=== PATIENT | female | born 1940 | race Caucasian/White ===

== ENCOUNTER 2017-01-20 20:18 | Inpatient (IN) | payer MEDICARE, BC, SELFPAY | END 2017-01-24 20:00 | disposition home or self-care (01) | DRG 222 | PROVIDERS: Admitting Provider Family Medicine; Emergency Provider Emergency Medicine; Family Provider Family Medicine; Visit Provider Family Medicine | DX: I21.4 Non-ST elevation (NSTEMI) myocardial infarction (principal); I50.23 Acute on chronic systolic (congestive) heart failure; Z45.02 Encounter for adjustment and management of automatic implantable cardiac defibrillator; I25.119 Atherosclerotic heart disease of native coronary artery with unspecified angina pectoris | CPT/HCPCS: 33225; 33249; 36415; 71010; 80048; 80053; 81001; 82550; 82553; 82803; 83880; 84484; 85025; 85610; 93005; 93041; 93306; 93458; 96365; 96375; 96376; 99151; 99285; C1725; C1769; C1882; C1894; C1895; C1898; C1900; J1644; Q9967 ==

== ENCOUNTER → 2017-02-01 | Outpatient (CLI) | payer MEDICARE, BC, SELFPAY | PROVIDERS: Visit Provider Internal Medicine | DX: I10 Essential (primary) hypertension (principal); I25.10 Atherosclerotic heart disease of native coronary artery without angina pectoris; E78.5 Hyperlipidemia, unspecified; Z95.810 Presence of automatic (implantable) cardiac defibrillator | CPT/HCPCS: 36415; 80048; 80076; 85025 ==

== ENCOUNTER → 2017-02-08 | Outpatient (CLI) | payer MEDICARE, BC, SELFPAY | PROVIDERS: Visit Provider Internal Medicine Cardiovascular Disease | DX: Z95.810 Presence of automatic (implantable) cardiac defibrillator (principal); I10 Essential (primary) hypertension; I25.10 Atherosclerotic heart disease of native coronary artery without angina pectoris; E78.5 Hyperlipidemia, unspecified | CPT/HCPCS: 36415; 80048; 80076; 85025 ==

== ENCOUNTER → 2017-02-09 | Outpatient (CLI) | payer MEDICARE, BC, SELFPAY | PROVIDERS: PCP Family Medicine; Visit Provider Family Medicine | DX: R41.3 Other amnesia (principal) | CPT/HCPCS: 70450 ==

== ENCOUNTER 2017-02-22 21:56 | Emergency (ER) | payer MEDICARE, BC, SELFPAY ==
[2017-02-22 21:59] VITALS: BP 149/65; PULSE 92; RESP 16; TEMP 37.1; O2SAT 96; BMI 29.9
--- NOTE | 2017-02-22 22:04 | [facility]H.EDCP ---
ED Disposition Clinical Impression: Pacemaker Chest pain Qualifiers: Chest pain type: precordial pain Qualified Code(s): R07.2 - Precordial pain Anemia Qualifiers: Anemia type: unspecified type Qualified Code(s): D64.9 - Anemia, unspecified CAD (coronary artery disease) Qualifiers: Coronary Disease-Associated Artery/Lesion type: unspecified vessel or lesion type [place] vs. transplanted heart: [place] heart Associated angina: angina presence unspecified Qualified Code(s): I25.10 - Atherosclerotic heart disease of [place] coronary artery without angina pectoris Disposition: Home, Self-Care Condition on Discharge: Good Instructions: DI for Chest Pain Referrals: Heath Rogers MD [Primary Care Provider] - - Critical Care Critical Care Time: No Attestation: On 02/22/17, the high probability of a clinically significant, sudden or life threatening deterioration of the following system(s) required my full and direct attention, intervention and personal management. The time I documented below is in addition to time spent performing reported procedures but includes the following listed in this critical care notation. Medical Decision Making - Medical Records Medical records reviewed: Yes: I reviewed the patient's medical records. Vital Signs: 02/22/17 21:59 02/22/17 22:32 02/22/17 23:02 Temperature 98.7 F Temperature Source Oral Pulse Rate [Left Radial] 92 H 81 85 Respiratory Rate 16 20 20 Blood Pressure [Left Arm] 149/65 161/100 161/73 Blood Pressure Mean [Left Arm] 93 120 102 Blood Pressure Source [Left Arm] Automatic Cuff Automatic Cuff Automatic Cuff Blood Pressure Position [Left Arm] Sitting Sitting 02 Sat by Pulse Oximetry 96 Oxygen Delivery Method Room Air 02/22/17 23:30 Temperature Temperature Source Pulse Rate [Left Radial] 79 Respiratory Rate 18 Blood Pressure [Left Arm] 148/58 Blood Pressure Mean [Left Arm] 88 Blood Pressure Source [Left Arm] Automatic Cuff Blood Pressure Position [Left Arm] Sitting 02 Sat by Pulse Oximetry 98 Oxygen Delivery Method Room Air - Lab Data Lab results reviewed: Yes: I reviewed the patient's lab results. Lab Results 02/22/17 23:00: WBC 6.1, RBC 3.43 L, Hgb 10.5 L, Hct 32.3 L, MCV 94.0, MCH 30.6, MCHC 32.6, RDW 15.0, Plt Count 239, MPV 7.4, Neut % (Auto) 65.0, Lymph % (Auto) 26.2, [place] % (Auto) 4.9, Eos % (Auto) 3.3, Baso % (Auto) 0.6, Neut # (Auto) 3.9, Lymph # (Auto) 1.6, [place] # (Auto) 0.3, Eos # (Auto) 0.2, Baso # (Auto) 0.0 02/22/17 23:00: Sodium 146 H, Potassium 3.8, Chloride 108 H, Carbon Dioxide 30, Anion Gap 11.8, BUN 14, Creatinine 0.84, Estimated Creat Clear 53, Estimated GFR 66, Est GFR ( Amer) 80, Glucose 178 H, Calcium 8.8, Total Bilirubin 0.1 L, AST 23, ALT 21, Alkaline Phosphatase 142 H, Total Creatine Kinase 90, CK-MB (CK-2) 1.3, CK-MB (CK-2) Rel Index 1.4, Troponin I < 0.02, Total Protein 6.8, Albumin 2.8 L, Globulin 4.0 H, Albumin/Globulin Ratio 0.7 L Result diagrams: 02/22/17 23:00 02/22/17 23:00 Orders (Tests/Meds): ORDERS Category Date Time Status XR chest 2V Stat Exams 02/22/17 22:14 Taken ECG Request by /Nse Stat Y 02/22/17 22:14 Ordered - Radiology Data #1 Image(s): Chest Image Reviewed: Yes I reviewed the patient's radiology image Preliminary Findings: Normal/NAD - ECG Data Tracing #1 Arrhythmias present: other (paced) - Physician Consults Physician Consulted: parker Reason -: Pt condition - Chuy Inquiry Pt receiving controlled substance: No Chest Pain HPI - General Stated Complaint: CHEST PAIN Time Seen by Provider: 02/22/17 22:04 Mode of Arrival: Family Vehicle Source of Information: Patient, Relative, Medical Record Limitations: No Limitations - History of Present Illness HPI narrative: this wf with recent heart cath but no stents with pacemaker has been tired but ok over the last few weeks but took ntg sl for 2 days in row and presents for follow up - no p
--- NOTE | 2017-02-22 22:14 | XR_ITS ---
XR chest 2V HISTORY: ITS.REASON: CHEST PAIN ORDERING PHYSICIAN: Tomy Farley MD PATIENT AGE: 76 years COMPARISON: 01/24/2017 FINDINGS: There is borderline cardiomegaly without failure. Tripolar pacemaker is present with AICD device. Pleural thickening noted in the right lateral hemithorax inferiorly similar to the previous exam. No lobar consolidation or collapse. No acute bony anomalies. IMPRESSION: 1. Borderline cardiomegaly without failure with pacemaker device present 2. Chronic pleural thickening on the right. 3. No change with no acute finding
--- NOTE | 2017-02-22 22:17 | PC.NURSE ---
PT REPORTS SHE TOOK ONE SL NITRO PILL PRIOR TO COMING TO THE ED. AND THAT SHE HAS ALREADY TAKEN 81MG OF ASPIRIN.
--- NOTE | 2017-02-22 22:25 | PC.NURSE ---
PT TO X-RAY
[2017-02-22 22:32] VITALS: BP 161/100; PULSE 81; RESP 20
[2017-02-22 23:02] VITALS: BP 161/73; PULSE 85; RESP 20
[2017-02-22 23:30] VITALS: BP 148/58; PULSE 79; RESP 18; O2SAT 98
[2017-02-22 23:43] LABS: Basophils % 0.6 % (0.1-2.0); Eosinophils # 0.2 K/mm3 (0.0-0.4); Eosinophils % 3.3 % (0.1-12.0); Hematocrit 32.3 % (37.0-47.0); Hemoglobin 10.5 g/dL (12.2-16.2); Lymphocytes # 1.6 K/mm3 (0.7-4.5); Lymphocytes % 26.2 K/mm3 (10-50); Mean Corpuscular HGB Conc 32.6 g/dL (31.8-35.4); Mean Corpuscular Hemoglobin 30.6 pg (27.0-31.2); Mean Platelet Volume 7.4 fl (7.4-10.4); Monocytes # 0.3 K/mm3 (0.1-1.0); Monocytes % 4.9 % (1.7-9.3); Neutrophils # 3.9 K/mm3 (1.8-7.8); Platelet Count 239 K/mm3 (142-424); Red Blood Count 3.43 M/mm3 (4.20-5.40); White Blood Count 6.1 K/mm3 (4.8-10.8)
[2017-02-23 00:10] LABS: Alanine Aminotransferase 21 U/L (12-78); Albumin Level 2.8 gm/dL (3.4-5.0); Albumin/Globulin Ratio 0.7 (1.1-1.8); Alkaline Phosphatase 142 U/L (46-116); Anion Gap 11.8 mEq/L (5-15); Aspartate Amino Transferase 23 U/L (15-37); Bilirubin,Total 0.1 mg/dL (0.2-1.0); Blood Urea Nitrogen 14 mg/dL (7-18); CKMB Relative Index 1.4 U/L (0-4.0); Calcium 8.8 mg/dL (8.5-10.1); Carbon Dioxide 30 mmol/L (21.0-32.0); Chloride 108 mmol/L (98-107); Creatine Kinase 90 U/L (26-192); Creatine Kinase MB 1.3 mg/ml (0.0-3.6); Creatinine Clearance Estimated 53 mL/min (0-300); Creatinine,Serum 0.84 mg/dL (0.55-1.02); Estimated Glomerular Filt Rate 66 ml/min (>60); GFR (African American) 80 ML/MIN (>60); Glucose 178 mg/dL (74-106); Potassium 3.8 mmoL/L (3.5-5.1); Sodium 146 mmol/L (136-145); Total Protein,Serum 6.8 gm/dL (6.4-8.2); Troponin I < 0.02 ng/ml (0.00-0.06)
[2017-02-23 01:24] VITALS: BP 140/52; PULSE 87; RESP 20
== END 2017-02-23 01:33 | disposition home or self-care (01) ==
PROVIDERS: Emergency Provider Emergency Medicine; PCP Family Medicine
DX: R07.2 Precordial pain (principal); I25.10 Atherosclerotic heart disease of native coronary artery without angina pectoris; Z95.0 Presence of cardiac pacemaker; D64.9 Anemia, unspecified; I11.0 Hypertensive heart disease with heart failure; I50.9 Heart failure, unspecified; I25.2 Old myocardial infarction; Z87.891 Personal history of nicotine dependence; Z79.02 Long term (current) use of antithrombotics/antiplatelets; Z79.82 Long term (current) use of aspirin; Z79.899 Other long term (current) drug therapy
CPT/HCPCS: 71046; 80053; 82550; 82553; 84484; 85025; 93005; 93041; 99284

== ENCOUNTER 2017-02-24 10:45 | Observation (INO) | payer MEDICARE, BC, SELFPAY ==
[2017-02-24] VITALS (7 sets, daily range): BP systolic 115–140; BP diastolic 44–88; PULSE 65–80; RESP 14–22; TEMP 36.7–36.9; O2SAT 92–98; BMI 29.2; BMI 30.7
--- NOTE | 2017-02-24 10:57 | XR_ITS ---
XR chest 2V HISTORY: ITS.REASON: chest pain ORDERING PHYSICIAN: Baldo Watson MD PATIENT AGE: 76 years COMPARISON: 02/22/2017 FINDINGS: Borderline cardiomegaly with cardiac pacemaker device once again noted unchanged. No evidence of CHF. Pleural thickening persists along the right lateral hemithorax inferiorly. The lungs are otherwise clear. No acute bony anomalies. IMPRESSION: No change cardiomegaly with pacemaker device present and pleural thickening. No change with no acute finding
--- NOTE | 2017-02-24 11:07 | [facility]H.EDCP ---
ED Disposition Clinical Impression: Chest pain, Exertional dyspnea, Elevated d-dimer, Stable angina, CAD (coronary artery disease) Disposition: Still a Patient Condition on Discharge: Fair - Critical Care Critical Care Time: No Attestation: On , the high probability of a clinically significant, sudden or life threatening deterioration of the following system(s) required my full and direct attention, intervention and personal management. The time I documented below is in addition to time spent performing reported procedures but includes the following listed in this critical care notation. Medical Decision Making Vital Signs: 02/24/17 10:45 02/24/17 12:08 Temperature 98.2 F Temperature Source Oral Pulse Rate [Left Brachial] 73 78 Respiratory Rate 16 14 Blood Pressure [Right Arm] 116/88 115/74 Blood Pressure Mean [Right Arm] 97 87 Blood Pressure Source [Right Arm] Automatic Cuff Automatic Cuff Blood Pressure Position [Right Arm] Sitting Sitting 02 Sat by Pulse Oximetry 95 98 Oxygen Delivery Method Room Air Room Air - Lab Data Lab Results 02/24/17 10:50: WBC 7.5, RBC 3.48 L, Hgb 10.5 L, Hct 32.5 L, MCV 93.3, MCH 30.3, MCHC 32.4, RDW 15.0, Plt Count 263, MPV 7.7, Neut % (Auto) 68.6, Lymph % (Auto) 22.6, [place] % (Auto) 5.1, Eos % (Auto) 3.1, Baso % (Auto) 0.6, Neut # (Auto) 5.2, Lymph # (Auto) 1.7, [place] # (Auto) 0.4, Eos # (Auto) 0.2, Baso # (Auto) 0.1 02/24/17 10:50: Sodium 140, Potassium 3.8, Chloride 103, Carbon Dioxide 29, Anion Gap 11.8, BUN 14, Creatinine 1.12 H D, Estimated Creat Clear 47, Estimated GFR 47 L, Est GFR ( Amer) 57 L D, Glucose 112 H, Calcium 8.6, Total Bilirubin 0.2, AST 27, ALT 22, Alkaline Phosphatase 143 H, Total Creatine Kinase 84, CK-MB (CK-2) 1.0, CK-MB (CK-2) Rel Index 1.2, Troponin I < 0.02, Total Protein 6.8, Albumin 2.9 L, Globulin 3.9 H, Albumin/Globulin Ratio 0.7 L 02/24/17 10:50: D-Dimer 1520 H* 02/24/17 10:50: B-Natriuretic Peptide 70 02/24/17 10:50: Digoxin 0.76 L Result diagrams: 02/24/17 10:50 02/24/17 10:50 Orders (Tests/Meds): ED MEDICATIONS Discontinued Medications Generic Name Dose Route Start Last Admin Trade Name Indy PRN Reason Stop Dose Admin Enoxaparin Sodium 60 mg 02/24/17 12:22 02/24/17 12:30 Lovenox 60mg/0.6ml Syringe SQ 02/24/17 12:23 60 mg ONCE ONE Administration Famotidine 20 mg 02/24/17 12:23 02/24/17 12:30 Pepcid 20mg/2ml Vial IV 02/24/17 12:24 20 mg ONCE ONE Administration Furosemide 20 mg 02/24/17 11:15 02/24/17 11:16 Lasix 20mg/2ml Vial IV 02/24/17 11:16 20 mg ONCE ONE Administration Iopamidol 70 ml 02/24/17 13:32 02/24/17 13:34 [id number]; 75ml Vial IV 02/24/17 13:33 70 ml ONCE ONE Administration Sodium Chloride 40 ml 02/24/17 13:32 02/24/17 13:34 Rad-Ns 50ml Vial IV 02/24/17 13:33 40 ml ONCE ONE Administration Sodium Chloride 10 ml 02/24/17 13:32 02/24/17 13:34 Rad-Saline Flush 10ml Syringe IV 02/24/17 13:33 10 ml ONCE ONE Administration - ECG Data Tracing #1 I reviewed this ECG and interpreted as documented below: Twelve-lead EKG shows a paced rhythm at 73/min. ECG initial impression date: 02/24/17 - Chuy Inquiry Pt receiving controlled substance: No [place] was queried for this patient: No Medical Decision Making Narrative: The patient had a normal BNP and troponin, she did have highly elevated d-dimer and I ordered a CT scan PE protocol and was given first dose of Lovenox. The case was discussed with Dr. Sawant who recommended observation. The case was discussed with Dr. Rogers who agreed to admit the patient CT scan was negative for PE. Chest Pain HPI - General Chief Complaint: Chest Pain Stated Complaint: Chest Pain Time Seen by Provider: 02/24/17 11:07 Mode of Arrival: Wheelchair Limitations: No Limitations Description of Symptoms (Recalled from ER Triage Doc. by RN): Pt c/o dull achey chest pain that started around 7:
--- NOTE | 2017-02-24 11:10 | ED_ITS ---
ED Disposition Clinical Impression: Chest pain, Exertional dyspnea, Elevated d-dimer, Stable angina, CAD (coronary artery disease) Disposition: Still a Patient Condition on Discharge: Fair - Critical Care Critical Care Time: No Attestation: On , the high probability of a clinically significant, sudden or life threatening deterioration of the following system(s) required my full and direct attention, intervention and personal management. The time I documented below is in addition to time spent performing reported procedures but includes the following listed in this critical care notation. Medical Decision Making Vital Signs: 02/24/17 10:45 02/24/17 12:08 Temperature 98.2 F Temperature Source Oral Pulse Rate [Left Brachial] 73 78 Respiratory Rate 16 14 Blood Pressure [Right Arm] 116/88 115/74 Blood Pressure Mean [Right Arm] 97 87 Blood Pressure Source [Right Arm] Automatic Cuff Automatic Cuff Blood Pressure Position [Right Arm] Sitting Sitting 02 Sat by Pulse Oximetry 95 98 Oxygen Delivery Method Room Air Room Air - Lab Data Lab Results 02/24/17 10:50: WBC 7.5, RBC 3.48 L, Hgb 10.5 L, Hct 32.5 L, MCV 93.3, MCH 30.3 , MCHC 32.4, RDW 15.0, Plt Count 263, MPV 7.7, Neut % (Auto) 68.6, Lymph % (Auto ) 22.6, [place] % (Auto) 5.1, Eos % (Auto) 3.1, Baso % (Auto) 0.6, Neut # (Auto) 5.2, Lymph # (Auto) 1.7, [place] # (Auto) 0.4, Eos # (Auto) 0.2, Baso # (Auto) 0.1 02/24/17 10:50: Sodium 140, Potassium 3.8, Chloride 103, Carbon Dioxide 29, Anion Gap 11.8, BUN 14, Creatinine 1.12 H D, Estimated Creat Clear 47, Estimated GFR 47 L, Est GFR ( Amer) 57 L D, Glucose 112 H, Calcium 8.6, Total Bilirubin 0.2, AST 27, ALT 22, Alkaline Phosphatase 143 H, Total Creatine Kinase 84, CK-MB (CK-2) 1.0, CK-MB (CK-2) Rel Index 1.2, Troponin I < 0.02, Total Protein 6.8, Albumin 2.9 L, Globulin 3.9 H, Albumin/Globulin Ratio 0.7 L 02/24/17 10:50: D-Dimer 1520 H* 02/24/17 10:50: B-Natriuretic Peptide 70 02/24/17 10:50: Digoxin 0.76 L Result diagrams: 02/24/17 10:50 02/24/17 10:50 Orders (Tests/Meds): ED MEDICATIONS Discontinued Medications Generic Name Dose Route Start Last Admin Trade Name Indy PRN Reason Stop Dose Admin Enoxaparin Sodium 60 mg 02/24/17 12:22 02/24/17 12:30 Lovenox 60mg/0.6ml Syringe SQ 02/24/17 12:23 60 mg ONCE ONE Administration Famotidine 20 mg 02/24/17 12:23 02/24/17 12:30 Pepcid 20mg/2ml Vial IV 02/24/17 12:24 20 mg ONCE ONE Administration Furosemide 20 mg 02/24/17 11:15 02/24/17 11:16 Lasix 20mg/2ml Vial IV 02/24/17 11:16 20 mg ONCE ONE Administration Iopamidol 70 ml 02/24/17 13:32 02/24/17 13:34 [id number]; 75ml Vial IV 02/24/17 13:33 70 ml ONCE ONE Administration Sodium Chloride 40 ml 02/24/17 13:32 02/24/17 13:34 Rad-Ns 50ml Vial IV 02/24/17 13:33 40 ml ONCE ONE Administration Sodium Chloride 10 ml 02/24/17 13:32 02/24/17 13:34 Rad-Saline Flush 10ml Syringe IV 02/24/17 13:33 10 ml ONCE ONE Administration - ECG Data Tracing #1 I reviewed this ECG and interpreted as documented below: Twelve-lead EKG shows a paced rhythm at 73/min. ECG initial impression date: 02/24/17 - Chuy Inquiry Pt receiving controlled substance: No Chuy was queried for this patient: No Medical Decision Becky
[2017-02-24 11:11] LABS: Basophils # 0.1 K/mm3 (0-0.2); Basophils % 0.6 % (0.1-2.0); Eosinophils # 0.2 K/mm3 (0.0-0.4); Eosinophils % 3.1 % (0.1-12.0); Hematocrit 32.5 % (37.0-47.0); Hemoglobin 10.5 g/dL (12.2-16.2); Lymphocytes # 1.7 K/mm3 (0.7-4.5); Lymphocytes % 22.6 K/mm3 (10-50); Mean Corpuscular HGB Conc 32.4 g/dL (31.8-35.4); Mean Corpuscular Hemoglobin 30.3 pg (27.0-31.2); Mean Corpuscular Volume 93.3 fl (81-99); Mean Platelet Volume 7.7 fl (7.4-10.4); Monocytes # 0.4 K/mm3 (0.1-1.0); Monocytes % 5.1 % (1.7-9.3); Neutrophils # 5.2 K/mm3 (1.8-7.8); Neutrophils % 68.6 % (37.0-80.0); Platelet Count 263 K/mm3 (142-424); Red Blood Count 3.48 M/mm3 (4.20-5.40); White Blood Count 7.5 K/mm3 (4.8-10.8)
[2017-02-24 11:38] LABS: Alanine Aminotransferase 22 U/L (12-78); Albumin Level 2.9 gm/dL (3.4-5.0); Albumin/Globulin Ratio 0.7 (1.1-1.8); Alkaline Phosphatase 143 U/L (46-116); Anion Gap 11.8 mEq/L (5-15); Aspartate Amino Transferase 27 U/L (15-37); Bilirubin,Total 0.2 mg/dL (0.2-1.0); Blood Urea Nitrogen 14 mg/dL (7-18); CKMB Relative Index 1.2 U/L (0-4.0); Calcium 8.6 mg/dL (8.5-10.1); Carbon Dioxide 29 mmol/L (21.0-32.0); Chloride 103 mmol/L (98-107); Creatine Kinase 84 U/L (26-192); Creatinine Clearance Estimated 47 mL/min (0-300); Creatinine,Serum 1.12 mg/dL (0.55-1.02); Estimated Glomerular Filt Rate 47 ml/min (>60); GFR (African American) 57 ML/MIN (>60); Globulin 3.9 gm/dl (1.3-3.2); Glucose 112 mg/dL (74-106); Potassium 3.8 mmoL/L (3.5-5.1); Sodium 140 mmol/L (136-145); Total Protein,Serum 6.8 gm/dL (6.4-8.2); Troponin I < 0.02 ng/ml (0.00-0.06)
[2017-02-24 12:10] LABS: D-Dimer 1520 (0-400)
[2017-02-24 12:27] LABS: Digoxin 0.76 ng/mL (1.15-2.56)
--- NOTE | 2017-02-24 13:27 | CT_ITS ---
CT angio chest HISTORY: Shortness of air, history of CHF ITS.REASON: SOA, R/O PE, CHF ORDERING PHYSICIAN: Heath Rogers MD PATIENT AGE: 76 years TECHNIQUE: Helical acquisition obtained following the bolus administration of 75 mL of Isovue 370 followed by a saline bolus. Axial, sagittal, and coronal reformatted images are generated and reviewed. COMPARISON: None FINDINGS: No evidence of aortic aneurysm, or dissection. No evidence of pulmonary embolus. The aorta shows some calcific plaque. No aneurysm or dissection of the aorta. Normal heart size without evidence of pericardial effusion. There is cardiac pacemaker device present by the left subclavian approach. The lungs are free of acute infiltrate. No effusions or lobar consolidation. There are scattered calcified granulomas. There is mild pleural in the right lower hemithorax laterally There is a small hiatal hernia. Upper abdominal images are unremarkable. No acute bony anomalies. IMPRESSION: No acute finding. No evidence of pulmonary embolus or aortic aneurysm.
[2017-02-24 15:56] LABS: Troponin I < 0.02 ng/ml (0.00-0.06)
--- NOTE | 2017-02-24 16:47 | HMH.CARDCON2 ---
History of Present Illness Consult date: 02/24/17 Requesting physician: Heath Rogers Consult reason: chest pain, shortness of breath Chief complaint: Chest pains, SOA History of present illness: 76-year-old white female with known coronary artery disease with a recent coronary stenting earlier last year and recent coronary angiogram last month without need for intervention at that time presented to the emergency department with recurrent episodes of chest pain that resolved with nitroglycerin sublingual. Patient relates associated shortness of breath. Symptoms occur with ordinary activities of daily living and around the house including cleaning or doing her laundry. She denies missing any of her medications but has quite a collection of meds that she no longer takes and I am concerned that maybe she has been confused about what to take. Patient was seen in the emergency department with workup unremarkable. Patient was admitted for observation with cardiology consult for further evaluation. Of note, on her cardiac catheterization last month, patient had either an in-stent restenosis or an underexpanded stent in the LAD. Plan was to treat medically, but at this time, since patient has had recurrent chest pain that resolves with nitroglycerin the plan was to admit the patient for cardiac catheterization. Review of Systems - *Cardiovascular Reports chest pain, Reports chest pain with activity, Reports shortness of breath with activity - *Respiratory Reports shortness of breath [facility] History Medical History: Reports:: Atrial Fibrillation, Cancer (skin), Congestive Heart Failure, Coronary Artery Disease, Hypertension, Myocardial Infarction Denies:: Diabetes Mellitus Type 1, Diabetes Mellitus Type 2, MRSA Other Medical History: Reports: Anemia, Cataracts Other Surgeries: Yes: Appendectomy, Hysterectomy-Total, Pacemaker, Other Amputation: No Fractures: No - *Social History Educational Level: Completed GED/General Educational Development Smoking Status: Former smoker Tobacco Type: cigarettes Smoking End Date: 4 YEARS Alcohol Intake: never Alcohol Intake Frequency:: a few times a month Occupational Status: retired Housing: house Household Members: children - Psychiatric History Expresses thoughts of harming self/others: None Suicide Plan Description: No Plan *Family Hx:: Coronary Artery Disease, Heart Attack Meds Home Medications Medication Instructions Recorded Confirmed Type clopidogrel 75 mg tablet 75 mg PO QDAY 02/17/17 02/24/17 History albuterol sulfate HFA 90 2 puff INHALATION Q6H PRN 02/18/17 02/24/17 History mcg/actuation aerosol inhaler aspirin 81 mg tablet,delayed 81 mg PO DAILY 02/18/17 02/24/17 History release budesonide-formoterol HFA 160 2 puff INHALATION Q12H PRN 02/18/17 02/24/17 History mcg-4.5 mcg/actuation aerosol inhaler gabapentin 600 mg tablet 600 mg PO TID 02/18/17 02/24/17 History multivitamin tablet 1 tab PO DAILY 02/18/17 02/24/17 History nitroglycerin 0.4 mg sublingual 0.4 mg SUBLINGUAL NEEDED PRN 02/18/17 02/24/17 History tablet Digoxin 125 mcg PO DAILY 02/22/17 02/24/17 History Isosorbide Mononitrate [Imdur 60mg 60 mg PO DAILY 02/22/17 02/24/17 History ER tablet] Losartan Potassium [Cozaar] 100 mg PO QDAY 02/22/17 02/24/17 History Pantoprazole Sodium [Protonix 40mg 40 mg PO DAILY 02/22/17 02/24/17 History tablet] Acetaminophen with Codeine 1 tab PO Q6HP PRN 02/24/17 02/24/17 History [Tylenol with Codeine #3 tablet] Escitalopram Oxalate [Lexapro] 20 mg PO DAILY 02/24/17 02/24/17 History Furosemide [Lasix 40mg tab] 40 mg PO BID 02/24/17 02/24/17 History Pramipexole Di-HCl [Mirapex] 2 mg PO HS 02/24/17 02/24/17 History Trazodone HCl 150 mg PO HS 02/24/17 02/24/17 History Allergies Allergy/AdvReac Type Severity Reaction Status Date / Time No Known Allergies Allergy Verified 02/22/17 22:07 Exam Vital signs and Labs for Last 24 Hours:
--- NOTE | 2017-02-24 16:51 | P.CONS_ITS ---
History of Present Illness Consult date: 02/24/17 Requesting physician: Heath Rogers Consult reason: chest pain, shortness of breath Chief complaint: Chest pains, SOA History of present illness: 76-year-old white female with known coronary artery disease with a recent coronary stenting earlier last year and recent coronary angiogram last month without need for intervention at that time presented to the emergency department with recurrent episodes of chest pain that resolved with nitroglycerin sublingual. Patient relates associated shortness of breath. Symptoms occur with ordinary activities of daily living and around the house including cleaning or doing her laundry. She denies missing any of her medications but has quite a collection of meds that she no longer takes and I am concerned that maybe she has been confused about what to take. Patient was seen in the emergency department with workup unremarkable. Patient was admitted for observation with cardiology consult for further evaluation. Of note, on her cardiac catheterization last month, patient had either an in-stent restenosis or an underexpanded stent in the LAD. Plan was to treat medically, but at this time, since patient has had recurrent chest pain that resolves with nitroglycerin the plan was to admit the patient for cardiac catheterization. Review of Systems - *Cardiovascular Reports chest pain, Reports chest pain with activity, Reports shortness of breath with activity - *Respiratory Reports shortness of breath [facility] History Medical History: Reports:: Atrial Fibrillation, Cancer (skin), Congestive Heart Failure, Coronary Artery Disease, Hypertension, Myocardial Infarction Denies:: Diabetes Mellitus Type 1, Diabetes Mellitus Type 2, MRSA Other Medical History: Reports: Anemia, Cataracts Other Surgeries: Yes: Appendectomy, Hysterectomy-Total, Pacemaker, Other Amputation: No Fractures: No - *Social History Educational Level: Completed GED/General Educational Development Smoking Status: Former smoker Tobacco Type: cigarettes Smoking End Date: 4 YEARS Alcohol Intake: never Alcohol Intake Frequency:: a few times a month Occupational Status: retired Housing: house Household Members: children - Psychiatric History Expresses thoughts of harming self/others: None Suicide Plan Description: No Plan *Family Hx:: Coronary Artery Disease, Heart Attack Meds Home Medications Medication Instructions Recorded Confirmed Type clopidogrel 75 mg tablet 75 mg PO QDAY 02/17/17 02/24/17 History albuterol sulfate HFA 90 2 puff INHALATION Q6H PRN 02/18/17 02/24/17 History mcg/actuation aerosol inhaler aspirin 81 mg tablet,delayed 81 mg PO DAILY 02/18/17 02/24/17 History release budesonide-formoterol HFA 160 2 puff INHALATION Q12H PRN 02/18/17 02/24/17 History mcg-4.5 mcg/actuation aerosol inhaler gabapentin 600 mg tablet 600 mg PO TID 02/18/17 02/24/17 History multivitamin tablet 1 tab PO DAILY 02/18/17 02/24/17 History nitroglycerin 0.4 mg sublingual 0.4 mg SUBLINGUAL NEEDED PRN 02/18/17 History tablet Digoxin 125 mcg PO DAILY 02/22/17 02/24/17 History Isosorbide Mononitrate [Imdur 60mg 60 mg PO DAILY 02/22/17 02/24/17 History ER tablet] Losartan Potassium [Cozaar] 100 mg PO QDAY 02/22/17 02/24/17 History Pantoprazole Sodium [Protonix 40mg 40 mg PO DAILY 02/22/17 02/24/17 History tablet] Acetaminophen with Codeine 1 tab PO Q6HP PRN 02/24/17 02/24/17 History [Tylenol with Codeine #3
--- NOTE | 2017-02-24 17:29 | HMH.HP ---
*Admission Date: 02/24/17 *Chief complaint: Chest pain and shortness of breath *History of present illness: 26-year-old female with recent hospitalization for non-ST elevation ND with findings of cardiomyopathy and ejection fraction of 20% who is status post AICD implantation presented to the emergency department for the second time in 48 hours with complaints of chest pain. At the time of interview she describes her chest pain to me as a sharp chest pain located in the upper sternum that occurred while she was vacuuming at home. Patient took nitroglycerin and 30-45 minutes later her chest pain resolved. Patient states this chest pain she had today is different than the one that brought her to the emergency department 48 hours prior. She describes that chest pain is more of a chest heaviness and throbbing site in the chest. Workup in the emergency department was significant for negative troponin and negative BNP but an elevated d-dimer. CT scan of the chest was ordered to rule out pulmonary embolism. Patient is now pain-free [facility] History I have reviewed the patient's past medical history: Yes Medical History: Reports:: Atrial Fibrillation, Cancer (skin), Congestive Heart Failure, Coronary Artery Disease, Hypertension, Myocardial Infarction Denies:: Diabetes Mellitus Type 1, Diabetes Mellitus Type 2, MRSA Other Medical History: Reports: Anemia, Cataracts Other Surgeries: Yes: Appendectomy, Hysterectomy-Total, Pacemaker, Other Amputation: No Fractures: No - *Social History Educational Level: Completed GED/General Educational Development Smoking Status: Former smoker Tobacco Type: cigarettes Smoking End Date: 4 YEARS Alcohol Intake: never Alcohol Intake Frequency:: a few times a month Occupational Status: retired Housing: house Household Members: children - Psychiatric History Expresses thoughts of harming self/others: None Suicide Plan Description: No Plan *Family Hx:: Coronary Artery Disease, Heart Attack Review of Systems - Review of Systems Review of systems:: pertinent systems reviewed and negative unless documented below - *Cardiovascular Reports chest pain, Reports chest pain with activity, Reports shortness of breath Meds Home Medications Medication Instructions Recorded Confirmed Type clopidogrel 75 mg tablet 75 mg PO QDAY 02/17/17 02/24/17 History albuterol sulfate HFA 90 2 puff INHALATION Q6H PRN 02/18/17 02/24/17 History mcg/actuation aerosol inhaler aspirin 81 mg tablet,delayed 81 mg PO DAILY 02/18/17 02/24/17 History release budesonide-formoterol HFA 160 2 puff INHALATION Q12H PRN 02/18/17 02/24/17 History mcg-4.5 mcg/actuation aerosol inhaler gabapentin 600 mg tablet 600 mg PO TID 02/18/17 02/24/17 History multivitamin tablet 1 tab PO DAILY 02/18/17 02/24/17 History nitroglycerin 0.4 mg sublingual 0.4 mg SUBLINGUAL NEEDED PRN 02/18/17 02/24/17 History tablet Digoxin 125 mcg PO DAILY 02/22/17 02/24/17 History Isosorbide Mononitrate [Imdur 60mg 60 mg PO DAILY 02/22/17 02/24/17 History ER tablet] Losartan Potassium [Cozaar] 100 mg PO QDAY 02/22/17 02/24/17 History Pantoprazole Sodium [Protonix 40mg 40 mg PO DAILY 02/22/17 02/24/17 History tablet] Acetaminophen with Codeine 1 tab PO Q6HP PRN 02/24/17 02/24/17 History [Tylenol with Codeine #3 tablet] Escitalopram Oxalate [Lexapro] 20 mg PO DAILY 02/24/17 02/24/17 History Furosemide [Lasix 40mg tab] 40 mg PO BID 02/24/17 02/24/17 History Pramipexole Di-HCl [Mirapex] 2 mg PO HS 02/24/17 02/24/17 History Trazodone HCl 150 mg PO HS 02/24/17 02/24/17 History Allergies Allergy/AdvReac Type Severity Reaction Status Date / Time No Known Allergies Allergy Verified 02/22/17 22:07 Exam Vital signs and Labs for Last 24 Hours: Temp Pulse Resp BP Pulse Ox 98.0 F 72 22 115/44 92 L 02/24/17 16:10 02/24/17 16:10 02/24/17 16:10 02/24/17 16:10 02/24/17 16:10 Laboratory Results - last 24 hr
--- NOTE | 2017-02-24 17:32 | P.HP_ITS ---
*Admission Date: 02/24/17 *Chief complaint: Chest pain and shortness of breath *History of present illness: 26-year-old female with recent hospitalization for non-ST elevation [place] with findings of cardiomyopathy and ejection fraction of 20% who is status post AICD implantation presented to the emergency department for the second time in 48 hours with complaints of chest pain. At the time of interview she describes her chest pain to me as a sharp chest pain located in the upper sternum that occurred while she was vacuuming at home. Patient took nitroglycerin and 30-45 minutes later her chest pain resolved. Patient states this chest pain she had today is different than the one that brought her to the emergency department 48 hours prior. She describes that chest pain is more of a chest heaviness and throbbing site in the chest. Workup in the emergency department was significant for negative troponin and negative BNP but an elevated d-dimer. CT scan of the chest was ordered to rule out pulmonary embolism. Patient is now pain-free [facility] History I have reviewed the patient's past medical history: Yes Medical History: Reports:: Atrial Fibrillation, Cancer (skin), Congestive Heart Failure, Coronary Artery Disease, Hypertension, Myocardial Infarction Denies:: Diabetes Mellitus Type 1, Diabetes Mellitus Type 2, MRSA Other Medical History: Reports: Anemia, Cataracts Other Surgeries: Yes: Appendectomy, Hysterectomy-Total, Pacemaker, Other Amputation: No Fractures: No - *Social History Educational Level: Completed GED/General Educational Development Smoking Status: Former smoker Tobacco Type: cigarettes Smoking End Date: 4 YEARS Alcohol Intake: never Alcohol Intake Frequency:: a few times a month Occupational Status: retired Housing: house Household Members: children - Psychiatric History Expresses thoughts of harming self/others: None Suicide Plan Description: No Plan *Family Hx:: Coronary Artery Disease, Heart Attack Review of Systems - Review of Systems Review of systems:: pertinent systems reviewed and negative unless documented below - *Cardiovascular Reports chest pain, Reports chest pain with activity, Reports shortness of breath Meds Home Medications Medication Instructions Recorded Confirmed Type clopidogrel 75 mg tablet 75 mg PO QDAY 02/17/17 02/24/17 History albuterol sulfate HFA 90 2 puff INHALATION Q6H PRN 02/18/17 02/24/17 History mcg/actuation aerosol inhaler aspirin 81 mg tablet,delayed 81 mg PO DAILY 02/18/17 02/24/17 History release budesonide-formoterol HFA 160 2 puff INHALATION Q12H PRN 02/18/17 02/24/17 History mcg-4.5 mcg/actuation aerosol inhaler gabapentin 600 mg tablet 600 mg PO TID 02/18/17 02/24/17 History multivitamin tablet 1 tab PO DAILY 02/18/17 02/24/17 History nitroglycerin 0.4 mg sublingual 0.4 mg SUBLINGUAL NEEDED PRN 02/18/17 History tablet Digoxin 125 mcg PO DAILY 02/22/17 02/24/17 History Isosorbide Mononitrate [Imdur 60mg 60 mg PO DAILY 02/22/17 02/24/17 History ER tablet] Losartan Potassium [Cozaar] 100 mg PO QDAY 02/22/17 02/24/17 History Pantoprazole Sodium [Protonix 40mg 40 mg PO DAILY 02/22/17 02/24/17 History tablet] Acetaminophen with Codeine 1 tab PO Q6HP PRN 02/24/17 02/24/17 History [Tylenol with Codeine #3 tablet] Escitalopram Oxalate [Lexapro] 20 mg PO DAILY 02/24/17 02/24/17 History Furosemide [Lasix 40mg tab] 40 mg PO BID 02/24/17 02/24/17 History
--- NOTE | 2017-02-24 19:20 | PC.NURSE ---
REPORT RECEIVED FROM SAMEER.ROBB, PT FULL CODE
[2017-02-25] VITALS (25 sets, daily range): BP systolic 89–148; BP diastolic 34–67; PULSE 52–88; RESP 10–20; TEMP 36.6–37.1; O2SAT 89–98; BMI 30.9
--- NOTE | 2017-02-25 | IR_ITS ---
CARDIAC CATHETERIZATION DATE OF CATHETERIZATION:02/25/2017 2:32 PM PROCEDURES: 1. Left heart catheterization 2. Left ventriculogram 3. Selective coronary angiogram 4. FFR to the LAD 5. Drug-eluting stent deployment to the proximal LAD with angioplasty to the mid LAD INDICATION FOR TEST: 1. Angina pectoris class III to IV 2. Coronary artery disease 3. Ischemic response to adenosine Informed consent was obtained prior to the procedure. COMPLICATIONS: None ESTIMATED BLOOD LOSS: Less than 10 ml. TECHNIQUE: One percent lidocaine used to anesthetize the right anterior aspect of the wrist. The right radial artery was accessed via the Seldinger technique. A 6 [place] sheath was placed in the right radial artery. 2.5 mg of verapamil, 800 mcg of nitroglycerin and 5000 U Heparin were given through the arterial sheath. The trap catheter was also used to perform left heart catheterization left ventriculogram and selective coronary angiogram. At the end of the diagnostic angiogram and additional dosage of heparin was administered giving an ACT greater than 300 seconds. An [employer] left guide catheter was placed in the ascending aorta and an FFR wire was normalized. The guide catheter was used intubate the left main artery and the FFR wire was placed distal in the LAD. Adenosine was infused in the FFR index dropped to 0.73 at this point a 3 mm x 15 mm resolute Alli stent was placed proximally at 20 onesimo. This reduce the underexpanded previous stent to an appropriate size. A 2.75 x 12 mm balloon was in placed into the LAD and deployed at 22 and 24 onesimo. Still there was under expansion of the stent therefore a 3 mm x 12 mm noncompliant balloon was placed into the mid segment of the LAD and deployed at 24 onesimo. The balloon was inflated several times distally to proximally all contained within the previous stents placed in a different hospital. Excellent angiographic results were obtained with RC-3 flow down the vessel before and after the procedure. The stents that were placed prior to today's intervention for both undersized as well as poorly opposed to the vessel wall. At the end of the procedure the stents and much better sizing with better proximal and distal transitioning to the [place] vessel. At the end of procedure the apparatus was removed the sheath was removed good hemostasis was achieved using TR banding patient was transferred to the postop holding area in stable condition ANGIOGRAPHIC RESULTS: 1. The left main artery normal 2. The left anterior descending artery has a stent in its very proximal segment which extends into the mid segment. Proximally there is a 50% lesion which is under deployment of a previous stent. There is no angiographically identifiable in-stent restenosis. The mid segment also has under deployed stent area without angiographic identifiable in-stent restenosis 3. The circumflex artery is nondominant giving rise to a very large obtuse marginal artery which has minimal 10-20% stenoses 4. The right coronary artery dominant normal 5. The BOYCE ventriculogram reveals normal 65% 6. The left ventricular end-diastolic pressure 20 mmHg IMPRESSION: 1. Under deployed proximal and mid vessel LAD stents which created an ischemic response to adenosine with an FFR index of at least 0.73 2. Successful drug-eluting stenting to the proximal LAD with significant angiographic improvement with stenosis reduced to less than 10% with 1 drug-eluting stent followed by successful high pressure angioplasty to the mid LAD reducing the abdomen deployed stenosis also less than 10% 3. Normal ejection fraction 4. Mildly elevated LVEDP PLAN: 1. Dual antiplatelet therapy 2. Antianginal medications 3. Risk factor modification 4. Cardiac rehabil
--- NOTE | 2017-02-25 00:16 | PC.NURSE ---
PT ON TELEMETRY, BBB; HEART CATH TOMORROW
--- NOTE | 2017-02-25 00:17 | PC.NURSE ---
PT REQUESTED A DEPENDS FOR BEDTIME, STATED WHEN I TAKE MY FLUID PILL AT BEDTIME, I A LOT OF THE TIME WILL SOAK MY BED
--- NOTE | 2017-02-25 06:07 | PC.NURSE ---
IV PLACED IN ER
--- NOTE | 2017-02-25 06:24 | PC.NURSE ---
PT SLEPT INTERVALS THIS SHIFT. IV SECURE AND PATENT. NPO SINCE MIDNIGHT R/T PT TO HAVE HEART CATHETERIZATION TODAY. BREATH SOUNDS EQUAL AND CLEAR. NO C/O CHEST PAIN OR AND OTHER DISCOMFORT. NO SOA. PT ON ROOM AIR. VSS. PT STABLE. WILL CONTINUE TO MONITOR. REPORT TO BE GIVEN TO ONCOMING NURSE.
--- NOTE | 2017-02-25 07:13 | HMH.ACPN ---
Internal Medicine - PN: Subj *Date: 02/25/17 *Time: 07:13 Interval history: Patient did well overnight and did not have any chest pain. She is scheduled for cardiac catheterization this morning Exam Vital signs and Labs for Last 24 Hours: Temp Pulse Resp BP Pulse Ox 97.9 F 74 18 104/36 93 L 02/25/17 04:07 02/25/17 04:07 02/25/17 04:07 02/25/17 04:07 02/25/17 04:07 Laboratory Results - last 24 hr 02/24/17 15:18: Troponin I < 0.02 I & O for Last 24 hours: Intake & Output 02/22/17 02/23/17 02/24/17 02/25/17 11:59 11:59 11:59 11:59 Intake Total 1085 / 1085 Balance 1085 / 1085 Weight 157 lb 7 oz Narrative: Looks well. Lungs are clear. Heart rate is regular Assessment and Plan (1) Chest pain Current visit: Yes Status: Acute Category: Medical Code(s): R07.9 - Chest pain, unspecified (2) Elevated d-dimer Current visit: Yes Status: Acute Category: Medical Code(s): R79.89 - Other specified abnormal findings of blood chemistry (3) CAD (coronary artery disease) Current visit: Yes Status: Chronic Qualifiers: Category: Medical Code(s): I25.10 - Atherosclerotic heart disease of [place] coronary artery without angina pectoris (4) Anemia Current visit: No Status: Acute Qualifiers: Anemia type: unspecified type Qualified Code(s): D64.9 - Anemia, unspecified Category: Medical Code(s): D64.9 - Anemia, unspecified - Assessment and plan all Dx Assessment and Plan for all problems:: React cath today, disposition after
--- NOTE | 2017-02-25 07:15 | HMH.DCSUM ---
General - General Admission date: 02/24/17 Discharge date: 02/26/17 HPI HPI: 26-year-old female with recent hospitalization for non-ST elevation [place] with findings of cardiomyopathy and ejection fraction of 20% who is status post AICD implantation presented to the emergency department for the second time in 48 hours with complaints of chest pain. At the time of interview she describes her chest pain to me as a sharp chest pain located in the upper sternum that occurred while she was vacuuming at home. Patient took nitroglycerin and 30-45 minutes later her chest pain resolved. Patient states this chest pain she had today is different than the one that brought her to the emergency department 48 hours prior. She describes that chest pain is more of a chest heaviness and throbbing site in the chest. Workup in the emergency department was significant for negative troponin and negative BNP but an elevated d-dimer. CT scan of the chest was ordered to rule out pulmonary embolism, which did. Patient is now pain-free Objective Vital signs: Temp Pulse Resp BP Pulse Ox 97.9 F 74 18 104/36 93 L 02/25/17 04:07 02/25/17 04:07 02/25/17 04:07 02/25/17 04:07 02/25/17 04:07 Hospital Course Hospital Course: Patient was admitted. Cardiology service was consulted. Decision was made to take the patient to the cardiac Quality Control Operator and on February 25 she underwent left heart catheterization with subsequent stenting proximal LAD. In postprocedural period Patient remained pain-free. On February 26 she was discharged from home and will follow up with cardiology service next week. Prior to discharge I went to the patient's 2 large plastic bags of medications and removed several medications with the patient is no longer going to take. These medicines were not part of her medication list and we have asked the pharmacy to dispose of them. These medications included several diuretics as well as varying doses of carvedilol patient will follow up with me in a week Results Labs on day of discharge: Labs from last 24 hours 02/24/17 15:18 Troponin I < 0.02 DS: Diagnosis - Discharge Diagnosis (1) CAD (coronary artery disease) Status: Chronic (2) Chest pain Status: Acute (3) Elevated d-dimer Status: Acute (4) Anemia Status: Acute Meds Home Medications Medication Instructions Recorded Confirmed Type clopidogrel 75 mg tablet 75 mg PO QDAY 02/17/17 02/24/17 History albuterol sulfate HFA 90 2 puff INHALATION Q6H PRN 02/18/17 02/24/17 History mcg/actuation aerosol inhaler aspirin 81 mg tablet,delayed 81 mg PO DAILY 02/18/17 02/24/17 History release budesonide-formoterol HFA 160 2 puff INHALATION Q12H PRN 02/18/17 02/24/17 History mcg-4.5 mcg/actuation aerosol inhaler gabapentin 600 mg tablet 600 mg PO TID 02/18/17 02/24/17 History multivitamin tablet 1 tab PO DAILY 02/18/17 02/24/17 History nitroglycerin 0.4 mg sublingual 0.4 mg SUBLINGUAL NEEDED PRN 02/18/17 02/24/17 History tablet Digoxin 125 mcg PO DAILY 02/22/17 02/24/17 History Isosorbide Mononitrate [Imdur 60mg 60 mg PO DAILY 02/22/17 02/24/17 History ER tablet] Losartan Potassium [Cozaar] 100 mg PO QDAY 02/22/17 02/24/17 History Pantoprazole Sodium [Protonix 40mg 40 mg PO DAILY 02/22/17 02/24/17 History tablet] Acetaminophen with Codeine 1 tab PO Q6HP PRN 02/24/17 02/24/17 History [Tylenol with Codeine #3 tablet] Escitalopram Oxalate [Lexapro] 20 mg PO DAILY 02/24/17 02/24/17 History Furosemide [Lasix 40mg tab] 40 mg PO BID 02/24/17 02/24/17 History Pramipexole Di-HCl [Mirapex] 2 mg PO HS 02/24/17 02/24/17 History Trazodone HCl 150 mg PO HS 02/24/17 02/24/17 History Allergies Allergy/AdvReac Type Severity Reaction Status Date / Time No Known Allergies Allergy Verified 02/22/17 22:07 Discharge Plan - Patient Discharge Instructions Activity: Ambulate as Tolerated Diet:
--- NOTE | 2017-02-25 07:39 | HMH.PHAVTE ---
[facility] Pharmacy VTE Monitoring - Patient Demographics Admission date: 02/24/17 Report Date: 02/25/17 Time: 07:39 Allergies/Adverse Reactions: No Known Allergies Allergy (Verified 02/22/17 22:07) Height: 1.52 m Weight: 71.412 kg Patient Problems: Current Active Problems Chest pain (Acute) Exertional dyspnea (Acute) Elevated d-dimer (Acute) Stable angina (Acute) Cardiomyopathy (Acute) CAD (coronary artery disease) (Chronic) - VTE Risk Labs: VTE Related Lab Results Hgb 10.5 g/dL (12.2-16.2) L 02/24/17 10:50 Hct 32.5 % (37.0-47.0) L 02/24/17 10:50 Plt Count 263 K/mm3 (142-424) 02/24/17 10:50 BUN 14 mg/dL (7-18) 02/24/17 10:50 Creatinine 1.12 mg/dL (0.55-1.02) H D 02/24/17 10:50 Estimated Creat Clear 47 mL/min (0-300) 02/24/17 10:50 Was VTE Risk Assessment Performed: Yes VTE Score: 2 VTE Risk Level: Very Low Risk - Prophylaxis VTE Prophylaxis Ordered?: Yes Types of VTE Prophylaxis: TEDS Knee High Location of Applied Device: Bilateral Lower Extremeties - VTE Diagnosis Confirmed Treatment or plan recommended: Continue Current Treatment
--- NOTE | 2017-02-25 10:00 | PC.NURSE ---
PATIENT TAKEN TO INSTRUMENTATION DESIGNER AT 924
--- NOTE | 2017-02-25 19:03 | PC.NURSE ---
PT TOT HE FLOOR AT 1440. TRACELET IN PLACE WITH 13 ML OF AIR. 2MLS OF AIR REMOVED EVERY 15-30 MINUTES. AT THIS TIME 1830, THE AIR IS COMPLETELY REMOVED WITH TRACE LET IN PLACE. AT 1900 4X4 AND TEGADERM APPLIED. NO BRUISING OR HEMATOMA NOTED. WILL CONTINUE TO MONITOR.
--- NOTE | 2017-02-25 22:42 | PC.NURSE ---
Moving pt to stepdown room 219 at this time.
[2017-02-26] VITALS (7 sets, daily range): BP systolic 97–127; BP diastolic 41–84; PULSE 60–84; RESP 14–19; TEMP 36.2–37.1; O2SAT 92–95
--- NOTE | 2017-02-26 05:06 | PC.NURSE ---
Pt slept well in between getting up to void, which she did quite often, approximately every two hours. Sleep would return quickly following returning to bed. Cath site dressing appears c/d/i with palpable pulse and kess than 3 second cap refill. Only c/o mild pain in early shift prior to getting Gabapentin which she reported takes care of her chronic pain. Nothing acute to report this shift as pt has remained safe and stable throughout my care.
[2017-02-26 06:27] LABS: Anion Gap 9.9 mEq/L (5-15); Blood Urea Nitrogen 13 mg/dL (7-18); Carbon Dioxide 30 mmol/L (21.0-32.0); Chloride 105 mmol/L (98-107); Creatinine Clearance Estimated 55 mL/min (0-300); Creatinine,Serum 0.96 mg/dL (0.55-1.02); Estimated Glomerular Filt Rate 57 ml/min (>60); GFR (African American) 69 ML/MIN (>60); Glucose 101 mg/dL (74-106); Potassium 3.9 mmoL/L (3.5-5.1); Sodium 141 mmol/L (136-145)
--- NOTE | 2017-02-26 06:57 | PC.NURSE ---
Med pass last night at 2100, could not find pt's pramapaxoi in her home meds. Pt insisted she took it last night. Went through all mediations could not find med. Called pharmacy, Ko Carvajal confirmed there were none in the omni cells but was available in pharmacy. Pt reports she couldn't sleep without it. Ko suggested phoning the MD for a subsitute suggestion. As Jung Elder to come over to look with a fresh set of eyes. She found the medication in the bottom of a bag the pt had. It was not processed through pharmacy, but we were able to verify the medication as being in the correct bottle and dose, which was given. Will alert oncoming nurse so pharmacy can process medication for scanning doses.
[2017-02-28 08:28] LABS: CATHL Activated Clotting Time 265 SEC (74-125)
[2017-02-28 08:30] LABS: CATHL Activated Clotting Time 351 SEC (74-125)
--- NOTE | 2017-03-03 10:50 | PC.NURSE ---
post procedure call made, pt states she is doing well, reports her blood pressure has been dropping but has f/u appt with this afternoon. denies any further questions/concerns at this time
== END 2017-02-26 10:35 | disposition home or self-care (01) ==
LOC: ER 11:09 → 2ND 13:07 → ICU 02-25 15:03 → 2ND 02-26 00:01
PROVIDERS: Internal Medicine; Admitting Provider Family Medicine; Emergency Provider Emergency Medicine; PCP Family Medicine; Visit Provider Family Medicine
DX: I50.23 Acute on chronic systolic (congestive) heart failure (principal); I21.4 Non-ST elevation (NSTEMI) myocardial infarction; I25.10 Atherosclerotic heart disease of native coronary artery without angina pectoris; Z95.810 Presence of automatic (implantable) cardiac defibrillator; I11.0 Hypertensive heart disease with heart failure; I42.9 Cardiomyopathy, unspecified
CPT/HCPCS: 36415; 71046; 71275; 80048; 80053; 80162; 82550; 82553; 83880; 84484; 85025; 85347; 85378; 92928; 93005; 93041; 93458; 93571; 96374; 99152; 99153; 99285; C1725; C1769; C1876; C9600; G0378; J1644; Q9967

== ENCOUNTER → 2017-03-03 11:56 | Outpatient (CLI) | payer MEDICARE, BC, SELFPAY ==
[2017-03-03 13:18] LABS: Anion Gap 11.9 mEq/L (5-15); Blood Urea Nitrogen 22 mg/dL (7-18); Carbon Dioxide 27 mmol/L (21.0-32.0); Chloride 100 mmol/L (98-107); Creatinine,Serum 1.23 mg/dL (0.55-1.02); Estimated Glomerular Filt Rate 43 ml/min (>60); GFR (African American) 52 ML/MIN (>60); Glucose 114 mg/dL (74-106); Potassium 3.9 mmoL/L (3.5-5.1); Sodium 135 mmol/L (136-145)
== END ==
PROVIDERS: PCP Family Medicine; Visit Provider Internal Medicine Cardiovascular Disease
DX: I25.10 Atherosclerotic heart disease of native coronary artery without angina pectoris (principal); I50.9 Heart failure, unspecified; Z95.810 Presence of automatic (implantable) cardiac defibrillator
CPT/HCPCS: 36415; 80048

== ENCOUNTER 2017-03-14 14:00 | Outpatient (RCR) | payer MEDICARE, SELFPAY | END 2017-03-14 14:02 | disposition home or self-care (01) | LOC: PT 14:00 | PROVIDERS: Visit Provider Internal Medicine | DX: Z95.5 Presence of coronary angioplasty implant and graft (principal) | CPT/HCPCS: 93798 ==

== ENCOUNTER → 2017-03-22 12:21 | Outpatient (CLI) | payer MEDICARE, BC, SELFPAY ==
[2017-03-22 13:15] LABS: Anion Gap 14.7 mEq/L (5-15); Blood Urea Nitrogen 21 mg/dL (7-18); Carbon Dioxide 28 mmol/L (21.0-32.0); Chloride 105 mmol/L (98-107); Creatinine,Serum 0.95 mg/dL (0.55-1.02); Estimated Glomerular Filt Rate 57 ml/min (>60); GFR (African American) 69 ML/MIN (>60); Glucose 91 mg/dL (74-106); Potassium 3.7 mmoL/L (3.5-5.1); Sodium 144 mmol/L (136-145)
--- NOTE | 2017-03-22 14:23 | CA_ITS ---
PROCEDURE: 2-D M-mode and color Doppler study INDICATIONS FOR THE TEST: Chest pain+ COPD Heart Murmur Tobacco Smoking Palpitations Fatigue Syncope Edema+ Hypertension+Diabetes Mellitus Rheumatic Fever SOB+CHE Obesity Hyperlipidemia Family History HD+ Additional History h/o CHF, 25-30% EF echo 01/2017, AICD, CAD PATIENT INFORMATION HEIGHT:60 WEIGHT: 166 GENDER: Female B/P: 110/70 2-D/M-MODE INTERPRETATION: 2-D MEASUREMENTS OBSERVED VALUES IN CMS Right Ventricular Dimension (RVDd) 1.7 Interventricular Septum (Thickness)(IVsd) 1.1 Left Ventricular Internal Dimensions(LVIDd) 4.9 Left Ventricular Posterior Wall (Thickness)(LVPWd) 1.1 Aortic Root 2.6 Aortic Cusp Separation 2.0 Left Atrial Dimensions (LAD) 4.2 2D 1. Left atrium is mildly enlarged, left ventricle is normal size, there is mild concentric left ventricular hypertrophy, visually estimated ejection fraction 50% with no obvious regional wall motion abnormality. 2. The right atrium and right ventricle are normal size and contractility, there is a catheter noted in the right atrium and right ventricle which is likely an AICD lead. 3. The aortic valve is minimally thickened and fibrosed. 4. The mitral and tricuspid valve leaflets are minimally thickened. 5. The pulmonic valve is poorly visualized. 6. No significant pericardial effusion noted. DOPPLER INTERROGATION: Doppler interrogation of the aortic, mitral and tricuspid valvular presence of mild mitral and tricuspid regurgitation jet velocity is insufficient for calculation of the right ventricular systolic pressure, grade 1 diastolic dysfunction seen with tissue Doppler evidence of raised left atrial pressure. CONCLUSION: 1. Mildly enlarged left atrium, normal left ventricular size, mild concentric left ventricular hypertrophy, visually estimated ejection fraction 50% with no obvious regional wall motion abnormality, grade 1 diastolic dysfunction seen with tissue Doppler evidence of raised left atrial pressure. 2. Mild mitral and tricuspid regurgitation 3. No significant pericardial effusion noted.
== END ==
PROVIDERS: PCP Family Medicine; Visit Provider Internal Medicine Cardiovascular Disease
DX: R06.02 Shortness of breath (principal); I25.10 Atherosclerotic heart disease of native coronary artery without angina pectoris; I50.9 Heart failure, unspecified; I10 Essential (primary) hypertension; Z95.810 Presence of automatic (implantable) cardiac defibrillator
CPT/HCPCS: 36415; 80048; 93306

== ENCOUNTER 2017-04-11 11:41 | Emergency (ER) | payer MEDICARE, BC, SELFPAY ==
[2017-04-11 11:51] VITALS: BP 130/58; PULSE 78; RESP 22; TEMP 36.6; O2SAT 95; BMI 30.4
[2017-04-11 13:10] VITALS: BP 129/73; PULSE 71; RESP 18; TEMP 36.6; O2SAT 94
[2017-04-11 14:05] LABS: Basophils % 0.3 % (0.1-2.0); Eosinophils # 0.1 K/mm3 (0.0-0.4); Eosinophils % 1.6 % (0.1-12.0); Hemoglobin 11.6 g/dL (12.2-16.2); Lymphocytes # 1.5 K/mm3 (0.7-4.5); Lymphocytes % 20.9 K/mm3 (10-50); Mean Corpuscular Hemoglobin 30.2 pg (27.0-31.2); Mean Corpuscular Volume 91.2 fl (81-99); Mean Platelet Volume 7.5 fl (7.4-10.4); Monocytes # 0.3 K/mm3 (0.1-1.0); Monocytes % 4.6 % (1.7-9.3); Neutrophils # 5.3 K/mm3 (1.8-7.8); Neutrophils % 72.7 % (37.0-80.0); Platelet Count 242 K/mm3 (142-424); Red Blood Count 3.84 M/mm3 (4.20-5.40); Red Cell Distribution Width 14.8 % (11.5-17.5); White Blood Count 7.3 K/mm3 (4.8-10.8)
[2017-04-11 14:29] LABS: Alanine Aminotransferase 22 U/L (12-78); Albumin Level 2.8 gm/dL (3.4-5.0); Anion Gap 12.1 mEq/L (5-15); Aspartate Amino Transferase 23 U/L (15-37); Bilirubin,Total 0.2 mg/dL (0.2-1.0); Blood Urea Nitrogen 13 mg/dL (7-18); Calcium 8.2 mg/dL (8.5-10.1); Carbon Dioxide 30 mmol/L (21.0-32.0); Chloride 103 mmol/L (98-107); Creatinine Clearance Estimated 54 mL/min (0-300); Creatinine,Serum 0.79 mg/dL (0.55-1.02); Estimated Glomerular Filt Rate 71 ml/min (>60); GFR (African American) 86 ML/MIN (>60); Globulin 3.9 gm/dl (1.3-3.2); Glucose 113 mg/dL (74-106); Potassium 3.1 mmoL/L (3.5-5.1); Sodium 142 mmol/L (136-145); Total Protein,Serum 6.7 gm/dL (6.4-8.2)
[2017-04-11 14:30] LABS: Albumin/Globulin Ratio 0.7 (1.1-1.8); Alkaline Phosphatase 143 U/L (46-116)
--- NOTE | 2017-04-11 14:34 | HMH.EDWEAK ---
ED Disposition Clinical Impression: Peripheral edema Disposition: Home, Self-Care Condition on Discharge: Good Instructions: DI for Peripheral Edema -- Bilateral Additional Instructions: Please continue same medications, you may take an additional Lasix if leg edema/swelling pronounced. Please do not take more than 2 consecutive days of additional Lasix. Follow-up with your family physician within 2-3 days for reevaluation. Return to this emergency room if unable to see PCP and still having medical concerns/problems. Referrals: Heath Rogers MD [Primary Care Provider] - Time of Disposition: 14:56 - Critical Care Critical Care Time: No Attestation: On 04/11/17, the high probability of a clinically significant, sudden or life threatening deterioration of the following system(s) required my full and direct attention, intervention and personal management. The time I documented below is in addition to time spent performing reported procedures but includes the following listed in this critical care notation. Medical Decision Making Vital Signs: 04/11/17 11:51 04/11/17 13:10 Temperature 97.8 F 97.9 F Temperature Source Oral Oral Pulse Rate [Left Radial] 78 71 Respiratory Rate 22 18 Blood Pressure [Right Arm] 130/58 129/73 Blood Pressure Mean [Right Arm] 82 91 Blood Pressure Source [Right Arm] Automatic Cuff Automatic Cuff Blood Pressure Position [Right Arm] Sitting Sitting 02 Sat by Pulse Oximetry 95 94 L Oxygen Delivery Method Room Air Room Air - Lab Data Lab Results 04/11/17 13:37: WBC 7.3, RBC 3.84 L, Hgb 11.6 L, Hct 35.0 L, MCV 91.2, MCH 30.2, MCHC 33.0, RDW 14.8, Plt Count 242, MPV 7.5, Neut % (Auto) 72.7, Lymph % (Auto) 20.9, [place] % (Auto) 4.6, Eos % (Auto) 1.6, Baso % (Auto) 0.3, Neut # (Auto) 5.3, Lymph # (Auto) 1.5, [place] # (Auto) 0.3, Eos # (Auto) 0.1, Baso # (Auto) 0.0 04/11/17 13:37: Sodium 142, Potassium 3.1 L, Chloride 103, Carbon Dioxide 30, Anion Gap 12.1, BUN 13, Creatinine 0.79, Estimated Creat Clear 54, Estimated GFR 71, Est GFR ( Amer) 86, Glucose 113 H, Calcium 8.2 L, Total Bilirubin 0.2, AST 23, ALT 22, Alkaline Phosphatase 143 H, Total Protein 6.7, Albumin 2.8 L, Globulin 3.9 H, Albumin/Globulin Ratio 0.7 L 04/11/17 13:37: B-Natriuretic Peptide 65 Result diagrams: 04/11/17 13:37 04/11/17 13:37 Weakness HPI - General Chief complaint: Weakness Stated complaint: swelling all over Mode of Arrival: Ambulatory Limitations: No Limitations Description of Symptoms (Recalled from ER Triage Doc. by RN): PT REPORTS SWELLING ALL OVER. STATES CAN'T PUT HER SHOES ON. TOOK WATER PILL LAST NIGHT AND NOW IT IS BETTER TODAY. . TRACE EDEMA NOTED TO BILATERAL ANKLES ONLY. - Related Data Home Medications Medication Instructions Recorded Confirmed clopidogrel 75 mg tablet 75 mg PO QDAY 02/17/17 04/11/17 albuterol sulfate HFA 90 2 puff INHALATION Q6H PRN 02/18/17 04/11/17 mcg/actuation aerosol inhaler aspirin 81 mg tablet,delayed 81 mg PO DAILY 02/18/17 04/11/17 release budesonide-formoterol HFA 160 2 puff INHALATION Q12H PRN 02/18/17 04/11/17 mcg-4.5 mcg/actuation aerosol inhaler gabapentin 600 mg tablet 600 mg PO TID 02/18/17 04/11/17 multivitamin tablet 1 tab PO DAILY 02/18/17 04/11/17 nitroglycerin 0.4 mg sublingual 0.4 mg SUBLINGUAL NEEDED PRN 02/18/17 04/11/17 tablet Pantoprazole Sodium [Protonix 40mg 40 mg PO DAILY 02/22/17 04/11/17 tablet] Acetaminophen with Codeine 1 tab PO Q6HP PRN 02/24/17 04/11/17 [Tylenol with Codeine #3 tablet] Escitalopram Oxalate [Lexapro] 20 mg PO DAILY 02/24/17 04/11/17 Furosemide [Lasix 40mg tablet] 40 mg PO BID 02/24/17 04/11/17 Pramipexole Di-HCl [Mirapex] 2 mg PO HS 02/24/17 04/11/17 Metoprolol Succinate 25 mg PO QDAY 04/11/17 04/11/17 Allergies Allergy/AdvReac Type Severity Reaction Status Date / Time No Known Allergies Allergy Verified 04/11/17 12:06 [facility] History Medical History: Report
--- NOTE | 2017-04-11 14:38 | ED_ITS ---
ED Disposition Clinical Impression: Peripheral edema Disposition: Home, Self-Care Condition on Discharge: Good Instructions: DI for Peripheral Edema -- Bilateral Additional Instructions: Please continue same medications, you may take an additional Lasix if leg edema/ swelling pronounced. Please do not take more than 2 consecutive days of additional Lasix. Follow-up with your family physician within 2-3 days for reevaluation. Return to this emergency room if unable to see PCP and still having medical concerns/problems. Referrals: Heath Rogers MD [Primary Care Provider] - Time of Disposition: 14:56 - Critical Care Critical Care Time: No Attestation: On 04/11/17, the high probability of a clinically significant, sudden or life threatening deterioration of the following system(s) required my full and direct attention, intervention and personal management. The time I documented below is in addition to time spent performing reported procedures but includes the following listed in this critical care notation. Medical Decision Making - Medical Records Medical records reviewed: Yes: I reviewed the patient's medical records. Vital Signs: 04/11/17 11:51 04/11/17 13:10 04/11/17 16:33 Temperature 97.8 F 97.9 F 97.9 F Temperature Source Oral Oral Pulse Rate 71 Pulse Rate [Left Radial] 78 71 Respiratory Rate 22 18 18 Blood Pressure 129/73 Blood Pressure [Right Arm] 130/58 129/73 Blood Pressure Mean [Right Arm] 82 91 Blood Pressure Source [Right Arm] Automatic Cuff Automatic Cuff Blood Pressure Position [Right Arm] Sitting Sitting 02 Sat by Pulse Oximetry 95 94 L Oxygen Delivery Method Room Air Room Air Room Air - Lab Data Lab results reviewed: Yes: I reviewed the patient's lab results. Lab Results 04/11/17 13:37: WBC 7.3, RBC 3.84 L, Hgb 11.6 L, Hct 35.0 L, MCV 91.2, MCH 30.2 , MCHC 33.0, RDW 14.8, Plt Count 242, MPV 7.5, Neut % (Auto) 72.7, Lymph % (Auto ) 20.9, [place] % (Auto) 4.6, Eos % (Auto) 1.6, Baso % (Auto) 0.3, Neut # (Auto) 5.3, Lymph # (Auto) 1.5, [place] # (Auto) 0.3, Eos # (Auto) 0.1, Baso # (Auto) 0.0 04/11/17 13:37: Sodium 142, Potassium 3.1 L, Chloride 103, Carbon Dioxide 30, Anion Gap 12.1, BUN 13, Creatinine 0.79, Estimated Creat Clear 54, Estimated GFR 71, Est GFR ( Amer) 86, Glucose 113 H, Calcium 8.2 L, Total Bilirubin 0.2, AST 23, ALT 22, Alkaline Phosphatase 143 H, Total Protein 6.7, Albumin 2.8 L, Globulin 3.9 H, Albumin/Globulin Ratio 0.7 L 04/11/17 13:37: B-Natriuretic Peptide 65 Result diagrams: 04/11/17 13:37 04/11/17 13:37 - ECG Data Tracing #1 I reviewed this ECG and interpreted as documented below: ECG normal with no acute: arrhythmias, ischemia, conduction abnormalities, chamber hypertrophy Normal Sinus Rhythm: Yes - Chuy Inquiry Pt receiving controlled substance: No - Reevaluation(s) Time: 14:30 Reevaluation #1: Patient appears in no acute distress, will send the patient home with instructions to temporarily increase the Lasix, and f/u with PCP for re- evaluation. Weakness HPI - General Chief complaint: Weakness Stated complaint: swelling all over Mode of Arrival: Ambulatory Limitations: No Limitations Description of Symptoms (Recalled from ER Triage Doc. by RN): PT REPORTS SWELLING ALL OVER. STATES CAN'T PUT HER SHOES ON. TOOK WATER PILL LAST NIGHT AND NOW IT IS BETTER TODAY. . TRACE EDEMA NOTED TO BILATERAL ANKLES ONLY. - His
[2017-04-11 16:33] VITALS: BP 129/73; PULSE 71; RESP 18; TEMP 36.6; O2SAT 94
== END 2017-04-11 16:00 | disposition home or self-care (01) ==
PROVIDERS: Emergency Provider Emergency Medicine; PCP Family Medicine
DX: R60.9 Edema, unspecified (principal); I48.91 Unspecified atrial fibrillation; I11.0 Hypertensive heart disease with heart failure; I50.9 Heart failure, unspecified; I25.10 Atherosclerotic heart disease of native coronary artery without angina pectoris; I25.2 Old myocardial infarction; Z95.0 Presence of cardiac pacemaker; Z79.02 Long term (current) use of antithrombotics/antiplatelets; Z79.82 Long term (current) use of aspirin; Z79.51 Long term (current) use of inhaled steroids; Z79.899 Other long term (current) drug therapy; Z87.891 Personal history of nicotine dependence; Z85.828 Personal history of other malignant neoplasm of skin
CPT/HCPCS: 80053; 83880; 85025; 93005; 93041; 99283

== ENCOUNTER 2017-05-06 19:25 | Emergency (ER) | payer MEDICARE, BC, SELFPAY ==
--- NOTE | 2017-05-06 07:21 | XR_ITS ---
XR chest portable HISTORY: ITS.REASON: PALPATATIONS ORDERING PHYSICIAN: Patricio Prasad MD PATIENT AGE: 76 years COMPARISON: 02/24/2017 FINDINGS: Tripolar pacemaker present with biventricular and right atrial leads. Borderline cardiomegaly without failure. Lungs are clear. No acute bony anomalies. IMPRESSION: Borderline cardiomegaly with pacemaker present, no acute finding
[2017-05-06 19:26] VITALS: BP 151/69; PULSE 82; RESP 16; TEMP 36.9; O2SAT 94; BMI 32.6
[2017-05-06 20:01] LABS: Basophils % 0.6 % (0.1-2.0); Eosinophils # 0.2 K/mm3 (0.0-0.4); Eosinophils % 2.2 % (0.1-12.0); Hematocrit 37.3 % (37.0-47.0); Hemoglobin 11.7 g/dL (12.2-16.2); Lymphocytes # 2.1 K/mm3 (0.7-4.5); Mean Corpuscular HGB Conc 31.3 g/dL (31.8-35.4); Mean Corpuscular Hemoglobin 29.3 pg (27.0-31.2); Mean Corpuscular Volume 93.5 fl (81-99); Mean Platelet Volume 7.3 fl (7.4-10.4); Monocytes # 0.5 K/mm3 (0.1-1.0); Monocytes % 5.9 % (1.7-9.3); Neutrophils # 4.8 K/mm3 (1.8-7.8); Neutrophils % 63.2 % (37.0-80.0); Platelet Count 296 K/mm3 (142-424); Red Blood Count 3.99 M/mm3 (4.20-5.40); Red Cell Distribution Width 14.6 % (11.5-17.5); White Blood Count 7.5 K/mm3 (4.8-10.8)
[2017-05-06 20:27] LABS: Alanine Aminotransferase 23 U/L (12-78); Albumin Level 3.1 gm/dL (3.4-5.0); Albumin/Globulin Ratio 0.7 (1.1-1.8); Alkaline Phosphatase 150 U/L (46-116); Anion Gap 11.5 mEq/L (5-15); Aspartate Amino Transferase 24 U/L (15-37); Bilirubin,Total 0.1 mg/dL (0.2-1.0); Blood Urea Nitrogen 14 mg/dL (7-18); CKMB Relative Index 2.1 U/L (0-4.0); Calcium 8.6 mg/dL (8.5-10.1); Carbon Dioxide 28 mmol/L (21.0-32.0); Chloride 104 mmol/L (98-107); Creatine Kinase 118 U/L (26-192); Creatine Kinase MB 2.5 ng/ml (0.0-3.6); Creatinine Clearance Estimated 56 mL/min (0-300); Creatinine,Serum 0.83 mg/dL (0.55-1.02); Estimated Glomerular Filt Rate 67 ml/min (>60); GFR (African American) 81 ML/MIN (>60); Globulin 4.4 gm/dl (1.3-3.2); Glucose 94 mg/dL (74-106); Potassium 3.5 mmoL/L (3.5-5.1); Sodium 140 mmol/L (136-145); Total Protein,Serum 7.5 gm/dL (6.4-8.2); Troponin I < 0.02 ng/ml (0.00-0.06)
--- NOTE | 2017-05-06 20:29 | HMH.EDARPALP ---
ED Disposition Clinical Impression: Palpitations, Pacemaker Disposition: Home, Self-Care Condition on Discharge: Good Additional Instructions: see dr canales tuesday 9 am Referrals: Heath Rogers MD [Primary Care Provider] - - Critical Care Critical Care Time: No Attestation: On 05/06/17, the high probability of a clinically significant, sudden or life threatening deterioration of the following system(s) required my full and direct attention, intervention and personal management. The time I documented below is in addition to time spent performing reported procedures but includes the following listed in this critical care notation. Medical Decision Making - Medical Records Medical records reviewed: Yes: I reviewed the patient's medical records. - Chuy Inquiry Pt receiving controlled substance: No Vital Signs: 05/06/17 19:26 Temperature 98.4 F Temperature Source Oral Pulse Rate [Brachial] 82 Respiratory Rate 16 Blood Pressure [Left Arm] 151/69 Blood Pressure Mean [Left Arm] 96 Blood Pressure Source [Left Arm] Automatic Cuff Blood Pressure Position [Left Arm] Supine 02 Sat by Pulse Oximetry 94 L Oxygen Delivery Method Room Air - Lab Data Lab results reviewed: Yes: I reviewed the patient's lab results. Lab Results 05/06/17 19:50: WBC 7.5, RBC 3.99 L, Hgb 11.7 L, Hct 37.3, MCV 93.5, MCH 29.3, MCHC 31.3 L, RDW 14.6, Plt Count 296, MPV 7.3 L, Neut % (Auto) 63.2, Lymph % (Auto) 28.0, [place] % (Auto) 5.9, Eos % (Auto) 2.2, Baso % (Auto) 0.6, Neut # (Auto) 4.8, Lymph # (Auto) 2.1, [place] # (Auto) 0.5, Eos # (Auto) 0.2, Baso # (Auto) 0.0 05/06/17 19:50: Sodium 140, Potassium 3.5, Chloride 104, Carbon Dioxide 28, Anion Gap 11.5, BUN 14, Creatinine 0.83, Estimated Creat Clear 56, Estimated GFR 67, Est GFR ( Amer) 81, Glucose 94, Calcium 8.6, Total Bilirubin 0.1 L, AST 24, ALT 23, Alkaline Phosphatase 150 H, Total Creatine Kinase 118, CK-MB (CK-2) 2.5 D, CK-MB (CK-2) Rel Index 2.1, Troponin I < 0.02, Total Protein 7.5, Albumin 3.1 L, Globulin 4.4 H, Albumin/Globulin Ratio 0.7 L Result diagrams: 05/06/17 19:50 05/06/17 19:50 Orders (Tests/Meds): ORDERS Category Date Time Status XR chest portable Stat Exams 05/06/17 19:48 Taken 12-lead EKG Request [ECG Request by /Markel] Stat Y 05/06/17 19:47 Ordered - Radiology Data #1 Image(s): Chest Image Reviewed: Yes I reviewed the patient's radiology image Preliminary Findings: Normal/NAD - ECG Data Tracing #1 I reviewed this ECG and interpreted as documented below: Arrhythmias present: other (pacemaker) - Physician Consults Physician Consulted: parker Reason -: Pt condition Arrhythmia/Palpitations HPI - General Chief Complaint: Arrhythmia/Palpitations Stated Complaint: Leads of Pace Maker poped out Time Seen by Provider: 05/06/17 20:30 Mode of Arrival: Ambulatory Source of Information: Patient, Relative, Medical Record Limitations: No Limitations - History of Present Illness HPI narrative: wf with concern about pacemaker wire - she has no chest pain or other c/o MD complaint: palpitations Onset (ago): hour(s) Duration: intermittent Severity: moderate Arrhythmia history: AICD - Related Data Home Medications Medication Instructions Recorded Confirmed clopidogrel 75 mg tablet 75 mg PO QDAY 02/17/17 04/11/17 albuterol sulfate HFA 90 2 puff INHALATION Q6H PRN 02/18/17 04/11/17 mcg/actuation aerosol inhaler aspirin 81 mg tablet,delayed 81 mg PO DAILY 02/18/17 04/11/17 release budesonide-formoterol HFA 160 2 puff INHALATION Q12H PRN 02/18/17 04/11/17 mcg-4.5 mcg/actuation aerosol inhaler gabapentin 600 mg tablet 600 mg PO TID 02/18/17 04/11/17 multivitamin tablet 1 tab PO DAILY 02/18/17 04/11/17 nitroglycerin 0.4 mg sublingual 0.4 mg SUBLINGUAL NEEDED PRN 02/18/17 04/11/17 tablet Pantoprazole Sodium [Protonix 40mg 40 mg PO DAILY 02/22/17 04/11/17 tablet] Acetaminophen with Codeine 1
--- NOTE | 2017-05-06 20:33 | ED_ITS ---
ED Disposition Clinical Impression: Palpitations, Pacemaker Disposition: Home, Self-Care Condition on Discharge: Good Additional Instructions: see dr canales tuesday 9 am Referrals: Heath Rogers MD [Primary Care Provider] - - Critical Care Critical Care Time: No Attestation: On 05/06/17, the high probability of a clinically significant, sudden or life threatening deterioration of the following system(s) required my full and direct attention, intervention and personal management. The time I documented below is in addition to time spent performing reported procedures but includes the following listed in this critical care notation. Medical Decision Making - Medical Records Medical records reviewed: Yes: I reviewed the patient's medical records. - Chuy Inquiry Pt receiving controlled substance: No Vital Signs: 05/06/17 19:26 Temperature 98.4 F Temperature Source Oral Pulse Rate [Brachial] 82 Respiratory Rate 16 Blood Pressure [Left Arm] 151/69 Blood Pressure Mean [Left Arm] 96 Blood Pressure Source [Left Arm] Automatic Cuff Blood Pressure Position [Left Arm] Supine 02 Sat by Pulse Oximetry 94 L Oxygen Delivery Method Room Air - Lab Data Lab results reviewed: Yes: I reviewed the patient's lab results. Lab Results 05/06/17 19:50: WBC 7.5, RBC 3.99 L, Hgb 11.7 L, Hct 37.3, MCV 93.5, MCH 29.3, MCHC 31.3 L, RDW 14.6, Plt Count 296, MPV 7.3 L, Neut % (Auto) 63.2, Lymph % ( Auto) 28.0, [place] % (Auto) 5.9, Eos % (Auto) 2.2, Baso % (Auto) 0.6, Neut # (Auto ) 4.8, Lymph # (Auto) 2.1, [place] # (Auto) 0.5, Eos # (Auto) 0.2, Baso # (Auto) 0.0 05/06/17 19:50: Sodium 140, Potassium 3.5, Chloride 104, Carbon Dioxide 28, Anion Gap 11.5, BUN 14, Creatinine 0.83, Estimated Creat Clear 56, Estimated GFR 67, Est GFR ( Amer) 81, Glucose 94, Calcium 8.6, Total Bilirubin 0.1 L, AST 24, ALT 23, Alkaline Phosphatase 150 H, Total Creatine Kinase 118, CK-MB (CK-2) 2.5 D, CK-MB (CK-2) Rel Index 2.1, Troponin I < 0.02, Total Protein 7.5 , Albumin 3.1 L, Globulin 4.4 H, Albumin/Globulin Ratio 0.7 L Result diagrams: 05/06/17 19:50 05/06/17 19:50 Orders (Tests/Meds): ORDERS Category Date Time Status XR chest portable Stat Exams 05/06/17 19:48 Taken 12-lead EKG Request [ECG Request by /Markel] Stat Y 05/06/17 19:47 Ordered - Radiology Data #1 Image(s): Chest Image Reviewed: Yes I reviewed the patient's radiology image Preliminary Findings: Normal/NAD - ECG Data Tracing #1 I reviewed this ECG and interpreted as documented below: Arrhythmias present: other (pacemaker) - Physician Consults Physician Consulted: parker Reason -: Pt condition Arrhythmia/Palpitations HPI - General Chief Complaint: Arrhythmia/Palpitations Stated Complaint: Leads of Pace Maker poped out Time Seen by Provider: 05/06/17 20:30 Mode of Arrival: Ambulatory Source of Information: Patient, Relative, Medical Record Limitations: No Limitations - History of Present Illness HPI narrative: wf with concern about pacemaker wire - she has no chest pain or other c/o MD complaint: palpitations Onset (ago): hour(s) Duration: intermittent Severity: moderate Arrhythmia history: AICD - Related Data Home Medications Medication Instructions Recorded Confirmed clopidogrel 75 mg tablet 75 mg PO QDAY 02/17/17 04/11/17 a
[2017-05-06 20:54] VITALS: BP 150/60; PULSE 87; RESP 16; TEMP 36.8; O2SAT 98
== END 2017-05-06 20:56 | disposition home or self-care (01) ==
PROVIDERS: Emergency Provider Emergency Medicine; PCP Family Medicine
DX: R00.2 Palpitations (principal); Z95.0 Presence of cardiac pacemaker; I10 Essential (primary) hypertension; I25.10 Atherosclerotic heart disease of native coronary artery without angina pectoris; I48.2 Chronic atrial fibrillation; Z87.891 Personal history of nicotine dependence
CPT/HCPCS: 71045; 80053; 82550; 82553; 84484; 85025; 93005; 99283

== ENCOUNTER → 2017-05-12 13:58 | Outpatient (CLI) | payer MEDICARE, BC, SELFPAY ==
--- NOTE | 2017-05-12 14:01 | CI_ITS ---
Cerebrovascular Exam Indications: 785.9 Bruit. IMPRESSIONS 1. Study suggests 20-49% stenosis involving the left internal carotid artery. 2. Study suggests less than 20% stenosis involving the right internal carotid artery. Carotid duplex study. Complete study and Doppler flow study including spectral analysis, color and gonzales scale imaging. Height: Height: 152.4cm. Height: 60in. Weight: Weight: 73kg. Weight: 160.7lb. Body mass index: BMI: 31.4kg/m^2. Body surface area: BSA: 1.79m^2. Location: Vascular laboratory. Patient status: Outpatient. Tables: Arterial flow: + +--------+--------+ + Location V sys V ed Comment + +--------+--------+ + Right CCA - proximal 119cm/s 27.5cm/s + +--------+--------+ + Right CCA - distal 95.9cm/s 30.6cm/s + +--------+--------+ + Right ECA 128cm/s 24.4cm/s + +--------+--------+ + Right ICA - proximal 91.1cm/s 28.3cm/s + +--------+--------+ + Right ICA - mid 112cm/s 38.5cm/s + +--------+--------+ + Right ICA - distal 117cm/s 33.8cm/s + +--------+--------+ + Right vertebral 73.5cm/s 28.9cm/s + +--------+--------+ + Left CCA - proximal 90.8cm/s 27.5cm/s + +--------+--------+ + Left CCA - distal 89.9cm/s 33.6cm/s + +--------+--------+ + Left ECA 84.4cm/s 20.4cm/s + +--------+--------+ + Left ICA - proximal 77.7cm/s 25.9cm/s + +--------+--------+ + Left ICA - mid 97.8cm/s 32.1cm/s + +--------+--------+ + Left ICA - distal 162cm/s 40.3cm/s Elevated velocities noted at distal leftICA due to tortuousity. + +--------+--------+ + Left vertebral 57.6cm/s 14.4cm/s + +--------+--------+ + Velocity ratios: + + + + Right, V sys Left, V sys + + + + Max ICA/mid CCA 1.2 1.8 + + + + (Report amended ) Electronically signed by: Manuel Muhammad [id number]
== END ==
PROVIDERS: PCP Family Medicine; Visit Provider Internal Medicine
DX: I50.9 Heart failure, unspecified; Z95.810 Presence of automatic (implantable) cardiac defibrillator; I10 Essential (primary) hypertension; R09.89 Other specified symptoms and signs involving the circulatory and respiratory systems; I25.118 Atherosclerotic heart disease of native coronary artery with other forms of angina pectoris; R06.09 Other forms of dyspnea; I67.2 Cerebral atherosclerosis
CPT/HCPCS: 93880

== ENCOUNTER → 2017-05-31 09:52 | Outpatient (CLI) | payer MEDICARE, BC, SELFPAY ==
--- NOTE | 2017-05-31 09:56 | US_ITS ---
US Arterial Ankle Brachial Ind ITS.REASON: PAD, rest pain, claudication, ex-smoker, coronary artery disease ORDERING PHYSICIAN: Sebastián Sawant MD PATIENT AGE: 76 years TECHNIQUE: Segmental pressures obtained of both right and left leg. These are compared to brachial blood pressure to yield index at each level sampled including summary SHILOH. The data sheets from the procedure are available in PACS FINDINGS Rest study only performed today No prior studies available for comparison. Blood pressures reported are in millimeters mercury. RIGHT LEG SHILOH = 1.2. Right TBI is 0.6 Brachial BP: 124 Thigh BP: 132 Calf BP: 131 Ankle PT: 153 Ankle DP : 130 Digit =79 LEFT LEG SHILOH = 1.2 Left TBI is 0.5 Brachial BPD: 124 Thigh BP: 147 Calf BP: 142 Ankle PT:154 Ankle DP: 137 Digit = 62 Pulses and waveforms: Normal IMPRESSION: The ABIs as reported above are within normal limits. Waveforms and pulses are also unremarkable. Low TBI's on both sides indicating small vessel disease
== END ==
PROVIDERS: PCP Family Medicine; Visit Provider Internal Medicine
DX: I73.9 Peripheral vascular disease, unspecified (principal); I25.10 Atherosclerotic heart disease of native coronary artery without angina pectoris; Z95.0 Presence of cardiac pacemaker; R07.9 Chest pain, unspecified; I10 Essential (primary) hypertension
CPT/HCPCS: 93922

== ENCOUNTER → 2017-06-17 14:38 | Outpatient (CLI) | payer MEDICARE, BC, SELFPAY ==
--- NOTE | 2017-06-17 14:48 | XR_ITS ---
XR tibia fibula RT 2V CLINICAL INDICATION: ITS.REASON: RT LEG PAIN ORDERING PHYSICIAN: Heath Rogers MD PATIENT AGE: 76 years FINDINGS: No fracture or dislocation. No lytic or blastic change. There is mild chondrocalcinosis at the knee joint. There is a 8 opacity noted at the medial mid to lower calf. This is seen only on the AP view of questioned clinical significance. IMPRESSION: 1. No acute finding. 2. Small faint opacity in the soft tissues medially and may be due to some dystrophic calcification.
--- NOTE | 2017-06-17 14:48 | XR_ITS ---
XR hand RT min 3V HISTORY: ITS.REASON: RT THUMB PAIN ORDERING PHYSICIAN: Heath Rogers MD PATIENT AGE: 76 years FINDINGS: There are scattered osteoarthritic changes involving the first metacarpal carpal joint, first metacarpophalangeal joint, first interphalangeal joint, second DIP joint, third PIP joint, third DIP joint, fourth and fifth DIP joints. Nonspecific soft tissue small focal areas of calcification are present at the radial aspect of the proximal phalanx of the third digit and the ulnar aspect of the proximal phalanx of the fourth digit. Prominent hypertrophic changes are present at the DIP of the second digit. There is a small lucency involving the base of the first metacarpal laterally and may represent an old avulsion injury. IMPRESSION: 1. Osteoarthritic changes as described above. 2. Possible old avulsion fracture of the base of the first metacarpal
== END ==
PROVIDERS: PCP Family Medicine; Visit Provider Family Medicine
DX: M79.661 Pain in right lower leg (principal); M79.644 Pain in right finger(s)
CPT/HCPCS: 73130; 73590

== ENCOUNTER → 2017-06-27 10:45 | Outpatient (CLI) | payer MEDICARE, BC, SELFPAY ==
[2017-06-27 13:12] LABS: Anion Gap 13.9 mEq/L (5-15); Blood Urea Nitrogen 22 mg/dL (7-18); Carbon Dioxide 28 mmol/L (21.0-32.0); Chloride 102 mmol/L (98-107); Creatinine,Serum 0.97 mg/dL (0.55-1.02); Estimated Glomerular Filt Rate 56 ml/min (>60); GFR (African American) 68 ML/MIN (>60); Glucose 92 mg/dL (74-106); Potassium 3.9 mmoL/L (3.5-5.1); Sodium 140 mmol/L (136-145)
== END ==
PROVIDERS: Visit Provider Internal Medicine
DX: I25.10 Atherosclerotic heart disease of native coronary artery without angina pectoris (principal); I10 Essential (primary) hypertension; I50.9 Heart failure, unspecified; R06.09 Other forms of dyspnea; Z95.810 Presence of automatic (implantable) cardiac defibrillator
CPT/HCPCS: 36415; 80048; 83880

== ENCOUNTER → 2017-07-04 14:41 | Outpatient (POV) | payer BC, MEDICARE, SELFPAY | PROVIDERS: PCP Family Medicine; Visit Provider Physician Assistant | DX: Z00.00 Encounter for general adult medical examination without abnormal findings (principal) ==

== ENCOUNTER → 2017-07-06 10:59 | Outpatient (CLI) | payer MEDICARE, BC, SELFPAY ==
--- NOTE | 2017-07-06 11:01 | XR_ITS ---
XR hip RT 2-3V w/pelvis HISTORY: ITS.REASON: Right Hip Pain ORDERING PHYSICIAN: Haim Diego MD PATIENT AGE: 76 years COMPARISON: None FINDINGS: There are mild osteoarthritic changes. No fracture or dislocation. No lytic or blastic change. Degenerative disc disease present in the lower lumbar spine. 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
== END ==
PROVIDERS: PCP Family Medicine; Visit Provider Orthopaedic Surgery
DX: M25.551 Pain in right hip (principal)
CPT/HCPCS: 73502

== ENCOUNTER → 2017-10-31 10:34 | Outpatient (CLI) | payer MEDICARE, BC, SELFPAY ==
--- NOTE | 2017-10-31 10:39 | XR_ITS ---
XR chest 2V HISTORY: ITS.REASON: dyspnea ORDERING PHYSICIAN: Ann Brown PATIENT AGE: 76 years COMPARISON: 05/06/2017 FINDINGS: The cardiomediastinal silhouette and pulmonary vascularity are within normal limits. Tripolar cardiac pacemaker device present with biventricular and right atrial leads The lungs are clear without infiltrates, suspicious nodules, or pleural effusions. Calcified mediastinal lymph nodes No acute bony abnormalities. IMPRESSION: Cardiac pacemaker present. No change with no acute finding
[2017-10-31 11:10] LABS: Anion Gap 5.3 mEq/L (5-15); Blood Urea Nitrogen 20 mg/dL (7-18); Carbon Dioxide 30 mmol/L (21.0-32.0); Chloride 104 mmol/L (98-107); Creatine Kinase 105 U/L (26-192); Creatinine,Serum 1.06 mg/dL (0.55-1.02); Estimated Glomerular Filt Rate 51 ml/min (>60); GFR (African American) 61 ML/MIN (>60); Glucose 105 mg/dL (74-106); Potassium 3.9 mmoL/L (3.5-5.1); Sodium 139 mmol/L (136-145)
[2017-10-31 11:11] LABS: Calcium 8.4 mg/dL (8.5-10.1)
[2017-10-31 11:22] LABS: CKMB Relative Index 1.5 U/L (0-4.0); Creatine Kinase MB 1.6 ng/ml (0.0-3.6)
[2017-10-31 11:23] LABS: Troponin I < 0.02 ng/ml (0.00-0.06)
== END ==
PROVIDERS: PCP Family Medicine; Visit Provider Urology
DX: R06.09 Other forms of dyspnea; I10 Essential (primary) hypertension; I25.118 Atherosclerotic heart disease of native coronary artery with other forms of angina pectoris; I42.9 Cardiomyopathy, unspecified; I65.23 Occlusion and stenosis of bilateral carotid arteries; R09.89 Other specified symptoms and signs involving the circulatory and respiratory systems; Z95.810 Presence of automatic (implantable) cardiac defibrillator
CPT/HCPCS: 36415; 71046; 80048; 82550; 82553; 83880; 84484

== ENCOUNTER → 2017-12-30 11:26 | Outpatient (CLI) | payer MEDICARE, BC, SELFPAY ==
[2017-12-30 12:27] LABS: Basophils % 0.4 % (0.1-2.0); Eosinophils # 0.1 K/mm3 (0.0-0.4); Eosinophils % 1.1 % (0.1-12.0); Hematocrit 29.6 % (37.0-47.0); Lymphocytes # 1.8 K/mm3 (0.7-4.5); Lymphocytes % 18.9 % (10-50); Mean Corpuscular HGB Conc 30.4 g/dL (31.8-35.4); Mean Corpuscular Hemoglobin 26.2 pg (27.0-31.2); Mean Corpuscular Volume 86.4 fl (81-99); Mean Platelet Volume 7.2 fl (7.4-10.4); Monocytes # 0.4 K/mm3 (0.1-1.0); Monocytes % 4.5 % (1.7-9.3); Neutrophils # 7.1 K/mm3 (1.8-7.8); Neutrophils % 75.1 % (37.0-80.0); Platelet Count 439 K/mm3 (142-424); Red Blood Count 3.43 M/mm3 (4.20-5.40); Red Cell Distribution Width 14.6 % (11.5-17.5); White Blood Count 9.5 K/mm3 (4.8-10.8)
[2017-12-30 12:46] LABS: Anion Gap 15.7 mEq/L (5-15); Blood Urea Nitrogen 24 mg/dL (7-18); Calcium 8.7 mg/dL (8.5-10.1); Carbon Dioxide 25 mmol/L (21.0-32.0); Chloride 104 mmol/L (98-107); Creatinine,Serum 1.04 mg/dL (0.55-1.02); Estimated Glomerular Filt Rate 52 ml/min (>60); GFR (African American) 62 ML/MIN (>60); Glucose 131 mg/dL (74-106); Potassium 3.7 mmoL/L (3.5-5.1); Sodium 141 mmol/L (136-145)
[2017-12-30 12:56] VITALS: BMI 33.0
[2017-12-30 13:19] VITALS: BP 154/72; PULSE 88; RESP 16; TEMP 36.8; O2SAT 97
[2017-12-30 14:55] VITALS: BP 118/59; PULSE 87; RESP 18; O2SAT 97
[2017-12-30 14:56] VITALS: BP 118/59; PULSE 86; RESP 16; O2SAT 96
[2017-12-30 15:00] VITALS: BP 116/59; PULSE 83; RESP 18; O2SAT 95
[2017-12-30 15:05] VITALS: BP 93/50; PULSE 83; RESP 18; O2SAT 95
[2017-12-30 15:10] VITALS: BP 118/53; PULSE 77; RESP 18; O2SAT 90
== END ==
PROVIDERS: Internal Medicine Cardiovascular Disease; PCP Family Medicine; Visit Provider Internal Medicine
DX: I10 Essential (primary) hypertension (principal); I25.10 Atherosclerotic heart disease of native coronary artery without angina pectoris; I42.9 Cardiomyopathy, unspecified; I50.9 Heart failure, unspecified; I65.29 Occlusion and stenosis of unspecified carotid artery; [UNRECOGNIZED DIAGNOSIS CODE]; R06.00 Dyspnea, unspecified; R09.89 Other specified symptoms and signs involving the circulatory and respiratory systems; Z95.810 Presence of automatic (implantable) cardiac defibrillator; R06.09 Other forms of dyspnea; I20.8 Other forms of angina pectoris
CPT/HCPCS: 36415; 80048; 83880; 85025; 99152; C1725; C1769; C1876; J1644

== ENCOUNTER → 2018-01-12 12:49 | Outpatient (CLI) | payer MEDICARE, BC, SELFPAY ==
--- NOTE | 2018-01-12 12:55 | XR_ITS ---
EXAM: XR lumbar spine min 4V HISTORY: ITS.REASON: DEGENERATIVE LUMBAR SPINAL STENOSIS ORDERING PHYSICIAN: Heath Rogers MD PATIENT AGE: 77 years COMPARISON: None FINDINGS: There is mild lower lumbar scoliosis convex left. Multilevel degenerative disc disease is present from L1 to S1. Endplate osteophytes are present. There is straightening of lumbar lordosis. No acute fracture or dislocation.. No lytic or blastic change. IMPRESSION: Moderate to severe degenerative disc disease with levoscoliosis
== END ==
PROVIDERS: PCP Family Medicine; Visit Provider Family Medicine
DX: M48.061 Spinal stenosis, lumbar region without neurogenic claudication (principal)
CPT/HCPCS: 72110

== ENCOUNTER → 2018-01-30 15:34 | Outpatient (POV) | payer MEDICARE, BC, SELFPAY ==
[2018-01-30 15:51] VITALS: BP 105/45; PULSE 102; RESP 18; O2SAT 98
--- NOTE | 2018-01-31 09:00 | HMH.PMCON ---
Assessment and Plan (1) Back pain Current visit: Yes Status: Chronic Category: Medical Code(s): M54.9 - Dorsalgia, unspecified (2) Leg pain Current visit: Yes Status: Chronic Category: Medical Code(s): M79.606 - Pain in leg, unspecified - Assessment and plan all Dx Assessment and Plan for all problems:: We will see the patient back after her CT scan to review it together and make a plan of action. This note was dictated using voice recognition software and may contain errors or omissions HPI - Data of Consult Consult date: 01/30/18 Requesting Physician: Kacie Sexton APRN Primary Care Provider: Heath Rogers MD - Consult Narrative Reason for consult: Back pain History of present illness: Ms. Hinojosa is a 77 year old female resents for consultation in regards to her low back pain. Patient currently rates her pain a 5 out of 10. She states she has numbness in bilateral legs. Patient states that she is tried and failed chiropractic therapy along with massage therapy. Patient has been on gabapentin with no relief. Patient is unable to have an MRI due to her defibrillator. Patient is set up to have a CT scan this month. CC: Kacie Sexton APRN [facility] History I have reviewed the patient's past medical history: Yes Medical History: Reports:: Atrial Fibrillation, Cancer, Congestive Heart Failure, Coronary Artery Disease, Hypertension, Internal Pacemaker, Myocardial Infarction Denies:: Diabetes Mellitus Type 1, Diabetes Mellitus Type 2, MRSA Other Medical History: Reports: Anemia, Cataracts Other Surgeries: Yes: Angiogram, Appendectomy, Cardiac Catheterization, Hysterectomy-Total, Pacemaker, Other ([facility]-2018) Amputation: No Fractures: No - *Social History Smoking Status: Never smoker Tobacco Type: cigarettes Alcohol Intake: never Alcohol Intake Frequency:: holidays/special occasions only Occupational Status: retired Housing: house Household Members: children - Psychiatric History Expresses thoughts of harming self/others: None Suicide Plan Description: No Plan *Family Hx:: Coronary Artery Disease, Heart Attack Review of Systems - Review of Systems ROS General: no recent weight change, no fever, no sleep disturbances Respiratory: no cough, no shortness of air, no recurring pulmonary infections Cardiovascular/Peripheral Vascular: No chest pain, No palpitations, no edema, no shortness of breath. Gastrointestinal: no incontinence, normal bowel movements reported Genitourinary: no incontinence Musculoskeletal: Back pain, leg pain Psychiatric: normal mood/ affect Neurological: [denies weakness in extremities], [denies balance issues] Meds Home Medications Medication Instructions Recorded Confirmed Type clopidogrel 75 mg tablet 75 mg PO QDAY 02/17/17 01/09/18 History albuterol sulfate HFA 90 2 puff INHALATION Q6H PRN 02/18/17 01/09/18 History mcg/actuation aerosol inhaler aspirin 81 mg tablet,delayed 81 mg PO DAILY 02/18/17 01/09/18 History release budesonide-formoterol HFA 160 2 puff INHALATION Q12H PRN 02/18/17 01/09/18 History mcg-4.5 mcg/actuation aerosol inhaler multivitamin tablet 1 tab PO DAILY 02/18/17 01/09/18 History nitroglycerin 0.4 mg sublingual 0.4 mg SUBLINGUAL NEEDED PRN 02/18/17 01/09/18 History tablet Escitalopram Oxalate [Lexapro] 20 mg PO DAILY 02/24/17 01/09/18 History Pramipexole Di-HCl [Mirapex] 2 mg PO HS 02/24/17 01/09/18 History gabapentin 600 mg tablet 600 mg PO TID PRN 05/24/17 01/09/18 History pantoprazole 40 mg tablet,delayed 40 mg PO BID tab 05/24/17 01/09/18 History release Allergies Allergy/AdvReac Type Severity Reaction Status Date / Time No Known Allergies Allergy Verified 01/09/18 11:13 Objective Vital signs: Pulse Resp BP Pulse Ox 102 H 18 105/45 L 98 01/30/18 15:51 01/30/18 15:51 01/30/18 15:51 01/30/18 15:51 Narrative: Physical Exam General: Alert and oriented
== END ==
PROVIDERS: PCP Family Medicine; Visit Provider Clinical Nurse Specialist Family Health
DX: M54.9 Dorsalgia, unspecified (principal); M79.606 Pain in leg, unspecified
CPT/HCPCS: 99202

== ENCOUNTER → 2018-02-20 10:00 | Outpatient (CLI) | payer MEDICARE, BC, SELFPAY ==
--- NOTE | 2018-02-20 10:05 | CT_ITS ---
CT lumbar spine w con INDICATION: . DEGENERATIVE LUMBAR STENOSIS, LBP, [place]..long-standing low back pain. Leg weakness.. CT lumbar following MYELOGRAM ORDERING PHYSICIAN: Heath Rogers MD PATIENT AGE: 77 years COMPARISON: December 2017 lumbar spine series TECHNIQUE: Helical Axial images obtained with axial sagittal and coronal reformats on CT workstation.. Imaging performed subsequent to the lumbar myelogram. Would note a second set of images were added through the lower thoracic spine All CT scans at the facility use one or more dose reduction, viz: automated exposure control, ma/kV adjustment per patient size (including targeted exams where dose is matched to indication, i.e. head), or iterative reconstruction technique. FINDINGS: . Moderate levoscoliosis lower lumbar spine. (Estimated 17 degrees measured from the superior aspect of L3 to the superior aspect of L5 on this supine nonweight-bearing image) Lumbar spondylosis with Multilevel degenerative disc changes and facet arthropathy. Detailed below. L5/S1. Degenerative disc space narrowing. Mild posterior osteophytic ridging. Spurring encroaching upon the neural foramen bilaterally. Also moderate facet hypertrophy most evident to the left. Together the features yield mild to moderate encroachment upon the foramen and lateral recesses. L4/5.. Levoscoliosis at this level yield. Most pronounced disc space narrowing is seen to the right L4/5 disc, with reactive endplate changes about this degenerated narrowed disc space to the right. There is also slight 5 mm leftward of L4 on L5 vertebral as seen on the coronal image. Sagittal images show slight 1.5 mm mm retrolisthesis of L4 on 5 at midline which becomes more evident evident towards left foramen. Diffuse Disc bulge with additional disc bulge perhaps mild protrusion at the right foramen... Moderate Bilateral facet hypertrophy/arthropathy, with ligamentum flavum hypertrophy on the left.-Above features combine to yield mild central canal stenosis and bilateral recess/foraminal stenosis most pronounced to the right L3/4.. Levoscoliosis most pronounced is at this level-associated with prominent disc space narrowing to the right. Reactive endplate changes. Prominent marginal osteophytes extending laterally to the right as seen on coronal view. On sagittal images we again see the mild 2 mm mm retrolisthesis of L3 on L4 which become more pronounced to the to the right and left of midline. Mild diffuse disc bulge with additional disc bulge at the right foramen. Sagittal image 29.. Bilateral facet hypertrophy most evident to the right. Above features combine to yield moderate/generous right foraminal & recess encroachment, on right more so than left. The myelogram image showed cut off on exiting nerve roots most evident at L3/4 L2/3 follow-up L4/5., Right more so than left L2/3.. Moderate degenerative disc space narrowing . Moderate Disc bulge-most evident paracentral & towards foramen..... Also Facet & ligamentum flavum hypertrophy bilaterally narrow spinal canal as well.. Moderate central canal stenosis. Mild to moderate foraminal encroachment bilaterally more evident to the left than right. Also note scant rightward offset of L2 relative to L3 on coronal image. L1/2. . Disc space narrowing is most evident to the left at this level & associated with the mild compensatory dextrocurvature upper L-spine. . Small Mixed central disc bulge/ protrusion. With mild diffuse disc bulge. Mild facet arthropathy left greater than right. Mild foraminal encroachment. T12/L1. Disc intact. Unremarkable. T11/12 disc intact NOTE at the lumbar images were obtained there was subsequent additional imaging performed through the lower T-spine -up to the T7 level to evaluate degenerative changes he
--- NOTE | 2018-02-20 10:06 | IR_ITS ---
IR myelogram spine lumbosacral Ordering Physician: Heath Rogers MD Patient Age: 77 years: Female HISTORY: ITS.REASON: DEGENERATIVE PSINAL STENOSIS, LBP. Leg weakness and pain TECHNIQUE/PROCEDURE/FINDINGS Patient was brought to the fluoroscopy suite in place in supine position with patella beneath her belly. Following sterile preparation and local skin anesthesia. Under fluoroscopy and after having reviewed previous lumbar spine series from December- the lumbar puncture was performed at the L2/3 level without difficulty. The patient does have prominent degenerative changes in the spine with levoscoliosis. The patient had been off and on aspirin/ Plavix and there was a did note obvious surprisingly prominent ooze &/ focal minimal bleeding from the small Xylocaine needle administration. However fortunately lumbar puncture was atraumatic. Only very subtle scant blood-tinged CSF which cleared with subsequent tubesCSF was obtained and sent for routine progression lab. & available in the lab if other test need be performed. 15 mL Isovue 200 instilled slowly into the thecal sac outlining the thecal sac. Oblique views were performed on after removing the needle. We do see the levoscoliosis. There is diminished filling and rotated cut off of nerve roots slightly bilaterally at L2/3 & L3/4 , & less evident at L4/5 bilateral. Up most evident to the right reflecting along the inner curvature of the levoscoliosis. These Details are discussed and reported in the CT lumbar post myelogram report. . There is also some slight indentation upon the thecal sac the left and right L1/2 also observed. The lateral view of the lumbar spine postmyelogram retrolisthesis at L4/5 and L3/4/[address] report[address] The lateral view does show the mild indentation upon the thecal sac at several levels but most notable L4/5 & L3/4 and L2/3 and less evident at L1/2. Patient tolerated this procedure very well with very little discomfort. IMPRESSION 1. Lumbar puncture at the L2/3 level with successful lumbar myelogram. Details in text. Multilevel degenerative disc changes and spondylosis. . C Subsequent CT with detailed report This myelogram demonstrates the Levoscoliosis most evident at. L3/4 L4/5.-& The Subtle degenerative retrolisthesis at these levels noted on lateral view . Mild to moderate disc bulge indents the thecal sac at L2/3, L3/4 L4/5 and to lesser degree L1/2. . Less filling, & slight cut off exiting nerve roots sleeve (right more so than left) most evident at L2/3, L3/4 & less less evident L4/5
[2018-02-20 11:32] LABS: Glucose,CSF 63 mg/dL (40-70); Total Protein,CSF 42.1 mg/dL (15-45)
[2018-02-20 12:50] LABS: Appearance,CSF Clear (Clear); Red Blood Cell,CSF 5 cells/uL (0); Volume,CSF 3 mL; White Blood Cell,CSF 1 cells/uL (0-5)
[2018-02-20 12:52] LABS: Polynuclear WBCs,CSF 100 %
[2018-02-20 14:21] LABS: Mononuclear WBCs,CSF 0 %
== END ==
PROVIDERS: Radiology Diagnostic Radiology; PCP Family Medicine; Visit Provider Family Medicine
DX: M54.5 Low back pain (principal); M48.061 Spinal stenosis, lumbar region without neurogenic claudication
CPT/HCPCS: 62304; 72132; 82945; 84155; 89051; Q9966

== ENCOUNTER → 2018-02-27 15:08 | Outpatient (POV) | payer MEDICARE, BC, SELFPAY ==
[2018-02-27 15:15] VITALS: BP 143/54; PULSE 103; RESP 18; O2SAT 98; BMI 33.0
--- NOTE | 2018-02-28 08:23 | HMH.PAINSOAP ---
[facility] Pain Management SOAP Note Subjective:: Patient is a pleasant 77-year-old white female who presents today for follow-up after her recent CT. Patient does have lumbar spondylosis with multilevel degenerative disc disease, facet arthropathy along with spinal stenosis. Patient states most of her pain is when she is standing and walking. Patient has weakness in her legs at this time. Patient states that her pain is relieved by leaning forward. Patient and I had a long discussion in regards to the mild procedure. Patient may be interested in this in the future. However I also discussed starting with epidural injections that she is interested in this as well. Patient is on Plavix we will get her spreader box operator to give us permission to have her come off of it. Prior to the injection. Patient is continuing a home stretching program. Patient is on anti-inflammatories. ROS General: no recent weight change, no fever, no sleep disturbances Respiratory: no cough, no shortness of air, no recurring pulmonary infections Cardiovascular/Peripheral Vascular: No chest pain, No palpitations, no edema, no shortness of breath. Gastrointestinal: no incontinence, normal bowel movements reported Genitourinary: no incontinence Musculoskeletal: Back pain, leg pain Psychiatric: normal mood/ affect Neurological: Weakness in bilateral lower extremities with standing, [denies balance issues] Objective:: Physical Exam General: Alert and oriented x3, no acute distress, pleasant and cooperative, [on room air] Lungs: Resps E/U, Symmetrical chest expansion, Eyes: PERRL Musculoskeletal: Flexion and extension of lumbar spine somewhat guarded secondary to pain, deep tendon reflexes normal, strength in upper and lower extremities [5/5], [abnormal gait noted] Neurological: speech clear, business process specialist equal, no gross sensory deficits Assessment:: Degenerative disc disease lumbar spine with lumbar radiculopathy and lumbar spinal stenosis with neurogenic claudication Plan:: We will set up an L4-L5 lumbar epidural steroid injection to see if this is beneficial for her. If it is not I do believe she may be a candidate for the mild procedure. We will have her come off of her Plavix prior to her injection. This note was dictated using voice recognition software and may contain errors or omissions
--- NOTE | 2018-02-28 08:26 | P.CONS_ITS ---
[facility] Pain Management SOAP Note Subjective:: Patient is a pleasant 77-year-old white female who presents today for follow-up after her recent CT. Patient does have lumbar spondylosis with multilevel degenerative disc disease, facet arthropathy along with spinal stenosis. Patient states most of her pain is when she is standing and walking. Patient has weakness in her legs at this time. Patient states that her pain is relieved by leaning forward. Patient and I had a long discussion in regards to the mild procedure. Patient may be interested in this in the future. However I also discussed starting with epidural injections that she is interested in this as well. Patient is on Plavix we will get her mortuary beautician to give us permission to have her come off of it. Prior to the injection. Patient is continuing a home stretching program. Patient is on anti-inflammatories. ROS General: no recent weight change, no fever, no sleep disturbances Respiratory: no cough, no shortness of air, no recurring pulmonary infections Cardiovascular/Peripheral Vascular: No chest pain, No palpitations, no edema, no shortness of breath. Gastrointestinal: no incontinence, normal bowel movements reported Genitourinary: no incontinence Musculoskeletal: Back pain, leg pain Psychiatric: normal mood/ affect Neurological: Weakness in bilateral lower extremities with standing, [denies balance issues] Objective:: Physical Exam General: Alert and oriented x3, no acute distress, pleasant and cooperative, [on room air] Lungs: Resps E/U, Symmetrical chest expansion, Eyes: PERRL Musculoskeletal: Flexion and extension of lumbar spine somewhat guarded secondary to pain, deep tendon reflexes normal, strength in upper and lower extremities [5/5], [abnormal gait noted] Neurological: speech clear, air analysis technician equal, no gross sensory deficits Assessment:: Degenerative disc disease lumbar spine with lumbar radiculopathy and lumbar spinal stenosis with neurogenic claudication Plan:: We will set up an L4-L5 lumbar epidural steroid injection to see if this is beneficial for her. If it is not I do believe she may be a candidate for the mild procedure. We will have her come off of her Plavix prior to her injection. This note was dictated using voice recognition software and may contain errors or omissions
--- NOTE | 2018-03-03 13:28 | PC.NURSE ---
SPOKE WITH KAILA IN CARDIOLOGY OFFICE R/T PT APPROVAL TO DISCONTINUE PLAVIX 7 DAYS PRIOR TO INJECTION. PT IS SCHEDULED FOR A POTENTIAL HEART CATH. WILL NOTIFY US WHEN PT IS CLEARED FROM CARDIOLOGY STANDPOINT.
== END ==
PROVIDERS: PCP Family Medicine; Visit Provider Clinical Nurse Specialist Family Health
DX: M51.16 Intervertebral disc disorders with radiculopathy, lumbar region (principal); M48.062 Spinal stenosis, lumbar region with neurogenic claudication
CPT/HCPCS: 99213

== ENCOUNTER → 2018-02-28 10:30 | Outpatient (CLI) | payer MEDICARE, BC, SELFPAY ==
[2018-02-28 10:41] LABS: Anion Gap 12.3 mEq/L (5-15); Blood Urea Nitrogen 14 mg/dL (7-18); Calcium 8.6 mg/dL (8.5-10.1); Carbon Dioxide 30 mmol/L (21.0-32.0); Chloride 103 mmol/L (98-107); Creatinine,Serum 0.92 mg/dL (0.55-1.02); Estimated Glomerular Filt Rate 59 ml/min (>60); GFR (African American) 72 ML/MIN (>60); Glucose 113 mg/dL (74-106); Potassium 3.3 mmoL/L (3.5-5.1); Sodium 142 mmol/L (136-145)
== END ==
LOC: LAB.DROPOF 10:31 → LAB 10:44 → LAB.DROPOF 03-02 14:54 → LAB 03-02 14:54
PROVIDERS: Visit Provider Internal Medicine
DX: E78.5 Hyperlipidemia, unspecified (principal); I25.10 Atherosclerotic heart disease of native coronary artery without angina pectoris; I50.9 Heart failure, unspecified; I65.29 Occlusion and stenosis of unspecified carotid artery; Z95.810 Presence of automatic (implantable) cardiac defibrillator
CPT/HCPCS: 36415; 80048

== ENCOUNTER → 2018-05-08 09:50 | Outpatient (POV) | payer MEDICARE, BC, SELFPAY ==
--- NOTE | 2018-05-08 10:04 | HMH.PAINSOAP ---
[facility] Pain Management SOAP Note Subjective:: Patient is a pleasant 77-year-old white female who presents today for follow-up after mild procedure. Patient rates her pain 8 out of 10 states that it is going down her legs. Patient is uninterested in intrathecal pain pump. Patient area has healed well. ROS General: no recent weight change, no fever, no sleep disturbances Respiratory: no cough, no shortness of air, no recurring pulmonary infections Cardiovascular/Peripheral Vascular: No chest pain, No palpitations, no edema, no shortness of breath. Gastrointestinal: no incontinence, normal bowel movements reported Genitourinary: no incontinence Musculoskeletal: Back pain, right leg pain Psychiatric: normal mood/ affect Neurological: [denies weakness in extremities], [denies balance issues] Objective:: Physical Exam General: Alert and oriented x3, no acute distress, pleasant and cooperative, [on room air] Lungs: Resps E/U, Symmetrical chest expansion, Eyes: PERRL Musculoskeletal: Flexion and extension of lumbar spine somewhat guarded secondary to pain, deep tendon reflexes normal, strength in upper and lower extremities [5/5], [abnormal gait noted] Neurological: speech clear, boat carpenter mechanic equal, no gross sensory deficits Assessment:: Spinal stenosis with neurogenic claudication, degenerative disc disease Plan:: We will give her a small dose of steroids along with some gabapentin 300 mg 1 p.o. at nighttime. I will see her back in 1 week and reassess her symptoms at that time if she is not better I do believe that she would be a good intrathecal pain pump candidate we will discuss this further. Dr. Martinez has reviewed this note and agrees with this plan of care. This note was dictated using voice recognition software and may contain errors or omissions
--- NOTE | 2018-05-08 10:07 | P.CONS_ITS ---
[facility] Pain Management SOAP Note Subjective:: Patient is a pleasant 77-year-old white female who presents today for follow-up after mild procedure. Patient rates her pain 8 out of 10 states that it is going down her legs. Patient is uninterested in intrathecal pain pump. Patient area has healed well. ROS General: no recent weight change, no fever, no sleep disturbances Respiratory: no cough, no shortness of air, no recurring pulmonary infections Cardiovascular/Peripheral Vascular: No chest pain, No palpitations, no edema, no shortness of breath. Gastrointestinal: no incontinence, normal bowel movements reported Genitourinary: no incontinence Musculoskeletal: Back pain, right leg pain Psychiatric: normal mood/ affect Neurological: [denies weakness in extremities], [denies balance issues] Objective:: Physical Exam General: Alert and oriented x3, no acute distress, pleasant and cooperative, [on room air] Lungs: Resps E/U, Symmetrical chest expansion, Eyes: PERRL Musculoskeletal: Flexion and extension of lumbar spine somewhat guarded secondary to pain, deep tendon reflexes normal, strength in upper and lower extremities [5/5], [abnormal gait noted] Neurological: speech clear, online project manager equal, no gross sensory deficits Assessment:: Spinal stenosis with neurogenic claudication, degenerative disc disease Plan:: We will give her a small dose of steroids along with some gabapentin 300 mg 1 p.o. at nighttime. I will see her back in 1 week and reassess her symptoms at that time if she is not better I do believe that she would be a good intrathecal pain pump candidate we will discuss this further. Dr. Martinez has reviewed this note and agrees with this plan of care. This note was dictated using voice recognition software and may contain errors or omissions
[2018-05-08 10:34] VITALS: BP 132/57; PULSE 87; RESP 18; O2SAT 98; BMI 32.0
== END ==
PROVIDERS: PCP Family Medicine; Visit Provider Clinical Nurse Specialist Family Health
DX: M48.062 Spinal stenosis, lumbar region with neurogenic claudication (principal)
CPT/HCPCS: 99213

== ENCOUNTER → 2018-05-15 11:35 | Outpatient (POV) | payer MEDICARE, BC, SELFPAY ==
[2018-05-15 11:50] VITALS: BP 114/48; PULSE 87; RESP 18; O2SAT 98; BMI 49.8
--- NOTE | 2018-05-15 12:25 | HMH.PAINSOAP ---
[facility] Pain Management SOAP Note Subjective:: Is a pleasant 77-year-old white female who presents today for follow-up. Patient rates her pain a 9 out of 10. Patient had a mild procedure however she has not had much success with it. Patient and I had a long discussion in regards to intrathecal therapy. She would like to pursue this. The patient's pain is in her low back and legs. ROS General: no recent weight change, no fever, no sleep disturbances Respiratory: no cough, no shortness of air, no recurring pulmonary infections Cardiovascular/Peripheral Vascular: No chest pain, No palpitations, no edema, no shortness of breath. Gastrointestinal: no incontinence, normal bowel movements reported Genitourinary: no incontinence Musculoskeletal: Back pain, right leg pain Psychiatric: normal mood/ affect Neurological: [denies weakness in extremities], [denies balance issues] Objective:: Physical Exam General: Alert and oriented x3, no acute distress, pleasant and cooperative, [on room air] Lungs: Resps E/U, Symmetrical chest expansion, Eyes: PERRL Musculoskeletal: Flexion and extension of lumbar spine somewhat guarded secondary to pain, deep tendon reflexes normal, strength in upper and lower extremities [5/5], [abnormal gait noted] Neurological: speech clear, breakfast supervisor equal, no gross sensory deficits Assessment:: Spinal stenosis with neurogenic claudication and degenerative disc disease Plan:: We will set the patient up for an intrathecal pain pump trial. Patient and I had a long discussion in regards to this. She understands she needs to be off her Plavix 7 days prior. We do have permission for her this. Patient will go to her psychological evaluation if the trial is successful. Dr. Martinez has reviewed this note and agrees with this plan of care. This note was dictated using voice recognition software and may contain errors or omissions
--- NOTE | 2018-05-15 12:29 | P.CONS_ITS ---
[facility] Pain Management SOAP Note Subjective:: Is a pleasant 77-year-old white female who presents today for follow-up. Patient rates her pain a 9 out of 10. Patient had a mild procedure however she has not had much success with it. Patient and I had a long discussion in regards to intrathecal therapy. She would like to pursue this. The patient's pain is in her low back and legs. ROS General: no recent weight change, no fever, no sleep disturbances Respiratory: no cough, no shortness of air, no recurring pulmonary infections Cardiovascular/Peripheral Vascular: No chest pain, No palpitations, no edema, no shortness of breath. Gastrointestinal: no incontinence, normal bowel movements reported Genitourinary: no incontinence Musculoskeletal: Back pain, right leg pain Psychiatric: normal mood/ affect Neurological: [denies weakness in extremities], [denies balance issues] Objective:: Physical Exam General: Alert and oriented x3, no acute distress, pleasant and cooperative, [on room air] Lungs: Resps E/U, Symmetrical chest expansion, Eyes: PERRL Musculoskeletal: Flexion and extension of lumbar spine somewhat guarded secondary to pain, deep tendon reflexes normal, strength in upper and lower extremities [5/5], [abnormal gait noted] Neurological: speech clear, boiler operator helper equal, no gross sensory deficits Assessment:: Spinal stenosis with neurogenic claudication and degenerative disc disease Plan:: We will set the patient up for an intrathecal pain pump trial. Patient and I had a long discussion in regards to this. She understands she needs to be off her Plavix 7 days prior. We do have permission for her this. Patient will go t o her psychological evaluation if the trial is successful. Dr. Martinez has reviewed this note and agrees with this plan of care. This note was dictated using voice recognition software and may contain errors or omissions
== END ==
PROVIDERS: PCP Family Medicine; Visit Provider Clinical Nurse Specialist Family Health
DX: M48.062 Spinal stenosis, lumbar region with neurogenic claudication (principal)
CPT/HCPCS: 99212

== ENCOUNTER 2018-05-21 14:35 | Observation (INO) ==
--- NOTE | 2018-05-21 14:41 | Emergency Department Note ---
ED Disposition Clinical Impression: Chest pain in adult, Hypokalemia Disposition: Admitted as Observation Condition on Discharge: Good - Critical Care Critical Care Time: No Attestation: On , the high probability of a clinically significant, sudden or life threatening deterioration of the following system(s) required my full and direct attention, intervention and personal management. The time I documented below is in addition to time spent performing reported procedures but includes the following listed in this critical care notation. Medical Decision Making - Medical Records Medical records reviewed: Yes: I reviewed the patient's medical records. - Chuy Inquiry Pt receiving controlled substance: No Vital Signs: 05/21/18 14:36 05/21/18 15:32 05/21/18 15:57 Temperature 100.1 F H 98.0 F Temperature Source Oral Oral Pulse Rate [Left Radial] 86 76 75 Respiratory Rate 22 18 17 Blood Pressure [Right Arm] 163/57 H 119/54 L 117/55 L Blood Pressure Mean [Right Arm] 92 75 75 Blood Pressure Source [Right Arm] Automatic Cuff Automatic Cuff Automatic Cuff Blood Pressure Position [Right Arm] Sitting Sitting Sitting 02 Sat by Pulse Oximetry 99 98 100 Oxygen Delivery Method Nasal Cannula Room Air Oxygen Flow Rate (LPM) 2 - Lab Data Lab results reviewed: Yes: I reviewed the patient's lab results. Lab Results 05/21/18 14:37: Urine Color Yellow, Urine Appearance Clear, Urine pH 6.0, Ur S pecific [place] <= 1.005, Urine Protein Negative, Urine Glucose (UA) Negative, Urine Ketones Negative, Urine Blood Negative, Urine Nitrate Negative, Urine Bilirubin Negative, Urine Urobilinogen 0.2, Ur Leukocyte Esterase Negative, Urine WBC Occasional, Ur Squamous Epith Cells 3-5, Urine Bacteria Trace 05/21/18 14:42: WBC 9.6, RBC 3.51 L, Hgb 10.0 L, Hct 30.7 L, MCV 87.5, MCH 28.5, MCHC 32.6, RDW 17.0, Plt Count 358, MPV 7.1 L, Neut % (Auto) 83.7 H, Lymph % (Auto) 12.0, [place] % (Auto) 3.3, Eos % (Auto) 0.7, Baso % (Auto) 0.3, Neut # (Auto) 8.0 H, Lymph # (Auto) 1.1, [place] # (Auto) 0.3, Eos # (Auto) 0.1, Baso # (Auto) 0.0 05/21/18 14:42: Sodium 143, Potassium 2.6 L*, Chloride 100, Carbon Dioxide 32, Anion Gap 13.6, BUN 11, Creatinine 0.83, Estimated Creat Clear 57, Estimated GFR 67, Est GFR ( Amer) 81, Glucose 102, Calcium 8.7, Total Bilirubin 0.3, AST 21, ALT 22, Alkaline Phosphatase 141 H, Troponin I < 0.02, Total Protein 7.4, Albumin 2.9 L, Globulin 4.5 H, Albumin/Globulin Ratio 0.6 L 05/21/18 14:42: Lactate 2.3 H 05/21/18 14:42: B-Natriuretic Peptide 40 Result diagrams: 05/21/18 14:42 05/21/18 14:42 Orders (Tests/Meds): ED MEDICATIONS Generic Name Dose Route Start Last Admin Trade Name Freq PRN Reason Stop Dose Admin Potassium Chloride/Sodium Chloride 1,000 mls @ 75 mls/hr 05/21/18 15:45 05/21/18 15:46 Kcl 20 Meq In Ns 1,000 Ml Iv Soln IV 06/20/18 15:44 75 mls/hr .[id number] SANTHOSH Administration Potassium Chloride 40 meq 05/21/18 16:13 Klor-Con 20meq Tablet PO 05/21/18 16:14 ONCE ONE Discontinued Medications Generic Name Dose Route Start Last Admin Trade Name Freq PRN Reason Stop Dose Admin Acetaminophen 1,000 mg 05/21/18 14:37 05/21/18 14:54 Tylenol 500mg Tablet PO 05/21/18 14:38 1,000 mg ONCE ONE Administration Aspirin 243 mg 05/21/18 14:56 05/21/18 14:57 Aspirin 81mg Chewable Tablet PO 05/21/18 14:57 243 mg ONCE ONE Administration ORDERS Category Date Time Status XR chest portable Stat Exams 05/21/18 14:36 Taken Influenza A&B Antigens, Rapid [Rapid Influenza A&B Lab 05/21/18 15:33 Ordered Antigens] Stat Blood Culture Stat Micro 05/21/18 14:37 Received ECG Request by /Markel Stat Y 05/21/18 14:37 Ordered - Radiology Data #1 Image Reviewed: Yes I reviewed the patient's radiology image - ECG Data Tracing #1 I reviewed this ECG and interpreted as documented below: Normal Sinus Rhythm: No (v paced 88) Medical Decision Narrative: admit and treatment d/w Dr Rogers General Adult HPI - General Stated complaint: chest pain Time Seen by Provider: 05/21/18 14:38 Mode of Arrival: EMS Source of Information: Patient, EMS Limitations: No Limitations - History of Present Illness HPI narrative: mild to mod anterior chest pain tight today relieved by 2 SL Ntg, pt took an aspirin today, chest pain gone now, hx 4 cardiac stents and pacer - Related Data Home Medications Medication Instructions Recorded Confirmed clopidogrel 75 mg tablet 75 mg PO QDAY 02/17/17 05/21/18 albuterol sulfate HFA 90 2 puff INHALATION Q6H PRN 02/18/17 05/21/18 mcg/actuation aerosol inhaler aspirin 81 mg tablet,delayed 81 mg PO DAILY 02/18/17 05/21/18 release budesonide-formoterol HFA 160 2 puff INHALATION Q12H PRN 02/18/17 05/21/18 mcg-4.5 mcg/actuation aerosol inhaler multivitamin tablet 1 tab PO DAILY 02/18/17 05/21/18 nitroglycerin 0.4 mg sublingual 0.4 mg SUBLINGUAL NEEDED PRN 02/18/17 05/21/18 tablet Escitalopram Oxalate [Lexapro] 20 mg PO DAILY 02/24/17 05/21/18 Pramipexole Di-HCl [Mirapex] 2 mg PO HS 02/24/17 05/21/18 pantoprazole 40 mg tablet,delayed 40 mg PO BID tab 05/24/17 05/21/18 release Losartan Potassium [Cozaar] 50 mg PO DAILY 04/20/18 05/21/18 Atorvastatin Calcium [Atorvastatin 40 mg PO DAILY 05/21/18 05/21/18 40mg Tab] Biotin 10,000 mcg PO DAILY 05/21/18 05/21/18 Gabapentin [Gabapentin 300mg Cap] 300 mg PO HS 05/21/18 05/21/18 Metoprolol Succinate 25 mg PO DAILY 05/21/18 05/21/18 Metoprolol Succinate [Kapspargo 100 mg PO DAILY 05/21/18 05/21/18 Sprinkle] Previous Rx's Medication Instructions Recorded furosemide 40 mg tablet 40 mg PO TID #90 tab 05/03/18 Allergies Allergy/AdvReac Type Severity Reaction Status Date / Time No Known Allergies Allergy Verified 04/21/18 11:01 [facility] History - Hepatitis A Screen Attestation statement:: This patient has been screened for Hepatitis A risk factors. Medical History: Reports:: Atrial Fibrillation, Congestive Heart Failure, Coronary Artery Disease, Hypertension, Internal Pacemaker, Myocardial Infarction Denies:: Cancer, Diabetes Mellitus Type 1, Diabetes Mellitus Type 2, MRSA, Seizures Other Medical History: Reports: Anemia, Cataracts. Denies: Blood Transfusion Reaction Other Surgeries: Yes: Angiogram, Appendectomy, Cardiac Catheterization, Hysterectomy-Total, Pacemaker, Other ([facility]-2018) Amputation: No Fractures: No - Social History Smoking Status: Current every day smoker Tobacco Type: cigarettes # Packs/Day (cigarettes): 1 Alcohol Intake: never Alcohol Intake Frequency:: holidays/special occasions only Occupational Status: retired Housing: house Household Members: children Family Hx:: Coronary Artery Disease, Heart Attack ROS Obtained: Yes Systems reviewed as appropriate & no additional complaints - Constitutional Constitutional: Reports fever(s) - Eyes Eyes: Denies change in vision - ENT Ears, Nose, Mouth, and Throat: Denies sore throat - Cardiovascular Cardiovascular: Reports chest pain - Respiratory Respiratory: Yes cough, Yes dyspnea - Gastrointestinal Gastrointestingal: Denies: abdominal pain - Musculoskeletal Musculoskeletal: Reports muscle aches - Integumentary/Breasts Skin/Breast: Denies rash - Neurologic Neurologic: Denies dizziness, Denies focal weakness Physical Exam - General General appearance: alert, in no apparent distress - Head Head exam: atraumatic - Eye Eye exam: Present: normal appearance - ENT ENT exam: Present: normal oropharynx, mucous membranes moist - Neck Neck exam: Present: normal inspection - Chest Chest inspection: Present: normal inspection - Respiratory Respiratory exam: Present: normal lung sounds bilaterally - Cardiovascular Cardiovascular exam: Present: regular rate, normal rhythm - Abdominal Exam Abdominal exam: Present: soft. Absent: tenderness - Extremities Exam Extremities exam: Present: full ROM - Back Exam Back exam: Absent: vertebral tenderness - Neurological Exam Neurological exam: Present: alert, oriented X3 - Psychiatric Psychiatric exam: Present: normal affect, normal mood - Skin Skin exam: Present: warm, dry
[2018-05-21 14:53] LABS: Microscopic, Urine URINE MICROSCOPIC (MICROSCOPIC)
[2018-05-21 14:54] LABS: Appearance,Urine CLEAR (Clear); Bilirubin,Urine Negative (Negative); Blood, Urine Negative (Negative); Color,Urine YELLOW (Yellow); Glucose,Urine (UA) Negative (Negative); Ketones,Urine Negative (Negative); Leukocyte Esterase,Urine Negative (Negative); Protein,Urine Negative (Negative); Specific Gravity, Urine <= 1.005 (1.005-1.030); Urobilinogen,Urine 0.2 EU/dl (0.2)
[2018-05-21 14:59] LABS: Basophils % 0.3 % (0.1-2.0); Eosinophils # 0.1 K/mm3 (0.0-0.4); Eosinophils % 0.7 % (0.1-12.0); Hematocrit 30.7 % (37.0-47.0); Lymphocytes # 1.1 K/mm3 (0.7-4.5); Mean Corpuscular HGB Conc 32.6 g/dL (31.8-35.4); Mean Corpuscular Hemoglobin 28.5 pg (27.0-31.2); Mean Corpuscular Volume 87.5 fl (81-99); Mean Platelet Volume 7.1 fl (7.4-10.4); Monocytes # 0.3 K/mm3 (0.1-1.0); Monocytes % 3.3 % (1.7-9.3); Neutrophils % 83.7 % (37.0-80.0); Platelet Count 358 K/mm3 (142-424); Red Blood Count 3.51 M/mm3 (4.20-5.40); White Blood Count 9.6 K/mm3 (4.8-10.8)
[2018-05-21 15:09] LABS: Bacteria,Urine Trace /lpf; WBC,Urine Occasional #/hpf (0-3)
[2018-05-21 15:12] LABS: Alanine Aminotransferase 22 U/L (12-78); Albumin Level 2.9 gm/dL (3.4-5.0); Albumin/Globulin Ratio 0.6 (1.1-1.8); Alkaline Phosphatase 141 U/L (46-116); Anion Gap 13.6 mEq/L (5-15); Aspartate Amino Transferase 21 U/L (15-37); Bilirubin,Total 0.3 mg/dL (0.2-1.0); Blood Urea Nitrogen 11 mg/dL (7-18); Calcium 8.7 mg/dL (8.5-10.1); Carbon Dioxide 32 mmol/L (21.0-32.0); Chloride 100 mmol/L (98-107); Globulin 4.5 gm/dl (1.3-3.2); Glucose 102 mg/dL (74-106); Sodium 143 mmol/L (136-145); Total Protein,Serum 7.4 gm/dL (6.4-8.2)
[2018-05-21 15:17] LABS: Potassium 2.6 mmoL/L (3.5-5.1)
[2018-05-22 05:48] LABS: Basophils % 0.1 % (0.1-2.0); Eosinophils # 0.1 K/mm3 (0.0-0.4); Eosinophils % 0.9 % (0.1-12.0); Lymphocytes # 1.6 K/mm3 (0.7-4.5); Lymphocytes % 22.1 % (10-50); Mean Corpuscular Hemoglobin 28.2 pg (27.0-31.2); Mean Corpuscular Volume 88.2 fl (81-99); Mean Platelet Volume 7.5 fl (7.4-10.4); Monocytes # 0.4 K/mm3 (0.1-1.0); Monocytes % 5.2 % (1.7-9.3); Neutrophils # 5.1 K/mm3 (1.8-7.8); Neutrophils % 71.6 % (37.0-80.0); Platelet Count 301 K/mm3 (142-424); Red Blood Count 2.99 M/mm3 (4.20-5.40); Red Cell Distribution Width 17.2 % (11.5-17.5); White Blood Count 7.1 K/mm3 (4.8-10.8)
[2018-05-22 05:53] LABS: Hematocrit 26.4 % (37.0-47.0); Hemoglobin 8.4 g/dL (12.2-16.2)
[2018-05-22 05:56] LABS: Anion Gap 10.4 mEq/L (5-15); Calcium 8.5 mg/dL (8.5-10.1); Potassium 3.4 mmoL/L (3.5-5.1)
--- NOTE | 2018-05-22 07:24 | Pharmacy Consult Notes ---
[facility] Pharmacy VTE Monitoring - Patient Demographics Admission date: 05/21/18 Report Date: 05/22/18 Time: 07:24 Allergies/Adverse Reactions: Patient Allergies No Known Allergies Allergy (Verified 04/21/18 11:01) Height: 1.52 m Weight: 77.111 kg Patient Problems: Current Active Problems Chest pain in adult (Acute) Hypokalemia (Acute) - VTE Risk Labs: VTE Related Lab Results Hgb 8.4 g/dL (12.2-16.2) L D 05/22/18 05:13 Hct 26.4 % (37.0-47.0) L 05/22/18 05:13 Plt Count 301 K/mm3 (142-424) 05/22/18 05:13 BUN 14 mg/dL (7-18) D 05/22/18 05:13 Creatinine 0.77 mg/dL (0.55-1.02) 05/22/18 05:13 Estimated Creat Clear 58 mL/min (50-200) 05/22/18 05:13 VTE Score: 2 - Prophylaxis VTE Prophylaxis Ordered?: Yes Types of VTE Prophylaxis: TEDS Knee High Location of Applied Device: Bilateral Lower Extremeties - VTE Diagnosis Confirmed Treatment or plan recommended: Continue Current Treatment
--- NOTE | 2018-05-22 07:32 | History & Physical Report ---
*Admission Date: 05/21/18 *Chief complaint: Chest tightness *History of present illness: 77-year-old female presented to the emergency department with at least 2 days of episodes of chest tightness radiating up into the neck and head. Patient denies cough or shortness of breath. She admits to 4 pound weight gain over the previous 48 hours with sensation of swelling at least in her left hand and some in her feet although she admits this morning the feet look better. She has a history of coronary artery disease but recently had cardiac catheterization. Last known ejection fraction was 50%. Decision was made to admit the patient for observation. Her chest pain has been alleviated with 2 nitroglycerin prior to presentation to the emergency department. Is not had any chest pain overnight. Patient was noted to have low-grade fever on presentation [facility] History I have reviewed the patient's past medical history: Yes Medical History: Reports:: Atrial Fibrillation, Congestive Heart Failure, Coronary Artery Disease, Hypertension, Internal Pacemaker, Myocardial Infarction Denies:: Cancer, Diabetes Mellitus Type 1, Diabetes Mellitus Type 2, MRSA, Seizures *Have you ever received a pneumonia vaccine?: Yes *Have you received a flu vaccine this season?: Yes Other Medical History: Reports: Anemia, Cataracts. Denies: Blood Transfusion Reaction Other Surgeries: Yes: Angiogram, Appendectomy, Cardiac Catheterization, Hysterectomy-Total, Pacemaker, Other ([facility]-2018) Amputation: No Fractures: No - *Social History Educational Level: Completed GED/General Educational Development Smoking Status: Former smoker Tobacco Type: cigarettes # Packs/Day (cigarettes): 1 Alcohol Intake: never Alcohol Intake Frequency:: holidays/special occasions only *Occupational Status:: retired Housing: house Household Members: children *Travel in the last 8 weeks: None - Psychiatric History Expresses thoughts of harming self/others: None Suicide Plan Description: No Plan Family Hx:: Coronary Artery Disease, Heart Attack Review of Systems - Review of Systems Review of systems:: pertinent systems reviewed and negative unless documented below - Constitutional Denies body ache(s), Denies chills, Denies fever(s), Denies malaise - *Cardiovascular Reports chest pain - *Respiratory Denies change in phlegm color, Denies chest congestion, Denies cough, Denies shortness of breath - *Gastrointestinal Denies abdominal pain - *Neurologic Denies dizziness, Denies localized weakness Meds Home Medications Medication Instructions Recorded Confirmed Type clopidogrel 75 mg tablet 75 mg PO QDAY 02/17/17 05/21/18 History albuterol sulfate HFA 90 2 puff INHALATION Q6H PRN 02/18/17 05/21/18 History mcg/actuation aerosol inhaler aspirin 81 mg tablet,delayed 81 mg PO DAILY 02/18/17 05/21/18 History release budesonide-formoterol HFA 160 2 puff INHALATION Q12H PRN 02/18/17 05/21/18 History mcg-4.5 mcg/actuation aerosol inhaler multivitamin tablet 1 tab PO DAILY 02/18/17 05/21/18 History nitroglycerin 0.4 mg sublingual 0.4 mg SUBLINGUAL NEEDED PRN 02/18/17 05/21/18 History tablet Escitalopram Oxalate [Lexapro] 20 mg PO DAILY 02/24/17 05/21/18 History Pramipexole Di-HCl [Mirapex] 2 mg PO HS 02/24/17 05/21/18 History pantoprazole 40 mg tablet,delayed 40 mg PO BID tab 05/24/17 05/21/18 History release Losartan Potassium [Cozaar] 50 mg PO DAILY 04/20/18 05/21/18 History furosemide 40 mg tablet 40 mg PO TID #90 tab 05/03/18 05/21/18 Rx Atorvastatin Calcium [Atorvastatin 40 mg PO DAILY 05/21/18 05/21/18 History 40mg Tab] Biotin 10,000 mcg PO DAILY 05/21/18 05/21/18 History Gabapentin [Gabapentin 300mg Cap] 300 mg PO HS 05/21/18 05/21/18 History Metoprolol Succinate 25 mg PO DAILY 05/21/18 05/21/18 History Metoprolol Succinate [Kapspargo 100 mg PO DAILY 05/21/18 05/21/18 History Sprinkle] Allergies Allergy/AdvReac Type Severity Reaction Status Date / Time No Known Allergies Allergy Verified 04/21/18 11:01 Exam Vital signs and Labs for Last 24 Hours: Temp Pulse Resp BP Pulse Ox 98.3 F 88 18 106/32 L 95 05/22/18 04:00 05/22/18 05:53 05/22/18 04:00 05/22/18 04:00 05/22/18 05:53 Laboratory Results - last 24 hr 05/21/18 06:15: Influenza Type A Ag Negative, Influenza Type B Ag Negative 05/21/18 14:37: Urine Color Yellow, Urine Appearance Clear, Urine pH 6.0, Ur Specific [place] <= 1.005, Urine Protein Negative, Urine Glucose (UA) Negative, Urine Ketones Negative, Urine Blood Negative, Urine Nitrate Negative, Urine Bilirubin Negative, Urine Urobilinogen 0.2, Ur Leukocyte Esterase Negative, Urine WBC Occasional, Ur Squamous Epith Cells 3-5, Urine Bacteria Trace 05/21/18 14:42: WBC 9.6, RBC 3.51 L, Hgb 10.0 L, Hct 30.7 L, MCV 87.5, MCH 28.5, MCHC 32.6, RDW 17.0, Plt Count 358, MPV 7.1 L, Neut % (Auto) 83.7 H, Lymph % (Auto) 12.0, [place] % (Auto) 3.3, Eos % (Auto) 0.7, Baso % (Auto) 0.3, Neut # (Auto) 8.0 H, Lymph # (Auto) 1.1, [place] # (Auto) 0.3, Eos # (Auto) 0.1, Baso # (Auto) 0.0 05/21/18 14:42: Sodium 143, Potassium 2.6 L*, Chloride 100, Carbon Dioxide 32, Anion Gap 13.6, BUN 11, Creatinine 0.83, Estimated Creat Clear 57, Estimated GFR 67, Est GFR ( Amer) 81, Glucose 102, Calcium 8.7, Total Bilirubin 0.3, AST 21, ALT 22, Alkaline Phosphatase 141 H, Troponin I < 0.02, Total Protein 7.4, Albumin 2.9 L, Globulin 4.5 H, Albumin/Globulin Ratio 0.6 L 05/21/18 14:42: Lactate 2.3 H 05/21/18 14:42: B-Natriuretic Peptide 40 05/21/18 18:25: Troponin I < 0.02 05/21/18 18:25: Lactate 2.3 H 05/21/18 21:00: Lactate 1.6 05/22/18 01:40: Troponin I < 0.02 05/22/18 05:13: WBC 7.1 D, RBC 2.99 L, Hgb 8.4 L D, Hct 26.4 L, MCV 88.2, MCH 28.2, MCHC 32.0, RDW 17.2, Plt Count 301, MPV 7.5, Neut % (Auto) 71.6, Lymph % (Auto) 22.1, [place] % (Auto) 5.2, Eos % (Auto) 0.9, Baso % (Auto) 0.1, Neut # (Auto) 5.1, Lymph # (Auto) 1.6, [place] # (Auto) 0.4, Eos # (Auto) 0.1, Baso # (Auto) 0.0 05/22/18 05:13: Sodium 146 H, Potassium 3.4 L D, Chloride 108 H, Carbon Dioxide 31, Anion Gap 10.4, BUN 14 D, Creatinine 0.77, Estimated Creat Clear 58, Estimated GFR 73, Est GFR ( Amer) 88, Glucose 121 H, Calcium 8.5 I & O for Last 24 hours: Intake & Output 05/19/18 05/20/18 05/21/18 05/22/18 11:59 11:59 11:59 11:59 Intake Total 1620 / 1620 Output Total 350 / 350 Balance 1270 / 1270 Weight 170 lb Narrative: Patient is awake and alert sitting up in bed. She does not appear to be in any pain or distress. ENT exam is unremarkable. Neck is without lymphadenopathy. Lungs have coarse breath sounds bilaterally with initial wheezing on expiration although that cleared with repetitive deep breathing. Heart has a regular rate and rhythm. Abdomen is soft. Lower extremities have no edema this morning Assessment and Plan (1) Chest pain in adult Current visit: Yes Status: Acute Category: Medical Code(s): R07.9 - Chest pain, unspecified (2) Hypokalemia Current visit: Yes Status: Acute Category: Medical Code(s): E87.6 - Hypokalemia (3) Anemia Current visit: No Status: Acute Qualifiers: Anemia type: unspecified type Qualified Code(s): D64.9 - Anemia, unspecified Category: Medical Code(s): D64.9 - Anemia, unspecified - Assessment and plan all Dx Assessment and Plan for all problems:: Patient will be given intravenous steroids and breathing treatments for her mild bronchitis 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 She will be given diuretics as I think she slightly fluid overloaded and this is what contributed to her chest pain.
--- NOTE | 2018-05-22 07:40 | Consult Report ---
History of Present Illness Consult date: 05/22/18 Requesting physician: Heath Rogers Consult reason: shortness of breath Chief complaint: SOA, CP Additional Medical History:: 1. CAD A. Previous coronary stenting, last in early 2016, [facility], Dr. Brendon Davis B. [facility], 01/2017, patent coronary arteries with possible underdeployed stent versus 30-40% narrowing distally near the mid segment of the LAD which is likely clinically insignificant. Circumflex, nondominant with a mid vessel stent widely patent and free of in-stent restenosis. RCA is a large dominant vessel with mild luminal irregularities. BOYCE ventriculogram reveals left ventricular ejection fraction at 20-25% with mid anterior apical hypokinesis. LVEDP is 20 mmHg. C. Echocardiogram, 01/2017, moderate left atrial enlargement, normal LV size with mild concentric LVH. EF estimated 25-30% with multiple segmental wall motion abnormalities including marked hypokinesis in the mid to distal septum, anterior and anteroapical wall. Mild MR and moderate TR with RVSP of 55-60 mmHg consistent with moderate pulmonary hypertension. D. [facility] [employer]-D/AICD implanted, 01/2017 E. Cardiac catheterization, 12/2017, drug-eluting stent placement to ostial proximal LAD with notation of previously placed LAD stent in 2017 showing 10-20% in-stent restenosis. Left ventricular ejection fraction estimated at 55% with LVEDP of 25 mmHg. F. Cardiac catheterization 02/2018, widely patent coronary stents and normal ejection fraction with normal left ventricular end-diastolic pressure. 3. Chronic LBBB. 4. Ex smoker, >45 pk yr history 5. Hyperlipidemia 6. 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 History of present illness: 77-year-old white female with known coronary artery disease and AICD implantation presented to the emergency department for 2-day history of shortness of breath and chest discomfort. Patient relates a pressure type sensation radiating up into the neck and the head as if her head was going to explode. She does relate some recent edema in the left leg and left arm without any TIA or CVA type symptoms. Patient has noted a slight nonproductive cough and no fever or chills. She denies any nausea, vomiting or diarrhea. She denies any nocturnal dyspnea. Patient's activity is limited severely by her low back pain and lower extremity discomfort. Patient came to the emergency department for evaluation of her symptoms. Relief was noted after 2 sublingual nitroglycerin. Troponins were returned normal x3. BNP is normal at 40 and chest x-ray shows no evidence of congestive heart failure or pneumonia. Recent cardiac catheterization showing patent coronary arteries and stents with normal ejection fraction and normal left ventricular end-diastolic pressure. Patient EKG shows ventricular pacing with capture. Patient's edema has improved this morning and she states she is breathing a little bit better but not back to her normal self at this time. Recent ICD interrogation showed 11 episodes of SVT and 2 episodes of nonsustained ventricular tachycardia for which the patient's Toprol was increased to 100 mg daily. [facility] History Medical History: Reports:: Atrial Fibrillation, Congestive Heart Failure, Coronary Artery Disease, Hypertension, Internal Pacemaker, Myocardial Infarction Denies:: Cancer, Diabetes Mellitus Type 1, Diabetes Mellitus Type 2, MRSA, Seizures *Have you ever received a pneumonia vaccine?: Yes *Have you received a flu vaccine this season?: Yes Other Medical History: Reports: Anemia, Cataracts. Denies: Blood Transfusion Reaction Other Surgeries: Yes: Angiogram, Appendectomy, Cardiac Catheterization, Hysterectomy-Total, Pacemaker, Other ([facility]-2018) Amputation: No Fractures: No - *Social History Educational Level: Completed GED/General Educational Development Smoking Status: Former smoker Tobacco Type: cigarettes # Packs/Day (cigarettes): 1 Alcohol Intake: never Alcohol Intake Frequency:: holidays/special occasions only *Occupational Status:: retired Housing: house Household Members: children *Travel in the last 8 weeks: None - Psychiatric History Expresses thoughts of harming self/others: None Suicide Plan Description: No Plan Family Hx:: Coronary Artery Disease, Heart Attack Meds Home Medications Medication Instructions Recorded Confirmed Type clopidogrel 75 mg tablet 75 mg PO QDAY 02/17/17 05/21/18 History albuterol sulfate HFA 90 2 puff INHALATION Q6H PRN 02/18/17 05/21/18 History mcg/actuation aerosol inhaler aspirin 81 mg tablet,delayed 81 mg PO DAILY 02/18/17 05/21/18 History release budesonide-formoterol HFA 160 2 puff INHALATION Q12H PRN 02/18/17 05/21/18 History mcg-4.5 mcg/actuation aerosol inhaler multivitamin tablet 1 tab PO DAILY 02/18/17 05/21/18 History nitroglycerin 0.4 mg sublingual 0.4 mg SUBLINGUAL NEEDED PRN 02/18/17 05/21/18 History tablet Escitalopram Oxalate [Lexapro] 20 mg PO DAILY 02/24/17 05/21/18 History Pramipexole Di-HCl [Mirapex] 2 mg PO HS 02/24/17 05/21/18 History pantoprazole 40 mg tablet,delayed 40 mg PO BID tab 05/24/17 05/21/18 History release Losartan Potassium [Cozaar] 50 mg PO DAILY 04/20/18 05/21/18 History furosemide 40 mg tablet 40 mg PO TID #90 tab 05/03/18 05/21/18 Rx Atorvastatin Calcium [Atorvastatin 40 mg PO DAILY 05/21/18 05/21/18 History 40mg Tab] Biotin 10,000 mcg PO DAILY 05/21/18 05/21/18 History Gabapentin [Gabapentin 300mg Cap] 300 mg PO HS 05/21/18 05/21/18 History Metoprolol Succinate 25 mg PO DAILY 05/21/18 05/21/18 History Metoprolol Succinate [Kapspargo 100 mg PO DAILY 05/21/18 05/21/18 History Sprinkle] Allergies Allergy/AdvReac Type Severity Reaction Status Date / Time No Known Allergies Allergy Verified 04/21/18 11:01 Review of Systems - *Cardiovascular Reports chest pain, Reports shortness of breath, Reports shortness of breath with activity - *Respiratory Reports cough, Reports shortness of breath, Reports shortness of breath with activity - *Gastrointestinal Denies abdominal pain, Denies incontinent of stools - *Genitourinary Denies blood in urine - *Musculoskeletal Reports back pain, Reports radiating pain into limb - *Neurologic Denies dizziness, Denies localized weakness Exam Vital signs and Labs for Last 24 Hours: Temp Pulse Resp BP Pulse Ox 98.3 F 88 18 106/32 L 95 05/22/18 04:00 05/22/18 05:53 05/22/18 04:00 05/22/18 04:00 05/22/18 05:53 Laboratory Results - last 24 hr 05/21/18 06:15: Influenza Type A Ag Negative, Influenza Type B Ag Negative 05/21/18 14:37: Urine Color Yellow, Urine Appearance Clear, Urine pH 6.0, Ur Specific [place] <= 1.005, Urine Protein Negative, Urine Glucose (UA) Negative, Urine Ketones Negative, Urine Blood Negative, Urine Nitrate Negative, Urine Bilirubin Negative, Urine Urobilinogen 0.2, Ur Leukocyte Esterase Negative, Urine WBC Occasional, Ur Squamous Epith Cells 3-5, Urine Bacteria Trace 05/21/18 14:42: WBC 9.6, RBC 3.51 L, Hgb 10.0 L, Hct 30.7 L, MCV 87.5, MCH 28.5, MCHC 32.6, RDW 17.0, Plt Count 358, MPV 7.1 L, Neut % (Auto) 83.7 H, Lymph % (Auto) 12.0, [place] % (Auto) 3.3, Eos % (Auto) 0.7, Baso % (Auto) 0.3, Neut # (Auto) 8.0 H, Lymph # (Auto) 1.1, [place] # (Auto) 0.3, Eos # (Auto) 0.1, Baso # (Auto) 0.0 05/21/18 14:42: Sodium 143, Potassium 2.6 L*, Chloride 100, Carbon Dioxide 32, Anion Gap 13.6, BUN 11, Creatinine 0.83, Estimated Creat Clear 57, Estimated GFR 67, Est GFR ( Amer) 81, Glucose 102, Calcium 8.7, Total Bilirubin 0.3, AST 21, ALT 22, Alkaline Phosphatase 141 H, Troponin I < 0.02, Total Protein 7.4, Albumin 2.9 L, Globulin 4.5 H, Albumin/Globulin Ratio 0.6 L 05/21/18 14:42: Lactate 2.3 H 05/21/18 14:42: B-Natriuretic Peptide 40 05/21/18 18:25: Troponin I < 0.02 05/21/18 18:25: Lactate 2.3 H 05/21/18 21:00: Lactate 1.6 05/22/18 01:40: Troponin I < 0.02 05/22/18 05:13: WBC 7.1 D, RBC 2.99 L, Hgb 8.4 L D, Hct 26.4 L, MCV 88.2, MCH 28.2, MCHC 32.0, RDW 17.2, Plt Count 301, MPV 7.5, Neut % (Auto) 71.6, Lymph % (Auto) 22.1, [place] % (Auto) 5.2, Eos % (Auto) 0.9, Baso % (Auto) 0.1, Neut # (Auto) 5.1, Lymph # (Auto) 1.6, [place] # (Auto) 0.4, Eos # (Auto) 0.1, Baso # (Auto) 0.0 05/22/18 05:13: Sodium 146 H, Potassium 3.4 L D, Chloride 108 H, Carbon Dioxide 31, Anion Gap 10.4, BUN 14 D, Creatinine 0.77, Estimated Creat Clear 58, Estimated GFR 73, Est GFR ( Amer) 88, Glucose 121 H, Calcium 8.5 I & O for Last 24 hours: Intake & Output 05/19/18 05/20/18 05/21/18 05/22/18 11:59 11:59 11:59 11:59 Intake Total 1620 / 1620 Output Total 350 / 350 Balance 1270 / 1270 Weight 170 lb - *Routine HEENT Exam Head: Present: normocephalic Eye: Present: EOMI, PERRL ENT: Present: mucous membranes moist - *Routine Neck Exam Present: supple. Absent: JVD, carotid bruit - *Routine Respiratory Exam Present: diminished air movement. Absent: accessory muscle use, rales, rhonchi, wheezes Comments: Rhonchi noted in the right lung base with rales noted in the left lung base versus atelectasis. - *Routine Cardiovascular Exam Present: RRR, murmur. Absent: gallop, rubs - *Routine Abdominal Exam Present: soft. Absent: tenderness, distended, guarding - *Routine Extremities Exam Absent: edema, calf tenderness - *Routine Neurological Exam Present: alert, oriented X3, moving all extremities Assessment and Plan (1) Chest pain in adult Current visit: Yes Status: Acute Category: Medical Code(s): R07.9 - Chest pain, unspecified (2) Hypokalemia Current visit: Yes Status: Acute Category: Medical Code(s): E87.6 - Hypokalemia (3) Anemia Current visit: No Status: Acute Qualifiers: Anemia type: unspecified type Qualified Code(s): D64.9 - Anemia, unspecified Category: Medical Code(s): D64.9 - Anemia, unspecified (4) Exertional dyspnea Current visit: No Status: Acute Category: Medical Code(s): R06.09 - Other forms of dyspnea (5) AICD (automatic cardioverter/defibrillator) present Current visit: No Status: Chronic Category: Surgical Code(s): Z95.810 - Presence of automatic (implantable) cardiac defibrillator (6) CAD (coronary artery disease) Current visit: No Status: Chronic Qualifiers: Coronary Disease-Associated Artery/Lesion type: [place] artery [place] vs. transplanted heart: [place] heart Associated angina: with stable angina Qualified Code(s): I25.118 - Atherosclerotic heart disease of [place] coronary artery with other forms of angina pectoris Category: Medical Code(s): I25.10 - Atherosclerotic heart disease of [place] coronary artery without angina pectoris (7) HLD (hyperlipidemia) Current visit: No Status: Chronic Qualifiers: Hyperlipidemia type: other hyperlipidemia Category: Medical Code(s): E78.5 - Hyperlipidemia, unspecified (8) HTN (hypertension) Current visit: No Status: Chronic Qualifiers: Hypertension type: essential hypertension Qualified Code(s): I10 - Essential (primary) hypertension Category: Medical Code(s): I10 - Essential (primary) hypertension (9) Leg pain Current visit: No Status: Chronic Category: Medical Code(s): M79.606 - Pain in leg, unspecified - Assessment and plan all Dx Assessment and Plan for all problems:: 1. Patient admitted for chest pain/shortness of breath. With normal troponins, normal BNP and no acute change on EKG or chest x-ray, would not recommend further cardiac evaluation at this time. 2. Discussed with Dr. Rogers, patient will receive additional diuretic today for possible minor vascular engorgement noted on chest x-ray but no evidence of CHF. Anticipate the patient will be discharged home later today or tomorrow. 3. Follow-up in our office as previously scheduled.
[2018-05-22 15:42] LABS: Basophils % 0.2 % (0.1-2.0); Eosinophils % 0.1 % (0.1-12.0); Hematocrit 28.1 % (37.0-47.0); Lymphocytes # 0.7 K/mm3 (0.7-4.5); Lymphocytes % 7.9 % (10-50); Mean Corpuscular HGB Conc 33.7 g/dL (31.8-35.4); Mean Corpuscular Hemoglobin 29.7 pg (27.0-31.2); Mean Corpuscular Volume 88.2 fl (81-99); Mean Platelet Volume 7.3 fl (7.4-10.4); Monocytes # 0.1 K/mm3 (0.1-1.0); Monocytes % 1.5 % (1.7-9.3); Neutrophils # 8.3 K/mm3 (1.8-7.8); Neutrophils % 90.4 % (37.0-80.0); Platelet Count 347 K/mm3 (142-424); Red Blood Count 3.19 M/mm3 (4.20-5.40); Red Cell Distribution Width 17.2 % (11.5-17.5); White Blood Count 9.1 K/mm3 (4.8-10.8)
[2018-05-22 15:52] LABS: Hemoglobin 9.4 g/dL (12.2-16.2)
--- NOTE | 2018-05-22 16:02 | Discharge Summary ---
General - General Admission date:: 05/21/18 Discharge date: 05/22/18 HPI HPI: 77-year-old female presented to the emergency department with at least 2 days of episodes of chest tightness radiating up into the neck and head. Patient denies cough or shortness of breath. She admits to 4 pound weight gain over the previous 48 hours with sensation of swelling at least in her left hand and some in her feet although she admits this morning the feet look better. She has a history of coronary artery disease but recently had cardiac catheterization. Last known ejection fraction was 50%. Decision was made to admit the patient for observation. Her chest pain has been alleviated with 2 nitroglycerin prior to presentation to the emergency department. Is not had any chest pain overnight. Patient was noted to have low-grade fever on presentation Hospital Course Hospital Course: Patient was admitted for additional testing and observation on medical surgical unit. BNP, serial troponins, and chest xray were negative, no acute changes noted on EKG, cardiology consulted due to PMH and no additional treatments performed. Patient has responded well to diuretics and increased frequency of neb treatments today, states breathing easier and is requesting discharge home. Objective Vital signs: Temp Pulse Resp BP Pulse Ox 98.7 F 80 19 119/46 L 96 05/22/18 12:00 05/22/18 13:46 05/22/18 12:00 05/22/18 12:00 05/22/18 12:00 no acute distress, obese - *Routine HEENT Exam Head: Present: normocephalic, atraumatic Eye: Present: EOMI, PERRL ENT: Present: mucous membranes moist - *Routine Respiratory Exam Present: CTA bilaterally, diminished air movement - *Routine Cardiovascular Exam Present: RRR, Normal S1, Normal S2. Absent: irregularly irregular - *Routine Abdominal Exam Present: soft, normoactive bowel sounds. Absent: tenderness, distended - *Routine Extremities Exam Absent: cyanosis, edema Comments: trace peripheral edema - *Routine Skin Exam Present: intact, pallor. Absent: cyanosis, dry - *Routine Neurological Exam Present: alert, oriented X3 - Routine Psychiatric Exam Present: normal affect Results Labs on day of discharge: Labs from last 24 hours 05/22/18 05/22/18 05/22/18 15:08 05:13 05:13 WBC 9.1 D 7.1 D RBC 3.19 L 2.99 L Hgb 9.4 L D 8.4 L D Hct 28.1 L 26.4 L MCV 88.2 88.2 MCH 29.7 28.2 MCHC 33.7 32.0 RDW 17.2 17.2 Plt Count 347 301 MPV 7.3 L 7.5 Neut % (Auto) 90.4 H 71.6 Lymph % (Auto) 7.9 L 22.1 [place] % (Auto) 1.5 L 5.2 Eos % (Auto) 0.1 0.9 Baso % (Auto) 0.2 0.1 Neut # (Auto) 8.3 H 5.1 Lymph # (Auto) 0.7 1.6 [place] # (Auto) 0.1 0.4 Eos # (Auto) 0.0 0.1 Baso # (Auto) 0.0 0.0 Sodium 146 H Potassium 3.4 L D Chloride 108 H Carbon Dioxide 31 Anion Gap 10.4 BUN 14 D Creatinine 0.77 Estimated Creat Clear 58 Estimated GFR 73 Est GFR ( Amer) 88 Glucose 121 H Lactate Calcium 8.5 Troponin I Influenza Type A Ag Influenza Type B Ag 05/22/18 05/21/18 05/21/18 01:40 21:00 18:25 WBC RBC Hgb Hct MCV MCH MCHC RDW Plt Count MPV Neut % (Auto) Lymph % (Auto) [place] % (Auto) Eos % (Auto) Baso % (Auto) Neut # (Auto) Lymph # (Auto) [place] # (Auto) Eos # (Auto) Baso # (Auto) Sodium Potassium Chloride Carbon Dioxide Anion Gap BUN Creatinine Estimated Creat Clear Estimated GFR Est GFR ( Amer) Glucose Lactate 1.6 2.3 H Calcium Troponin I < 0.02 Influenza Type A Ag Influenza Type B Ag 05/21/18 05/21/18 18:25 06:15 WBC RBC Hgb Hct MCV MCH MCHC RDW Plt Count MPV Neut % (Auto) Lymph % (Auto) [place] % (Auto) Eos % (Auto) Baso % (Auto) Neut # (Auto) Lymph # (Auto) [place] # (Auto) Eos # (Auto) Baso # (Auto) Sodium Potassium Chloride Carbon Dioxide Anion Gap BUN Creatinine Estimated Creat Clear Estimated GFR Est GFR ( Amer) Glucose Lactate Calcium Troponin I < 0.02 Influenza Type A Ag Negative Influenza Type B Ag Negative DS: Diagnosis - Discharge Diagnosis (1) Chest pain in adult Status: Acute (2) Hypokalemia Status: Acute (3) Anemia Status: Acute Discharge Plan - Patient Discharge Instructions ACTIVITY: Continue current activity DIET: continue same diet Patient Instructions: DI for Hypokalemia, DI for Chest Pain - Follow up Plan Follow up with: Heath Rogers MD [Primary Care Provider] - 1 week Unknown provider or service follow up:: 05/22/18 16:04 keep cardiology follow up as scheduled please Disposition: Home, Self-Long-Term Medications: Home Medications Medication Instructions Recorded Confirmed Type clopidogrel 75 mg tablet 75 mg PO DAILY 02/17/17 05/22/18 History albuterol sulfate HFA 90 2 puff INHALATION Q6H PRN 02/18/17 05/21/18 History mcg/actuation aerosol inhaler aspirin 81 mg tablet,delayed 81 mg PO DAILY 02/18/17 05/21/18 History release budesonide-formoterol HFA 160 2 puff INHALATION Q12H PRN 02/18/17 05/21/18 History mcg-4.5 mcg/actuation aerosol inhaler multivitamin tablet 1 tab PO DAILY 02/18/17 05/21/18 History nitroglycerin 0.4 mg sublingual 0.4 mg SUBLINGUAL NEEDED PRN 02/18/17 05/21/18 History tablet Escitalopram Oxalate [Lexapro] 20 mg PO DAILY 02/24/17 05/21/18 History Pramipexole Di-HCl [Mirapex] 2 mg PO HS 02/24/17 05/21/18 History pantoprazole 40 mg tablet,delayed 40 mg PO BID tab 05/24/17 05/21/18 History release Losartan Potassium [Cozaar] 50 mg PO DAILY 04/20/18 05/21/18 History Biotin 10,000 mcg PO DAILY 05/21/18 05/21/18 History Gabapentin [Gabapentin 300mg Cap] 300 mg PO HS 05/21/18 05/21/18 History Metoprolol Succinate 25 mg PO DAILY 05/21/18 05/21/18 History Metoprolol Succinate [Kapspargo 100 mg PO DAILY 05/21/18 05/21/18 History Sprinkle] Acetaminophen with Codeine 1 tab PO Q6HP PRN 05/22/18 05/22/18 History [Tylenol with Codeine #3 tablet] Atorvastatin Calcium [Atorvastatin 40 mg PO HS 05/22/18 05/22/18 History 40mg Tab] Furosemide [Lasix 40mg tablet] 40 mg PO BID 05/22/18 05/22/18 History Potassium Chloride 40 meq PO DAILY #30 tablet.er 05/22/18 Rx predniSONE [Prednisone 20mg 40 mg PO DAILY 5 Days #10 tab 05/22/18 Rx Tab] Prescriptions/Medication Reconciliation: Continue clopidogrel 75 mg tablet 75 mg PO DAILY aspirin 81 mg tablet,delayed release 81 mg PO DAILY budesonide-formoterol HFA 160 mcg-4.5 mcg/actuation aerosol inhaler 2 puff INHALATION Q12H PRN PRN Reason: Dyspnea albuterol sulfate HFA 90 mcg/actuation aerosol inhaler 2 puff INHALATION Q6H PRN PRN Reason: Dyspnea nitroglycerin 0.4 mg sublingual tablet 0.4 mg SUBLINGUAL NEEDED PRN PRN Reason: Chest Pain pantoprazole 40 mg tablet,delayed release 40 mg PO BID tab multivitamin tablet 1 tab PO DAILY Escitalopram Oxalate [Lexapro] 20 mg PO DAILY Losartan Potassium [Cozaar] 50 mg PO DAILY Metoprolol Succinate 25 mg PO DAILY Metoprolol Succinate [Kapspargo Sprinkle] 100 mg PO DAILY Gabapentin [Gabapentin 300mg Cap] 300 mg PO HS Acetaminophen with Codeine [Tylenol with Codeine #3 tablet] 1 tab PO Q6HP PRN PRN Reason: Mild Pain Furosemide [Lasix 40mg tablet] 40 mg PO BID Pramipexole Di-HCl [Mirapex] 2 mg PO HS Biotin 10,000 mcg PO DAILY Atorvastatin Calcium [Atorvastatin 40mg Tab] 40 mg PO HS
[2018-05-22 16:19] LABS: Lymphocytes % 7 % (10-50); Monocytes % 1 % (2-9); Neutrophils % 91 % (42-76); Nucleated Red Blood Cells 2; RBC Morphology Normal; Total Cells Counted 100
== END 2018-05-22 17:19 | disposition home or self-care (01) ==
LOC: ER 14:35 → 2ND 14:35
PROVIDERS: ADMIT Family Medicine; ATTEND Family Medicine
CPT/HCPCS: 36415; 71010; 71045; 80048; 80053; 81001; 83605; 83880; 84484; 85007; 85025; 87040; 87275; 87276; 94640; 94761; 96365; 96367; 99284; G0378

== ENCOUNTER → 2018-06-26 14:15 | Outpatient (POV) | payer MEDICARE, BC, SELFPAY ==
--- NOTE | 2018-06-26 14:48 | HMH.PAINSOAP ---
[facility] Pain Management SOAP Note Subjective:: Patient is a pleasant 77-year-old white female who presents today for follow-up after intrathecal pain pump implantation. She denies any pain. She denies any side effects she is doing well at this time. She is currently have an intrathecal morphine infusion of 0.25 mg/day. Patient had her wound VAC taken off by her family. Incision is clean dry and intact sutures are in place. There is no signs of redness. ROS General: no recent weight change, no fever, no sleep disturbances Respiratory: no cough, no shortness of air, no recurring pulmonary infections Cardiovascular/Peripheral Vascular: No chest pain, No palpitations, no edema, no shortness of breath. Gastrointestinal: no incontinence, normal bowel movements reported Genitourinary: no incontinence Musculoskeletal: Back pain at times Psychiatric: normal mood/ affect Neurological: [denies weakness in extremities], [denies balance issues] Objective:: Physical Exam General: Alert and oriented x3, no acute distress, pleasant and cooperative, [on room air] Lungs: Resps E/U, Symmetrical chest expansion, Eyes: PERRL Musculoskeletal: Flexion and extension of lumbar spine somewhat guarded secondary to pain, deep tendon reflexes normal, strength in upper and lower extremities [5/5], antalgic gait noted Neurological: speech clear, professor of archaeology equal, no gross sensory deficits Assessment:: Degenerative disc disease lumbar spine with lumbar radiculopathy Plan:: We will see the patient back in 2 weeks to have her stitches removed. Patient's been instructed to call the office if she has any issues prior to her next appointment. Dr. Martinez has reviewed this note and agrees with this plan of care. This note was dictated using voice recognition software and may contain errors or omissions
[2018-06-26 14:52] VITALS: BP 140/70; PULSE 70; RESP 18; O2SAT 98; BMI 26.6
== END ==
PROVIDERS: PCP Family Medicine; Visit Provider Clinical Nurse Specialist Family Health
DX: M51.16 Intervertebral disc disorders with radiculopathy, lumbar region (principal)
CPT/HCPCS: 99212

== ENCOUNTER → 2018-06-30 13:55 | Outpatient (POV) | payer MEDICARE, BC, SELFPAY ==
[2018-06-30 14:13] VITALS: BP 114/41; PULSE 75; RESP 20; O2SAT 95; BMI 33.2
--- NOTE | 2018-06-30 14:24 | HMH.PMPROC ---
- Procedure Date: 06/30/18 Time: 14:24 Anesthesiologist:: Mumtaz Martinez MD Complications:: None Pre-procedure Diagnosis:: Degenerative disc disease of lumbar spine with lumbar radiculopathy symptoms with intrathecal morphine pain pump in place Post-procedure Diagnosis:: Same Indications for Procedure:: This patient is a pleasant 77-year-old white female who had her intrathecal morphine pump placed approximately 8 days ago. She was doing well up until yesterday when she started to have some increasing pain. She has increased some of her activities. We will reprogram her intrathecal morphine pain pump and increase her infusion to 0.5 mg/day. We will also implement her PTC boluses at 0.05 mg up to 4 times a day. Procedure Details:: Reprogramming of intrathecal morphine pain pump Informed consent was obtained and the risk and benefits of the procedure was explained to the patient. Patient was taken to the procedure room. The pump was interrogated. Intrathecal morphine pain pump was increased from 0.25 mg/day to 0.5 mg/day. PTC was initiated at 0.05 mg up to 4 times a day. Patient tolerated the procedure well with no complications. Plan and Disposition:: We will follow-up with her next week. We will reevaluate her symptoms and make further changes if needed.
== END ==
PROVIDERS: PCP Family Medicine; Visit Provider Anesthesiology
DX: M51.16 Intervertebral disc disorders with radiculopathy, lumbar region (principal); Z97.8 Presence of other specified devices
CPT/HCPCS: 62368

== ENCOUNTER → 2018-07-06 12:44 | Outpatient (CLI) | payer MEDICARE, BC, SELFPAY ==
[2018-07-06 13:07] LABS: Anion Gap 13.9 mEq/L (5-15); Blood Urea Nitrogen 13 mg/dL (7-18); Calcium 8.4 mg/dL (8.5-10.1); Carbon Dioxide 29 mmol/L (21.0-32.0); Chloride 101 mmol/L (98-107); Creatinine,Serum 0.85 mg/dL (0.55-1.02); Estimated Glomerular Filt Rate 65 ml/min (>60); GFR (African American) 79 ML/MIN (>60); Glucose 112 mg/dL (74-106); Magnesium 1.8 mg/dL (1.4-2.2); Potassium 3.9 mmoL/L (3.5-5.1); Sodium 140 mmol/L (136-145)
[2018-07-06 15:04] LABS: Basophils % 0.3 % (0.1-2.0); Eosinophils # 0.1 K/mm3 (0.0-0.4); Eosinophils % 0.9 % (0.1-12.0); Lymphocytes # 1.1 K/mm3 (0.7-4.5); Lymphocytes % 10.8 % (10-50); Mean Corpuscular HGB Conc 31.2 g/dL (31.8-35.4); Mean Corpuscular Hemoglobin 26.4 pg (27.0-31.2); Mean Corpuscular Volume 84.6 fl (81-99); Mean Platelet Volume 7.2 fl (7.4-10.4); Monocytes # 0.5 K/mm3 (0.1-1.0); Monocytes % 4.6 % (1.7-9.3); Neutrophils # 8.7 K/mm3 (1.8-7.8); Neutrophils % 83.4 % (37.0-80.0); Platelet Count 458 K/mm3 (142-424); Red Blood Count 2.96 M/mm3 (4.20-5.40); Red Cell Distribution Width 22.6 % (11.5-17.5); White Blood Count 10.5 K/mm3 (4.8-10.8)
[2018-07-06 15:19] LABS: Hemoglobin 7.8 g/dL (12.2-16.2)
== END ==
PROVIDERS: Visit Provider Internal Medicine Cardiovascular Disease
DX: I50.43 Acute on chronic combined systolic (congestive) and diastolic (congestive) heart failure (principal); R06.02 Shortness of breath; I25.118 Atherosclerotic heart disease of native coronary artery with other forms of angina pectoris; I42.9 Cardiomyopathy, unspecified; D64.9 Anemia, unspecified
CPT/HCPCS: 36415; 80048; 83735; 85025

== ENCOUNTER → 2018-07-07 08:05 | Outpatient (CLI) | payer MEDICARE, BC, SELFPAY ==
[2018-07-07] VITALS (22 sets, daily range): BP systolic 111–136; BP diastolic 41–65; PULSE 69–104; RESP 16–18; TEMP 36–36.7; O2SAT 96–100; BMI 34.3
[2018-07-07 16:06] LABS: Hematocrit 31.9 % (37.0-47.0); Hemoglobin 10.1 g/dL (12.2-16.2)
== END ==
PROVIDERS: Visit Provider Family Medicine
DX: D64.89 Other specified anemias (principal)
CPT/HCPCS: 36430; 85014; 85018; 86850; P9016

== ENCOUNTER → 2018-07-11 11:25 | Outpatient (POV) | payer MEDICARE, BC, SELFPAY ==
[2018-07-11 11:55] VITALS: BP 143/66; PULSE 77; RESP 18; O2SAT 98; BMI 34.3
--- NOTE | 2018-07-11 12:34 | P.PCN_ITS ---
- Procedure Date: 07/11/18 Time: 12:30 Anesthesiologist:: Kacie Sexton APRN Complications:: None Pre-procedure Diagnosis:: Degenerative disc disease lumbar spine with lumbar radiculopathy symptoms Post-procedure Diagnosis:: Same Indications for Procedure:: Patient is a pleasant 77-year-old white female who presents today for intrathecal pain pump follow-up. At her last visit her dose was doubled. Since then she has had swelling in her bilateral feet. Patient states that she has no pain today. We will decrease her pain pump slightly due to the swelling. Physical Exam General: Alert and oriented x3, no acute distress, pleasant and cooperative, [on room air] Lungs: Resps E/U, Symmetrical chest expansion, Eyes: PERRL Musculoskeletal: Flexion and extension of lumbar spine somewhat guarded secondary to pain, deep tendon reflexes normal, strength in upper and lower extremities [5/5], [abnormal gait noted] Neurological: speech clear, rehab nurse equal, no gross sensory deficits Procedure Details:: Informed consent was obtained and the risk and benefits of the procedure were explained to the patient. The patient was taken to the procedure room where noninvasive monitoring was placed including noninvasive blood pressure cuff and pulse oximeter. Patient's pump was interrogated and reprogrammed. The infusion rate was decreased to 0.4 mg of morphine a day. The patient tolerated the procedure well. Plan and Disposition:: I will see the patient back at her next intrathecal pain pump refill and reprogram she is been instructed to call the office if she has any issues prior to her next appointment. The incision site looks good with no sign symptoms of infection. Dr. Martinez has reviewed this note and agrees with this plan of care. This note was dictated using voice recognition software and may contain errors or omissions
== END ==
PROVIDERS: PCP Family Medicine; Visit Provider Clinical Nurse Specialist Family Health
DX: M51.16 Intervertebral disc disorders with radiculopathy, lumbar region (principal)
CPT/HCPCS: 62368

== ENCOUNTER → 2018-07-20 09:24 | Outpatient (CLI) | payer MEDICARE, BC, SELFPAY ==
[2018-07-20 10:48] LABS: Anion Gap 13.5 mEq/L (5-15); Blood Urea Nitrogen 20 mg/dL (7-18); Calcium 8.8 mg/dL (8.5-10.1); Carbon Dioxide 28 mmol/L (21.0-32.0); Chloride 101 mmol/L (98-107); Creatinine,Serum 1.05 mg/dL (0.55-1.02); Estimated Glomerular Filt Rate 51 ml/min (>60); GFR (African American) 62 ML/MIN (>60); Glucose 98 mg/dL (74-106); Potassium 4.5 mmoL/L (3.5-5.1); Sodium 138 mmol/L (136-145)
== END ==
PROVIDERS: Visit Provider Nurse Practitioner Family
DX: I50.43 Acute on chronic combined systolic (congestive) and diastolic (congestive) heart failure; I25.118 Atherosclerotic heart disease of native coronary artery with other forms of angina pectoris; I42.9 Cardiomyopathy, unspecified; I65.23 Occlusion and stenosis of bilateral carotid arteries; J81.0 Acute pulmonary edema; R00.2 Palpitations; R06.02 Shortness of breath; E78.49 Other hyperlipidemia; F17.200 Nicotine dependence, unspecified, uncomplicated; Z95.810 Presence of automatic (implantable) cardiac defibrillator
CPT/HCPCS: 36415; 80048; 83880

== ENCOUNTER → 2018-07-25 10:52 | Outpatient (POV) | payer MEDICARE, BC, SELFPAY ==
[2018-07-25 11:31] VITALS: BP 128/63; PULSE 88; RESP 18; O2SAT 98; BMI 32.0
--- NOTE | 2018-07-25 11:40 | HMH.PMPROC ---
- Procedure Date: 07/25/18 Time: 11:40 Anesthesiologist:: Kacie Sexton APRN Complications:: None Pre-procedure Diagnosis:: Degenerative disc disease lumbar spine with lumbar radiculopathy symptoms Post-procedure Diagnosis:: Same Indications for Procedure:: Is a pleasant 77-year-old white female who presents today for intrathecal pain pump adjustment. Patient rates her pain today a 7 out of 10. Patient was given a 0.06 mg bolus in the office and did extremely well her pain went down to a 4 out of 10. We will switch her to periodic flow today. She denies side effects to her morphine medication. Patient [facility] #[id number] Physical Exam General: Alert and oriented x3, no acute distress, pleasant and cooperative, [on room air] Lungs: Resps E/U, Symmetrical chest expansion, Eyes: PERRL Musculoskeletal: Flexion and extension of lumbar spine somewhat guarded secondary to pain, deep tendon reflexes normal, strength in upper and lower extremities [5/5], antalgic gait noted Neurological: speech clear, sewing demonstrator equal, no gross sensory deficits Procedure Details:: Informed consent was obtained and the risk and benefits of the procedure were explained to the patient. The patient was taken to the procedure room where noninvasive monitoring was placed including noninvasive blood pressure cuff and pulse oximeter. Patient's pump was interrogated and reprogrammed. The infusion rate was we will change the patient to periodic flow of 0.055 mg every 2 hours for total daily dose of 0.65 mg of morphine a day. The patient tolerated the procedure well. Plan and Disposition:: I will see the patient back at her next intrathecal pain pump refill and reprogram she is been instructed to call the office if she has any issues prior to her next appointment. Dr. Martinez has reviewed this note and agrees with this plan of care. This note was dictated using voice recognition software and may contain errors or omissions
--- NOTE | 2018-07-25 11:50 | P.PCN_ITS ---
- Procedure Date: 07/25/18 Time: 11:40 Anesthesiologist:: aKcie Sexton APRN Complications:: None Pre-procedure Diagnosis:: Degenerative disc disease lumbar spine with lumbar radiculopathy symptoms Post-procedure Diagnosis:: Same Indications for Procedure:: Is a pleasant 77-year-old white female who presents today for intrathecal pain pump adjustment. Patient rates her pain today a 7 out of 10. Patient was given a 0.06 mg bolus in the office and did extremely well her pain went down to a 4 out of 10. We will switch her to periodic flow today. She denies side effects to her morphine medication. Patient [facility] #[id number] Physical Exam General: Alert and oriented x3, no acute distress, pleasant and cooperative, [on room air] Lungs: Resps E/U, Symmetrical chest expansion, Eyes: PERRL Musculoskeletal: Flexion and extension of lumbar spine somewhat guarded secondary to pain, deep tendon reflexes normal, strength in upper and lower extremities [5/5], antalgic gait noted Neurological: speech clear, property assistant equal, no gross sensory deficits Procedure Details:: Informed consent was obtained and the risk and benefits of the procedure were explained to the patient. The patient was taken to the procedure room where noninvasive monitoring was placed including noninvasive blood pressure cuff and pulse oximeter. Patient's pump was interrogated and reprogrammed. The infusion rate was we will change the patient to periodic flow of 0.055 mg every 2 hours for total daily dose of 0.65 mg of morphine a day. The patient tolerated the procedure well. Plan and Disposition:: I will see the patient back at her next intrathecal pain pump refill and reprogram she is been instructed to call the office if she has any issues prior to her next appointment. Dr. Martinez has reviewed this note and agrees with this plan of care. This note was dictated using voice recognition software and may contain errors or omissions
== END ==
PROVIDERS: PCP Family Medicine; Visit Provider Clinical Nurse Specialist Family Health
DX: M51.16 Intervertebral disc disorders with radiculopathy, lumbar region (principal)
CPT/HCPCS: 62368

== ENCOUNTER → 2018-08-08 09:36 | Outpatient (POV) | payer MEDICARE, BC, SELFPAY ==
[2018-08-08 09:50] VITALS: BP 142/62; PULSE 86; RESP 18; O2SAT 98; BMI 29.0
--- NOTE | 2018-08-08 11:14 | HMH.PAINSOAP ---
[facility] Pain Management SOAP Note Subjective:: Patient is a pleasant 77-year-old white female who presents today for follow-up. She was recently increased on her dosage for her intrathecal pain pump. Patient says that she did have relief with an increase in her medication, but she has a different type of pain now. Today, she is complaining of pain to her right lower back radiating into her right hip area. She she says that it worsens with ambulation. She rates her pain an 8 out of 10 today. ROS General: no recent weight change, no fever, no sleep disturbances Respiratory: no cough, no shortness of air, no recurring pulmonary infections Cardiovascular/Peripheral Vascular: No chest pain, No palpitations, no edema, no shortness of breath. Gastrointestinal: no incontinence, normal bowel movements reported Genitourinary: no incontinence Musculoskeletal: [Back pain, right hip pain] Psychiatric: normal mood/ affect, [denies depression], [denies anxiety] Neurological: [denies weakness in extremities], [denies balance issues] Objective:: Physical Exam General: Alert and oriented x3, no acute distress, pleasant and cooperative, [on room air] Lungs: Resps E/U, Symmetrical chest expansion, Eyes: PERRL Musculoskeletal: Flexion and extension of lumbar spine somewhat guarded secondary to pain, range of motion to right hip somewhat guarded secondary to pain deep tendon reflexes normal, strength in upper and lower extremities [5/5], antalgic gait noted, positive Karma test, positive Val's test, positive compression test Neurological: speech clear, product tester fiberglass equal, no gross sensory deficits Assessment:: Degenerative disc disease lumbar spine with lumbar radiculopathy, sacroiliitis, right greater trochanteric bursitis Plan:: We will schedule the patient for a right greater trochanteric bursa injection, along with an right SI joint injection. We will see her back after her injections and reassess her symptoms at that time. She is been instructed to call the office if she has any concerns prior to her next appointment. She will continue a home stretching program and NSAIDs. Chuy #[id number] has been reviewed and is appropriate. Dr. Martinez has reviewed this note and agrees with this plan of care. This note was dictated using voice recognition software and may contain errors or omissions.
--- NOTE | 2018-08-08 11:44 | P.CONS_ITS ---
[facility] Pain Management SOAP Note Subjective:: Patient is a pleasant 77-year-old white female who presents today for follow-up. She was recently increased on her dosage for her intrathecal pain pump. Patient says that she did have relief with an increase in her medication, but she has a different type of pain now. Today, she is complaining of pain to her right lower back radiating into her right hip area. She she says that it worsens with ambulation. She rates her pain an 8 out of 10 today. ROS General: no recent weight change, no fever, no sleep disturbances Respiratory: no cough, no shortness of air, no recurring pulmonary infections Cardiovascular/Peripheral Vascular: No chest pain, No palpitations, no edema, no shortness of breath. Gastrointestinal: no incontinence, normal bowel movements reported Genitourinary: no incontinence Musculoskeletal: [Back pain, right hip pain] Psychiatric: normal mood/ affect, [denies depression], [denies anxiety] Neurological: [denies weakness in extremities], [denies balance issues] Objective:: Physical Exam General: Alert and oriented x3, no acute distress, pleasant and cooperative, [on room air] Lungs: Resps E/U, Symmetrical chest expansion, Eyes: PERRL Musculoskeletal: Flexion and extension of lumbar spine somewhat guarded secondary to pain, range of motion to right hip somewhat guarded secondary to pain deep tendon reflexes normal, strength in upper and lower extremities [5/5], antalgic gait noted, positive Karma test, positive Val's test, positive compression test Neurological: speech clear, solder cream maker equal, no gross sensory deficits Assessment:: Degenerative disc disease lumbar spine with lumbar radiculopathy, sacroiliitis, right greater trochanteric bursitis Plan:: We will schedule the patient for a right greater trochanteric bursa injection, along with an right SI joint injection. We will see her back after her injections and reassess her symptoms at that time. She is been instructed to call the office if she has any concerns prior to her next appointment. She will continue a home stretching program and NSAIDs. Chuy #[id number] has been reviewed and is appropriate. Dr. Martinez has reviewed this note and agrees with this plan of care. This note was dictated using voice recognition software and may contain errors or omissions.
== END ==
PROVIDERS: PCP Family Medicine; Visit Provider Clinical Nurse Specialist Family Health
DX: M51.16 Intervertebral disc disorders with radiculopathy, lumbar region (principal); M46.1 Sacroiliitis, not elsewhere classified; M70.61 Trochanteric bursitis, right hip
CPT/HCPCS: 99212

== ENCOUNTER → 2018-09-10 13:00 | Outpatient (CLI) | payer MEDICARE, BC, SELFPAY ==
[2018-09-12 10:34] LABS: Occult Blood,Stool Positive (Negative)
== END ==
PROVIDERS: Visit Provider Internal Medicine Gastroenterology
DX: D50.9 Iron deficiency anemia, unspecified (principal)
CPT/HCPCS: 82272; G0328

== ENCOUNTER → 2018-09-11 06:30 | Outpatient (CLI) | payer MEDICARE, BC, SELFPAY ==
[2018-09-12 10:34] LABS: Occult Blood,Stool Positive (Negative)
== END ==
PROVIDERS: Visit Provider Internal Medicine Gastroenterology
DX: D50.9 Iron deficiency anemia, unspecified (principal)
CPT/HCPCS: 82272; G0328

== ENCOUNTER → 2018-09-12 09:29 | Outpatient (CLI) | payer MEDICARE, BC, SELFPAY ==
[2018-09-12 10:34] LABS: Occult Blood,Stool Positive (Negative)
== END ==
PROVIDERS: Visit Provider Internal Medicine Gastroenterology
DX: D50.9 Iron deficiency anemia, unspecified (principal)
CPT/HCPCS: 82272; G0328

== ENCOUNTER → 2018-09-12 09:42 | Outpatient (POV) | payer MEDICARE, BC, SELFPAY ==
[2018-09-12 09:56] VITALS: BP 131/65; PULSE 88; RESP 18; O2SAT 98; BMI 32.2
--- NOTE | 2018-09-12 10:04 | HMH.PAINSOAP ---
[facility] Pain Management SOAP Note Subjective:: She is a pleasant 77-year-old white female who presents today for follow-up after SI joint injection. She got 90% relief with her injection and did very well on her vacation. She rates her pain a 4 out of 10 today. She is an intrathecal pain pump which she states is doing really well she has no back pain. She states she walks 2 to 3 miles a day prior to that her pump she was unable to walk to her car. ROS General: no recent weight change, no fever, no sleep disturbances Respiratory: no cough, no shortness of air, no recurring pulmonary infections Cardiovascular/Peripheral Vascular: No chest pain, No palpitations, no edema, no shortness of breath. Gastrointestinal: no incontinence, normal bowel movements reported Genitourinary: no incontinence Musculoskeletal: Right SI joint pain Psychiatric: normal mood/ affect, Neurological: [denies weakness in extremities], [denies balance issues] Objective:: Physical Exam General: Alert and oriented x3, no acute distress, pleasant and cooperative, [on room air] Lungs: Resps E/U, Symmetrical chest expansion, Eyes: PERRL Musculoskeletal: Flexion and extension of lumbar spine somewhat guarded secondary to pain, deep tendon reflexes normal, strength in upper and lower extremities [5/5], [abnormal gait noted] positive SI joint compression test, positive Karma test and positive Jef's test on the right side Neurological: speech clear, anthropometrist equal, no gross sensory deficits Assessment:: Degenerative disc disease lumbar spine lumbar radiculopathy along with sacroiliitis Plan:: We will schedule repeat right SI joint injection given the efficacy of the last 20 believe it would be beneficial for the patient. She is been instructed to call the office if she has any issues prior to her next appointment. I will follow-up with her after injection reassess her at that time. Dr. Martinez has reviewed this note and agrees with this plan of care. This note was dictated using voice recognition software and may contain errors or omissions
== END ==
PROVIDERS: PCP Family Medicine; Visit Provider Clinical Nurse Specialist Family Health
DX: M46.1 Sacroiliitis, not elsewhere classified
CPT/HCPCS: 82272; 99212; G0328

== ENCOUNTER → 2018-10-30 08:53 | Outpatient (POV) | payer MEDICARE, BC, SELFPAY ==
[2018-10-30 10:18] VITALS: BP 112/57; PULSE 84; RESP 18; O2SAT 98; BMI 30.2
--- NOTE | 2018-10-30 11:00 | HMH.PAINSOAP ---
[facility] Pain Management SOAP Note Subjective:: Patient is a pleasant 77-year-old white female who presents today for follow-up. Patient has an intrathecal pain pump going at 0.46 mg of morphine a day. Patient is not having back pain however she is having bilateral SI joint pain. She is had SI joint injections in the past with 80% relief of her symptoms she would like to repeat this. She rates her pain today as a 5 out of 10. Patient has a positive Karma test SI joint compression test and Jef's test bilaterally. ROS General: no recent weight change, no fever, no sleep disturbances Respiratory: no cough, no shortness of air, no recurring pulmonary infections Cardiovascular/Peripheral Vascular: No chest pain, No palpitations, no edema, no shortness of breath. Gastrointestinal: no incontinence, normal bowel movements reported Genitourinary: no incontinence Musculoskeletal: Bilateral SI joint pain Psychiatric: normal mood/ affect Neurological: [denies weakness in extremities], [denies balance issues] Objective:: Physical Exam General: Alert and oriented x3, no acute distress, pleasant and cooperative, [on room air] Lungs: Resps E/U, Symmetrical chest expansion, Eyes: PERRL Musculoskeletal: Flexion and extension of lumbar spine somewhat guarded secondary to pain, deep tendon reflexes normal, strength in upper and lower extremities [5/5], [abnormal gait noted] Neurological: speech clear, down filler equal, no gross sensory deficits Assessment:: Degenerative disc disease lumbar spine with lumbar radiculopathy and sacroiliitis Plan:: We will schedule bilateral SI joint injections with the patient. Patient had good relief with these in the past. I will follow-up with the patient after her injection reassess her symptoms at that time she is been instructed to call the office if she has any issues prior to her next appointment. Dr. Martinez has reviewed this note and agrees with this plan of care. This note was dictated using voice recognition software and may contain errors or omissions [facility] History Medical History: Reports:: Atrial Fibrillation, Congestive Heart Failure, Coronary Artery Disease, Hyperlipidemia, Hypertension, Internal Pacemaker, Lung Disease (chronic bronchitis hx), Myocardial Infarction, Palpitations Denies:: Cancer, Diabetes Mellitus Type 1, Diabetes Mellitus Type 2, MRSA, Seizures *Have you ever received a pneumonia vaccine?: Yes *Have you received a flu vaccine this season?: No Other Medical History: Reports: Anemia, Cataracts. Denies: Blood Transfusion Reaction Other Surgeries: Yes: Angiogram, Appendectomy, Cardiac Catheterization, Hysterectomy-Total, Pacemaker, Other (pain pump implant) Amputation: No Fractures: No - *Social History Smoking Status: Former smoker Tobacco Type: cigarettes # Packs/Day (cigarettes): 1 Alcohol Intake: never Alcohol Intake Frequency:: holidays/special occasions only Substance Use Type: denies use *Occupational Status:: other Housing: house Household Members: children *Travel in the last 8 weeks: None Family Hx:: Coronary Artery Disease, Heart Attack
--- NOTE | 2018-10-30 11:04 | P.CONS_ITS ---
[facility] Pain Management SOAP Note Subjective:: Patient is a pleasant 77-year-old white female who presents today for follow-up. Patient has an intrathecal pain pump going at 0.46 mg of morphine a day. Patient is not having back pain however she is having bilateral SI joint pain. She is had SI joint injections in the past with 80% relief of her symptoms she would like to repeat this. She rates her pain today as a 5 out of 10. Patient has a positive Karma test SI joint compression test and Jef's test bilaterally. ROS General: no recent weight change, no fever, no sleep disturbances Respiratory: no cough, no shortness of air, no recurring pulmonary infections Cardiovascular/Peripheral Vascular: No chest pain, No palpitations, no edema, no shortness of breath. Gastrointestinal: no incontinence, normal bowel movements reported Genitourinary: no incontinence Musculoskeletal: Bilateral SI joint pain Psychiatric: normal mood/ affect Neurological: [denies weakness in extremities], [denies balance issues] Objective:: Physical Exam General: Alert and oriented x3, no acute distress, pleasant and cooperative, [on room air] Lungs: Resps E/U, Symmetrical chest expansion, Eyes: PERRL Musculoskeletal: Flexion and extension of lumbar spine somewhat guarded secondary to pain, deep tendon reflexes normal, strength in upper and lower extremities [5/5], [abnormal gait noted] Neurological: speech clear, jet dyeing machine tender equal, no gross sensory deficits Assessment:: Degenerative disc disease lumbar spine with lumbar radiculopathy and sacroiliitis Plan:: We will schedule bilateral SI joint injections with the patient. Patient had good relief with these in the past. I will follow-up with the patient after her injection reassess her symptoms at that time she is been instructed to call the office if she has any issues prior to her next appointment. Dr. Martinez has reviewed this note and agrees with this plan of care. This note was dictated using voice recognition software and may contain errors or omissions [facility] History Medical History: Reports:: Atrial Fibrillation, Congestive Heart Failure, Coronary Artery Disease, Hyperlipidemia, Hypertension, Internal Pacemaker, Lung Disease (chronic bronchitis hx), Myocardial Infarction, Palpitations Denies:: Cancer, Diabetes Mellitus Type 1, Diabetes Mellitus Type 2, MRSA, Seizures *Have you ever received a pneumonia vaccine?: Yes *Have you received a flu vaccine this season?: No Other Medical History: Reports: Anemia, Cataracts. Denies: Blood Transfusion Reaction Other Surgeries: Yes: Angiogram, Appendectomy, Cardiac Catheterization, Hysterectomy-Total, Pacemaker, Other (pain pump implant) Amputation: No Fractures: No - *Social History Smoking Status: Former smoker Tobacco Type: cigarettes # Packs/Day (cigarettes): 1 Alcohol Intake: never Alcohol Intake Frequency:: holidays/special occasions only Substance Use Type: denies use *Occupational Status:: other Housing: house Household Members: children *Travel in the last 8 weeks: None Family Hx:: Coronary Artery Disease, Heart Attack
== END ==
PROVIDERS: PCP Family Medicine; Visit Provider Clinical Nurse Specialist Family Health
DX: M51.16 Intervertebral disc disorders with radiculopathy, lumbar region (principal); M46.1 Sacroiliitis, not elsewhere classified
CPT/HCPCS: 99212

== ENCOUNTER → 2018-12-11 09:17 | Outpatient (POV) | payer MEDICARE, BC, SELFPAY ==
--- NOTE | 2018-12-11 09:54 | P.PCN_ITS ---
- Procedure Date: 12/11/18 Time: 09:52 Anesthesiologist:: Kacie Sexton APRN Complications:: None Pre-procedure Diagnosis:: Degenerative disc disease lumbar spine, sacroiliitis Post-procedure Diagnosis:: Same Indications for Procedure:: Patient is a pleasant 77-year-old white female who presents today for intrathecal pain pump adjustment. And also to schedule bilateral SI joint in [facility]. Patient has had SI joint injections in the past and gets up to 70% relief for several weeks. Patient rates her pain a 7 out of 10 today. She denies any side effects to her current morphine infusion 0.65 mg a day. We will increase that. Patient's NAGI #[id number] reviewed and appropriate. Physical Exam General: Alert and oriented x3, no acute distress, pleasant and cooperative, [on room air] Lungs: Resps E/U, Symmetrical chest expansion, Eyes: PERRL Musculoskeletal: Flexion and extension of lumbar spine somewhat guarded secondary to pain, deep tendon reflexes normal, strength in upper and lower extremities [5/5], [abnormal gait noted] positive Karma test positive SI joint compression test and positive Jef's test on the right side Neurological: speech clear, gas line servicer equal, no gross sensory deficits Procedure Details:: Informed consent was obtained and the risk and benefits of the procedure were explained to the patient. The patient was taken to the procedure room where noninvasive monitoring was placed including noninvasive blood pressure cuff and pulse oximeter. Patient's pump was interrogated and reprogrammed. The infusion rate was increased to 0.75 mg/day morphine. The patient tolerated the procedure well. Plan and Disposition:: We will schedule the patient for right SI joint injection. Patient's been instructed to call the office if she has any issues prior to her next appointment. Dr. Martinez has reviewed this note and agrees with this plan of care. This note was dictated using voice recognition software and may contain errors or omissions
[2018-12-11 10:11] VITALS: BP 109/73; PULSE 79; RESP 18; O2SAT 98; BMI 29.5
== END ==
PROVIDERS: PCP Family Medicine; Visit Provider Clinical Nurse Specialist Family Health
DX: M51.36 Other intervertebral disc degeneration, lumbar region (principal); M46.1 Sacroiliitis, not elsewhere classified
CPT/HCPCS: 62368

== ENCOUNTER → 2019-01-22 13:16 | Outpatient (POV) | payer MEDICARE, BC, SELFPAY ==
[2019-01-22 14:01] VITALS: BP 137/66; PULSE 87; RESP 18; O2SAT 99; BMI 29.2
--- NOTE | 2019-01-22 14:12 | HMH.PMPROC ---
- Procedure Date: 01/22/19 Time: 14:13 Anesthesiologist:: Kacie Sexton APRN Complications:: None Pre-procedure Diagnosis:: Degenerative disc disease lumbar spine with lumbar radiculopathy and sacroiliitis Post-procedure Diagnosis:: Same Indications for Procedure:: Patient is a pleasant 78-year-old white female who presents today for follow-up after SI joint injection. Patient would like to repeat this prior to [place]. Patient has an intrathecal pain pump however she states that it is not beneficial for her rating her pain an 8 out of 10. We will decrease her intrathecal infusion by 50% today and we will decrease it by another 50% at her next visit if she does not find any difference. Physical Exam General: Alert and oriented x3, no acute distress, pleasant and cooperative, [on room air] Lungs: Resps E/U, Symmetrical chest expansion, Eyes: PERRL Musculoskeletal: Flexion and extension of lumbar spine somewhat guarded secondary to pain, deep tendon reflexes normal, strength in upper and lower extremities [5/5], [abnormal gait noted] positive Karma test SI joint compression test and Jef's test bilaterally Neurological: speech clear, asphalt spreader operator equal, no gross sensory deficits Procedure Details:: Informed consent was obtained and the risk and benefits of the procedure were explained to the patient. The patient was taken to the procedure room where noninvasive monitoring was placed including noninvasive blood pressure cuff and pulse oximeter. Patient's pump was interrogated and reprogrammed. The infusion rate was decreased by 50% to 0.35 mg of morphine a day.. The patient tolerated the procedure well. Plan and Disposition:: We will see the patient back before [place] for SI joint injections. Patient's been instructed to call the office if she has any issues prior to her next appointment. She is also been instructed to call us if she has increasing pain from the decrease in her intrathecal infusion. Dr. Martinez has reviewed this note and agrees with this plan of care. This note was dictated using voice recognition software and may contain errors or omissions
--- NOTE | 2019-01-22 14:16 | P.PCN_ITS ---
- Procedure Date: 01/22/19 Time: 14:13 Anesthesiologist:: Kacie Sexton APRN Complications:: None Pre-procedure Diagnosis:: Degenerative disc disease lumbar spine with lumbar radiculopathy and sacroiliitis Post-procedure Diagnosis:: Same Indications for Procedure:: Patient is a pleasant 78-year-old white female who presents today for follow-up after SI joint injection. Patient would like to repeat this prior to [place]. Patient has an intrathecal pain pump however she states that it is not beneficial for her rating her pain an 8 out of 10. We will decrease her intrathecal infusion by 50% today and we will decrease it by another 50% at her next visit if she does not find any difference. Physical Exam General: Alert and oriented x3, no acute distress, pleasant and cooperative, [on room air] Lungs: Resps E/U, Symmetrical chest expansion, Eyes: PERRL Musculoskeletal: Flexion and extension of lumbar spine somewhat guarded secondary to pain, deep tendon reflexes normal, strength in upper and lower extremities [5/5], [abnormal gait noted] positive Karma test SI joint compression test and Jef's test bilaterally Neurological: speech clear, table saw operator equal, no gross sensory deficits Procedure Details:: Informed consent was obtained and the risk and benefits of the procedure were explained to the patient. The patient was taken to the procedure room where noninvasive monitoring was placed including noninvasive blood pressure cuff and pulse oximeter. Patient's pump was interrogated and reprogrammed. The infusion rate was decreased by 50% to 0.35 mg of morphine a day.. The patient tolerated the procedure well. Plan and Disposition:: We will see the patient back before [place] for SI joint injections. Patient's been instructed to call the office if she has any issues prior to her next appointment. She is also been instructed to call us if she has increasing pain from the decrease in her intrathecal infusion. Dr. Martinez has reviewed this note and agrees with this plan of care. This note was dictated using voice recognition software and may contain errors or omissions
== END ==
PROVIDERS: PCP Family Medicine; Visit Provider Clinical Nurse Specialist Family Health
DX: M51.16 Intervertebral disc disorders with radiculopathy, lumbar region (principal); M46.1 Sacroiliitis, not elsewhere classified
CPT/HCPCS: 62368

== ENCOUNTER → 2019-03-02 08:44 | Outpatient (POV) | payer MEDICARE, BC, SELFPAY ==
[2019-03-02 09:36] VITALS: BP 136/45; PULSE 80; RESP 18; O2SAT 96; BMI 29.5
--- NOTE | 2019-03-02 10:05 | P.CONS_ITS ---
[facility] Pain Management SOAP Note Subjective:: This patient is a pleasant 78-year-old white female who we are treating for low back pain with lumbar radicular symptoms. She is not doing well with her intrathecal morphine pain pump. She continues to have significant low back pain and leg pain. She also has significant side effects with night terrors and waking up in the middle the night. She does not note any nausea or itching she does note some constipation. She is currently on intrathecal morphine at 0.5 mg/day. Objective:: Alert and oriented x3 no acute distress. Patient does have an antalgic gait. Motor strength of the lower extremities is 5/5. There is no gross sensory deficit. Assessment:: Degenerative disc disease of lumbar spine with lumbar radiculopathy symptoms Plan:: Since she is not doing well with her intrathecal morphine pump. We will switch her over to intrathecal Dilaudid 1 mg per mall to start at 0.1 mg/day. Hopefully this will provide her better pain relief with less side effects. [facility] History I have reviewed the patient's past medical history: Yes Medical History: Reports:: Atrial Fibrillation, Cancer (skin), Congestive Heart Failure, Coronary Artery Disease, Hyperlipidemia, Hypertension, Internal Pacemaker, Lung Disease (chronic bronchitis hx), Myocardial Infarction, Palpitations Denies:: Diabetes Mellitus Type 1, Diabetes Mellitus Type 2, MRSA, Seizures *Have you ever received a pneumonia vaccine?: No *Have you received a flu vaccine this season?: Yes Other Medical History: Reports: Anemia, Arthritis, Cataracts. Denies: Blood Transfusion Reaction Other Surgeries: Yes: Angiogram, Appendectomy, Cardiac Catheterization, Cholecystectomy, Hysterectomy-Total, Pacemaker, Other (pain pump implant) Amputation: No Fractures: No - *Social History Smoking Status: Current every day smoker Tobacco Type: cigarettes # Packs/Day (cigarettes): 1 Alcohol Intake: current Alcohol Intake Frequency:: holidays/special occasions only Substance Use Type: denies use *Occupational Status:: retired Housing: house Household Members: children *Travel in the last 8 weeks: None Family Hx:: Coronary Artery Disease, Heart Attack
== END ==
PROVIDERS: PCP Family Medicine; Visit Provider Anesthesiology
DX: M51.16 Intervertebral disc disorders with radiculopathy, lumbar region (principal); I48.91 Unspecified atrial fibrillation; I25.10 Atherosclerotic heart disease of native coronary artery without angina pectoris; E78.5 Hyperlipidemia, unspecified; I10 Essential (primary) hypertension; J98.4 Other disorders of lung; Z95.810 Presence of automatic (implantable) cardiac defibrillator
CPT/HCPCS: 99212

== ENCOUNTER → 2019-03-15 10:19 | Outpatient (POV) | payer MEDICARE, BC, SELFPAY ==
[2019-03-15 10:44] VITALS: BP 141/58; PULSE 79; RESP 18; O2SAT 99; BMI 29.5
--- NOTE | 2019-03-15 10:45 | [facility].PMPROC ---
- Procedure Date: 03/15/19 Time: 10:45 Anesthesiologist:: Iraida Lucio APRN Complications:: None Pre-procedure Diagnosis:: Degenerative disc disease lumbar spine with lumbar radiculopathy symptoms Post-procedure Diagnosis:: Same Indications for Procedure:: Degenerative degenerative disc disease lumbar spine with lumbar radiculopathy symptoms degenerative disc disease lumbar spine with lumbar radiculopathy symptoms patient is a pleasant 78-year-old white female who presents today for intrathecal pain pump reprogram. She is being treated for low back pain with lumbar radiculopathy symptoms. Patient has changed medications and her intrathecal therapy morphine to Dilaudid. She felt that she did not get enough relief with morphine. She currently has Dilaudid in her pump. She rates her pain a 10 out of 10 today. She says she is continuing to have pain it isFeel as though her intra-thecal therapy is working for her. Patient says she would like to have her intrathecal catheter down today and discuss possible surgery with her neurosurgeon. Patient did have a long discussion concerning oral medications. She understands that she cannot take oral medications well receiving intrathecal therapy. She is in agreement to this. We will decrease her dose today. I did offer to turn the pump off today, however, patient would like to continue with a very low dose at this time. She is currently on Dilaudid at 0.1 mg/day. Physical exam General: Alert and oriented x3, no acute distress, pleasant and cooperative, [on room air] Lungs: Respirations even and unlabored, symmetrical chest expansion Eyes: PERRL Musculoskeletal: Flexion and extension of lumbar spine somewhat guarded secondary to pain, deep tendon reflexes normal, strength in upper and lower extremities [5/5], [abnormal gait noted] Neurological: Speech clear, book illustrator equal, no gross sensory deficit Procedure Details:: informed consent was obtained and the risk and benefits of the procedure were explained to the patient. Patient was taken to the procedure room where noninvasive monitoring was placed including noninvasive blood pressure cuff and pulse oximeter. Patient's pump was interrogated and was reprogrammed to Dilaudid at 0.05 mg/day. The patient tolerated the procedure well with no complications. Plan and Disposition:: We will see the patient back in the clinic in 1 month to reassess her symptoms. She has been instructed to contact the clinic if she has any concerns before next appointment. Dr. Martinez has reviewed this note and agrees with this plan of care. This note was dictated using voice recognition software and make contain errors or omissions.
== END ==
PROVIDERS: PCP Family Medicine; Visit Provider Clinical Nurse Specialist Family Health
DX: M51.16 Intervertebral disc disorders with radiculopathy, lumbar region (principal)
CPT/HCPCS: 62368

== ENCOUNTER 2019-03-27 20:02 | Observation (INO) ==
--- NOTE | 2019-03-27 20:29 | Emergency Department Note ---
ED Disposition Clinical Impression: Hypokalemia Chest pain Qualifiers: Chest pain type: precordial pain Qualified Code(s): R07.2 - Precordial pain Disposition: Admitted as Observation Condition on Discharge: Good - Critical Care Critical Care Time: No Attestation: On 03/27/19, the high probability of a clinically significant, sudden or life threatening deterioration of the following system(s) required my full and direct attention, intervention and personal management. The time I documented below is in addition to time spent performing reported procedures but includes the following listed in this critical care notation. Medical Decision Making - Medical Records Medical records reviewed: Yes: I reviewed the patient's medical records. - [place] Inquiry Pt receiving controlled substance: No Vital Signs: 03/27/19 20:03 03/27/19 20:07 Temperature Source Oral Pulse Rate [Right Brachial] 97 H 113 H Respiratory Rate 18 16 Blood Pressure [Right Arm] 134/54 L 108/54 L Blood Pressure Mean [Right Arm] 80 72 Blood Pressure Source [Right Arm] Automatic Cuff Automatic Cuff Blood Pressure Position [Right Arm] Sitting Sitting 02 Sat by Pulse Oximetry 94 L 93 L Oxygen Delivery Method Room Air Room Air - Lab Data Lab results reviewed: Yes: I reviewed the patient's lab results. Lab Results 03/27/19 20:10: WBC 10.2, RBC 3.90 L, Hgb 12.1 L, Hct 37.4, MCV 95.8, MCH 31.1, MCHC 32.4, RDW 14.1, Plt Count 313, MPV 8.0, Neut % (Auto) 82.7 H, Lymph % (Auto ) 12.3, [place] % (Auto) 4.1, Eos % (Auto) 0.6, Baso % (Auto) 0.4, Neut # (Auto) 8.5 H, Lymph # (Auto) 1.3, [place] # (Auto) 0.4, Eos # (Auto) 0.1, Baso # (Auto) 0.1, ESR > 140 H 03/27/19 20:10: Sodium 143, Potassium 2.7 L*, Chloride 104, Carbon Dioxide 28, Anion Gap 13.7, BUN 14, Creatinine 0.99, Estimated Creat Clear 51, Estimated GFR 54 L, Est GFR ( Amer) 66, Glucose 145 H, Calcium 8.9, Troponin I < 0.02, C-Reactive Protein 2.7 H Result diagrams: 03/27/19 20:10 03/27/19 20:10 Orders (Tests/Meds): ED MEDICATIONS Generic Name Dose Route Start Last Admin Trade Name Freq PRN Reason Stop Dose Admin Sodium Chloride 1,000 mls @ 999 mls/hr 03/27/19 20:15 03/27/19 20:19 Sod Chlor 0.9% 1000ml Bag IV 03/27/19 21:15 999 mls/hr .Q1H1M SANTHOSH Administration Discontinued Medications Generic Name Dose Route Start Last Admin Trade Name Freq PRN Reason Stop Dose Admin Aspirin 81 mg 03/27/19 20:12 03/27/19 20:17 Aspirin 81mg Chewable Tablet PO 03/27/19 20:13 Not Given ONCE ONE Aspirin 324 mg 03/27/19 20:18 03/27/19 20:19 Aspirin 81mg Chewable Tablet PO 03/27/19 20:19 324 mg ONCE ONE Administration Nitroglycerin 0.4 mg 03/27/19 20:12 03/27/19 20:16 Nitrostat 0.4mg Sl Tablet SL 03/27/19 20:13 0.4 mg ONCE ONE Administration Potassium Chloride 40 meq 03/27/19 20:46 03/27/19 20:51 Klor-Con 20meq Tablet PO 03/27/19 20:47 40 meq ONCE ONE Administration ORDERS Category Date Time Status XR chest 2V Stat Exams 03/27/19 20:11 Taken Troponin I Q3H Lab 03/27/19 23:15 Ordered Troponin I Q3H Lab 03/28/19 02:15 Ordered Urinalysis and Microscopic Stat Lab 03/27/19 20:11 Ordered - ECG Data Tracing #1 Normal Sinus Rhythm: Yes Ischemic changes: non-specific ST-T wave changes - Physician Consults Physician Consulted: carmen Reason -: Admission Additional Consult: parker Reason -: Pt condition Chest Pain HPI - General Chief Complaint: Chest Pain Stated Complaint: Chest pain Time Seen by Provider: 03/27/19 20:10 Mode of Arrival: Wheelchair Source of Information: Patient, Relative, Medical Record Limitations: No Limitations Description of Symptoms (Recalled from ER Triage Doc. by RN): Patient reports having some chest discomfort and tachycardia x4 days off and on. Patient reports she was at dinner tonight with her grand-daughter when she became tachy again and started to have crushing chest pain. Grand-daughter reports her HR at dinner was 130 and patient had revelaed her to her that she had already taken 2 nitro earlier in the day today for the pain so she brought her in to be evaluated. - History of Present Illness HPI narrative: pt with episodes of chest pain and palpitations w/o syncope -hx of pacer and cardiac stents - MD complaint: chest pain indicative of cardiac Onset (ago): day(s) Duration: intermittent Activity at onset: during rest Pain location: substernal Severity: moderate Quality: dull Pain radiation: LUE Relieving factors: nitroglycerin Risk Factors for CAD: Hypertension, Family Hx of CAD Treatments prior to or on arrival for Cardiac Chest Pain: nitroglycerin - MIKALA Score for Non-Stemi Age of Patient: 70-79 years old Heart Rate: 90-109 bpm Systolic Blood Pressure: 120-139 mmhg Serum Creatinine: 0.80-1.19 mg/dl CHF [place] Class: I-No CHF Other Risk Factors: None Non-Stemi Risk Score: 131 - Related Data Prior Cardiac Testing/Procedures: Stenting On Oral Contraceptives: No Home Medications Medication Instructions Recorded Confirmed clopidogrel 75 mg tablet 75 mg PO DAILY 02/17/17 03/27/19 albuterol sulfate 90 mcg/actuation 2 puff INHALATION Q6H PRN 02/18/17 03/27/19 aerosol inhaler budesonide-formoterol HFA 160 2 puff INHALATION Q12H PRN 02/18/17 03/27/19 mcg-4.5 mcg/actuation aerosol inhaler multivitamin 1 tab PO DAILY 02/18/17 03/27/19 nitroglycerin 0.4 mg sublingual 0.4 mg SUBLINGUAL NEEDED PRN 02/18/17 03/27/19 tablet Escitalopram Oxalate [Lexapro] 20 mg PO DAILY 02/24/17 03/27/19 Pramipexole Di-HCl [Mirapex] 2 mg PO HS 02/24/17 03/27/19 pantoprazole 40 mg tablet,delayed 40 mg PO BID tab 05/24/17 03/27/19 release Biotin 10,000 mcg PO DAILY 05/21/18 03/27/19 potassium chloride 20 mEq 20 meq PO DAILY tab 07/05/18 03/27/19 tablet,extended release Losartan Potassium 25 mg PO DAILY 07/07/18 03/27/19 Metoprolol Succinate 100 mg PO DAILY 07/07/18 03/27/19 Previous Rx's Medication Instructions Recorded atorvastatin 40 mg tablet 40 mg PO HS #90 tab 07/04/18 spironolactone 25 mg tablet 25 mg PO DAILY #90 tab 12/22/18 furosemide 40 mg tablet 40 mg PO TID PRN #90 tab 03/16/19 Allergies Allergy/AdvReac Type Severity Reaction Status Date / Time No Known Allergies Allergy Verified 03/27/19 20:15 [facility] History - Hepatitis A Screen Drug use history?: No High risk sexual behaviors?: No History of sexually transmitted infection?: No Currently employed?: No Childcare worker?: No Do you have indoor plumbing?: Yes Do you have electricity?: Yes Attestation statement:: This patient has been screened for Hepatitis A risk factors. I have reviewed the patient's past medical history: Yes Medical History: Reports:: Atrial Fibrillation, Cancer (skin), Congestive Heart Failure, Coronary Artery Disease, Hyperlipidemia, Hypertension, Internal Pacemaker, Lung Disease (chronic bronchitis hx), Myocardial Infarction, Palpitations Denies:: Diabetes Mellitus Type 1, Diabetes Mellitus Type 2, MRSA, Seizures Other Medical History: Reports: Anemia, Arthritis, Cataracts. Denies: Blood Transfusion Reaction Other Surgeries: Yes: Angiogram, Appendectomy, Cardiac Catheterization, Cholecystectomy, Hysterectomy-Total, Pacemaker, Other (intrathecal pain pump implant) Amputation: No Fractures: No - Social History Smoking Status: Current every day smoker Tobacco Type: cigarettes # Packs/Day (cigarettes): 1 Alcohol Intake: never Alcohol Intake Frequency:: holidays/special occasions only Substance Use Type: denies use Occupational Status: retired Housing: house Household Members: children Family Hx:: Coronary Artery Disease, Heart Attack ROS Obtained: Yes All systems reviewed & no additional complaints - Constitutional Constitutional: Denies fever(s) - Eyes Eyes: Denies change in vision - ENT Ears, Nose, Mouth, and Throat: Denies sore throat - Cardiovascular Cardiovascular: Reports chest pain, Reports radiating jaw, neck or arm pain, Reports rapid heart rate - Respiratory Respiratory: No cough - Gastrointestinal Gastrointestingal: Denies: vomiting - Genitourinary Female Genitourinary: Denies hematuria - Musculoskeletal Musculoskeletal: Denies joint swelling - Integumentary/Breasts Skin/Breast: Denies rash - Neurologic Neurologic: Denies seizure-like activity Physical Exam - General General appearance: alert - Head Head exam: normocephalic - Eye Eye exam: Present: PERRL, EOMI - ENT ENT exam: Present: mucous membranes moist - Neck Neck exam: Present: trachea midline - Respiratory Respiratory exam: Present: normal lung sounds bilaterally. Absent: respiratory distress - Cardiovascular Cardiovascular exam: Present: regular rate, systolic murmur, +S4 - Abdominal Exam Abdominal exam: Present: soft - Extremities Exam Extremities exam: Absent: calf tenderness - Neurological Exam Neurological exam: Present: alert, CN II-XII intact - Psychiatric Psychiatric exam: Present: normal affect - Skin Skin exam: Absent: rash
[2019-03-27 20:32] LABS: Basophils # 0.1 K/mm3 (0-0.2); Basophils % 0.4 % (0.1-2.0); Eosinophils # 0.1 K/mm3 (0.0-0.4); Eosinophils % 0.6 % (0.1-12.0); Hematocrit 37.4 % (37.0-47.0); Hemoglobin 12.1 g/dL (12.2-16.2); Lymphocytes # 1.3 K/mm3 (0.7-4.5); Lymphocytes % 12.3 % (10-50); Mean Corpuscular HGB Conc 32.4 g/dL (31.8-35.4); Mean Corpuscular Volume 95.8 fl (81-99); Monocytes # 0.4 K/mm3 (0.1-1.0); Monocytes % 4.1 % (1.7-9.3); Neutrophils # 8.5 K/mm3 (1.8-7.8); Neutrophils % 82.7 % (37.0-80.0); Platelet Count 313 K/mm3 (142-424); Red Cell Distribution Width 14.1 % (11.5-17.5); White Blood Count 10.2 K/mm3 (4.8-10.8)
[2019-03-27 20:41] LABS: Anion Gap 13.7 mEq/L (5-15); Blood Urea Nitrogen 14 mg/dL (7-18); C-Reactive Protein 2.7 mg/dL (0.0-0.9); Calcium 8.9 mg/dL (8.5-10.1); Carbon Dioxide 28 mmol/L (21.0-32.0); Chloride 104 mmol/L (98-107); Glucose 145 mg/dL (74-106); Sodium 143 mmol/L (137-145)
[2019-03-27 21:21] LABS: Erythrocyte Sedimentation Rate > 140 mm/hr (0-30)
[2019-03-28 01:06] LABS: Microscopic, Urine URINE MICROSCOPIC (MICROSCOPIC)
[2019-03-28 01:11] LABS: Appearance,Urine CLEAR (Clear); Bilirubin,Urine Negative (Negative); Blood, Urine TRACE-L (Negative); Color,Urine YELLOW (Yellow); Glucose,Urine (UA) Negative (Negative); Ketones,Urine Negative (Negative); Leukocyte Esterase,Urine Negative (Negative); PH,Urine 5.5 (5.0-8.5); Protein,Urine Negative (Negative); Specific Gravity, Urine 1.025 (1.005-1.030); Urobilinogen,Urine 0.2 EU/dl (0.2)
[2019-03-28 01:17] LABS: Bacteria,Urine Trace /lpf
[2019-03-28 06:49] LABS: Basophils % 0.4 % (0.1-2.0); Eosinophils # 0.1 K/mm3 (0.0-0.4); Eosinophils % 1.4 % (0.1-12.0); Hematocrit 32.4 % (37.0-47.0); Lymphocytes # 1.7 K/mm3 (0.7-4.5); Mean Corpuscular HGB Conc 32.3 g/dL (31.8-35.4); Mean Corpuscular Volume 96.5 fl (81-99); Mean Platelet Volume 7.8 fl (7.4-10.4); Monocytes # 0.6 K/mm3 (0.1-1.0); Monocytes % 7.6 % (1.7-9.3); Neutrophils # 4.9 K/mm3 (1.8-7.8); Neutrophils % 67.7 % (37.0-80.0); Platelet Count 272 K/mm3 (142-424); Red Blood Count 3.36 M/mm3 (4.20-5.40); Red Cell Distribution Width 14.2 % (11.5-17.5); White Blood Count 7.2 K/mm3 (4.8-10.8)
[2019-03-28 07:10] LABS: Albumin Level 2.5 g/dL (3.4-5.0); Albumin/Globulin Ratio 0.7 (1.1-1.8); Anion Gap 10.2 mEq/L (5-15); Bilirubin,Total 0.3 mg/dL (0.2-1.0); Calcium 8.2 mg/dL (8.5-10.1); Chol/HDL Ratio 2.5 (1-3.5); Globulin 3.7 gm/dl (1.3-3.2); Total Protein,Serum 6.2 g/dL (6.4-8.2)
--- NOTE | 2019-03-28 07:14 | H&P/Discharge Summary ---
General - General Admission date:: 03/27/19 Discharge date: 03/28/19 *Admission Date: 03/28/19 *Chief complaint: Chest pain *History of present illness: 78-year-old female with at least 1 week of episodes of recurring retrosternal chest discomfort and sensation of racing heart that would occasionally radiate to the left shoulder and arm and was relieved with nitroglycerin presented to the emergency department at the encouragement of a friend. She reports there was "may be" associated shortness of breath but no nausea or diaphoresis patient has known history of coronary artery disease with last heart catheterization occurring 1 year ago at which point patient had patent stents and medical management was recommended. Patient also has an AICD which is regularly interrogated with last interrogation occurring in January. Patient had been in her normal state of health over the last year when she developed these chest pains. In the emergency department the patient was also found to be hypokalemic. She does take Lasix 3 times daily. Patient was admitted for rule out of LA and cardiology consultation. [facility] History I have reviewed the patient's past medical history: Yes Medical History: Reports:: Atrial Fibrillation, Cancer (skin cancer), Congestive Heart Failure, Coronary Artery Disease, Hyperlipidemia, Hypertension, Internal Pacemaker, Lung Disease (chronic bronchitis hx), Myocardial Infarction, Palpitations Denies:: Diabetes Mellitus Type 1, Diabetes Mellitus Type 2, MRSA, Seizures *Have you ever received a pneumonia vaccine?: No *Have you received a flu vaccine this season?: Yes Other Medical History: Reports: Anemia, Arthritis, Cataracts (removed 2012). Denies: Blood Transfusion Reaction Laterality Cases: Bilateral: Cataract, Tonsillectomy, Other Other Surgeries: Yes: Angiogram, Appendectomy, Cardiac Catheterization, Cholecystectomy, Hysterectomy-Total, Pacemaker, Skin Cancer Excision, Other (intrathecal pain pump implant) Amputation: No Fractures: Yes (ankle) - *Social History Educational Level: Completed GED/General Educational Development Smoking Status: Former smoker Tobacco Type: cigarettes # Packs/Day (cigarettes): 1 #Yrs smoked (if former smoker): 30 Smoking End Date: 2013 Alcohol Intake: current Alcohol Intake Frequency:: 0-2 drinks per day Substance Use Type: denies use *Occupational Status:: retired Housing: house Household Members: children *Travel in the last 8 weeks: None Family Hx:: Cancer, Heart Attack Review of Systems - Constitutional Denies anorexia, Denies body ache(s), Denies chills - *Cardiovascular Reports chest pain, Reports chest pain at rest - *Respiratory Denies change in phlegm color, Denies chest congestion, Denies cough - *Gastrointestinal Denies abdominal pain, Denies belching - *Musculoskeletal Reports joint pain (Chronic back pain) - *Neurologic Denies seizure-like activity Exam Vital signs and Labs for Last 24 Hours: Temp Pulse Resp BP Pulse Ox 98.0 F 86 19 122/49 L 95 03/28/19 04:00 03/28/19 04:00 03/28/19 04:00 03/28/19 04:00 03/28/19 04:00 Laboratory Results - last 24 hr 03/27/19 20:10: WBC 10.2, RBC 3.90 L, Hgb 12.1 L, Hct 37.4, MCV 95.8, MCH 31.1, MCHC 32.4, RDW 14.1, Plt Count 313, MPV 8.0, Neut % (Auto) 82.7 H, Lymph % (Auto) 12.3, [place] % (Auto) 4.1, Eos % (Auto) 0.6, Baso % (Auto) 0.4, Neut # (Auto) 8.5 H, Lymph # (Auto) 1.3, [place] # (Auto) 0.4, Eos # (Auto) 0.1, Baso # (Auto) 0.1, ESR > 140 H 03/27/19 20:10: Sodium 143, Potassium 2.7 L*, Chloride 104, Carbon Dioxide 28, Anion Gap 13.7, BUN 14, Creatinine 0.99, Estimated Creat Clear 51, Estimated GFR 54 L, Est GFR ( Amer) 66, Glucose 145 H, Calcium 8.9, Troponin I < 0.02, C-Reactive Protein 2.7 H 03/27/19 23:20: Troponin I < 0.02 03/28/19 00:51: Urine Color Yellow, Urine Appearance Clear, Urine pH 5.5, Ur Specific [place] 1.025, Urine Protein Negative, Urine Glucose (UA) Negative, Urine Ketones Negative, Urine Blood Trace-l, Urine Nitrate Negative, Urine Bilirubin Negative, Urine Urobilinogen 0.2, Ur Leukocyte Esterase Negative, Urine WBC 3-5, Ur Squamous Epith Cells 5-10, Urine Bacteria Trace 03/28/19 02:06: Troponin I < 0.02 03/28/19 06:13: WBC 7.2 D, RBC 3.36 L, Hct 32.4 L, MCV 96.5, MCH 31.1, MCHC 32.3, RDW 14.2, Plt Count 272, MPV 7.8, Neut % (Auto) 67.7, Lymph % (Auto) 23.0, [place] % (Auto) 7.6, Eos % (Auto) 1.4, Baso % (Auto) 0.4, Neut # (Auto) 4.9, Lymph # (Auto) 1.7, [place] # (Auto) 0.6, Eos # (Auto) 0.1, Baso # (Auto) 0.0 I & O for Last 24 hours: Intake & Output 03/25/19 03/26/19 03/27/19 03/28/19 11:59 11:59 11:59 11:59 Intake Total 298 / 298 Output Total 100 / 100 Balance 198 / 198 Weight 153 lb 1 oz Narrative: Patient is laying comfortably in bed and is in no distress. HEENT exam is grossly normal. Neck is without lymphadenopathy. Lungs are clear to auscultation. Heart has a regular rate and rhythm. Abdomen is soft, nontender, nondistended. Lower extremities are without edema. EKG shows a left bundle branch block which is new when compared to previous EKGs from 2019 and 2018. Hospital Course Hospital Course: Patient was admitted and ruled out for LA. Echocardiogram was ordered. Cardiology was consulted. Concern was raised over compliance with medications. AICD was interrogated and revealed some tachycardia but no arrythmia. Importance of taking meds as directed was stressed. Patient was discharged to home Potassium was replaced both orally and intravenously. Results Labs on day of discharge: Labs from last 24 hours 03/28/19 03/28/19 03/28/19 06:13 02:06 00:51 WBC 7.2 D RBC 3.36 L Hgb Hct 32.4 L MCV 96.5 MCH 31.1 MCHC 32.3 RDW 14.2 Plt Count 272 MPV 7.8 Neut % (Auto) 67.7 Lymph % (Auto) 23.0 [place] % (Auto) 7.6 Eos % (Auto) 1.4 Baso % (Auto) 0.4 Neut # (Auto) 4.9 Lymph # (Auto) 1.7 [place] # (Auto) 0.6 Eos # (Auto) 0.1 Baso # (Auto) 0.0 ESR Sodium Potassium Chloride Carbon Dioxide Anion Gap BUN Creatinine Estimated Creat Clear Estimated GFR Est GFR ( Amer) Glucose Calcium Troponin I < 0.02 C-Reactive Protein Urine Color Yellow Urine Appearance Clear Urine pH 5.5 Ur Specific [place] 1.025 Urine Protein Negative Urine Glucose (UA) Negative Urine Ketones Negative Urine Blood Trace-l Urine Nitrate Negative Urine Bilirubin Negative Urine Urobilinogen 0.2 Ur Leukocyte Esterase Negative Urine WBC 3-5 Ur Squamous Epith Cells 5-10 Urine Bacteria Trace 03/27/19 03/27/19 03/27/19 23:20 20:10 20:10 WBC 10.2 RBC 3.90 L Hgb 12.1 L Hct 37.4 MCV 95.8 MCH 31.1 MCHC 32.4 RDW 14.1 Plt Count 313 MPV 8.0 Neut % (Auto) 82.7 H Lymph % (Auto) 12.3 [place] % (Auto) 4.1 Eos % (Auto) 0.6 Baso % (Auto) 0.4 Neut # (Auto) 8.5 H Lymph # (Auto) 1.3 [place] # (Auto) 0.4 Eos # (Auto) 0.1 Baso # (Auto) 0.1 ESR > 140 H Sodium 143 Potassium 2.7 L* Chloride 104 Carbon Dioxide 28 Anion Gap 13.7 BUN 14 Creatinine 0.99 Estimated Creat Clear 51 Estimated GFR 54 L Est GFR ( Amer) 66 Glucose 145 H Calcium 8.9 Troponin I < 0.02 < 0.02 C-Reactive Protein 2.7 H Urine Color Urine Appearance Urine pH Ur Specific [place] Urine Protein Urine Glucose (UA) Urine Ketones Urine Blood Urine Nitrate Urine Bilirubin Urine Urobilinogen Ur Leukocyte Esterase Urine WBC Ur Squamous Epith Cells Urine Bacteria DS: Diagnosis - Discharge Diagnosis (1) Left bundle branch block (LBBB) on electrocardiogram Status: Acute (2) Chest pain Status: Acute (3) Hypokalemia Status: Acute Discharge Plan - Patient Discharge Instructions ACTIVITY: Continue current activity DIET: continue same diet Patient Instructions: DI for Tachycardia, DI for Chest Pain - Follow up Plan Follow up with: Sebastián Sawant MD [Staff Physician] - 04/06/19 11:40 am Heath Roegrs MD [Primary Care Provider] - 04/05/19 10:15 am Disposition: Home, Self-Longterm Medications: Home Medications Medication Instructions Recorded Confirmed Type clopidogrel 75 mg tablet 75 mg PO DAILY 02/17/17 03/27/19 History albuterol sulfate 90 mcg/actuation 2 puff INHALATION Q6H PRN 02/18/17 03/27/19 History aerosol inhaler multivitamin 1 tab PO DAILY 02/18/17 03/27/19 History nitroglycerin 0.4 mg sublingual 0.4 mg SUBLINGUAL NEEDED PRN 02/18/17 03/27/19 History tablet Escitalopram Oxalate [Lexapro] 20 mg PO DAILY 02/24/17 03/27/19 History Pramipexole Di-HCl [Mirapex] 2 mg PO HS 02/24/17 03/27/19 History pantoprazole 40 mg tablet,delayed 40 mg PO BID tab 05/24/17 03/27/19 History release Biotin 10,000 mcg PO DAILY 05/21/18 03/27/19 History atorvastatin 40 mg tablet 40 mg PO HS #90 tab 07/04/18 03/27/19 Rx potassium chloride 20 mEq 20 meq PO DAILY tab 07/05/18 03/27/19 History tablet,extended release Losartan Potassium 25 mg PO DAILY 07/07/18 03/27/19 History spironolactone 25 mg tablet 25 mg PO DAILY #90 tab 12/22/18 03/27/19 Rx furosemide 40 mg tablet 40 mg PO TID PRN #90 tab 03/16/19 03/27/19 Rx Metoprolol Succinate 25 mg PO DAILY 03/28/19 03/28/19 History Prescriptions/Medication Reconciliation: Continued clopidogrel 75 mg tablet 75 mg PO DAILY albuterol sulfate 90 mcg/actuation aerosol inhaler 2 puff INHALATION Q6H PRN PRN Reason: Dyspnea nitroglycerin 0.4 mg sublingual tablet 0.4 mg SUBLINGUAL NEEDED PRN PRN Reason: Chest Pain pantoprazole 40 mg tablet,delayed release 40 mg PO BID tab atorvastatin 40 mg tablet 40 mg PO HS #90 tab potassium chloride 20 mEq tablet,extended release 20 meq PO DAILY tab furosemide 40 mg tablet 40 mg PO TID PRN #90 tab PRN Reason: Fluid multivitamin 1 tab PO DAILY spironolactone 25 mg tablet 25 mg PO DAILY #90 tab Escitalopram Oxalate [Lexapro] 20 mg PO DAILY Losartan Potassium 25 mg PO DAILY Pramipexole Di-HCl [Mirapex] 2 mg PO HS Biotin 10,000 mcg PO DAILY Metoprolol Succinate 25 mg PO DAILY - Problem Reconciliation Problems Reviewed?: Yes
--- NOTE | 2019-03-28 07:16 | Pharmacy Consult Notes ---
[facility] Pharmacy VTE Monitoring - Patient Demographics Admission date: 03/28/19 Report Date: 03/28/19 Time: 07:15 Allergies/Adverse Reactions: Patient Allergies No Known Allergies Allergy (Verified 03/27/19 20:15) Height: 1.52 m Weight: 69.428 kg Patient Problems: Current Active Problems Hypokalemia (Acute) Chest pain (Acute) - VTE Risk Labs: VTE Related Lab Results Hgb 12.1 g/dL (12.2-16.2) L 03/27/19 20:10 Hct 32.4 % (37.0-47.0) L 03/28/19 06:13 Plt Count 272 K/mm3 (142-424) 03/28/19 06:13 BUN 14 mg/dL (7-18) 03/27/19 20:10 Creatinine 0.99 mg/dL (0.55-1.02) 03/27/19 20:10 Estimated Creat Clear 51 mL/min (50-200) 03/27/19 20:10 Was VTE Risk Assessment Performed: Yes VTE Score: 6 VTE Risk Level: Moderate Risk - Prophylaxis VTE Prophylaxis Ordered?: Yes Types of VTE Prophylaxis: TEDS Knee High Location of Applied Device: Bilateral Lower Extremeties Pharmacologic Type: Other (CLOPIDOGREL)
--- NOTE | 2019-03-28 07:41 | Consult Report ---
History of Present Illness Consult date: 03/28/19 Requesting physician: Heath Rogers Consult reason: chest pain Chief complaint: Tachycardia, chest pain Additional Medical History:: 1. CAD A. Previous coronary stenting, last in early 2016, [facility], Dr. Brendon Davis B. [facility], 01/2017, patent coronary arteries with possible underdeployed stent versus 30-40% narrowing distally near the mid segment of the LAD which is likely clinically insignificant. Circumflex, nondominant with a mid vessel stent widely patent and free of in-stent restenosis. RCA is a large dominant vessel with mild luminal irregularities. BOYCE ventriculogram reveals left ventricular ejection fraction at 20-25% with mid anterior apical hypokinesis. LVEDP is 20 mmHg. C. Echocardiogram, 01/2017, moderate left atrial enlargement, normal LV size with mild concentric LVH. EF estimated 25-30% with multiple segmental wall motion abnormalities including marked hypokinesis in the mid to distal septum, anterior and anteroapical wall. Mild MR and moderate TR with RVSP of 55-60 mmHg consistent with moderate pulmonary hypertension. D. [facility] [employer]-D/AICD implanted, 01/2017 E. Cardiac catheterization, 12/2017, drug-eluting stent placement to ostial proximal LAD with notation of previously placed LAD stent in 2017 showing 10-20% in-stent restenosis. Left ventricular ejection fraction estimated at 55% with LVEDP of 25 mmHg. F. Cardiac catheterization 02/2018, widely patent coronary stents and normal ejection fraction with normal left ventricular end-diastolic pressure. 3. Chronic LBBB. 4. Ex smoker, >45 pk yr history 5. Hyperlipidemia 6. Chronic low back pain with lower extremity radiculopathy A. S/p pain pump implantation, 05/2018 7. Iron deficiency anemia A. EGD and colonoscopy, 08/2018, 1. Nonerosive GERD with esophageal dysmotility/presbyesophagus and medium sized 3 cm hiatal hernia 2. Mild reactive gastropathy. 3. Diminutive colonic polyps X 3. History of present illness: 78-year-old female with at least 1 week of episodes of recurring retrosternal chest discomfort and sensation of racing heart that would occasionally radiate to the left shoulder and arm and was relieved with nitroglycerin presented to the emergency department at the encouragement of a friend. She reports there was "may be" associated shortness of breath but no nausea or diaphoresis patient has known history of coronary artery disease with last heart catheterization occurring 1 year ago at which point patient had patent stents and medical management was recommended. Patient also has an AICD which is regularly interrogated with last interrogation occurring in January. Patient had been in her normal state of health over the last year when she developed these chest pains. In the emergency department the patient was also found to be hypokalemic. She does take Lasix 3 times daily. Patient was admitted for rule out of NM and cardiology consultation. The above per Dr. Rogers EKG is A. sensed V. paced with pacemaker induced LBBB at rate of 110 bpm. Pt states she uses a medication pill box and does not think she has missed any of her medications. Chest pain symptoms occur only after her heart rate increases. Symptoms do resolve after rest or taking SL NTG. [facility] History Medical History: Reports:: Atrial Fibrillation, Cancer (skin cancer), Congestive Heart Failure, Coronary Artery Disease, Hyperlipidemia, Hypertension, Internal Pacemaker, Lung Disease (chronic bronchitis hx), Myocardial Infarction, Palpitations Denies:: Diabetes Mellitus Type 1, Diabetes Mellitus Type 2, MRSA, Seizures *Have you ever received a pneumonia vaccine?: No *Have you received a flu vaccine this season?: Yes Other Medical History: Reports: Anemia, Arthritis, Cataracts (removed 2012). Denies: Blood Transfusion Reaction Laterality Cases: Bilateral: Cataract, Tonsillectomy, Other Other Surgeries: Yes: Angiogram, Appendectomy, Cardiac Catheterization, Cholecystectomy, Hysterectomy-Total, Pacemaker, Skin Cancer Excision, Other (intrathecal pain pump implant) Amputation: No Fractures: Yes (ankle) - *Social History Educational Level: Completed GED/General Educational Development Smoking Status: Former smoker Tobacco Type: cigarettes # Packs/Day (cigarettes): 1 #Yrs smoked (if former smoker): 30 Smoking End Date: 2013 Alcohol Intake: current Alcohol Intake Frequency:: 0-2 drinks per day Substance Use Type: denies use *Occupational Status:: retired Housing: house Household Members: children *Travel in the last 8 weeks: None Family Hx:: Cancer, Heart Attack Meds Home Medications Medication Instructions Recorded Confirmed Type clopidogrel 75 mg tablet 75 mg PO DAILY 02/17/17 03/27/19 History albuterol sulfate 90 mcg/actuation 2 puff INHALATION Q6H PRN 02/18/17 03/27/19 History aerosol inhaler multivitamin 1 tab PO DAILY 02/18/17 03/27/19 History nitroglycerin 0.4 mg sublingual 0.4 mg SUBLINGUAL NEEDED PRN 02/18/17 03/27/19 History tablet Escitalopram Oxalate [Lexapro] 20 mg PO DAILY 02/24/17 03/27/19 History Pramipexole Di-HCl [Mirapex] 2 mg PO HS 02/24/17 03/27/19 History pantoprazole 40 mg tablet,delayed 40 mg PO BID tab 05/24/17 03/27/19 History release Biotin 10,000 mcg PO DAILY 05/21/18 03/27/19 History atorvastatin 40 mg tablet 40 mg PO HS #90 tab 07/04/18 03/27/19 Rx potassium chloride 20 mEq 20 meq PO DAILY tab 07/05/18 03/27/19 History tablet,extended release Losartan Potassium 25 mg PO DAILY 07/07/18 03/27/19 History spironolactone 25 mg tablet 25 mg PO DAILY #90 tab 12/22/18 03/27/19 Rx furosemide 40 mg tablet 40 mg PO TID PRN #90 tab 03/16/19 03/27/19 Rx Metoprolol Succinate 25 mg PO DAILY 03/28/19 03/28/19 History Allergies Allergy/AdvReac Type Severity Reaction Status Date / Time No Known Allergies Allergy Verified 03/27/19 20:15 Review of Systems - Review of Systems Review of systems:: pertinent systems reviewed and negative unless documented below - *Cardiovascular Reports chest pain, Reports shortness of breath with activity - *Respiratory Reports shortness of breath with activity, Denies cough - *Gastrointestinal Reports vomiting, Denies loose stools - *Genitourinary Denies blood in urine - *Musculoskeletal Reports back pain, Denies joint pain - *Neurologic Denies seizure-like activity Exam Vital signs and Labs for Last 24 Hours: Temp Pulse Resp BP Pulse Ox 98.0 F 86 19 122/49 L 95 03/28/19 04:00 03/28/19 04:00 03/28/19 04:00 03/28/19 04:00 03/28/19 04:00 Laboratory Results - last 24 hr 03/27/19 20:10: WBC 10.2, RBC 3.90 L, Hgb 12.1 L, Hct 37.4, MCV 95.8, MCH 31.1, MCHC 32.4, RDW 14.1, Plt Count 313, MPV 8.0, Neut % (Auto) 82.7 H, Lymph % (Auto) 12.3, [place] % (Auto) 4.1, Eos % (Auto) 0.6, Baso % (Auto) 0.4, Neut # (Auto) 8.5 H, Lymph # (Auto) 1.3, Aiken # (Auto) 0.4, Eos # (Auto) 0.1, Baso # (Auto) 0.1, ESR > 140 H 03/27/19 20:10: Sodium 143, Potassium 2.7 L*, Chloride 104, Carbon Dioxide 28, Anion Gap 13.7, BUN 14, Creatinine 0.99, Estimated Creat Clear 51, Estimated GFR 54 L, Est GFR ( Amer) 66, Glucose 145 H, Calcium 8.9, Troponin I < 0.02, C-Reactive Protein 2.7 H 03/27/19 23:20: Troponin I < 0.02 03/28/19 00:51: Urine Color Yellow, Urine Appearance Clear, Urine pH 5.5, Ur Specific [place] 1.025, Urine Protein Negative, Urine Glucose (UA) Negative, Urine Ketones Negative, Urine Blood Trace-l, Urine Nitrate Negative, Urine Bilirubin Negative, Urine Urobilinogen 0.2, Ur Leukocyte Esterase Negative, Urine WBC 3-5, Ur Squamous Epith Cells 5-10, Urine Bacteria Trace 03/28/19 02:06: Troponin I < 0.02 03/28/19 06:13: WBC 7.2 D, RBC 3.36 L, Hct 32.4 L, MCV 96.5, MCH 31.1, MCHC 32.3, RDW 14.2, Plt Count 272, MPV 7.8, Neut % (Auto) 67.7, Lymph % (Auto) 23.0, A[place] % (Auto) 7.6, Eos % (Auto) 1.4, Baso % (Auto) 0.4, Neut # (Auto) 4.9, Lymph # (Auto) 1.7, Aiken # (Auto) 0.6, Eos # (Auto) 0.1, Baso # (Auto) 0.0 03/28/19 06:13: Sodium 145, Potassium 3.2 L, Chloride 110 H, Carbon Dioxide 28, Anion Gap 10.2, BUN 17, Creatinine 0.79 D, Estimated Creat Clear 52, Estimated GFR 71, Est GFR ( Amer) 85 D, Glucose 92 D, Calcium 8.2 L, Magnesium 1.8, Total Bilirubin 0.3, AST 21, ALT 18, Alkaline Phosphatase 114, Total Protein 6.2 L, Albumin 2.5 L, Globulin 3.7 H, Albumin/Globulin Ratio 0.7 L, Triglycerides 95, Cholesterol 97 L, LDL Cholesterol 39, VLDL Cholesterol 19, HDL Cholesterol 39, Cholesterol/HDL Ratio 2.5 I & O for Last 24 hours: Intake & Output 03/25/19 03/26/19 03/27/19 03/28/19 11:59 11:59 11:59 11:59 Intake Total 298 / 298 Output Total 100 / 100 Balance 198 / 198 Weight 153 lb 1 oz - *Routine HEENT Exam Head: Present: normocephalic Eye: Present: EOMI, PERRL ENT: Present: mucous membranes moist - *Routine Neck Exam Present: supple. Absent: JVD, carotid bruit - *Routine Respiratory Exam Present: CTA bilaterally. Absent: accessory muscle use, rales, rhonchi, wheezes - *Routine Cardiovascular Exam Present: RRR. Absent: murmur, gallop, rubs - *Routine Abdominal Exam Present: soft. Absent: tenderness, distended, guarding - *Routine Extremities Exam Absent: edema, calf tenderness - *Routine Neurological Exam Present: alert, oriented X3, moving all extremities Assessment and Plan (1) Chest pain Current visit: Yes Status: Acute Qualifiers: Chest pain type: precordial pain Qualified Code(s): R07.2 - Precordial pain Category: Medical Code(s): R07.9 - Chest pain, unspecified (2) Left bundle branch block (LBBB) on electrocardiogram Current visit: Yes Status: Acute Category: Medical Code(s): I44.7 - Left bundle-branch block, unspecified (3) Hypokalemia Current visit: Yes Status: Acute Category: Medical Code(s): E87.6 - Hypokalemia (4) Tachycardia Current visit: Yes Status: Acute Category: Medical Code(s): R00.0 - Tachycardia, unspecified - Assessment and plan all Dx Assessment and Plan for all problems:: 1. Tachycardia and chest pain. AICD interrogated with no ventricular arrhythmias or episodes of a. fib noted but evidence of increased fluid retention noted. No evidence of ACS by cardiac enzymes. Chest pain felt to be due to tachycardia. My concern is that there is some non-compliance/missed doses of metoprolol causing the intermittent tachycardia. Will try to stress compliance with current meds including lasix, spironolactone and metoprolol. Await echo results. 2. Hypokalemia with recent vomiting, on replacement. Likely the etiology for her tachycardia. 3. CAD with history of LAD stenting. Troponins normal X 3. EKG is non- diagnostic due to paced LBBB. 4. Hard of hearing with questionable memory impairment. 5. Cardiomyopathy, echo has been ordered. Last LVEF 45-50% in 12/2017.
[2019-03-28 07:48] LABS: Hemoglobin 10.5 g/dL (12.2-16.2)
--- NOTE | 2019-03-29 16:11 | Cardiology Report ---
APPROVED REPORT EXAM: Comprehensive 2D, Doppler, and color-flow Echocardiogram Assistant At Surgery: Debbi Zhang RVT Ht: 4 ft 11 in Wt: 153lbs BSA: 1.65 BP: 122/49 mmHg Indications: Chest Pain, Atrial Fibrillation, CAD,CHF,Pacer,LBBB,Hx 2D Dimensions LVOT 1.85 cm (M/F) 1.5-2.5 M-Mode Dimensions RVDd 1.39 cm (0.9-2.6)LVDd 5.26 cm (3.5-5.7) LVDs 3.61 cm (3.5-5.7)IVSd 0.72 cm (0.6-1.1) PWd 1.04 cm (0.6-1.1)EF (Teich) 58.80% FS 31.40% EDV (Teich) 133.00 mL ESV (Teich) 54.80 mL LV Diastology E/A Ratio 0.72 Mitral Valve MV A Velocity 82.00 (40-130 cm/s) Left Ventricle Left atrium is mildly enlarged, left ventricle is normal size, mild concentric left ventricular hypertrophy, visually estimated ejection fraction 55% with no regional wall motion abnormality, grade 1 diastolic dysfunction seen without tissue Doppler evidence of raise left atrial pressure. Right Ventricle Right atrium and right ventricular mildly enlarged with normal contractility, there is a pacemaker lead seen right atrium and right ventricle. Aortic Valve Aortic valve is minimally thickened and fibrosed, there is no aortic stenosis or aortic insufficiency. Mitral Valve Mitral valve is mitral calcification, there is no mitral stenosis, there is mild mitral regurgitation. Tricuspid Valve Tricuspid valve is grossly normal, there is no tricuspid stenosis, there is mild tricuspid regurgitation, calculated right ventricular systolic pressure is 31 mmHg. Pulmonic Valve Pulmonic valve is poorly visualized. Great Vessels Aortic root is normal size. Pericardium There is anterior echo-free space seen. Conclusion 1. Mildly enlarged left atrium, normal left ventricular size, mild concentric left ventricular hypertrophy, visually estimated ejection fraction 55% with no regional wall motion abnormality, grade 1 diastolic dysfunction seen without tissue Doppler evidence of raise left atrial pressure. 2. Mildly enlarged right ventricle with normal contractility. 3. Mild mitral and tricuspid regurgitation, calculated right ventricular systolic pressure is 31 mmHg. 4. No significant pericardial effusion noted. Electronically signed by : Anderson Hay, 03/29/2019 16:10:36
--- NOTE | 2019-04-01 07:54 | Electrocardiograph Report ---
APPROVED REPORT Exam: Resting ECG HR:113 bpm ECG Measurements Heart Rate 113 AXES HI 168 P 59 QRSd 136 QRS 12 QT 352 T188 QTc 482 <Conclusion> Sinus tachycardia Left bundle branch block Abnormal ECG Electronically signed by : Heath Camarena, 04/01/2019 07:53:33
== END 2019-03-28 16:38 | disposition home or self-care (01) ==
LOC: ER 20:02 → 2ND 20:02
PROVIDERS: ADMIT Internal Medicine Adolescent Medicine; ATTEND Family Medicine
DX: I48.91 Unspecified atrial fibrillation; Z82.49 Family history of ischemic heart disease and other diseases of the circulatory system; Z85.828 Personal history of other malignant neoplasm of skin; I44.7 Left bundle-branch block, unspecified; E78.5 Hyperlipidemia, unspecified; I25.10 Atherosclerotic heart disease of native coronary artery without angina pectoris; I10 Essential (primary) hypertension; M19.90 Unspecified osteoarthritis, unspecified site; Z95.0 Presence of cardiac pacemaker; Z72.0 Tobacco use; E87.6 Hypokalemia; Z95.818 Presence of other cardiac implants and grafts; R07.2 Precordial pain; Z87.09 Personal history of other diseases of the respiratory system; Z79.899 Other long term (current) drug therapy; R00.0 Tachycardia, unspecified; I25.2 Old myocardial infarction
CPT/HCPCS: 36415; 71020; 71046; 80048; 80053; 80061; 81001; 83735; 84484; 85025; 85651; 86140; 93005; 93306; 96365; 99284; G0378

== ENCOUNTER → 2019-06-19 09:55 | Outpatient (POV) | payer MEDICARE, BC, SELFPAY ==
[2019-06-19 10:19] VITALS: BP 136/58; PULSE 65; RESP 18; TEMP 36.6; O2SAT 98; BMI 30.4
--- NOTE | 2019-06-19 11:05 | HMH.PMPROC ---
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 Patient states that Dr. Barboza will be fixing her back and she will no longer need a pain pump. I discussed with her that Dr. Barboza will be able to remove the pain pump during her surgery and we will switch it to 0 today. I did discuss briefly potential side effects or withdrawal symptoms to which she states this is never help me anyway . We will turn her to 0 today Physical Exam General: Alert and oriented x3, no acute distress, pleasant and cooperative, [on room air] Lungs: Resps E/U, Symmetrical chest expansion, Eyes: PERRL Musculoskeletal: Flexion and extension of lumbar spine somewhat guarded secondary to pain, deep tendon reflexes normal, strength in upper and lower extremities [5/5], [abnormal gait noted] Neurological: speech clear, supervisor sample preparation equal, no gross sensory deficits Procedure Details:: Informed consent was obtained and the risk and benefits of the procedure were explained to the patient. The patient was taken to the procedure room where noninvasive monitoring was placed including noninvasive blood pressure cuff and pulse oximeter. Patient's pump was interrogated and reprogrammed. The infusion rate was changed to 0 mg/day. The patient tolerated the procedure well. Plan and Disposition:: Patient is going to go to Dr. Amanda and have her pain pump removed. I discussed with her that she is welcome to return if she needs this in the future. I also provided her with a telemetry to take to her surgeon. Dr. Martinez has reviewed this note and agrees with this plan of care. This note was dictated using voice recognition software and may contain errors or omissions
== END ==
PROVIDERS: PCP Family Medicine; Visit Provider Clinical Nurse Specialist Family Health
DX: M51.16 Intervertebral disc disorders with radiculopathy, lumbar region (principal)
CPT/HCPCS: 62368

== ENCOUNTER 2019-08-22 05:37 | Observation (INO) | payer MEDICARE, BC, SELFPAY ==
[2019-08-22] VITALS (24 sets, daily range): BP systolic 104–156; BP diastolic 35–78; PULSE 84–110; RESP 16–28; TEMP 36.6–37.3; O2SAT 94–100; BMI 35.9; BMI 34.8; BMI 30.3
--- NOTE | 2019-08-22 | IR_ITS ---
APPROVED REPORT PROCEDURES Left heart catheterization Left ventriculogram Selective coronary angiogram INDICATION Known coronary artery disease, Unstable angina Informed consent was obtained prior to the procedure. COMPLICATIONS None TECHNIQUE One percent lidocaine used to anesthetize the right anterior aspect of the wrist. The right radial artery was accessed via the Seldinger technique. A 6 Maltese sheath was placed in the right radial artery. 2.5 mg of verapamil, 800 mcg of nitroglycerin, 1mg Lidocaine and 5000 U Heparin were given through the arterial sheath. The trap catheter was also used to perform left heart catheterization, left ventriculogram and selective coronary angiogram. At the end of the procedure the sheath was removed good hemostasis was achieved using Traclet band, patient was transferred to the postop holding area in stable condition. ANGIOGRAPHIC RESULTS The left main artery Normal The left anterior descending artery Has stents in the proximal segment which are widely patent free of in-stent restenosis with excellent proximal distal transitioning The circumflex artery Nondominant normal The right coronary artery Is a large dominant vessel with a proximal eccentric 20% stenosis with remaining vessel widely patent and normal The BOYCE ventriculogram reveals Normal 65% The left ventricular end-diastolic pressure Elevated at 25 to 30 mmHg IMPRESSION Widely patent coronary arteries as described above Normal ejection fraction Moderately elevated LVEDP consistent with diastolic dysfunction PLAN 1. Treatment of diastolic dysfunction Electronically signed by : Sebastián Sawant, 08/22/2019 14:17:01
--- NOTE | 2019-08-22 05:30 | ECG_ITS ---
APPROVED REPORT Exam: Resting ECG HR:101 bpm ECG Measurements Heart Rate 101 AXES AL 136 P 70 QRSd 138 QRS -4 QT 400 T 12 QTc 518 <Conclusion> Electronic ventricular pacemaker Electronically signed by : Samir Chakraborty, 08/22/2019 14:24:44
--- NOTE | 2019-08-22 05:34 | XR_ITS ---
PROCEDURE: XR CHEST PORTABLE CLINICAL HISTORY: chest pain COMPARISON: [facility]GCHEST CT angio chest from 02/24/2017 CXR2V XR chest 2V from 10/31/2017 CXR1VP XR chest portable from 05/21/2018 XR CHEST 2V from 03/27/2019 FINDINGS: The cardiomediastinal silhouette and pulmonary vascularity are within normal limits. The there is an AICD device present with biventricular pacemaker and right atrial lead. Coronary artery stent is present. Lungs are clear. No acute bony findings. IMPRESSION: No acute findings. Dictated by: Manuel Muhammad MD 08/23/2019 16:23 Electronically signed by Manuel Muhammad MD in [place] 08/23/2019 16:23
--- NOTE | 2019-08-22 05:35 | PC.NURSE ---
pt in own gown. blood labs obtained at this time.
[2019-08-22 05:44] LABS: Basophils % 0.6 % (0.1-2.0); Eosinophils # 0.2 K/mm3 (0.0-0.4); Eosinophils % 2.8 % (0.1-12.0); Hematocrit 27.2 % (37.0-47.0); Hemoglobin 8.6 g/dL (12.2-16.2); Lymphocytes # 1.5 K/mm3 (0.7-4.5); Lymphocytes % 21.9 % (10-50); Mean Corpuscular HGB Conc 31.6 g/dL (31.8-35.4); Mean Corpuscular Hemoglobin 24.1 pg (27.0-31.2); Mean Corpuscular Volume 76.2 fl (81-99); Mean Platelet Volume 7.1 fl (7.4-10.4); Monocytes # 0.5 K/mm3 (0.1-1.0); Monocytes % 7.1 % (1.7-9.3); Neutrophils # 4.8 K/mm3 (1.8-7.8); Neutrophils % 67.7 % (37.0-80.0); Platelet Count 329 K/mm3 (142-424); Red Blood Count 3.56 M/mm3 (4.20-5.40); Red Cell Distribution Width 15.1 % (11.5-17.5)
[2019-08-22 05:48] LABS: Chloride 103 mmol/L (98-107); Potassium 3.5 mmoL/L (3.5-5.1); Sodium 137 mmol/L (136-145)
[2019-08-22 05:51] LABS: Anion Gap 9.5 mEq/L (5-15); Blood Urea Nitrogen 11 mg/dl (7-17); Carbon Dioxide 28 mmol/L (22.0-30.0); Creatine Kinase 61 U/L (30-135); Creatinine Clearance Estimated 73 mL/min (50-200); Estimated Glomerular Filt Rate 81 ml/min (>60); GFR (African American) 98 ML/MIN (>60); Glucose 100 mg/dl (74-100)
[2019-08-22 06:01] LABS: Creatine Kinase MB 0.6 ng/ml (0.0-2.03)
--- NOTE | 2019-08-22 06:01 | PC.NURSE ---
informed md that patient needed evaluation and that lab results were returned.
[2019-08-22 06:04] LABS: Troponin I < 0.01 ng/ml (0.00-0.034)
[2019-08-22 06:31] LABS: Appearance,Urine CLEAR (Clear); Bilirubin,Urine Negative (Negative); Blood, Urine Negative (Negative); Color,Urine YELLOW (Yellow); Glucose,Urine (UA) Negative (Negative); Ketones,Urine Negative (Negative); Leukocyte Esterase,Urine Negative (Negative); Microscopic, Urine URINE MICROSCOPIC (MICROSCOPIC); Nitrate,Urine Negative (Negative); Protein,Urine Negative (Negative); Urobilinogen,Urine 0.2 EU/dl (0.2)
[2019-08-22 06:52] LABS: WBC,Urine Occasional #/hpf (0-3)
--- NOTE | 2019-08-22 06:53 | HMH.EDCP ---
ED Disposition Condition on Discharge: Fair - Critical Care Critical Care Time: No <Genaro Swartz - Last Filed: 08/22/19 07:41> <MiguelitoTomy vEelio - Last Filed: 08/22/19 09:12> Clinical Impression: AICD (automatic cardioverter/defibrillator) present Chest pain Qualifiers: Chest pain type: unspecified Qualified Code(s): R07.9 - Chest pain, unspecified Anemia Qualifiers: Anemia type: unspecified type Qualified Code(s): D64.9 - Anemia, unspecified Disposition: Admitted as Observation Referrals: Heath Rogers MD [Primary Care Provider] - Attestation: On 08/22/19, the high probability of a clinically significant, sudden or life threatening deterioration of the following system(s) required my full and direct attention, intervention and personal management. The time I documented below is in addition to time spent performing reported procedures but includes the following listed in this critical care notation. Medical Decision Making - Medical Records Medical records reviewed: Yes: I reviewed the patient's medical records. MR Comment: pt experienced chest discomfort radiating into her left neck/jaw and down her left arm; states she took nitro and called for ems. by the time ems arrived she had taken a second nitro sl tab and pretty much eradicated the pain. states during episode she was nauseated and soa. at time of presentation to ED she is free from nausea,pain and shortness of air. no acute distress. no focal deficits noted. Viewed patient's labs and chest x-ray and no acute findings are noted, and that had an appointment with Dr. Dr. Sawant and wondered if we could let him know that she was here; called Dr. Morin well and he agreed to come by and see the patient he wanted us to do additional 3 hour troponin level and that has been ordered. Patient is chest pain free and resting - Chuy Inquiry Pt receiving controlled substance: No - Lab Data Result diagrams: 08/22/19 05:33 08/22/19 05:33 <MaximeGenaro - Last Filed: 08/22/19 07:41> - Lab Data Result diagrams: 08/22/19 05:33 08/22/19 05:33 - ECG Data Tracing #1 Arrhythmias present: other (paced) - Physician Consults Physician Consulted: parker Reason -: Pt condition <Tomy Farley S - Last Filed: 08/22/19 09:12> Vital Signs: 08/22/19 05:30 08/22/19 06:00 08/22/19 06:30 Temperature 98.5 F Temperature Source Oral Pulse Rate [Right Brachial] 103 H 100 H 106 H Respiratory Rate 17 17 18 Blood Pressure [Right Arm] 141/67 H 147/71 H 143/63 H Blood Pressure Mean [Right Arm] 91 96 89 Blood Pressure Source [Right Arm] Automatic Cuff Automatic Cuff Automatic Cuff Blood Pressure Position [Right Arm] Supine Supine Supine 02 Sat by Pulse Oximetry 98 96 97 Oxygen Delivery Method Room Air Room Air Room Air 08/22/19 07:00 08/22/19 07:26 08/22/19 07:35 Temperature Temperature Source Pulse Rate [Right Brachial] 101 H 104 H 105 H Respiratory Rate 17 16 Blood Pressure [Right Arm] 130/66 130/66 140/61 Blood Pressure Mean [Right Arm] 87 87 87 Blood Pressure Source [Right Arm] Automatic Cuff Automatic Cuff Blood Pressure Position [Right Arm] Supine Sitting Supine 02 Sat by Pulse Oximetry 97 98 97 Oxygen Delivery Method Room Air Room Air Room Air 08/22/19 08:08 08/22/19 08:53 Temperature Temperature Source Pulse Rate [Right Brachial] 106 H 106 H Respiratory Rate 18 18 Blood Pressure [Right Arm] 144/59 H 134/55 L Blood Pressure Mean [Right Arm] 87 81 Blood Pressure Source [Right Arm] Automatic Cuff Automatic Cuff Blood Pressure Position [Right Arm] Sitting Supine 02 Sat by Pulse Oximetry 97 97 Oxygen Delivery Method Room Air Room Air - Lab Data Lab Results 08/22/19 05:33: Total Creatine Kinase 61, CK-MB (CK-2) 0.6, Troponin I < 0.01 08/22/19 05:33: WBC 7.0, RBC 3.56 L, Hgb 8.6 L, Hct 27.2 L, MCV 76.2 L, MCH 24.1 L, MCHC 31.6 L, RDW 15.1, Plt Count 329, MPV 7.1 L, Neut % (Auto) 67.7, Lymph % (Auto) 21.9, Darke
--- NOTE | 2019-08-22 07:51 | PC.NURSE ---
pt resting in room
--- NOTE | 2019-08-22 08:09 | PC.NURSE ---
took pt to restroom and got her a warm blanket
--- NOTE | 2019-08-22 09:06 | PC.NURSE ---
called kitchen to get cardiac tray for pt
--- NOTE | 2019-08-22 09:08 | PC.NURSE ---
called dao for dr barraza to speak with he is not in office today so dr manzano said he would take care of it
--- NOTE | 2019-08-22 09:11 | PC.NURSE ---
called 2500 to get room for pt pt will have a cath later on today
--- NOTE | 2019-08-22 09:12 | PC.NURSE ---
called back with room 212 called admissions for told them room # madi to dao obs chest pain
--- NOTE | 2019-08-22 09:16 | PC.NURSE ---
MELINDA Louis stated the benadryl that she ordered for is to be given to pt prior to her heart cath. States she is not exactly sure when pt is going for her heart cath so no to give medication yet.
--- NOTE | 2019-08-22 09:21 | PC.NURSE ---
nurse calling kayla brothers for pt
--- NOTE | 2019-08-22 09:26 | PC.NURSE ---
called house for bed madi to madi brit
--- NOTE | 2019-08-22 09:30 | HMH.PHAVTE ---
[facility] Pharmacy VTE Monitoring - Patient Demographics Admission date: 08/22/19 Report Date: 08/22/19 Time: 09:31 Allergies/Adverse Reactions: Patient Allergies No Known Allergies Allergy (Verified 04/06/19 11:31) Height: 1.68 m Weight: 97.976 kg Patient Problems: Current Active Problems (Last Reviewed 03/22/17 @ 14:36 by PATRICIA Echols) Chest pain (Acute) Anemia (Acute) AICD (automatic cardioverter/defibrillator) present (Chronic) - VTE Risk Labs: VTE Related Lab Results Hgb 8.6 g/dL (12.2-16.2) L 08/22/19 05:33 Hct 27.2 % (37.0-47.0) L 08/22/19 05:33 Plt Count 329 K/mm3 (142-424) 08/22/19 05:33 BUN 11 mg/dl (7-17) 08/22/19 05:33 Creatinine 0.70 mg/dl (0.52-1.04) 08/22/19 05:33 Estimated Creat Clear 73 mL/min (50-200) 08/22/19 05:33 Clinical Trial Participant: No - Prophylaxis VTE Prophylaxis Ordered?: Yes Types of VTE Prophylaxis: TEDS Knee High
--- NOTE | 2019-08-22 09:45 | PC.NURSE ---
report called to floor
--- NOTE | 2019-08-22 09:53 | HMH.CNCARD ---
History of Present Illness Consult date: 08/22/19 Requesting physician: Tomy Farley Consult reason: chest pain Chief complaint: chest pain Additional Medical History:: 1. CAD A. Previous coronary stenting, last in early 2016, [facility], Dr. Brendon Davis [facility], 01/2017, patent coronary arteries with possible underdeployed stent versus 30-40% narrowing distally near the mid segment of the LAD which is likely clinically insignificant. Circumflex, nondominant with a mid vessel stent widely patent and free of in-stent restenosis. RCA is a large dominant vessel with mild luminal irregularities. BOYCE ventriculogram reveals left ventricular ejection fraction at 20-25% with mid anterior apical hypokinesis. LVEDP is 20 mmHg. C. Echocardiogram, 01/2017, moderate left atrial enlargement, normal LV size with mild concentric LVH. EF estimated 25-30% with multiple segmental wall motion abnormalities including marked hypokinesis in the mid to distal septum, anterior and anteroapical wall. Mild MR and moderate TR with RVSP of 55-60 mmHg consistent with moderate pulmonary hypertension. D. [facility] BAG PATCHER-D/AICD implanted, 01/2017 E. Cardiac catheterization, 12/2017, drug-eluting stent placement to ostial proximal LAD with notation of previously placed LAD stent in 2017 showing 10-20% in-stent restenosis. Left ventricular ejection fraction estimated at 55% with LVEDP of 25 mmHg. F. Cardiac catheterization 02/2018, widely patent coronary stents and normal ejection fraction with normal left ventricular end-diastolic pressure. 3. Chronic LBBB. 4. Ex smoker, > 45 pk yr history 5. Hyperlipidemia 6. Chronic low back pain with lower extremity radiculopathy A. S/p pain pump implantation, 05/2018 7. Iron deficiency anemia A. EGD and colonoscopy, 08/2018, 1. Nonerosive GERD with esophageal dysmotility/presbyesophagus and medium sized 3 cm hiatal hernia. 2. Mild reactive gastropathy. 3. Diminutive colonic polyps X 3. 8. HTN 9. SVT History of present illness: This is a 78-year-old white female who was admitted to the hospital with chest pain. The patient states that she woke up in the middle of the night with a pressure sensation in the center of her chest. It radiated to her left arm up her neck and into her jaw and between her shoulder blades. The patient states that this lasted for about an hour and she took 2 nitroglycerin before the pain subsided. She states that she called EMS because she knew that it was not normal for her to have this type of chest pain. She also had episodes of chest pain on Tuesday. She states that the chest pain lasted about an hour or an hour and a half as well and she had to take 3 nitroglycerin before the chest pain subsided on Tuesday. She states that she did not come to the emergency department on Tuesday because the pain was not as bad. Today she rates the pain a 4 out of 10 in intensity. It is associated with shortness of breath and nausea. She states nothing worsened her chest pain. It did improve with nitroglycerin. The patient has known coronary artery disease with stenting in 2017 and 2018. She denies any fever, chills, vomiting, diarrhea, PND or orthopnea. She states that her edema has been well controlled with Lasix. Of note, upon arrival to the emergency department the patient was in atrial flutter. She has since converted to sinus tachycardia. Her biventricular AICD was downloaded today. It shows no ventricular events. Her corvue was stable. Her AICD also showed no atrial events as well. However Harrison Chapin, with [employer], was contacted because her device is not showing any atrial arrhythmias and she was in fact in atrial flutter. During the interrogation the patient was found to have a prolonged atrial refractory period. Her atrial refractory. Has been shortened and her biventricular AICD has been optimized to sampler pickup when she does have this atrial arrhyth
--- NOTE | 2019-08-22 10:03 | PC.NURSE ---
med/surg here to get pt to take to room
[2019-08-22 10:05] LABS: Troponin I < 0.01 ng/ml (0.00-0.034)
--- NOTE | 2019-08-22 10:55 | HMH.PHAINT ---
MEDICATION RECONCILIATION COMPLETED ON PATIENT USING PATIENT'S OWN RX BOTTLES AND EXTERNAL FILL HISTORY. -ANDRIA VILLEGAS, MICHAELD
--- NOTE | 2019-08-22 11:43 | PC.NURSE ---
Son (Kane) @ [employer]. Pt gave 1 ring and a set of earrings to him to take home. He placed them in a denture cup and will take them home. Confirmed with Jaleesa Lincoln RN.
--- NOTE | 2019-08-22 14:37 | PC.NURSE ---
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
--- NOTE | 2019-08-22 16:45 | HMH.HPDC ---
General - General Admission date:: 08/22/19 Discharge date: 08/22/19 *Admission Date: 08/22/19 *Chief complaint: Chest Pain *History of present illness: 78 year old with CAD presented to ER with chest pain that required two doses of nitroglycerin before resolving. Troponin was negative. Cardiology was consulted for evaluation and decision was made to proceed with [facility]. [facility] History I have reviewed the patient's past medical history: Yes Medical History: Reports:: Arrhythmia, Atrial Fibrillation, Cancer (skin cancer that was taken off), Congestive Heart Failure, Coronary Artery Disease, Hyperlipidemia, Hypertension, Internal Pacemaker, Lung Disease (chronic bronchitis hx), Myocardial Infarction, Palpitations Denies:: Diabetes Mellitus Type 1, Diabetes Mellitus Type 2, MRSA, Seizures *Have you ever received a pneumonia vaccine?: No *Have you received a flu vaccine this season?: Yes Other Medical History: Reports: Anemia, Arthritis, Cataracts (removed 2012). Denies: Blood Transfusion Reaction Laterality Cases: Bilateral: Tonsillectomy, Other Other Surgeries: Yes: Angiogram, Appendectomy, Cardiac Catheterization, Cholecystectomy, Hysterectomy-Total, Pacemaker, Skin Cancer Excision, Other (intrathecal pain pump implant) Amputation: No Fractures: Yes (ankle) - *Social History Last grade of school completed: GED Smoking Status: Current every day smoker Tobacco Type: cigarettes # Packs/Day (cigarettes): 1 #Yrs smoked (if former smoker): 30 Alcohol Intake: current Alcohol Intake Frequency:: holidays/special occasions only Substance Use Type: denies use *Occupational Status:: unemployed Housing: house Household Members: family *Travel in the last 8 weeks: None Family Hx:: Cancer, Heart Attack Review of Systems - Review of Systems Review of systems:: unable to obtain Exam Vital signs and Labs for Last 24 Hours: Temp Pulse Resp BP Pulse Ox 97.8 F 90 16 131/59 L 97 08/22/19 15:15 08/22/19 15:15 08/22/19 15:15 08/22/19 15:15 08/22/19 15:00 Laboratory Results - last 24 hr 08/22/19 05:33: Total Creatine Kinase 61, CK-MB (CK-2) 0.6, Troponin I < 0.01 08/22/19 05:33: WBC 7.0, RBC 3.56 L, Hgb 8.6 L, Hct 27.2 L, MCV 76.2 L, MCH 24.1 L, MCHC 31.6 L, RDW 15.1, Plt Count 329, MPV 7.1 L, Neut % (Auto) 67.7, Lymph % (Auto) 21.9, [place] % (Auto) 7.1, Eos % (Auto) 2.8, Baso % (Auto) 0.6, Neut # (Auto) 4.8, Lymph # (Auto) 1.5, [place] # (Auto) 0.5, Eos # (Auto) 0.2, Baso # (Auto) 0.0 08/22/19 05:33: Sodium 137, Potassium 3.5, Chloride 103, Carbon Dioxide 28, Anion Gap 9.5, BUN 11, Creatinine 0.70, Estimated Creat Clear 73, Estimated GFR 81, Est GFR ( Amer) 98, Glucose 100, Calcium 9.0 08/22/19 06:15: Urine Color Yellow, Urine Appearance Clear, Urine pH 6.0, Ur Specific [place] 1.020, Urine Protein Negative, Urine Glucose (UA) Negative, Urine Ketones Negative, Urine Blood Negative, Urine Nitrate Negative, Urine Bilirubin Negative, Urine Urobilinogen 0.2, Ur Leukocyte Esterase Negative, Urine RBC 3-5, Urine WBC Occasional, Ur Squamous Epith Cells 3-5, Urine Bacteria None 08/22/19 08:00: Troponin I < 0.01 I & O for Last 24 hours: Intake & Output 08/20/19 08/21/19 08/22/19 08/23/19 11:59 11:59 11:59 11:59 Weight 155 lb 7 oz - *Routine HEENT Exam Head: Present: normocephalic Eye: Present: EOMI, PERRL ENT: Present: mucous membranes moist - *Routine Neck Exam Present: supple. Absent: lymphadenopathy - *Routine Respiratory Exam Present: CTA bilaterally - *Routine Cardiovascular Exam Present: RRR - *Routine Abdominal Exam Present: soft, normoactive bowel sounds. Absent: tenderness - *Routine Extremities Exam Absent: cyanosis, clubbing, edema - *Routine Skin Exam Present: warm. Absent: rash - *Routine Neurological Exam Present: alert, oriented X3 Hospital Course Hospital Course: Patient underwent LHC with results as follows: ANGIOGRAPHIC RESULTS The left main artery Normal The left anterior arina
== END 2019-08-22 19:21 | disposition home or self-care (01) ==
LOC: ER 09:11 → 2ND 09:14
PROVIDERS: Internal Medicine; Admitting Provider Emergency Medicine; Emergency Provider Emergency Medicine; PCP Family Medicine; Visit Provider Family Medicine
DX: I25.110 Atherosclerotic heart disease of native coronary artery with unstable angina pectoris (principal); I48.91 Unspecified atrial fibrillation; I11.0 Hypertensive heart disease with heart failure; I50.9 Heart failure, unspecified; Z95.810 Presence of automatic (implantable) cardiac defibrillator; Z95.5 Presence of coronary angioplasty implant and graft; I65.23 Occlusion and stenosis of bilateral carotid arteries; J44.9 Chronic obstructive pulmonary disease, unspecified; Z72.0 Tobacco use; Z79.899 Other long term (current) drug therapy; I44.7 Left bundle-branch block, unspecified; I25.2 Old myocardial infarction
CPT/HCPCS: 71045; 80048; 81001; 82550; 82553; 84484; 85025; 93005; 93458; 96365; 96375; 99152; 99285; C1725; C1769; G0378; J1644; Q9967

== ENCOUNTER → 2019-09-08 08:51 | Outpatient (CLI) | payer MEDICARE, BC, SELFPAY ==
[2019-09-08] VITALS (12 sets, daily range): BP systolic 109–141; BP diastolic 46–85; PULSE 82–90; RESP 16–18; TEMP 36.7–36.9; O2SAT 98–100; BMI 30.4
[2019-09-08 14:08] LABS: Hematocrit 30.3 % (37.0-47.0); Hemoglobin 9.3 g/dL (12.2-16.2)
== END ==
PROVIDERS: PCP Family Medicine; Visit Provider Family Medicine
DX: D50.8 Other iron deficiency anemias (principal)
CPT/HCPCS: 36430; 85014; 85018; 86850; P9016

== ENCOUNTER 2019-10-30 10:45 | Outpatient (CLI) | payer MEDICARE, BC, SELFPAY ==
[2019-10-30 11:09] VITALS: BP 118/58; PULSE 79; RESP 18; TEMP 36.4; O2SAT 100
[2019-10-30 11:56] VITALS: BP 123/50; PULSE 67; RESP 18
== END 2019-10-30 11:56 | disposition home or self-care (01) ==
LOC: INF 10:50
PROVIDERS: Visit Provider Family Medicine
DX: D50.8 Other iron deficiency anemias (principal)
CPT/HCPCS: 96365; J1439

== ENCOUNTER 2019-11-06 10:49 | Outpatient (CLI) | payer MEDICARE, BC, SELFPAY ==
[2019-11-06 11:05] VITALS: BP 130/50; PULSE 77; RESP 20; O2SAT 100
[2019-11-06 11:50] VITALS: BP 127/50; PULSE 78; RESP 18
== END 2019-11-06 11:50 | disposition home or self-care (01) ==
LOC: INF 10:49
PROVIDERS: Visit Provider Family Medicine
DX: D50.8 Other iron deficiency anemias (principal)
CPT/HCPCS: 96365; J1439

== ENCOUNTER → 2019-12-25 10:57 | Outpatient (POV) | payer MEDICARE, BC, SELFPAY | PROVIDERS: Visit Provider Dermatology | DX: Z00.00 Encounter for general adult medical examination without abnormal findings (principal) ==

== ENCOUNTER → 2020-01-28 10:10 | Outpatient (CLI) | payer MEDICARE, BC, SELFPAY ==
--- NOTE | 2020-01-28 10:15 | XR_ITS ---
PROCEDURE: XR CHEST 2V CLINICAL HISTORY: ACUTE MIDLINE LOW BACK PAIN, HEMOPTYSIS COMPARISON: CT AGCHEST CT angio chest from 02/24/2017 CR CXR1VP XR chest portable from 05/21/2018 CR XR CHEST 2V from 03/27/2019 CR XR CHEST PORTABLE from 08/22/2019 FINDINGS: Normal heart size. Biventricular pacemaker is present with an atrial lead. The lungs are clear without infiltrates, suspicious nodules, or pleural effusions. No acute bony abnormalities. IMPRESSION: No acute findings. Dictated by: Manuel Muhammad MD 01/28/2020 16:38 Manuel Muhammad MD in [facility] 01/28/2020 16:38
--- NOTE | 2020-01-28 10:18 | XR_ITS ---
PROCEDURE: XR LUMBAR SPINE MIN 4V CLINICAL INDICATION: ACUTE MIDLINE LOW BACK PAIN COMPARISON: No exams were available for comparison FINDINGS: Thoracolumbar curvature convex right and lumbar curvature convex left not significantly changed. There has been interval lumbosacral surgery with posterior fusion from L3 to the mid sacral region with inter pedicular screws at L3-L4-L5-S1 and S2. Multilevel lumbar spondylosis is present with degenerative disc disease from L1-S1 methylmethacrylate is around the screws at L3. The left-sided connecting prasanth between L1 and L2 is slightly bent anteriorly along its superior margin. No evidence of fracture of the screws or connecting rods. At S2 the screws extend into ilium on both sides. There is generalized vascular calcification. IMPRESSION: Postsurgical changes and degenerative changes as described above. Dictated by: Manuel Muhammad MD 01/28/2020 16:37 Manuel Muhammad MD in [facility] 01/28/2020 16:37
== END ==
PROVIDERS: PCP Family Medicine; Visit Provider Family Medicine
DX: M54.5 Low back pain (principal); R04.2 Hemoptysis
CPT/HCPCS: 71046; 72110

== ENCOUNTER → 2020-04-08 13:27 | Outpatient (CLI) | payer MEDICARE, BC, SELFPAY ==
--- NOTE | 2020-04-08 13:32 | CT_ITS ---
PROCEDURE: CT CHEST W CON CLINCAL INDICATION: Hemoptysis, smoker COMPARISON: No exams were available for comparison TECHNIQUE: IV Contrast: 75ml Isovue 370 Axial images obtained with sagittal and coronal reformats. All CT scans at the facility use one or more dose reduction, viz: automated exposure control, ma/kV adjustment per patient size (including targeted exams where dose is matched to indication, i.e. head), or iterative reconstruction technique. FINDINGS: Coronary artery stents and calcifications present. Calcified nodes are present in the right hilum. There is a small to medium-sized hiatal hernia. Cardiac pacemaker device is present. Normal heart size. COPD changes. Mild thickening of the minor fissure nonspecific. Small calcified nodules are present along the minor fissure medially. No suspicious nodules. No effusions or infiltrates. No acute bony findings. IMPRESSION: COPD with hiatal hernia and evidence of old granulomatous disease. No acute finding Dictated by: Manuel Muhammad MD 04/10/2020 09:41 Manuel Muhammad MD in [facility] 04/10/2020 09:41
== END ==
PROVIDERS: PCP Family Medicine; Visit Provider Family Medicine
DX: R04.2 Hemoptysis (principal)
CPT/HCPCS: 71260; Q9967

== ENCOUNTER → 2020-05-21 09:54 | Outpatient (CLI) | payer MEDICARE, BC, SELFPAY ==
--- NOTE | 2020-05-21 | CA_ITS ---
APPROVED REPORT Exam: Pharmacologic Technologist: Meche Stevens Ht: 5 ft 1 in Wt: 160 lbs BSA: 1.72 m2 HR: 64 bpm BP: 138/44 mmHg Indications: Chest pain, Shortness of Breath, Bilateral Stenosis Medical History Medications: Furosemide (LASIX),,,,, Atorvastatin,,,,, Escitalopram,,,,, Ropinirole,,,,, CloPIdogrel,,,,, BiOTIN,,,,, SpirOnolactone,,,,, Potassium,,,,, Pramiprexole,,,,, Stress Test Details Test: LEXISCAN HR Resting HR: 65 bpm Max Heart Rate (APMHR): 142.119194 bpm Max HR Achieved: 87 bpm Target HR (85% APMHR): 120.854774 bpm % of APMHR: 61.27 Recovery HR: 77 bpm BP Resting BP: 138.0/44.0 mmHg Max BP: 138.0/44.0 mmHg Recovery BP: 120.0/46.0 mmHg ECG Resting ECG: Ventricular paced rhythm Clinical Exercise duration: 04:00 min Highest Stage Achieved: Exercise capacity: 1.0 METs Stress ECG Conclusion Symptoms: Shortness of air, stomach cramps, malaise. No chest pain. Arrhythmias/Ectopy: None ST-T Changes: Exaggeration of baseline abnormalities. Conclusion: Non-diagnostic Lexiscan stress. Myoview images reported separately. Electronically signed by : Sebastián Sawant, 05/23/2020 08:33:40
--- NOTE | 2020-05-21 09:54 | CA_ITS ---
APPROVED REPORT Brass Plater: CT Laterality: Bilateral Study Quality: Fair Indications: roro/dizziness, bruit Doppler Spectral Velocity Analysis dICA (R) 161.50/37.40 cm/s dICA (L) 125.10/27.70 cm/s Angel (R) 90.00/20.60 cm/s Angel (L) 95.80/18.70 cm/s pICA (R) 75.40/15.40 cm/s pICA (L) 97.80/17.00 cm/s dCCA (R) 91.80/13.50 cm/s dCCA (L) 62.60/13.40 cm/s pCCA (R) 98.90/20.50 cm/s pCCA (L) 71.60/15.00 cm/s Vert (R) 76.40/ cm/s Vert (L) 80.20/ cm/s ICA/CCA 1.80 ICA/CCA 2.00 Findings Duplex evaluation demonstrates stenosis of the right proximal internal carotid artery 20-49% with PSV <140 cm/sec, EDV <100 cm/sec, and IC/CC Ratio <4.0 Duplex evaluation demonstrates stenosis of the left proximal internal carotid artery in the range of 20-49% with PSV <140 cm/sec, EDV <100 cm/sec, and IC/CC Ratio <4.0. Duplex evaluation demonstrates antegrade flow of the bilateral Vertebral Arteries. Tortuous vessels bilateral Conclusion Duplex evaluation demonstrates stenosis of the right proximal internal carotid artery 20-49% with PSV <140 cm/sec, EDV <100 cm/sec, and IC/CC Ratio <4.0 Duplex evaluation demonstrates stenosis of the left proximal internal carotid artery in the range of 20-49% with PSV <140 cm/sec, EDV <100 cm/sec, and IC/CC Ratio <4.0. Duplex evaluation demonstrates antegrade flow of the bilateral Vertebral Arteries. Tortuous vessels bilateral Electronically signed by : Manuel Muhammad MD 05/21/2020 17:21:56
--- NOTE | 2020-05-21 11:20 | NM_ITS ---
APPROVED REPORT Exam: Nuclear Stress Test Indication: CAD, HX MN, HTN, HYPERLIPIDEMIA, TOB USE, FM HX, C.P., SOB Patient Location: Outpatient Stress Tech: Meche Stevens IN Tech:Vidhi Kline, ARRT, RT (R)(N) Ht: 5 ft 0 in Wt: 160 lbs Bra Size: 38D HR: 64 bpm BP: 138/44 mmHg BSA: 1.70 m2 History: CAD, HX MN, HTN, HYPERLIPIDEMIA, TOB USE, FM HX, C.P., SOB Procedure: Patient received a 0.4 mg of intravenous Lexiscan, resting heart rate 64 bpm, resting blood pressure 138/44 mmHg, with Lexiscan maximum heart rate achived was 85 bpm which is % of the maximum predicted heart rate and blood pressure was 133/45 mmHg. With Lexiscan, patient denied any complaint of chest pain. SOA Cardiac Stress and Resting SPECT Images: Cardiac Stress and Resting SPECT images were obtained using technetium 99m Myoview 31.6 mCi stress and 10.92 mCi at rest. EF normal at 59%. No wall motion abnormalities. Questionable small reversible defect in the septum toward the base of the heart as seen on the axial images. Suggest small area of ischemia. Correlate with EKG. Conclusion: EF normal at 59%. No wall motion abnormalities. Questionable small reversible defect in the septum toward the base of the heart as seen on the axial images. Suggest small area of ischemia. Correlate with EKG. Electronically signed by : Manuel Muhammad MD 05/26/2020 13:23:57
--- NOTE | 2020-05-21 12:55 | HMH.ITSHM ---
Current Home Medications as stated by this patient Guillermina Hinojosa or quality audit representative. []PRAMIPEXOLE POTASSIUM PANTOPRAZOLE METOPROLOL FUROSEMIDE CLOPIDOGREL ATORVASTATIN SPIRONOLACTONE ROPINIROLE MULTIVITAMIN LOSARTAN LEXAPRO BIOTIN
== END ==
PROVIDERS: PCP Family Medicine; Visit Provider Nurse Practitioner Family
DX: E78.5 Hyperlipidemia, unspecified (principal); I10 Essential (primary) hypertension; I25.10 Atherosclerotic heart disease of native coronary artery without angina pectoris; I50.9 Heart failure, unspecified; I65.29 Occlusion and stenosis of unspecified carotid artery; R06.00 Dyspnea, unspecified; R07.9 Chest pain, unspecified; R60.9 Edema, unspecified; Z95.810 Presence of automatic (implantable) cardiac defibrillator; R42 Dizziness and giddiness
CPT/HCPCS: 78452; 93017; 93306; 93880; A9502; J2785

== ENCOUNTER → 2020-05-28 12:05 | Outpatient (CLI) | payer MEDICARE, BC, SELFPAY ==
[2020-05-28 13:15] LABS: Basophils % 0.5 % (0.1-2.0); Eosinophils # 0.1 K/mm3 (0.0-0.4); Eosinophils % 0.8 % (0.1-12.0); Hematocrit 35.3 % (37.0-47.0); Hemoglobin 11.6 g/dL (12.2-16.2); Lymphocytes # 1.8 K/mm3 (0.7-4.5); Lymphocytes % 20.9 % (10-50); Mean Corpuscular HGB Conc 32.8 g/dL (31.8-35.4); Mean Corpuscular Hemoglobin 31.7 pg (27.0-31.2); Mean Corpuscular Volume 96.8 fl (81-99); Mean Platelet Volume 7.9 fl (7.4-10.4); Monocytes # 0.4 K/mm3 (0.1-1.0); Neutrophils # 6.1 K/mm3 (1.8-7.8); Neutrophils % 72.8 % (37.0-80.0); Platelet Count 235 K/mm3 (142-424); Red Blood Count 3.65 M/mm3 (4.20-5.40); White Blood Count 8.4 K/mm3 (4.8-10.8)
[2020-05-28 18:37] LABS: Alanine Aminotransferase 16 U/L (12-78); Albumin Level 3.7 g/dl (3.5-5.0); Albumin/Globulin Ratio 1.2 (1.1-1.8); Alkaline Phosphatase 127 U/L (38-126); Anion Gap 10.8 mEq/L (5-15); Aspartate Amino Transferase 27 U/L (14-36); Bilirubin,Total 0.3 mg/dl (0.2-1.3); Blood Urea Nitrogen 27 mg/dl (7-17); Carbon Dioxide 26 mmol/L (22.0-30.0); Chloride 106 mmol/L (98-107); Estimated Glomerular Filt Rate 61 ml/min (>60); GFR (African American) 73 ML/MIN (>60); Glucose 95 mg/dl (74-100); Potassium 4.8 mmoL/L (3.5-5.1); Sodium 138 mmol/L (136-145); Total Protein,Serum 6.7 g/dl (6.3-8.2)
== END ==
PROVIDERS: PCP Family Medicine; Visit Provider Urology
DX: E78.5 Hyperlipidemia, unspecified (principal); I10 Essential (primary) hypertension; I20.9 Angina pectoris, unspecified; I50.20 Unspecified systolic (congestive) heart failure; I65.29 Occlusion and stenosis of unspecified carotid artery; R06.00 Dyspnea, unspecified; R42 Dizziness and giddiness; Z95.810 Presence of automatic (implantable) cardiac defibrillator; Z01.818 Encounter for other preprocedural examination; Z11.52 Encounter for screening for COVID-19
CPT/HCPCS: 36415; 80053; 85025; U0003

== ENCOUNTER 2020-05-30 09:21 | Day surgery (SDC) | payer MEDICARE, BC, SELFPAY ==
[2020-05-30] VITALS (12 sets, daily range): BP systolic 93–159; BP diastolic 42–71; PULSE 64–77; RESP 16–20; TEMP 36.9; O2SAT 93–97; BMI 30.4
--- NOTE | 2020-05-30 | IR_ITS ---
APPROVED REPORT Patient Location: Outpatient PROCEDURES Left heart catheterization Left ventriculogram Selective coronary angiogram INDICATION Known coronary artery disease, Typical accelerated angina pectoris Informed consent was obtained prior to the procedure. COMPLICATIONS None Estimated Blood Loss: Less than 10 mls TECHNIQUE One percent lidocaine used to anesthetize the right anterior aspect of the wrist. The right radial artery was accessed via the Seldinger technique. A 6 Togolese sheath was placed in the right radial artery. 2.5 mg of verapamil, 800 mcg of nitroglycerin, 1mg Lidocaine and 5000 U Heparin were given through the arterial sheath. The trap catheter was also used to perform left heart catheterization, left ventriculogram and selective coronary angiogram. At the end of the procedure the sheath was removed good hemostasis was achieved using Traclet band, patient was transferred to the postop holding area in stable condition. ANGIOGRAPHIC RESULTS The left main artery Normal The left anterior descending artery Has stents in the proximal through mid segment which are widely patent free of in-stent restenosis with excellent proximal distal transitioning. The remaining LAD looks widely patent The circumflex artery Is nondominant yet still large vessel with a stent in the proximal to mid segment which is widely patent with minimal in-stent restenosis and excellent proximal distal transitioning. The remaining vessel is widely patent The right coronary artery Is a dominant vessel and has a mid vessel eccentric 30% stenosis with remaining vessel essentially normal The BOYCE ventriculogram reveals Preserved at 55 to 60% The left ventricular end-diastolic pressure 10 mmHg IMPRESSION Widely patent coronary arteries as described above Preserved ejection fraction Normal left ventricular end-diastolic pressure PLAN 1. Continue medical management 2. Treatment of endothelial dysfunction Electronically signed by : Sebastián Sawant, 05/30/2020 11:21:26
== END 2020-05-30 14:26 | disposition home or self-care (01) ==
PROVIDERS: PCP Family Medicine; Visit Provider Internal Medicine
DX: I25.118 Atherosclerotic heart disease of native coronary artery with other forms of angina pectoris (principal); T82.855A Stenosis of coronary artery stent, initial encounter; Z95.810 Presence of automatic (implantable) cardiac defibrillator; I50.20 Unspecified systolic (congestive) heart failure; I11.0 Hypertensive heart disease with heart failure; I65.23 Occlusion and stenosis of bilateral carotid arteries; Z79.899 Other long term (current) drug therapy; R06.02 Shortness of breath
CPT/HCPCS: 93458; 99152; C1725; C1760; C1769; J1644; Q9967

== ENCOUNTER 2020-08-11 13:00 | Outpatient (CLI) | payer MEDICARE, BC, SELFPAY ==
[2020-08-11 13:35] VITALS: BP 141/61; PULSE 84; RESP 18
[2020-08-11 14:02] VITALS: BP 128/69; PULSE 70; RESP 18
== END 2020-08-11 14:02 | disposition home or self-care (01) ==
LOC: INF 13:22
PROVIDERS: Visit Provider Family Medicine
DX: D50.0 Iron deficiency anemia secondary to blood loss (chronic) (principal); D50.8 Other iron deficiency anemias; Z86.2 Personal history of diseases of the blood and blood-forming organs and certain disorders involving the immune mechanism
CPT/HCPCS: 96374; Q0138

== ENCOUNTER 2020-08-14 12:54 | Outpatient (CLI) | payer MEDICARE, BC, SELFPAY ==
[2020-08-14 13:05] VITALS: BP 133/64; PULSE 70; RESP 18; TEMP 36.4; O2SAT 99
[2020-08-14 13:25] VITALS: BP 131/51; PULSE 73; RESP 18; O2SAT 98
== END 2020-08-14 13:25 | disposition home or self-care (01) ==
LOC: INF 12:54
PROVIDERS: Visit Provider Family Medicine
DX: D50.0 Iron deficiency anemia secondary to blood loss (chronic) (principal); D50.8 Other iron deficiency anemias; Z86.2 Personal history of diseases of the blood and blood-forming organs and certain disorders involving the immune mechanism
CPT/HCPCS: 96374; Q0138

== ENCOUNTER → 2020-09-15 14:13 | Outpatient (POV) | payer MEDICARE, BC, SELFPAY | PROVIDERS: Visit Provider Nurse Practitioner Family | DX: Z00.00 Encounter for general adult medical examination without abnormal findings (principal) ==

== ENCOUNTER → 2020-11-07 14:51 | Outpatient (CLI) | payer MEDICARE, BC, SELFPAY | PROVIDERS: Visit Provider Internal Medicine Gastroenterology | DX: Z01.812 Encounter for preprocedural laboratory examination (principal); Z11.52 Encounter for screening for COVID-19; Z13.810 Encounter for screening for upper gastrointestinal disorder | CPT/HCPCS: C9803; U0003; U0005 ==

== ENCOUNTER 2020-11-10 11:14 | Day surgery (SDC) | payer MEDICARE, BC, SELFPAY ==
[2020-11-06 14:46] VITALS: BMI 30.2
[2020-11-10 11:57] VITALS: BP 129/52; PULSE 63; RESP 18; TEMP 36.8; O2SAT 98
--- NOTE | 2020-11-10 12:45 | P.PN_ITS ---
[facility] Anesthesia Checklist - Patient Identification Patient Identification: Arm Band - Structural Data Admitted From: Home Planned Operative Procedure/s: egd Consent for Planned Operative Procedure(s) Verified: Yes Verified Documents: Surgical Consent, History and Physical - NPO Status Verified Time NPO: 00:00 - Additional verifications Anesthesia Reactions: No Hx Blood Transfusions: No Blood Transfusion Reaction: No - Airway Assessment C-Spine Mobility Assessed: Yes (mp2) TMJ Mobility Assessed: Yes Dentition: Edentulous - Neurological Assessment Level of Consciousness: Awake, Alert - Anesthesia Plan Anesthesia Risk discussed: Yes Anesthesia Plan: Verified ASA Class: III Anesthesia Type: MAC [facility] History I have reviewed the patient's past medical history: Yes Medical History: Reports:: Arrhythmia, Atrial Fibrillation, Congestive Heart Failure, Coronary Artery Disease, Hyperlipidemia, Hypertension, Internal Pacemaker, Lung Disease, Myocardial Infarction, Palpitations Denies:: Cancer, Diabetes Mellitus Type 1, Diabetes Mellitus Type 2, MRSA, Seizures *Have you ever received a pneumonia vaccine?: No *Have you received a flu vaccine this season?: Yes Other Medical History: Reports: Anemia, Arthritis, Cataracts. Denies: Blood Transfusion Reaction Anesthesia experience/problems:: nac Laterality Cases: Bilateral: Tonsillectomy, Other Other Surgeries: Yes: Angiogram, Appendectomy, Cardiac Catheterization, Ch olecystectomy, Colonoscopy, Hysterectomy-Total, Pacemaker, Skin Cancer Excision, Other (intrathecal pain pump implant) Amputation: No Fractures: Yes (ankle) - *Social History Last grade of school completed: High school graduate Smoking Status: Current every day smoker Tobacco Type: cigarettes # Packs/Day (cigarettes): 1 #Yrs smoked (if former smoker): 30 Alcohol Intake: current Alcohol Intake Frequency:: a few times a month Substance Use Type: denies use *Occupational Status:: retired Housing: house Household Members: children *Travel in the last 8 weeks: None Family Hx:: Asthma
--- NOTE | 2020-11-10 13:04 | HMH.PROC ---
[facility] Procedure Note Procedure Note:: Upper Endoscopy Procedure Report: Esophagogastroduodenoscopy with cold biopsies and TTS balloon dilation Endoscopost: Shawn Higginbotham II, MD Referring Physician: Heath Rogers MD Date of Procedure: November 10, 2020 Equipment: Olympus GIF 190 standard upper endoscope Sedation: MAC sedation Indications: Mrs. Hinojosa is a 79-year-old female who is here for diagnostic upper endoscopy secondary to esophageal chest pain/noncardiac chest pain. The patient does report some postprandial chest pain and dysphagia. She has had some bloating and dyspepsia. Most of her symptoms of heartburn and reflux are controlled with omeprazole. The patient did have a prior upper endoscopy with [place] in August 2018. At that time she had iron deficiency anemia. She has had dysphagia and some globus sensation. She will sometimes have to regurgitate food. The patient did have a full cardiac evaluation including cardiac catheterization (Sebastián Sawant M.D.) which was normal. She is on Plavix. Procedure: Prior to the procedure, a history and physical exam was performed, and patient's medications and allergies were reviewed. The risks, benefits and alternatives of the sedation and procedure were discussed with the patient. All questions were answered and informed consent was obtained. The patient was brought to the procedure room. Patient identification and proposed procedure were verified by the physician and the nurse. The patient was placed in a left lateral decubitus position and the scope was passed under direct vision. Throughout the procedure, the patient's blood pressure, pulse, and oxygen saturations were monitored continuously. The upper GI endoscopy was accomplished without difficulty. The patient tolerated the procedure well. Findings: The scope was passed directly into the upper esophagus and advanced to the third portion of the duodenum. The post bulbar duodenum and duodenal bulb were normal with normal mucosa and conniventes. The scope was withdrawn through a normal duodenal bulb and pylorus into the stomach. There was some mild reactive gastropathy of the antrum. There was mild chronic gastritis of the body and fundus of the stomach. Upon retroflexion there was a 4-5 cm medium sized hiatal hernia. 2 biopsies were taken in the antrum and along the lesser curvature for histology to rule out gastritis and/or H pylori. The scope was then withdrawn into the esophagus. There was a serrated Z-line but no evidence of reflux esophagitis or Guidry's. There was no Schatzki's ring. Biopsies were taken at the GE junction. There were strong tertiary contractions and evidence of moderate esophageal dysmotility. The entire esophagus was dilated to 60 German/20 mm with a TTS hydrostatic balloon. There was some resistance at the cricopharyngeus. They the remainder of the esophageal mucosa was normal. Impression: 1. Cricopharyngeal spasm status post dilation to 20 mm 2. Nonerosive GERD with moderate esophageal dysmotility and medium sized 4 to 5 cm hiatal hernia 3. Mild linear reactive gastropathy and mild chronic gastritis Plan: I will follow-up the biopsies. I do feel that the patient has some esophageal dyskinesia resulting in some of her chest pain and swallowing difficulty. We will discuss additional treatment options.
[2020-11-10 13:06] VITALS: BP 98/45; PULSE 69; RESP 18; TEMP 36.2; O2SAT 99
[2020-11-10 13:16] VITALS: BP 107/51; PULSE 68; RESP 18; TEMP 36.2; O2SAT 95
[2020-11-10 13:26] VITALS: BP 118/52; PULSE 61; RESP 18; TEMP 36.2; O2SAT 96
[2020-11-10 13:36] VITALS: BP 116/54; PULSE 60; RESP 18; TEMP 36.2; O2SAT 96
[2020-11-10 14:00] VITALS: BP 115/49; PULSE 60; RESP 18; TEMP 36.2; O2SAT 96
== END 2020-11-10 14:00 | disposition home or self-care (01) ==
LOC: OUTP 11:16
PROVIDERS: PCP Family Medicine; Visit Provider Internal Medicine Gastroenterology
PROC: 0DJ08ZZ Inspection of Upper Intestinal Tract, Via Natural or Artificial Opening Endoscopic (ICD-10-PCS; CPT 43235; principal; 2020-11-10 12:30)
DX: J39.2 Other diseases of pharynx (principal); K21.9 Gastro-esophageal reflux disease without esophagitis; K22.4 Dyskinesia of esophagus; K44.9 Diaphragmatic hernia without obstruction or gangrene; K31.9 Disease of stomach and duodenum, unspecified; K29.30 Chronic superficial gastritis without bleeding; Z79.02 Long term (current) use of antithrombotics/antiplatelets; I48.91 Unspecified atrial fibrillation; I25.10 Atherosclerotic heart disease of native coronary artery without angina pectoris; I10 Essential (primary) hypertension; E78.5 Hyperlipidemia, unspecified; I25.2 Old myocardial infarction
CPT/HCPCS: 43239; 43249; 88305; C1726

== ENCOUNTER → 2021-04-20 09:55 | Outpatient (POV) | payer MEDICARE, BC, SELFPAY ==
[2021-04-20 11:07] VITALS: BP 116/48; PULSE 81; RESP 18; TEMP 36.8; O2SAT 95; BMI 32.3
--- NOTE | 2021-04-20 11:16 | HMH.PMCON ---
Assessment and Plan (1) Degenerative disc disease, lumbar Status: Acute Category: Medical Code(s): M51.36 - Other intervertebral disc degeneration, lumbar region (2) Lumbar radiculopathy Status: Acute Category: Medical Code(s): M54.16 - Radiculopathy, lumbar region (3) Post laminectomy syndrome Status: Acute Category: Medical Code(s): M96.1 - Postlaminectomy syndrome, not elsewhere classified - Assessment and plan all Dx Assessment and Plan for all problems:: Patient is a pleasant 80-year-old female who comes in here to reestablish care. Patient has been having worsening low back pain that radiates to her right leg since her fall about 3 months ago. Patient has had back surgeries that was done by Dr. Barboza. At the moment, she was recommended to get steroid injections instead of going for surgery. She did have an intrathecal pain pump that was explanted a year and a half ago. We will schedule the patient for a lumbar epidural steroid injection. Risk and benefits of this procedure has been discussed with the patient. Patient would like to proceed with the procedure. Patient has been instructed to contact the clinic with any concerns before the next appointment. This note was dictated using voice recognition software and may contain errors or omissions. HPI - Data of Consult Patient: known to practice within the last 3 years Consult date: 04/20/21 Requesting Physician: THIEN Rivas - Consult Narrative Reason for consult: low back pain History of present illness: Ms. Hinojosa is a 80 year old female who presents today [facility]. Patient is currently being treated for degenerative disc disease of the lumbar spine with lumbar radiculopathy symptoms, post-laminectomy syndrome, and chronic low back pain. We have tried and failed intrathecal pain pump with the in the past. It was explanted 1.5 years ago because the patient was not able to tolerate the medication. Then, Dr. Barboza placed plates on her back which seemed to help her back pain until about 3 months ago. Patient states that she had a syncope episode and fell. She's had increased pain since then. Her recent MRI on 03/23/21 shows multilevel disc bulging and mild bilateral neural foraminal narrowing. She has fusion bridging L3-S1. Significant neural foraminal narrowing on the left at L2-L3 and on the right L3-L4 and L4-L5. Patient denies any loss of bowel and bladder functions. Patient describes her pain as originating from her low back and radiates mainly to her right hip, leg, and foot. This is worse with prolonged activity. It does get better on hip/lumbar flexion. She takes up to 6 tylenol tablets per day for pain. She did physical therapy for greater than 6 weeks within the last 6 months. She rates her pain today as 8/10. She is not on any scheduled medications. [facility] #[id number] CC: THIEN Rivas [facility] History I have reviewed the patient's past medical history: Yes Medical History: Reports:: Arrhythmia, Atrial Fibrillation, Congestive Heart Failure, Coronary Artery Disease, Hyperlipidemia, Hypertension, Internal Pacemaker, Lung Disease, Myocardial Infarction, Palpitations Denies:: Cancer, Diabetes Mellitus Type 1, Diabetes Mellitus Type 2, MRSA, Seizures *Have you ever received a pneumonia vaccine?: Yes *Have you received a flu vaccine this season?: Yes Other Medical History: Reports: Anemia, Arthritis, Cataracts. Denies: Blood Transfusion Reaction Laterality Cases: Bilateral: Tonsillectomy, Other Other Surgeries: Yes: Angiogram, Appendectomy, Cardiac Catheterization, Cholecystectomy, Colonoscopy, Hysterectomy-Total, Pacemaker, Skin Cancer Excision, Other (intrathecal pain pump implant) Amputation: No Fractures: Yes (ankle) - *Social History Smoking Status: Current every day smoker Tobacco Type: cigarettes # Packs/Day (cigarettes): 1 #Yrs smoked (if former smoker): 30 Alcohol Intake: never Alcohol Intake Frequency:: a few times a month
== END ==
PROVIDERS: Visit Provider Student in an Organized Health Care Education/Training Program
DX: M51.16 Intervertebral disc disorders with radiculopathy, lumbar region (principal); M96.1 Postlaminectomy syndrome, not elsewhere classified
CPT/HCPCS: 99202; G0463

== ENCOUNTER → 2021-04-27 14:17 | Outpatient (CLI) | payer MEDICARE, BC, SELFPAY ==
--- NOTE | 2021-04-27 14:25 | CA_ITS ---
APPROVED REPORT EXAM: Comprehensive 2D, Doppler, and color-flow Echocardiogram Zig Zag Stitcher: Allison Abreu CRT Ht: 4 ft 11 in Wt: 163lbs BSA: 1.69 BP: 138/84 mmHg Indications: CAD, CHF, AICD, Chest Pain, Shortness of Breath, Hyperlipidemia, Hypertension/HDD 2D Dimensions LVOT 1.61 cm (M/F) 1.5-2.5 LA Volume 35.70 mL LA Volume Index 21.10 mL/m2 (M/F) 16-34 M-Mode Dimensions RVDd 2.46 cm (0.9-2.6) LA Diam 3.89 cm (1.9-4.0) LVDd 4.82 cm (3.5-5.7) Ao Diam 3.23 cm (2.0-3.7) LVDs 3.46 cm (3.5-5.7) IVSd 1.50 cm (0.6-1.1) PWd 0.93 cm (0.6-1.1) EF (Teich) 54.40% FS 28.20% EDV (Teich) 108.60 mL TAPSE 1.87 (<1.7) ESV (Teich) 49.50 mL LV Diastology E Decel Time 200.00 (160-240 msec) E/A Ratio 0.86 MED E' 6.80 (< 7 cm/sec) MED A' 10.10 cm/s E'/MED E' Ratio 12.99 (>14) LAT E' 3.90 (<10 cm/sec) LAT A' 7.70 cm/s E/LAT E' Ratio 22.64 (>14) Aortic Valve AI PHT 452.00 ms AO Peak GR. 10.00 mmHg Mitral Valve MV A Velocity 103.00 (40-130 cm/s) E/A Ratio 0.86 MV Decel. Time 200.00 (160-240 ms) Pulmonary Valve PV Peak Velocity 97.00 (50-150 cm/s) Tricuspid Valve TR P. Velocity 253.00 cm/s RAP Estimate 10.00 mmHg RVSP 35.50 mmHg Left Ventricle Left atrium is mildly enlarged, left ventricle is normal size, mild concentric left ventricular hypertrophy, visually estimated ejection fraction 55% with no regional wall motion abnormality, grade 1 diastolic dysfunction seen with tissue Doppler evidence of raise left atrial pressure. Right Ventricle Right atrium and right ventricle are mildly enlarged with normal contractility, there is pacemaker lead seen in right ventricle. Aortic Valve Aortic valve is thickened and calcified without aortic stenosis, there is mild aortic insufficiency. Mitral Valve Mitral valve has mitral annular calcification, there is no mitral stenosis, there is mild mitral regurgitation. Tricuspid Valve Tricuspid valve is grossly normal, there is mild tricuspid regurgitation, calculated right ventricular systolic pressure 31 mmHg. Pulmonic Valve Pulmonic valve is poorly visualized. Great Vessels Aortic root is normal size. Inferior vena cava is normal size with normal inspiratory collapse. Pericardium No significant pericardial effusion noted. Conclusion 1. Mildly enlarged left atrium, normal left ventricular size, mild concentric left ventricular hypertrophy, visually estimated ejection fraction 55% with no regional wall motion abnormality, grade 1 diastolic dysfunction seen with tissue Doppler evidence of raise left atrial pressure. 2. Thickened and calcified aortic valve without aortic stenosis, there is mild aortic insufficiency. 3. Mild mitral and tricuspid regurgitation, calculated right ventricular systolic pressure 31 mmHg. 4. No significant pericardial effusion noted. 5. Inferior vena cava is normal size with normal inspiratory collapse. Electronically signed by : Anderson Hay MD 04/27/2021 19:18:40
[2021-04-27 15:50] LABS: Basophils % 0.4 % (0.1-2.0); Eosinophils # 0.1 K/mm3 (0.0-0.4); Eosinophils % 0.8 % (0.1-12.0); Hematocrit 27.7 % (37.0-47.0); Hemoglobin 8.6 g/dL (12.2-16.2); Lymphocytes # 1.6 K/mm3 (0.7-4.5); Mean Corpuscular HGB Conc 30.9 g/dL (31.8-35.4); Mean Corpuscular Hemoglobin 23.4 pg (27.0-31.2); Mean Platelet Volume 8.1 fl (7.4-10.4); Monocytes # 0.4 K/mm3 (0.1-1.0); Neutrophils # 6.6 K/mm3 (1.8-7.8); Neutrophils % 75.9 % (37.0-80.0); Platelet Count 422 K/mm3 (142-424); Red Blood Count 3.65 M/mm3 (4.20-5.40); Red Cell Distribution Width 16.9 % (11.5-17.5); White Blood Count 8.6 K/mm3 (4.8-10.8)
[2021-04-27 17:28] LABS: Anion Gap 9.3 mEq/L (5-15); Blood Urea Nitrogen 23 mg/dl (7-17); Calcium 8.1 mg/dl (8.4-10.2); Carbon Dioxide 29 mmol/L (22.0-30.0); Chloride 101 mmol/L (98-107); Estimated Glomerular Filt Rate 53 ml/min (>60); GFR (African American) 65 ML/MIN (>60); Glucose 98 mg/dl (74-100); Potassium 3.3 mmoL/L (3.5-5.1); Sodium 136 mmol/L (136-145)
[2021-04-27 17:37] LABS: NT Pro Brain Natriuretic Pep. 69.3 pg/mL (0-450)
== END ==
PROVIDERS: PCP Family Medicine; Visit Provider Nurse Practitioner Family
DX: E78.5 Hyperlipidemia, unspecified (principal); I25.10 Atherosclerotic heart disease of native coronary artery without angina pectoris; I50.9 Heart failure, unspecified; I65.29 Occlusion and stenosis of unspecified carotid artery; K46.9 Unspecified abdominal hernia without obstruction or gangrene; R06.00 Dyspnea, unspecified; R07.9 Chest pain, unspecified; R60.9 Edema, unspecified; Z95.810 Presence of automatic (implantable) cardiac defibrillator; I11.0 Hypertensive heart disease with heart failure
CPT/HCPCS: 36415; 80048; 83880; 85025; 93306

== ENCOUNTER 2021-05-02 08:53 | Outpatient (CLI) | payer MEDICARE, BC, SELFPAY ==
[2021-05-02] VITALS (11 sets, daily range): BP systolic 101–133; BP diastolic 44–60; PULSE 75–90; RESP 15–20; TEMP 36.6–36.9; O2SAT 95–97; BMI 29.2
[2021-05-02 16:04] LABS: Hematocrit 29.2 % (37.0-47.0); Hemoglobin 9.1 g/dL (12.2-16.2)
== END 2021-05-02 15:45 | disposition home or self-care (01) ==
LOC: INF 08:54
PROVIDERS: PCP Family Medicine; Visit Provider Family Medicine
DX: D64.9 Anemia, unspecified (principal); I25.10 Atherosclerotic heart disease of native coronary artery without angina pectoris; I51.9 Heart disease, unspecified
CPT/HCPCS: 36415; 36430; 85014; 85018; 86850; P9016

== ENCOUNTER 2021-05-08 08:48 | Day surgery (SDC) | payer MEDICARE, BC, SELFPAY ==
[2021-05-08 08:52] VITALS: BP 111/50; BP 139/55; PULSE 89; RESP 18; RESP 20; O2SAT 90; O2SAT 95
[2021-05-08 09:00] VITALS: BP 150/49; PULSE 69; RESP 20; TEMP 36.7; O2SAT 99; BMI 31.2
[2021-05-08 10:05] VITALS: BP 118/49; PULSE 76; RESP 20; O2SAT 97
--- NOTE | 2021-05-08 10:09 | HMH.PMPROC ---
- Procedure Date: 05/08/21 Time: 10:09 Anesthesiologist:: Rachel Weinstein MD Complications:: None Pre-procedure Diagnosis:: Degenerative disc disease of lumbar spine lumbar radiculopathy Post-procedure Diagnosis:: Same Indications for Procedure:: This patient is a very pleasant 80-year-old white female who presents today with chronic low back pain radiating to legs related to the above diagnosis. She has tried and failed conservative treatment including oral pain medications and home stretching program for greater than 6 weeks. She has previously undergone lumbar spine surgery with hardware placed that was performed by Dr. Barboza and she was recently evaluated and it was recommended she undergo steroid injections instead of surgery. She has previously had an intrathecal pain pump that was explanted a year and a half ago. The plan for today is for the patient to undergo a lumbar epidural steroid injection under fluoroscopy at L3-4 #1. Procedure Details:: Informed consent was obtained and the risk and benefits of the procedure was explained to the patient. The patient was taken to the procedure room. The patient was placed prone on the procedure table. The patient was prepped and draped in sterile fashion. C-arm fluoroscopy was used to view the lumbar spine. Skin and subcutaneous tissues were anesthetized using lidocaine. I placed an 18-gauge epidural needle and advanced into the L3-L4 interspace using fluoroscopic guidance and [id number] to air and saline. After confirmation of needle placement in the epidural space with dye I injected 1 mL of lidocaine 1.0% with Depo-Medrol 80 mg. Patient tolerated the procedure well with no complications. Plan and Disposition:: Follow-up with this patient in 2 weeks. Will reevaluate pain symptoms at that time.
== END 2021-05-08 10:00 | disposition home or self-care (01) ==
LOC: SC.PAINP 08:49
PROVIDERS: PCP Family Medicine; Visit Provider Anesthesiology Pain Medicine
DX: M51.16 Intervertebral disc disorders with radiculopathy, lumbar region (principal); M96.1 Postlaminectomy syndrome, not elsewhere classified; I48.91 Unspecified atrial fibrillation; I50.9 Heart failure, unspecified; I25.10 Atherosclerotic heart disease of native coronary artery without angina pectoris; E78.5 Hyperlipidemia, unspecified; I10 Essential (primary) hypertension; Z95.0 Presence of cardiac pacemaker; J84.9 Interstitial pulmonary disease, unspecified; I25.2 Old myocardial infarction; M19.90 Unspecified osteoarthritis, unspecified site; D64.9 Anemia, unspecified
CPT/HCPCS: 62323; J1040; Q9966

== ENCOUNTER → 2021-05-13 14:39 | Outpatient (CLI) | payer MEDICARE, BC, SELFPAY ==
[2021-05-13 15:42] LABS: Basophils # 0.1 K/mm3 (0-0.2); Basophils % 0.7 % (0.1-2.0); Eosinophils # 0.1 K/mm3 (0.0-0.4); Eosinophils % 1.1 % (0.1-12.0); Hematocrit 30.4 % (37.0-47.0); Hemoglobin 9.6 g/dL (12.2-16.2); Lymphocytes # 1.9 K/mm3 (0.7-4.5); Lymphocytes % 20.1 % (10-50); Mean Corpuscular HGB Conc 31.6 g/dL (31.8-35.4); Mean Corpuscular Hemoglobin 24.3 pg (27.0-31.2); Mean Corpuscular Volume 76.9 fl (81-99); Mean Platelet Volume 8.2 fl (7.4-10.4); Monocytes # 0.5 K/mm3 (0.1-1.0); Monocytes % 4.9 % (1.7-9.3); Neutrophils # 7.1 K/mm3 (1.8-7.8); Neutrophils % 73.2 % (37.0-80.0); Platelet Count 336 K/mm3 (142-424); Red Blood Count 3.96 M/mm3 (4.20-5.40); Red Cell Distribution Width 18.4 % (11.5-17.5); White Blood Count 9.6 K/mm3 (4.8-10.8)
[2021-05-13 16:19] LABS: Anion Gap 8.6 mEq/L (5-15); Blood Urea Nitrogen 21 mg/dl (7-17); Calcium 8.5 mg/dl (8.4-10.2); Carbon Dioxide 29 mmol/L (22.0-30.0); Chloride 102 mmol/L (98-107); Estimated Glomerular Filt Rate 69 ml/min (>60); GFR (African American) 84 ML/MIN (>60); Glucose 89 mg/dl (74-100); Potassium 4.6 mmoL/L (3.5-5.1); Sodium 135 mmol/L (136-145)
== END ==
PROVIDERS: Visit Provider Physician Assistant
DX: D64.9 Anemia, unspecified (principal); E78.5 Hyperlipidemia, unspecified; I10 Essential (primary) hypertension; I20.9 Angina pectoris, unspecified; I50.20 Unspecified systolic (congestive) heart failure; I50.9 Heart failure, unspecified; I65.29 Occlusion and stenosis of unspecified carotid artery; R06.00 Dyspnea, unspecified; Z95.810 Presence of automatic (implantable) cardiac defibrillator
CPT/HCPCS: 36415; 80048; 85025

== ENCOUNTER → 2021-05-28 11:40 | Outpatient (POV) | payer MEDICARE, BC, SELFPAY ==
[2021-05-28 11:55] VITALS: BP 131/61; PULSE 91; RESP 18; TEMP 36.4; O2SAT 99; BMI 31.6
--- NOTE | 2021-05-28 13:02 | HMH.PAINSOAP ---
[facility] Pain Management SOAP Note Subjective:: Patient is a pleasant 80-year-old female who presents today for follow-up. Patient recently had a lumbar epidural steroid injection on May 08, 2021. Patient had minimal relief during this injection. Patient also had an intrathecal pain pump that was explanted a year and a half ago that was not helping the patient's low back pain. Today, patient is complaining of pain around the bilateral upper buttocks that radiates to bilateral lower extremities. She cannot tolerate any full activity such as sitting, standing, and walking. Denies any recent falls or traumas. Denies any loss of bowel or bladder functions. Rates pain today as 8 out of 10. Takes Tylenol for pain. She is not on any scheduled medications. Review of Systems: General: No recent weight changes, no fever, no sleep disturbances Respiratory: No cough, no shortness of air, no recurring pulmonary infections Cardiovascular/peripheral vascular: No chest pain, no palpitations, no edema, no shortness of breath Gastrointestinal: No new onset incontinence, normal bowel movements reported Genitourinary: No new onset incontinence Musculoskeletal: Bilateral hip pain Psychiatric: [Normal mood/affect] Neurological: [Denies weakness in extremities], [denies balance issues] Objective:: Physical Exam: General: Alert and oriented x3, no acute distress, pleasant and cooperative, [on room air] Lungs: Respirations even and unlabored, symmetrical chest expansion Eyes: PERRL Musculoskeletal: Flexion and extension of lumbar [spine] somewhat guarded secondary to pain, [antalgic gait noted]; Bilateral SI are positive for JIM, Zenon's, Latexo's, Gaenslen's, compression, and distraction. Neurological: Speech clear, no gross sensory deficit Assessment:: Degenerative disc disease of lumbar spine with lumbar radiculopathy symptoms Sacroiliitis Plan:: Patient continues to have pain around her bilateral upper buttocks. She had minimal relief after her lumbar epidural steroid injection. Patient cannot tolerate any productivity such as sitting, standing, and walking. Bilateral SIR positive for JIM, Zenon's, Latexo's, Gaenslen's, compression, and distraction. Patient has tried physical therapy and at home exercises with minimal relief. We will schedule the patient for a bilateral SI injection. Risk and benefits have been discussed with the patient. Patient would like to proceed with the procedure. Patient has been instructed to contact the clinic with any concerns before the next appointment. Dr. Martinez has reviewed this note and agrees with this plan of care. This note was dictated using voice recognition software and make contain errors or omissions. [facility] History Medical History: Reports:: Arrhythmia, Atrial Fibrillation, Congestive Heart Failure, Coronary Artery Disease, Hyperlipidemia, Hypertension, Internal Pacemaker, Lung Disease, Myocardial Infarction, Palpitations Denies:: Cancer, Diabetes Mellitus Type 1, Diabetes Mellitus Type 2, MRSA, Seizures *Have you ever received a pneumonia vaccine?: Yes *Have you received a flu vaccine this season?: Yes Other Medical History: Reports: Anemia, Arthritis, Cataracts. Denies: Blood Transfusion Reaction Laterality Cases: Bilateral: Tonsillectomy, Other Other Surgeries: Yes: Angiogram, Appendectomy, Cardiac Catheterization, Cholecystectomy, Colonoscopy, Hysterectomy-Total, Pacemaker, Skin Cancer Excision, Other (intrathecal pain pump implant) Amputation: No Fractures: Yes (ankle) - *Social History Smoking Status: Current every day smoker Tobacco Type: cigarettes # Packs/Day (cigarettes): 1 #Yrs smoked (if former smoker): 30 Alcohol Intake: never Alcohol Intake Frequency:: a few times a month Substance Use Type: denies use *Occupational Status:: retired Housing: house Household Members: children *Travel in the last 8 weeks: None Family Hx:: Asthma
== END ==
PROVIDERS: Visit Provider Student in an Organized Health Care Education/Training Program
DX: M51.16 Intervertebral disc disorders with radiculopathy, lumbar region (principal); M46.1 Sacroiliitis, not elsewhere classified
CPT/HCPCS: 99212; G0463

== ENCOUNTER 2021-06-05 11:36 | Day surgery (SDC) | payer MEDICARE, BC, SELFPAY ==
[2021-06-05 11:41] VITALS: BP 141/51; PULSE 85; RESP 18; TEMP 36.7; O2SAT 99; BMI 31.2
[2021-06-05 11:53] VITALS: PULSE 89; RESP 18; O2SAT 100
[2021-06-05 11:55] VITALS: BP 144/62; PULSE 90; RESP 18; O2SAT 100
[2021-06-05 12:14] VITALS: BP 128/51; PULSE 82; RESP 20; O2SAT 98
--- NOTE | 2021-06-05 12:28 | P.PCN_ITS ---
- Procedure Date: 06/05/21 Time: 12:29 Anesthesiologist:: Jef Lantigua CRNA Complications:: None Pre-procedure Diagnosis:: Bilateral sacroiliitis Post-procedure Diagnosis:: Same Indications for Procedure:: Very pleasant 80-year-old female that presents our clinic today for bilateral SI joint injections. Patient has had a long history of lumbar back pain with radiation into bilateral hips and legs at times. She had a pain pump in the past however that has been removed. She complains of posterior hip pain bilaterally. She rates the pain 8/10. We will inject the bilateral SI joints. Procedure Details:: Procedure: Bilateral sacroiliac joint injections under fluoroscopy Informed consent was obtained and the risks and benefits of the procedure were explained to the patient.~ The patient was taken to the procedure room and noninvasive monitors were placed including a noninvasive blood pressure cuff and pulse oximeter.~ The patient was placed prone on the procedure table. Both hips were cleansed using Betadine as a cleansing solution. C-arm fluoroscopy was used to view the right sacroiliac joint.~ The skin and subcutaneous tissues were anesthetized using lidocaine 1.5% and a 25-gauge needle.~ After this, a 22-gauge spinal needle was inserted under fluoroscopic guidance into the inferior aspect of the right sacroiliac joint.~ Omnipaque dye was injected and good spread was seen throughout the joint.~ After this, approximately 5 mL of bupivacaine, 0.25% and Depo-Medrol, 40 mg was incrementally injected into the right sacroiliac joint. We then moved to the left sacroiliac joint.~ The skin and subcutaneous tissues were anesthetized using lidocaine 1.5% and a 25-gauge needle.~ After this, a 22- gauge spinal needle was inserted under fluoroscopic guidance into the inferior aspect of the left sacroiliac joint.~ Omnipaque dye was injected and good spread was seen throughout the joint. After this, approximately 5 mL of bupivacaine, 0.25% and Depo-Medrol, 40 mg was incrementally injected into the left sacroiliac joint.~ The patient tolerated the procedure well with no complications. The patient was observed in the Pain Clinic and then was discharged home neurologically intact. Plan and Disposition:: Patient was discharged without difficulty. She essentially had minimal pain when being discharged. She will return to see us as needed.
== END 2021-06-05 12:15 | disposition home or self-care (01) ==
LOC: SC.PAINP 11:37
PROVIDERS: PCP Family Medicine; Visit Provider Nurse Anesthetist, Certified Registered
DX: M46.1 Sacroiliitis, not elsewhere classified (principal); I48.91 Unspecified atrial fibrillation; I25.10 Atherosclerotic heart disease of native coronary artery without angina pectoris; E78.5 Hyperlipidemia, unspecified; I11.0 Hypertensive heart disease with heart failure; Z95.0 Presence of cardiac pacemaker; I50.9 Heart failure, unspecified; I25.2 Old myocardial infarction; I49.9 Cardiac arrhythmia, unspecified; D64.9 Anemia, unspecified; M19.90 Unspecified osteoarthritis, unspecified site; Z72.0 Tobacco use
CPT/HCPCS: 27096; G0260; J1040

== ENCOUNTER → 2021-07-09 08:10 | Outpatient (POV) | payer MEDICARE, BC, SELFPAY ==
[2021-07-09 08:24] VITALS: BP 116/45; PULSE 92; RESP 18; TEMP 37.4; O2SAT 97; BMI 31.2
--- NOTE | 2021-07-09 09:03 | HMH.PAINSOAP ---
[facility] Pain Management SOAP Note Subjective:: Patient is a pleasant 80-year-old female who presents today for follow-up after bilateral SI injection on June 05, 2021. We are currently treating this patient for degenerative disc disease of lumbar spine with lumbar radiculopathy symptoms, bilateral hip pain. After procedure, patient had 0% relief and rates her pain as 8 out of 10. She says that she still has a lot of bilateral upper buttock pain that radiates to her bilateral lower extremities all the way to her feet. She cannot tolerate any prolonged activities especially standing and walking. We have been treating this patient for a few years now. We have tried an intrathecal pain pump and tried different intrathecal medications which provided minimal relief to the patient. We ended up explanting this pain pump since it was not helping the patient. More recently, we also tried another lumbar epidural steroid injection that again provided minimal relief. Patient presents today frustrated and wants to know if she can take an oral medication that will help her pain. She has tried Tylenol arthritis with minimal relief. She is on Plavix so unfortunately, she cannot take any anti-inflammatory medications. Chuy [id number]. Review of Systems: General: No recent weight changes, no fever, no sleep disturbances Respiratory: No cough, no shortness of air, no recurring pulmonary infections Cardiovascular/peripheral vascular: No chest pain, no palpitations, no edema, no shortness of breath Gastrointestinal: No new onset incontinence, normal bowel movements reported Genitourinary: No new onset incontinence Musculoskeletal: Low back pain, bilateral hip pain Psychiatric: [Normal mood/affect] Neurological: [Denies weakness in extremities], [denies balance issues] Objective:: Physical Exam: General: Alert and oriented x3, no acute distress, pleasant and cooperative Lungs: Respirations even and unlabored, symmetrical chest expansion Eyes: PERRL Musculoskeletal: Flexion and extension of lumbar [spine] somewhat guarded secondary to pain, [antalgic gait noted]; patient is tender to palpation around the lateral upper buttocks. She is not tender around the SI joints. Neurological: Speech clear, no gross sensory deficit Assessment:: Degenerative disc disease of the lumbar spine with lumbar radiculopathy symptoms Bilateral hip pain Plan:: We have tried several different modalities for this patient's pain including intrathecal pain pumps, epidural injections, SI injections and they all did not provide any relief. Patient is wanting to know if she can take anything oral for pain. I will start the patient on tramadol 50 mg daily for breakthrough pain. I do recommend that the patient continue to take Tylenol arthritis in the morning and evening. Since we are starting this patient on a scheduled medication, we will order a drug screen today. We will follow-up with this patient in 1 month. I will also order a bilateral hip and pelvic x-ray to evaluate any arthritic pathology. Patient has been instructed to contact the clinic with any concerns before the next appointment. Dr. Martinez has reviewed this note and agrees with this plan of care. This note was dictated using voice recognition software and make contain errors or omissions. [facility] History Medical History: Reports:: Arrhythmia, Atrial Fibrillation, Congestive Heart Failure, Coronary Artery Disease, Heart Murmur, Hyperlipidemia, Hypertension, Internal Pacemaker, Lung Disease, Myocardial Infarction, Palpitations Denies:: Cancer, Diabetes Mellitus Type 1, Diabetes Mellitus Type 2, MRSA, Seizures *Have you ever received a pneumonia vaccine?: Yes *Have you received a flu vaccine this season?: Yes Other Medical History: Reports: Anemia, Arthritis, Cataracts. Denies: Blood Transfusion Reaction Laterality Cases: Bilateral: Tonsillectomy, Other Other Surgeries: Yes: Angiogram, Appendectomy, Cardiac Catheterization, Cho
== END ==
PROVIDERS: Visit Provider Student in an Organized Health Care Education/Training Program
DX: M51.16 Intervertebral disc disorders with radiculopathy, lumbar region (principal); M25.552 Pain in left hip; M25.551 Pain in right hip
CPT/HCPCS: 99212; G0463

== ENCOUNTER → 2021-07-09 09:11 | Outpatient (CLI) | payer MEDICARE, BC, SELFPAY ==
--- NOTE | 2021-07-09 09:18 | XR_ITS ---
FINAL REPORT CLINICAL HISTORY: paolo hip pain/back pain FINDINGS: An AP view of the pelvis and a frog leg views of the left hip were obtained. There is no prior exam for comparison. There are postoperative changes from fusion of the lumbosacral spine and bilateral SI joints. There is no acute osseous abnormality of the pelvis or left hip. The left hip joint space is preserved. There are vascular calcifications. There is no acute soft tissue abnormality. IMPRESSION: No acute osseous abnormality of the left hip. If pain persists, consider MR. Reviewed, Interpreted and Dictated by Gerri Woodard MD Transcribed by Molly Quintanilla Authenticated by Gerri Woodard MD on 07/09/2021 11:20:35 AM [facility]
--- NOTE | 2021-07-09 09:18 | XR_ITS ---
FINAL REPORT CLINICAL HISTORY: HIP AND LOWER BACK PAIN FINDINGS: AP and frog leg views of the right hip were obtained. There is no prior exam for comparison. There is no acute fracture or dislocation. Joint space is preserved. Soft tissues are within normal limits. IMPRESSION: No acute osseous abnormality of the right hip. If pain persists, MR is recommended. Reviewed, Interpreted and Dictated by Gerri Woodard MD Transcribed by Molly Quintanilla Authenticated by Gerri Woodard MD on 07/09/2021 11:20:[address] [facility]
[2021-07-09 13:42] LABS: Benzodiazepines Screen,Urine Negative ng/ml (<200)
[2021-07-09 13:43] LABS: Amphetamine/Metha Screen,Urine Negative ng/ml (<1000)
[2021-07-09 13:44] LABS: Barbiturates Screen,Urine Negative ng/ml (<200); Methadone Screen,Urine Negative ng/ml (<300)
[2021-07-09 13:45] LABS: Cannabinoid Screen,Urine Negative ng/ml (<50)
[2021-07-09 13:46] LABS: Cocaine Screen,Urine Negative ng/ml (<300); Opiate Screen,Urine Negative ng/ml (<300)
[2021-07-09 13:47] LABS: Phencyclidine Screen,Urine Negative ng/ml (<25)
== END ==
PROVIDERS: PCP Family Medicine; Visit Provider Student in an Organized Health Care Education/Training Program
DX: M25.552 Pain in left hip (principal); M25.551 Pain in right hip; M54.50 Low back pain, unspecified; Z79.899 Other long term (current) drug therapy
CPT/HCPCS: 73502; 80305; 99212; G0463

== ENCOUNTER → 2021-07-15 12:12 | Outpatient (CLI) | payer MEDICARE, BC, SELFPAY | PROVIDERS: Visit Provider Surgery | DX: Z01.812 Encounter for preprocedural laboratory examination (principal); Z20.822 Contact with and (suspected) exposure to COVID-19; Z13.810 Encounter for screening for upper gastrointestinal disorder; Z12.11 Encounter for screening for malignant neoplasm of colon; Z86.010 Personal history of colon polyps | CPT/HCPCS: C9803; U0003; U0005 ==

== ENCOUNTER 2021-07-17 09:11 | Day surgery (SDC) | payer MEDICARE, BC, SELFPAY ==
[2021-07-17] VITALS (7 sets, daily range): BP systolic 120–133; BP diastolic 50–74; PULSE 84–107; RESP 18; TEMP 36.1–36.5; O2SAT 94–100; BMI 31.2
--- NOTE | 2021-07-17 08:37 | HMH.ANESCL ---
[facility] Anesthesia Checklist - Patient Identification Patient Identification: Arm Band - Structural Data Admitted From: Home Planned Operative Procedure/s: EGD/Colonoscopy Consent for Planned Operative Procedure(s) Verified: Yes - NPO Status Verified Time NPO: 00:00 - Additional verifications Anesthesia Reactions: No Hx Blood Transfusions: No Blood Transfusion Reaction: No - Airway Assessment C-Spine Mobility Assessed: Yes TMJ Mobility Assessed: Yes Dentition: Dentures-good fit - Neurological Assessment Level of Consciousness: Awake Hx Seizures: No Numbness or tingling in extremities: No - Anesthesia Plan Anesthesia Risk discussed: Yes Anesthesia Plan: Verified ASA Class: III Anesthesia Type: MAC [facility] History I have reviewed the patient's past medical history: Yes Medical History: Reports:: Arrhythmia, Atrial Fibrillation, Congestive Heart Failure, Coronary Artery Disease, Heart Murmur, Hyperlipidemia, Hypertension, Internal Pacemaker, Lung Disease, Myocardial Infarction, Palpitations Denies:: Cancer, Diabetes Mellitus Type 1, Diabetes Mellitus Type 2, MRSA, Seizures *Have you ever received a pneumonia vaccine?: Yes *Have you received a flu vaccine this season?: Yes Other Medical History: Reports: Anemia, Arthritis, Cataracts. Denies: Blood Transfusion Reaction Anesthesia experience/problems:: None Laterality Cases: Bilateral: Tonsillectomy, Other Other Surgeries: Yes: Angiogram, Appendectomy, Cardiac Catheterization, Cholecystectomy, Colonoscopy, Hysterectomy-Total, Pacemaker, Skin Cancer Excision, Other (intrathecal pain pump implant) Amputation: No Fractures: Yes (ankle) - *Social History Smoking Status: Current every day smoker Tobacco Type: cigarettes # Packs/Day (cigarettes): 1 #Yrs smoked (if former smoker): 30 Alcohol Intake: never Alcohol Intake Frequency:: a few times a month Substance Use Type: denies use *Occupational Status:: retired Housing: house Household Members: children *Travel in the last 8 weeks: None Family Hx:: No significant family history
--- NOTE | 2021-07-17 08:41 | HMH.GSHP ---
HPI HPI: Patient is a 80-year-old female smoker from [facility] who is quite hard of hearing with history of left bundle branch block, atrial flutter, heart failure, supraventricular tachycardia, hyperlipidemia, carotid artery stenosis, cardiomyopathy, coronary artery disease, previous stents, previous myocardial infarction, with AICD, on clopidogrel, referred by cardiology at this institution for iron deficiency anemia. She had blood work which revealed hemoglobin 9.6 with hematocrit of 30. She has undergone transfusion in April 2021. Review of the record reveals that Dr. Higginbotham had performed EGD and colonoscopy on 09/01/2018 for iron deficiency anemia. She was found to have some nonerosive GERD with esophageal dysmotility, presbyesophagus, 3 cm hiatal hernia. Colonoscopy revealed several polyps and I have obtained the pathology which reveals transverse colon polyp showing focal traditional serrated adenomatous changes. SHe also had hyperplastic polyps in the sigmoid. Gastric biopsies revealed unremarkable gastric mucosa and normal duodenum. She does give a history of some dysphagia. She states that food does not seem to go down. She often has some regurgitation. [facility] History I have reviewed the patient's past medical history: Yes Medical History: Reports:: Arrhythmia, Atrial Fibrillation, Congestive Heart Failure, Coronary Artery Disease, Heart Murmur, Hyperlipidemia, Hypertension, Internal Pacemaker, Lung Disease, Myocardial Infarction, Palpitations Denies:: Cancer, Diabetes Mellitus Type 1, Diabetes Mellitus Type 2, MRSA, Seizures *Have you ever received a pneumonia vaccine?: Yes *Have you received a flu vaccine this season?: Yes Other Medical History: Reports: Anemia, Arthritis, Cataracts. Denies: Blood Transfusion Reaction Anesthesia experience/problems:: None Laterality Cases: Bilateral: Tonsillectomy, Other Other Surgeries: Yes: Angiogram, Appendectomy, Cardiac Catheterization, Cholecystectomy, Colonoscopy, Hysterectomy-Total, Pacemaker, Skin Cancer Excision, Other (intrathecal pain pump implant) Amputation: No Fractures: Yes (ankle) - *Social History Smoking Status: Current every day smoker Tobacco Type: cigarettes # Packs/Day (cigarettes): 1 #Yrs smoked (if former smoker): 30 Alcohol Intake: never Alcohol Intake Frequency:: a few times a month Substance Use Type: denies use *Occupational Status:: retired Housing: house Household Members: children *Travel in the last 8 weeks: None Family Hx:: No significant family history Review of Systems - Review of Systems Review of systems:: pertinent systems reviewed and negative unless documented below Meds Home Medications Medication Instructions Recorded Confirmed Type clopidogrel 75 mg tablet 75 mg PO DAILY 02/17/17 07/17/21 History Escitalopram Oxalate [Lexapro] 40 mg PO DAILY 02/24/17 07/17/21 History pantoprazole 40 mg tablet,delayed 40 mg PO BID tab 05/24/17 07/17/21 History release Biotin 10,000 mcg PO DAILY 05/21/18 07/17/21 History atorvastatin 40 mg tablet 40 mg PO HS #90 tab 07/04/18 07/17/21 Rx potassium 99 mg tablet 90 mg PO DAILY tab 05/28/20 07/17/21 History pramipexole 1 mg tablet 2 mg PO HS tab 05/28/20 07/17/21 History furosemide 40 mg tablet 80 mg PO BID #120 tab 04/20/21 07/17/21 Rx metoprolol succinate 50 mg 50 mg PO DAILY tab 04/20/21 07/17/21 History tablet,extended release 24 hr Sacubitril/Valsartan [Entresto] 1 tab PO BID 05/08/21 07/17/21 History Dapagliflozin Propanediol [Farxiga] 10 mg PO DAILY 05/28/21 07/17/21 History nitroglycerin 0.4 mg sublingual 0.4 mg SUBLINGUAL Q5M PRN #20 tab 06/19/21 07/17/21 Rx tablet Antiox.mv No.10/Omeg3s/Lut/Pieter 1 each PO DAILY 07/17/21 07/17/21 History [I-Caps with Lutein-[place] 3 Sfg] Cyanocobalamin (Vitamin B-12) 1,000 mcg PO DAILY 07/17/21 07/17/21 History [Liquid B-12] Empagliflozin [Jardiance] 10 mg PO DAILY 07/17/21 07/17/21 History Allergies Allergy/AdvReac Type Severity Reaction
--- NOTE | 2021-07-17 10:42 | HMH.SCOPE ---
- Procedure: Date: 07/17/21 Patient Date of :: 1940 Procedure Performed:: Esophagogastroduodenoscopy with biopsies Total colonoscopy with polypectomy by snare and biopsy Indications:: Patient is a 80-year-old female smoker from [facility] who is quite hard of hearing with history of left bundle branch block, atrial flutter, heart failure, supraventricular tachycardia, hyperlipidemia, carotid artery stenosis, cardiomyopathy, coronary artery disease, previous stents, previous myocardial infarction, with AICD, on clopidogrel, referred by cardiology at this institution for iron deficiency anemia. She had blood work which revealed hemoglobin 9.6 with hematocrit of 30. She has undergone transfusion in April 2021. Review of the record reveals that Dr. Higginbotham had performed EGD and colonoscopy on 09/01/2018 for iron deficiency anemia. She was found to have some nonerosive GERD with esophageal dysmotility, presbyesophagus, 3 cm hiatal hernia. Colonoscopy revealed several polyps and I have obtained the pathology which reveals transverse colon polyp showing focal traditional serrated adenomatous changes. SHe also had hyperplastic polyps in the sigmoid. Gastric biopsies revealed unremarkable gastric mucosa and normal duodenum. She does give a history of some dysphagia. She states that food does not seem to go down. She often has some regurgitation. Performing Provider:: Jorgito Otto MD Referring Provider:: MD Dinorah Nolan MD Sedation:: MAC sedation Procedure:: Consent was obtained and patient was taken to endoscopy procedure room. She was positioned in lateral decubitus position. Adequate intravenous sedation was achieved with anesthesia titration of propofol. Attention was first turned to upper endoscopy. Olympus endoscope was inserted via the oropharynx. Esophagus was cannulated. There were findings consistent with esophageal dysmotility. Gastroesophageal junction was encountered at 32 cm from the incisors. She had a moderately large sliding hiatal hernia. Stomach was cannulated and insufflated. Retroflexion revealed a moderately large sliding hiatal hernia measuring 5 to 7 cm. Overall gastric lumen appeared relatively unremarkable. Gastric antral biopsies obtained for CLOtest for H. pylori. Pylorus was traversed. Duodenum appeared unremarkable. Gastric biopsy was obtained for histopathologic analysis. Stomach was desufflated and the scope was withdrawn. Attention was then turned to colonoscopy. Variable stiffness Olympus colonoscope was inserted via the anus. It was advanced to the cecum. Colonic preparation was good. Ileocecal valve and appendiceal orifice were clearly identified. Colonoscope was slowly withdrawn through the colon with careful surveillance. In the descending colon there was a small polyp removed with cold cutting snare. There was a subtle extremely tiny hyperplastic appearing rectosigmoid polyp removed with cold biopsy forceps. Retroflexion within the rectum revealed nonbleeding internal hemorrhoids. Colonoscope was withdrawn. Findings:: Gastroesophageal junction at 32 cm from incisors Moderate sliding hiatal hernia measuring 5 to 7 cm Tiny descending colon polyp removed with snare Extremely tiny subtle hyperplastic appearing rectosigmoid polyp removed with biopsy Nonbleeding internal hemorrhoids Recommendations:: No identifiable etiology to explain iron deficiency anemia on colonoscopy or EGD. This is likely a longstanding issue. If GI blood loss is still considered may need small bowel evaluation. Complications:: None immediately apparent Estimated blood obtained (mL): 2
== END 2021-07-17 11:35 | disposition home or self-care (01) ==
LOC: OUTP 09:13
PROVIDERS: PCP Family Medicine; Visit Provider Surgery
PROC: 0DJ08ZZ Inspection of Upper Intestinal Tract, Via Natural or Artificial Opening Endoscopic (ICD-10-PCS; CPT 43235; principal; 2021-07-17 10:30)
DX: D64.9 Anemia, unspecified (principal); K21.9 Gastro-esophageal reflux disease without esophagitis; K44.9 Diaphragmatic hernia without obstruction or gangrene; D12.7 Benign neoplasm of rectosigmoid junction; D12.5 Benign neoplasm of sigmoid colon
CPT/HCPCS: 43239; 45380; 45385; 87339; 88305; J2704

== ENCOUNTER → 2021-07-28 12:09 | Outpatient (CLI) | payer MEDICARE, BC, SELFPAY ==
[2021-07-28 13:06] LABS: Chloride 99 mmol/L (98-107); Sodium 135 mmol/L (136-145)
[2021-07-28 13:07] LABS: Potassium 3.6 mmoL/L (3.5-5.1)
[2021-07-28 13:09] LABS: Blood Urea Nitrogen 16 mg/dl (7-17); Estimated Glomerular Filt Rate 81 ml/min (>60); GFR (African American) 98 ML/MIN (>60)
[2021-07-28 13:10] LABS: Anion Gap 10.6 mEq/L (5-15); Calcium 8.7 mg/dl (8.4-10.2); Carbon Dioxide 29 mmol/L (22.0-30.0); Glucose 109 mg/dl (74-100)
== END ==
PROVIDERS: PCP Physician Assistant; Visit Provider Family Medicine
DX: E78.5 Hyperlipidemia, unspecified (principal); I50.20 Unspecified systolic (congestive) heart failure; I50.9 Heart failure, unspecified; I65.29 Occlusion and stenosis of unspecified carotid artery; R06.00 Dyspnea, unspecified; Z95.810 Presence of automatic (implantable) cardiac defibrillator; I20.8 Other forms of angina pectoris; I11.0 Hypertensive heart disease with heart failure
CPT/HCPCS: 36415; 80048

== ENCOUNTER → 2021-08-03 14:27 | Outpatient (CLI) | payer MEDICARE, BC, SELFPAY ==
[2021-08-03 15:03] LABS: Basophils # 0.1 K/mm3 (0-0.2); Basophils % 0.6 % (0.1-2.0); Eosinophils # 0.1 K/mm3 (0.0-0.4); Eosinophils % 0.8 % (0.1-12.0); Hematocrit 29.4 % (37.0-47.0); Hemoglobin 9.2 g/dL (12.2-16.2); Lymphocytes # 1.8 K/mm3 (0.7-4.5); Mean Corpuscular HGB Conc 31.3 g/dL (31.8-35.4); Mean Corpuscular Volume 73.4 fl (81-99); Monocytes # 0.4 K/mm3 (0.1-1.0); Monocytes % 4.6 % (1.7-9.3); Neutrophils # 6.8 K/mm3 (1.8-7.8); Platelet Count 495 K/mm3 (142-424); Red Blood Count 4.01 M/mm3 (4.20-5.40); Red Cell Distribution Width 19.3 % (11.5-17.5); White Blood Count 9.2 K/mm3 (4.8-10.8)
[2021-08-03 15:50] LABS: Anion Gap 7.4 mEq/L (5-15); Blood Urea Nitrogen 17 mg/dl (7-17); Carbon Dioxide 35 mmol/L (22.0-30.0); Chloride 97 mmol/L (98-107); Estimated Glomerular Filt Rate 96 ml/min (>60); GFR (African American) 117 ML/MIN (>60); Glucose 112 mg/dl (74-100); Potassium 3.4 mmoL/L (3.5-5.1); Sodium 136 mmol/L (136-145)
== END ==
PROVIDERS: PCP Family Medicine; Visit Provider Nurse Practitioner
DX: E78.5 Hyperlipidemia, unspecified (principal); I50.20 Unspecified systolic (congestive) heart failure; I65.29 Occlusion and stenosis of unspecified carotid artery; R06.00 Dyspnea, unspecified; R42 Dizziness and giddiness; Z95.810 Presence of automatic (implantable) cardiac defibrillator; M54.9 Dorsalgia, unspecified; I11.0 Hypertensive heart disease with heart failure; I25.118 Atherosclerotic heart disease of native coronary artery with other forms of angina pectoris
CPT/HCPCS: 36415; 80048; 85025

== ENCOUNTER → 2021-08-20 13:21 | Outpatient (CLI) | payer MEDICARE, BC, SELFPAY ==
[2021-08-20 14:02] LABS: Basophils # 0.1 K/mm3 (0-0.2); Basophils % 0.8 % (0.1-2.0); Eosinophils # 0.1 K/mm3 (0.0-0.4); Eosinophils % 1.1 % (0.1-12.0); Hematocrit 31.8 % (37.0-47.0); Hemoglobin 9.5 g/dL (12.2-16.2); Lymphocytes # 1.6 K/mm3 (0.7-4.5); Lymphocytes % 21.4 % (10-50); Mean Corpuscular HGB Conc 29.8 g/dL (31.8-35.4); Mean Corpuscular Hemoglobin 24.5 pg (27.0-31.2); Mean Corpuscular Volume 82.1 fl (81-99); Mean Platelet Volume 8.7 fl (7.4-10.4); Monocytes # 0.4 K/mm3 (0.1-1.0); Monocytes % 5.2 % (1.7-9.3); Neutrophils # 5.3 K/mm3 (1.8-7.8); Neutrophils % 71.4 % (37.0-80.0); Platelet Count 282 K/mm3 (142-424); Red Blood Count 3.88 M/mm3 (4.20-5.40); Red Cell Distribution Width 23.2 % (11.5-17.5); White Blood Count 7.4 K/mm3 (4.8-10.8)
[2021-08-20 14:30] LABS: Iron 24 ug/dL (37-170)
[2021-08-20 14:39] LABS: Total Iron Binding Capacity 375 ug/dL (265-497)
[2021-08-20 15:06] LABS: Ferritin 16.1 ng/ml (11.1-264)
[2021-08-22 09:15] LABS: Haptoglobin 245 mg/dL (42-346)
== END ==
PROVIDERS: PCP Family Medicine; Visit Provider Internal Medicine Medical Oncology
DX: D50.8 Other iron deficiency anemias (principal)
CPT/HCPCS: 36415; 82728; 83010; 83540; 83550; 85025

== ENCOUNTER 2021-08-25 13:01 | Outpatient (CLI) | payer MEDICARE, BC, SELFPAY ==
[2021-08-25 13:35] VITALS: BP 103/40; PULSE 50; RESP 18; O2SAT 95
[2021-08-25 14:15] VITALS: BP 130/56; PULSE 50; RESP 20
== END 2021-08-25 14:15 | disposition home or self-care (01) ==
LOC: INF 13:03
PROVIDERS: PCP Family Medicine; Visit Provider Internal Medicine Medical Oncology
DX: D50.8 Other iron deficiency anemias (principal)
CPT/HCPCS: 96365; J1439

== ENCOUNTER 2021-09-01 12:55 | Outpatient (CLI) | payer MEDICARE, BC, SELFPAY ==
[2021-09-01 13:15] VITALS: BP 141/66; PULSE 68; RESP 18; O2SAT 99
[2021-09-01 13:55] VITALS: BP 150/79; PULSE 69; RESP 18
== END 2021-09-01 13:55 | disposition home or self-care (01) ==
LOC: INF 12:56
PROVIDERS: PCP Family Medicine; Visit Provider Internal Medicine Medical Oncology
DX: D50.9 Iron deficiency anemia, unspecified (principal)
CPT/HCPCS: 96365; J1439

== ENCOUNTER → 2021-09-08 13:55 | Outpatient (CLI) | payer MEDICARE, BC, SELFPAY ==
[2021-09-08 14:51] LABS: Basophils % 0.5 % (0.1-2.0); Eosinophils # 0.1 K/mm3 (0.0-0.4); Eosinophils % 1.2 % (0.1-12.0); Hematocrit 35.4 % (37.0-47.0); Hemoglobin 10.8 g/dL (12.2-16.2); Lymphocytes # 1.2 K/mm3 (0.7-4.5); Lymphocytes % 18.1 % (10-50); Mean Corpuscular HGB Conc 30.5 g/dL (31.8-35.4); Mean Corpuscular Hemoglobin 27.1 pg (27.0-31.2); Mean Corpuscular Volume 88.9 fl (81-99); Mean Platelet Volume 7.6 fl (7.4-10.4); Monocytes # 0.5 K/mm3 (0.1-1.0); Monocytes % 6.9 % (1.7-9.3); Neutrophils % 73.2 % (37.0-80.0); Platelet Count 269 K/mm3 (142-424); Red Blood Count 3.99 M/mm3 (4.20-5.40); Red Cell Distribution Width 22.7 % (11.5-17.5); White Blood Count 6.8 K/mm3 (4.8-10.8)
[2021-09-08 15:49] LABS: Anion Gap 5.7 mEq/L (5-15); Blood Urea Nitrogen 20 mg/dl (7-17); Calcium 8.4 mg/dl (8.4-10.2); Carbon Dioxide 31 mmol/L (22.0-30.0); Chloride 109 mmol/L (98-107); Estimated Glomerular Filt Rate 69 ml/min (>60); GFR (African American) 84 ML/MIN (>60); Glucose 98 mg/dl (74-100); Potassium 3.7 mmoL/L (3.5-5.1); Sodium 142 mmol/L (136-145)
== END ==
PROVIDERS: PCP Family Medicine; Visit Provider Physician Assistant
DX: D64.9 Anemia, unspecified (principal); I63.9 Cerebral infarction, unspecified
CPT/HCPCS: 36415; 80048; 85025

== ENCOUNTER → 2021-10-14 12:37 | Outpatient (CLI) | payer MEDICARE, BC, SELFPAY ==
--- NOTE | 2021-10-14 12:38 | CA_ITS ---
FINAL REPORT TECHNIQUE: Color Doppler, duplex Doppler and gonzales scale sonography of the bilateral neck arterial vasculature was performed. Velocities were measured in the carotid arteries. Stenosis evaluation based on the validated velocity criteria. CLINICAL HISTORY: roro, SMOKER, HTN FINDINGS: The peak systolic velocity of the right common carotid artery is 100 cm/s. The peak systolic velocity of the right internal carotid artery is 133 cm/s and end diastolic velocity 18 cm/s. A moderate amount of plaque is present. The right external carotid artery is patent. The right vertebral artery is patent with antegrade flow. ICA/CCA ratio: 1.63 The peak systolic velocity of the left common carotid artery is 97 cm/s. The peak systolic velocity of the left internal carotid artery is 332 cm/s and end diastolic velocity 51 cm/s. A small amount of plaque is present. The left external carotid artery is patent.The left vertebral artery is patent with antegrade flow. ICA/CCA ratio: 5.17 IMPRESSION: Less than 50% right carotid stenosis. 70-99% left carotid stenosis. Recommend CTA or catheter directed angiography. Reviewed, Interpreted and Dictated by Jorgito Abdi III, MD Transcribed by Jose Mcdonough Authenticated and [facility]
== END ==
PROVIDERS: PCP Family Medicine; Visit Provider Nurse Practitioner Family
DX: I65.23 Occlusion and stenosis of bilateral carotid arteries (principal)
CPT/HCPCS: 93880

== ENCOUNTER → 2021-10-20 10:30 | Outpatient (CLI) | payer MEDICARE, BC, SELFPAY ==
--- NOTE | 2021-10-20 10:33 | CT_ITS ---
FINAL REPORT TECHNIQUE: Thin section axial CT with IV contrast supplemented with multiplanar reconstruction under CT angiogram protocol. This study was performed with techniques to keep radiation doses as low as reasonably achievable (ALARA). Individualized dose reduction techniques using automated exposure control or adjustment of mA and/or kV according to the patient''s size were employed. NASCET criteria was utilized during interpretation. CLINICAL HISTORY: worsening roro left>right. COMPARISON: Carotid ultrasound dated October 14, 2021 FINDINGS: Aortic arch: Arch shows no significant narrowing. Great vessel origins are widely patent. Right carotid: There is calcified plaque of the distal right common carotid and right carotid bulb. There is less than 30% stenosis. The more distal internal carotid artery is patent. Left carotid: There is calcified plaque at the left carotid bulb with less than 50% stenosis. The internal carotid artery is patent. Vertebral: Right vertebral artery is dominant. No significant stenosis is present. There are patchy ground-glass pulmonary opacities in the lung apices that are nonspecific and could represent edema, alveolitis or early pneumonia. There is mucosal thickening in the right sphenoid and right maxillary sinuses. IMPRESSION: Less than 30% right carotid stenosis. Less than 50% left carotid stenosis. Patchy ground-glass pulmonary opacities are nonspecific and could represent edema, alveolitis, or early pneumonia. Reviewed, Interpreted and Dictated by Jorgito Abdi III, MD Transcribed by Jose Mcdonough Authenticated and . [facility]
[2021-10-20 11:08] LABS: Blood Urea Nitrogen 22 mg/dl (7-17); Estimated Glomerular Filt Rate 81 ml/min (>60); GFR (African American) 98 ML/MIN (>60)
== END ==
PROVIDERS: PCP Family Medicine; Visit Provider Nurse Practitioner Family
DX: I65.23 Occlusion and stenosis of bilateral carotid arteries (principal)
CPT/HCPCS: 36415; 70498; 82565; 84520; Q9967

== ENCOUNTER → 2021-11-02 13:02 | Outpatient (CLI) | payer MEDICARE, BC, SELFPAY ==
[2021-11-02 13:52] LABS: Basophils % 0.4 % (0.1-2.0); Eosinophils # 0.1 K/mm3 (0.0-0.4); Eosinophils % 0.6 % (0.1-12.0); Hematocrit 32.2 % (37.0-47.0); Hemoglobin 10.3 g/dL (12.2-16.2); Lymphocytes # 1.4 K/mm3 (0.7-4.5); Lymphocytes % 14.5 % (10-50); Mean Corpuscular HGB Conc 31.8 g/dL (31.8-35.4); Mean Corpuscular Hemoglobin 32.5 pg (27.0-31.2); Mean Corpuscular Volume 102.2 fl (81-99); Mean Platelet Volume 8.4 fl (7.4-10.4); Monocytes # 0.4 K/mm3 (0.1-1.0); Monocytes % 3.8 % (1.7-9.3); Neutrophils # 7.7 K/mm3 (1.8-7.8); Neutrophils % 80.7 % (37.0-80.0); Platelet Count 252 K/mm3 (142-424); Red Blood Count 3.15 M/mm3 (4.20-5.40); Red Cell Distribution Width 19.5 % (11.5-17.5); White Blood Count 9.6 K/mm3 (4.8-10.8)
[2021-11-02 14:24] LABS: Iron 50 ug/dL (37-170)
[2021-11-02 14:33] LABS: Total Iron Binding Capacity 332 ug/dL (265-497)
[2021-11-02 15:00] LABS: Ferritin 70.6 ng/ml (11.1-264)
== END ==
PROVIDERS: PCP Family Medicine; Visit Provider Internal Medicine Medical Oncology
DX: D50.8 Other iron deficiency anemias (principal)
CPT/HCPCS: 36415; 82728; 83540; 83550; 85025

== ENCOUNTER → 2021-12-03 11:37 | Outpatient (CLI) | payer MEDICARE, BC, SELFPAY ==
[2021-12-03 12:26] LABS: Basophils # 0.1 K/mm3 (0-0.2); Basophils % 0.5 % (0.1-2.0); Eosinophils # 0.1 K/mm3 (0.0-0.4); Eosinophils % 1.2 % (0.1-12.0); Hematocrit 31.6 % (37.0-47.0); Hemoglobin 10.1 g/dL (12.2-16.2); Lymphocytes # 1.4 K/mm3 (0.7-4.5); Mean Corpuscular HGB Conc 31.9 g/dL (31.8-35.4); Mean Corpuscular Hemoglobin 32.3 pg (27.0-31.2); Mean Corpuscular Volume 101.4 fl (81-99); Mean Platelet Volume 8.5 fl (7.4-10.4); Monocytes # 0.4 K/mm3 (0.1-1.0); Monocytes % 4.4 % (1.7-9.3); Neutrophils % 77.9 % (37.0-80.0); Platelet Count 252 K/mm3 (142-424); Red Blood Count 3.12 M/mm3 (4.20-5.40); Red Cell Distribution Width 15.5 % (11.5-17.5)
[2021-12-03 13:51] LABS: Total Iron Binding Capacity 403 ug/dL (265-497)
[2021-12-03 15:14] LABS: Vitamin B12 > 1000 pg/mL (239-931)
[2021-12-03 15:59] LABS: Iron 41 ug/dL (37-170)
[2021-12-03 16:35] LABS: Ferritin 18.5 ng/ml (11.1-264)
== END ==
PROVIDERS: PCP Family Medicine; Visit Provider Internal Medicine Medical Oncology
DX: D50.8 Other iron deficiency anemias (principal)
CPT/HCPCS: 36415; 82607; 82728; 82746; 83540; 83550; 85025

== ENCOUNTER 2021-12-15 12:34 | Outpatient (CLI) | payer MEDICARE, BC, SELFPAY ==
[2021-12-15 13:12] VITALS: BP 134/65; PULSE 67; RESP 18; TEMP 36.4; O2SAT 100
[2021-12-15 14:00] VITALS: BP 138/69; PULSE 69; RESP 18; O2SAT 99
== END 2021-12-15 14:05 | disposition home or self-care (01) ==
LOC: INF 12:35
PROVIDERS: PCP Family Medicine; Visit Provider Internal Medicine Medical Oncology
DX: D50.8 Other iron deficiency anemias (principal); Z86.39 Personal history of other endocrine, nutritional and metabolic disease
CPT/HCPCS: 96365; J1439

== ENCOUNTER 2021-12-22 12:59 | Outpatient (CLI) | payer MEDICARE, BC, SELFPAY ==
[2021-12-22 13:21] VITALS: BP 135/72; PULSE 71; RESP 18; TEMP 36.3; O2SAT 99
[2021-12-22 13:58] VITALS: BP 132/70; PULSE 68; RESP 18; O2SAT 98
== END 2021-12-22 13:59 | disposition home or self-care (01) ==
LOC: INF 13:00
PROVIDERS: PCP Family Medicine; Visit Provider Internal Medicine Medical Oncology
DX: D50.9 Iron deficiency anemia, unspecified (principal)
CPT/HCPCS: 96365; J1439

== ENCOUNTER 2022-01-05 08:48 | Day surgery (SDC) | payer MEDICARE, BC, SELFPAY ==
[2022-01-05] VITALS (12 sets, daily range): BP systolic 106–145; BP diastolic 47–83; PULSE 70–93; RESP 16–19; TEMP 36.9; O2SAT 92–100; BMI 33.7
--- NOTE | 2022-01-05 07:09 | IR_ITS ---
APPROVED REPORT Patient Location: Outpatient Coin Machine Assembler: ANA LILIA Khan RT (R) PROCEDURES Pocket Revision Removal of old Pacemaker Implant of Permanent Pacemaker INDICATION End of Battery Life Informed consent was obtained prior to the procedure. COMPLICATIONS None Estimated Blood Loss: Less than 10 mls TECHNIQUE 1% lidocaine with epinephrine used to anesthetize the left anterior aspect of the chest. Scalpel was used to make the initial cutaneous incision and then used to dissect down to the existing pacemaker generator. The generator was removed from the existing pocket. Digital manipulation was required along with intermittent usage of scalpel in order to revise the pocket. The leads were removed from the old generator. The new generator was screwed to the existing leads and secured into place. Electronic interrogation proved acceptable thresholds and voltage within the lead. Antibiotics were used to flush the pocket and the pacemaker was secured using 3-0 silk into the newly revised pocket. Monocryl was used to close the subcutaneous tissue and then kit were placed on the cutaneous area in order to approximate the incision. Patient was transferred to the postop holding area in stable condition. INTERROGATION Explanted Generator Model number: [employer], [id number] Explanted Generator Serial number: [id number] Implanted Generator Model number: V[employer]ilant X4 SERVER SUPPORT TECHNICIAN-D, G247 Implanted Generator Serial number: [id number] Atrial lead model number: [id number] P-wave: 3.0 mV Impedence: 490 ohms Threshold: 0.7 V@ 0.4 ms Current: 1.4 mA Right ventricular lead model number: [id number] R-wave: 12.0 mV Impedence: 480 ohms Threshold: 1.0 V Current: 2.1 mA Shock imp: 49 ohms Left ventricular lead model number: 1458@ Impedence: 1000 ohms Threshold: 3.5 V@ 1.0 ms (LV tip to RV) Current: 3.5 mA Pacing Parameters: Mode: DDDR Base/Max Track:60 ppm / 120 ppm ICD Therapy Parameters: VF 200 bpm 2.5 sec., Quick Convert, 41J x 1, 41J x 1, 41J x 6 VT 180 bpm 10 sec., ATP, 41J x 1, 41J x 1, 41J x 4 VT-1 150 bpm 10 sec., Monitor Only No diaphragmatic stimulation at 10 volts. IMPRESSION Successful Pocket Revision Successful Removal of old Pacemaker Successful Implant of Permanent Pacemaker PLAN 1. Follow up office visit, post op wound care Electronically signed by : Sebastián Sawant MD 01/05/2022 13:05:17
[2022-01-05 09:54] LABS: Basophils # 0.1 K/mm3 (0-0.2); Basophils % 0.7 % (0.1-2.0); Eosinophils # 0.1 K/mm3 (0.0-0.4); Eosinophils % 1.3 % (0.1-12.0); Hematocrit 35.3 % (37.0-47.0); Hemoglobin 11.3 g/dL (12.2-16.2); Lymphocytes # 1.1 K/mm3 (0.7-4.5); Lymphocytes % 14.1 % (10-50); Mean Corpuscular HGB Conc 32.1 g/dL (31.8-35.4); Mean Corpuscular Hemoglobin 32.6 pg (27.0-31.2); Mean Corpuscular Volume 101.3 fl (81-99); Monocytes # 0.4 K/mm3 (0.1-1.0); Monocytes % 4.9 % (1.7-9.3); Platelet Count 257 K/mm3 (142-424); Red Blood Count 3.48 M/mm3 (4.20-5.40); Red Cell Distribution Width 17.1 % (11.5-17.5); White Blood Count 7.6 K/mm3 (4.8-10.8)
[2022-01-05 09:57] LABS: Chloride 103 mmol/L (98-107); Potassium 3.5 mmoL/L (3.5-5.1); Sodium 140 mmol/L (136-145)
[2022-01-05 10:00] LABS: Blood Urea Nitrogen 13 mg/dl (7-17); Creatinine Clearance Estimated 56 mL/min (50-200); Estimated Glomerular Filt Rate 96 ml/min (>60); GFR (African American) 116 ML/MIN (>60)
[2022-01-05 10:01] LABS: Anion Gap 8.5 mEq/L (5-15); Calcium 8.5 mg/dl (8.4-10.2); Carbon Dioxide 32 mmol/L (22.0-30.0); Glucose 93 mg/dl (74-100)
== END 2022-01-05 14:54 | disposition home or self-care (01) ==
PROVIDERS: PCP Family Medicine; Visit Provider Internal Medicine
PROC: 0JH609Z Insertion of Cardiac Resynchronization Defibrillator Pulse Generator into Chest Subcutaneous Tissue and Fascia, Open Approach (ICD-10-PCS; CPT 33249; principal; 2022-01-05 09:30)
DX: T82.111A Breakdown (mechanical) of cardiac pulse generator (battery), initial encounter; I25.118 Atherosclerotic heart disease of native coronary artery with other forms of angina pectoris; I11.0 Hypertensive heart disease with heart failure; I50.42 Chronic combined systolic (congestive) and diastolic (congestive) heart failure; F17.210 Nicotine dependence, cigarettes, uncomplicated; Z79.899 Other long term (current) drug therapy; Z79.01 Long term (current) use of anticoagulants; I48.92 Unspecified atrial flutter; Z45.02 Encounter for adjustment and management of automatic implantable cardiac defibrillator; I48.91 Unspecified atrial fibrillation
CPT/HCPCS: 33264; 80048; 85025; 99152; 99153; C1882

== ENCOUNTER → 2022-03-08 11:54 | Outpatient (CLI) | payer MEDICARE, BC, SELFPAY ==
[2022-03-08 13:19] LABS: Basophils # 0.1 K/mm3 (0-0.2); Basophils % 0.6 % (0.1-2.0); Eosinophils # 0.1 K/mm3 (0.0-0.4); Eosinophils % 0.9 % (0.1-12.0); Hematocrit 38.3 % (37.0-47.0); Lymphocytes # 1.6 K/mm3 (0.7-4.5); Lymphocytes % 19.4 % (10-50); Mean Corpuscular HGB Conc 31.3 g/dL (31.8-35.4); Mean Corpuscular Hemoglobin 31.2 pg (27.0-31.2); Mean Corpuscular Volume 99.8 fl (81-99); Mean Platelet Volume 8.2 fl (7.4-10.4); Monocytes # 0.4 K/mm3 (0.1-1.0); Monocytes % 5.1 % (1.7-9.3); Platelet Count 263 K/mm3 (142-424); Red Blood Count 3.84 M/mm3 (4.20-5.40); Red Cell Distribution Width 15.7 % (11.5-17.5); White Blood Count 8.1 K/mm3 (4.8-10.8)
[2022-03-08 13:42] LABS: Iron 74 ug/dL (37-170)
[2022-03-08 13:53] LABS: Total Iron Binding Capacity 378 ug/dL (265-497)
[2022-03-08 14:17] LABS: Ferritin 41.3 ng/ml (11.1-264)
== END ==
PROVIDERS: PCP Family Medicine; Visit Provider Internal Medicine Medical Oncology
DX: D50.9 Iron deficiency anemia, unspecified (principal)
CPT/HCPCS: 36415; 82728; 83540; 83550; 85025

== ENCOUNTER → 2022-04-13 14:15 | Outpatient (CLI) | payer MEDICARE, BC, SELFPAY ==
[2022-04-13 14:26] LABS: MANUAL DIFFERENTIAL MANUAL DIFFERENTIAL (MANUAL DIFF)
[2022-04-13 14:48] LABS: Basophils # 0.1 K/mm3 (0-0.2); Basophils % 0.6 % (0.1-2.0); Eosinophils # 0.1 K/mm3 (0.0-0.4); Eosinophils % 0.7 % (0.1-12.0); Hematocrit 37.5 % (37.0-47.0); Hemoglobin 11.8 g/dL (12.2-16.2); Lymphocytes # 1.8 K/mm3 (0.7-4.5); Lymphocytes % 21.2 % (10-50); Mean Corpuscular HGB Conc 31.5 g/dL (31.8-35.4); Mean Corpuscular Hemoglobin 30.8 pg (27.0-31.2); Mean Corpuscular Volume 97.8 fl (81-99); Mean Platelet Volume 8.2 fl (7.4-10.4); Monocytes # 0.5 K/mm3 (0.1-1.0); Monocytes % 6.1 % (1.7-9.3); Neutrophils % 71.4 % (37.0-80.0); Platelet Count 279 K/mm3 (142-424); Red Blood Count 3.84 M/mm3 (4.20-5.40); Red Cell Distribution Width 14.4 % (11.5-17.5); White Blood Count 8.4 K/mm3 (4.8-10.8)
[2022-04-13 15:08] LABS: Anion Gap 4.5 mEq/L (5-15); Blood Urea Nitrogen 14 mg/dl (7-17); Calcium 8.8 mg/dl (8.4-10.2); Carbon Dioxide 28 mmol/L (22.0-30.0); Chloride 110 mmol/L (98-107); Estimated Glomerular Filt Rate 81 ml/min (>60); GFR (African American) 97 ML/MIN (>60); Glucose 94 mg/dl (74-100); Potassium 4.5 mmoL/L (3.5-5.1); Sodium 138 mmol/L (136-145)
[2022-04-13 17:19] LABS: Lymphocytes % 21 % (10-50); Monocytes % 6 % (2-9); Neutrophils % 73 % (42-76); Platelet Estimate Normal; RBC Morphology Normal; Total Cells Counted 100
== END ==
PROVIDERS: PCP Family Medicine; Visit Provider Physician Assistant
DX: E78.2 Mixed hyperlipidemia (principal); I11.0 Hypertensive heart disease with heart failure; I25.118 Atherosclerotic heart disease of native coronary artery with other forms of angina pectoris; I42.9 Cardiomyopathy, unspecified; I50.42 Chronic combined systolic (congestive) and diastolic (congestive) heart failure; I65.23 Occlusion and stenosis of bilateral carotid arteries; R06.02 Shortness of breath; Z95.810 Presence of automatic (implantable) cardiac defibrillator
CPT/HCPCS: 36415; 80048; 85007; 85014; 85018; 85048; 85049

== ENCOUNTER → 2022-04-23 13:38 | Outpatient (CLI) | payer MEDICARE, BC, SELFPAY ==
--- NOTE | 2022-04-23 13:38 | CT_ITS ---
FINAL REPORT TECHNIQUE: The patient was injected with IV contrast. Axial images were obtained of the chest by computed tomography. Precontrast images were also obtained. This study was performed with techniques to keep radiation doses as low as reasonably achievable (ALARA). Individualized dose reduction techniques using automated exposure control or adjustment of mA and/or kV according to the patient's size were employed. CLINICAL HISTORY: Shortness of air COMPARISON: 04/08/2020 FINDINGS: CT OF THE CHEST WITH AND WITHOUT CONTRAST: A left subclavian pacemaker is noted. There is no axillary adenopathy. There is no mediastinal or hilar adenopathy. Heart size is normal. There is no pericardial or pleural effusion identified. There is no suspicious pulmonary nodule or infiltrate identified. There is mild scarring in the lung bases. There is a small hiatal hernia. IMPRESSION: No acute cardiopulmonary process. Reviewed, Interpreted and Dictated by Jorgito Abdi III, MD Transcribed by Jeannette Craig Authenticated and [facility]
== END ==
PROVIDERS: PCP Family Medicine; Visit Provider Physician Assistant
DX: E78.2 Mixed hyperlipidemia (principal); I25.118 Atherosclerotic heart disease of native coronary artery with other forms of angina pectoris; I42.9 Cardiomyopathy, unspecified; I50.42 Chronic combined systolic (congestive) and diastolic (congestive) heart failure; I65.23 Occlusion and stenosis of bilateral carotid arteries; R06.02 Shortness of breath; Z95.810 Presence of automatic (implantable) cardiac defibrillator; I11.0 Hypertensive heart disease with heart failure
CPT/HCPCS: 71270; Q9967

== ENCOUNTER → 2022-06-03 07:59 | Outpatient (CLI) | payer MEDICARE, BC, SELFPAY | PROVIDERS: PCP Family Medicine; Visit Provider Internal Medicine | DX: E78.2 Mixed hyperlipidemia (principal); I10 Essential (primary) hypertension; I25.118 Atherosclerotic heart disease of native coronary artery with other forms of angina pectoris; I42.9 Cardiomyopathy, unspecified; I44.7 Left bundle-branch block, unspecified; I50.42 Chronic combined systolic (congestive) and diastolic (congestive) heart failure; I65.23 Occlusion and stenosis of bilateral carotid arteries; R06.02 Shortness of breath; Z95.810 Presence of automatic (implantable) cardiac defibrillator | CPT/HCPCS: 93306; 94060; 94726; 94729 ==

== ENCOUNTER 2022-08-04 12:30 | Observation (INO) | payer MEDICARE, BC, SELFPAY ==
[2022-08-04] VITALS (14 sets, daily range): BP systolic 109–156; BP diastolic 43–70; PULSE 70–94; RESP 18–24; TEMP 36.7–37; O2SAT 90–98; BMI 33.3; BMI 32.8
--- NOTE | 2022-08-04 12:28 | ECG_ITS ---
APPROVED REPORT Exam: Resting ECG HR:93 bpm ECG Measurements Heart Rate 93 AXES OR 129 P 62 QRSd 150 QRS 114 QT 411 T 24 QTc 461 Conclusion ELECTRONIC VENTRICULAR PACEMAKER ABNORMAL RHYTHM ECG UNCONFIRMED REPORT Electronically signed by : Heath Camarena MD 08/04/2022 21:47:03
--- NOTE | 2022-08-04 12:38 | XR_ITS ---
FINAL REPORT CLINICAL HISTORY: Shortness of breath COMPARISON: 02/07/2020 FINDINGS: The heart size is mildly enlarged. Biventricular pacer is present. The mediastinum is normal. There is no focal infiltrate or edema. There are chronic changes in the lung bases. There are no pleural effusions. There is no pneumothorax. There is no osseous abnormality. IMPRESSION: No acute cardiopulmonary process Reviewed, Interpreted and Dictated by Fran Del Cid MD Transcribed by Jeannette Craig Authenticated and [facility]
--- NOTE | 2022-08-04 12:42 | HMH.EDGENADL ---
Discharge Plan Disposition Chief Complaint: Shortness of Breath/Dyspnea Prescriptions Prescriptions: No Action metoprolol succinate 50 mg tablet extended release 24 hr 50 mg PO DAILY atorvastatin 40 mg tablet 40 mg PO DAILY budesonide-formoterol [Symbicort] 160-4.5 mcg/actuation HFA aerosol inhaler 2 puff inhalation BID 90 Days Qty: 10.2 3RF albuterol sulfate 90 mcg/actuation HFA aerosol inhaler 2 inh inhalation Q6H PRN (Reason: shortness of breath or wheezing) 90 Days Qty: 8.5 1RF pramipexole 1.5 mg tablet 1.5 mg PO HS Label Comments: TAKE 1 TABLET BY MOUTH AT NIGHT nitroglycerin 0.4 mg tablet, sublingual 0.4 mg SL Q5M PRN (Reason: chest pain) Qty: 25 0RF Rx Instructions: do not exceed 3 doses per episode clopidogrel 75 mg tablet See Rx Instructions .ROUTE .COMPLEX Qty: 90 1RF Dose Instruction: TAKE 1 TABLET BY MOUTH DAILY Rx Instructions: TAKE 1 TABLET BY MOUTH DAILY losartan 25 mg tablet 25 mg PO DAILY Qty: 30 5RF esomeprazole magnesium [Nexium] 40 mg capsule,delayed release(DR/EC) 40 mg PO DAILY potassium citrate 99 mg capsule PO DAILY biotin 10,000 MCG capsule 10,000 mcg PO DAILY escitalopram oxalate 20 MG tablet 40 mg PO DAILY cyanocobalamin (vitamin B-12) 1,000 MCG/15 ML liquid 1,000 mcg PO DAILY antiox. [id number] 1 EACH capsule 1 each PO DAILY furosemide [Lasix] 40 mg tablet 40 mg PO BID Referrals Follow up/Referrals: Jaymie Price MD [Primary Care Provider] - See instructions Discharge ED Provider: Priyank Mitchell General Adult HPI General Chief complaint: Shortness of Breath/Dyspnea Stated complaint: CP/SOA Time Seen by Provider: 08/04/22 13:43 History of Present Illness HPI narrative: This is an 81-year-old female with a history of COPD since [place] [facility] CHF who presents emergency room with several days of increasing clear cough and shortness of breath patient said that she was getting more leg swelling but took an extra water pill. Patient denies any fevers chills coryza hemoptysis weight loss night sweats patient denies any substernal chest pain pressure heaviness. In the emergency room patient is able to speak in full sentences. Related Data Home Medications Medication Instructions Recorded Confirmed escitalopram oxalate 20 mg tablet 40 mg PO DAILY Depression 02/24/17 06/17/22 biotin 10,000 mcg capsule 10,000 mcg PO DAILY Supplement 05/21/18 06/17/22 antiox.multivit [id number] 280 1 each PO DAILY VISION 07/17/21 06/17/22 mg-lutein 10 mg-zeaxanthin 2 mg capsule cyanocobalamin (vitamin B-12) 1,000 mcg PO DAILY Supplement 07/17/21 06/17/22 1,000 mcg/15 mL oral liquid furosemide 40 mg tablet (Lasix) 40 mg PO BID Fluid 12/15/21 06/17/22 metoprolol succinate 50 mg 50 mg PO DAILY 03/08/22 06/17/22 tablet,extended release 24 hr esomeprazole magnesium 40 mg 40 mg PO DAILY 04/19/22 06/17/22 capsule,delayed release (Nexium) potassium citrate 99 mg capsule mg PO DAILY 04/19/22 06/17/22 pramipexole 1.5 mg tablet 1.5 mg PO HS 05/11/22 06/17/22 atorvastatin 40 mg tablet 40 mg PO DAILY 06/17/22 06/17/22 Previous Rx's Medication Instructions Recorded nitroglycerin 0.4 mg sublingual 0.4 mg sublingual Q5M PRN chest 09/17/21 tablet pain #25 tabs clopidogrel 75 mg tablet See Rx Instructions .Route 04/19/22 .COMPLEX #90 tabs losartan 25 mg tablet 25 mg PO DAILY blood pressure #30 04/19/22 tabs albuterol sulfate 90 mcg/actuation 2 inh inhalation Q6H PRN shortness 06/17/22 aerosol inhaler of breath or wheezing 90 days #8.5 grams budesonide-formoterol HFA 160 2 puff inhalation BID 90 days 06/17/22 mcg-4.5 mcg/actuation aerosol #10.2 grams inhaler (Symbicort) Allergies Allergy/AdvReac Type Severity Reaction Status Date / Time No Known Allergies Allergy Verified 06/17/22 11:28 [facility] Disclaimer: The information contained in this section may have b
[2022-08-04 12:48] LABS: Basophils % 0.2 % (0.1-2.0); Eosinophils # 0.1 K/mm3 (0.0-0.4); Eosinophils % 0.9 % (0.1-12.0); Hematocrit 26.5 % (37.0-47.0); Hemoglobin 7.9 g/dL (12.2-16.2); Lymphocytes # 1.1 K/mm3 (0.7-4.5); Lymphocytes % 12.5 % (10-50); Mean Corpuscular HGB Conc 29.7 g/dL (31.8-35.4); Mean Corpuscular Hemoglobin 22.3 pg (27.0-31.2); Mean Corpuscular Volume 75.1 fl (81-99); Mean Platelet Volume 8.3 fl (7.4-10.4); Monocytes # 0.4 K/mm3 (0.1-1.0); Monocytes % 4.9 % (1.7-9.3); Neutrophils # 6.9 K/mm3 (1.8-7.8); Neutrophils % 81.4 % (37.0-80.0); Platelet Count 409 K/mm3 (142-424); Red Blood Count 3.53 M/mm3 (4.20-5.40); Red Cell Distribution Width 16.5 % (11.5-17.5); White Blood Count 8.4 K/mm3 (4.8-10.8)
--- NOTE | 2022-08-04 12:54 | PC.NURSE ---
rad in room for portable cxr
[2022-08-04 12:59] LABS: Activated Partial Thrombo Time 25.9 seconds (22.8-30.6); INR 0.95 (0.9-1.1); Prothrombin Time 10.3 seconds (10.1-12.5)
[2022-08-04 13:00] LABS: Alanine Aminotransferase 22 U/L (12-78); Albumin Level 3.7 g/dl (3.5-5.0); Albumin/Globulin Ratio 1.1 (1.1-1.8); Alkaline Phosphatase 192 U/L (38-126); Anion Gap 13.7 mEq/L (5-15); Aspartate Amino Transferase 32 U/L (14-36); Bilirubin,Total 0.2 mg/dl (0.2-1.3); Blood Urea Nitrogen 8 mg/dl (7-17); Calcium 8.4 mg/dl (8.4-10.2); Carbon Dioxide 28 mmol/L (22.0-30.0); Chloride 104 mmol/L (98-107); Creatinine Clearance Estimated 53 mL/min (50-200); Estimated Glomerular Filt Rate 96 ml/min (>60); GFR (African American) 116 ML/MIN (>60); Globulin 3.3 g/dL (1.3-3.2); Glucose 113 mg/dl (74-100); Potassium 3.7 mmoL/L (3.5-5.1); Sodium 142 mmol/L (136-145)
[2022-08-04 13:11] LABS: NT Pro Brain Natriuretic Pep. 910 pg/mL (0-450)
[2022-08-04 13:13] LABS: Troponin I < 0.01 ng/ml (0.00-0.034)
[2022-08-04 13:13] LABS: Coronavirus 19, PCR Not Detected (NotDetected); Influenza A, PCR Not Detected (NotDetected); Influenza B, PCR Not Detected (NotDetected)
[2022-08-04 13:28] LABS: Lactic Acid 1.6 mmol/L (0.7-2.1)
--- NOTE | 2022-08-04 13:32 | PC.NURSE ---
PATIENT ASSISTED TO BATHROOM AND BACK TO HER ROOM. NO NEEDS AT THIS TIME
--- NOTE | 2022-08-04 14:13 | PC.NURSE ---
called for cardiology, they will call back
--- NOTE | 2022-08-04 14:33 | PC.NURSE ---
Earl marie returned call
--- NOTE | 2022-08-04 14:33 | PC.NURSE ---
Dr Mitchell speaking to hospitalist
--- NOTE | 2022-08-04 14:53 | EXP.CARD.CON ---
History of Present Illness History of Present Illness Consult date: 08/04/22 Requesting physician: Priyank Mitchell Consult reason: congestive heart failure Chief complaint: SOA, CHF Additional Medical History:: 1. CAD A. Stenting in 2017, [facility], Dr. Brendon Stacy. [facility], 01/2017, patent coronary arteries with possible under deployed stent versus 30-40% narrowing distally near the mid segment of the LAD which is likely clinically insignificant.? Circumflex, nondominant with a mid vessel stent widely patent and free of in-stent?restenosis.? RCA is a large dominant vessel with mild luminal irregularities.? BOYCE ventriculogram reveals left ventricular ejection fraction?at 20-25% with mid anterior apical hypokinesis.? LVEDP is 20 mmHg. C.? Echocardiogram, 01/2017, moderate LAE, normal LV size with mild concentric LVH.? EF 25-30% with multiple segmental wall motion abnormalities including marked hypokinesis in the mid to distal septum, anterior and anteroapical wall.? Mild MR, moderate TR with RVSP of 55-60mmHg consistent with moderate pulmonary hypertension. D.? [facility] [employer] N[employer]SE-D/AICD implanted, 01/2017 E.? Cardiac catheterization, 12/2017, BENEDICTO to ostial proximal LAD with notation of previously placed LAD stent in 2017 showing 10-20% in-stent restenosis.? EF 55% with LVEDP of 25 mmHg. F.? Cardiac catheterization 02/2018, widely patent coronary stents and normal ejection fraction with normal LVEDP. G. [facility], 05/2020, normal LVEF, normal LVEDP, widely patent stents in coronary arteries 3. Chronic LBBB. 4. Ex smoker, > 45 pk yr history 5. Hyperlipidemia 6.? Chronic low back pain with lower extremity radiculopathy A.? S/p pain pump implantation, 05/2018 7.? Iron deficiency anemia A. EGD and colonoscopy, 08/2018, 1.? Nonerosive GERD with esophageal dysmotility/presbyesophagus and medium sized 3cm hiatal?hernia. 2.? Mild reactive gastropathy.? 3.? Diminutive colonic polyps X 3. 8. HTN 9. SVT History of present illness: This is an 81-year-old female with a history of COPD since [place] [facility] CHF who presents emergency room with several days of increasing clear cough and shortness of breath patient said that she was getting more leg swelling but took an extra water pill.? Patient denies any fevers chills coryza hemoptysis weight loss night sweats patient denies any substernal chest pain pressure heaviness.? In the emergency room patient is able to speak in full sentences. The above per Dr. Mitchell Patient confirms events as noted above with increasing shortness of breath and lower extremity edema over the last several days. She did take an extra water pill today which seems to be helping with her shortness of breath. Work-up in the ER showed a hemoglobin of 7.9 with elevated BNP of 910. EKG is sinus with no acute ST segment changes. Chronic left bundle branch block noted. Patient is going to be admitted for exacerbation of heart failure with plans for echocardiogram to evaluate left ventricular ejection fraction and diastolic function [facility] Disclaimer: The information contained in this section may have been updated after the patient was seen, as this information can be updated by other users. Medical History Atrial flutter CAD (coronary artery disease) Carotid artery stenosis CHF (congestive heart failure) Edema Hernia HLD (hyperlipidemia) HTN (hypertension) Left bundle branch block (LBBB) on electrocardiogram Preoperative clearance Recent myocardial infarction (~01/27/17) Surgical History AICD (automatic cardioverter/defibrillator) present Family History Other No significant family history Social History Smoking Status: Never smoker second hand exposure: No alcohol intake: current counseling provided: none s
--- NOTE | 2022-08-04 16:07 | PC.NURSE ---
report called to abbi piper.
--- NOTE | 2022-08-04 17:26 | EXP.HP ---
History of Present Illness *Admission Date: 08/04/22 *History of present illness: Patient with CAD cardiac stents, COPD, CHF, AICD, status post myocardial infarction, anemia. Patient admitted for shortness of breath for several days. Patient also admits to increased lower extremity swelling, orthopnea, PND, sleeping on 2 pillows. Patient called her job forwarder Dr. Sawant about shortness of breath, recommended to come to hospital for evaluation. Admits to coronary disease with 5 previous heart stents. Also admits to previous diagnosis of congestive heart failure. Denies recent COPD exacerbations. [facility] Disclaimer: The information contained in this section may have been updated after the patient was seen, as this information can be updated by other users. Medical History Atrial flutter CAD (coronary artery disease) Carotid artery stenosis CHF (congestive heart failure) Edema Hernia HLD (hyperlipidemia) HTN (hypertension) Left bundle branch block (LBBB) on electrocardiogram Preoperative clearance Recent myocardial infarction (~01/27/17) Surgical History AICD (automatic cardioverter/defibrillator) present Family History Other Cervical cancer Family history of hyperlipidemia Family history of hypertension Family history of multiple sclerosis Family history of myocardial infarction Lung cancer No significant family history Skin cancer Social History Smoking Status: Former smoker pack-years: 30 second hand exposure: No alcohol intake: current counseling provided: none substance use type: denies use current occupational status: retired Travel in the last 8 weeks: None household members: children housing: house current occupation: real estate current occupational exposures/hazards: Yes caffeine: Yes Meds Home Medications and Allergies Home Medications Medication Instructions Recorded Confirmed Type escitalopram oxalate 20 mg tablet 20 mg PO DAILY Depression 02/24/17 08/05/22 History biotin 10,000 mcg capsule 10,000 mcg PO DAILY Supplement 05/21/18 08/04/22 History cyanocobalamin (vitamin B-12) 1,000 mcg PO DAILY Supplement 07/17/21 08/04/22 History 1,000 mcg/15 mL oral liquid nitroglycerin 0.4 mg sublingual 0.4 mg sublingual Q5M PRN chest 09/17/21 08/04/22 Rx tablet pain #25 tabs furosemide 40 mg tablet (Lasix) 40 mg PO BID Fluid 12/15/21 08/04/22 History metoprolol succinate 50 mg 50 mg PO DAILY High blood pressure 03/08/22 08/04/22 History tablet,extended release 24 hr esomeprazole magnesium 40 mg 40 mg PO DAILY Acid reflux 04/19/22 08/04/22 History capsule,delayed release (Nexium) losartan 25 mg tablet 25 mg PO DAILY blood pressure #30 04/19/22 08/04/22 Rx tabs pramipexole 1.5 mg tablet 1.5 mg PO HS pain 05/11/22 08/04/22 History atorvastatin 40 mg tablet 40 mg PO HS Cholesterol 06/17/22 08/05/22 History clopidogrel 75 mg tablet 75 mg PO DAILY Anti Platelet 08/04/22 08/04/22 History pramipexole 1 mg tablet 2 mg PO HS Pain 08/05/22 08/05/22 History New Prescriptions to Start Prescriptions: Allergies Allergy/AdvReac Type Severity Reaction Status Date / Time No Known Allergies Allergy Verified 06/17/22 11:28 Exam Data for Last 24 hours Vital signs and Labs for Last 24 Hours: Temp Pulse Resp BP Pulse Ox 98.6 F 70 18 142/53 H 98 08/04/22 16:33 08/04/22 16:33 08/04/22 16:33 08/04/22 16:33 08/04/22 16:33 Laboratory Results - last 24 hr 08/04/22 12:32: WBC 8.4, RBC 3.53 L, Hgb 7.9 L, Hct 26.5 L, MCV 75.1 L, MCH 22.3 L, MCHC 29.7 L, RDW 16.5, Plt Count 409, MPV 8.3, Neut % (Auto) 81.4 H, Lymph % (Auto) 12.5, [place] % (Auto) 4.9, Eos % (Auto) 0.9, Baso % (Auto) 0.2, Neut # (Auto) 6.9, Lymph # (Auto) 1.1, [place] # (Auto) 0.4, Eos # (Auto) 0.1
[2022-08-04 18:08] LABS: Basophils % 0.1 % (0.1-2.0); Eosinophils % 0.4 % (0.1-12.0); Hematocrit 26.3 % (37.0-47.0); Hemoglobin 7.7 g/dL (12.2-16.2); Lymphocytes # 1.1 K/mm3 (0.7-4.5); Lymphocytes % 12.6 % (10-50); Mean Corpuscular HGB Conc 29.3 g/dL (31.8-35.4); Mean Corpuscular Hemoglobin 21.9 pg (27.0-31.2); Mean Corpuscular Volume 74.6 fl (81-99); Mean Platelet Volume 8.4 fl (7.4-10.4); Monocytes # 0.5 K/mm3 (0.1-1.0); Monocytes % 5.4 % (1.7-9.3); Neutrophils # 7.4 K/mm3 (1.8-7.8); Neutrophils % 81.4 % (37.0-80.0); Platelet Count 431 K/mm3 (142-424); Red Blood Count 3.53 M/mm3 (4.20-5.40); Red Cell Distribution Width 16.7 % (11.5-17.5)
[2022-08-04 19:52] LABS: Troponin I < 0.01 ng/ml (0.00-0.034)
[2022-08-05] VITALS (32 sets, daily range): BP systolic 92–141; BP diastolic 39–71; PULSE 73–92; RESP 16–22; TEMP 36.6–37.1; O2SAT 90–95; BMI 33.2
[2022-08-05 02:28] LABS: Troponin I < 0.01 ng/ml (0.00-0.034)
[2022-08-05 06:34] LABS: Chloride 101 mmol/L (98-107); Potassium 3.5 mmoL/L (3.5-5.1); Sodium 140 mmol/L (136-145)
[2022-08-05 06:35] LABS: Basophils % 0.1 % (0.1-2.0); Eosinophils # 0.1 K/mm3 (0.0-0.4); Eosinophils % 0.9 % (0.1-12.0); Hematocrit 25.7 % (37.0-47.0); Hemoglobin 7.6 g/dL (12.2-16.2); Lymphocytes # 1.2 K/mm3 (0.7-4.5); Lymphocytes % 13.9 % (10-50); Mean Corpuscular HGB Conc 29.7 g/dL (31.8-35.4); Monocytes # 0.5 K/mm3 (0.1-1.0); Monocytes % 5.7 % (1.7-9.3); Neutrophils # 6.8 K/mm3 (1.8-7.8); Neutrophils % 79.4 % (37.0-80.0); Platelet Count 400 K/mm3 (142-424); Red Blood Count 3.47 M/mm3 (4.20-5.40); Red Cell Distribution Width 16.6 % (11.5-17.5); White Blood Count 8.5 K/mm3 (4.8-10.8)
[2022-08-05 06:37] LABS: Anion Gap 12.5 mEq/L (5-15); Blood Urea Nitrogen 10 mg/dl (7-17); Carbon Dioxide 30 mmol/L (22.0-30.0); Creatinine Clearance Estimated 53 mL/min (50-200); Estimated Glomerular Filt Rate 81 ml/min (>60); GFR (African American) 97 ML/MIN (>60)
[2022-08-05 06:38] LABS: Calcium 8.1 mg/dl (8.4-10.2); Chol/HDL Ratio 2.5 (1-3.5); Cholesterol 74 mg/dl (140-200); Glucose 128 mg/dl (74-100); HDL Cholesterol 30 mg/dl (40-60); Magnesium 2.1 mg/dl (1.6-2.3); Triglycerides 147 mg/dl (30-150); VLDL Cholesterol 29 mg/dL (0-40)
--- NOTE | 2022-08-05 06:48 | PC.NURSE ---
PATIENT HAS HAD A QUIET NIGHT. NO C/O SOA/CP OR DISCOMFORT. 02 SAT 95% ON ROOM AIR. HAVE KEPT PATIENT NPO SINCE [place] FOR CARDIAC CONSULT.
[2022-08-05 06:50] LABS: Direct LDL Cholesterol < 30.00 mg/dL (100-129)
--- NOTE | 2022-08-05 07:48 | HMH.PHAINT1 ---
Pharmacy Intervention Comments: PATIENTS HOME MEDICATION LIST VERIFIED WITH E
--- NOTE | 2022-08-05 08:36 | EXP.CARD.PN ---
Subjective Subjective Date: 08/05/22 Time: 08:36 Principal diagnosis: Anemia, CHF, CAD Interval history: 81-year-old white female in bed in no acute distress. Still with some shortness of breath. Hemoglobin this a.m. has drifted down to 7.6 Renal functions normal Troponins normal x3 Chest x-ray shows no evidence of CHF Echocardiogram performed this morning with results pending Exam Data for Last 24 hours Vital signs and Labs for Last 24 Hours: Temp Pulse Resp BP Pulse Ox 98.2 F 86 18 122/52 L 94 L 08/05/22 08:00 08/05/22 08:00 08/05/22 08:00 08/05/22 08:00 08/05/22 08:00 Laboratory Results - last 24 hr 08/04/22 12:32: WBC 8.4, RBC 3.53 L, Hgb 7.9 L, Hct 26.5 L, MCV 75.1 L, MCH 22.3 L, MCHC 29.7 L, RDW 16.5, Plt Count 409, MPV 8.3, Neut % (Auto) 81.4 H, Lymph % (Auto) 12.5, [place] % (Auto) 4.9, Eos % (Auto) 0.9, Baso % (Auto) 0.2, Neut # (Auto) 6.9, Lymph # (Auto) 1.1, [place] # (Auto) 0.4, Eos # (Auto) 0.1, Baso # (Auto) 0.0 08/04/22 12:32: PT 10.3, INR 0.95, APTT 25.9 08/04/22 12:32: Sodium 142, Potassium 3.7, Chloride 104, Carbon Dioxide 28, Anion Gap 13.7, BUN 8, Creatinine 0.60, Estimated Creat Clear 53, Estimated GFR 96, Est GFR ( Amer) 116, Glucose 113 H, Calcium 8.4, Total Bilirubin 0.2, AST 32, ALT 22, Alkaline Phosphatase 192 H, Troponin I < 0.01, NT-Pro-B Natriuret Pep 910 H, Total Protein 7.0, Albumin 3.7, Globulin 3.3 H, Albumin/Globulin Ratio 1.1 08/04/22 13:02: SARS-CoV-2 (PCR) Not detected, Influenza A Untype (PCR) Not detected, Influenza Type B (PCR) Not detected 08/04/22 13:06: Lactate 1.6 08/04/22 17:45: WBC 9.0, RBC 3.53 L, Hgb 7.7 L, Hct 26.3 L, MCV 74.6 L, MCH 21.9 L, MCHC 29.3 L, RDW 16.7, Plt Count 431 H, MPV 8.4, Neut % (Auto) 81.4 H, Lymph % (Auto) 12.6, [place] % (Auto) 5.4, Eos % (Auto) 0.4, Baso % (Auto) 0.1, Neut # (Auto) 7.4, Lymph # (Auto) 1.1, [place] # (Auto) 0.5, Eos # (Auto) 0.0, Baso # (Auto) 0.0 08/04/22 19:25: Troponin I < 0.01 08/05/22 01:05: Troponin I < 0.01 08/05/22 05:46: WBC 8.5, RBC 3.47 L, Hgb 7.6 L, Hct 25.7 L, MCV 74.0 L, MCH 22.0 L, MCHC 29.7 L, RDW 16.6, Plt Count 400, MPV 8.0, Neut % (Auto) 79.4, Lymph % (Auto) 13.9, [place] % (Auto) 5.7, Eos % (Auto) 0.9, Baso % (Auto) 0.1, Neut # (Auto) 6.8, Lymph # (Auto) 1.2, [place] # (Auto) 0.5, Eos # (Auto) 0.1, Baso # (Auto) 0.0 08/05/22 05:46: Sodium 140, Potassium 3.5, Chloride 101, Carbon Dioxide 30, Anion Gap 12.5, BUN 10, Creatinine 0.70, Estimated Creat Clear 53, Estimated GFR 81, Est GFR ( Amer) 97, Glucose 128 H, Calcium 8.1 L, Magnesium 2.1, Triglycerides 147, Cholesterol 74 L, LDL Cholesterol Direct < 30.00 L, VLDL Cholesterol 29, HDL Cholesterol 30 L, Cholesterol/HDL Ratio 2.5 08/05/22 08:15: Crossmatch (AHG) See Detail I & O for Last 24 hours: Intake & Output 08/02/22 08/03/22 08/04/22 08/05/22 11:59 11:59 11:59 11:59 Intake Total 820 / 820 Output Total 0 / 0 Balance 820 / 820 Weight 164 lb 14.4 oz Constitutional Constitutional: no acute distress *Routine Respiratory Exam Respiratory: Present wheezes *Routine Cardiovascular Exam Cardiovascular: Present RRR *Routine Extremities Exam Extremities: Present edema *Routine Neurological Exam Neurological: Present alert, oriented X3 and CN II-XII intact Progress Note: A&P Assessment and plan (1) Acute CHF: Status: Acute (2) HLD (hyperlipidemia): Status: Chronic (3) CAD (coronary artery disease): Status: Chronic (4) HTN (hypertension): Status: Chronic (5) Pulmonary edema: Status: Acute (6) Dyspnea: Status: Chronic (7) Anemia: Status: Chronic (8) AICD (automatic cardioverter/defibrillator) present: Status: Chronic Assessment and Plan Assessment and Plan for All Diagnoses:: 1.? Congestive heart failure exacerbation related to significant anemia Check echocardiogram to evaluate both left ventricular ejection fraction and diastolic function Start IV Lasix 40 mg twice daily along with spironolactone 2
--- NOTE | 2022-08-05 08:45 | HMH.PHAINT1 ---
Pharmacy Intervention Comments: VERIFIED HOME MEDICATION LIST USING LIST FROM OUTPATIENT PHARMACY AND SPEAKING WITH CARDIOLOGY
--- NOTE | 2022-08-05 13:25 | EXP.PN ---
Subjective *Date: 08/05/22 *Time: 13:25 Interval history: Patient suffered from persistent shortness of breath issues overnight. Denies fevers, chills. Patient states breathing slightly better after IV Lasix administration. Exam Data for Last 24 hours Vital signs and Labs for Last 24 Hours: Temp Pulse Resp BP Pulse Ox 98.4 F 92 H 18 127/47 L 95 08/05/22 12:25 08/05/22 12:25 08/05/22 12:25 08/05/22 12:25 08/05/22 12:25 Laboratory Results - last 24 hr 08/04/22 13:02: SARS-CoV-2 (PCR) Not detected, Influenza A Untype (PCR) Not detected, Influenza Type B (PCR) Not detected 08/04/22 13:06: Lactate 1.6 08/04/22 17:45: WBC 9.0, RBC 3.53 L, Hgb 7.7 L, Hct 26.3 L, MCV 74.6 L, MCH 21.9 L, MCHC 29.3 L, RDW 16.7, Plt Count 431 H, MPV 8.4, Neut % (Auto) 81.4 H, Lymph % (Auto) 12.6, [place] % (Auto) 5.4, Eos % (Auto) 0.4, Baso % (Auto) 0.1, Neut # (Auto) 7.4, Lymph # (Auto) 1.1, [place] # (Auto) 0.5, Eos # (Auto) 0.0, Baso # (Auto) 0.0 08/04/22 19:25: Troponin I < 0.01 08/05/22 01:05: Troponin I < 0.01 08/05/22 05:46: WBC 8.5, RBC 3.47 L, Hgb 7.6 L, Hct 25.7 L, MCV 74.0 L, MCH 22.0 L, MCHC 29.7 L, RDW 16.6, Plt Count 400, MPV 8.0, Neut % (Auto) 79.4, Lymph % (Auto) 13.9, [place] % (Auto) 5.7, Eos % (Auto) 0.9, Baso % (Auto) 0.1, Neut # (Auto) 6.8, Lymph # (Auto) 1.2, [place] # (Auto) 0.5, Eos # (Auto) 0.1, Baso # (Auto) 0.0 08/05/22 05:46: Sodium 140, Potassium 3.5, Chloride 101, Carbon Dioxide 30, Anion Gap 12.5, BUN 10, Creatinine 0.70, Estimated Creat Clear 53, Estimated GFR 81, Est GFR ( Amer) 97, Glucose 128 H, Calcium 8.1 L, Magnesium 2.1, Triglycerides 147, Cholesterol 74 L, LDL Cholesterol Direct < 30.00 L, VLDL Cholesterol 29, HDL Cholesterol 30 L, Cholesterol/HDL Ratio 2.5 08/05/22 08:15: Blood Type A Positive, Antibody Screen Negative, Crossmatch (AHG) See Detail I & O for Last 24 hours: Intake & Output 08/02/22 08/03/22 08/04/22 08/05/22 23:59 23:59 23:59 23:59 Intake Total 240 / 460 580 / 580 Output Total 0 / 0 Balance 240 / 460 580 / 580 Weight 73.709 kg 74.797 kg Constitutional Constitutional: mild distress *Routine HEENT Exam Head: Present normocephalic Eye: Present EOMI and normal accommodation ENT: Present mucous membranes moist *Routine Neck Exam Neck: Present supple and full ROM *Routine Respiratory Exam Respiratory: Present decreased breath sounds and diminished air movement *Routine Cardiovascular Exam Cardiovascular: Present RRR, Normal S1 and Normal S2 *Routine Abdominal Exam Abdominal: Present soft and normoactive bowel sounds *Routine Rectal Exam Comments: deferred *Routine Exam Comments: deferred *Routine Extremities Exam Extremities: Present edema and full ROM *Routine Skin Exam Skin: Present intact and warm *Routine Neurological Exam Neurological: Present alert, oriented X3 and moving all extremities Comments: Very nice patient who is extremely hard of hearing Assessment and Plan *Assessment and plan (1) Acute CHF: Status: Acute Category: Medical Code(s): I50.9 - Heart failure, unspecified (2) CHF (congestive heart failure): Status: Chronic Qualifiers: Heart failure type: combined systolic and diastolic Heart failure chronicity: chronic Qualified Code(s): I50.42 - Chronic combined systolic (congestive) and diastolic (congestive) heart failure Category: Medical Code(s): I50.9 - Heart failure, unspecified (3) Anemia: Status: Chronic Qualifiers: Anemia type: unspecified type Qualified Code(s): D64.9 - Anemia, unspecified Category: Medical Code(s): D64.9 - Anemia, unspecified (4) Peripheral edema: Status: Chronic Category: Medical Code(s): R60.9 - Edema, unspecified (5) HTN (hypertension): Status: Chronic Qualifiers: Hypertension type: essential hypertension Qualified Code(s): I10 - Essential (primary) hypertension Category: Medical
--- NOTE | 2022-08-05 20:35 | PC.NURSE ---
2ND UNIT COMPLETED AT 2019.
[2022-08-05 21:26] LABS: Hematocrit 31.7 % (37.0-47.0)
[2022-08-05 21:29] LABS: Hemoglobin 9.9 g/dL (12.2-16.2)
--- NOTE | 2022-08-05 22:26 | PC.NURSE ---
PATIENT RECEIVED 2 UNITS PRBCs TODAY. NO S/S OF ADVERSE REACTIONS. DENIES SOA,CP, DISCOMFORT.
[2022-08-06] VITALS: BP 127/49; PULSE 84; PULSE 88; RESP 20; TEMP 36.8; O2SAT 91
[2022-08-06 04:00] VITALS: BP 143/78; PULSE 82; PULSE 87; RESP 18; TEMP 36.7; O2SAT 92; BMI 34.3
--- NOTE | 2022-08-06 05:20 | PC.NURSE ---
Excited to go home as she has a new male friend. 02 sats 92 % on room air. Denies SOA or chest pain. Has paced rhythm on the monitor. Refuses scuds.
[2022-08-06 05:58] LABS: Basophils % 0.2 % (0.1-2.0); Eosinophils # 0.1 K/mm3 (0.0-0.4); Eosinophils % 0.7 % (0.1-12.0); Hematocrit 30.7 % (37.0-47.0); Hemoglobin 9.5 g/dL (12.2-16.2); Lymphocytes # 1.3 K/mm3 (0.7-4.5); Mean Corpuscular HGB Conc 30.8 g/dL (31.8-35.4); Mean Corpuscular Hemoglobin 22.8 pg (27.0-31.2); Mean Platelet Volume 7.9 fl (7.4-10.4); Monocytes # 0.6 K/mm3 (0.1-1.0); Monocytes % 5.6 % (1.7-9.3); Neutrophils # 9.1 K/mm3 (1.8-7.8); Neutrophils % 81.5 % (37.0-80.0); Platelet Count 336 K/mm3 (142-424); Red Blood Count 4.15 M/mm3 (4.20-5.40); Red Cell Distribution Width 17.6 % (11.5-17.5); White Blood Count 11.1 K/mm3 (4.8-10.8)
[2022-08-06 06:05] LABS: Chloride 99 mmol/L (98-107); Potassium 3.7 mmoL/L (3.5-5.1); Sodium 137 mmol/L (136-145)
[2022-08-06 06:07] LABS: Blood Urea Nitrogen 17 mg/dl (7-17); Creatinine Clearance Estimated 55 mL/min (50-200); Estimated Glomerular Filt Rate 81 ml/min (>60); GFR (African American) 97 ML/MIN (>60)
[2022-08-06 06:08] LABS: Anion Gap 10.7 mEq/L (5-15); Calcium 8.1 mg/dl (8.4-10.2); Carbon Dioxide 31 mmol/L (22.0-30.0); Chol/HDL Ratio 2.3 (1-3.5); Cholesterol 75 mg/dl (140-200); Glucose 95 mg/dl (74-100); HDL Cholesterol 32 mg/dl (40-60); Magnesium 2.3 mg/dl (1.6-2.3); Triglycerides 123 mg/dl (30-150); VLDL Cholesterol 25 mg/dL (0-40)
[2022-08-06 06:14] VITALS: PULSE 80; PULSE 82
[2022-08-06 06:29] LABS: Direct LDL Cholesterol < 30.00 mg/dL (100-129)
[2022-08-06 07:12] VITALS: BP 132/58; PULSE 91; RESP 18; TEMP 37.2; O2SAT 92
--- NOTE | 2022-08-06 08:31 | PC.NURSE ---
COURTESY TECH NOTE; ROUNDED ON PT 0745, PT DENIED NEED FOR DRINK, ASSISTANCE WITH RESTROOM. PT BRUSHING TEETH, WASHING FACE INDEPENDENTLY AT THIS TIME, DENIED NEED FOR ASSISTANCE, ACTIVITY TOLERATED WELL. CALL LIGHT WITHIN REACH, NO FURTHER REQUESTS AT THIS TIME Jero GUZMAN, JHONNY
--- NOTE | 2022-08-06 08:45 | EXP.CARD.PN ---
Subjective Subjective Date: 08/06/22 Time: 08:45 Principal diagnosis: Anemia, CHF, CAD Interval history: 81-year-old white female in bed in no acute distress. Still with some conversational dyspnea but patient states her breathing has improved. There is significantly less wheezing on exam today. Hemoglobin was transfused up to 9.9 and currently 9.5 this a.m. Echocardiogram shows unable to adequately assess ejection fraction but with grade 2 diastolic dysfunction and apical wall hypokinesis to akinesis. Mild left atrial enlargement. Moderate aortic valve regurgitation noted. Exam Data for Last 24 hours Vital signs and Labs for Last 24 Hours: Temp Pulse Resp BP Pulse Ox 98.9 F 91 H 18 132/58 L 92 L 08/06/22 07:12 08/06/22 07:12 08/06/22 07:12 08/06/22 07:12 08/06/22 07:12 Laboratory Results - last 24 hr 08/05/22 08:15: Blood Type A Positive, Antibody Screen Negative, Crossmatch (AHG) See Detail 08/05/22 21:15: Hgb 9.9 L D, Hct 31.7 L 08/06/22 05:42: WBC 11.1 H D, RBC 4.15 L, Hgb 9.5 L, Hct 30.7 L, MCV 74.0 L, MCH 22.8 L, MCHC 30.8 L, RDW 17.6 H, Plt Count 336, MPV 7.9, Neut % (Auto) 81.5 H, Lymph % (Auto) 12.0, [place] % (Auto) 5.6, Eos % (Auto) 0.7, Baso % (Auto) 0.2, Neut # (Auto) 9.1 H, Lymph # (Auto) 1.3, [place] # (Auto) 0.6, Eos # (Auto) 0.1, Baso # (Auto) 0.0 08/06/22 05:42: Sodium 137, Potassium 3.7, Chloride 99, Carbon Dioxide 31 H, Anion Gap 10.7, BUN 17 D, Creatinine 0.70, Estimated Creat Clear 55, Estimated GFR 81, Est GFR ( Amer) 97, Glucose 95 D, Calcium 8.1 L, Magnesium 2.3, Triglycerides 123, Cholesterol 75 L, LDL Cholesterol Direct < 30.00 L, VLDL Cholesterol 25, HDL Cholesterol 32 L, Cholesterol/HDL Ratio 2.3 I & O for Last 24 hours: Intake & Output 08/03/22 08/04/22 08/05/22 08/06/22 11:59 11:59 11:59 11:59 Intake Total 820 / 820 1740 / 1740 Output Total 0 / 0 401 / 401 Balance 820 / 820 1339 / 1339 Weight 164 lb 14.4 oz 170 lb 9 oz Constitutional Constitutional: no acute distress *Routine Respiratory Exam Respiratory: Present decreased breath sounds, wheezes and diminished air movement *Routine Cardiovascular Exam Cardiovascular: Present RRR and murmur *Routine Extremities Exam Extremities: Present edema Progress Note: A&P Assessment and plan (1) Acute CHF: Status: Acute (2) CHF (congestive heart failure): Status: Chronic (3) Anemia: Status: Chronic (4) Peripheral edema: Status: Chronic (5) HTN (hypertension): Status: Chronic (6) CAD (coronary artery disease): Status: Chronic (7) HLD (hyperlipidemia): Status: Chronic (8) Pulmonary edema: Status: Acute (9) Dyspnea: Status: Chronic (10) AICD (automatic cardioverter/defibrillator) present: Status: Chronic Assessment and Plan Assessment and Plan for All Diagnoses:: 1.? Congestive heart failure exacerbation related to significant anemia Echo unable to adequately assess LVEF. Grade 2 diastolic dysfunction, mild LAE, moderate aortic regurgitation noted. Switch Lasix to oral 40 mg daily along with spironolactone 25 mg daily Continue metoprolol and losartan for history of recovered cardiomyopathy 2.? Coronary artery disease with prior coronary stenting Troponins normal x3 Hold aspirin and Plavix at this time 3.? History of iron deficiency anemia Hemoglobin transfused up to 9.5 Check stool guaiac Consider surgery consult for possible endoscopy-defer to Dr. David 4.? AICD/[employer]-D in situ with generator change ([facility]) 12/2021 Interrogation showed no arrhythmias. 5.? Hyperlipidemia Continue statin therapy 6.? Centrilobular emphysema with asthma Previous smoker Recent evaluation by pulmonary CT of chest, 04/2022 no acute process with no suspicious nodules Clinically stable from a cardiac standpoint for discharge home. Home medication recommendations: Furosemide 40 mg daily Spironolactone 25 mg twice daily Metoprolol succinate 50 mg daily Entresto
[2022-08-06 10:57] VITALS: BP 124/62; PULSE 83; RESP 18; TEMP 37.2; O2SAT 93
[2022-08-06 12:00] VITALS: PULSE 70
--- NOTE | 2022-08-06 14:55 | EXP.DC.SUM ---
General Admission date:: 08/04/22 Discharge date: 08/06/22 HPI HPI HPI: Patient with CAD cardiac stents, COPD, CHF, AICD, status post myocardial infarction, anemia. Patient admitted for shortness of breath for several days. Patient also admits to increased lower extremity swelling, orthopnea, PND, sleeping on 2 pillows. Patient called her continuous improvement coordinator Dr. Sawant about shortness of breath, recommended to come to hospital for evaluation. Admits to coronary disease with 5 previous heart stents. Also admits to previous diagnosis of congestive heart failure. Denies recent COPD exacerbations. Hospital Course Hospital Course Hospital Course: Patient admitted to hospital complaining of shortness of breath, and diagnosed with acute CHF. Patient maintained on IV furosemide throughout hospitalization. Patient evaluated by cardiology, and started on Entresto medication. Serial troponins within normal limits. Telemetry showed paced rhythm with occasional PVCs. Patient's aspirin/Plavix placed on hold during hospitalization secondary to symptomatic anemia. Patient received 2 units packed RBCs 08/05/2022, then monitored overnight to ensure patient hemodynamically stable. After long goals of care discussion between patient, cardiology, and hospitalist Dr. David, patient ultimately discharged home with instructions to follow-up with primary care physician and cardiology on outpatient basis. Patient's COPD nebs refilled prior to hospital discharge. Patient also discharged with albuterol as needed inhaler by Dr. David. Patient had echocardiogram done during hospitalization noting moderate aortic regurg. Echocardiogram also showed grade 2 diastolic dysfunction. Patient' this s moderate aortic regurg will be followed by cardiology consult in outpatient clinic after hospital disposition. Exam Data for Last 24 hours Vital signs and Labs for Last 24 Hours: Temp Pulse Resp BP Pulse Ox 99.0 F 70 18 124/62 93 L 08/06/22 10:57 08/06/22 12:00 08/06/22 10:57 08/06/22 10:57 08/06/22 10:57 Laboratory Results - last 24 hr 08/05/22 08:15: Blood Type A Positive, Antibody Screen Negative, Crossmatch (AHG) See Detail 08/05/22 21:15: Hgb 9.9 L D, Hct 31.7 L 08/06/22 05:42: WBC 11.1 H D, RBC 4.15 L, Hgb 9.5 L, Hct 30.7 L, MCV 74.0 L, MCH 22.8 L, MCHC 30.8 L, RDW 17.6 H, Plt Count 336, MPV 7.9, Neut % (Auto) 81.5 H, Lymph % (Auto) 12.0, [place] % (Auto) 5.6, Eos % (Auto) 0.7, Baso % (Auto) 0.2, Neut # (Auto) 9.1 H, Lymph # (Auto) 1.3, [place] # (Auto) 0.6, Eos # (Auto) 0.1, Baso # (Auto) 0.0 08/06/22 05:42: Sodium 137, Potassium 3.7, Chloride 99, Carbon Dioxide 31 H, Anion Gap 10.7, BUN 17 D, Creatinine 0.70, Estimated Creat Clear 55, Estimated GFR 81, Est GFR ( Amer) 97, Glucose 95 D, Calcium 8.1 L, Magnesium 2.3, Triglycerides 123, Cholesterol 75 L, LDL Cholesterol Direct < 30.00 L, VLDL Cholesterol 25, HDL Cholesterol 32 L, Cholesterol/HDL Ratio 2.3 I & O for Last 24 hours: Intake & Output 08/03/22 08/04/22 08/05/22 08/06/22 23:59 23:59 23:59 23:59 Intake Total 240 / 460 1840 / 1840 480 / 480 Output Total 400 / 400 Balance 240 / 460 1839 / 1639 80 / 80 Weight 73.709 kg 74.79 kg 77.366 kg Microbiology Reports for the Last 24 Hours: Microbiology 08/04/22 13:55 Blood Blood Culture - Preliminary NO GROWTH AFTER 48 HOURS 08/04/22 13:07 Blood Blood Culture - Preliminary NO GROWTH AFTER 48 HOURS *Routine HEENT Exam Head: Present normocephalic Eye: Present EOMI and normal accommodation ENT: Present mucous membranes moist Comments: Extremely nice but very hard of hearing *Routine Respiratory Exam Respiratory: Present decreased breath sounds; Absent accessory muscle use *Routine Cardiovascular Exam Cardiovascular: Present murmur *Routine Abdominal Exam Abdominal: Present soft and normoactive bowel sounds; Absent rebound or guarding *Routine Rectal Exam Commen
[2022-08-06 18:53] LABS: Adenovirus,PCR Not Detected (NotDetected); Bordetella Pertussis Not Detected (NotDetected); Chlamydophila Pneumoniae, PCR Not Detected (NotDetected); Coronavirus 19, PCR Not Detected (NotDetected); Coronavirus 229E Not Detected (NotDetected); Coronavirus NL63 Not Detected (NotDetected); Coronavirus OC43 Not Detected (NotDetected); Coronovirus HKU1,PCR Not Detected (NotDetected); Human Metapneumovirus Not Detected (NotDetected); Influenza A, PCR Not Detected (NotDetected); Influenza AH1, 2009 Not Detected (NotDetected); Influenza AH1, PCR Not Detected (NotDetected); Influenza AH3,PCR Not Detected (NotDetected); Influenza B, PCR Not Detected (NotDetected); Mycoplasma Pneumoniae, PCR Not Detected (NotDetected); Parainfluenza 1, PCR Not Detected (NotDetected); Parainfluenza 2, PCR Not Detected (NotDetected); Parainfluenza 3, PCR Not Detected (NotDetected); Parainfluenza 4, PCR Not Detected (NotDetected); Respiratory Syncytial Virus Not Detected (NotDetected); Rhinovirus/Enterovirus Not Detected (NotDetected)
--- NOTE | 2022-08-09 11:11 | SW/DCPLANNER ---
Follow up phone call was made this morning: no answer at this time.
--- NOTE | 2022-08-10 12:31 | CARE MANAGER ---
Attempted to contact patient x2 related to hospital discharge. Left VM. MARLY Barriga
== END 2022-08-06 15:32 | disposition home or self-care (01) ==
LOC: ER 13:06 → 2ND 15:36
PROVIDERS: Admitting Provider Internal Medicine; Emergency Provider Emergency Medicine; PCP Family Medicine; Visit Provider Internal Medicine
DX: E78.2 Mixed hyperlipidemia; I48.92 Unspecified atrial flutter; I25.118 Atherosclerotic heart disease of native coronary artery with other forms of angina pectoris; I50.43 Acute on chronic combined systolic (congestive) and diastolic (congestive) heart failure; Z95.810 Presence of automatic (implantable) cardiac defibrillator; I44.7 Left bundle-branch block, unspecified; I11.0 Hypertensive heart disease with heart failure; I65.23 Occlusion and stenosis of bilateral carotid arteries; I25.2 Old myocardial infarction; Z95.2 Presence of prosthetic heart valve; Z95.5 Presence of coronary angioplasty implant and graft; J44.9 Chronic obstructive pulmonary disease, unspecified; J43.2 Centrilobular emphysema
CPT/HCPCS: G0378; 36415; 71045; 80048; 80053; 80061; 83605; 83735; 83880; 84484; 85014; 85018; 85025; 85610; 85730; 86850; 87040; 87581; 87632; 87635; 87636; 87798; 93005; 93306; 94640; 99285; C9803; P9016; U0003; U0005

== ENCOUNTER → 2022-08-09 11:47 | Outpatient (CLI) | payer MEDICARE, BC, SELFPAY ==
[2022-08-09 12:34] LABS: Blood Urea Nitrogen 17 mg/dl (7-17); Estimated Glomerular Filt Rate 81 ml/min (>60); GFR (African American) 97 ML/MIN (>60)
== END ==
PROVIDERS: PCP Family Medicine; Visit Provider Internal Medicine Pulmonary Disease
DX: Z01.812 Encounter for preprocedural laboratory examination (principal); R06.02 Shortness of breath
CPT/HCPCS: 36415; 82565; 84520

== ENCOUNTER → 2022-08-10 10:33 | Outpatient (CLI) | payer MEDICARE, BC, SELFPAY ==
--- NOTE | 2022-08-10 10:38 | CT_ITS ---
FINAL REPORT CLINICAL HISTORY: sob high resolution x 3 COMPARISON: April 23, 2022 FINDINGS: Axial images through the chest was performed by computed tomography. Sagittal and coronal reformatted images were obtained and reviewed. High-resolution technique was performed with supine and prone inspiration and prone inspiration sequences. There is a left subclavian pacemaker. The heart is normal size. There are multiple nodules in the right lower lobe medial which are calcified likely reflecting granulomas. There is no evidence of interstitial fibrosis or bronchiectasis. No emphysematous changes are present. There is no air trapping on expiration views. There is a small hiatal hernia. There is evidence of prior cholecystectomy. IMPRESSION: No evidence of interstitial fibrosis or bronchiectasis. No air trapping on expiration views. Reviewed, Interpreted and Dictated by Jorgito Abdi III, MD Transcribed by Jose Mcdonough Authenticated and [facility]
== END ==
PROVIDERS: PCP Family Medicine; Visit Provider Internal Medicine Pulmonary Disease
DX: J84.9 Interstitial pulmonary disease, unspecified (principal); R06.02 Shortness of breath
CPT/HCPCS: 71250

== ENCOUNTER → 2022-09-08 14:38 | Outpatient (CLI) | payer MEDICARE, BC, SELFPAY ==
--- NOTE | 2022-09-08 14:45 | XR_ITS ---
FINAL REPORT CLINICAL HISTORY: chest wall pain at aicd site FINDINGS: TWO VIEW CHEST The heart size is normal. The mediastinum is normal. The lungs are clear. There is no pneumothorax. There is a left subclavian 3-lead pacemaker having an unremarkable in appearance. IMPRESSION: No acute cardiopulmonary process. Reviewed, Interpreted and Dictated by Millicent Kramer MD Transcribed by Radhames Michaels Authenticated and [facility]
== END ==
PROVIDERS: PCP Family Medicine; Visit Provider Internal Medicine
DX: E78.5 Hyperlipidemia, unspecified (principal); I10 Essential (primary) hypertension; I25.10 Atherosclerotic heart disease of native coronary artery without angina pectoris; I44.7 Left bundle-branch block, unspecified; I50.9 Heart failure, unspecified; I65.29 Occlusion and stenosis of unspecified carotid artery; R06.02 Shortness of breath; R07.89 Other chest pain; Z95.810 Presence of automatic (implantable) cardiac defibrillator; I42.8 Other cardiomyopathies
CPT/HCPCS: 71046

== ENCOUNTER 2023-01-17 13:17 | Observation (INO) | payer MEDICARE, BC, SELFPAY ==
[2023-01-17] VITALS (15 sets, daily range): BP systolic 117–165; BP diastolic 41–77; PULSE 60–80; RESP 16–20; TEMP 36.3–36.9; O2SAT 95–100; BMI 32.3
[2023-01-17 12:04] LABS: Basophils % 0.2 % (0.1-2.0); Eosinophils # 0.1 K/mm3 (0.0-0.4); Eosinophils % 1.1 % (0.1-12.0); Hematocrit 25.9 % (37.0-47.0); Lymphocytes # 1.1 K/mm3 (0.7-4.5); Lymphocytes % 14.5 % (10-50); Mean Corpuscular HGB Conc 30.7 g/dL (31.8-35.4); Mean Corpuscular Hemoglobin 22.1 pg (27.0-31.2); Mean Corpuscular Volume 71.9 fl (81-99); Mean Platelet Volume 8.1 fl (7.4-10.4); Monocytes # 0.4 K/mm3 (0.1-1.0); Monocytes % 5.5 % (1.7-9.3); Neutrophils # 6.1 K/mm3 (1.8-7.8); Neutrophils % 78.8 % (37.0-80.0); Platelet Count 369 K/mm3 (142-424); White Blood Count 7.8 K/mm3 (4.8-10.8)
[2023-01-17 12:37] LABS: Alanine Aminotransferase 17 U/L (12-78); Albumin Level 3.4 g/dl (3.5-5.0); Alkaline Phosphatase 151 U/L (38-126); Anion Gap 8.1 mEq/L (5-15); Aspartate Amino Transferase 26 U/L (14-36); Bilirubin,Direct 0.1 mg/dl (0.0-0.4); Bilirubin,Indirect 0.1 mg/dL (0.0-0.9); Bilirubin,Total 0.2 mg/dl (0.2-1.3); Bilirubin,Unconjugated 0.1 mg/dL (0.0-1.1); Blood Urea Nitrogen 12 mg/dl (7-17); Carbon Dioxide 27 mmol/L (22.0-30.0); Chloride 104 mmol/L (98-107); Chol/HDL Ratio 2.5 (1-3.5); Cholesterol 80 mg/dl (140-200); Estimated Glomerular Filt Rate 80 ml/min (>60); GFR (African American) 97 ML/MIN (>60); Glucose 89 mg/dl (74-100); HDL Cholesterol 32 mg/dl (40-60); Magnesium 2.1 mg/dl (1.6-2.3); Potassium 4.1 mmoL/L (3.5-5.1); Sodium 135 mmol/L (136-145); Total Protein,Serum 6.4 g/dl (6.3-8.2); Triglycerides 191 mg/dl (30-150); VLDL Cholesterol 38 mg/dL (0-40)
[2023-01-17 12:53] LABS: Free T4 (Free Thyroxine) 0.94 ng/dl (0.78-2.19)
[2023-01-17 13:06] LABS: Thyroid Stimulating Hormone 0.14 uIU/mL (0.465-4.68)
--- NOTE | 2023-01-17 13:49 | EXP.CARD.CON ---
History of Present Illness History of Present Illness Consult date: 01/17/23 Requesting physician: Haim Carlin Consult reason: chest pain and shortness of breath Chief complaint: chest pain and soa History of present illness: 82-year-old white female with past medical history of coronary artery disease, heart failure with improved ejection fraction, hypertension, chronic anemia requiring transfusions, diastolic heart failure, moderate aortic regurgitation, carotid artery stenosis and status post biventricular AICD presented to cardiology clinic today with complaints of increased chest pain and shortness of breath x 5 days requiring frequent use of nitroglycerin. Patient reports she has had left anterior chest pressure radiating into neck and down left arm intermittently x 5 days associated with shortness of breath. Patient reports pain is somewhat improved with nitroglycerin and rest and exacerbated with activity. Given patient's history of anemia requiring blood transfusions patient was admitted for further evaluation for anemia and chest pain. EKG in office showed an atrial sensed ventricular paced rhythm at a rate of 74. Labs as follow: WBC 7.8, red blood cells 3.6, hemoglobin 8, hematocrit 25.9, platelet count 369, sodium 135, potassium 4.1, creatinine 0.7. Patient will be typed and crossed and transfused with [address] [facility] Disclaimer: The information contained in this section may have been updated after the patient was seen, as this information can be updated by other users. Medical History Anemia Atrial flutter CAD (coronary artery disease) Carotid artery stenosis Chest wall pain CHF (congestive heart failure) Edema Exertional dyspnea Hernia HLD (hyperlipidemia) HTN (hypertension) Left bundle branch block (LBBB) on electrocardiogram Moderate persistent asthma Preoperative clearance Recent myocardial infarction (~01/27/17) Restrictive lung disease SOB (shortness of breath) Surgical History AICD (automatic cardioverter/defibrillator) present Family History Other Cervical cancer Family history of hyperlipidemia Family history of hypertension Family history of multiple sclerosis Family history of myocardial infarction Lung cancer No significant family history Skin cancer Social History (Updated 01/17/23 @ 14:16 by Pamela Tidwell RN) Smoking Status: Current every day smoker second hand exposure: No alcohol intake: never counseling provided: none substance use type: denies use current occupational status: retired Travel in the last 8 weeks: None household members: children housing: house current occupation: real estate current occupational exposures/hazards: Yes caffeine: Yes Review of Systems Review of Systems Review of systems:: pertinent systems reviewed and negative unless documented below *Cardiovascular Cardiovascular: Reports chest pain and Reports dyspnea *Respiratory Respiratory: Reports dyspnea Exam Data for Last 24 hours Vital signs and Labs for Last 24 Hours: Temp Pulse Resp BP Pulse Ox O2 Del Method 98.0 F 61 18 117/41 L 99 Room Air 01/17/23 13:43 01/17/23 13:43 01/17/23 13:43 01/17/23 13:43 01/17/23 13:43 01/17/23 13:43 Laboratory Results - last 24 hr 01/17/23 11:32: WBC 7.8, RBC 3.60 L, Hgb 8.0 L, Hct 25.9 L, MCV 71.9 L, MCH 22.1 L, MCHC 30.7 L, RDW 17.0, Plt Count 369, MPV 8.1, Neut % (Auto) 78.8, Lymph % (Auto) 14.5, [place] % (Auto) 5.5, Eos % (Auto) 1.1, Baso % (Auto) 0.2, Neut # (Auto) 6.1, Lymph # (Auto) 1.1, [place] # (Auto) 0.4, Eos # (Auto) 0.1, Baso # (Auto) 0.0, Sodium 135 L, Potassium 4.1, Chloride 104, Carbon Dioxide 27, Anion Gap 8.1, BUN 12, Creatinine 0.70, Estimated GFR 80, Est GFR ( Amer) 97, Glucose 89, Calcium 8.0 L, Magnesium 2.1, Total Bilirubin 0
[2023-01-17 14:54] LABS: Troponin I < 0.01 ng/ml (0.00-0.034)
--- NOTE | 2023-01-17 15:35 | PC.NURSE ---
Blood started at 75 ml/hr
--- NOTE | 2023-01-17 15:38 | EXP.HP ---
History of Present Illness *Admission Date: 01/17/23 *Reason for visit:: cheat pain *History of present illness: Ms. Hinojosa is a pleasant 82-year-old female with past medical history of CAD, heart failure, hypertension, chronic anemia, persistent asthma, restrictive lung disease, and BiV AICD. She presented to the cardiology clinic today as an outpatient with increased chest discomfort and shortness of breath for the past week. States that she has been having some increased chest pressure that will radiate to her neck while exerting herself. Resolves with rest and nitroglycerin. Denies any syncope, loss of consciousness, pain at rest. States she has pain onset like this when her hemoglobin is low. Denies any melenic stools, blood per rectum, hematemesis. On eval in cardiology clinic, she had an EKG showing V paced rhythm. Initial labs obtained showing hemoglobin of 8. Medicine was consulted for admission for unstable angina, need for transfusion, need for further workup of her chest pain. On arrival to the floor, patient states she is feeling okay at this time. No active chest pain at the moment. Cardiology consulted to assist with care. Stable on room air, afebrile [facility] Disclaimer: The information contained in this section may have been updated after the patient was seen, as this information can be updated by other users. Medical History Anemia Atrial flutter CAD (coronary artery disease) Carotid artery stenosis Chest wall pain CHF (congestive heart failure) Edema Exertional dyspnea Hernia HLD (hyperlipidemia) HTN (hypertension) Left bundle branch block (LBBB) on electrocardiogram Moderate persistent asthma Preoperative clearance Recent myocardial infarction (~01/27/17) Restrictive lung disease SOB (shortness of breath) Surgical History AICD (automatic cardioverter/defibrillator) present Family History No significant family history Skin cancer Cervical cancer Family history of hypertension Family history of multiple sclerosis Family history of myocardial infarction Lung cancer Family history of hyperlipidemia Social History Smoking Status: Current every day smoker second hand exposure: No alcohol intake: never counseling provided: none substance use type: denies use current occupational status: retired Travel in the last 8 weeks: None household members: children housing: house current occupation: real estate current occupational exposures/hazards: Yes caffeine: Yes Review of Systems Review of Systems Review of systems (narrative): 14 point review of systems performed, pertinent positives and negatives as per HPI Meds Home Medications and Allergies Home Medications Medication Instructions Recorded Confirmed Type escitalopram oxalate 20 mg tablet 20 mg PO DAILY Depression 02/24/17 01/17/23 History biotin 10,000 mcg capsule 10,000 mcg PO DAILY Supplement 05/21/18 01/17/23 History nitroglycerin 0.4 mg sublingual 0.4 mg sublingual Q5M PRN chest 09/17/21 01/17/23 Rx tablet pain #25 tabs metoprolol succinate 50 mg 50 mg PO DAILY High blood pressure 03/08/22 01/17/23 History tablet,extended release 24 hr pramipexole 1.5 mg tablet 1.5 mg PO HS pain 05/11/22 01/17/23 History clopidogrel 75 mg tablet 75 mg PO DAILY Anti Platelet 08/04/22 01/17/23 History albuterol sulfate 90 mcg/actuation 180 mcg inhalation Q6H PRN 08/06/22 01/17/23 Rx breath activated powder shortness of breath or wheezing #1 inhaler,sensor ea atorvastatin 40 mg tablet 40 mg PO HS Cholesterol #90 tabs 08/25/22 01/17/23 Rx losartan 25 mg tablet 25 mg PO DAILY #90 tabs 10/04/22 01/17/23 Rx budesonide-formoterol HFA 160 2 puff inhalation BID 90 days 11/18/22 01/17/23 Rx mcg-4.5 mcg/actuation aerosol #12.5 gram
--- NOTE | 2023-01-17 15:59 | XR_ITS ---
PROCEDURE INFORMATION: Exam: XR Chest Exam date and time: 01/17/2023 4:25 PM Age: 82 years old Clinical indication: Pain; Chest pressure; Additional info: Chest pain TECHNIQUE: Imaging protocol: Radiologic exam of the chest. Views: 1 view. COMPARISON: CR XR CHEST 2V 09/08/2022 2:47 PM FINDINGS: Lungs: Unremarkable. No consolidation. Pleural spaces: Unremarkable. No pleural effusion. No pneumothorax. Heart/Mediastinum: Unremarkable. No cardiomegaly. Bones/joints: Unremarkable. Other findings: Stable position of the multi lead pacer device. IMPRESSION: Stable chest x-ray with no acute disease.
--- NOTE | 2023-01-17 16:05 | PC.NURSE ---
Blood rate increased to 175 ml/ hr
--- NOTE | 2023-01-17 16:14 | ECG_ITS ---
APPROVED REPORT Exam: Resting ECG HR:79 bpm ECG Measurements Heart Rate 79 AXES OR 124 P 64 QRSd 159 QRS 98 QT 445 T 29 QTc 480 Conclusion ELECTRONIC VENTRICULAR PACEMAKER ABNORMAL RHYTHM ECG UNCONFIRMED REPORT Electronically signed by : Heath Camarena MD 01/18/2023 10:18:27
--- NOTE | 2023-01-17 17:16 | PC.NURSE ---
Blood verified with Mahsa Tidwell RN at 1530. Wrist band, product unit number, source registration number, product and product blood type all scanned. Patient name, and unit number verified. No blood clots, discoloration or signs of leakage noted. After starting blood TAR not showing blood had been verified. Blood bank called and could not offer a solution. Vital signs documented on TAR.
--- NOTE | 2023-01-17 17:50 | PC.NURSE ---
Blood complete at 1750, patient VSS, repeat h/h ordered
[2023-01-17 19:03] LABS: Troponin I < 0.01 ng/ml (0.00-0.034)
[2023-01-17 20:42] LABS: Hematocrit 30.1 % (37.0-47.0)
[2023-01-17 21:04] LABS: Hemoglobin 9.5 g/dL (12.2-16.2)
[2023-01-17 21:06] LABS: Troponin I < 0.01 ng/ml (0.00-0.034)
[2023-01-18] VITALS (20 sets, daily range): BP systolic 100–143; BP diastolic 41–79; PULSE 58–81; RESP 16–20; TEMP 36.4–36.8; O2SAT 89–98; BMI 31.6
--- NOTE | 2023-01-18 | IR_ITS ---
APPROVED REPORT Patient Location: Inpatient PROCEDURES Left heart catheterization Left ventriculogram Selective coronary angiogram INDICATION Known coronary artery disease, Unstable angina Informed consent was obtained prior to the procedure. COMPLICATIONS None Estimated Blood Loss: Less than 10 mls TECHNIQUE One percent lidocaine used to anesthetize the right anterior aspect of the wrist. The right radial artery was accessed via the Seldinger technique. A 6 Pashto sheath was placed in the right radial artery. 2.5 mg of Verapamil, 800 mcg of nitroglycerin, 1mg Lidocaine and 5000 U Heparin were given through the arterial sheath. The papa catheter was also used to perform left heart catheterization, left ventriculogram and selective coronary angiogram. At the end of the procedure the sheath was removed good hemostasis was achieved using Traclet band, patient was transferred to the postop holding area in stable condition. ANGIOGRAPHIC RESULTS The left main artery Normal The left anterior descending artery Has a stent in the proximal segment which is widely patent with mild mostly eccentric 30% in-stent restenosis within the midportion of the stent and mid LAD The circumflex artery Nondominant with mild 10% luminal irregularities The right coronary artery Dominant with a proximal 30% stenosis and an additional proximal to mid vessel 30 to 40% stenosis The BOYCE ventriculogram reveals Not performed The left ventricular end-diastolic pressure Not measured IMPRESSION Coronary disease as described above Widely patent stents with no angiographic evidence explaining angina PLAN 1. Continue medical management risk 2. Risk factor modification 3. Echocardiogram Electronically signed by : Sebastián Sawant MD 01/18/2023 13:07:33
--- NOTE | 2023-01-18 00:01 | PC.NURSE ---
Drinks removed from BS table at this time. Pt reminded of NPO status. Pt verbalizes understanding. Warm blanket and mouth swabs given to pt.
--- NOTE | 2023-01-18 04:50 | PC.NURSE ---
Pt has not voiced any c/o to staff t/o shift. Ambulating to BR with standby assist. Pt tolerating RA with sats in upper 90s. Paced on tele monitor. Pt has been washed and clipped in preparation for heart cath in am. Consent for cath was signed. Pt verbalizes understanding of procedure. Call light within reach.
[2023-01-18 06:51] LABS: Basophils % 0.3 % (0.1-2.0); Eosinophils # 0.1 K/mm3 (0.0-0.4); Eosinophils % 1.1 % (0.1-12.0); Hematocrit 30.6 % (37.0-47.0); Hemoglobin 9.6 g/dL (12.2-16.2); Lymphocytes # 1.4 K/mm3 (0.7-4.5); Lymphocytes % 16.5 % (10-50); Mean Corpuscular HGB Conc 31.3 g/dL (31.8-35.4); Mean Corpuscular Hemoglobin 23.2 pg (27.0-31.2); Mean Corpuscular Volume 74.2 fl (81-99); Monocytes # 0.4 K/mm3 (0.1-1.0); Monocytes % 5.1 % (1.7-9.3); Neutrophils # 6.3 K/mm3 (1.8-7.8); Platelet Count 318 K/mm3 (142-424); Red Blood Count 4.13 M/mm3 (4.20-5.40); Red Cell Distribution Width 17.3 % (11.5-17.5); White Blood Count 8.2 K/mm3 (4.8-10.8)
[2023-01-18 06:56] LABS: Chloride 104 mmol/L (98-107); Sodium 139 mmol/L (136-145)
[2023-01-18 06:57] LABS: Potassium 3.8 mmoL/L (3.5-5.1)
[2023-01-18 06:58] LABS: Iron 29 ug/dL (37-170)
[2023-01-18 06:59] LABS: Alanine Aminotransferase 20 U/L (12-78); Albumin Level 3.7 g/dl (3.5-5.0); Albumin/Globulin Ratio 1.1 (1.1-1.8); Alkaline Phosphatase 167 U/L (38-126); Anion Gap 8.8 mEq/L (5-15); Aspartate Amino Transferase 30 U/L (14-36); Bilirubin,Total 0.5 mg/dl (0.2-1.3); Blood Urea Nitrogen 13 mg/dl (7-17); Calcium 8.2 mg/dl (8.4-10.2); Carbon Dioxide 30 mmol/L (22.0-30.0); Creatinine Clearance Estimated 51 mL/min (50-200); Estimated Glomerular Filt Rate 69 ml/min (>60); GFR (African American) 83 ML/MIN (>60); Globulin 3.3 g/dL (1.3-3.2); Glucose 90 mg/dl (74-100); Magnesium 2.2 mg/dl (1.6-2.3)
[2023-01-18 07:08] LABS: Total Iron Binding Capacity 390 ug/dL (265-497)
--- NOTE | 2023-01-18 07:30 | HMH.PHAINT1 ---
Pharmacy Intervention Comments: Med reconciliation completed using external fill history and patient rx bottles. Ms Hinojosa states that what she takes is what she brought in
[2023-01-18 07:35] LABS: Ferritin 8.07 ng/ml (11.1-264)
--- NOTE | 2023-01-18 09:41 | EXP.DC.SUM ---
General Admission date:: 01/17/23 Discharge date: 01/18/23 HPI HPI HPI: Ms. Hinojosa is a pleasant 82-year-old female with past medical history of CAD, heart failure, hypertension, chronic anemia, persistent asthma, restrictive lung disease, and BiV AICD. She presented to the cardiology clinic today as an outpatient with increased chest discomfort and shortness of breath for the past week. States that she has been having some increased chest pressure that will radiate to her neck while exerting herself. Resolves with rest and nitroglycerin. Denies any syncope, loss of consciousness, pain at rest. States she has pain onset like this when her hemoglobin is low. Denies any melenic stools, blood per rectum, hematemesis. On eval in cardiology clinic, she had an EKG showing V paced rhythm. Initial labs obtained showing hemoglobin of 8. Medicine was consulted for admission for unstable angina, need for transfusion, need for further workup of her chest pain. On arrival to the floor, patient states she is feeling okay at this time. No active chest pain at the moment. Cardiology consulted to assist with care. Stable on room air, afebrile Hospital Course Hospital Course Hospital Course: Misty 82-year-old female with extensive cardiac history, presented to cardiology clinic with chest pain on exertion. Found to be anemic on labs. Discussed case with cardiology, request admission for transfusion, stress test, further workup. Medicine agreed to admit for further management. Stable during admission. Meeting criteria for discharge home after intervention. Problems addressed as follows: Unstable angina Heart failure with improved ejection fraction Status post BiV AICD -EKG with no ischemic changes, showing paced rhythm. Personally reviewed. Troponin obtained, less than 0.01. Repeat 3-hour ordered. Remained stable during admission on telemetry. She has a history of drug-eluting stents placed on 01/03/2018 and 03/05/2017. Medical management from heart cath recommended 08/2019. Cardiology was consulted. Taken for left heart cath on 01/18/2023. Recommended continued medical management. No stents placed at this time. Continue home Lipitor 40 mg nightly, Plavix 75 g daily the, losartan 25 mg daily, metoprolol succinate 50 mg daily. Repeat echo obtained, formal read pending. No obvious signs of volume overload during admission. Given stable findings on heart cath. Patient stable to discharge home. Follow-up with cardiology as an outpatient in the coming weeks. Acute on chronic anemia -Hemoglobin 8 on morning labs. Transfusion threshold less than 9. Transfused 1 unit. Responded well with hemoglobin 9.6 on morning labs. Iron studies obtained showing severe deficiency. Treated with 1 dose of Venofer prior to discharge home. Would benefit from consideration of additional doses of Venofer to complete 5 dose course. Will defer to cardiology in the outpatient setting to coordinate this treatment. Continue home pramipexole 1.5mg nightly continue home inhaler 2 puffs BID continue home lexapro 20 mg daily Spent 40 minutes in discharge counseling, documentation, chart review, discussion with cardiology, and direct care with patient. Exam Data for Last 24 hours Vital signs and Labs for Last 24 Hours: Temp Pulse Resp BP Pulse Ox O2 Del Method 98.1 F 80 19 143/57 H 95 Room Air 01/18/23 07:32 01/18/23 07:32 01/18/23 07:32 01/18/23 07:32 01/18/23 07:32 01/18/23 07:32 Laboratory Results - last 24 hr 01/17/23 11:32: WBC 7.8, RBC 3.60 L, Hgb 8.0 L, Hct 25.9 L, MCV 71.9 L, MCH 22.1 L, MCHC 30.7 L, RDW 17.0, Plt Count 369, MPV 8.1, Neut % (Auto) 78.8, Lymph % (Auto) 14.5, [place] % (Auto) 5.5, Eos % (Auto) 1.1, Baso % (Auto) 0.2, Neut # (Auto) 6.1, Lymph # (Auto) 1.1, [place] # (Auto) 0.4, Eos # (Auto) 0.1, Baso # (Auto) 0.0, Sodium 135 L, Potassium 4.1, Chloride 104, Carbon Dioxide 27, Anion Gap 8.1, BUN 12, Creatinine 0.70, Estimated GFR 80,
--- NOTE | 2023-01-18 11:06 | EXP.CARD.PN ---
Subjective Subjective Date: 01/18/23 Time: 08:30 Principal diagnosis: Anemia, unstable angina Interval history: Patient was transfused throughout the evening and hemoglobin this morning is up to 9.6. Patient reports she had some pressure between her shoulder blades throughout last night. Denies any chest pain this morning. Agreeable to proceed with left heart catheterization today. Other labs reviewed and stable. Exam Data for Last 24 hours Vital signs and Labs for Last 24 Hours: Temp Pulse Resp BP Pulse Ox O2 Del Method 98.1 F 60 19 143/57 H 95 Room Air 01/18/23 07:32 01/18/23 08:00 01/18/23 07:32 01/18/23 07:32 01/18/23 07:32 01/18/23 09:00 Laboratory Results - last 24 hr 01/17/23 11:32: WBC 7.8, RBC 3.60 L, Hgb 8.0 L, Hct 25.9 L, MCV 71.9 L, MCH 22.1 L, MCHC 30.7 L, RDW 17.0, Plt Count 369, MPV 8.1, Neut % (Auto) 78.8, Lymph % (Auto) 14.5, [place] % (Auto) 5.5, Eos % (Auto) 1.1, Baso % (Auto) 0.2, Neut # (Auto) 6.1, Lymph # (Auto) 1.1, [place] # (Auto) 0.4, Eos # (Auto) 0.1, Baso # (Auto) 0.0, Sodium 135 L, Potassium 4.1, Chloride 104, Carbon Dioxide 27, Anion Gap 8.1, BUN 12, Creatinine 0.70, Estimated GFR 80, Est GFR ( Amer) 97, Glucose 89, Calcium 8.0 L, Magnesium 2.1, Total Bilirubin 0.2, Direct Bilirubin 0.1, Conjugated Bilirubin 0.0, Indirect Bilirubin 0.1, Unconjugated Bilirubin 0.1, AST 26, ALT 17, Alkaline Phosphatase 151 H, Total Protein 6.4, Albumin 3.4 L, Triglycerides 191 H, Cholesterol 80 L, LDL Cholesterol Direct 34.60 L, VLDL Cholesterol 38, HDL Cholesterol 32 L, Cholesterol/HDL Ratio 2.5, TSH 0.14 L, Free T4 0.94 01/17/23 13:55: Troponin I < 0.01, Blood Type A Positive, Antibody Screen Negative, Crossmatch (AHG) See Detail 01/17/23 17:11: Troponin I < 0.01 01/17/23 20:33: Hgb 9.5 L D, Hct 30.1 L, Troponin I < 0.01 01/18/23 06:34: WBC 8.2, RBC 4.13 L, Hgb 9.6 L, Hct 30.6 L, MCV 74.2 L, MCH 23.2 L, MCHC 31.3 L, RDW 17.3, Plt Count 318, MPV 8.0, Neut % (Auto) 77.0, Lymph % (Auto) 16.5, [place] % (Auto) 5.1, Eos % (Auto) 1.1, Baso % (Auto) 0.3, Neut # (Auto) 6.3, Lymph # (Auto) 1.4, [place] # (Auto) 0.4, Eos # (Auto) 0.1, Baso # (Auto) 0.0, Sodium 139, Potassium 3.8, Chloride 104, Carbon Dioxide 30, Anion Gap 8.8, BUN 13, Creatinine 0.80, Estimated Creat Clear 51, Estimated GFR 69, Est GFR ( Amer) 83, Glucose 90, Calcium 8.2 L, Magnesium 2.2, Iron 29 L, TIBC 390, Iron Saturation 7.61998 L, Ferritin 8.07 L D, Total Bilirubin 0.5, AST 30, ALT 20, Alkaline Phosphatase 167 H, Total Protein 7.0, Albumin 3.7, Globulin 3.3 H, Albumin/Globulin Ratio 1.1 I & O for Last 24 hours: Intake & Output 01/15/23 01/16/23 01/17/23 01/18/23 23:59 23:59 23:59 23:59 Intake Total 240 / 240 0 / 0 Output Total 0 / 0 0 / 0 Balance 240 / 240 0 / 0 Weight 165 lb 4 oz 161 lb Constitutional Constitutional: no acute distress *Routine Respiratory Exam Respiratory: Present CTA bilaterally and symmetric chest movement *Routine Cardiovascular Exam Cardiovascular: Present RRR, Normal S1 and Normal S2 *Routine Abdominal Exam Abdominal: Present soft and normoactive bowel sounds; Absent tenderness *Routine Extremities Exam Extremities: Present full ROM and normal capillary refill; Absent edema *Routine Skin Exam Skin: Present intact, dry and warm Detailed Neck Exam: Thyroids Thyroid: Absent bruit Progress Note: A&P Assessment and plan (1) Unstable angina: Status: Acute (2) Anemia: Status: Chronic (3) NYHA class 2 heart failure with reduced ejection fraction: Status: Chronic (4) Moderate persistent asthma: Status: Chronic (5) Restrictive lung disease: Status: Chronic Assessment and Plan Assessment and Plan for All Diagnoses:: CAD Unstable angina -History of drug-eluting stent 12/2017 and 02/2017 -Medical management heart cath 08/2019 -Serial troponins negative -EKG negative for acute ischemic changes -Given patient's past medical history of coronary artery disease and escalation in s
--- NOTE | 2023-01-18 13:14 | PC.NURSE ---
Report received from cardiac cath tech. (R) radial accessed. 0 stents placed. Tracelet with 15 ml of air. First air to come out @ 1500.
--- NOTE | 2023-01-18 17:46 | PC.NURSE ---
Tracelet off. 2x2 DSG and tegaderm placed. Pt is currently eating dinner. IV DC. Pt waiting for son to come take her home.
--- NOTE | 2023-01-20 13:25 | CARE MANAGER ---
Called and spoke with patient regarding recent discharge. She stated that she is doing well, no concerns voiced at time of call. Patient aware of scheduled f/u appts.
== END 2023-01-18 18:35 | disposition home or self-care (01) ==
LOC: 2ND 13:18
PROVIDERS: Internal Medicine; Physician Assistant; Admitting Provider Internal Medicine Adolescent Medicine; PCP Family Medicine; Visit Provider Internal Medicine Adolescent Medicine
DX: T82.855A Stenosis of coronary artery stent, initial encounter (principal); I42.9 Cardiomyopathy, unspecified; I11.0 Hypertensive heart disease with heart failure; I65.29 Occlusion and stenosis of unspecified carotid artery; R06.02 Shortness of breath; Z95.810 Presence of automatic (implantable) cardiac defibrillator; R06.00 Dyspnea, unspecified; R06.01 Orthopnea; I50.20 Unspecified systolic (congestive) heart failure; J45.40 Moderate persistent asthma, uncomplicated; I50.32 Chronic diastolic (congestive) heart failure; I25.110 Atherosclerotic heart disease of native coronary artery with unstable angina pectoris; I25.2 Old myocardial infarction; F17.210 Nicotine dependence, cigarettes, uncomplicated; Z79.899 Other long term (current) drug therapy; Z95.5 Presence of coronary angioplasty implant and graft; E78.5 Hyperlipidemia, unspecified; Y83.1 Surgical operation with implant of artificial internal device as the cause of abnormal reaction of the patient, or of later complication, without mention of misadventure at the time of the procedure; D50.9 Iron deficiency anemia, unspecified
CPT/HCPCS: 36415; 36430; 71045; 80048; 80053; 80061; 80076; 82728; 83540; 83550; 83735; 84439; 84443; 84484; 85014; 85018; 85025; 86850; 93005; 93454; 94640; 99152; C1725; C1769; G0378; J1644; J1756; P9016; Q9967

== ENCOUNTER → 2023-02-02 15:12 | Outpatient (CLI) | payer MEDICARE, BC, SELFPAY ==
--- NOTE | 2023-02-02 15:14 | CA_ITS ---
APPROVED REPORT EXAM: Comprehensive 2D, Doppler, and color-flow Echocardiogram Towerman: Holly Sebastian, RCS, RVS Ht: 4 ft 11 in Wt: 165lbs BSA: 1.70 BP: 138/56 mmHg Indications: ekg [id number], SOB, LBBB, Chest wall pain, Anemia, Recent MD 2D Dimensions IVSd 0.86 cm F: 0.6-1.0 LVEF (Visual) 61.20 % PWd 1.23 cm F: 0.6 - 1.0 LA Volume 66.60 mL LVDd 5.57 cm F: 3.9 - 5.3 LA Volume Index 39.18 mL/m2 (M/F) 16-34 LVDs 3.72 cm F: 2.2 - 3.5 Left Atrium 4.48 cm F: 2.7 - 3.8 M-Mode Dimensions RVDd 2.13 cm (0.9-2.6) LA Diam 4.54 cm (1.9-4.0) LVDd 5.32 cm (3.5-5.7) LVDs 4.10 cm (3.5-5.7) IVSd 1.18 cm (0.6-1.1) PWd 1.22 cm (0.6-1.1) EF (Teich) 45.60% EPSs 0.72 cm FS 22.90% EDV (Teich) 136.50 mL TAPSE 2.62 (<1.7) ESV (Teich) 74.20 mL LV Diastology E Decel Time 253 (160-240 msec) E/A Ratio 0.84 MED A' 7.80 cm/s LAT A' 9.00 cm/s Aortic Valve SARITA Index 1.31 cm2/m2 AoV Peak Chuck. 173.0 (50-130 cm/s) AI PHT 396.00 ms AO Peak GR. 11.90 mmHg AO Mean GR. 5.80 (<5 mmHg) AO VTI 36.2 (18-25 cm) SARITA (VTI) 2.28 (2.5-4.5 cm2) Mitral Valve MV A Velocity 138.0 (40-130 cm/s) E/A Ratio 0.84 Pulmonary Valve [place] End VMAX 131.0 cm/s Tricuspid Valve TR P. Velocity 259.00 cm/s RAP Estimate 10.00 mmHg RVSP 36.80 mmHg Left Ventricle The left ventricle is normal size. The left ventricular systolic function is normal. The left ventricular ejection fraction is within the normal range. There is normal left ventricular wall thickness. There is normal LV segmental wall motion. Grade 2 diastolic dysfunction is present. LVEF is 60%. Right Ventricle The right ventricle is normal size. The right ventricular systolic function is normal. Atria Left atrium is moderately dilated. Right atrium is moderately dilated. There is no Doppler evidence of interatrial shunt. Aortic Valve The aortic valve is mildly thickened. There is no aortic valvular stenosis. Moderate aortic regurgitation. Mitral Valve Mild mitral annular calcification. The mitral valve leaflets are mildly thickened. No evidence of mitral valve stenosis. Trace mitral regurgitation. Tricuspid Valve The tricuspid valve leaflets are thin and pliable. Trace tricuspid regurgitation. There is insufficient TR jet to estimate RVSP. Pulmonic Valve The pulmonary valve is normal in structure. Trace pulmonic regurgitation. Great Vessels The aortic root is normal in size. The ascending aorta is normal in size. The IVC is not well-visualized. Pericardium There is no pericardial effusion. Other Information Study Quality: Fair Conclusion Normal biventricular systolic function. Grade 2 diastolic dysfunction. Moderate biatrial dilation. Moderate AI. Compared to prior study from 07/2022, there are no significant changes. Electronically signed by : Arielle Villeda MD 02/07/2023 21:09:03
== END ==
PROVIDERS: PCP Family Medicine; Visit Provider Nurse Practitioner Family
DX: I11.0 Hypertensive heart disease with heart failure (principal); I25.10 Atherosclerotic heart disease of native coronary artery without angina pectoris; I42.9 Cardiomyopathy, unspecified; I50.32 Chronic diastolic (congestive) heart failure; I65.29 Occlusion and stenosis of unspecified carotid artery; R06.00 Dyspnea, unspecified; D64.9 Anemia, unspecified; Z95.810 Presence of automatic (implantable) cardiac defibrillator; Z72.0 Tobacco use
CPT/HCPCS: 93306

== ENCOUNTER 2023-04-04 14:08 | Outpatient (CLI) | payer MEDICARE, BC, SELFPAY ==
[2023-04-04 14:46] LABS: Basophils % 0.2 % (0.1-2.0); Eosinophils # 0.1 K/mm3 (0.0-0.4); Hematocrit 28.2 % (37.0-47.0); Hemoglobin 8.9 g/dL (12.2-16.2); Lymphocytes # 1.5 K/mm3 (0.7-4.5); Lymphocytes % 22.1 % (10-50); Mean Corpuscular HGB Conc 31.7 g/dL (31.8-35.4); Mean Corpuscular Hemoglobin 25.2 pg (27.0-31.2); Mean Corpuscular Volume 79.6 fl (81-99); Mean Platelet Volume 8.4 fl (7.4-10.4); Monocytes # 0.4 K/mm3 (0.1-1.0); Monocytes % 5.4 % (1.7-9.3); Neutrophils # 4.9 K/mm3 (1.8-7.8); Neutrophils % 71.4 % (37.0-80.0); Platelet Count 320 K/mm3 (142-424); Red Blood Count 3.54 M/mm3 (4.20-5.40); White Blood Count 6.9 K/mm3 (4.8-10.8)
[2023-04-04 15:12] LABS: Anion Gap 8.1 mEq/L (5-15); Blood Urea Nitrogen 14 mg/dl (7-17); Calcium 8.6 mg/dl (8.4-10.2); Carbon Dioxide 29 mmol/L (22.0-30.0); Chloride 104 mmol/L (98-107); Estimated Glomerular Filt Rate 69 ml/min (>60); GFR (African American) 83 ML/MIN (>60); Glucose 94 mg/dl (74-100); Potassium 4.1 mmoL/L (3.5-5.1); Sodium 137 mmol/L (136-145)
== END 2023-04-04 23:59 ==
PROVIDERS: PCP Internal Medicine; Visit Provider Physician Assistant
DX: I11.0 Hypertensive heart disease with heart failure (principal); I25.10 Atherosclerotic heart disease of native coronary artery without angina pectoris; I50.32 Chronic diastolic (congestive) heart failure; Z95.810 Presence of automatic (implantable) cardiac defibrillator; D64.9 Anemia, unspecified
CPT/HCPCS: 36415; 80048; 85025

== ENCOUNTER 2023-04-14 13:26 | Outpatient (CLI) | payer MEDICARE, BC, SELFPAY ==
[2023-04-14 14:06] LABS: Basophils # 0.1 K/mm3 (0-0.2); Basophils % 0.7 % (0.1-2.0); Eosinophils % 0.5 % (0.1-12.0); Hematocrit 29.3 % (37.0-47.0); Hemoglobin 8.8 g/dL (12.2-16.2); Lymphocytes # 1.5 K/mm3 (0.7-4.5); Lymphocytes % 22.3 % (10-50); Mean Corpuscular HGB Conc 30.2 g/dL (31.8-35.4); Mean Corpuscular Hemoglobin 24.5 pg (27.0-31.2); Mean Corpuscular Volume 81.2 fl (81-99); Mean Platelet Volume 8.8 fl (7.4-10.4); Monocytes # 0.4 K/mm3 (0.1-1.0); Monocytes % 5.7 % (1.7-9.3); Neutrophils # 4.7 K/mm3 (1.8-7.8); Neutrophils % 70.8 % (37.0-80.0); Platelet Count 291 K/mm3 (142-424); Red Blood Count 3.61 M/mm3 (4.20-5.40); Red Cell Distribution Width 18.3 % (11.5-17.5); White Blood Count 6.7 K/mm3 (4.8-10.8)
[2023-04-14 14:54] LABS: Iron 41 ug/dL (37-170)
[2023-04-14 15:03] LABS: Total Iron Binding Capacity 482 ug/dL (265-497)
[2023-04-14 15:30] LABS: Ferritin 6.83 ng/ml (11.1-264)
== END 2023-04-14 23:59 ==
PROVIDERS: PCP Family Medicine; Visit Provider Internal Medicine Medical Oncology
DX: D50.9 Iron deficiency anemia, unspecified (principal); Z79.899 Other long term (current) drug therapy
CPT/HCPCS: 36415; 82728; 83540; 83550; 85025

== ENCOUNTER 2023-04-18 05:25 | Inpatient (IN) | payer MEDICARE, BC, SELFPAY ==
[2023-04-18] VITALS (17 sets, daily range): BP systolic 105–141; BP diastolic 39–86; PULSE 96–130; RESP 18–30; TEMP 36.7–38.9; O2SAT 88–98; BMI 35.7; BMI 34.9
--- NOTE | 2023-04-18 05:26 | ECG_ITS ---
APPROVED REPORT Exam: Resting ECG HR:124 bpm ECG Measurements Heart Rate [address] 140 P 57 QRSd 149 QRS 1 QT 361 T 123 QTc 435 Conclusion SINUS TACHYCARDIA LEFT BUNDLE BRANCH BLOCK [120+ ms QRS DURATION, 80+ ms Q/S IN V1/V2, 85+ ms R IN I/aVL/V5/V6] ABNORMAL ECG UNCONFIRMED REPORT Electronically signed by : SANTA LEE, 04/20/2023 06:03:32
--- NOTE | 2023-04-18 05:28 | XR_ITS ---
PROCEDURE INFORMATION: Exam: XR Chest Exam date and time: 04/18/2023 5:31 AM Age: 82 years old Clinical indication: Fever and shortness of breath; Prior surgery; Surgery date: 6+ months; Surgery type: Pacemaker; Additional info: SOA, fever TECHNIQUE: Imaging protocol: Radiologic exam of the chest. Views: 1 view. COMPARISON: CR XR CHEST PORTABLE 01/17/2023 4:25 PM FINDINGS: Tubes, catheters and devices: A left chest wall pacemaker is again seen. Lungs: There appears to be mild developing right basilar infiltrate. Pleural spaces: Unremarkable. No pleural effusion. No pneumothorax. Heart/Mediastinum: Unremarkable. No cardiomegaly. Bones/joints: Unremarkable. IMPRESSION: Mild developing right basilar infiltrate.
--- NOTE | 2023-04-18 05:31 | HMH.EDGENADL ---
Discharge Plan Disposition Patient Disposition: Admitted Chief Complaint: Chest Pain Prescriptions Prescriptions: No Action atorvastatin 40 mg tablet 40 mg PO HS Qty: 90 3RF clopidogrel 75 mg tablet 75 mg PO DAILY Qty: 90 3RF Hold Instructions: Resume on 11/06/22. Rx Instructions: TAKE 1 TABLET BY MOUTH DAILY furosemide [Lasix] 40 mg tablet 80 mg PO BID Qty: 180 3RF losartan 25 mg tablet 25 mg PO DAILY Qty: 90 3RF metoprolol succinate 50 mg tablet extended release 24 hr 50 mg PO DAILY Qty: 90 3RF pramipexole 1.5 mg tablet 1.5 mg PO HS Patient Comments: TAKE 1 TABLET BY MOUTH AT NIGHT Rx Instructions: GIVE WITH PRAMIPEXOLE 2MG omeprazole 20 mg capsule,delayed release(DR/EC) 20 mg PO DAILY potassium citrate 99 mg capsule 99 mg PO DAILY nitroglycerin 0.4 mg tablet, sublingual 0.4 mg SL Q5M PRN (Reason: chest pain) Qty: 25 0RF Rx Instructions: do not exceed 3 doses per episode biotin 10,000 MCG capsule 10,000 mcg PO DAILY albuterol sulfate 90 mcg/actuation aero powdr breath act w/sensor 180 mcg inhalation Q6H PRN (Reason: shortness of breath or wheezing) Qty: 1 0RF escitalopram oxalate 20 MG tablet 20 mg PO DAILY Referrals Follow up/Referrals: Provider,Referral, MD [Primary Care Provider] - See instructions Clinical Impressions Clinical Impression: Influenza A with pneumonia, Acute exacerbation of chronic obstructive pulmonary disease Sepsis Qualifiers: Sepsis type: sepsis due to unspecified organism Sepsis acute organ dysfunction status: with acute organ dysfunction Severe sepsis acute organ dysfunction type: acute respiratory failure Acute respiratory failure type: with hypoxia Severe sepsis shock status: without septic shock Qualified Code(s): A41.9 - Sepsis, unspecified organism; R65.20 - Severe sepsis without septic shock; J96.01 - Acute respiratory failure with hypoxia Discharge ED Provider: Hernán Carrington Adult HPI General Chief complaint: Chest Pain Stated complaint: CP Time Seen by Provider: 04/18/23 05:28 History of Present Illness HPI narrative: 82-year-old female with history of coronary artery disease, hypertension, hyperlipidemia, COPD CHF presents with multiple complaints. Reports chest pain started tonight. Centrally located, pressure type. Also reports shortness of breath and feels feverish, symptoms been worsening over the last couple of days. Her family members have been sick recently and she is concerned that she has gotten the same thing. Patient received nitro at home and received full dose aspirin with EMS. Related Data Home Medications Medication Instructions Recorded Confirmed escitalopram oxalate 20 mg tablet 20 mg PO DAILY Depression 02/24/17 04/14/23 biotin 10,000 mcg capsule 10,000 mcg PO DAILY Supplement 05/21/18 04/14/23 pramipexole 1.5 mg tablet 1.5 mg PO HS pain 05/11/22 04/14/23 omeprazole 20 mg capsule,delayed 20 mg PO DAILY 01/17/23 04/14/23 release potassium citrate 99 mg capsule 99 mg PO DAILY 01/17/23 04/14/23 Previous Rx's Medication Instructions Recorded nitroglycerin 0.4 mg sublingual 0.4 mg sublingual Q5M PRN chest 09/17/21 tablet pain #25 tabs albuterol sulfate 90 mcg/actuation 180 mcg inhalation Q6H PRN 08/06/22 breath activated powder shortness of breath or wheezing #1 inhaler,sensor ea atorvastatin 40 mg tablet 40 mg PO HS Cholesterol #90 tabs 01/26/23 clopidogrel 75 mg tablet 75 mg PO DAILY Anti Platelet #90 01/26/23 tabs furosemide 40 mg tablet (Lasix) 80 mg PO BID Fluid #180 tabs 01/26/23 losartan 25 mg tablet 25 mg PO DAILY #90 tabs 01/26/23 metoprolol succinate 50 mg 50 mg PO DAILY High blood pressure 01/26/23 tablet,extended release 24 hr #90 tabs Allergies Allergy/AdvReac Type Severity Reaction Status Date / Time No Known Allergies Allergy Verified 04/14/23 13:01 [facility] Disclaimer: The information contained in this section may have been updated after the patient was seen, as this information can be updated by other users. Medical History Anemia Atrial flutter CAD (coronary artery disease) Carotid artery stenosis Chest wall pain CHF (congestive heart failure) Edema Exertional dyspnea Hernia HLD (hyperlipidemia) HTN (hypertension) Left bundle branch block (LBBB) on electrocardiogram Moderate persistent asthma Preoperative clearance Recent myocardial infarction (~01/27/17) Restrictive lung disease SOB (shortness of breath) Surgical History AICD (automatic cardioverter/defibrillator) present Family History Other Cervical cancer Family history of hyperlipidemia Family history of hypertension Family history of multiple sclerosis Family history of myocardial infarction Lung cancer No significant family history Skin cancer Social History Smoking Status: Former smoker second hand exposure: No alcohol intake: never counseling provided: none substance use type: denies use current occupational status: retired Travel in the last 8 weeks: None household members: children housing: house current occupation: real estate current occupational exposures/hazards: Yes caffeine: Yes ROS Obtained: Yes All systems reviewed & no additional complaints except as documented Physical Exam General General appearance: alert Head Head exam: atraumatic and normocephalic Eye Eye exam: Present normal appearance, PERRL and EOMI ENT ENT exam: Present normal oropharynx and normal external ear exam Neck Neck exam: Present normal inspection and full ROM Chest Chest inspection: Present normal inspection and symmetric chest wall rise; Absent tenderness Respiratory Respiratory exam: Present other (Mild tachypnea, increased respiratory effort, decreased breath sounds bilaterally) Cardiovascular Cardiovascular exam: Present normal rhythm and tachycardia Abdominal Exam Abdominal exam: Present soft; Absent distention, tenderness or guarding Extremities Exam Extremities exam: Present normal inspection; Absent edema or joint swelling Back Exam Back exam: Present normal inspection; Absent tenderness Neurological Exam Neurological exam: Present alert and oriented X3; Absent motor sensory deficit Psychiatric Psychiatric exam: Present normal affect and normal mood Skin Skin exam: Present warm, dry and normal color Lymphatic Lymphatic Findings: no adenopathy Medical Decision Making Medical Records Medical records reviewed: Yes I reviewed the patient's medical records. Chuy Inquiry Pt receiving controlled substance: No Chuy was queried for this patient: No Vital Signs: 04/18/23 05:25 04/18/23 05:30 Temperature 102.1 F H Temperature Source Oral Pulse Rate 124 H Pulse Rate [Left] 126 H Respiratory Rate 25 H 30 H Blood Pressure 122/57 L Blood Pressure [Right Arm] 122/57 L Blood Pressure Mean 82 Blood Pressure Mean [Right Arm] 78 02 Sat by Pulse Oximetry 89 L 93 L Oxygen Delivery Method Nasal Cannula Oxygen Flow Rate (LPM) 4 6 Lab Data Lab results reviewed: Yes I reviewed the patient's lab results. Lab Results 04/18/23 05:28: VBG pH 7.32, VBG pCO2 52.0 H, VBG pO2 31.6, VBG HCO3 26.2, VBG Total CO2 27.8 H, VBG O2 Saturation 53.6, VBG Base Excess 0.1, VBG Lactic Acid 2.8 H 04/18/23 05:32: WBC 13.5 H, RBC 3.43 L, Hgb 8.6 L, Hct 27.7 L, MCV 80.8 L, MCH 25.0 L, MCHC 30.9 L, RDW 18.6 H, Plt Count 271, MPV 8.3, Neut % (Auto) 93.6 H, Lymph % (Auto) 3.4 L, [place] % (Auto) 2.8, Eos % (Auto) 0.1, Baso % (Auto) 0.1, Neut # (Auto) 12.6 H, Lymph # (Auto) 0.5 L, [place] # (Auto) 0.4, Eos # (Auto) 0.0, Baso # (Auto) 0.0, Sodium 137, Potassium 3.2 L, Chloride 101, Carbon Dioxide 29, Anion Gap 10.2, BUN 15, Creatinine 0.90, Estimated Creat Clear 56, Estimated GFR 60, Est GFR ( Amer) 73, Glucose 138 H, Calcium 8.5, Total Bilirubin 0.4, AST 47 H, ALT 27, Alkaline Phosphatase 171 H, Total Protein 7.3, Albumin 3.8, Globulin 3.5 H, Albumin/Globulin Ratio 1.1, SARS-CoV-2 (PCR) Not detected, Influenza A Untype (PCR) Detected A, Influenza Type B (PCR) Not detected 04/18/23 05:32 04/18/23 05:32 Orders (Tests/Meds): ED MEDICATIONS Generic Name Dose Route Start Last Admin Trade Name Freq PRN Reason Stop Dose Admin Ceftriaxone Sodium 2 gm/ 100 mls @ 200 mls/hr 04/18/23 05:43 04/18/23 05:54 Sodium Chloride IV 04/18/23 06:12 200 mls/hr ONCE ONE Administration Sodium Chloride 1,000 mls @ 500 mls/hr 04/18/23 05:45 04/18/23 05:52 Sod Chlor 0.9% 1000ml Bag IV 04/18/23 07:44 500 mls/hr .Q2H SANTHOSH Administration Azithromycin 500 mg/ Sodium 250 mls @ 250 mls/hr 04/18/23 06:01 Chloride IV 04/18/23 06:02 ONCE ONE Magnesium Sulfate 2 gm in 50 mls @ 50 mls/hr 04/18/23 06:06 Magnesium Sulfate 2gm/50ml Premix IV 04/18/23 07:05 ONCE ONE Methylprednisolone Sodium Succinate 125 mg 04/18/23 06:04 Methylprednisolone Sod Succ 125mg Vial IV 04/18/23 06:05 ONCE ONE Oseltamivir Phosphate 75 mg 04/18/23 06:01 04/18/23 06:03 Oseltamivir 75mg Capsule PO 04/18/23 06:02 75 mg ONCE ONE Administration Discontinued Medications Generic Name Dose Route Start Last Admin Trade Name Freq PRN Reason Stop Dose Admin Acetaminophen 1,000 mg 04/18/23 05:42 04/18/23 05:53 Acetaminophen 500mg Tab PO 04/18/23 05:43 1,000 mg ONCE ONE Administration Albuterol/Ipratropium 6 ml 04/18/23 05:28 Ipratropium/Albuterol 3 Ml Neb IH 04/18/23 05:29 ONCE ONE Oseltamivir Phosphate 75 mg 04/18/23 09:00 Oseltamivir 75mg Capsule PO 04/22/23 21:01 BID SANTHOSH ORDERS Category Date Time Status CXR --portable [XR chest portable] Stat Exams 04/18/23 05:28 Taken CBC w/Auto Diff [Complete Blood Count Auto Diff] Stat Lab 04/18/23 05:32 Results CMP [Comprehensive Metabolic Panel] Stat Lab 04/18/23 05:32 Results Lactate Venous Stat Lab 04/18/23 05:28 Completed Lactic Acid Stat Lab 04/18/23 05:30 Received Rapid PCR Covid and Flu A/B Stat Lab 04/18/23 05:32 Completed Troponin I Q3H Lab 04/18/23 05:32 Results Troponin I Q3H Lab 04/18/23 08:30 Ordered Blood Culture Stat Micro 04/18/23 05:55 Received VBG [Venous Blood Gas] Stat RT 04/18/23 05:28 Completed ECG Data Tracing #1: I reviewed this ECG and interpreted as documented below: Sinus tachycardia, rate of 124, left bundle branch block noted, no Sgarbossa positive ST changes. ECG initial impression date: 04/18/23 ECG initial impression time: 05:28 HEART Score History (anamnesis): Slightly suspicious ECG: Non-specific disturbance Age: >65 years Risk factors: Atherosclerosis history Troponin: </= normal limit HEART Score: 5 Medical Decision Narrative: 2-year-old female with history of COPD, CAD, CHF, anemia presents with recent flu exposure, couple of days of flulike symptoms, worsening shortness of breath and chest pain. History was obtained interactive discussion with patient, family, EMS. On arrival, patient is febrile to 102, tachypneic, tachycardic to the 120s, requiring 6 L nasal cannula to maintain sats greater than 90%. Patient normally does not require oxygen. Full physical exam performed and significant for decreased breath sounds bilaterally, no lower extremity edema, increased work of breathing. Differential includes but is not limited to pneumonia, COPD, influenza, ACS, PE Patient was given 2 g ceftriaxone IV, 500 mg azithromycin IV, 125 Solu-Medrol IV, 2 DuoNebs, Tamiflu, 2 g mag IV, 1 g Tylenol p.o. for symptomatic management and correction of underlying abnormalities during ED stay. Workup initiated including CBC CMP VBG lactate troponin EKG chest x-ray. Patient flagged positive for sepsis, we will start with only 1 L IV fluid resuscitation given history of heart failure, no hypotension noted. On re-evaluation, patient remains hypoxic, tachycardic and tachypneic despite 2 DuoNebs, but patient is now moving better air and is wheezing. Patient initiated on BiPAP. Laboratory workup independently interpreted by me and significant for influenza A infection, leukocytosis with white count 13.5, mild hypokalemia. VBG shows elevated lactate at 2.8, mildly elevated pCO2 with low normal pH. Imaging independently interpreted by me and significant for bilateral hazy opacities which may be consistent with viral pneumonia. See radiology read for full review of final results. Given patient history, exam and workup, patient's presentation most likely represents sepsis and hypoxic and hypercarbic respiratory failure secondary to influenza pneumonia. Patient also has features consistent with COPD exacerbation, we will also treat empirically for possible secondary bacterial infection. Directed discussion had with the hospitalist on-call who admitted the patient for further evaluation and management Procedures Risk/Benefits of Procedure(s) Were Explained: Yes Critical Care Critical Care Time Critical Care Time: Yes Attestation: On 04/18/23, the high probability of a clinically significant, sudden or life threatening deterioration of the following system(s) required my full and direct attention, intervention and personal management. The time I documented below is in addition to time spent performing reported procedures but includes the following listed in this critical care notation. Total Time Total Critical Care Time: 42
[2023-04-18 05:37] LABS: Coronavirus 19, PCR Not Detected (NotDetected); Influenza B, PCR Not Detected (NotDetected)
[2023-04-18 05:40] LABS: Basophils % 0.1 % (0.1-2.0); Eosinophils % 0.1 % (0.1-12.0); Hematocrit 27.7 % (37.0-47.0); Hemoglobin 8.6 g/dL (12.2-16.2); Lymphocytes # 0.5 K/mm3 (0.7-4.5); Lymphocytes % 3.4 % (10-50); Mean Corpuscular HGB Conc 30.9 g/dL (31.8-35.4); Mean Corpuscular Volume 80.8 fl (81-99); Mean Platelet Volume 8.3 fl (7.4-10.4); Monocytes # 0.4 K/mm3 (0.1-1.0); Monocytes % 2.8 % (1.7-9.3); Neutrophils # 12.6 K/mm3 (1.8-7.8); Neutrophils % 93.6 % (37.0-80.0); Platelet Count 271 K/mm3 (142-424); Red Blood Count 3.43 M/mm3 (4.20-5.40); Red Cell Distribution Width 18.6 % (11.5-17.5); White Blood Count 13.5 K/mm3 (4.8-10.8)
[2023-04-18] MEDS: IPRATROPIUM/ALBUTEROL 3 ML NEB 6 ML IH (05:40)
[2023-04-18 05:45] LABS: VBG Base Excess 0.1 mmol/L (-2.4-2.3); VBG HCO3 26.2 mmol/L (23-30); VBG Oxygen Saturation 53.6 % (50-70); VBG PH 7.32 mmol/L (7.31-7.41); VBG PO2 31.6 mmol/L (28-40); VBG Total CO2 27.8 mmol/L (23-27)
[2023-04-18 05:45] LABS: MANUAL DIFFERENTIAL MANUAL DIFFERENTIAL (MANUAL DIFF)
[2023-04-18 05:52] LABS: Lactate Venous 2.8 mmol/L (0.4-2.0)
[2023-04-18] MEDS: 0.9 % SODIUM CHLORIDE 1000ML 1,000 ML 500 ML IV (05:52)
[2023-04-18] MEDS: ACETAMINOPHEN 500MG TAB 1000 MG PO (05:53)
[2023-04-18] MEDS: CEFTRIAXONE SODIUM 2 GM in 0.9 % SODIUM CHLORIDE 100 ML IV (05:54)
[2023-04-18 05:55] LABS: Influenza A, PCR Detected (NotDetected)
[2023-04-18 05:57] LABS: Alanine Aminotransferase 27 U/L (12-78); Albumin Level 3.8 g/dl (3.5-5.0); Albumin/Globulin Ratio 1.1 (1.1-1.8); Alkaline Phosphatase 171 U/L (38-126); Anion Gap 10.2 mEq/L (5-15); Aspartate Amino Transferase 47 U/L (14-36); Bilirubin,Total 0.4 mg/dl (0.2-1.3); Blood Urea Nitrogen 15 mg/dl (7-17); Calcium 8.5 mg/dl (8.4-10.2); Carbon Dioxide 29 mmol/L (22.0-30.0); Chloride 101 mmol/L (98-107); Creatinine Clearance Estimated 56 mL/min (50-200); Estimated Glomerular Filt Rate 60 ml/min (>60); GFR (African American) 73 ML/MIN (>60); Globulin 3.5 g/dL (1.3-3.2); Glucose 138 mg/dl (74-100); Potassium 3.2 mmoL/L (3.5-5.1); Sodium 137 mmol/L (136-145); Total Protein,Serum 7.3 g/dl (6.3-8.2)
[2023-04-18] MEDS: OSELTAMIVIR 75MG CAPSULE 75 MG PO ×2 (06:03→20:02)
--- NOTE | 2023-04-18 06:07 | PC.NURSE ---
on phone with hospitalist
[2023-04-18 06:09] LABS: Troponin I 0.02 ng/ml (0.00-0.034)
--- NOTE | 2023-04-18 06:09 | PC.NURSE ---
notified [facility] [employer] supervisor of admission
--- NOTE | 2023-04-18 06:09 | PC.NURSE ---
RT @ bedside placing pt on BIPAP
[2023-04-18] MEDS: AZITHROMYCIN 500 MG in 0.9 % SODIUM CHLORIDE 250 ML 250 MG IV (06:11)
[2023-04-18] MEDS: METHYLPREDNISOLONE SOD SUCC 125MG VIAL 125 MG IV (06:12)
[2023-04-18] MEDS: MAGNESIUM SULFATE IN WATER 2 GM/50 ML PIGGYBACK IV (06:17)
--- NOTE | 2023-04-18 06:23 | PC.NURSE ---
call from [employer] supervisor, patient will have to wait for day shift before going up stairs due to staffing
[2023-04-18 06:36] LABS: Anisocytosis 1+; Hypochromasia 1+; Lymphocytes % 5 % (10-50); Neutrophils % 95 % (42-76); Platelet Estimate Normal; Total Cells Counted 100
--- NOTE | 2023-04-18 07:00 | PC.NURSE ---
Received report from previous shift. Pt is admitted, however delay in pt being taken to SCU d/t adjustment with oncoming staff
--- NOTE | 2023-04-18 07:10 | PC.NURSE ---
Pt resting in bed quietly. No needs voiced. Visitor remains at BS.
--- NOTE | 2023-04-18 07:12 | ED_ITS ---
Discharge Plan Disposition Patient Disposition: Admitted Clinical Impressions Clinical Impression: Influenza A with pneumonia, Acute exacerbation of chronic obstructive pulmonary disease Sepsis Qualifiers: Sepsis type: sepsis due to unspecified organism Sepsis acute organ dysfunction status: with acute organ dysfunction Severe sepsis acute organ dysfunction type: acute respiratory failure Acute respiratory failure type: with hypoxia Severe sepsis shock status: without septic shock Qualified Code(s): A41.9 - Sepsis, uns pecified organism Discharge ED Provider: Hernán Carrington Adult HPI General Chief complaint: Chest Pain Stated complaint: CP Time Seen by Provider: 04/18/23 05:28 Mode of Arrival: EMS Source of Information: Patient and EMS Limitations: No Limitations Description of Symptoms (Recalled from ER Triage Doc. by RN): Pt presents to ED via ambulance for chest pain and SOB. Pt has a hx of COPD, CHF, and diabetes. Pt has been in close contact to someone with Flu B and she's concerned she may have it as well. Pt is A&O*4 and is a good historian. Pt is on 4L of O2. Related Data Home Medications Medication Instructions Recorded Confirmed escitalopram oxalate 20 mg tablet 20 mg PO DAILY Depression 02/24/17 04/14/23 biotin 10,000 mcg capsule 10,000 mcg PO DAILY Supplement 05/21/18 04/14/23 pramipexole 1.5 mg tablet 1.5 mg PO HS pain 05/11/22 04/14/23 omeprazole 20 mg capsule,delayed 20 mg PO DAILY 01/17/23 04/14/23 release potassium citrate 99 mg capsule 99 mg PO DAILY 01/17/23 04/14/23 Previous Rx's Medication Instructions Recorded nitroglycerin 0.4 mg sublingual 0.4 mg sublingual Q5M PRN chest 09/17/21 tablet pain #25 tabs albuterol sulfate 90 mcg/actuation 180 mcg inhalation Q6H PRN 08/06/22 breath activated powder shortness of breath or wheezing #1 inhaler,sensor ea atorvastatin 40 mg tablet 40 mg PO HS Cholesterol #90 tabs 01/26/23 clopidogrel 75 mg tablet 75 mg PO DAILY Anti Platelet #90 01/26/23 tabs furosemide 40 mg tablet (Lasix) 80 mg PO BID Fluid #180 tabs 01/26/23 losartan 25 mg tablet 25 mg PO DAILY #90 tabs 01/26/23 metoprolol succinate 50 mg 50 mg PO DAILY High blood pressure 01/26/23 tablet,extended release 24 hr #90 tabs Allergies Allergy/AdvReac Type Severity Reaction Status Date / Time No Known Allergies Allergy Verified 04/14/23 13:01 [facility] Disclaimer: The information contained in this section may have been updated after the patient was seen, as this information can be updated by other users. Medical History Anemia Atrial flutter CAD (coronary artery disease) Carotid artery stenosis Chest wall pain CHF (congestive heart failure) Edema Exertional dyspnea Hernia HLD (hyperlipidemia) HTN (hypertension) Left bundle branch block (LBBB) on electrocardiogram Moderate persistent asthma Preoperative clearance Recent myocardial infarction (~01/27/17) Restrictive lung disease SOB (shortness of breath) Surgical History AICD (automatic cardioverter/defibrillator) present Family History Other Cervical cancer Family history of hyperlipidemia Family history of hypertension Family history of multiple sclerosis Family history of myocardial infarction Lung cancer No significant family history Skin cancer Social History Smoking Status: Former smoker second hand exposure: No alcohol intake: never counseling provided: none substance use type: denies use current occupational status: retired Travel in the last 8 weeks: None household members: children housing: house current occupation: real estate current occupational exposures/hazards: Yes caffeine: Yes Physical Exam General General appearance: alert Medical Decision Making Vital Signs: 04/18/23 05:25 04/18/23 05:30 04/18/23 06:06 Temperature 102.1 F H Temperature Source Oral Pulse Rate 124 H 130 H Pulse Rate [Left] 126 H Respiratory Rate 25 H 30 H 23 Blood Pressure 122/57 L 125/51 L Blood Pressure [Right Arm] 122/57 L Blood Pressure Mean 82 Blood Pressure Mean [Right Arm] 78 02 Sat by Pulse Oximetry 89 L 93 L 89 L Oxygen Delivery Method Nasal Cannula Oxygen Flow Rate (LPM) 4 6 04/18/23 05:40 04/18/23 05:40 04/18/23 05:40 Temperature Temperature Source Pulse Rate 127 H 120 H Pulse Rate [Left] Respiratory Rate Blood Pressure Blood Pressure [Right Arm] Blood Pressure Mean Blood Pressure Mean [Right Arm] 02 Sat by Pulse Oximetry 90 L Oxygen Delivery Method Nasal Cannula Oxygen Flow Rate (LPM) 5 04/18/23 06:13 Temperature Temperature Source Pulse Rate Pulse Rate [Left] Respiratory Rate Blood Pressure Blood Pressure [Right Arm] Blood Pressure Mean Blood Pressure Mean [Right Arm] 02 Sat by Pulse Oximetry 96 Oxygen Delivery Method BiPAP Oxygen Flow Rate (LPM) Lab Data Lab Results 04/18/23 05:28: VBG pH 7.32, VBG pCO2 52.0 H, VBG pO2 31.6, VBG HCO3 26.2, VBG Total CO2 27.8 H, VBG O2 Saturation 53.6, VBG Base Excess 0.1, VBG Lactic Acid 2.8 H 04/18/23 05:30: Lactate 2.0 04/18/23 05:32: WBC 13.5 H, RBC 3.43 L, Hgb 8.6 L, Hct 27.7 L, MCV 80.8 L, MCH 25.0 L, MCHC 30.9 L, RDW 18.6 H, Plt Count 271, MPV 8.3, Neut % (Auto) 93.6 H, Lymph % (Auto) 3.4 L, [place] % (Auto) 2.8, Eos % (Auto) 0.1, Baso % (Auto) 0.1, Neut # (Auto) 12.6 H, Lymph # (Auto) 0.5 L, [place] # (Auto) 0.4, Eos # (Auto) 0.0, Baso # (Auto) 0.0, Total Counted 100, Neutrophils % (Manual) 95 H, Lymphocytes % (Manual) 5 L, Platelet Estimate Normal, Hypochromasia 1+, Anisocytosis 1+, Sodium 137, Potassium 3.2 L, Chloride 101, Carbon Dioxide 29, Anion Gap 10.2, BUN 15, Creatinine 0.90, Estimated Creat Clear 56, Estimated GFR 60, Est GFR ( Amer) 73, Glucose 138 H, Calcium 8.5, Total Bilirubin 0.4, AST 47 H, ALT 27, Alkaline Phosphatase 171 H, Troponin I 0.02, Total Protein 7.3, Albumin 3.8, Globulin 3.5 H, Albumin/Globulin Ratio 1.1, SARS-CoV-2 (PCR) Not detected, Influenza A Untype (PCR) Detected A, Influenza Type B (PCR) Not detected 04/18/23 05:32 04/18/23 05:32 Orders (Tests/Meds): ED MEDICATIONS Generic Name Dose Route Start Last Admin Trade Name Freq PRN Reason Stop Dose Admin Sodium Chloride 1,000 mls @ 500 mls/hr 04/18/23 05:45 04/18/23 05:52 Sod Chlor 0.9% 1000ml Bag IV 04/18/23 07:44 500 mls/hr .Q2H SANTHOSH Administration Discontinued Medications Generic Name Dose Route Start Last Admin Trade Name Freq PRN Reason Stop Dose Admin Acetaminophen 1,000 mg 04/18/23 05:42 04/18/23 05:53 Acetaminophen 500mg Tab PO 04/18/23 05:43 1,000 mg ONCE ONE Administration Albuterol/Ipratropium 6 ml 04/18/23 05:28 04/18/23 05:40 Ipratropium/Albuterol 3 Ml Neb IH 04/18/23 05:29 6 ml ONCE ONE Administration Ceftriaxone Sodium 2 gm/ 100 mls @ 200 mls/hr 04/18/23 05:43 04/18/23 05:54 Sodium Chloride IV 04/18/23 06:12 200 mls/hr ONCE ONE Administration Azithromycin 500 mg/ Sodium 250 mls @ 250 mls/hr 04/18/23 06:01 04/18/23 06:11 Chloride IV 04/18/23 06:02 250 mls/hr ONCE ONE Administration Magnesium Sulfate 2 gm in 50 mls @ 50 mls/hr 04/18/23 06:06 04/18/23 06:17 Magnesium Sulfate 2gm/50ml Premix IV 04/18/23 07:05 50 mls/hr ONCE ONE Administration Methylprednisolone Sodium Succinate 125 mg 04/18/23 06:04 04/18/23 06:12 Methylprednisolone Sod Succ 125mg Vial IV 04/18/23 06:05 125 mg ONCE ONE Administration Oseltamivir Phosphate 75 mg 04/18/23 09:00 Oseltamivir 75mg Capsule PO 04/22/23 21:01 BID SANTHOSH Oseltamivir Phosphate 75 mg 04/18/23 06:01 04/18/23 06:03 Oseltamivir 75mg Capsule PO 04/18/23 06:02 75 mg ONCE ONE Administration ORDERS Category Date Time Status CXR --portable [XR chest portable] Stat Exams 04/18/23 05:28 Taken Basic Metabolic Panel AMLAB Lab 04/19/23 06:00 Ordered CBC w/Auto Diff [Complete Blood Count Auto Diff] Stat Lab 04/18/23 05:32 Completed CMP [Comprehensive Metabolic Panel] Stat Lab 04/18/23 05:32 Completed Complete Blood Count Auto Diff AMLAB Lab 04/19/23 06:00 Ordered Lactate Venous Stat Lab 04/18/23 05:28 Completed Lactic Acid Stat Lab 04/18/23 05:30 Completed Rapid PCR Covid and Flu A/B Stat Lab 04/18/23 05:32 Completed Troponin I Q3H Lab 04/18/23 05:32 Completed Troponin I Q3H Lab 04/18/23 08:30 Ordered Blood Culture Stat Micro 04/18/23 05:55 Received Sputum Culture & Gram Stain Stat Micro 04/18/23 05:30 Received VBG [Venous Blood Gas] Stat RT 04/18/23 05:28 Completed
--- NOTE | 2023-04-18 07:40 | PC.NURSE ---
Pt placed on bedpan. Pt repositioned in bed for comfort. Drink of water provided. Call light remains within reach.
--- NOTE | 2023-04-18 07:56 | HMH.PHAINT1 ---
Pharmacy Intervention Comments: MEDICATION RECONCILIATION COMPLETED ON PATIENT USING EXTERNAL FILL HISTORY FROM PHARMACY. -ANDRIA VILLEGAS, MICHAELD
[2023-04-18 08:59] LABS: Troponin I 0.06 ng/ml (0.00-0.034)
--- NOTE | 2023-04-18 10:10 | EXP.HP ---
History of Present Illness *Admission Date: 04/18/23 *Reason for visit:: SOB, CP *History of present illness: Because she is on BiPAP I patient is a 82-year-old female with past medical history of heart failure with preserved ejection fraction CAD s/p AICD, hypertension asthma who presents to the hospital due to chest pain shortness of breath. According to the patient she had chest pain with shortness of breath. She also felt warm chills as well as he had sick contacts around her. Patient was requiring BiPAP and was admitted for further evaluation. Patient denied diarrhea constipation dysuria [facility] Disclaimer: The information contained in this section may have been updated after the patient was seen, as this information can be updated by other users. Medical History Anemia Atrial flutter CAD (coronary artery disease) Carotid artery stenosis Chest wall pain CHF (congestive heart failure) Edema Exertional dyspnea Hernia HLD (hyperlipidemia) HTN (hypertension) Left bundle branch block (LBBB) on electrocardiogram Moderate persistent asthma Preoperative clearance Recent myocardial infarction (~01/27/17) Restrictive lung disease SOB (shortness of breath) Surgical History AICD (automatic cardioverter/defibrillator) present Family History Other Cervical cancer Family history of hyperlipidemia Family history of hypertension Family history of multiple sclerosis Family history of myocardial infarction Lung cancer No significant family history Skin cancer Social History Smoking Status: Former smoker second hand exposure: No alcohol intake: never counseling provided: none substance use type: denies use current occupational status: retired Travel in the last 8 weeks: None household members: children housing: house current occupation: real estate current occupational exposures/hazards: Yes caffeine: Yes Review of Systems Review of Systems Review of systems (narrative): as per HPI Meds Home Medications and Allergies Home Medications Medication Instructions Recorded Confirmed Type escitalopram oxalate 20 mg tablet 20 mg PO DAILY Mood 02/24/17 04/18/23 History omeprazole 20 mg capsule,delayed 20 mg PO DAILY Acid Reflux 01/17/23 04/18/23 History release potassium citrate 99 mg capsule 99 mg PO DAILY Supplement 01/17/23 04/18/23 History atorvastatin 40 mg tablet 40 mg PO HS Cholesterol #90 tabs 01/26/23 04/18/23 Rx furosemide 40 mg tablet (Lasix) 80 mg PO BID Fluid #180 tabs 01/26/23 04/18/23 Rx metoprolol succinate 50 mg 50 mg PO DAILY High blood pressure 01/26/23 04/18/23 Rx tablet,extended release 24 hr #90 tabs clopidogrel 75 mg tablet 75 mg PO DAILY Platelet Inhibitor 04/18/23 04/18/23 History losartan 25 mg tablet 25 mg PO DAILY High Blood Pressure 04/18/23 04/18/23 History pramipexole 1 mg tablet 2 mg PO HS Restless Leg(S) 04/18/23 04/18/23 History New Prescriptions to Start Prescriptions: Allergies Allergy/AdvReac Type Severity Reaction Status Date / Time No Known Allergies Allergy Verified 04/14/23 13:01 Exam Data for Last 24 hours Vital signs and Labs for Last 24 Hours: Temp Pulse Resp BP Pulse Ox O2 Del Method O2 Flow Rate 98.8 F 99 H 18 118/52 L 97 BiPAP 4 04/18/23 08:00 04/18/23 08:00 04/18/23 08:00 04/18/23 08:00 04/18/23 08:00 04/18/23 09:00 04/18/23 08:00 FiO2 40 04/18/23 06:13 Laboratory Results - last 24 hr 04/18/23 05:28: VBG pH 7.32, VBG pCO2 52.0 H, VBG pO2 31.6, VBG HCO3 26.2, VBG Total CO2 27.8 H, VBG O2 Saturation 53.6, VBG Base Excess 0.1, VBG Lactic Acid 2.8 H 04/18/23 05:30: Lactate 2.0 04/18/23 05:32: WBC 13.5 H, RBC 3.43 L, Hgb 8.6 L, Hct 27.7 L, MCV 80.8 L, MCH 25.0 L, MCHC 30.9 L, RDW 18.6 H, Plt Count 271, MPV 8.3, Neut % (Auto) 93.6 H, Lymph % (Auto) 3.4 L, [place] % (Auto) 2.8, Eos % (Auto) 0.1, Baso % (Auto) 0.1, Neut # (Auto) 12.6 H, Lymph # (Auto) 0.5 L, [place] # (Auto) 0.4, Eos # (Auto) 0.0, Baso # (Auto) 0.0, Total Counted 100, Neutrophils % (Manual) 95 H, Lymphocytes % (Manual) 5 L, Platelet Estimate Normal, Hypochromasia 1+, Anisocytosis 1+, Sodium 137, Potassium 3.2 L, Chloride 101, Carbon Dioxide 29, Anion Gap 10.2, BUN 15, Creatinine 0.90, Estimated Creat Clear 56, Estimated GFR 60, Est GFR ( Amer) 73, Glucose 138 H, Calcium 8.5, Total Bilirubin 0.4, AST 47 H, ALT 27, Alkaline Phosphatase 171 H, Troponin I 0.02, Total Protein 7.3, Albumin 3.8, Globulin 3.5 H, Albumin/Globulin Ratio 1.1, SARS-CoV-2 (PCR) Not detected, Influenza A Untype (PCR) Detected A, Influenza Type B (PCR) Not detected 04/18/23 08:20: Troponin I 0.06 H I & O for Last 24 hours: Intake & Output 04/15/23 04/16/23 04/17/23 04/18/23 23:59 23:59 23:59 23:59 Weight 78.557 kg Constitutional Constitutional: moderate distress and cooperative *Routine HEENT Exam Head: Present normocephalic Eye: Present EOMI and PERRL ENT: Present mucous membranes moist *Routine Neck Exam Neck: Present supple; Absent lymphadenopathy *Routine Respiratory Exam Respiratory: Present respiratory distress, wheezes and diminished air movement *Routine Cardiovascular Exam Cardiovascular: Present RRR *Routine Abdominal Exam Abdominal: Present soft and normoactive bowel sounds; Absent tenderness *Routine Rectal Exam Rectal:: deferred *Routine Genitalia Exam Genitalia:: deferred *Routine Extremities Exam Extremities: Absent cyanosis, clubbing or edema *Routine Skin Exam Skin: Present warm; Absent rash *Routine Neurological Exam Neurological: Present alert and oriented X3 Assessment and Plan *Assessment and plan (1) Influenza A with pneumonia: Status: Acute Category: Medical Code(s): J09.X1 - Influenza due to identified novel influenza A virus with pneumonia (2) Sepsis: Status: Acute Qualifiers: Acute respiratory failure type: with hypoxia Sepsis acute organ dysfunction status: with acute organ dysfunction Sepsis type: sepsis due to unspecified organism Severe sepsis acute organ dysfunction type: acute respiratory failure Severe sepsis shock status: without septic shock Qualified Code(s): A41.9 - Sepsis, unspecified organism; R65.20 - Severe sepsis without septic shock; J96.01 - Acute respiratory failure with hypoxia Category: Medical Code(s): A41.9 - Sepsis, unspecified organism (3) Acute exacerbation of chronic obstructive pulmonary disease: Status: Acute Category: Medical Code(s): J44.1 - Chronic obstructive pulmonary disease with (acute) exacerbation (4) Heart failure with improved ejection fraction (HFimpEF): Status: Acute Category: Medical Code(s): I50.32 - Chronic diastolic (congestive) heart failure (5) Restrictive lung disease: Status: Chronic Category: Medical Code(s): J98.4 - Other disorders of lung (6) CAD (coronary artery disease): Status: Chronic Qualifiers: Coronary Disease-Associated Artery/Lesion type: [place] artery [place] vs. transplanted heart: [place] heart Associated angina: with stable angina Qualified Code(s): I25.118 - Atherosclerotic heart disease of [place] coronary artery with other forms of angina pectoris Category: Medical Code(s): I25.10 - Atherosclerotic heart disease of [place] coronary artery without angina pectoris (7) HTN (hypertension): Status: Chronic Qualifiers: Hypertension type: essential hypertension Qualified Code(s): I10 - Essential (primary) hypertension Category: Medical Code(s): I10 - Essential (primary) hypertension Plan Because she is on BiPAP I patient is a 82-year-old female with past medical history of heart failure with preserved ejection fraction CAD s/p AICD, hypertension asthma who presents to the hospital due to chest pain shortness of breath. According to the patient she had chest pain with shortness of breath. She also felt warm chills as well as he had sick contacts around her. Patient was requiring BiPAP and was admitted for further evaluation. Assessment and plan Chest pain, rule out ACS CAD Elevated troponin: Monitor troponin Monitor on cardiac telemetry Consult cardiology Status post aspirin via EMS Acute hypoxic respiratory failure satting less than 90% on room air Influenza type a Asthma exacerbation Leukocytosis Started on IV Solu-Medrol Empirical antibiotics with Levaquin Continue on BiPAP support, wean as tolerated Start Tamiflu Consult pulmonary Check PCT level Chest x-ray performed in ED does show pulmonary infiltrates Chronic medical conditions CAD Hypertension Hyperlipidemia History of CHF with preserved ejection fraction -Resume home Plavix, losartan, statin, Lasix, metoprolol DVT PPx - lovenox
--- NOTE | 2023-04-18 10:19 | EXP.PULM.CON ---
History of Present Illness History of present illness: Ms. Hinojosa is a 82-year-old female with reported to have heart failure preserved EF, hypertension and asthma presented with worsening chest discomfort and respiratory distress and pulmonary was called for further evaluation and management. Admits worsening respiratory's along with cough productive phlegm body aches and headache. [facility] Disclaimer: The information contained in this section may have been updated after the patient was seen, as this information can be updated by other users. Medical History (Updated 04/18/23 @ 12:01 by Madison Enriquez MD) Anemia Atrial flutter CAD (coronary artery disease) Carotid artery stenosis Chest wall pain CHF (congestive heart failure) Edema Exertional dyspnea Hernia HLD (hyperlipidemia) HTN (hypertension) Left bundle branch block (LBBB) on electrocardiogram Moderate persistent asthma Pneumonia Preoperative clearance Recent myocardial infarction (~01/27/17) Restrictive lung disease SOB (shortness of breath) Surgical History AICD (automatic cardioverter/defibrillator) present Family History Other Cervical cancer Family history of hyperlipidemia Family history of hypertension Family history of multiple sclerosis Family history of myocardial infarction Lung cancer No significant family history Skin cancer Social History Smoking Status: Former smoker second hand exposure: No alcohol intake: never counseling provided: none substance use type: denies use current occupational status: retired Travel in the last 8 weeks: None household members: children housing: house current occupation: real estate current occupational exposures/hazards: Yes caffeine: Yes Review of Systems Constitutional Constitutional: Reports anorexia, Reports body ache(s) and Reports fatigue Eyes Eyes: Denies eye discharge, Denies dry eyes, Denies irritation and Denies itchy eyes ENT Ears, Nose, Mouth, and Throat: Denies epistaxis, Denies facial pain, Denies lip swelling and Denies throat swelling *Cardiovascular Cardiovascular: Reports dyspnea and Reports dyspnea on exertion *Respiratory Respiratory: Reports chest congestion, Reports cough, Reports dyspnea, Reports dyspnea on exertion, Reports excessive phlegm production, Denies hemoptysis, Denies pain on inspiration, Denies pain with cough and Reports wheezing *Gastrointestinal Gastrointestinal: Denies abdominal pain, Denies belching and Denies cramping *Musculoskeletal Musculoskeletal: Reports back pain, Reports myalgias and Reports other (No small joint swelling or Pain) Psychiatric Psychiatric: Denies homicidal ideation and Denies suicidal ideation Endocrine Endocrine: Reports fatigue and Denies heat intolerance Hematologic/Lymphatic Hematologic/Lymphatic: Denies easy bleeding and Denies lymphadenopathy Allergic/Immunologic Allergic/Immunologic: Denies itchy eyes, Denies lip swelling, Denies throat swelling and Reports wheezing Pulmonology Exam Inpatient Vital signs and Labs for Last 24 Hours: Temp Pulse Resp BP Pulse Ox O2 Del Method O2 Flow Rate 98.8 F 96 H 20 134/50 L 95 BiPAP 4 04/18/23 08:00 04/18/23 10:00 04/18/23 10:00 04/18/23 10:00 04/18/23 10:00 04/18/23 10:00 04/18/23 08:00 FiO2 40 04/18/23 06:13 Laboratory Results - last 24 hr 04/18/23 05:28: VBG pH 7.32, VBG pCO2 52.0 H, VBG pO2 31.6, VBG HCO3 26.2, VBG Total CO2 27.8 H, VBG O2 Saturation 53.6, VBG Base Excess 0.1, VBG Lactic Acid 2.8 H 04/18/23 05:30: Lactate 2.0 04/18/23 05:32: WBC 13.5 H, RBC 3.43 L, Hgb 8.6 L, Hct 27.7 L, MCV 80.8 L, MCH 25.0 L, MCHC 30.9 L, RDW 18.6 H, Plt Count 271, MPV 8.3, Neut % (Auto) 93.6 H, Lymph % (Auto) 3.4 L, Carver % (Auto) 2.8, Eos % (Auto) 0.1, Baso % (Auto) 0.1, Neut # (Auto) 12.6 H, Lymph # (Auto) 0.5 L, Carver # (Auto) 0.4, Eos # (Auto) 0.0, Baso # (Auto) 0.0, Total Counted 100, Neutrophils % (Manual) 95 H, Lymphocytes % (Manual) 5 L, Platelet Estimate Normal, Hypochromasia 1+, Anisocytosis 1+, Sodium 137, Potassium 3.2 L, Chloride 101, Carbon Dioxide 29, Anion Gap 10.2, BUN 15, Creatinine 0.90, Estimated Creat Clear 56, Estimated GFR 60, Est GFR ( Amer) 73, Glucose 138 H, Calcium 8.5, Total Bilirubin 0.4, AST 47 H, ALT 27, Alkaline Phosphatase 171 H, Troponin I 0.02, Total Protein 7.3, Albumin 3.8, Globulin 3.5 H, Albumin/Globulin Ratio 1.1, SARS-CoV-2 (PCR) Not detected, Influenza A Untype (PCR) Detected A, Influenza Type B (PCR) Not detected 04/18/23 08:20: Troponin I 0.06 H I & O for Labs for Last 24 Hours: Intake & Output 04/15/23 04/16/23 04/17/23 04/18/23 23:59 23:59 23:59 23:59 Weight 173 lb 3 oz Constitutional: Present moderate distress Head: Present normocephalic and atraumatic ENT: Present normal exam, normal oropharynx and mucous membranes moist Neck: Present normal inspection and full ROM Respiratory: Present respiratory distress, wheezes, diminished air movement and able to speak in complete sentences Cardiac: Present S1/S2, Tachycardia and radial pulses present GI: Present soft and distention; Absent tenderness or guarding Rectal (female): Present deferred (female): Present deferred Skin: Present intact; Absent cyanosis or jaundice Neuro: Present alert, awake and oriented x 3 Extremities: Present normal inspection and edema; Absent clubbing or cyanosis Psychiatric: Present normal affect and cooperative Meds Home Medications and Allergies Home Medications Medication Instructions Recorded Confirmed Type escitalopram oxalate 20 mg tablet 20 mg PO DAILY Mood 02/24/17 04/18/23 History omeprazole 20 mg capsule,delayed 20 mg PO DAILY Acid Reflux 01/17/23 04/18/23 History release potassium citrate 99 mg capsule 99 mg PO DAILY Supplement 01/17/23 04/18/23 History atorvastatin 40 mg tablet 40 mg PO HS Cholesterol #90 tabs 01/26/23 04/18/23 Rx furosemide 40 mg tablet (Lasix) 80 mg PO BID Fluid #180 tabs 01/26/23 04/18/23 Rx metoprolol succinate 50 mg 50 mg PO DAILY High blood pressure 01/26/23 04/18/23 Rx tablet,extended release 24 hr #90 tabs clopidogrel 75 mg tablet 75 mg PO DAILY Platelet Inhibitor 04/18/23 04/18/23 History losartan 25 mg tablet 25 mg PO DAILY High Blood Pressure 04/18/23 04/18/23 History pramipexole 1 mg tablet 2 mg PO HS Restless Leg(S) 04/18/23 04/18/23 History New Prescriptions to Start Prescriptions: Allergies Allergy/AdvReac Type Severity Reaction Status Date / Time No Known Allergies Allergy Verified 04/14/23 13:01 Results Laboratory Findings 04/18/23 05:32 04/18/23 05:32 Abnormal lab findings: Abnormal Labs 04/18/23 04/18/23 04/18/23 05:28 05:32 08:20 WBC 13.5 H RBC 3.43 L Hgb 8.6 L Hct 27.7 L MCV 80.8 L MCH 25.0 L MCHC 30.9 L RDW 18.6 H Neut % (Auto) 93.6 H Lymph % (Auto) 3.4 L Neut # (Auto) 12.6 H Lymph # (Auto) 0.5 L Neutrophils % (Manual) 95 H Lymphocytes % (Manual) 5 L VBG pCO2 52.0 H VBG Total CO2 27.8 H VBG Lactic Acid 2.8 H Potassium 3.2 L Glucose 138 H AST 47 H Alkaline Phosphatase 171 H Troponin I 0.06 H Globulin 3.5 H Influenza A Untype (PCR) Detected A Assessment and Plan *Assessment and plan (1) Sepsis: Status: Acute Qualifiers: Acute respiratory failure type: with hypoxia Sepsis acute organ dysfunction status: with acute organ dysfunction Sepsis type: sepsis due to unspecified organism Severe sepsis acute organ dysfunction type: acute respiratory failure Severe sepsis shock status: without septic shock Qualified Code(s): A41.9 - Sepsis, unspecified organism; R65.20 - Severe sepsis without septic shock; J96.01 - Acute respiratory failure with hypoxia Category: Medical Code(s): A41.9 - Sepsis, unspecified organism (2) Influenza A with pneumonia: Status: Acute Category: Medical Code(s): J09.X1 - Influenza due to identified novel influenza A virus with pneumonia (3) Acute exacerbation of chronic obstructive pulmonary disease: Status: Acute Category: Medical Code(s): J44.1 - Chronic obstructive pulmonary disease with (acute) exacerbation (4) Pneumonia: Status: Acute Category: Medical Code(s): J18.9 - Pneumonia, unspecified organism Plan Ms. Hinojosa is a 82-year-old female with reported to have heart failure preserved EF, hypertension and asthma presented with worsening chest discomfort and respiratory distress and pulmonary was called for further evaluation and management. Neutrophilic predominant leukocytosis upon admission. Chest x-ray concerning right lower lobe infiltrate. Flu PCR resulted positive. Patient on admission was initiated on Tamiflu ceftriaxone azithromycin. She was also initiated on BiPAP. VBG did not show any evidence of hypercarbic respiratory failure. Plan: Continue Tamiflu x 5 days Continue levofloxacin x 5 days Start Trelegy 100 along with Q6 Duo nebs PRN Wean BiPAP to nasal cannula. Continue nasal cannula supplementation to maintain O2 saturation goal of 90 to 95%
[2023-04-18] MEDS: IRBESARTAN 75MG TABLET 37.5 MG PO (10:23)
[2023-04-18] MEDS: CITALOPRAM 40MG TABLET 40 MG PO (10:24)
[2023-04-18] MEDS: METOPROLOL SUCCINATE XL 50MG TABLET 50 MG PO (10:24)
[2023-04-18] MEDS: FUROSEMIDE 80 MG TABLET PO ×2 (10:24→16:47)
[2023-04-18] MEDS: levoFLOXacin 750 MG TABLET PO (10:24)
[2023-04-18] MEDS: CLOPIDOGREL 75MG TAB 75 MG PO (10:24)
--- NOTE | 2023-04-18 10:50 | HMH.OTEV ---
OT Inpatient Evaluation Rehab OT IP Evaluation Start: 04/18/23 10:00 Freq: ONCE Status: Active Protocol: Document 04/18/23 10:44 [facility] (Rec: 04/18/23 10:50 [facility] [id number]) Rehab OT IP Assessment Subjective History Pt oriented x 3 on arrival. Pt agreeable to engage in therapy evaluation. Pt admitted on 04/18/23 due to Sepsis, Flu, and PNA. Pt 82- year-old female with past medical history of heart failure with preserved ejection fraction CAD s/p AICD , hypertension asthma who presents to the hospital due to chest pain shortness of breath. According to the patient she had chest pain with shortness of breath. She also felt warm chills as well as he had sick contacts around her. Patient was requiring BiPAP and was admitted for further evaluation. Patient denied diarrhea constipation dysuria Subjective I did whatever I needed to do . Prior to being in the hospital , pt lived at home with her son. Pt claims normally she is independent with all ADLs and IADLs. Pt does not drive due to macular degeneration. Pt uses a cane at times during functional transfers/mobility . Objective Patient Orientation Person,Place,Birthday Right Upper Extremity Gross ROM WFL Left Upper Extremity Gross ROM WFL Bed Mobility bed mobility-scooting,bed mobility - supine/sit Assist Level Supervision/Stand by Transfer Training Sit/Stand Transfer Assist Level Supervision/Stand by Lower Body Dressing Ability Standby Assistance Rehab OT IP prob,goals,plan Problems Date of Evaluation: 04/18/23 Rehab Potential Rehab Potential Innapropriate for Skilled Therapy Discharge Plan OT Discharge Plan Pt appears to be at her baseline with functional transfers and ADL independence . Pt can return home with her son once she is medically stable per physician. Therapist recommends HH OT evaluation as needed. Eval Complexity Eval Charge Codes 72692 - Low Complexity PHYSICIAN CERTIFICATION: I certify the specified therapy services for Guillermina Hinojosa are required, authorized, and reviewed every 30 days.
--- NOTE | 2023-04-18 10:57 | HMH.PTEV ---
Physical Therapy Evaluation Rehab PT IP Evaluation Start: 04/18/23 10:00 Freq: ONCE Status: Active Protocol: Document 04/18/23 10:52 MOUNAKENNEDY (Rec: 04/18/23 10:56 KATIE [email or web address]) Subjective/History History History Per H&P: Pt admitted on 04/18/23 due to Sepsis, Flu, and PNA. Pt 82- year-old female with past medical history of heart failure with preserved ejection fraction CAD s/p AICD , hypertension asthma who presents to the hospital due to chest pain shortness of breath. According to the patient she had chest pain with shortness of breath. She also felt warm chills as well as he had sick contacts around her. Patient was requiring BiPAP and was admitted for further evaluation. Patient denied diarrhea constipation dysuria Subjective Subjective PLOF per pt report: IND with ADLs and functional mobility with intermittent use of cane. Lives with her son who can help as needed. Not driving prior to admission. New diagnosis of cancer in past 12 No months? Rehab PT IP Eval Objective Appearance Patient Behavior Appropriate,Cooperative Patient Orientation Person,Birthday Difficulty following instructions none Speech Pattern Clear Ambulation Patient Able to Ambulate Yes Ambulation Observation Ambulation Distance (feet) 3 Ambulation Assistive Device None Balance Ability to Arise Able, uses arms to help Sitting Balance Steady, safe Standing Balance Steady, wide stance Transfers Bed Transfer Ability Independent Sit to Stand Bed Transfer Ability Supervision/Stand by Rehab PT IP prob,goals,plan Problems Date of Evaluation: 04/18/23 Rehab Potential Rehab Potential Innapropriate for Skilled Therapy Discharge Plan PT Discharge Plan Pt safe to d/c home when deemed medically necessary d/t current level of mobility, home set-up, and family support. Pt not appropriate for skilled acute care PT at this time d/t pt?s mobility being at baseline. Eval Complexity Eval Charge Codes 18231 - Moderate Complexity PHYSICIAN CERTIFICATION: I certify the specified therapy services for Guillermina Hinojosa are required, authorized, and reviewed every 30 days.
[2023-04-18 11:17] LABS: NT Pro Brain Natriuretic Pep. 1120 pg/mL (0-450)
[2023-04-18 11:20] LABS: Troponin I 0.09 ng/ml (0.00-0.034)
[2023-04-18 11:24] LABS: Procalcitonin 0.353 ng/mL (0.0-2.0)
--- NOTE | 2023-04-18 11:34 | PC.NURSE ---
RESP CARE NOTE: Pt weaned from BIPAP to a nasal cannula at [address] Enriquez. If patient desats, place patient on CPAP not BIPAP.
[2023-04-18 17:07] LABS: Troponin I 0.14 ng/ml (0.00-0.034)
--- NOTE | 2023-04-18 17:31 | EXP.CARD.CON ---
History of Present Illness History of Present Illness Consult date: 04/18/23 Requesting physician: Garcia Garland Consult reason: chest pain and shortness of breath Chief complaint: CP/SOB History of present illness: This is an 82-year-old white female presented to the emergency department with complaints of chest pain and shortness of breath. The patient states that she has been short of breath for the last week or so and started having tightness and pressure in her chest. She states that it did not radiate. She states that she just did not feel well and kept getting worse and worse with her shortness of breath and chest pain. She states that she also had some lower extremity edema. She denied any fever, nausea, vomiting, diarrhea, PND orthopnea. She states that she felt warm but never had a fever. She has been having chills intermittently. 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 [facility] Disclaimer: The information contained in this section may have been updated after the patient was seen, as this information can be updated by other users. Medical History (Updated 04/18/23 @ 17:36 by Eleanor Nunez APRN) Anemia Atrial flutter CAD (coronary artery disease) Carotid artery stenosis Chest wall pain CHF (congestive heart failure) Edema Exertional dyspnea Hernia HLD (hyperlipidemia) HTN (hypertension) Left bundle branch block (LBBB) on electrocardiogram Moderate persistent asthma Pneumonia Preoperative clearance Recent myocardial infarction (~01/27/17) Restrictive lung disease SOB (shortness of breath) Surgical History AICD (automatic cardioverter/defibrillator) present Family History Other Cervical cancer Family history of hyperlipidemia Family history of hypertension Family history of multiple sclerosis Family history of myocardial infarction Lung cancer No significant family history Skin cancer Social History Smoking Status: Former smoker second hand exposure: No alcohol intake: never counseling provided: none substance use type: denies use current occupational status: retired Travel in the last 8 weeks: None household members: children housing: house current occupation: real estate current occupational exposures/hazards: Yes caffeine: Yes Review of Systems Review of Systems Review of systems:: pertinent systems reviewed and negative unless documented below Constitutional Constitutional: Reports system reviewed and no additional complaints, except as documented, Reports chills, Reports fatigue and Reports lethargy Eyes Eyes: Reports system reviewed and no additional complaints, except as documented ENT Ears, Nose, Mouth, and Throat: Reports system reviewed and no additional complaints, except as documented *Cardiovascular Cardiovascular: Reports system reviewed and no additional complaints, except as documented, Reports chest pain, Reports chest pain at rest, Reports chest pain with activity, Reports dyspnea, Reports dyspnea on exertion, Reports leg edema and Reports orthopnea *Respiratory Respiratory: Reports system reviewed and no additional complaints, except as documented, Reports dyspnea and Reports dyspnea on exertion *Gastrointestinal Gastrointestinal: Reports system reviewed and no additional complaints, except as documented *Musculoskeletal Musculoskeletal: Reports system reviewed and no additional complaints, except as documented Integumentary/Breasts Skin/Breast: Reports system reviewed and no additional complaints, except as documented *Neurologic Neurologic: Reports system reviewed and no additional complaints, except as documented Psychiatric Psychiatric: Reports system reviewed and no additional complaints, except as documented Endocrine Endocrine: Reports system reviewed and no additional complaints, except as documented and Reports fatigue Hematologic/Lymphatic Hematologic/Lymphatic: Reports system reviewed and no additional complaints, except as documented Allergic/Immunologic Allergic/Immunologic: Reports system reviewed and no additional complaints, except as documented Exam Data for Last 24 hours Vital signs and Labs for Last 24 Hours: Temp Pulse Resp BP Pulse Ox O2 Del Method O2 Flow Rate 98.9 F 104 H 18 138/63 92 L Nasal Cannula 4 04/18/23 16:00 04/18/23 16:00 04/18/23 16:00 04/18/23 16:00 04/18/23 16:00 04/18/23 17:00 04/18/23 17:00 FiO2 40 04/18/23 06:13 Laboratory Results - last 24 hr 04/18/23 05:28: VBG pH 7.32, VBG pCO2 52.0 H, VBG pO2 31.6, VBG HCO3 26.2, VBG Total CO2 27.8 H, VBG O2 Saturation 53.6, VBG Base Excess 0.1, VBG Lactic Acid 2.8 H 04/18/23 05:30: Lactate 2.0 04/18/23 05:32: WBC 13.5 H, RBC 3.43 L, Hgb 8.6 L, Hct 27.7 L, MCV 80.8 L, MCH 25.0 L, MCHC 30.9 L, RDW 18.6 H, Plt Count 271, MPV 8.3, Neut % (Auto) 93.6 H, Lymph % (Auto) 3.4 L, [place] % (Auto) 2.8, Eos % (Auto) 0.1, Baso % (Auto) 0.1, Neut # (Auto) 12.6 H, Lymph # (Auto) 0.5 L, [place] # (Auto) 0.4, Eos # (Auto) 0.0, Baso # (Auto) 0.0, Total Counted 100, Neutrophils % (Manual) 95 H, Lymphocytes % (Manual) 5 L, Platelet Estimate Normal, Hypochromasia 1+, Anisocytosis 1+, Sodium 137, Potassium 3.2 L, Chloride 101, Carbon Dioxide 29, Anion Gap 10.2, BUN 15, Creatinine 0.90, Estimated Creat Clear 56, Estimated GFR 60, Est GFR ( Amer) 73, Glucose 138 H, Calcium 8.5, Total Bilirubin 0.4, AST 47 H, ALT 27, Alkaline Phosphatase 171 H, Troponin I 0.02, Total Protein 7.3, Albumin 3.8, Globulin 3.5 H, Albumin/Globulin Ratio 1.1, SARS-CoV-2 (PCR) Not detected, Influenza A Untype (PCR) Detected A, Influenza Type B (PCR) Not detected 04/18/23 08:20: Troponin I 0.06 H 04/18/23 10:44: Troponin I 0.09 H, NT-Pro-B Natriuret Pep 1120 H, Procalcitonin 0.353 04/18/23 16:30: Troponin I 0.14 H I & O for Last 24 hours: Intake & Output 04/15/23 04/16/23 04/17/23 04/18/23 23:59 23:59 23:59 23:59 Intake Total 510 / 510 Output Total 0 / 0 Balance 510 / 510 Weight 173 lb 3 oz Constitutional Constitutional: no acute distress and average body habitus *Routine HEENT Exam Head: Present normocephalic and atraumatic ENT: Present mucous membranes moist *Routine Neck Exam Neck: Present supple, full ROM and normal carotid upstroke; Absent JVD, carotid bruit or lymphadenopathy *Routine Respiratory Exam Respiratory: Present CTA bilaterally, normal respiratory effort, able to speak in complete sentences and symmetric chest movement *Routine Cardiovascular Exam Cardiovascular: Present RRR, Normal S1 and Normal S2; Absent murmur or gallop *Routine Abdominal Exam Abdominal: Present soft and normoactive bowel sounds; Absent tenderness, distended or organomegaly *Routine Extremities Exam Extremities: Present full ROM, pulses intact and normal capillary refill; Absent cyanosis, clubbing or edema *Routine Skin Exam Skin: Present intact and warm; Absent erythema *Routine Neurological Exam Neurological: Present alert, oriented X3 and CN II-XII intact; Absent sensory deficit or motor deficit Routine Psychiatric Exam Psychiatric: Present normal affect Meds Home Medications and Allergies Home Medications Medication Instructions Recorded Confirmed Type escitalopram oxalate 20 mg tablet 20 mg PO DAILY Mood 02/24/17 04/18/23 History omeprazole 20 mg capsule,delayed 20 mg PO DAILY Acid Reflux 01/17/23 04/18/23 History release potassium citrate 99 mg capsule 99 mg PO DAILY Supplement 01/17/23 04/18/23 History atorvastatin 40 mg tablet 40 mg PO HS Cholesterol #90 tabs 01/26/23 04/18/23 Rx furosemide 40 mg tablet (Lasix) 80 mg PO BID Fluid #180 tabs 01/26/23 04/18/23 Rx metoprolol succinate 50 mg 50 mg PO DAILY High blood pressure 01/26/23 04/18/23 Rx tablet,extended release 24 hr #90 tabs clopidogrel 75 mg tablet 75 mg PO DAILY Platelet Inhibitor 04/18/23 04/18/23 History losartan 25 mg tablet 25 mg PO DAILY High Blood Pressure 04/18/23 04/18/23 History pramipexole 1 mg tablet 2 mg PO HS Restless Leg(S) 04/18/23 04/18/23 History New Prescriptions to Start Prescriptions: Allergies Allergy/AdvReac Type Severity Reaction Status Date / Time No Known Allergies Allergy Verified 04/14/23 13:01 Assessment and Plan *Assessment and plan (1) Pneumonia: Status: Acute Qualifiers: Pneumonia type: due to unspecified organism Laterality: unspecified laterality Lung location: unspecified part of lung Qualified Code(s): J18.9 - Pneumonia, unspecified organism Category: Medical Code(s): J18.9 - Pneumonia, unspecified organism (2) Sepsis: Status: Acute Qualifiers: Acute respiratory failure type: with hypoxia Sepsis acute organ dysfunction status: with acute organ dysfunction Sepsis type: sepsis due to unspecified organism Severe sepsis acute organ dysfunction type: acute respiratory failure Severe sepsis shock status: without septic shock Qualified Code(s): A41.9 - Sepsis, unspecified organism; R65.20 - Severe sepsis without septic shock; J96.01 - Acute respiratory failure with hypoxia Category: Medical Code(s): A41.9 - Sepsis, unspecified organism (3) Influenza A with pneumonia: Status: Acute Category: Medical Code(s): J09.X1 - Influenza due to identified novel influenza A virus with pneumonia (4) Iron deficiency anemia due to chronic blood loss: Status: Acute Category: Medical Code(s): D50.0 - Iron deficiency anemia secondary to blood loss (chronic) (5) Acute exacerbation of chronic obstructive pulmonary disease: Status: Acute Category: Medical Code(s): J44.1 - Chronic obstructive pulmonary disease with (acute) exacerbation (6) Dyspnea: Status: Chronic Qualifiers: Dyspnea type: shortness of breath Qualified Code(s): R06.02 - Shortness of breath; R06.00 - Dyspnea, unspecified; R06.01 - Orthopnea Category: Medical Code(s): R06.00 - Dyspnea, unspecified (7) Heart failure with improved ejection fraction (HFimpEF): Status: Acute Category: Medical Code(s): I50.32 - Chronic diastolic (congestive) heart failure (8) CAD (coronary artery disease): Status: Chronic Qualifiers: Coronary Disease-Associated Artery/Lesion type: [place] artery [place] vs. transplanted heart: eagle heart Associated angina: with stable angina Qualified Code(s): I25.118 - Atherosclerotic heart disease of eagle coronary artery with other forms of angina pectoris Category: Medical Code(s): I25.10 - Atherosclerotic heart disease of eagle coronary artery without angina pectoris (9) HTN (hypertension): Status: Chronic Qualifiers: Hypertension type: essential hypertension Qualified Code(s): I10 - Essential (primary) hypertension Category: Medical Code(s): I10 - Essential (primary) hypertension (10) AICD (automatic cardioverter/defibrillator) present: Status: Chronic Category: Surgical Code(s): Z95.810 - Presence of automatic (implantable) cardiac defibrillator Plan Plan: 1. The patient was admitted to the hospital with pneumonia and sepsis. She does have influenza A. She is being treated with Tamiflu. She is also being followed by pulmonology. Will defer. 2. The patient does have an acute exacerbation of CHF. She has a preserved ejection fraction on her last echocardiogram but she does have an elevated troponin and a history of LV dysfunction in the past. Will repeat an echocardiogram at this time to reevaluate her EF. 3. We do recommend diuresis with IV Lasix. Will put her on Lasix 40 mg IV twice daily. 4. The patient did have an elevated troponin consistent with a non-STEMI. The patient had a recent heart cath in January of this year with patent coronary artery disease. Will reevaluate her symptoms after treatment of her influenza pneumonia and CHF. If she still remains symptomatic at that time then we will consider repeating left cardiac catheterization at that time. 5. Blood pressure is well-controlled. 6. Her LDL goal is less than 55. On a statin. 7. Continue irbesartan and metoprolol. 8. Further recommendations will be made pending the patient's response to treatment. Thank you for the opportunity to help participate in the care of this patient. All recommendations and orders are per Dr. Villeda.
[2023-04-18] MEDS: PANTOPRAZOLE 40MG TABLET 40 MG PO (20:02)
[2023-04-18] MEDS: PRAMIPEXOLE 1MG TAB 2 MG PO (20:02)
[2023-04-18] MEDS: ATORVASTATIN 40MG TABLET 40 MG PO (20:02)
[2023-04-19] VITALS (13 sets, daily range): BP systolic 117–148; BP diastolic 46–63; PULSE 82–120; RESP 18–24; TEMP 36.6–36.9; O2SAT 90–98; BMI 34.9
[2023-04-19] MEDS: IPRATROPIUM/ALBUTEROL 3 ML NEB IH ×3 (01:17→21:28)
--- NOTE | 2023-04-19 04:46 | PC.NURSE ---
Patient had uneventful night. Continues to wear 4L O2 per NC with 02 sats 90-95%. Patient voiced no c/o of pain thus far in shift. Patient remains A/O x3. Call light within reach.
[2023-04-19 06:28] LABS: Anion Gap 5.2 mEq/L (5-15); Blood Urea Nitrogen 19 mg/dl (7-17); Calcium 8.7 mg/dl (8.4-10.2); Carbon Dioxide 32 mmol/L (22.0-30.0); Chloride 105 mmol/L (98-107); Creatinine Clearance Estimated 55 mL/min (50-200); Estimated Glomerular Filt Rate 69 ml/min (>60); GFR (African American) 83 ML/MIN (>60); Glucose 149 mg/dl (74-100); Potassium 3.2 mmoL/L (3.5-5.1); Sodium 139 mmol/L (136-145)
[2023-04-19 06:29] LABS: Basophils % 0.1 % (0.1-2.0); Hematocrit 24.8 % (37.0-47.0); Lymphocytes # 0.5 K/mm3 (0.7-4.5); Lymphocytes % 3.6 % (10-50); Mean Corpuscular HGB Conc 30.5 g/dL (31.8-35.4); Mean Corpuscular Hemoglobin 24.9 pg (27.0-31.2); Mean Corpuscular Volume 81.6 fl (81-99); Mean Platelet Volume 8.1 fl (7.4-10.4); Monocytes # 0.6 K/mm3 (0.1-1.0); Monocytes % 4.3 % (1.7-9.3); Neutrophils # 12.7 K/mm3 (1.8-7.8); Platelet Count 286 K/mm3 (142-424); Red Blood Count 3.04 M/mm3 (4.20-5.40); Red Cell Distribution Width 18.7 % (11.5-17.5); White Blood Count 13.8 K/mm3 (4.8-10.8)
[2023-04-19 06:33] LABS: MANUAL DIFFERENTIAL MANUAL DIFFERENTIAL (MANUAL DIFF)
[2023-04-19 06:34] LABS: Hemoglobin 7.6 g/dL (12.2-16.2)
[2023-04-19] MEDS: FLUTICASONE/UMECLIDIN/VILANTER 100/62.5/25MCG INHALER 1 PUFF IH (06:34)
[2023-04-19 07:04] LABS: Anisocytosis 1+; Hypochromasia 1+; Lymphocytes % 14 % (10-50); Monocytes % 2 % (2-9); Neutrophils % 84 % (42-76); Platelet Estimate Normal; Total Cells Counted 100
[2023-04-19] MEDS: IRBESARTAN 75MG TABLET 37.5 MG PO (09:02)
[2023-04-19] MEDS: CLOPIDOGREL 75MG TAB 75 MG PO (09:03)
[2023-04-19] MEDS: CITALOPRAM 40MG TABLET 40 MG PO (09:03)
[2023-04-19] MEDS: FUROSEMIDE 40MG/4ML VIAL 40 MG IV ×2 (09:03→16:20)
[2023-04-19] MEDS: METOPROLOL SUCCINATE XL 50MG TABLET 50 MG PO (09:03)
[2023-04-19] MEDS: OSELTAMIVIR 75MG CAPSULE 75 MG PO ×2 (09:03→21:06)
--- NOTE | 2023-04-19 09:52 | EXP.PULM.PN ---
Subjective *Date: 04/19/23 *Time: 11:39 Interval history: Patient denies any new respiratory complaints. Admits continued improvement in her respiratory symptoms. States that she is not comfortable being discharged today. Pulmonology Exam Inpatient Vital signs and Labs for Last 24 Hours: Temp Pulse Resp BP Pulse Ox O2 Del Method O2 Flow Rate 98.2 F 92 H 18 123/46 L 98 Nasal Cannula 4 04/19/23 07:33 04/19/23 06:00 04/19/23 06:00 04/19/23 06:00 04/19/23 06:00 04/19/23 06:53 04/19/23 06:53 FiO2 40 04/18/23 06:13 Laboratory Results - last 24 hr 04/18/23 10:44: Troponin I 0.09 H, NT-Pro-B Natriuret Pep 1120 H, Procalcitonin 0.353 04/18/23 16:30: Troponin I 0.14 H 04/19/23 05:25: WBC 13.8 H, RBC 3.04 L, Hgb 7.6 L D, Hct 24.8 L, MCV 81.6, MCH 24.9 L, MCHC 30.5 L, RDW 18.7 H, Plt Count 286, MPV 8.1, Neut % (Auto) 92.0 H, Lymph % (Auto) 3.6 L, [place] % (Auto) 4.3, Eos % (Auto) 0.0 L, Baso % (Auto) 0.1, Neut # (Auto) 12.7 H, Lymph # (Auto) 0.5 L, [place] # (Auto) 0.6, Eos # (Auto) 0.0, Baso # (Auto) 0.0, Total Counted 100, Neutrophils % (Manual) 84 H, Lymphocytes % (Manual) 14, Monocytes % (Manual) 2, Platelet Estimate Normal, RBC Morphology Not Reportable, Hypochromasia 1+, Anisocytosis 1+, Sodium 139, Potassium 3.2 L, Chloride 105, Carbon Dioxide 32 H, Anion Gap 5.2, BUN 19 H D, Creatinine 0.80, Estimated Creat Clear 55, Estimated GFR 69, Est GFR ( Amer) 83, Glucose 149 H, Calcium 8.7 I & O for Labs for Last 24 Hours: Intake & Output 03/04/0904/17/23 04/18/23 04/19/23 23:59 23:59 23:59 23:59 Intake Total 780 / 780 Output Total 0 / 0 500 / 500 Balance 780 / 780 -500 / -500 Weight 173 lb 3 oz 173 lb 1.006 oz Constitutional: Present moderate distress Head: Present normocephalic and atraumatic ENT: Present normal exam, normal oropharynx and mucous membranes moist Neck: Present normal inspection and full ROM Respiratory: Present prolonged expiratory phase, respiratory distress, wheezes and able to speak in complete sentences Cardiac: Present S1/S2, Tachycardia and radial pulses present GI: Present soft and distention; Absent tenderness or guarding Rectal (female): Present deferred (female): Present deferred Skin: Present intact; Absent cyanosis or jaundice Neuro: Present alert, awake and oriented x 3 Extremities: Present normal inspection and edema; Absent clubbing or cyanosis Psychiatric: Present normal affect and cooperative Assessment and Plan *Assessment and plan (1) Sepsis: Status: Acute Qualifiers: Acute respiratory failure type: with hypoxia Sepsis acute organ dysfunction status: with acute organ dysfunction Sepsis type: sepsis due to unspecified organism Severe sepsis acute organ dysfunction type: acute respiratory failure Severe sepsis shock status: without septic shock Qualified Code(s): A41.9 - Sepsis, unspecified organism; R65.20 - Severe sepsis without septic shock; J96.01 - Acute respiratory failure with hypoxia Category: Medical Code(s): A41.9 - Sepsis, unspecified organism (2) Influenza A with pneumonia: Status: Acute Category: Medical Code(s): J09.X1 - Influenza due to identified novel influenza A virus with pneumonia (3) Acute exacerbation of chronic obstructive pulmonary disease: Status: Acute Category: Medical Code(s): J44.1 - Chronic obstructive pulmonary disease with (acute) exacerbation (4) Pneumonia: Status: Acute Qualifiers: Laterality: unspecified laterality Lung location: unspecified part of lung Pneumonia type: due to unspecified organism Qualified Code(s): J18.9 - Pneumonia, unspecified organism Category: Medical Code(s): J18.9 - Pneumonia, unspecified organism Plan Ms. Hinojosa is a 82-year-old female with reported to have heart failure preserved EF, hypertension and asthma presented with worsening chest discomfort and respiratory distress and pulmonary was called for further evaluation and management. Neutrophilic predominant leukocytosis upon admission. Chest x-ray concerning right lower lobe infiltrate. Flu PCR resulted positive. Patient on admission was initiated on Tamiflu ceftriaxone azithromycin. She was also initiated on BiPAP. VBG did not show any evidence of hypercarbic respiratory failure. Interval update: No acute respiratory events overnight. Admits improvement in symptoms, stated, not comfortable being discharged today. Continue to be oxygen dependent, which is new for her, weaned to 2 L this morning. Plan: Continue Tamiflu x 5 days Continue levofloxacin x 5 days Continue Trelegy 100 along with Q6 Duo nebs PRN Continue oxygen supplementation to maintain O2 saturation goal of 90 to 95%. Currently on 2 L. # Thank you for involving pulmonary in this patient care. Will continue to follow.
[2023-04-19] MEDS: levoFLOXacin 750 MG TABLET PO (10:45)
--- NOTE | 2023-04-19 10:45 | EXP.ACUTE.PN ---
Subjective *Date: 04/19/23 *Time: 14:00 Interval history: Patient continues to be quite weak. Slowly weaning oxygen. On 2 L this morning on rounds. Would benefit from therapy. States she is feeling a little bit better. No nausea or vomiting. No chest pain. Medical Exam Vital signs and Labs for Last 24 Hours: Vital Signs Temp Pulse Pulse Resp BP Pulse Ox O2 Del Method 04/19/23 23:00 Nasal Cannula 04/19/23 21:28 82 04/19/23 21:28 84 04/19/23 21:00 Nasal Cannula 04/19/23 20:00 Nasal Cannula 04/19/23 20:00 85 04/19/23 20:00 98.5 F 85 18 117/59 L 90 L Nasal Cannula 04/19/23 18:40 Nasal Cannula 04/19/23 17:00 Nasal Cannula 04/19/23 11:05 91 H 04/19/23 11:05 90 04/19/23 16:00 83 04/19/23 15:00 Nasal Cannula 04/19/23 15:25 98.4 F 91 H 24 133/55 L 94 L Nasal Cannula 04/19/23 13:00 Nasal Cannula 04/19/23 12:00 90 04/19/23 12:00 98.3 F 92 H 20 131/55 L 93 L Nasal Cannula 04/19/23 11:00 Nasal Cannula 04/19/23 08:00 101 H 04/19/23 08:00 95 Nasal Cannula 04/19/23 09:00 Nasal Cannula 04/19/23 07:33 98.2 F 04/19/23 06:53 Nasal Cannula 04/19/23 06:00 92 H 18 123/46 L 98 Nasal Cannula 04/19/23 05:00 Nasal Cannula 04/19/23 04:00 99 H 04/19/23 04:00 95 Nasal Cannula 04/19/23 04:00 97.9 F 107 H 20 148/63 H 95 Nasal Cannula 04/19/23 02:56 Nasal Cannula 04/19/23 02:00 120 H 20 129/63 90 L Nasal Cannula 04/19/23 01:37 108 H 04/19/23 01:37 109 H 04/19/23 01:00 Nasal Cannula O2 Flow Rate 04/19/23 23:00 5 04/19/23 21:28 04/19/23 21:28 04/19/23 21:00 4 04/19/23 20:00 4 04/19/23 20:00 04/19/23 20:00 04/19/23 18:40 2 04/19/23 17:00 2 04/19/23 11:05 04/19/23 11:05 04/19/23 16:00 04/19/23 15:00 2 04/19/23 15:25 4 04/19/23 13:00 2 04/19/23 12:00 04/19/23 12:00 2 04/19/23 11:00 4 04/19/23 08:00 04/19/23 08:00 4 04/19/23 09:00 4 04/19/23 07:33 04/19/23 06:53 4 04/19/23 06:00 4 04/19/23 05:00 4 04/19/23 04:00 04/19/23 04:00 4 04/19/23 04:00 4 04/19/23 02:56 4 04/19/23 02:00 4 04/19/23 01:37 04/19/23 01:37 04/19/23 01:00 4 Intake and Output 04/19/23 04/19/23 04/20/23 15:59 23:59 07:59 Intake Total 630 / 630 Output Total 1000 / 1200 200 / 1200 Balance -370 / -570 -200 / -570 Intake: Intake, Oral Amount 630 / 630 Output: Output, Urine Amount 1000 / 1200 200 / 1200 Other: Number of Unmeasured Voids 1 1 Number of Bowel Movements 1 1 Weight 78.5 kg Laboratory Results - last 24 hr 04/19/23 05:25: WBC 13.8 H, RBC 3.04 L, Hgb 7.6 L D, Hct 24.8 L, MCV 81.6, MCH 24.9 L, MCHC 30.5 L, RDW 18.7 H, Plt Count 286, MPV 8.1, Neut % (Auto) 92.0 H, Lymph % (Auto) 3.6 L, [place] % (Auto) 4.3, Eos % (Auto) 0.0 L, Baso % (Auto) 0.1, Neut # (Auto) 12.7 H, Lymph # (Auto) 0.5 L, [place] # (Auto) 0.6, Eos # (Auto) 0.0, Baso # (Auto) 0.0, Total Counted 100, Neutrophils % (Manual) 84 H, Lymphocytes % (Manual) 14, Monocytes % (Manual) 2, Platelet Estimate Normal, RBC Morphology Not Reportable, Hypochromasia 1+, Anisocytosis 1+, Sodium 139, Potassium 3.2 L, Chloride 105, Carbon Dioxide 32 H, Anion Gap 5.2, BUN 19 H D, Creatinine 0.80, Estimated Creat Clear 55, Estimated GFR 69, Est GFR ( Amer) 83, Glucose 149 H, Calcium 8.7 I & O for Labs for Last 24 Hours: Intake & Output 04/17/23 04/18/23 04/19/23 04/20/23 23:59 23:59 23:59 23:59 Intake Total 780 / 780 630 / 630 Output Total 0 / 0 1200 / 1200 Balance 780 / 780 -570 / -570 Weight 78.557 kg 78.5 kg Microbiology Reports for the Last 24 Hours: Microbiology 04/18/23 05:30 Sputum - Expectorated Sputum Gram Stain - Final Constitutional: Present no acute distress, obese and chronically ill appearing Head: Present atraumatic and normocephalic ENT: Present normal exam Neck: Present normal inspection Respiratory: Present rhonchi, wheezes and normal respiratory effort; Absent crackles Cardiac: Present Reg Rate and Rhythm GI: Present soft and normal bowel sounds; Absent distention or tenderness (female): Present deferred Extremities: Present normal inspection and full ROM Skin: Present intact; Absent erythema Neuro: Present Grossly Intact, alert, awake, oriented x 3 and moves all extremities Assessment and Plan *Assessment and plan (1) Influenza A with pneumonia: Status: Acute Category: Medical Code(s): J09.X1 - Influenza due to identified novel influenza A virus with pneumonia (2) Sepsis: Status: Acute Qualifiers: Acute respiratory failure type: with hypoxia Sepsis acute organ dysfunction status: with acute organ dysfunction Sepsis type: sepsis due to unspecified organism Severe sepsis acute organ dysfunction type: acute respiratory failure Severe sepsis shock status: without septic shock Qualified Code(s): A41.9 - Sepsis, unspecified organism; R65.20 - Severe sepsis without septic shock; J96.01 - Acute respiratory failure with hypoxia Category: Medical Code(s): A41.9 - Sepsis, unspecified organism (3) Acute exacerbation of chronic obstructive pulmonary disease: Status: Acute Category: Medical Code(s): J44.1 - Chronic obstructive pulmonary disease with (acute) exacerbation (4) Heart failure with improved ejection fraction (HFimpEF): Status: Acute Category: Medical Code(s): I50.32 - Chronic diastolic (congestive) heart failure (5) Restrictive lung disease: Status: Chronic Category: Medical Code(s): J98.4 - Other disorders of lung (6) CAD (coronary artery disease): Status: Chronic Qualifiers: Coronary Disease-Associated Artery/Lesion type: [place] artery [place] vs. transplanted heart: [place] heart Associated angina: with stable angina Qualified Code(s): I25.118 - Atherosclerotic heart disease of [place] coronary artery with other forms of angina pectoris Category: Medical Code(s): I25.10 - Atherosclerotic heart disease of [place] coronary artery without angina pectoris (7) HTN (hypertension): Status: Chronic Qualifiers: Hypertension type: essential hypertension Qualified Code(s): I10 - Essential (primary) hypertension Category: Medical Code(s): I10 - Essential (primary) hypertension Plan Because she is on BiPAP I patient is a 82-year-old female with past medical history of heart failure with preserved ejection fraction CAD s/p AICD, hypertension asthma who presents to the hospital due to chest pain shortness of breath. According to the patient she had chest pain with shortness of breath. She also felt warm chills as well as he had sick contacts around her. Patient was requiring BiPAP and was admitted for further evaluation. Weaned from BiPAP. Showing slight improvement. Continues to require inpatient management however. Pulmonology and cardiology assisting with care. Problems addressed as follows: Acute hypoxemic respiratory failure Influenza A with pneumonia -Chest imaging personally reviewed, right lower lobe pneumonia identified. -White cell count still elevated at 13.8. Repeat CBC, CMP, magnesium ordered for the morning. -Discussed case with pulmonology, recommend continuing treatment as follows. Continue Tamiflu x 5 days. Continue levofloxacin x 5 days. Continue Trelegy 100 inhaler along with DuoNebs every 6 hours as needed. Continue supplemental oxygen, currently on 2 L. Goal sats greater than 90%. Hypertension Hyperlipidemia CAD -Continue Lipitor 40 mg nightly, Plavix 75 mg daily, irbesartan 37.5 mg daily, metoprolol succinate 50 mg daily. GERD: Continue pantoprazole 40 mg nightly Myopericarditis NSTEMI - concern for myopericarditis in the setting of flu. Trivial pericardial effusion on echo. Continue colchicine and ibuprofen. Epression: Continue citalopram 40 mg daily -Preliminary echo with EF 50 to 55% - Continue Lasix 40 mg twice daily. -Bhavani case with cardiology, treatment as above. Monitor for improvement. Will need close follow-up and evaluation for ischemic workup as an outpatient. Full code Regular diet DVT PPx - lovenox
[2023-04-19] MEDS: ENOXAPARIN 40MG/0.4ML SYRINGE 40 MG SQ (11:33)
[2023-04-19] MEDS: IBUPROFEN 400 MG TABLET PO ×2 (12:13→21:05)
[2023-04-19] MEDS: COLCHICINE 0.6MG TABLET 0.599999999999999978 MG PO ×2 (12:14→21:04)
--- NOTE | 2023-04-19 14:23 | P.PN_ITS ---
Subjective Subjective Date: 04/19/23 Time: 13:00 Principal diagnosis: influenza, CHF, elevated troponin Interval history: The patient is still complaining of shortness of breath today but she states that it is somewhat better. She states her chest pain has resolved. She still states that she has a nagging cough that will not go away. She states that she is having a little abdominal pain but this is also improved. She states that she is just very fatigued and tired still and has no energy to do anything. She states her lower extremity edema has improved. She denies any fever, chills, nausea, vomiting, diarrhea, PND or orthopnea. Exam Data for Last 24 hours Vital signs and Labs for Last 24 Hours: Temp Pulse Resp BP Pulse Ox O2 Del Method O2 Flow Rate 98.3 F 92 H 20 131/55 L 93 L Nasal Cannula 2 04/19/23 12:00 04/19/23 12:00 04/19/23 12:00 04/19/23 12:00 04/19/23 12:00 04/19/23 13:00 04/19/23 13:00 FiO2 40 04/18/23 06:13 Laboratory Results - last 24 hr 04/18/23 16:30: Troponin I 0.14 H 04/19/23 05:25: WBC 13.8 H, RBC 3.04 L, Hgb 7.6 L D, Hct 24.8 L, MCV 81.6, MCH 24.9 L, MCHC 30.5 L, RDW 18.7 H, Plt Count 286, MPV 8.1, Neut % (Auto) 92.0 H, Lymph % (Auto) 3.6 L, [place] % (Auto) 4.3, Eos % (Auto) 0.0 L, Baso % (Auto) 0.1, Neut # (Auto) 12.7 H, Lymph # (Auto) 0.5 L, [place] # (Auto) 0.6, Eos # (Auto) 0.0, Baso # (Auto) 0.0, Total Counted 100, Neutrophils % (Manual) 84 H, Lymphocytes % (Manual) 14, Monocytes % (Manual) 2, Platelet Estimate Normal, RBC Morphology Not Reportable, Hypochromasia 1+, Anisocytosis 1+, Sodium 139, Potassium 3.2 L, Chloride 105, Carbon Dioxide 32 H, Anion Gap 5.2, BUN 19 H D, Creatinine 0.80, Estimated Creat Clear 55, Estimated GFR 69, Est GFR ( Amer) 83, Glucose 149 H, Calcium 8.7 I & O for Last 24 hours: Intake & Output 04/16/23 04/17/23 04/18/23 04/19/23 23:59 23:59 23:59 23:59 Intake Total 780 / 780 630 / 630 Output Total 0 / 0 800 / 800 Balance 780 / 780 -170 / -170 Weight 173 lb 3 oz 173 lb 1.006 oz Constitutional Constitutional: no acute distress and average body habitus *Routine HEENT Exam Head: Present normocephalic and atraumatic ENT: Present mucous membranes moist *Routine Neck Exam Neck: Present supple, full ROM and normal carotid upstroke; Absent JVD, carotid bruit or lymphadenopathy *Routine Respiratory Exam Respiratory: Present CTA bilaterally, normal respiratory effort, able to speak in complete sentences and symmetric chest movement *Routine Cardiovascular Exam Cardiovascular: Present RRR, Normal S1 and Normal S2; Absent murmur or gallop *Routine Abdominal Exam Abdominal: Present soft and normoactive bowel sounds; Absent tenderness, distended or organomegaly *Routine Extremities Exam Extremities: Present full ROM, pulses intact and normal capillary refill; Absent cyanosis, clubbing or edema *Routine Skin Exam Skin: Present intact and warm; Absent erythema *Routine Neurological Exam Neurological: Present alert, oriented X3 and CN II-XII intact; Absent sensory deficit or motor deficit Routine Psychiatric Exam Psychiatric: Present normal affect Progress Note: A&P Assessment and plan (1) Myopericarditis: Status: Acute (2) Sepsis: Status: Acute (3) Influenza A with pneumonia: Status: Acute (4) Acute exacerbation of chronic obstructive pulmonary disease: Status: Acute (5) Pneumonia: Status: Acute (6) Iron deficiency anemia due to chronic blood loss: Status: Acute (7) Dyspnea: Status: Chronic (8) Heart failure with improved ejection fraction (HFimpEF): Status: Acute (9) HTN (hypertension): Status: Chronic (10) CAD (coronary artery disease): Status: Chronic (11) AICD (automatic cardioverter/defibrillator) present: Status: Chronic (12) Elevated troponin: Status: Acute Assessment and Plan Assessment and Plan for All Diagnoses:: Plan: 1. The patient was admitted to the hospital with pneumonia and sepsis. She does have influenza A. She is being treated with Tamiflu. She is also being followed by pulmonology. Will defer. 2. The patient does have an acute exacerbation of CHF. Her ejection fraction is around 50 to 55% on echocardiogram this admission. Continue IV Lasix. 3. The patient does have a trivial pericardial effusion. Her echo is valeriy rning for myopericarditis. We do recommend colchicine 0.6 mg p.o. twice daily for 3 months due to the myopericarditis and ibuprofen 400 mg 3 times daily for 3 days. 4. The patient does have an elevated troponin consistent with a type II non- STEMI likely stemming from the myopericarditis. No plans for left cardiac catheterization at this time. 5. Blood pressure is well-controlled. 6. Her LDL goal is less than 55. LDL is 34. On a statin. 7. Continue irbesartan and metoprolol. 8. AICD in place and followed in outpatient cardiology clinic. 9. Further recommendations will be made pending the patient's response to treatment. Thank you for the opportunity to help participate in the care of this patient. All recommendations and orders are per Dr. Villeda.
--- NOTE | 2023-04-19 17:22 | PC.NURSE ---
pt currently on 2L NC, does desat quickly with exertion, recovers quickly as well, has complained of SOA, no other complaints this shift
--- NOTE | 2023-04-19 17:35 | CA_ITS ---
APPROVED REPORT EXAM: Limited 2D Echocardiogram Report Checker: Allison Abreu CRT Ht: 4 ft 11 in Wt: 173lbs BSA: 1.73 BP: 138/63 mmHg Indications: Shortness of Breath R06.02, Chest Pain R07.89, EF CHECK, HTN, CHF, AICD, COPD, FLU A + ECHO 02/02/23 EF 60% M-Mode Dimensions RVDd 2.39 cm (0.9-2.6) LA Diam 2.63 cm (1.9-4.0) LVDd 4.49 cm (3.5-5.7) LVDs 3.14 cm (3.5-5.7) IVSd 1.12 cm (0.6-1.1) PWd 1.20 cm (0.6-1.1) EF (Teich) 57.50% FS 30.10% EDV (Teich) 92.00 mL ESV (Teich) 39.10 mL Other Information Study Quality: Technically Difficult Conclusion This is a limited TTE to evaluate for LVEF, wall motion, and pericardial effusion. Limited windows were obtained. Technically difficult study. The left ventricle is normal in size. There is normal LV wall thickness. The left ventricle systolic function is normal. The septum is asynchronous. There are no regional wall motion abnormalities noted. LVEF is 55%. Trivial, anterior pericardial effusion is present. No echo indications of tamponade. Electronically signed by : Arielle Villeda MD 04/19/2023 18:47:29
[2023-04-19] MEDS: PANTOPRAZOLE 40MG TABLET 40 MG PO (21:04)
[2023-04-19] MEDS: PRAMIPEXOLE 1MG TAB 2 MG PO (21:04)
[2023-04-19] MEDS: ATORVASTATIN 40MG TABLET 40 MG PO (21:05)
[2023-04-20] VITALS (15 sets, daily range): BP systolic 117–152; BP diastolic 50–59; PULSE 76–108; RESP 17–30; TEMP 36.4–37.1; O2SAT 91–95
[2023-04-20] MEDS: FLUTICASONE/UMECLIDIN/VILANTER 100/62.5/25MCG INHALER 1 PUFF IH (06:40)
[2023-04-20] MEDS: IBUPROFEN 400 MG TABLET PO ×3 (06:47→20:55)
[2023-04-20 06:59] LABS: Basophils % 0.5 % (0.1-2.0); Eosinophils # 0.1 K/mm3 (0.0-0.4); Eosinophils % 0.6 % (0.1-12.0); Hematocrit 25.2 % (37.0-47.0); Hemoglobin 7.4 g/dL (12.2-16.2); Lymphocytes # 0.9 K/mm3 (0.7-4.5); Lymphocytes % 9.3 % (10-50); Mean Corpuscular HGB Conc 29.4 g/dL (31.8-35.4); Mean Corpuscular Hemoglobin 24.9 pg (27.0-31.2); Mean Corpuscular Volume 84.8 fl (81-99); Mean Platelet Volume 8.2 fl (7.4-10.4); Monocytes # 0.5 K/mm3 (0.1-1.0); Monocytes % 5.3 % (1.7-9.3); Neutrophils % 84.4 % (37.0-80.0); Platelet Count 282 K/mm3 (142-424); Red Blood Count 2.97 M/mm3 (4.20-5.40); Red Cell Distribution Width 18.7 % (11.5-17.5); White Blood Count 9.5 K/mm3 (4.8-10.8)
[2023-04-20 07:03] LABS: Alanine Aminotransferase 27 U/L (12-78); Albumin Level 3.4 g/dl (3.5-5.0); Alkaline Phosphatase 149 U/L (38-126); Aspartate Amino Transferase 73 U/L (14-36); Bilirubin,Total 0.6 mg/dl (0.2-1.3); Blood Urea Nitrogen 31 mg/dl (7-17); Calcium 8.4 mg/dl (8.4-10.2); Carbon Dioxide 27 mmol/L (22.0-30.0); Chloride 106 mmol/L (98-107); Creatinine Clearance Estimated 55 mL/min (50-200); Estimated Glomerular Filt Rate 53 ml/min (>60); GFR (African American) 64 ML/MIN (>60); Globulin 3.5 g/dL (1.3-3.2); Glucose 99 mg/dl (74-100); Sodium 140 mmol/L (136-145); Total Protein,Serum 6.9 g/dl (6.3-8.2)
[2023-04-20] MEDS: IPRATROPIUM/ALBUTEROL 3 ML NEB IH ×4 (07:16→22:02)
[2023-04-20 07:35] LABS: Magnesium 2.4 mg/dl (1.6-2.3)
--- NOTE | 2023-04-20 09:40 | EXP.PULM.PN ---
Subjective *Date: 04/20/23 *Time: 11:07 Interval history: Worsening respiratory distress overnight. Pulmonology Exam Inpatient Vital signs and Labs for Last 24 Hours: Temp Pulse Resp BP Pulse Ox O2 Del Method O2 Flow Rate 98.5 F 98 H 30 H 152/55 H 94 L Nasal Cannula 6 04/20/23 07:51 04/20/23 07:51 04/20/23 07:51 04/20/23 07:51 04/20/23 07:51 04/20/23 07:55 04/20/23 07:55 FiO2 40 04/20/23 00:53 Laboratory Results - last 24 hr 04/20/23 05:13: WBC 9.5 D, RBC 2.97 L, Hgb 7.4 L, Hct 25.2 L, MCV 84.8, MCH 24.9 L, MCHC 29.4 L, RDW 18.7 H, Plt Count 282, MPV 8.2, Neut % (Auto) 84.4 H, Lymph % (Auto) 9.3 L, [place] % (Auto) 5.3, Eos % (Auto) 0.6, Baso % (Auto) 0.5, Neut # (Auto) 8.0 H, Lymph # (Auto) 0.9, [place] # (Auto) 0.5, Eos # (Auto) 0.1, Baso # (Auto) 0.0, Sodium 140, Potassium 4.0 D, Chloride 106, Carbon Dioxide 27, Anion Gap 11.0, BUN 31 H D, Creatinine 1.00 D, Estimated Creat Clear 55, Estimated GFR 53 L, Est GFR ( Amer) 64 D, Glucose 99 D, Calcium 8.4, Magnesium 2.4 H, Total Bilirubin 0.6, AST 73 H D, ALT 27, Alkaline Phosphatase 149 H, Total Protein 6.9, Albumin 3.4 L, Globulin 3.5 H, Albumin/Globulin Ratio 1.0 L I & O for Labs for Last 24 Hours: Intake & Output 04/17/23 04/18/23 04/19/23 04/20/23 23:59 23:59 23:59 23:59 Intake Total 780 / 780 630 / 730 340 / 340 Output Total 0 / 0 1200 / 1200 0 / 0 Balance 780 / 780 -570 / -470 340 / 340 Weight 173 lb 3 oz 173 lb 1.006 oz Microbiology Reports for the Last 24 Hours: Microbiology 04/18/23 05:30 Sputum - Expectorated Sputum Gram Stain - Final Constitutional: Present moderate distress Head: Present normocephalic and atraumatic ENT: Present normal exam, normal oropharynx and mucous membranes moist Neck: Present normal inspection and full ROM Respiratory: Present prolonged expiratory phase, respiratory distress and wheezes; Absent able to speak in complete sentences Cardiac: Present S1/S2, Tachycardia and radial pulses present GI: Present soft and distention; Absent tenderness or guarding Rectal (female): Present deferred (female): Present deferred Skin: Present intact; Absent cyanosis or jaundice Neuro: Present alert, awake and oriented x 3 Extremities: Present normal inspection and edema; Absent clubbing or cyanosis Psychiatric: Present normal affect and cooperative Assessment and Plan *Assessment and plan (1) Influenza A with pneumonia: Status: Acute Category: Medical Code(s): J09.X1 - Influenza due to identified novel influenza A virus with pneumonia (2) Sepsis: Status: Acute Qualifiers: Acute respiratory failure type: with hypoxia Sepsis acute organ dysfunction status: with acute organ dysfunction Sepsis type: sepsis due to unspecified organism Severe sepsis acute organ dysfunction type: acute respiratory failure Severe sepsis shock status: without septic shock Qualified Code(s): A41.9 - Sepsis, unspecified organism; R65.20 - Severe sepsis without septic shock; J96.01 - Acute respiratory failure with hypoxia Category: Medical Code(s): A41.9 - Sepsis, unspecified organism (3) Acute exacerbation of chronic obstructive pulmonary disease: Status: Acute Category: Medical Code(s): J44.1 - Chronic obstructive pulmonary disease with (acute) exacerbation (4) Restrictive lung disease: Status: Chronic Category: Medical Code(s): J98.4 - Other disorders of lung (5) Pneumonia: Status: Acute Qualifiers: Laterality: unspecified laterality Lung location: unspecified part of lung Pneumonia type: due to unspecified organism Qualified Code(s): J18.9 - Pneumonia, unspecified organism Category: Medical Code(s): J18.9 - Pneumonia, unspecified organism Plan Ms. Hinojosa is a 82-year-old female with reported to have heart failure preserved EF, hypertension and asthma presented with worsening chest discomfort and respiratory distress and pulmonary was called for further evaluation and management. Neutrophilic predominant leukocytosis upon admission. Chest x-ray concerning right lower lobe infiltrate. Flu PCR resulted positive. Patient on admission was initiated on Tamiflu ceftriaxone azithromycin. She was also initiated on BiPAP. VBG did not show any evidence of hypercarbic respiratory failure. Interval update: Worsening respiratory distress overnight. On examination patient appeared to be more distress, significant worsening wheezing on auscultation. Plan: Continue Tamiflu x 10 days Continue levofloxacin x 5 days Change inhalers to DuoNebs every 4 hours and Pulmicort every 12 scheduled Prednisone 40 mg daily x 5 days Continue oxygen supplementation to maintain O2 saturation goal of 90 to 95%. # Thank you for involving pulmonary in this patient care. Will continue to follow.
[2023-04-20] MEDS: CITALOPRAM 40MG TABLET 40 MG PO (09:43)
[2023-04-20] MEDS: CLOPIDOGREL 75MG TAB 75 MG PO (09:43)
[2023-04-20] MEDS: ENOXAPARIN 40MG/0.4ML SYRINGE 40 MG SQ (09:44)
[2023-04-20] MEDS: METOPROLOL SUCCINATE XL 50MG TABLET 50 MG PO (09:44)
[2023-04-20] MEDS: OSELTAMIVIR 75MG CAPSULE 75 MG PO ×2 (09:44→20:56)
[2023-04-20] MEDS: COLCHICINE 0.6MG TABLET 0.599999999999999978 MG PO ×2 (09:44→20:56)
[2023-04-20] MEDS: IRBESARTAN 75MG TABLET 37.5 MG PO (09:44)
--- NOTE | 2023-04-20 09:44 | XR_ITS ---
FINAL REPORT CLINICAL HISTORY: Hypoxia COMPARISON: 04/18/2023 FINDINGS: SINGLE-VIEW CHEST The heart size is normal. The mediastinum is normal. Subclavian ICD is present. There are worsening right base opacities, favor atelectasis over pneumonia. There is no pneumothorax. IMPRESSION: Worsening right base opacities, favor atelectasis over pneumonia. Reviewed, Interpreted and Dictated by Jorgito Abdi III, MD Transcribed by Leila Olmedo Authenticated and [facility]
[2023-04-20] MEDS: FUROSEMIDE 40MG/4ML VIAL 40 MG IV ×2 (09:45→15:45)
[2023-04-20] MEDS: levoFLOXacin 750 MG TABLET PO (11:02)
[2023-04-20] MEDS: predniSONE 20MG TAB 40 MG PO (11:30)
--- NOTE | 2023-04-20 12:39 | CT_ITS ---
FINAL REPORT TECHNIQUE: Axial CT images were performed from the lung apices through the upper abdomen. Coronal reformats were submitted. This study was performed with techniques to keep radiation doses as low as reasonably achievable (ALARA). Individualized dose reduction techniques using automated exposure control or adjustment of mA and/or kV according to the patient's size were employed. CLINICAL HISTORY: sob, flu + COMPARISON: 07/21/2022 FINDINGS: There is no axillary adenopathy. There is no hilar or mediastinal mass or adenopathy. Heart size is normal. Left subclavian pacer is identified. There is a small hiatal hernia. There is no pericardial or pleural effusion. Patient is status post cholecystectomy. There is mild atelectasis or scar in the lung bases. There are new, multifocal ground-glass opacities, may represent multifocal pneumonia. IMPRESSION: New multifocal ground-glass opacities, may represent multifocal pneumonia. Reviewed, Interpreted and Dictated by Jorgito Abdi III, MD Transcribed by Leila Olmedo Authenticated and [facility]
--- NOTE | 2023-04-20 12:40 | CA_ITS ---
APPROVED REPORT EXAM: Limited 2D Echocardiogram Disability Rater: RT Rachel(R) Ht: 4 ft 11 in Wt: 173lbs BSA: 1.73 BP: 130/50 mmHg Indications: SOB, trivial pericardial effusion seen on echo 04/19/23, FLU, CP, sepsis, AICD, ex smoker, HTN, hyperlipdiemia, COPD, edema. Ordered as a limited to reassess effusion. 2D Dimensions EF AP4 49.00 % GL Strain -14.8 % Other Information Study Quality: Fair Conclusion This is a limited TTE to evaluate for pericardial effusion. Limited windows were obtained. There is a small sized, anterior pericardial effusion present. The largest pocket measures 0.6 cm in diastole towards the anterior apical region along the RV free wall. There is no evidence of RA or RV collapse in systole and diastole, respectively. No evidence of transvalvular respirophasic variation. The IVC is not well-visualized. Overall, no clear echo indications of tamponade. Compared to prior study from 1 day prior on 04/19/2023, the pericardial effusion now appears larger. Electronically signed by : Arielle Villead MD 04/20/2023 21:10:17
--- NOTE | 2023-04-20 12:50 | PC.NURSE ---
echo at bedside.
--- NOTE | 2023-04-20 13:24 | PC.NURSE ---
arrived to [facility] by w/c from x-ray (from [facility])
--- NOTE | 2023-04-20 14:28 | EXP.CARD.PN ---
Subjective Subjective Date: 04/20/23 Time: 13:30 Principal diagnosis: influenza, CHF, elevated troponin Interval history: The patient is complaining of worsening shortness of breath today. She states that she just does not feel well. She denies any chest pain or pressure. She continues to have a cough. Her oxygen demands did worsen overnight. She is now on nasal cannula at 6 L. She denies any lower extremity edema today. She denies any fever, chills, nausea, vomiting, diarrhea, PND or orthopnea. Exam Data for Last 24 hours Vital signs and Labs for Last 24 Hours: Temp Pulse Resp BP Pulse Ox O2 Del Method O2 Flow Rate 98.1 F 79 25 H 130/50 L 95 Nasal Cannula 5 04/20/23 11:14 04/20/23 14:10 04/20/23 11:14 04/20/23 11:14 04/20/23 11:14 04/20/23 12:50 04/20/23 12:50 FiO2 40 04/20/23 00:53 Laboratory Results - last 24 hr 04/20/23 05:13: WBC 9.5 D, RBC 2.97 L, Hgb 7.4 L, Hct 25.2 L, MCV 84.8, MCH 24.9 L, MCHC 29.4 L, RDW 18.7 H, Plt Count 282, MPV 8.2, Neut % (Auto) 84.4 H, Lymph % (Auto) 9.3 L, [place] % (Auto) 5.3, Eos % (Auto) 0.6, Baso % (Auto) 0.5, Neut # (Auto) 8.0 H, Lymph # (Auto) 0.9, [place] # (Auto) 0.5, Eos # (Auto) 0.1, Baso # (Auto) 0.0, Sodium 140, Potassium 4.0 D, Chloride 106, Carbon Dioxide 27, Anion Gap 11.0, BUN 31 H D, Creatinine 1.00 D, Estimated Creat Clear 55, Estimated GFR 53 L, Est GFR ( Amer) 64 D, Glucose 99 D, Calcium 8.4, Magnesium 2.4 H, Total Bilirubin 0.6, AST 73 H D, ALT 27, Alkaline Phosphatase 149 H, Total Protein 6.9, Albumin 3.4 L, Globulin 3.5 H, Albumin/Globulin Ratio 1.0 L I & O for Last 24 hours: Intake & Output 04/17/23 04/18/23 04/19/23 04/20/23 23:59 23:59 23:59 23:59 Intake Total 780 / 780 630 / 730 610 / 610 Output Total 0 / 0 1200 / 1200 0 / 0 Balance 780 / 780 -570 / -470 610 / 610 Weight 173 lb 3 oz 173 lb 1.006 oz Microbiology Reports for the Last 24 Hours: Microbiology 04/18/23 05:30 Sputum - Expectorated Sputum Gram Stain - Final Constitutional Constitutional: mild distress and obese *Routine HEENT Exam Head: Present normocephalic and atraumatic ENT: Present mucous membranes moist *Routine Neck Exam Neck: Present supple, full ROM and normal carotid upstroke; Absent JVD, carotid bruit or lymphadenopathy *Routine Respiratory Exam Respiratory: Present wheezes *Routine Cardiovascular Exam Cardiovascular: Present RRR, Normal S1 and Normal S2; Absent murmur or gallop *Routine Abdominal Exam Abdominal: Present soft and normoactive bowel sounds; Absent tenderness, distended or organomegaly *Routine Extremities Exam Extremities: Present full ROM, pulses intact and normal capillary refill; Absent cyanosis, clubbing or edema *Routine Skin Exam Skin: Present intact and warm; Absent erythema *Routine Neurological Exam Neurological: Present alert, oriented X3 and CN II-XII intact; Absent sensory deficit or motor deficit Routine Psychiatric Exam Psychiatric: Present normal affect Progress Note: A&P Assessment and plan (1) Influenza A with pneumonia: Status: Acute (2) Sepsis: Status: Acute (3) Acute exacerbation of chronic obstructive pulmonary disease: Status: Acute (4) Restrictive lung disease: Status: Chronic (5) Pneumonia: Status: Acute (6) Elevated troponin: Status: Acute (7) Myopericarditis: Status: Acute (8) CAD (coronary artery disease): Status: Chronic (9) HTN (hypertension): Status: Chronic (10) AICD (automatic cardioverter/defibrillator) present: Status: Chronic (11) HLD (hyperlipidemia): Status: Acute Assessment and Plan Assessment and Plan for All Diagnoses:: Plan: 1. 1. The patient was admitted to the hospital with influenza pneumonia and sepsis. She does have influenza A. She is being treated with Tamiflu. She is also being followed by pulmonology. Will defer. 2. The patient does have an acute exacerbation of CHF. Her ejection fraction is around 50 to 55% on echocardiogram this admission. She had a -500 fluid balance overnight. Continue IV Lasix. 3. The patient is currently being treated for myopericarditis with colchicine and ibuprofen. This is most likely the cause of her type II non-STEMI. 4. The patient has had worsening or respiratory distress overnight. She has significantly worse wheezing today. Will repeat her limited echocardiogram to make sure that her trivial pericardial effusion has not worsened. 5. Will get a CT chest without contrast to further evaluate her pneumonia. 6. The patient does have known coronary artery disease which is likely stable. 7. Her blood pressure is well-controlled. 8. Her LDL goal is less than 55. LDL is 34. On a statin. 9. Continue irbesartan and metoprolol. 10. AICD in place and followed in outpatient cardiology clinic. 11. Further recommendations will be made pending the patient's response to treatment. Thank you for the opportunity to help participate in the care of this patient. All recommendations and orders are per Dr. Villeda.
[2023-04-20] MEDS: BUDESONIDE 0.5MG/2ML NEB 0.5 MG IH (18:30)
[2023-04-20] MEDS: ATORVASTATIN 40MG TABLET 40 MG PO (20:55)
[2023-04-20] MEDS: PANTOPRAZOLE 40MG TABLET 40 MG PO (20:55)
[2023-04-20] MEDS: PRAMIPEXOLE 1MG TAB 2 MG PO (20:56)
--- NOTE | 2023-04-20 21:38 | P.PN_ITS ---
Subjective *Date: 04/20/23 *Time: 21:38 Interval history: Patient more ill-appearing today. States she is feeling better but clinically looks worse. Increased oxygen requirement. Wore CPAP overnight. On 6 L this morning on rounds. No nausea or vomiting. Quite weak. Afebrile. Medical Exam Vital signs and Labs for Last 24 Hours: Vital Signs Temp Pulse Pulse Resp BP Pulse Ox O2 Del Method 04/20/23 20:00 97.9 F 108 H 17 124/54 L 92 L Nasal Cannula 04/20/23 18:51 78 04/20/23 18:51 78 04/20/23 18:51 91 L Nasal Cannula 04/20/23 17:57 Nasal Cannula 04/20/23 17:00 Nasal Cannula 04/20/23 15:56 98.3 F 99 H 20 142/56 H 91 L Nasal Cannula 04/20/23 15:00 Nasal Cannula 04/20/23 14:10 79 04/20/23 14:10 77 04/20/23 12:50 Nasal Cannula 04/20/23 12:00 105 H 04/20/23 11:14 98.1 F 85 25 H 130/50 L 95 Room Air 04/20/23 11:00 Nasal Cannula 04/20/23 08:00 101 H 04/20/23 08:00 91 L Nasal Cannula 04/20/23 07:55 Nasal Cannula 04/20/23 07:51 98.5 F 98 H 30 H 152/55 H 94 L Nasal Cannula 04/20/23 07:16 83 04/20/23 07:16 85 04/20/23 06:50 Nasal Cannula 04/20/23 05:00 Nasal Cannula 04/20/23 04:00 76 04/20/23 03:47 97.6 F 89 20 118/50 L 95 CPAP 04/20/23 03:00 CPAP 04/20/23 01:00 CPAP 04/20/23 00:53 04/20/23 00:00 98.7 F 90 19 117/59 L 93 L Nasal Cannula 04/20/23 00:00 90 04/19/23 23:00 Nasal Cannula O2 Flow Rate FiO2 04/20/23 20:00 04/20/23 18:51 04/20/23 18:51 04/20/23 18:51 5 04/20/23 17:57 5 04/20/23 17:00 5 04/20/23 15:56 5 04/20/23 15:00 5 04/20/23 14:10 04/20/23 14:10 04/20/23 12:50 5 04/20/23 12:00 04/20/23 11:14 04/20/23 11:00 5 04/20/23 08:00 04/20/23 08:00 5 04/20/23 07:55 6 04/20/23 07:51 6 04/20/23 07:16 04/20/23 07:16 04/20/23 06:50 6 04/20/23 05:00 6 04/20/23 04:00 04/20/23 03:47 04/20/23 03:00 04/20/23 01:00 04/20/23 00:53 40 04/20/23 00:00 04/20/23 00:00 04/19/23 23:00 5 Intake and Output 04/20/23 04/20/23 04/20/23 07:59 15:59 23:59 Intake Total 340 / 850 270 / 850 240 / 850 Output Total 0 / 0 Balance 340 / 850 270 / 850 240 / 850 Intake: Intake, Oral Amount 340 / 850 270 / 850 240 / 850 Output: Output, Urine Amount 0 / 0 Other: Number of Unmeasured Voids 1 Number of Bowel Movements 1 Laboratory Results - last 24 hr 04/20/23 05:13: WBC 9.5 D, RBC 2.97 L, Hgb 7.4 L, Hct 25.2 L, MCV 84.8, MCH 24.9 L, MCHC 29.4 L, RDW 18.7 H, Plt Count 282, MPV 8.2, Neut % (Auto) 84.4 H, Lymph % (Auto) 9.3 L, [place] % (Auto) 5.3, Eos % (Auto) 0.6, Baso % (Auto) 0.5, Neut # (Auto) 8.0 H, Lymph # (Auto) 0.9, [place] # (Auto) 0.5, Eos # (Auto) 0.1, Baso # (Auto) 0.0, Sodium 140, Potassium 4.0 D, Chloride 106, Carbon Dioxide 27, Anion Gap 11.0, BUN 31 H D, Creatinine 1.00 D, Estimated Creat Clear 55, Estimated GFR 53 L, Est GFR ( Amer) 64 D, Glucose 99 D, Calcium 8.4, Magnesium 2.4 H, Total Bilirubin 0.6, AST 73 H D, ALT 27, Alkaline Phosphatase 149 H, Total Protein 6.9, Albumin 3.4 L, Globulin 3.5 H, Albumin/Globulin Ratio 1.0 L I & O for Labs for Last 24 Hours: Intake & Output 04/17/23 04/18/23 04/19/23 04/20/23 23:59 23:59 23:59 23:59 Intake Total 780 / 780 630 / 730 850 / 850 Output Total 0 / 0 1200 / 1200 0 / 0 Balance 780 / 780 -570 / -470 850 / 850 Weight 78.557 kg 78.5 kg Constitutional: Present no acute distress, obese and chronically ill appearing Comment:: ill appearing Head: Present atraumatic and normocephalic ENT: Present normal exam Neck: Present normal inspection Respiratory: Present rhonchi, wheezes and normal respiratory effort; Absent crackles Cardiac: Present Reg Rate and Rhythm GI: Present soft and normal bowel sounds; Absent distention or tenderness (female): Present deferred Extremities: Present normal inspection and full ROM Skin: Present intact; Absent erythema Neuro: Present Grossly Intact, alert, awake, oriented x 3 and moves all extremities Assessment and Plan *Assessment and plan (1) Influenza A with pneumonia: Status: Acute Category: Medical Code(s): J09.X1 - Influenza due to identified novel influenza A virus with pneumonia (2) Sepsis: Status: Acute Qualifiers: Acute respiratory failure type: with hypoxia Sepsis acute organ dysfunction status: with acute organ dysfunction Sepsis type: sepsis due to unspecified organism Severe sepsis acute organ dysfunction type: acute respiratory failure Severe sepsis shock status: without septic shock Qualified Code(s): A41.9 - Sepsis, unspecified organism; R65.20 - Severe sepsis without septic shock; J96.01 - Acute respiratory failure with hypoxia Category: Medical Code(s): A41.9 - Sepsis, unspecified organism (3) Acute exacerbation of chronic obstructive pulmonary disease: Status: Acute Category: Medical Code(s): J44.1 - Chronic obstructive pulmonary disease with (acute) exacerbation (4) Heart failure with improved ejection fraction (HFimpEF): Status: Acute Category: Medical Code(s): I50.32 - Chronic diastolic (congestive) heart failure (5) Restrictive lung disease: Status: Chronic Category: Medical Code(s): J98.4 - Other disorders of lung (6) CAD (coronary artery disease): Status: Chronic Qualifiers: Coronary Disease-Associated Artery/Lesion type: [place] artery [place] vs. transplanted heart: [place] heart Associated angina: with stable angina Qualified Code(s): I25.118 - Atherosclerotic heart disease of [place] coronary artery with other forms of angina pectoris Category: Medical Code(s): I25.10 - Atherosclerotic heart disease of [place] coronary artery without angina pectoris (7) HTN (hypertension): Status: Chronic Qualifiers: Hypertension type: essential hypertension Qualified Code(s): I10 - Essential (primary) hypertension Category: Medical Code(s): I10 - Essential (primary) hypertension Plan Because she is on BiPAP I patient is a 82-year-old female with past medical history of heart failure with preserved ejection fraction CAD s/p AICD, hypertension asthma who presents to the hospital due to chest pain shortness of breath. According to the patient she had chest pain with shortness of breath. She also felt warm chills as well as he had sick contacts around her. Patient was requiring BiPAP and was admitted for further evaluation. Weaned from BiPAP. Showing slight improvement. Continues to require inpatient management however. Pulmonology and cardiology assisting with care. Problems addressed as follows: Acute hypoxemic respiratory failure Influenza A with pneumonia - Discussed case with pulmonology, continue Tamiflu for 10 days. Continue levofloxacin for 5 days. Recommend continuing DuoNebs every 4 hours and Pulmicort every 12 hours. - Goal saturation greater than 90%, continue supplemental oxygen. Currently 5 L. -White cell count improved to 9.5. Repeat CBC, CMP, magnesium ordered for the morning. Hypertension Hyperlipidemia CAD -Continue Lipitor 40 mg nightly, Plavix 75 mg daily, irbesartan 37.5 mg daily, metoprolol succinate 50 mg daily. GERD: Continue pantoprazole 40 mg nightly Myopericarditis NSTEMI - concern for myopericarditis in the setting of flu. Trivial pericardial effusion on echo. Continue colchicine and ibuprofen. -Preliminary echo with EF 50 to 55% - Continue Lasix 40 mg twice daily. -Discussed case with cardiology, treatment as above. Monitor for improvement. Will need close follow-up and evaluation for ischemic workup as an outpatient. Depression: Continue citalopram 40 mg daily Full code Regular diet DVT PPx - lovenox
[2023-04-21] VITALS (10 sets, daily range): BP systolic 115–135; BP diastolic 44–80; PULSE 75–103; RESP 18–24; TEMP 36.6–36.8; O2SAT 90–98; BMI 32.5
[2023-04-21] MEDS: IPRATROPIUM/ALBUTEROL 3 ML NEB IH ×5 (01:57→22:47)
[2023-04-21] MEDS: IBUPROFEN 400 MG TABLET PO ×3 (04:55→21:35)
--- NOTE | 2023-04-21 05:13 | PC.NURSE ---
Pt is alert and oriented. On 5L NC, O2 sat >90%. Lung sounds wheezing inspiratory and expiratory. Pt has been using the bedside commode, 2 episodes of diarrhea this shift. Pt RAC IV pulled out, LAC in place. Pt has had no complaints other than previous provider notification documentation. Pt has rested intermittently throughout shift. Call light in reach.
[2023-04-21] MEDS: BUDESONIDE 0.5MG/2ML NEB 0.5 MG IH ×2 (06:34→18:10)
[2023-04-21 07:18] LABS: Basophils % 0.3 % (0.1-2.0); Hematocrit 25.6 % (37.0-47.0); Hemoglobin 7.6 g/dL (12.2-16.2); Lymphocytes % 13.6 % (10-50); Mean Corpuscular HGB Conc 29.8 g/dL (31.8-35.4); Mean Corpuscular Hemoglobin 24.4 pg (27.0-31.2); Mean Corpuscular Volume 81.9 fl (81-99); Mean Platelet Volume 8.4 fl (7.4-10.4); Monocytes # 0.4 K/mm3 (0.1-1.0); Monocytes % 6.1 % (1.7-9.3); Neutrophils # 5.7 K/mm3 (1.8-7.8); Platelet Count 321 K/mm3 (142-424); Red Blood Count 3.12 M/mm3 (4.20-5.40); Red Cell Distribution Width 18.9 % (11.5-17.5); White Blood Count 7.1 K/mm3 (4.8-10.8)
[2023-04-21 07:30] LABS: Alanine Aminotransferase 30 U/L (12-78); Albumin Level 3.3 g/dl (3.5-5.0); Alkaline Phosphatase 143 U/L (38-126); Aspartate Amino Transferase 41 U/L (14-36); Bilirubin,Total 0.3 mg/dl (0.2-1.3); Blood Urea Nitrogen 29 mg/dl (7-17); Calcium 8.3 mg/dl (8.4-10.2); Carbon Dioxide 36 mmol/L (22.0-30.0); Chloride 101 mmol/L (98-107); Creatinine Clearance Estimated 46 mL/min (50-200); Estimated Glomerular Filt Rate 48 ml/min (>60); GFR (African American) 58 ML/MIN (>60); Globulin 3.3 g/dL (1.3-3.2); Glucose 119 mg/dl (74-100); Sodium 142 mmol/L (136-145); Total Protein,Serum 6.6 g/dl (6.3-8.2)
--- NOTE | 2023-04-21 07:48 | EXP.PHA.PN ---
Subjective *Date: 04/21/23 *Time: 07:48 Medical Exam Vital signs and Labs for Last 24 Hours: Vital Signs Temp Pulse Pulse Resp BP Pulse Ox O2 Del Method 04/21/23 06:48 Nasal Cannula 04/21/23 06:34 86 04/21/23 06:34 86 04/21/23 06:34 97 Nasal Cannula 04/21/23 05:00 Nasal Cannula 04/21/23 04:00 98.1 F 98 H 18 115/69 95 Room Air 04/21/23 04:00 100 H 04/21/23 03:00 Nasal Cannula 04/21/23 01:00 Nasal Cannula 04/21/23 00:00 100 H 04/21/23 00:00 98.1 F 103 H 18 123/46 L 98 Nasal Cannula 04/20/23 23:00 Nasal Cannula 04/20/23 22:19 86 04/20/23 22:19 86 04/20/23 21:00 Nasal Cannula 04/20/23 20:00 Nasal Cannula 04/20/23 20:00 97.9 F 108 H 17 124/54 L 92 L Nasal Cannula 04/20/23 18:51 78 04/20/23 18:51 78 04/20/23 18:51 91 L Nasal Cannula 04/20/23 17:57 Nasal Cannula 04/20/23 17:00 Nasal Cannula 04/20/23 15:56 98.3 F 99 H 20 142/56 H 91 L Nasal Cannula 04/20/23 15:00 Nasal Cannula 04/20/23 14:10 79 04/20/23 14:10 77 04/20/23 12:50 Nasal Cannula 04/20/23 12:00 105 H 04/20/23 11:14 98.1 F 85 25 H 130/50 L 95 Room Air 04/20/23 11:00 Nasal Cannula 04/20/23 08:00 101 H 04/20/23 08:00 91 L Nasal Cannula 04/20/23 07:55 Nasal Cannula 04/20/23 07:51 98.5 F 98 H 30 H 152/55 H 94 L Nasal Cannula O2 Flow Rate 04/21/23 06:48 5 04/21/23 06:34 04/21/23 06:34 04/21/23 06:34 4 04/21/23 05:00 5 04/21/23 04:00 04/21/23 04:00 04/21/23 03:00 5 04/21/23 01:00 5 04/21/23 00:00 04/21/23 00:00 04/20/23 23:00 5 04/20/23 22:19 04/20/23 22:19 04/20/23 21:00 5 04/20/23 20:00 5 04/20/23 20:00 04/20/23 18:51 04/20/23 18:51 04/20/23 18:51 5 04/20/23 17:57 5 04/20/23 17:00 5 04/20/23 15:56 5 04/20/23 15:00 5 04/20/23 14:10 04/20/23 14:10 04/20/23 12:50 5 04/20/23 12:00 04/20/23 11:14 04/20/23 11:00 5 04/20/23 08:00 04/20/23 08:00 5 04/20/23 07:55 6 04/20/23 07:51 6 Intake and Output 04/20/23 04/20/23 04/21/23 15:59 23:59 07:59 Intake Total 270 / 850 240 / 850 Output Total 0 / 0 350 / 350 Balance 270 / 850 240 / 850 -350 / -350 Intake: Intake, Oral Amount 270 / 850 240 / 850 Output: Output, Urine Amount 0 / 0 350 / 350 Other: Number of Unmeasured Voids 1 1 Number of Bowel Movements 1 3 Weight 73.255 kg Patient Weight 04/21/23 23:59 Weight 73.255 kg Laboratory Results - last 24 hr 04/21/23 06:59: WBC 7.1 D, RBC 3.12 L, Hgb 7.6 L, Hct 25.6 L, MCV 81.9, MCH 24.4 L, MCHC 29.8 L, RDW 18.9 H, Plt Count 321, MPV 8.4, Neut % (Auto) 80.0, Lymph % (Auto) 13.6, [place] % (Auto) 6.1, Eos % (Auto) 0.0 L, Baso % (Auto) 0.3, Neut # (Auto) 5.7, Lymph # (Auto) 1.0, [place] # (Auto) 0.4, Eos # (Auto) 0.0, Baso # (Auto) 0.0 I & O for Labs for Last 24 Hours: Intake & Output 04/18/23 04/19/23 04/20/23 04/21/23 23:59 23:59 23:59 23:59 Intake Total 780 / 780 630 / 730 850 / 850 Output Total 0 / 0 1200 / 1200 0 / 0 350 / 350 Balance 780 / 780 -570 / -470 850 / 850 -350 / -350 Weight 78.557 kg 78.5 kg 73.255 kg Microbiology Reports for the Last 24 Hours: Microbiology 04/18/23 05:30 Sputum - Expectorated Sputum Gram Stain - Final 04/18/23 05:30 Sputum - Expectorated Sputum Sputum Culture - Preliminary 04/18/23 05:32 Blood Blood Culture - Preliminary 04/18/23 05:55 Blood Blood Culture - Preliminary The patient's infection will respond to the chosen ABx?: Yes Is the patient receiving the right drug, dose, and route?: Yes Could a more targeted ABx be ordered?: No (WBC IMPROVED, AFEBRILE, BLD CX (-) X2)
[2023-04-21 07:49] LABS: Magnesium 2.1 mg/dl (1.6-2.3)
--- NOTE | 2023-04-21 07:53 | P.PN_ITS ---
Subjective *Date: 04/21/23 *Time: 16:24 Interval history: Continues to feel weak and sick presenting. CT reviewed from yesterday with patchy bilateral pneumonia. He is continues to require 5 L nasal cannula oxygen. Cardiology neurology assisting with care. Afebrile overnight. No nausea or vomiting. Tolerating p.o. intake. Medical Exam Vital signs and Labs for Last 24 Hours: Vital Signs Temp Pulse Pulse Resp BP Pulse Ox O2 Del Method 04/21/23 06:48 Nasal Cannula 04/21/23 06:34 86 04/21/23 06:34 86 04/21/23 06:34 97 Nasal Cannula 04/21/23 05:00 Nasal Cannula 04/21/23 04:00 98.1 F 98 H 18 115/69 95 Room Air 04/21/23 04:00 100 H 04/21/23 03:00 Nasal Cannula 04/21/23 01:00 Nasal Cannula 04/21/23 00:00 100 H 04/21/23 00:00 98.1 F 103 H 18 123/46 L 98 Nasal Cannula 04/20/23 23:00 Nasal Cannula 04/20/23 22:19 86 04/20/23 22:19 86 04/20/23 21:00 Nasal Cannula 04/20/23 20:00 Nasal Cannula 04/20/23 20:00 97.9 F 108 H 17 124/54 L 92 L Nasal Cannula 04/20/23 18:51 78 04/20/23 18:51 78 04/20/23 18:51 91 L Nasal Cannula 04/20/23 17:57 Nasal Cannula 04/20/23 17:00 Nasal Cannula 04/20/23 15:56 98.3 F 99 H 20 142/56 H 91 L Nasal Cannula 04/20/23 15:00 Nasal Cannula 04/20/23 14:10 79 04/20/23 14:10 77 04/20/23 12:50 Nasal Cannula 04/20/23 12:00 105 H 04/20/23 11:14 98.1 F 85 25 H 130/50 L 95 Room Air 04/20/23 11:00 Nasal Cannula 04/20/23 08:00 101 H 04/20/23 08:00 91 L Nasal Cannula 04/20/23 07:55 Nasal Cannula O2 Flow Rate 04/21/23 06:48 5 04/21/23 06:34 04/21/23 06:34 04/21/23 06:34 4 04/21/23 05:00 5 04/21/23 04:00 04/21/23 04:00 04/21/23 03:00 5 04/21/23 01:00 5 04/21/23 00:00 04/21/23 00:00 04/20/23 23:00 5 04/20/23 22:19 04/20/23 22:19 04/20/23 21:00 5 04/20/23 20:00 5 04/20/23 20:00 04/20/23 18:51 04/20/23 18:51 04/20/23 18:51 5 04/20/23 17:57 5 04/20/23 17:00 5 04/20/23 15:56 5 04/20/23 15:00 5 04/20/23 14:10 04/20/23 14:10 04/20/23 12:50 5 04/20/23 12:00 04/20/23 11:14 04/20/23 11:00 5 04/20/23 08:00 04/20/23 08:00 5 04/20/23 07:55 6 Intake and Output 04/20/23 04/20/23 04/21/23 15:59 23:59 07:59 Intake Total 270 / 850 240 / 850 Output Total 0 / 0 350 / 350 Balance 270 / 850 240 / 850 -350 / -350 Intake: Intake, Oral Amount 270 / 850 240 / 850 Output: Output, Urine Amount 0 / 0 350 / 350 Other: Number of Unmeasured Voids 1 1 Number of Bowel Movements 1 3 Weight 73.255 kg Patient Weight 04/21/23 23:59 Weight 73.255 kg Laboratory Results - last 24 hr 04/21/23 06:59: WBC 7.1 D, RBC 3.12 L, Hgb 7.6 L, Hct 25.6 L, MCV 81.9, MCH 24.4 L, MCHC 29.8 L, RDW 18.9 H, Plt Count 321, MPV 8.4, Neut % (Auto) 80.0, Lymph % (Auto) 13.6, [place] % (Auto) 6.1, Eos % (Auto) 0.0 L, Baso % (Auto) 0.3, Neut # (Auto) 5.7, Lymph # (Auto) 1.0, [place] # (Auto) 0.4, Eos # (Auto) 0.0, Baso # (Auto) 0.0 I & O for Labs for Last 24 Hours: Intake & Output 04/18/23 04/19/23 04/20/23 04/21/23 23:59 23:59 23:59 23:59 Intake Total 780 / 780 630 / 730 850 / 850 Output Total 0 / 0 1200 / 1200 0 / 0 350 / 350 Balance 780 / 780 -570 / -470 850 / 850 -350 / -350 Weight 78.557 kg 78.5 kg 73.255 kg Microbiology Reports for the Last 24 Hours: Microbiology 04/18/23 05:30 Sputum - Expectorated Sputum Gram Stain - Final 04/18/23 05:30 Sputum - Expectorated Sputum Sputum Culture - Preliminary 04/18/23 05:32 Blood Blood Culture - Preliminary 04/18/23 05:55 Blood Blood Culture - Preliminary Constitutional: Present mild distress, obese and chronically ill appearing Comment:: ill appearing Head: Present atraumatic and normocephalic ENT: Present normal exam Neck: Present normal inspection Respiratory: Present rhonchi, wheezes and normal respiratory effort; Absent crackles Cardiac: Present Reg Rate and Rhythm GI: Present soft and normal bowel sounds; Absent distention or tenderness (female): Present deferred Extremities: Present normal inspection and full ROM Skin: Present intact; Absent erythema Neuro: Present Grossly Intact, alert, awake, oriented x 3 and moves all extremities Assessment and Plan *Assessment and plan (1) Influenza A with pneumonia: Status: Acute Category: Medical Code(s): J09.X1 - Influenza due to identified novel influenza A virus with pneumonia (2) Sepsis: Status: Acute Qualifiers: Acute respiratory failure type: with hypoxia Sepsis acute organ d ysfunction status: with acute organ dysfunction Sepsis type: sepsis due to unspecified organism Severe sepsis acute organ dysfunction type: acute respiratory failure Severe sepsis shock status: without septic shock Qualified Code(s): A41.9 - Sepsis, unspecified organism; R65.20 - Severe sepsis without septic shock; J96.01 - Acute respiratory failure with hypoxia Category: Medical Code(s): A41.9 - Sepsis, unspecified organism (3) Acute exacerbation of chronic obstructive pulmonary disease: Status: Acute Category: Medical Code(s): J44.1 - Chronic obstructive pulmonary disease with (acute) exacerbation (4) Heart failure with improved ejection fraction (HFimpEF): Status: Acute Category: Medical Code(s): I50.32 - Chronic diastolic (congestive) heart failure (5) Restrictive lung disease: Status: Chronic Category: Medical Code(s): J98.4 - Other disorders of lung (6) CAD (coronary artery disease): Status: Chronic Qualifiers: Coronary Disease-Associated Artery/Lesion type: [place] artery [place] vs. transplanted heart: [place] heart Associated angina: with stable angina Qualified Code(s): I25.118 - Atherosclerotic heart disease of [place] coronary artery with other forms of angina pectoris Category: Medical Code(s): I25.10 - Atherosclerotic heart disease of [place] coronary artery without angina pectoris (7) HTN (hypertension): Status: Chronic Qualifiers: Hypertension type: essential hypertension Qualified Code(s): I10 - Essential (primary) hypertension Category: Medical Code(s): I10 - Essential (primary) hypertension Plan Admitted because she was on BiPAP I patient is a 82-year-old female with past medical history of heart failure with preserved ejection fraction CAD s/p AICD, hypertension asthma who presents to the hospital due to chest pain shortness of breath. According to the patient she had chest pain with shortness of breath. She also felt warm chills as well as he had sick contacts around her. Patient was requiring BiPAP and was admitted for further evaluation. Weaned from BiPAP. No significant change from yesterday, continues to require inpatient management. Pulmonology and cardiology assisting with care. Problems addressed as follows: Acute hypoxemic respiratory failure Influenza A with pneumonia - Discussed case with pulmonology, continue Tamiflu for 10 days. Continue levofloxacin for 5 days. Recommend continuing DuoNebs every 4 hours and Pulmicort every 12 hours. - Goal saturation greater than 90%, continue supplemental oxygen. Currently 5 L. -White cell count normal at 7. Repeat CBC, CMP, magnesium ordered for the morning. Hypertension Hyperlipidemia CAD -Continue Lipitor 40 mg nightly, Plavix 75 mg daily, irbesartan 37.5 mg daily, metoprolol succinate 50 mg daily. GERD: Continue pantoprazole 40 mg nightly Myopericarditis NSTEMI - concern for myopericarditis in the setting of flu. Trivial pericardial effusion on echo. Repeat echo showing slight increase in size. No tamponade at this time however. Continue colchicine and ibuprofen. -Preliminary echo with EF 50 to 55% - Continue Lasix 40 mg twice daily. -Discussed case with cardiology, treatment as above. Monitor for improvement. Will need close follow-up and evaluation for ischemic workup as an outpatient. Depression: Continue citalopram 40 mg daily Full code Regular diet DVT PPx - lovenox
[2023-04-21] MEDS: ENOXAPARIN 40MG/0.4ML SYRINGE 40 MG SQ (08:21)
[2023-04-21] MEDS: IRBESARTAN 75MG TABLET 37.5 MG PO (08:22)
[2023-04-21] MEDS: METOPROLOL SUCCINATE XL 50MG TABLET 50 MG PO (08:22)
[2023-04-21] MEDS: FUROSEMIDE 40MG/4ML VIAL 40 MG IV (08:22)
[2023-04-21] MEDS: COLCHICINE 0.6MG TABLET 0.599999999999999978 MG PO ×2 (08:22→21:35)
[2023-04-21] MEDS: predniSONE 20MG TAB 40 MG PO (08:22)
[2023-04-21] MEDS: POTASSIUM CHLORIDE 20MEQ TAB 40 MEQ PO ×2 (08:22→21:35)
[2023-04-21] MEDS: CLOPIDOGREL 75MG TAB 75 MG PO (08:22)
[2023-04-21] MEDS: CITALOPRAM 40MG TABLET 40 MG PO (08:22)
[2023-04-21] MEDS: OSELTAMIVIR 75MG CAPSULE 75 MG PO ×2 (08:22→21:35)
--- NOTE | 2023-04-21 09:58 | EXP.PULM.PN ---
Subjective *Date: 04/21/23 *Time: 12:24 Interval history: No acute respiratory vents overnight. Patient admits improved respiratory symptoms compared to yesterday. Pulmonology Exam Inpatient Vital signs and Labs for Last 24 Hours: Temp Pulse Resp BP Pulse Ox O2 Del Method O2 Flow Rate 98.2 F 97 H 24 132/56 L 92 L Nasal Cannula 4 04/21/23 08:00 04/21/23 08:00 04/21/23 08:00 04/21/23 08:00 04/21/23 08:00 04/21/23 08:00 04/21/23 08:00 FiO2 40 04/20/23 00:53 Laboratory Results - last 24 hr 04/21/23 06:59: WBC 7.1 D, RBC 3.12 L, Hgb 7.6 L, Hct 25.6 L, MCV 81.9, MCH 24.4 L, MCHC 29.8 L, RDW 18.9 H, Plt Count 321, MPV 8.4, Neut % (Auto) 80.0, Lymph % (Auto) 13.6, [place] % (Auto) 6.1, Eos % (Auto) 0.0 L, Baso % (Auto) 0.3, Neut # (Auto) 5.7, Lymph # (Auto) 1.0, [place] # (Auto) 0.4, Eos # (Auto) 0.0, Baso # (Auto) 0.0, Sodium 142, Potassium 3.0 L D, Chloride 101, Carbon Dioxide 36 H, Anion Gap 8.0, BUN 29 H, Creatinine 1.10 H, Estimated Creat Clear 46, Estimated GFR 48 L, Est GFR ( Amer) 58 L, Glucose 119 H, Calcium 8.3 L, Magnesium 2.1 D, Total Bilirubin 0.3, AST 41 H D, ALT 30, Alkaline Phosphatase 143 H, Total Protein 6.6, Albumin 3.3 L, Globulin 3.3 H, Albumin/Globulin Ratio 1.0 L I & O for Labs for Last 24 Hours: Intake & Output 04/18/23 04/19/23 04/20/23 04/21/23 23:59 23:59 23:59 23:59 Intake Total 780 / 780 630 / 730 850 / 850 360 / 360 Output Total 0 / 0 1200 / 1200 0 / 0 350 / 350 Balance 780 / 780 -570 / -470 850 / 850 10 Weight 173 lb 3 oz 173 lb 1.006 oz 161 lb 8 oz Microbiology Reports for the Last 24 Hours: Microbiology 04/18/23 05:30 Sputum - Expectorated Sputum Gram Stain - Final 04/18/23 05:30 Sputum - Expectorated Sputum Sputum Culture - Preliminary 04/18/23 05:32 Blood Blood Culture - Preliminary 04/18/23 05:55 Blood Blood Culture - Preliminary Constitutional: Present moderate distress Head: Present normocephalic and atraumatic ENT: Present normal exam, normal oropharynx and mucous membranes moist Neck: Present normal inspection and full ROM Respiratory: Present prolonged expiratory phase, respiratory distress, wheezes and able to speak in complete sentences Cardiac: Present S1/S2, Tachycardia and radial pulses present GI: Present soft and distention; Absent tenderness or guarding Rectal (female): Present deferred (female): Present deferred Skin: Present intact; Absent cyanosis or jaundice Neuro: Present alert, awake and oriented x 3 Extremities: Present normal inspection and edema; Absent clubbing or cyanosis Psychiatric: Present normal affect and cooperative Assessment and Plan *Assessment and plan (1) Influenza A with pneumonia: Status: Acute Category: Medical Code(s): J09.X1 - Influenza due to identified novel influenza A virus with pneumonia (2) Sepsis: Status: Acute Qualifiers: Acute respiratory failure type: with hypoxia Sepsis acute organ dysfunction status: with acute organ dysfunction Sepsis type: sepsis due to unspecified organism Severe sepsis acute organ dysfunction type: acute respiratory failure Severe sepsis shock status: without septic shock Qualified Code(s): A41.9 - Sepsis, unspecified organism; R65.20 - Severe sepsis without septic shock; J96.01 - Acute respiratory failure with hypoxia Category: Medical Code(s): A41.9 - Sepsis, unspecified organism (3) Acute exacerbation of chronic obstructive pulmonary disease: Status: Acute Category: Medical Code(s): J44.1 - Chronic obstructive pulmonary disease with (acute) exacerbation (4) Restrictive lung disease: Status: Chronic Category: Medical Code(s): J98.4 - Other disorders of lung (5) Pneumonia: Status: Acute Qualifiers: Laterality: unspecified laterality Lung location: unspecified part of lung Pneumonia type: due to unspecified organism Qualified Code(s): J18.9 - Pneumonia, unspecified organism Category: Medical Code(s): J18.9 - Pneumonia, unspecified organism Plan Ms. Hinojosa is a 82-year-old female with reported to have heart failure preserved EF, hypertension and asthma presented with worsening chest discomfort and respiratory distress and pulmonary was called for further evaluation and management. Neutrophilic predominant leukocytosis upon admission. Chest x-ray concerning right lower lobe infiltrate. Flu PCR resulted positive. Patient on admission was initiated on Tamiflu ceftriaxone azithromycin. She was also initiated on BiPAP. VBG did not show any evidence of hypercarbic respiratory failure. Chest x-ray from 04/20/[address] chest from the same day consistent with x-ray showing bilateral groundglass opacities. Interval update: No acute respiratory events overnight. Improving respiratory status and is stable continue to show wheezing though improved from yesterday. Continue current treatment including nebs every 4 hours along with steroids and Tamiflu. Plan: Continue Tamiflu x 10 days Continue levofloxacin x 5 days Change inhalers to DuoNebs every 4 hours and Pulmicort every 12 scheduled Prednisone 40 mg daily x 5 days Continue oxygen supplementation to maintain O2 saturation goal of 90 to 95%. # Thank you for involving pulmonary in this patient care. Will continue to follow.
--- NOTE | 2023-04-21 11:47 | P.PN_ITS ---
Subjective Subjective Date: 04/21/23 Time: 08:30 Principal diagnosis: influenza, CHF, elevated troponin Interval history: The patient states that she is still very short of breath. She states anytime she exerts herself she has severe shortness of breath. Still has her associated cough but this is nonproductive. She denies any chest pain or pressure. She states her lower extremity edema has resolved. She denies any fever, chills, nausea, vomiting, PND or orthopnea. Exam Data for Last 24 hours Vital signs and Labs for Last 24 Hours: Temp Pulse Resp BP Pulse Ox O2 Del Method O2 Flow Rate 98.2 F 88 24 132/56 L 97 Nasal Cannula 5 04/21/23 08:00 04/21/23 10:55 04/21/23 08:00 04/21/23 08:00 04/21/23 08:00 04/21/23 11:00 04/21/23 11:00 FiO2 40 04/20/23 00:53 Laboratory Results - last 24 hr 04/21/23 06:59: WBC 7.1 D, RBC 3.12 L, Hgb 7.6 L, Hct 25.6 L, MCV 81.9, MCH 24.4 L, MCHC 29.8 L, RDW 18.9 H, Plt Count 321, MPV 8.4, Neut % (Auto) 80.0, Lymph % (Auto) 13.6, [place] % (Auto) 6.1, Eos % (Auto) 0.0 L, Baso % (Auto) 0.3, Neut # (Auto) 5.7, Lymph # (Auto) 1.0, [place] # (Auto) 0.4, Eos # (Auto) 0.0, Baso # (Auto) 0.0, Sodium 142, Potassium 3.0 L D, Chloride 101, Carbon Dioxide 36 H, Anion Gap 8.0, BUN 29 H, Creatinine 1.10 H, Estimated Creat Clear 46, Estimated GFR 48 L, Est GFR ( Amer) 58 L, Glucose 119 H, Calcium 8.3 L, Magnesium 2.1 D, Total Bilirubin 0.3, AST 41 H D, ALT 30, Alkaline Phosphatase 143 H, Total Protein 6.6, Albumin 3.3 L, Globulin 3.3 H, Albumin/Globulin Ratio 1.0 L I & O for Last 24 hours: Intake & Output 04/18/23 04/19/23 04/20/23 04/21/23 23:59 23:59 23:59 23:59 Intake Total 780 / 780 630 / 730 850 / 850 360 / 360 Output Total 0 / 0 1200 / 1200 0 / 0 350 / 350 Balance 780 / 780 -570 / -470 850 / 850 10 / 10 Weight 173 lb 3 oz 173 lb 1.006 oz 161 lb 8 oz Microbiology Reports for the Last 24 Hours: Microbiology 04/18/23 05:30 Sputum - Expectorated Sputum Gram Stain - Final 04/18/23 05:30 Sputum - Expectorated Sputum Sputum Culture - Preliminary 04/18/23 05:32 Blood Blood Culture - Preliminary 04/18/23 05:55 Blood Blood Culture - Preliminary Constitutional Constitutional: no acute distress and obese *Routine HEENT Exam Head: Present normocephalic and atraumatic ENT: Present mucous membranes moist *Routine Neck Exam Neck: Present supple, full ROM and normal carotid upstroke; Absent JVD, carotid bruit or lymphadenopathy *Routine Respiratory Exam Respiratory: Present wheezes *Routine Cardiovascular Exam Cardiovascular: Present RRR, Normal S1 and Normal S2; Absent murmur or gallop *Routine Abdominal Exam Abdominal: Present soft and normoactive bowel sounds; Absent tenderness, dist ended or organomegaly *Routine Extremities Exam Extremities: Present full ROM, pulses intact and normal capillary refill; Absent cyanosis, clubbing or edema *Routine Skin Exam Skin: Present intact and warm; Absent erythema *Routine Neurological Exam Neurological: Present alert, oriented X3 and CN II-XII intact; Absent sensory deficit or motor deficit Routine Psychiatric Exam Psychiatric: Present normal affect Progress Note: A&P Assessment and plan (1) Influenza A with pneumonia: Status: Acute (2) Sepsis: Status: Acute (3) Acute exacerbation of chronic obstructive pulmonary disease: Status: Acute (4) Restrictive lung disease: Status: Chronic (5) Pneumonia: Status: Acute (6) HLD (hyperlipidemia): Status: Acute (7) Myopericarditis: Status: Acute (8) Elevated troponin: Status: Acute (9) CAD (coronary artery disease): Status: Chronic (10) HTN (hypertension): Status: Chronic (11) AICD (automatic cardioverter/defibrillator) present: Status: Chronic Assessment and Plan Assessment and Plan for All Diagnoses:: Plan: 1. The patient was admitted to the hospital with influenza pneumonia and sepsis. She does have influenza A. She is being treated with Tamiflu. She is also being followed by pulmonology. Will defer. 2. The patient does have an acute exacerbation of CHF. Her ejection fraction is around 50 to 55% on echocardiogram this admission. The patient's lower extremity edema has resolved and her chest pain has resolved. Will stop IV Lasix and switch her over to oral Lasix 80 mg p.o. daily. 3. The patient is currently being treated for myopericarditis with colchicine and ibuprofen. This is most likely the cause of her type II non-STEMI. 4. Her repeat limited echocardiogram yesterday did show slightly worsening in her pericardial effusion. Will repeat her limited echocardiogram in the morning to make sure the pericardial effusion does not continue to worsen. Continue colchicine and ibuprofen. 5. CT of the chest showed multifocal pneumonia. Will defer management of this to pulmonology. 6. The patient does have known coronary artery disease which is likely stable. No plans for invasive left cardiac catheterization at this time 7. Her blood pressure is well-controlled. 8. Her LDL goal is less than 55. LDL is 34. On a statin. 9. Continue irbesartan and metoprolol. 10. AICD in place and followed in outpatient cardiology clinic. 11. Further recommendations will be made pending the patient's response to treatment. Thank you for the opportunity to help participate in the care of this patient. All recommendations and orders are per Dr. Villeda.
[2023-04-21] MEDS: levoFLOXacin 750 MG TABLET PO (12:01)
[2023-04-21] MEDS: NYSTATIN SUSP 500,000 UNITS/5ML UDC 500000 UNIT PO ×2 (16:57→21:35)
[2023-04-21] MEDS: ATORVASTATIN 40MG TABLET 40 MG PO (21:35)
[2023-04-21] MEDS: PANTOPRAZOLE 40MG TABLET 40 MG PO (21:35)
[2023-04-21] MEDS: PRAMIPEXOLE 1MG TAB 2 MG PO (21:39)
[2023-04-22] VITALS (24 sets, daily range): BP systolic 117–142; BP diastolic 48–94; PULSE 77–112; RESP 18–24; TEMP 36.6–37.2; O2SAT 90–97; BMI 32.6
[2023-04-22] MEDS: IPRATROPIUM/ALBUTEROL 3 ML NEB IH ×6 (02:02→22:27)
[2023-04-22] MEDS: IBUPROFEN 400 MG TABLET PO (05:59)
--- NOTE | 2023-04-22 06:00 | CA_ITS ---
APPROVED REPORT EXAM: Limited 2D Echocardiogram Renal Dialysis Rn: Allison Abreu CRT Ht: 4 ft 11 in Wt: 161lbs BSA: 1.68 BP: 132/56 mmHg Indications: REASSESS EFFUSION CHECK, SOB, FLU, AICD, EXSMOKER, HTN,HLD, COPD, EDEMA, 2D Dimensions Left Atrium 3.80 cm LVEF ([facility]) 54.10 % LVOT 1.53 cm (M/F) 1.5-2.5 LV Volume 79.80 mL EF AP4 57.70 % EF AP2 44.3 % EF BP 54.1 % GL Strain -9.4 % M-Mode Dimensions RVDd 2.70 cm (0.9-2.6) LVDd 5.24 cm (3.5-5.7) Ao Diam 3.62 cm (2.0-3.7) LVDs 4.01 cm (3.5-5.7) IVSd 1.40 cm (0.6-1.1) PWd 0.98 cm (0.6-1.1) EF (Teich) 46.60% FS 23.50% EDV (Teich) 131.80 mL ESV (Teich) 70.40 mL Other Information Study Quality: Technically Difficult Conclusion This is a limited TTE to evaluate for pericardial effusion. Limited windows were obtained. Technically difficult study. There is a small sized, anterior and anteroapical pericardial effusion present. The largest pocket measures 0.6 cm in diastole. There is no significant transvalvular respirophasic variation. No evidence of chamber collapse. The IVC is normal in size and collapsibility. Overall, no echo indications of tamponade. Compared to prior study from 04/20/2023, no significant changes noted. Electronically signed by : Arielle Villeda MD 04/22/2023 09:52:14
[2023-04-22] MEDS: BUDESONIDE 0.5MG/2ML NEB 0.5 MG IH ×2 (06:33→18:46)
--- NOTE | 2023-04-22 06:44 | PC.NURSE ---
c/o thrush in mouth - tx per apr and gave ice chips to help cool the burn . unable to wean off 5L NC.
[2023-04-22 06:54] LABS: Basophils % 0.2 % (0.1-2.0); Eosinophils # 0.1 K/mm3 (0.0-0.4); Eosinophils % 0.6 % (0.1-12.0); Hematocrit 24.8 % (37.0-47.0); Hemoglobin 7.5 g/dL (12.2-16.2); Lymphocytes # 1.1 K/mm3 (0.7-4.5); Lymphocytes % 12.9 % (10-50); Mean Corpuscular HGB Conc 30.3 g/dL (31.8-35.4); Mean Corpuscular Hemoglobin 24.6 pg (27.0-31.2); Mean Corpuscular Volume 81.1 fl (81-99); Monocytes # 0.5 K/mm3 (0.1-1.0); Monocytes % 6.3 % (1.7-9.3); Neutrophils # 6.6 K/mm3 (1.8-7.8); Neutrophils % 79.9 % (37.0-80.0); Platelet Count 371 K/mm3 (142-424); Red Blood Count 3.05 M/mm3 (4.20-5.40); Red Cell Distribution Width 18.5 % (11.5-17.5); White Blood Count 8.2 K/mm3 (4.8-10.8)
[2023-04-22 07:23] LABS: Alanine Aminotransferase 27 U/L (12-78); Albumin Level 3.3 g/dl (3.5-5.0); Alkaline Phosphatase 131 U/L (38-126); Anion Gap 7.4 mEq/L (5-15); Aspartate Amino Transferase 39 U/L (14-36); Bilirubin,Total 0.2 mg/dl (0.2-1.3); Blood Urea Nitrogen 35 mg/dl (7-17); Calcium 8.4 mg/dl (8.4-10.2); Carbon Dioxide 33 mmol/L (22.0-30.0); Chloride 104 mmol/L (98-107); Creatinine Clearance Estimated 43 mL/min (50-200); Estimated Glomerular Filt Rate 43 ml/min (>60); GFR (African American) 52 ML/MIN (>60); Globulin 3.2 g/dL (1.3-3.2); Glucose 117 mg/dl (74-100); Potassium 3.4 mmoL/L (3.5-5.1); Sodium 141 mmol/L (136-145); Total Protein,Serum 6.5 g/dl (6.3-8.2)
[2023-04-22 07:25] LABS: Magnesium 2.1 mg/dl (1.6-2.3)
[2023-04-22] MEDS: CITALOPRAM 40MG TABLET 40 MG PO (08:29)
[2023-04-22] MEDS: IRBESARTAN 75MG TABLET 37.5 MG PO (08:29)
[2023-04-22] MEDS: POTASSIUM CHLORIDE 20MEQ TAB 40 MEQ PO ×2 (08:29→23:55)
[2023-04-22] MEDS: FUROSEMIDE 80 MG TABLET PO (08:29)
[2023-04-22] MEDS: NYSTATIN SUSP 500,000 UNITS/5ML UDC 500000 UNIT PO ×4 (08:29→23:54)
[2023-04-22] MEDS: OSELTAMIVIR 75MG CAPSULE 75 MG PO ×2 (08:29→23:54)
[2023-04-22] MEDS: METOPROLOL SUCCINATE XL 50MG TABLET 50 MG PO (08:29)
[2023-04-22] MEDS: COLCHICINE 0.6MG TABLET 0.599999999999999978 MG PO ×2 (08:30→23:53)
[2023-04-22] MEDS: CLOPIDOGREL 75MG TAB 75 MG PO (08:30)
[2023-04-22] MEDS: predniSONE 20MG TAB 40 MG PO (08:30)
[2023-04-22] MEDS: ENOXAPARIN 40MG/0.4ML SYRINGE 40 MG SQ (08:30)
--- NOTE | 2023-04-22 09:28 | EXP.PULM.PN ---
Subjective *Date: 04/22/23 *Time: 12:16 Interval history: Patient denies any significant improvement in her respiratory distress. Pulmonology Exam Inpatient Vital signs and Labs for Last 24 Hours: Temp Pulse Resp BP Pulse Ox O2 Del Method O2 Flow Rate 98.3 F 112 H 20 136/50 L 96 Nasal Cannula 4 04/22/23 07:30 04/22/23 08:58 04/22/23 07:30 04/22/23 07:30 04/22/23 07:30 04/22/23 07:30 04/22/23 07:30 FiO2 40 04/20/23 00:53 Laboratory Results - last 24 hr 04/22/23 06:25: WBC 8.2, RBC 3.05 L, Hgb 7.5 L, Hct 24.8 L, MCV 81.1, MCH 24.6 L, MCHC 30.3 L, RDW 18.5 H, Plt Count 371, MPV 8.0, Neut % (Auto) 79.9, Lymph % (Auto) 12.9, [place] % (Auto) 6.3, Eos % (Auto) 0.6, Baso % (Auto) 0.2, Neut # (Auto) 6.6, Lymph # (Auto) 1.1, [place] # (Auto) 0.5, Eos # (Auto) 0.1, Baso # (Auto) 0.0, Sodium 141, Potassium 3.4 L, Chloride 104, Carbon Dioxide 33 H, Anion Gap 7.4, BUN 35 H, Creatinine 1.20 H, Estimated Creat Clear 43, Estimated GFR 43 L, Est GFR ( Amer) 52 L, Glucose 117 H, Calcium 8.4, Magnesium 2.1, Total Bilirubin 0.2, AST 39 H, ALT 27, Alkaline Phosphatase 131 H, Total Protein 6.5, Albumin 3.3 L, Globulin 3.2, Albumin/Globulin Ratio 1.0 L I & O for Labs for Last 24 Hours: Intake & Output 04/19/23 04/20/23 04/21/23 04/22/23 23:59 23:59 23:59 23:59 Intake Total 630 / 730 850 / 850 990 / 1230 600 / 600 Output Total 1200 / 1200 0 / 0 350 / 600 250 / 250 Balance -570 / -470 850 / 850 640 / 630 350 / 350 Weight 173 lb 1.006 oz 161 lb 8 oz 162 lb Microbiology Reports for the Last 24 Hours: Microbiology 04/18/23 05:30 Sputum - Expectorated Sputum Gram Stain - Final 04/18/23 05:30 Sputum - Expectorated Sputum Sputum Culture - Final 04/18/23 05:55 Blood Blood Culture - Preliminary 04/18/23 05:32 Blood Blood Culture - Preliminary Constitutional: Present moderate distress Head: Present normocephalic and atraumatic ENT: Present normal exam, normal oropharynx and mucous membranes moist Neck: Present normal inspection and full ROM Respiratory: Present prolonged expiratory phase, respiratory distress, wheezes and able to speak in complete sentences Cardiac: Present S1/S2, Tachycardia and radial pulses present GI: Present soft and distention; Absent tenderness or guarding Rectal (female): Present deferred (female): Present deferred Skin: Present intact; Absent cyanosis or jaundice Neuro: Present alert, awake and oriented x 3 Extremities: Present normal inspection and edema; Absent clubbing or cyanosis Psychiatric: Present normal affect and cooperative Assessment and Plan *Assessment and plan (1) Influenza A with pneumonia: Status: Acute Category: Medical Code(s): J09.X1 - Influenza due to identified novel influenza A virus with pneumonia (2) Sepsis: Status: Acute Qualifiers: Acute respiratory failure type: with hypoxia Sepsis acute organ dysfunction status: with acute organ dysfunction Sepsis type: sepsis due to unspecified organism Severe sepsis acute organ dysfunction type: acute respiratory failure Severe sepsis shock status: without septic shock Qualified Code(s): A41.9 - Sepsis, unspecified organism; R65.20 - Severe sepsis without septic shock; J96.01 - Acute respiratory failure with hypoxia Category: Medical Code(s): A41.9 - Sepsis, unspecified organism (3) Acute exacerbation of chronic obstructive pulmonary disease: Status: Acute Category: Medical Code(s): J44.1 - Chronic obstructive pulmonary disease with (acute) exacerbation (4) Restrictive lung disease: Status: Chronic Category: Medical Code(s): J98.4 - Other disorders of lung (5) Pneumonia: Status: Acute Qualifiers: Laterality: unspecified laterality Lung location: unspecified part of lung Pneumonia type: due to unspecified organism Qualified Code(s): J18.9 - Pneumonia, unspecified organism Category: Medical Code(s): J18.9 - Pneumonia, unspecified organism Plan Ms. Hinojosa is a 82-year-old female with reported to have heart failure preserved EF, hypertension and asthma presented with worsening chest discomfort and respiratory distress and pulmonary was called for further evaluation and management. Neutrophilic predominant leukocytosis upon admission. Chest x-ray concerning right lower lobe infiltrate. Flu PCR resulted positive. Patient on admission was initiated on Tamiflu ceftriaxone azithromycin. She was also initiated on BiPAP. VBG did not show any evidence of hypercarbic respiratory failure. Chest x-ray from 04/20/[address] chest from the same day consistent with x-ray showing bilateral groundglass opacities. Blood cultures from admission no growth. Sputum final results routine respiratory jj Interval update: Afebrile. Improving leukocytosis. Slight improvement in her oxygen requirement, saturating 96% on 4 L, weaned to 2 L. Closely monitor for improvement with respect to her oxygen needs and the patient did not show significant improvement and will consider obtaining a CT PE protocol in the next 24 hours. Plan: Continue oxygen supplementation to maintain O2 saturation goal of 90 to 95%. Weaned to 2L this morning Continue Tamiflu x 10 days Continue levofloxacin x 5 days DuoNebs every 4 hours and Pulmicort every 12 scheduled Prednisone 40 mg daily x 5 days # Thank you for involving pulmonary in this patient care. Will continue to follow.
--- NOTE | 2023-04-22 11:55 | P.PN_ITS ---
Subjective Subjective Date: 04/22/23 Time: 09:30 Principal diagnosis: influenza, CHF, elevated troponin Interval history: The patient states that she is still very short of breath and does not feel like she has had any improvement in her shortness of breath over the last several days. She still has an associated nonproductive cough. She denies any chest pain or pressure. She denies any lower extremity edema. She denies any fever, chills, nausea, vomiting, diarrhea, PND or orthopnea. Exam Data for Last 24 hours Vital signs and Labs for Last 24 Hours: Temp Pulse Resp BP Pulse Ox O2 Del Method O2 Flow Rate 98.9 F 101 H 20 117/66 97 Nasal Cannula 4 04/22/23 11:20 04/22/23 11:20 04/22/23 11:20 04/22/23 11:20 04/22/23 11:20 04/22/23 11:20 04/22/23 11:20 FiO2 40 04/20/23 00:53 Laboratory Results - last 24 hr 04/22/23 06:25: WBC 8.2, RBC 3.05 L, Hgb 7.5 L, Hct 24.8 L, MCV 81.1, MCH 24.6 L , MCHC 30.3 L, RDW 18.5 H, Plt Count 371, MPV 8.0, Neut % (Auto) 79.9, Lymph % (Auto) 12.9, [place] % (Auto) 6.3, Eos % (Auto) 0.6, Baso % (Auto) 0.2, Neut # (Auto) 6.6, Lymph # (Auto) 1.1, [place] # (Auto) 0.5, Eos # (Auto) 0.1, Baso # (Auto) 0.0, Sodium 141, Potassium 3.4 L, Chloride 104, Carbon Dioxide 33 H, Anion Gap 7.4, BUN 35 H, Creatinine 1.20 H, Estimated Creat Clear 43, Estimated GFR 43 L, Est GFR ( Amer) 52 L, Glucose 117 H, Calcium 8.4, Magnesium 2.1, Total Bilirubin 0.2, AST 39 H, ALT 27, Alkaline Phosphatase 131 H, Total Protein 6.5, Albumin 3.3 L, Globulin 3.2, Albumin/Globulin Ratio 1.0 L 04/22/23 11:19: Crossmatch (AHG) See Detail I & O for Last 24 hours: Intake & Output 04/19/23 04/20/23 04/21/23 04/22/23 23:59 23:59 23:59 23:59 Intake Total 630 / 730 850 / 850 990 / 1230 600 / 600 Output Total 1200 / 1200 0 / 0 350 / 600 250 / 250 Balance -570 / -470 850 / 850 640 / 630 350 / 350 Weight 173 lb 1.006 oz 161 lb 8 oz 162 lb Microbiology Reports for the Last 24 Hours: Microbiology 04/18/23 05:30 Sputum - Expectorated Sputum Gram Stain - Final 04/18/23 05:30 Sputum - Expectorated Sputum Sputum Culture - Final 04/18/23 05:55 Blood Blood Culture - Preliminary 04/18/23 05:32 Blood Blood Culture - Preliminary Constitutional Constitutional: no acute distress and obese *Routine HEENT Exam Head: Present normocephalic and atraumatic ENT: Present mucous membranes moist *Routine Neck Exam Neck: Present supple, full ROM and normal carotid upstroke; Absent JVD, carotid bruit or lymphadenopathy *Routine Respiratory Exam Respiratory: Present wheezes and normal respiratory effort *Routine Cardiovascular Exam Cardiovascular: Present RRR, Normal S1 and Normal S2; Absent murmur or gallop *Routine Abdominal Exam Abdominal: Present soft and normoactive bowel sounds; Absent tenderness, distended or organomegaly *Routine Extremities Exam Extremities: Present full ROM, pulses intact and normal capillary refill; Absent cyanosis, clubbing or edema *Routine Skin Exam Skin: Present intact and warm; Absent erythema *Routine Neurological Exam Neurological: Present alert, oriented X3 and CN II-XII intact; Absent sensory deficit or motor deficit Routine Psychiatric Exam Psychiatric: Present normal affect Progress Note: A&P Assessment and plan (1) Influenza A with pneumonia: Status: Acute (2) Sepsis: Status: Acute (3) Acute exacerbation of chronic obstructive pulmonary disease: Status: Acute (4) Restrictive lung disease: Status: Chronic (5) Pneumonia: Status: Acute (6) CAD (coronary artery disease): Status: Chronic (7) HTN (hypertension): Status: Chronic (8) AICD (automatic cardioverter/defibrillator) present: Status: Chronic (9) HLD (hyperlipidemia): Status: Acute (10) Myopericarditis: Status: Acute (11) Elevated troponin: Status: Acute Assessment and Plan Assessment and Plan for All Diagnoses:: Plan: 1. The patient was admitted to the hospital with influenza pneumonia and sepsis. She does have influenza A. She is being treated with Tamiflu. She is also being followed by pulmonology. Will defer. 2. The patient does have an acute exacerbation of CHF. Her ejection fraction is around 50 to 55% on echocardiogram this admission. Small pericardial effusion is still stable today. Continue colchicine 0.5 mg p.o. twice daily for three months. She has finished the course of ibuprofen. 3. The patient is currently being treated for myopericarditis with colchicine and ibuprofen. This is most likely the cause of her type II non-STEMI. 4. The patient does have known coronary artery disease which is likely stable. No plans for invasive left cardiac catheterization at this time 5. Her blood pressure is well-controlled. 6. Her LDL goal is less than 55. LDL is 34. On a statin. 7. Continue irbesartan and metoprolol. 8. Continue oral Lasix for acute exacerbation of chronic HFpEF. 9. AICD in place and followed in outpatient cardiology clinic. 10. No further recommendations at this time from a cardiac standpoint. If any other cardiac issues arise throughout the patient's hospitalization please feel free to contact cardiology again. At the time of discharge the patient will need to be discharged on the following cardiac medications: Lipitor 40 mg p.o. nightly, Plavix 75 mg daily, Lasix 80 mg p.o. daily, losartan 25 mg p.o. daily, Toprol XL 50 mg p.o. daily, colchicine 0.6 mg p.o. twice daily. Thank you for the opportunity to help participate in the care of this patient. All recommendations and orders are per Dr. Villeda.
--- NOTE | 2023-04-22 12:45 | EXP.ACUTE.PN ---
Subjective *Date: 04/22/23 *Time: 12:45 Interval history: Ms. Hinojosa still feels quite short of breath, wheezy on exam. Hemoglobin slowly trickling down, 7.5 today. Feels quite weak. Son at bedside. Patient scheduled to have outpatient iron infusions due to her iron deficient anemia. Tolerating p.o. intake. No nausea or vomiting. Afebrile overnight Medical Exam Vital signs and Labs for Last 24 Hours: Vital Signs Temp Pulse Pulse Resp BP Pulse Ox O2 Del Method 04/22/23 11:20 98.9 F 101 H 20 117/66 97 Nasal Cannula 04/22/23 11:05 Nasal Cannula 04/22/23 08:58 112 H 04/22/23 08:58 106 H 04/22/23 08:30 Nasal Cannula 04/22/23 08:30 Nasal Cannula 04/22/23 08:00 100 H 04/22/23 07:30 98.3 F 112 H 20 136/50 L 96 Nasal Cannula 04/22/23 06:34 Nasal Cannula 04/22/23 06:34 90 04/22/23 06:34 82 04/22/23 06:34 96 Nasal Cannula 04/22/23 05:00 Nasal Cannula 04/22/23 04:00 100 H 04/22/23 04:00 98 F 77 18 125/48 L 92 L Nasal Cannula 04/22/23 03:00 Nasal Cannula 04/22/23 01:00 Nasal Cannula 04/22/23 00:00 90 04/22/23 00:00 98.1 F 86 19 129/51 L 91 L Nasal Cannula 04/21/23 23:05 84 04/21/23 23:05 84 04/21/23 23:00 Nasal Cannula 04/21/23 21:00 Nasal Cannula 04/21/23 20:00 80 04/21/23 20:00 Nasal Cannula 04/21/23 20:00 98 F 82 18 116/44 L 95 Nasal Cannula 04/21/23 18:59 85 04/21/23 18:59 85 04/21/23 18:59 95 Nasal Cannula 04/21/23 18:09 Nasal Cannula 04/21/23 17:00 Room Air 04/21/23 16:00 98.3 F 82 22 120/50 L 94 L Room Air 04/21/23 16:00 75 04/21/23 16:00 Room Air 04/21/23 14:54 Nasal Cannula 04/21/23 13:00 Nasal Cannula O2 Flow Rate 04/22/23 11:20 4 04/22/23 11:05 4 04/22/23 08:58 04/22/23 08:58 04/22/23 08:30 4 04/22/23 08:30 4 04/22/23 08:00 04/22/23 07:30 4 04/22/23 06:34 5 04/22/23 06:34 04/22/23 06:34 04/22/23 06:34 4 04/22/23 05:00 5 04/22/23 04:00 04/22/23 04:00 04/22/23 03:00 5 04/22/23 01:00 5 04/22/23 00:00 04/22/23 00:00 04/21/23 23:05 04/21/23 23:05 04/21/23 23:00 5 04/21/23 21:00 5 04/21/23 20:00 04/21/23 20:00 5 04/21/23 20:00 04/21/23 18:59 04/21/23 18:59 04/21/23 18:59 5 04/21/23 18:09 5 04/21/23 17:00 04/21/23 16:00 04/21/23 16:00 04/21/23 16:00 04/21/23 14:54 5 04/21/23 13:00 5 Intake and Output 04/21/23 04/22/23 04/22/23 23:59 07:59 15:59 Intake Total 360 / 1230 240 / 600 360 / 600 Output Total 0 / 600 250 / 250 0 / 250 Balance 360 / 630 -10 / 350 360 / 350 Intake: Intake, Oral Amount 360 / 1230 240 / 600 360 / 600 Output: Output, Urine Amount 0 / 600 250 / 250 0 / 250 Other: Number of Unmeasured Voids 1 1 1 Number of Bowel Movements 1 2 1 Weight 73.482 kg Patient Weight 04/22/23 23:59 Weight 73.482 kg Laboratory Results - last 24 hr 04/22/23 06:25: WBC 8.2, RBC 3.05 L, Hgb 7.5 L, Hct 24.8 L, MCV 81.1, MCH 24.6 L, MCHC 30.3 L, RDW 18.5 H, Plt Count 371, MPV 8.0, Neut % (Auto) 79.9, Lymph % (Auto) 12.9, [place] % (Auto) 6.3, Eos % (Auto) 0.6, Baso % (Auto) 0.2, Neut # (Auto) 6.6, Lymph # (Auto) 1.1, [place] # (Auto) 0.5, Eos # (Auto) 0.1, Baso # (Auto) 0.0, Sodium 141, Potassium 3.4 L, Chloride 104, Carbon Dioxide 33 H, Anion Gap 7.4, BUN 35 H, Creatinine 1.20 H, Estimated Creat Clear 43, Estimated GFR 43 L, Est GFR ( Amer) 52 L, Glucose 117 H, Calcium 8.4, Magnesium 2.1, Total Bilirubin 0.2, AST 39 H, ALT 27, Alkaline Phosphatase 131 H, Total Protein 6.5, Albumin 3.3 L, Globulin 3.2, Albumin/Globulin Ratio 1.0 L 04/22/23 11:19: Crossmatch (AHG) See Detail I & O for Labs for Last 24 Hours: Intake & Output 04/19/23 04/20/23 04/21/23 04/22/23 23:59 23:59 23:59 23:59 Intake Total 630 / 730 850 / 850 990 / 1230 600 / 600 Output Total 1200 / 1200 0 / 0 350 / 600 250 / 250 Balance -570 / -470 850 / 850 640 / 630 350 / 350 Weight 78.5 kg 73.255 kg 73.482 kg Microbiology Reports for the Last 24 Hours: Microbiology 04/18/23 05:30 Sputum - Expectorated Sputum Gram Stain - Final 04/18/23 05:30 Sputum - Expectorated Sputum Sputum Culture - Final 04/18/23 05:55 Blood Blood Culture - Preliminary 04/18/23 05:32 Blood Blood Culture - Preliminary Constitutional: Present no acute distress, obese and chronically ill appearing Comment:: ill appearing Head: Present atraumatic and normocephalic ENT: Present normal exam Neck: Present normal inspection Respiratory: Present rhonchi, wheezes and normal respiratory effort; Absent crackles Cardiac: Present Reg Rate and Rhythm GI: Present soft and normal bowel sounds; Absent distention or tenderness (female): Present deferred Extremities: Present normal inspection and full ROM Skin: Present intact; Absent erythema Neuro: Present Grossly Intact, alert, awake, oriented x 3 and moves all extremities Assessment and Plan *Assessment and plan (1) Influenza A with pneumonia: Status: Acute Category: Medical Code(s): J09.X1 - Influenza due to identified novel influenza A virus with pneumonia (2) Sepsis: Status: Acute Qualifiers: Acute respiratory failure type: with hypoxia Sepsis acute organ dysfunction status: with acute organ dysfunction Sepsis type: sepsis due to unspecified organism Severe sepsis acute organ dysfunction type: acute respiratory failure Severe sepsis shock status: without septic shock Qualified Code(s): A41.9 - Sepsis, unspecified organism; R65.20 - Severe sepsis without septic shock; J96.01 - Acute respiratory failure with hypoxia Category: Medical Code(s): A41.9 - Sepsis, unspecified organism (3) Acute exacerbation of chronic obstructive pulmonary disease: Status: Acute Category: Medical Code(s): J44.1 - Chronic obstructive pulmonary disease with (acute) exacerbation (4) Heart failure with improved ejection fraction (HFimpEF): Status: Acute Category: Medical Code(s): I50.32 - Chronic diastolic (congestive) heart failure (5) Restrictive lung disease: Status: Chronic Category: Medical Code(s): J98.4 - Other disorders of lung (6) CAD (coronary artery disease): Status: Chronic Qualifiers: Coronary Disease-Associated Artery/Lesion type: [place] artery [place] vs. transplanted heart: [place] heart Associated angina: with stable angina Qualified Code(s): I25.118 - Atherosclerotic heart disease of [place] coronary artery with other forms of angina pectoris Category: Medical Code(s): I25.10 - Atherosclerotic heart disease of [place] coronary artery without angina pectoris (7) HTN (hypertension): Status: Chronic Qualifiers: Hypertension type: essential hypertension Qualified Code(s): I10 - Essential (primary) hypertension Category: Medical Code(s): I10 - Essential (primary) hypertension Plan Admitted because she was on BiPAP I patient is a 82-year-old female with past medical history of heart failure with preserved ejection fraction CAD s/p AICD, hypertension asthma who presents to the hospital due to chest pain shortness of breath. According to the patient she had chest pain with shortness of breath. She also felt warm chills as well as he had sick contacts around her. Patient was requiring BiPAP and was admitted for further evaluation. Weaned from BiPAP. No significant change from yesterday, continues to require inpatient management. Pulmonology and cardiology assisting with care. Problems addressed as follows: Acute hypoxemic respiratory failure Influenza A with pneumonia - Discussed case with pulmonology, continue Tamiflu for 10 days. Continue levofloxacin for 5 days. Recommend continuing DuoNebs every 4 hours and Pulmicort every 12 hours. - Goal saturation greater than 90%, continue supplemental oxygen. Currently 4 L. - White cell count normal at 8. Repeat CBC, CMP, magnesium ordered for the morning. Anemia: -Iron deficiency, follows with hematology. Due for iron infusions outpatient, will transfuse 1 unit today given hemoglobin 7.5 in the setting of worsening anemia, cardiac disease, weakness and respiratory distress. Hypertension Hyperlipidemia CAD -Continue Lipitor 40 mg nightly, Plavix 75 mg daily, irbesartan 37.5 mg daily, metoprolol succinate 50 mg daily. GERD: Continue pantoprazole 40 mg nightly Myopericarditis NSTEMI - concern for myopericarditis in the setting of flu. Trivial pericardial effusion on echo. Repeat echo today with stable effusion. No tamponade at this time however. Continue colchicine and ibuprofen. -Preliminary echo with EF 50 to 55% - Continue Lasix 40 mg twice daily. -Discussed case with cardiology, treatment as above. Monitor for improvement. Will need close follow-up and evaluation for ischemic workup as an outpatient. Depression: Continue citalopram 40 mg daily Full code Regular diet DVT PPx - lovenox
[2023-04-22 21:03] LABS: Hematocrit 29.1 % (37.0-47.0)
[2023-04-22 21:22] LABS: Hemoglobin 9.5 g/dL (12.2-16.2)
[2023-04-22] MEDS: ATORVASTATIN 40MG TABLET 40 MG PO (23:53)
[2023-04-22] MEDS: PANTOPRAZOLE 40MG TABLET 40 MG PO (23:54)
[2023-04-22] MEDS: PRAMIPEXOLE 1MG TAB 2 MG PO (23:56)
[2023-04-23] VITALS (16 sets, daily range): BP systolic 122–136; BP diastolic 44–81; PULSE 70–107; RESP 20–22; TEMP 36.7–37.4; O2SAT 2–96; BMI 32.5
[2023-04-23] MEDS: IPRATROPIUM/ALBUTEROL 3 ML NEB IH ×6 (01:58→21:46)
[2023-04-23] MEDS: BUDESONIDE 0.5MG/2ML NEB 0.5 MG IH ×2 (06:47→17:59)
[2023-04-23 07:40] LABS: Basophils % 0.3 % (0.1-2.0); Eosinophils # 0.1 K/mm3 (0.0-0.4); Eosinophils % 0.8 % (0.1-12.0); Hematocrit 29.9 % (37.0-47.0); Hemoglobin 9.2 g/dL (12.2-16.2); Lymphocytes # 1.3 K/mm3 (0.7-4.5); Lymphocytes % 12.8 % (10-50); Mean Corpuscular HGB Conc 30.9 g/dL (31.8-35.4); Mean Corpuscular Hemoglobin 26.7 pg (27.0-31.2); Mean Corpuscular Volume 86.2 fl (81-99); Mean Platelet Volume 7.9 fl (7.4-10.4); Monocytes # 0.8 K/mm3 (0.1-1.0); Neutrophils % 78.2 % (37.0-80.0); Platelet Count 365 K/mm3 (142-424); Red Blood Count 3.46 M/mm3 (4.20-5.40); Red Cell Distribution Width 20.7 % (11.5-17.5); White Blood Count 10.2 K/mm3 (4.8-10.8)
[2023-04-23 07:47] LABS: Alanine Aminotransferase 22 U/L (12-78); Albumin Level 3.2 g/dl (3.5-5.0); Alkaline Phosphatase 131 U/L (38-126); Anion Gap 8.8 mEq/L (5-15); Aspartate Amino Transferase 33 U/L (14-36); Bilirubin,Total 0.4 mg/dl (0.2-1.3); Blood Urea Nitrogen 27 mg/dl (7-17); Calcium 8.6 mg/dl (8.4-10.2); Carbon Dioxide 30 mmol/L (22.0-30.0); Chloride 108 mmol/L (98-107); Creatinine Clearance Estimated 51 mL/min (50-200); Estimated Glomerular Filt Rate 60 ml/min (>60); GFR (African American) 73 ML/MIN (>60); Globulin 3.3 g/dL (1.3-3.2); Glucose 84 mg/dl (74-100); Magnesium 2.2 mg/dl (1.6-2.3); Potassium 3.8 mmoL/L (3.5-5.1); Sodium 143 mmol/L (136-145); Total Protein,Serum 6.5 g/dl (6.3-8.2)
[2023-04-23] MEDS: METOPROLOL SUCCINATE XL 50MG TABLET 50 MG PO (08:13)
[2023-04-23] MEDS: IRBESARTAN 75MG TABLET 37.5 MG PO (08:13)
[2023-04-23] MEDS: CLOPIDOGREL 75MG TAB 75 MG PO (08:13)
[2023-04-23] MEDS: POTASSIUM CHLORIDE 20MEQ TAB 40 MEQ PO ×2 (08:13→20:33)
[2023-04-23] MEDS: NYSTATIN SUSP 500,000 UNITS/5ML UDC 500000 UNIT PO ×4 (08:13→20:33)
[2023-04-23] MEDS: FUROSEMIDE 80 MG TABLET PO (08:13)
[2023-04-23] MEDS: CITALOPRAM 40MG TABLET 40 MG PO (08:13)
[2023-04-23] MEDS: COLCHICINE 0.6MG TABLET 0.599999999999999978 MG PO ×2 (08:13→20:34)
[2023-04-23] MEDS: predniSONE 20MG TAB 40 MG PO (08:14)
[2023-04-23] MEDS: ENOXAPARIN 40MG/0.4ML SYRINGE 40 MG SQ (08:14)
[2023-04-23] MEDS: levoFLOXacin 750 MG TABLET PO (11:28)
--- NOTE | 2023-04-23 13:03 | P.PN_ITS ---
Subjective *Date: 04/23/23 *Time: 13:03 Interval history: Feeling little better this morning. Afebrile overnight. Improved with transfusion. Tolerating p.o. intake. No nausea or vomiting. Slept well per her report. Medical Exam Vital signs and Labs for Last 24 Hours: Vital Signs Temp Pulse Pulse Resp BP BP Pulse Ox 04/23/23 12:00 90 04/23/23 11:37 98.5 F 83 22 136/51 L 96 04/23/23 11:00 04/23/23 10:00 70 04/23/23 10:00 73 04/23/23 10:00 93 L 04/23/23 08:30 04/23/23 08:20 04/23/23 08:01 100 H 04/23/23 08:00 04/23/23 07:53 93 H 20 126/62 95 04/23/23 06:48 77 04/23/23 06:48 75 04/23/23 06:48 91 L 04/23/23 05:00 04/23/23 04:00 83 04/23/23 04:00 99.1 F 92 H 20 129/81 96 04/23/23 03:00 04/23/23 01:00 04/23/23 00:42 04/23/23 00:00 98.0 F 107 H 22 122/63 95 04/22/23 23:00 04/22/23 23:00 04/22/23 21:00 04/22/23 20:30 87 04/22/23 20:00 110 H 04/22/23 19:21 98.1 F 105 H 20 134/58 L 94 L 04/22/23 19:12 93 H 04/22/23 19:12 93 H 04/22/23 19:12 92 L 04/22/23 18:55 04/22/23 18:21 98.7 F 98 H 24 141/94 H 94 L 04/22/23 17:45 98.1 F 95 H 24 140/55 L 94 L 04/22/23 17:00 04/22/23 16:45 98.3 F 100 H 23 141/58 H 94 L 04/22/23 16:30 98.7 F 106 H 23 136/65 97 04/22/23 16:15 98.5 F 97 H 23 142/59 H 94 L 03/08/24 16:00 95 H 04/22/23 16:00 98.5 F 103 H 24 135/75 94 L 04/22/23 15:55 98.1 F 101 H 22 137/50 L 94 L 04/22/23 15:51 04/22/23 15:50 98.7 F 101 H 23 125/58 L 93 L 04/22/23 15:45 98.6 F 102 H 22 120/53 L 94 L 04/22/23 15:36 98.4 F 104 H 22 130/63 94 L 04/22/23 15:16 99.0 F 99 H 22 131/57 L 93 L 04/22/23 15:00 04/22/23 14:08 107 H 04/22/23 14:08 107 H 04/22/23 14:08 90 L 04/22/23 13:13 100 H O2 Del Method O2 Flow Rate 04/23/23 12:00 04/23/23 11:37 Nasal Cannula 3 04/23/23 11:00 Nasal Cannula 2 04/23/23 10:00 04/23/23 10:00 04/23/23 10:00 Nasal Cannula 2 04/23/23 08:30 Nasal Cannula 2 04/23/23 08:20 Nasal Cannula 2 04/23/23 08:01 04/23/23 08:00 2 04/23/23 07:53 Nasal Cannula 2 04/23/23 06:48 04/23/23 06:48 04/23/23 06:48 Nasal Cannula 5 04/23/23 05:00 Nasal Cannula 2 04/23/23 04:00 04/23/23 04:00 Nasal Cannula 04/23/23 03:00 Nasal Cannula 3 04/23/23 01:00 Nasal Cannula 3 04/23/23 00:42 30 04/23/23 00:00 Nasal Cannula 2 04/22/23 23:00 Nasal Cannula 3 04/22/23 23:00 Nasal Cannula 2 04/22/23 21:00 Nasal Cannula 3 04/22/23 20:30 04/22/23 20:00 04/22/23 19:21 Nasal Cannula 3 04/22/23 19:12 04/22/23 19:12 04/22/23 19:12 Nasal Cannula 5 04/22/23 18:55 Nasal Cannula 04/22/23 18:21 04/22/23 17:45 04/22/23 17:00 Nasal Cannula 2 04/22/23 16:45 04/22/23 16:30 04/22/23 16:15 04/22/23 16:00 04/22/23 16:00 04/22/23 15:55 04/22/23 15:51 Nasal Cannula 2 04/22/23 15:50 04/22/23 15:45 04/22/23 15:36 04/22/23 15:16 Nasal Cannula 2 04/22/23 15:00 Nasal Cannula 2 04/22/23 14:08 04/22/23 14:08 04/22/23 14:08 Nasal Cannula 2 04/22/23 13:13 Intake and Output 04/22/23 04/23/23 04/23/23 23:59 07:59 15:59 Intake Total 820 / 2012 350 / 350 Output Total 0 / 250 0 / 100 100 / 100 Balance 820 / 1762 350 / 250 -100 / 250 Intake: Intake, Oral Amount 570 / 1762 350 / 350 Intake (Blood Product) Amt 250 / 250 Red Blood Cells Unit 250 / 250 [id number] Output: Output, Urine Amount 0 / 250 0 / 100 100 / 100 Other: Number of Unmeasured Voids 1 1 1 Number of Bowel Movements 1 1 1 Weight 73.113 kg Patient Weight 04/23/23 23:59 Weight 73.113 kg Laboratory Results - last 24 hr 04/22/23 11:19: Blood Type A Positive, Antibody Screen Negative, Crossmatch (AHG) See Detail 04/22/23 20:45: Hgb 9.5 L D, Hct 29.1 L 04/23/23 06:17: WBC 10.2, RBC 3.46 L, Hgb 9.2 L, Hct 29.9 L, MCV 86.2, MCH 26.7 L, MCHC 30.9 L, RDW 20.7 H, Plt Count 365, MPV 7.9, Neut % (Auto) 78.2, Lymph % (Auto) 12.8, [place] % (Auto) 8.0, Eos % (Auto) 0.8, Baso % (Auto) 0.3, Neut # (Auto) 8.0 H, Lymph # (Auto) 1.3, [place] # (Auto) 0.8, Eos # (Auto) 0.1, Baso # (Auto) 0.0, Sodium 143, Potassium 3.8, Chloride 108 H, Carbon Dioxide 30, Anion Gap 8.8, BUN 27 H, Creatinine 0.90 D, Estimated Creat Clear 51, Estimated GFR 60, Est GFR ( Amer) 73 D, Glucose 84 D, Calcium 8.6, Magnesium 2.2, Total Bilirubin 0.4, AST 33, ALT 22, Alkaline Phosphatase 131 H, Total Protein 6.5, Albumin 3.2 L, Globulin 3.3 H, Albumin/Globulin Ratio 1.0 L I & O for Labs for Last 24 Hours: Intake & Output 04/20/23 04/21/23 04/22/23 04/23/23 23:59 23:59 23:59 23:59 Intake Total 850 / 850 990 / 1230 2011 350 / 350 Output Total 0 / 0 350 / 600 250 / 250 100 / 100 Balance 850 / 850 640 / 630 1762 / 1762 250 / 250 Weight 73.255 kg 73.482 kg 73.113 kg Microbiology Reports for the Last 24 Hours: Microbiology 04/18/23 05:32 Blood Blood Culture - Preliminary Constitutional: Present no acute distress, obese and chronically ill appearing Comment:: ill appearing Head: Present atraumatic and normocephalic ENT: Present normal exam Neck: Present normal inspection Respiratory: Present rhonchi, wheezes and normal respiratory effort; Absent crackles Cardiac: Present Reg Rate and Rhythm GI: Present soft and normal bowel sounds; Absent distention or tenderness (female): Present deferred Extremities: Present normal inspection and full ROM Skin: Present intact; Absent erythema Neuro: Present Grossly Intact, alert, awake, oriented x 3 and moves all extremities Assessment and Plan *Assessment and plan (1) Influenza A with pneumonia: Status: Acute Category: Medical Code(s): J09.X1 - Influenza due to identified novel influenza A virus with pneumonia (2) Sepsis: Status: Acute Qualifiers: Acute respiratory failure type: with hypoxia Sepsis acute organ dysfunction status: with acute organ dysfunction Sepsis type: sepsis due to unspecified organism Severe sepsis acute organ dysfunction type: acute respiratory failure Severe sepsis shock status: without septic shock Qualified Code(s): A41.9 - Sepsis, unspecified organism; R65.20 - Severe sepsis without septic shock; J96.01 - Acute respiratory failure with hypoxia Category: Medical Code(s): A41.9 - Sepsis, unspecified organism (3) Acute exacerbation of chronic obstructive pulmonary disease: Status: Acute Category: Medical Code(s): J44.1 - Chronic obstructive pulmonary disease with (acute) exacerbation (4) Heart failure with improved ejection fraction (HFimpEF): Status: Acute Category: Medical Code(s): I50.32 - Chronic diastolic (congestive) heart failure (5) Restrictive lung disease: Status: Chronic Category: Medical Code(s): J98.4 - Other disorders of lung (6) CAD (coronary artery disease): Status: Chronic Qualifiers: Coronary Disease-Associated Artery/Lesion type: [place] artery [place] vs. transplanted heart: [place] heart Associated angina: with stable angina Qualified Code(s): I25.118 - Atherosclerotic heart disease of [place] coronary artery with other forms of angina pectoris Category: Medical Code(s): I25.10 - Atherosclerotic heart disease of [place] coronary artery without angina pectoris (7) HTN (hypertension): Status: Chronic Qualifiers: Hypertension type: essential hypertension Qualified Code(s): I10 - Essential (primary) hypertension Category: Medical Code(s): I10 - Essential (primary) hypertension Plan Admitted because she was on BiPAP I patient is a 82-year-old female with past medical history of heart failure with preserved ejection fraction CAD s/p AICD, hypertension asthma who presents to the hospital due to chest pain shortness of breath. According to the patient she had chest pain with shortness of breath. She also felt warm chills as well as he had sick contacts around her. Patient was requiring BiPAP and was admitted for further evaluation. Weaned from BiPAP. Showing improvement in oxygen today. Down to 2 L. Continues to require inpatient management. Pulmonology and cardiology assisting with care. Dissipate discharge in the next day or 2. Problems addressed as follows: Acute hypoxemic respiratory failure Influenza A with pneumonia - Discussed case with pulmonology, continue Tamiflu for 10 days. Continue levofloxacin for 5 days. Recommend continuing DuoNebs every 4 hours and Pulmicort every 12 hours. - Goal saturation greater than 90%, continue supplemental oxygen. Currently 2 L. -White count within normal range at 10.2. Repeat CBC, CMP, magnesium ordered for the morning. Anemia: -Iron deficiency, follows with hematology. Due for iron infusions outpatient, status post 1 unit packed red blood cells yesterday for hemoglobin of 7.5. Responded well, hemoglobin 9.2. Breathing somewhat better today with decreasing oxygen requirement. Will continue to monitor, transfusion threshold hemoglobin less than 8. Hypertension Hyperlipidemia CAD -Continue Lipitor 40 mg nightly, Plavix 75 mg daily, irbesartan 37.5 mg daily, metoprolol succinate 50 mg daily. GERD: Continue pantoprazole 40 mg nightly Myopericarditis NSTEMI - concern for myopericarditis in the setting of flu. Trivial pericardial effusion on echo. Repeat echo today with stable effusion. No tamponade at this time however. Continue colchicine and ibuprofen. -Preliminary echo with EF 50 to 55% - Continue Lasix 40 mg twice daily. -Discussed case with cardiology, treatment as above. Monitor for improvement. Will need close follow-up and evaluation for ischemic workup as an outpatient. Depression: Continue citalopram 40 mg daily Full code Regular diet DVT PPx - lovenox
--- NOTE | 2023-04-23 16:47 | PC.NURSE ---
Patient remained on 2LNC and VS stable. Patient able to ambulate multiple times to bathroom from chair. Patient sat up in chair during lunch and afternoon. Lung sounds expiratory wheezing. Patient able to produce productive cough.
[2023-04-23] MEDS: PRAMIPEXOLE 1MG TAB 2 MG PO (20:33)
[2023-04-23] MEDS: PANTOPRAZOLE 40MG TABLET 40 MG PO (20:34)
[2023-04-23] MEDS: ATORVASTATIN 40MG TABLET 40 MG PO (20:34)
[2023-04-24] VITALS: PULSE 80; O2SAT 91
[2023-04-24] MEDS: IPRATROPIUM/ALBUTEROL 3 ML NEB IH ×3 (01:29→10:03)
[2023-04-24 04:00] VITALS: BP 131/49; PULSE 82; PULSE 86; RESP 18; TEMP 36.7; O2SAT 96; BMI 70.1
[2023-04-24] MEDS: BUDESONIDE 0.5MG/2ML NEB 0.5 MG IH (06:27)
[2023-04-24 06:28] VITALS: PULSE 78; PULSE 79; O2SAT 94
--- NOTE | 2023-04-24 06:43 | PC.NURSE ---
Pt is alert and oriented x4 and currently tolerating 2L of O2 well. Pt is extremely pleasant and has no complaints. Assisted pt to the BR x1.
--- NOTE | 2023-04-24 07:45 | PC.NURSE ---
patient oxygen saturation 87% on room air at rest
[2023-04-24 07:48] VITALS: BP 150/68; PULSE 93; RESP 24; TEMP 36.8; O2SAT 92
[2023-04-24] MEDS: NYSTATIN SUSP 500,000 UNITS/5ML UDC 500000 UNIT PO ×2 (08:07→12:16)
[2023-04-24] MEDS: ENOXAPARIN 40MG/0.4ML SYRINGE 40 MG SQ (08:07)
[2023-04-24] MEDS: COLCHICINE 0.6MG TABLET 0.599999999999999978 MG PO (08:07)
[2023-04-24] MEDS: predniSONE 20MG TAB 40 MG PO (08:07)
[2023-04-24] MEDS: IRBESARTAN 75MG TABLET 37.5 MG PO (08:07)
[2023-04-24] MEDS: POTASSIUM CHLORIDE 20MEQ TAB 40 MEQ PO (08:07)
[2023-04-24] MEDS: METOPROLOL SUCCINATE XL 50MG TABLET 50 MG PO (08:08)
[2023-04-24] MEDS: FUROSEMIDE 80 MG TABLET PO (08:08)
[2023-04-24] MEDS: CLOPIDOGREL 75MG TAB 75 MG PO (08:08)
[2023-04-24] MEDS: CITALOPRAM 40MG TABLET 40 MG PO (08:08)
[2023-04-24 08:59] LABS: Alanine Aminotransferase 24 U/L (12-78); Albumin Level 3.6 g/dl (3.5-5.0); Alkaline Phosphatase 133 U/L (38-126); Anion Gap 16.5 mEq/L (5-15); Aspartate Amino Transferase 33 U/L (14-36); Basophils % 0.2 % (0.1-2.0); Bilirubin,Total 0.3 mg/dl (0.2-1.3); Blood Urea Nitrogen 22 mg/dl (7-17); Calcium 8.9 mg/dl (8.4-10.2); Carbon Dioxide 28 mmol/L (22.0-30.0); Chloride 102 mmol/L (98-107); Creatinine Clearance Estimated 30 mL/min (50-200); Eosinophils # 0.1 K/mm3 (0.0-0.4); Eosinophils % 0.6 % (0.1-12.0); Estimated Glomerular Filt Rate 60 ml/min (>60); GFR (African American) 73 ML/MIN (>60); Globulin 3.5 g/dL (1.3-3.2); Glucose 85 mg/dl (74-100); Hematocrit 33.9 % (37.0-47.0); Hemoglobin 10.1 g/dL (12.2-16.2); Lymphocytes # 1.3 K/mm3 (0.7-4.5); Lymphocytes % 11.8 % (10-50); Mean Corpuscular HGB Conc 29.9 g/dL (31.8-35.4); Mean Corpuscular Hemoglobin 25.7 pg (27.0-31.2); Mean Corpuscular Volume 85.8 fl (81-99); Mean Platelet Volume 7.9 fl (7.4-10.4); Monocytes # 0.8 K/mm3 (0.1-1.0); Monocytes % 7.6 % (1.7-9.3); Neutrophils # 8.4 K/mm3 (1.8-7.8); Neutrophils % 79.8 % (37.0-80.0); Platelet Count 388 K/mm3 (142-424); Potassium 3.5 mmoL/L (3.5-5.1); Red Blood Count 3.95 M/mm3 (4.20-5.40); Red Cell Distribution Width 20.6 % (11.5-17.5); Sodium 143 mmol/L (136-145); Total Protein,Serum 7.1 g/dl (6.3-8.2); White Blood Count 10.6 K/mm3 (4.8-10.8)
[2023-04-24 09:22] VITALS: O2SAT 86
--- NOTE | 2023-04-24 09:22 | PC.NURSE ---
Room air Saturation 86% at rest.
--- NOTE | 2023-04-24 09:52 | EXP.DC.SUM ---
General Admission date:: 04/18/23 Discharge date: 04/24/23 HPI HPI HPI: Because she is on BiPAP I patient is a 82-year-old female with past medical history of heart failure with preserved ejection fraction CAD s/p AICD, hypertension asthma who presents to the hospital due to chest pain shortness of breath. According to the patient she had chest pain with shortness of breath. She also felt warm chills as well as he had sick contacts around her. Patient was requiring BiPAP and was admitted for further evaluation. Patient denied diarrhea constipation dysuria Hospital Course Hospital Course Hospital Course: [id number] female with COPD and iron deficient anemia. Presented with respiratory distress to the ER. Admitted because she was on BiPAP I patient is a 82-year-old female with past medical history of heart failure with preserved ejection fraction CAD s/p AICD, hypertension asthma who presents to the hospital due to chest pain shortness of breath. According to the patient she had chest pain with shortness of breath. She also felt warm chills as well as he had sick contacts around her. Patient was requiring BiPAP and was admitted for further evaluation. During admission, weaned from BiPAP. Showed improvement in oxygen requirement. Down to 2 L with improved oxygenation. Ambulating independently. Completed Tamiflu and antibiotics during admission. Stable to discharge home to complete course of steroids. Recommend close follow-up with pulmonology and cardiology in the coming weeks. Problems addressed during hospitalization as follows: Acute hypoxemic respiratory failure Influenza A with pneumonia -Admitted for respiratory failure and flu with pneumonia. Initiated on Levaquin, Tamiflu, steroids. Showed gradual improvement in symptoms. Required breathing treatments every 4 hours. Weaned to 2 L by day of discharge. Maintaining sats in the high 80s on room air. Completed her course of Tamiflu and Levaquin during admission. Will complete few more days of prednisone at discharge. Initiate Trelegy inhaler. White cell count normal at 10 on day of discharge. Overall doing better. Follow-up with pulmonology as an outpatient. Anemia: -Iron deficiency, follows with hematology. Due for iron infusions outpatient, status post 1 unit packed red blood cells during admission for hemoglobin of 7.5 in the setting of CAD. Responded well with hemoglobin improved to 9.2 after transfusion. Increased to 10 by day of discharge. Platelets 388. Recommend proceeding with iron transfusions as an outpatient over the next few weeks. Hypertension Hyperlipidemia CAD -Continue Lipitor 40 mg nightly, Plavix 75 mg daily, irbesartan 37.5 mg daily, metoprolol succinate 50 mg daily. GERD: Continue pantoprazole 40 mg nightly Myopericarditis NSTEMI - concern for myopericarditis in the setting of flu. Trivial pericardial effusion on echo. Repeat echos during admission showed small effusion with no tamponade. Recommend continuing colchicine for 3 months at discharge. Pulmonary EF 50 to 55%. Recommend follow-up with cardiology. Will continue Lasix after discharge. No chest pain. Depression: Continue citalopram 40 mg daily Total time spent on discharge 35 minutes in counseling, documentation, chart review, and direct care with patient. Exam Data for Last 24 hours Vital signs and Labs for Last 24 Hours: Temp Pulse Resp BP Pulse Ox O2 Del Method O2 Flow Rate 98.2 F 93 H 24 150/68 H 86 L Room Air 2 04/24/23 07:48 04/24/23 07:48 04/24/23 07:48 04/24/23 07:48 04/24/23 09:22 04/24/23 09:22 04/24/23 09:00 FiO2 40 04/20/23 00:53 Laboratory Results - last 24 hr 04/24/23 07:31: WBC 10.6, RBC 3.95 L, Hgb 10.1 L, Hct 33.9 L, MCV 85.8, MCH 25.7 L, MCHC 29.9 L, RDW 20.6 H, Plt Count 388, MPV 7.9, Neut % (Auto) 79.8, Lymph % (Auto) 11.8, [place] % (Auto) 7.6, Eos % (Auto) 0.6, Baso % (Auto) 0.2, Neut # (Auto) 8.4 H, Lymph # (Auto) 1.3, [place] # (Auto) 0.8, Eos # (Auto) 0.1, Baso # (Auto) 0.0, Sodium 143, Potassium 3.5, Chloride 102, Carbon Dioxide 28, Anion Gap 16.5 H, BUN 22 H, Creatinine 0.90, Estimated Creat Clear 30, Estimated GFR 60, Est GFR ( Amer) 73, Glucose 85, Calcium 8.9, Magnesium 2.0, Total Bilirubin 0.3, AST 33, ALT 24, Alkaline Phosphatase 133 H, Total Protein 7.1, Albumin 3.6 D, Globulin 3.5 H, Albumin/Globulin Ratio 1.0 L I & O for Last 24 hours: Intake & Output 04/21/23 04/22/23 04/23/23 04/25/23 23:59 23:59 23:59 00:59 Intake Total 990 / 1230 2011 950 / 1430 480 / 480 Output Total 350 / 600 250 / 250 100 / 100 0 / 0 Balance 640 / 630 1762 / 1762 850 / 1330 480 / 480 Weight 73.255 kg 73.482 kg 73.113 kg 157.8 kg Microbiology Reports for the Last 24 Hours: Microbiology 04/18/23 05:32 Blood Blood Culture - Preliminary Constitutional Constitutional: no acute distress, average body habitus, chronically ill appearing and cooperative *Routine HEENT Exam Head: Present normocephalic Eye: Present EOMI and PERRL ENT: Present mucous membranes moist *Routine Neck Exam Neck: Present supple; Absent lymphadenopathy *Routine Respiratory Exam Respiratory: Present prolonged expiratory phase, wheezes and diminished air movement; Absent rhonchi or crackles *Routine Cardiovascular Exam Cardiovascular: Present RRR *Routine Abdominal Exam Abdominal: Present soft and normoactive bowel sounds; Absent tenderness *Routine Extremities Exam Extremities: Absent cyanosis, clubbing or edema *Routine Skin Exam Skin: Present warm; Absent rash *Routine Neurological Exam Neurological: Present alert, oriented X3 and moving all extremities; Absent altered mental status Results Data Completed and Pending Labs on day of discharge: Labs from last 24 hours 04/24/23 07:31 WBC 10.6 RBC 3.95 L Hgb 10.1 L Hct 33.9 L MCV 85.8 MCH 25.7 L MCHC 29.9 L RDW 20.6 H Plt Count 388 MPV 7.9 Neut % (Auto) 79.8 Lymph % (Auto) 11.8 [place] % (Auto) 7.6 Eos % (Auto) 0.6 Baso % (Auto) 0.2 Neut # (Auto) 8.4 H Lymph # (Auto) 1.3 [place] # (Auto) 0.8 Eos # (Auto) 0.1 Baso # (Auto) 0.0 Sodium 143 Potassium 3.5 Chloride 102 Carbon Dioxide 28 Anion Gap 16.5 H BUN 22 H Creatinine 0.90 Estimated Creat Clear 30 Estimated GFR 60 Est GFR ( Amer) 73 Glucose 85 Calcium 8.9 Magnesium 2.0 Total Bilirubin 0.3 AST 33 ALT 24 Alkaline Phosphatase 133 H Total Protein 7.1 Albumin 3.6 D Globulin 3.5 H Albumin/Globulin Ratio 1.0 L Preliminary micro results at discharge 04/18/23 05:32 Blood Culture - Preliminary Blood 04/18/23 05:55 Blood Culture - Preliminary Blood DS: Diagnosis Discharge Diagnosis (1) Influenza A with pneumonia: Status: Acute Code(s): J09.X1 - Influenza due to identified novel influenza A virus with pneumonia (2) Sepsis: Status: Acute Code(s): A41.9 - Sepsis, unspecified organism Qualifiers: Acute respiratory failure type: with hypoxia Sepsis acute organ dysfunction status: with acute organ dysfunction Sepsis type: sepsis due to unspecified organism Severe sepsis acute organ dysfunction type: acute respiratory failure Severe sepsis shock status: without septic shock Qualified Code(s): A41.9 - Sepsis, unspecified organism; R65.20 - Severe sepsis without septic shock; J96.01 - Acute respiratory failure with hypoxia (3) Acute exacerbation of chronic obstructive pulmonary disease: Status: Acute Code(s): J44.1 - Chronic obstructive pulmonary disease with (acute) exacerbation (4) Heart failure with improved ejection fraction (HFimpEF): Status: Acute Code(s): I50.32 - Chronic diastolic (congestive) heart failure (5) Restrictive lung disease: Status: Chronic Code(s): J98.4 - Other disorders of lung (6) CAD (coronary artery disease): Status: Chronic Code(s): I25.10 - Atherosclerotic heart disease of [place] coronary artery without angina pectoris Qualifiers: Associated angina: with stable angina Coronary Disease-Associated Artery/Lesion type: [place] artery [place] vs. transplanted heart: [place] heart Qualified Code(s): I25.118 - Atherosclerotic heart disease of [place] coronary artery with other forms of angina pectoris (7) HTN (hypertension): Status: Chronic Code(s): I10 - Essential (primary) hypertension Qualifiers: Hypertension type: essential hypertension Qualified Code(s): I10 - Essential (primary) hypertension Meds Home Medications and Allergies Home Medications Medication Instructions Recorded Confirmed Type escitalopram oxalate 20 mg tablet 20 mg PO DAILY 02/24/17 04/18/23 History omeprazole 20 mg capsule,delayed 20 mg PO DAILY 01/17/23 04/18/23 History release potassium citrate 99 mg capsule 99 mg PO DAILY 01/17/23 04/18/23 History atorvastatin 40 mg tablet 40 mg PO HS Cholesterol #90 tabs 01/26/23 04/18/23 Rx furosemide 40 mg tablet (Lasix) 80 mg (2 x 40 mg) PO BID Fluid 01/26/23 04/18/23 Rx #180 tabs metoprolol succinate 50 mg 50 mg PO DAILY High blood pressure 01/26/23 04/18/23 Rx tablet,extended release 24 hr #90 tabs clopidogrel 75 mg tablet 75 mg PO DAILY 04/18/23 04/18/23 History losartan 25 mg tablet 25 mg PO DAILY 04/18/23 04/18/23 History pramipexole 1 mg tablet 2 mg PO HS 04/18/23 04/18/23 History colchicine 0.6 mg tablet (Colcrys) 0.6 mg PO BID 30 days #60 tabs 04/24/23 Rx nystatin 100,000 unit/mL oral 500,000 unit (5 mL) PO QID 8 days 04/24/23 Rx suspension #160 mL prednisone 20 mg tablet 40 mg (2 x 20 mg) PO DAILY 4 days 04/24/23 Rx #8 tabs New Prescriptions to Start Prescriptions: colchicine [Colcrys] Haim Carlin nystHaim Wiley prednisone Haim Carlin Allergies Allergy/AdvReac Type Severity Reaction Status Date / Time No Known Allergies Allergy Verified 04/14/23 13:01 Discharge Plan Disposition Patient Disposition: Home Health Service Condition: Fair Discharge Order Discharge Orders: Discharge Order (Routine); Ordered 04/24/23 Ordered By: Haim Carlin Follow up Plan Follow up with: Jaymie Price MD [Referring] - Enter time for follow up (Please call and make your follow up appt. ) Madison Enriquez MD [Physician] - Enter time for follow up (The office will call you with a follow up appt. ) Dmitry Villeda MD [Staff Physician] - Enter time for follow up (The office will call you with a follow up appt. ) Prescriptions/Medication Reconciliation: New colchicine [Colcrys] 0.6 mg Tablet 0.6 mg PO BID 30 Days Qty: 60 2RF nystatin 100,000 unit/mL Suspension 500,000 unit PO QID 8 Days Qty: 160 0RF prednisone 20 mg Tablet 40 mg PO DAILY 4 Days Qty: 8 0RF Continued atorvastatin 40 mg tablet 40 mg PO HS Qty: 90 3RF furosemide [Lasix] 40 mg tablet 80 mg PO BID Qty: 180 3RF metoprolol succinate 50 mg tablet extended release 24 hr 50 mg PO DAILY Qty: 90 3RF omeprazole 20 mg capsule,delayed release(DR/EC) 20 mg PO DAILY potassium citrate 99 mg capsule 99 mg PO DAILY escitalopram oxalate 20 MG tablet 20 mg PO DAILY pramipexole 1 mg tablet 2 mg PO HS Patient Comments: TAKE 2 TABLETS BY MOUTH EVERY NIGHT clopidogrel 75 mg tablet 75 mg PO DAILY losartan 25 mg tablet 25 mg PO DAILY Problem Reconciliation Problems Reviewed?: Yes Patient Discharge Instructions ACTIVITY: Continue current activity and Ambulate as tolerated DIET: continue same diet Patient Instructions: DI for Heart Failure, DI for Pneumonia -- Adult, DI for Iron Deficiency Anemia-Adult, DI for Sepsis -- Adult Providers Primary Care Provider: Provider,Referral Admit Provider: Garcia Garland Attending Provider: Garcia Garland
[2023-04-24 10:03] VITALS: PULSE 84; PULSE 86
--- NOTE | 2023-04-25 09:22 | SW/DCPLANNER ---
Addendum entered by Abi Solorzano 04/25/23 13:50: Candelaria munoz/ [facility] stated that services will start Tuesday04/27/23 for this patient. Addendum entered by Abi [place] 04/25/23 12:38: [facility] is not able to accept patient. Patient information has been faxed to [facility]. Original Note: I spoke w/ patient and her son this AM regarding home health services. Patient/son are agreeable to home health services and prefer to use [facility] . Patient information/order has been faxed to [employer] [facility]. I will follow up once information/order is reviewed. Patient discharged home over the weekend.
--- NOTE | 2023-04-25 15:37 | CARE MANAGER ---
Contacted patient related to hospital discharge. Patient states that she is feeling very weak and still not the best. Home health is scheduled to come visit on Tuesday. She has made all of her follow up appointments. Denies questions or concerns and her son went to get her medications now. MARLY Barriga
== END 2023-04-24 13:40 | disposition home health service (06) | DRG 871 ==
LOC: ER 06:22 → ICU 06:34 → 2ND 04-20 13:22
PROVIDERS: Internal Medicine Adolescent Medicine; Nurse Practitioner Critical Care Medicine; Nurse Practitioner Family; Admitting Provider Internal Medicine; Emergency Provider Emergency Medicine; Visit Provider Internal Medicine
DX: A41.9 Sepsis, unspecified organism (principal); I21.4 Non-ST elevation (NSTEMI) myocardial infarction; J09.X1 Influenza due to identified novel influenza A virus with pneumonia; J96.01 Acute respiratory failure with hypoxia; J44.1 Chronic obstructive pulmonary disease with (acute) exacerbation; I31.9 Disease of pericardium, unspecified; I50.32 Chronic diastolic (congestive) heart failure; R65.20 Severe sepsis without septic shock; D50.9 Iron deficiency anemia, unspecified; E78.5 Hyperlipidemia, unspecified; I25.10 Atherosclerotic heart disease of native coronary artery without angina pectoris; F32.A Depression, unspecified; I11.0 Hypertensive heart disease with heart failure; K21.9 Gastro-esophageal reflux disease without esophagitis; Z95.810 Presence of automatic (implantable) cardiac defibrillator; Z87.891 Personal history of nicotine dependence
CPT/HCPCS: 36415; 71045; 71250; 80048; 80053; 82803; 83605; 83735; 83880; 84145; 84484; 85007; 85014; 85018; 85025; 86850; 87040; 87070; 87205; 87636; 93005; 93308; 94640; 94660; 94761; 97162; 97165; 99291; J0456; J0696; J3475; P9016

== ENCOUNTER 2023-05-10 12:42 | Outpatient (CLI) | payer MEDICARE, BC, SELFPAY ==
[2023-05-10 13:15] VITALS: BP 135/52; PULSE 78; RESP 16; TEMP 36.6; O2SAT 95
[2023-05-10] MEDS: IRON SUCROSE COMPLEX 200 MG in 0.9 % SODIUM CHLORIDE 100 ML 220 MG IV (13:15)
[2023-05-10] MEDS: SODIUM CHLORIDE 0.9% 10ML FLUSH SYRINGE 10 ML IV (13:15)
[2023-05-10] MEDS: SODIUM CHLORIDE 0.9% 50ML BAG 50 ML IV (13:15)
[2023-05-10 13:50] VITALS: BP 134/48; PULSE 72; RESP 16; TEMP 36.6; O2SAT 96
== END 2023-05-10 14:00 | disposition home or self-care (01) ==
PROVIDERS: PCP Family Medicine; Visit Provider Internal Medicine Medical Oncology
DX: D50.0 Iron deficiency anemia secondary to blood loss (chronic) (principal)
CPT/HCPCS: 96365; J1756

== ENCOUNTER 2023-05-17 12:20 | Outpatient (CLI) | payer MEDICARE, BC, SELFPAY ==
[2023-05-17] MEDS: SODIUM CHLORIDE 0.9% 50ML BAG 50 ML IV (12:42)
[2023-05-17] MEDS: IRON SUCROSE COMPLEX 200 MG in 0.9 % SODIUM CHLORIDE 100 ML 220 MG IV (12:42)
[2023-05-17 12:45] VITALS: BP 117/44; PULSE 62; RESP 16; O2SAT 96
[2023-05-17 13:25] VITALS: BP 147/69; PULSE 83
== END 2023-05-17 13:25 | disposition home or self-care (01) ==
LOC: INF 12:21
PROVIDERS: PCP Family Medicine; Visit Provider Internal Medicine Medical Oncology
DX: D50.8 Other iron deficiency anemias (principal)
CPT/HCPCS: 96365; J1756

== ENCOUNTER 2023-05-20 11:03 | Outpatient (CLI) | payer MEDICARE, BC, SELFPAY ==
--- NOTE | 2023-05-20 11:03 | NM_ITS ---
APPROVED REPORT Exam: Nuclear Stress Test Indication: Chest pain, SOB, HTN, Family history, CAD, Hx of ID Patient Location: Outpatient Stress Tech: Sofía Ojeda GA Tech:ANA LILIA Barker RT(R)(N) Ht: 5 ft 0 in Wt: 160 lbs Bra Size: 38C HR: 78 bpm BP: 125/53 mmHg BSA: 1.70 m2 TID: 1.09 History: Chest pain, SOB, HTN, Family history, CAD, Hx of ID Procedure: Patient received 0.4 mg of intravenous Lexiscan, resting heart rate 78 bpm, resting blood pressure 125/53 mmHg, with Lexiscan maximum heart rate achieved was 98 bpm which is % of the maximum predicted heart rate and blood pressure was 167/57 mmHg. With Lexiscan, patient denied any complaint of chest pain. Cardiac Stress and Resting SPECT Images: Cardiac Stress and Resting SPECT images were obtained using technetium 99m Myoview 31.6 mCi stress and 10.31 mCi at rest. The patient could not lie on her abdomen. Therefore, prone stress imaging could not be performed. This may affect the diagnostic interpretation of the study findings. Resting and stress imaging in supine positions demonstrate a small sized, mild, fixed perfusion defect in the distal anterior LV wall towards the LV apex. Gated imaging demonstrates mild reduction in global LV systolic function. There is moderate hypokinesis of the distal anterior LV wall. LVEF is calculated at 46%. Conclusion: Small sized, mild, fixed perfusion defect in the distal anterior LV wall towards the LV apex. No evidence of reversible ischemia. Gated imaging demonstrates mild reduction in global LV systolic function. There is moderate hypokinesis of the distal anterior LV wall. LVEF is calculated at 46%. Electronically signed by : Arielle Villeda MD 05/24/2023 23:39:14
--- NOTE | 2023-05-20 11:16 | CA_ITS ---
APPROVED REPORT EXAM: Limited 2D Echocardiogram Cookie Mixer Helper: Holly Sebastian, RCS, RVS Ht: 4 ft 11 in Wt: 165lbs BSA: 1.70 BP: 133/41 mmHg Indications: CAD, SOB, CM, LBBB Echo Enhancing Agent Comments: persistent pericardial effusion M-Mode Dimensions RVDd 1.56 cm (0.9-2.6) LA Diam 4.45 cm (1.9-4.0) LVDd 5.21 cm (3.5-5.7) LVDs 3.61 cm (3.5-5.7) IVSd 1.14 cm (0.6-1.1) PWd 1.14 cm (0.6-1.1) EF (Teich) 57.90% EPSs 0.61 cm FS 30.70% EDV (Teich) 130.10 mL ESV (Teich) 54.80 mL Other Information Study Quality: Technically Difficult Conclusion This is a limited TTE to evaluate for persistent pericardial effusion. Limited windows were obtained. Technically difficult study. There is a trivial anterior pericardial effusion present. There are no echo indications of tamponade. The IVC is not very well-visualized, but grossly appears normal in size and collapsible. Of note, there is also an epicardial fat pad present. Compared to prior study from 04/22/2023, the pericardial effusion appears to be improved. Electronically signed by : Arielle Villeda MD 05/23/2023 20:17:00
--- NOTE | 2023-05-20 14:05 | CA_ITS ---
APPROVED REPORT Exam: Pharmacologic Technologist: Sofía Mcfarlane, Ht: 4 ft 11 in Wt: 162 lbs BSA: 1.69 m2 HR: 75 bpm BP: 125/53 mmHg Rhythm: V-paced Indications: SOB, Dizziness Medical History Medications: Omeprazole,,,,, Losartan,,,,, Atorvastatin,,,,, Escitalopram,,,,, Pramipexole,,,,, Toprol,,,,, Lasix,,,,, CloPIdogrel,,,,, Prednisone,,,,, Potassium,,,,, ColCRYS,,,,, NYstatin,,,,, Stress Test Details Test: LEXISCAN Reason for pharmacologic stress test: physical limitation. HR Resting HR: 78 bpm Max Heart Rate (APMHR): 139 bpm Max HR Achieved: 98 bpm Target HR (85% APMHR): 118 bpm % of APMHR: 71 Recovery HR: 79 bpm BP Resting BP: 125.0/53.0 mmHg Max BP: 167.0/57.0 mmHg Recovery BP: 157.0/51.0 mmHg ECG Resting ECG: Ventricular paced rhythm Stress ECG: No significant ST changes Arrhythmia: None Clinical Exercise duration: 04:09 min Highest Stage Achieved: Exercise capacity: 1.0 METs Stress ECG Conclusion Ended early to let pt go to bathroom. Symptoms: Mild SOA & stomach discomfort. No CP. Arrhythmias/Ectopy: None ST-T Changes: Nondiagnostic Lexiscan stress test due to V paced rhythm. Myoview images reported separately. Conclusion: Non-diagnostic due to paced rhythm. Myoview images reported separately. Test Summary REST 03:20 . . 78 . 125/ 53 . . Stage 1 01:00 . . 94 . . . . Stage 2 01:00 . . 96 . . . . Stage 3 01:00 . . 91 . 167/ 57 . . Stage 4 01:00 . . 87 . 147/ 57 . . Stage 4 01:09 . . 75 . 147/ 57 . Stop exercise at 04:09 RECOVERY 01:00 . . 88 . 142/ 53 . . RECOVERY 02:00 . . 85 . 157/ 51 . . RECOVERY 02:17 . . 88 . 157/ 51 . . Electronically signed by : Arielle Villeda MD 05/24/2023 23:36:31
[2023-05-20] MEDS: REGADENOSON 0.4MG/5ML SYRINGE 0.400000000000000022 MG IV (14:06)
[2023-05-20] MEDS: SODIUM CHLORIDE 0.9% 10ML SYR (RAD ONLY) 10 ML IV ×2 (14:07)
[2023-05-20] MEDS: ISOTOPE MYOVIEW (PER STUDY) 1 DOSE IV (14:07)
== END 2023-05-20 23:59 ==
LOC: RAD 11:03
PROVIDERS: PCP Family Medicine; Visit Provider Nurse Practitioner Family
DX: I50.32 Chronic diastolic (congestive) heart failure (principal); E78.2 Mixed hyperlipidemia; D64.9 Anemia, unspecified; Z95.810 Presence of automatic (implantable) cardiac defibrillator; I25.118 Atherosclerotic heart disease of native coronary artery with other forms of angina pectoris; I10 Essential (primary) hypertension; R06.02 Shortness of breath; R06.00 Dyspnea, unspecified; R06.01 Orthopnea; R79.89 Other specified abnormal findings of blood chemistry
CPT/HCPCS: 78452; 93017; 93018; 93308; A9502; J2785

== ENCOUNTER 2023-05-24 12:27 | Outpatient (CLI) | payer MEDICARE, BC, SELFPAY ==
[2023-05-24] MEDS: SODIUM CHLORIDE 0.9% 50ML BAG 50 ML IV (12:45)
[2023-05-24] MEDS: SODIUM CHLORIDE 0.9% 10ML FLUSH SYRINGE 10 ML IV (12:45)
[2023-05-24 12:47] VITALS: BP 113/50; PULSE 66; RESP 18; TEMP 36.6; O2SAT 97
[2023-05-24] MEDS: IRON SUCROSE COMPLEX 200 MG in 0.9 % SODIUM CHLORIDE 100 ML 220 MG IV (12:47)
[2023-05-24 13:25] VITALS: BP 116/61; PULSE 74; RESP 18; O2SAT 97
== END 2023-05-24 13:40 | disposition home or self-care (01) ==
LOC: INF 12:28
PROVIDERS: PCP Family Medicine; Visit Provider Internal Medicine Medical Oncology
DX: D50.0 Iron deficiency anemia secondary to blood loss (chronic) (principal)
CPT/HCPCS: 96365; J1756

== ENCOUNTER 2023-05-31 13:15 | Outpatient (CLI) | payer MEDICARE, BC, SELFPAY ==
[2023-05-31 13:30] VITALS: BP 105/49; PULSE 85; RESP 16; TEMP 36.6; O2SAT 96
[2023-05-31] MEDS: IRON SUCROSE COMPLEX 200 MG in 0.9 % SODIUM CHLORIDE 100 ML 220 MG IV (13:30)
[2023-05-31] MEDS: SODIUM CHLORIDE 0.9% 50ML BAG 50 ML IV (13:30)
[2023-05-31] MEDS: SODIUM CHLORIDE 0.9% 10ML FLUSH SYRINGE 10 ML IV (13:30)
[2023-05-31 14:08] VITALS: BP 110/52; PULSE 82; RESP 16; TEMP 36.6; O2SAT 96
== END 2023-05-31 14:15 | disposition home or self-care (01) ==
LOC: INF 13:16
PROVIDERS: PCP Family Medicine; Visit Provider Internal Medicine Medical Oncology
DX: D50.0 Iron deficiency anemia secondary to blood loss (chronic) (principal); T45.4X5A Adverse effect of iron and its compounds, initial encounter
CPT/HCPCS: 96365; J1756

== ENCOUNTER 2023-06-07 13:17 | Outpatient (CLI) | payer MEDICARE, BC, SELFPAY ==
[2023-06-07 13:38] VITALS: BP 110/42; PULSE 69; RESP 18; TEMP 36.6; O2SAT 98
[2023-06-07] MEDS: SODIUM CHLORIDE 0.9% 50ML BAG 50 ML IV (13:38)
[2023-06-07] MEDS: SODIUM CHLORIDE 0.9% 10ML FLUSH SYRINGE 10 ML IV (13:39)
[2023-06-07] MEDS: IRON SUCROSE COMPLEX 200 MG in 0.9 % SODIUM CHLORIDE 100 ML 220 MG IV (13:39)
[2023-06-07 14:25] VITALS: BP 108/61; PULSE 67; RESP 18; O2SAT 98
== END 2023-06-07 14:27 | disposition home or self-care (01) ==
LOC: INF 13:18
PROVIDERS: PCP Family Medicine; Visit Provider Internal Medicine Medical Oncology
DX: D50.0 Iron deficiency anemia secondary to blood loss (chronic) (principal)
CPT/HCPCS: 96365; J1756

== ENCOUNTER 2023-06-15 11:30 | Outpatient (CLI) | payer MEDICARE, BC, SELFPAY ==
[2023-06-15 11:48] LABS: Basophils % 0.7 % (0.1-2.0); Eosinophils # 0.1 K/mm3 (0.0-0.4); Hematocrit 32.6 % (37.0-47.0); Hemoglobin 10.2 g/dL (12.2-16.2); Lymphocytes # 0.9 K/mm3 (0.7-4.5); Mean Corpuscular HGB Conc 31.4 g/dL (31.8-35.4); Mean Corpuscular Hemoglobin 29.3 pg (27.0-31.2); Mean Corpuscular Volume 93.4 fl (81-99); Mean Platelet Volume 8.1 fl (7.4-10.4); Monocytes # 0.3 K/mm3 (0.1-1.0); Monocytes % 6.2 % (1.7-9.3); Neutrophils # 3.8 K/mm3 (1.8-7.8); Neutrophils % 74.2 % (37.0-80.0); Platelet Count 244 K/mm3 (142-424); Red Blood Count 3.49 M/mm3 (4.20-5.40); Red Cell Distribution Width 22.3 % (11.5-17.5); White Blood Count 5.2 K/mm3 (4.8-10.8)
[2023-06-15 12:21] LABS: Iron 79 ug/dL (37-170)
[2023-06-15 12:33] LABS: Total Iron Binding Capacity 398 ug/dL (265-497)
[2023-06-15 12:58] LABS: Ferritin 87.7 ng/ml (11.1-264)
== END 2023-06-15 23:59 | disposition home or self-care (01) ==
LOC: LAB 11:31
PROVIDERS: PCP Family Medicine; Visit Provider Internal Medicine Medical Oncology
DX: D50.9 Iron deficiency anemia, unspecified (principal)
CPT/HCPCS: 36415; 82728; 83540; 83550; 85025

== ENCOUNTER 2023-07-07 13:20 | Outpatient (CLI) | payer MEDICARE, BC, SELFPAY ==
--- NOTE | 2023-07-07 13:21 | CA_ITS ---
APPROVED REPORT EXAM: Comprehensive 2D, Doppler, and color-flow Echocardiogram Cardiac Cath Tech: Holly Sebastian, BREA, RVS Ht: 4 ft 11 in Wt: 151lbs BSA: 1.64 BP: 134/34 mmHg Indications: Follow-up pericard LBBB, CAD old [place], CHF Other Information Study Quality: Fair Conclusion This is a limited TTE to evaluate for pericardial effusion. Limited windows were obtained. There is a trivial, anterior pericardial effusion present. The effusion appears heterogeneous in echogenicity. No echo indications of tamponade. An epicardial fat pad is also present. Compared to the prior study from 05/20/2023, there are no significant changes. Electronically signed by : Arielle Villeda MD 07/07/2023 13:54:05
== END 2023-07-07 23:59 | disposition home or self-care (01) ==
LOC: RT 13:21
PROVIDERS: PCP Family Medicine; Visit Provider Physician Assistant
DX: I31.9 Disease of pericardium, unspecified (principal); I50.32 Chronic diastolic (congestive) heart failure
CPT/HCPCS: 93308

== ENCOUNTER 2023-07-15 09:41 | Outpatient (CLI) | payer MEDICARE, BC, SELFPAY ==
[2023-07-15 10:45] VITALS: PULSE 89
[2023-07-15] MEDS: ALBUTEROL 0.083% 2.5 MG/3 ML NEB IH (10:45)
== END 2023-07-15 23:59 | disposition home or self-care (01) ==
LOC: RT 09:42
PROVIDERS: Visit Provider Internal Medicine Pulmonary Disease
DX: R06.09 Other forms of dyspnea (principal)
CPT/HCPCS: 94060; 94618; 94640; 94726; 94729

== ENCOUNTER 2023-08-22 13:34 | Outpatient (CLI) | payer MEDICARE, BC, SELFPAY ==
[2023-08-22 14:02] LABS: Basophils # 0.1 K/mm3 (0-0.2); Basophils % 0.6 % (0.1-2.0); Eosinophils # 0.1 K/mm3 (0.0-0.4); Eosinophils % 1.2 % (0.1-12.0); Hematocrit 37.9 % (37.0-47.0); Hemoglobin 12.3 g/dL (12.2-16.2); Lymphocytes # 2.1 K/mm3 (0.7-4.5); Lymphocytes % 20.8 % (10-50); Mean Corpuscular HGB Conc 32.4 g/dL (31.8-35.4); Mean Corpuscular Hemoglobin 30.9 pg (27.0-31.2); Mean Corpuscular Volume 95.3 fl (81-99); Mean Platelet Volume 7.7 fl (7.4-10.4); Monocytes # 0.5 K/mm3 (0.1-1.0); Monocytes % 4.8 % (1.7-9.3); Neutrophils # 7.4 K/mm3 (1.8-7.8); Neutrophils % 72.6 % (37.0-80.0); Platelet Count 285 K/mm3 (142-424); Red Blood Count 3.97 M/mm3 (4.20-5.40); Red Cell Distribution Width 17.7 % (11.5-17.5); White Blood Count 10.2 K/mm3 (4.8-10.8)
[2023-08-22 14:23] LABS: Alanine Aminotransferase 29 U/L (12-78); Albumin Level 3.7 g/dl (3.5-5.0); Alkaline Phosphatase 144 U/L (38-126); Anion Gap 10.1 mEq/L (5-15); Aspartate Amino Transferase 55 U/L (14-36); Bilirubin,Indirect 0.3 mg/dL (0.0-0.9); Bilirubin,Total 0.3 mg/dl (0.2-1.3); Bilirubin,Unconjugated 0.4 mg/dL (0.0-1.1); Blood Urea Nitrogen 17 mg/dl (7-17); Calcium 9.1 mg/dl (8.4-10.2); Carbon Dioxide 26 mmol/L (22.0-30.0); Chloride 105 mmol/L (98-107); Chol/HDL Ratio 2.3 (1-3.5); Cholesterol 117 mg/dl (140-200); Estimated Glomerular Filt Rate 80 ml/min (>60); GFR (African American) 97 ML/MIN (>60); Glucose 103 mg/dl (74-100); HDL Cholesterol 50 mg/dl (40-60); Magnesium 2.1 mg/dl (1.6-2.3); Potassium 4.1 mmoL/L (3.5-5.1); Sodium 137 mmol/L (136-145); Total Protein,Serum 6.7 g/dl (6.3-8.2); Triglycerides 186 mg/dl (30-150); VLDL Cholesterol 37 mg/dL (0-40)
[2023-08-22 14:34] LABS: Direct LDL Cholesterol 32.57 mg/dL (100-129)
[2023-08-22 14:55] LABS: Thyroid Stimulating Hormone 0.19 uIU/mL (0.465-4.68)
== END 2023-08-22 23:59 | disposition home or self-care (01) ==
LOC: LAB 13:37
PROVIDERS: PCP Family Medicine; Visit Provider Physician Assistant
DX: I31.9 Disease of pericardium, unspecified (principal); E78.2 Mixed hyperlipidemia
CPT/HCPCS: 36415; 80048; 80061; 80076; 83735; 84439; 84443; 85025

== ENCOUNTER 2023-09-02 12:39 | Outpatient (CLI) | payer MEDICARE, BC, SELFPAY ==
--- NOTE | 2023-09-02 12:39 | CA_ITS ---
APPROVED REPORT EXAM: Limited 2D Echocardiogram Business Analyst Intern: Allison Abreu CRT Ht: 4 ft 11 in Wt: 149lbs BSA: 1.63 BP: 133/52 mmHg Indications: Pericardial Effusion check 2D Dimensions Left Atrium 3.84 cm LVOT 1.75 cm (M/F) 1.5-2.5 M-Mode Dimensions RVDd 2.31 cm (0.9-2.6) LVDd 4.41 cm (3.5-5.7) Ao Diam 3.98 cm (2.0-3.7) LVDs 2.53 cm (3.5-5.7) IVSd 1.28 cm (0.6-1.1) PWd 1.35 cm (0.6-1.1) EF (Teich) 73.90% FS 42.60% EDV (Teich) 88.20 mL ESV (Teich) 23.00 mL Other Information Study Quality: Fair Conclusion This is a limited TTE to evaluate for pericardial effusion. Limited windows were obtained. Technically difficult study. There is a small sized, anterior pericardial effusion present. The largest pocket measures 0.6 cm in diastole. No echo indications of tamponade. The IVC is normal in size and collapsible. Compared to prior study from 06/2023, there are no significant changes. Electronically signed by : Arielle Villeda MD 09/02/2023 23:33:32
== END 2023-09-02 23:59 | disposition home or self-care (01) ==
LOC: RT 12:39
PROVIDERS: PCP Family Medicine; Visit Provider Physician Assistant
DX: I31.9 Disease of pericardium, unspecified (principal); I50.32 Chronic diastolic (congestive) heart failure
CPT/HCPCS: 93308

== ENCOUNTER 2023-10-25 09:02 | Outpatient (CLI) | payer MEDICARE, BC, SELFPAY ==
[2023-10-25 09:34] LABS: Basophils # 0.1 K/mm3 (0-0.2); Basophils % 0.5 % (0.1-2.0); Eosinophils # 0.1 K/mm3 (0.0-0.4); Eosinophils % 0.8 % (0.1-12.0); Hematocrit 40.4 % (37.0-47.0); Hemoglobin 12.7 g/dL (12.2-16.2); Lymphocytes # 1.8 K/mm3 (0.7-4.5); Lymphocytes % 21.1 % (10-50); Mean Corpuscular HGB Conc 31.5 g/dL (31.8-35.4); Mean Corpuscular Hemoglobin 32.3 pg (27.0-31.2); Mean Corpuscular Volume 102.6 fl (81-99); Mean Platelet Volume 8.3 fl (7.4-10.4); Monocytes # 0.6 K/mm3 (0.1-1.0); Monocytes % 6.6 % (1.7-9.3); Neutrophils # 6.1 K/mm3 (1.8-7.8); Neutrophils % 70.9 % (37.0-80.0); Platelet Count 269 K/mm3 (142-424); Red Blood Count 3.94 M/mm3 (4.20-5.40); Red Cell Distribution Width 16.7 % (11.5-17.5); White Blood Count 8.6 K/mm3 (4.8-10.8)
[2023-10-25 10:04] LABS: Iron 138 ug/dL (37-170)
[2023-10-25 10:14] LABS: Total Iron Binding Capacity 386 ug/dL (265-497)
[2023-10-25 10:40] LABS: Ferritin 17.3 ng/ml (11.1-264)
== END 2023-10-25 23:59 | disposition home or self-care (01) ==
LOC: LAB 09:04
PROVIDERS: PCP Family Medicine; Visit Provider Internal Medicine Medical Oncology
DX: D50.0 Iron deficiency anemia secondary to blood loss (chronic) (principal)
CPT/HCPCS: 36415; 82728; 83540; 83550; 85025

== ENCOUNTER 2024-02-28 09:27 | Outpatient (CLI) | payer MEDICARE, BC, SELFPAY ==
[2024-02-28 10:09] LABS: Basophils % 0.4 % (0.1-2.0); Eosinophils # 0.1 K/mm3 (0.0-0.4); Eosinophils % 1.5 % (0.1-12.0); Hematocrit 39.1 % (37.0-47.0); Hemoglobin 12.8 g/dL (12.2-16.2); Lymphocytes # 1.5 K/mm3 (0.7-4.5); Lymphocytes % 20.3 % (10-50); Mean Corpuscular HGB Conc 32.7 g/dL (31.8-35.4); Mean Corpuscular Hemoglobin 34.2 pg (27.0-31.2); Mean Corpuscular Volume 104.5 fl (81-99); Mean Platelet Volume 9.7 fl (7.4-10.4); Monocytes # 0.5 K/mm3 (0.1-1.0); Monocytes % 7.4 % (1.7-9.3); Platelet Count 199 K/mm3 (142-424); Red Blood Count 3.74 M/mm3 (4.20-5.40); Red Cell Distribution Width 13.4 % (11.5-17.5); White Blood Count 7.2 K/mm3 (4.8-10.8)
[2024-02-28 11:33] LABS: Iron 96 ug/dL (37-170)
[2024-02-28 11:42] LABS: Total Iron Binding Capacity 394 ug/dL (265-497)
[2024-02-28 12:05] LABS: Ferritin 46.8 ng/ml (11.1-264)
== END 2024-02-28 23:59 | disposition home or self-care (01) ==
LOC: LAB 09:30
PROVIDERS: Visit Provider Internal Medicine Medical Oncology
DX: D50.0 Iron deficiency anemia secondary to blood loss (chronic) (principal)
CPT/HCPCS: 36415; 82728; 83540; 83550; 85025

== ENCOUNTER 2024-03-07 11:19 | Outpatient (CLI) | payer MEDICARE, BC, SELFPAY ==
[2024-03-07 12:42] LABS: Albumin Level 3.6 g/dl (3.5-5.0); Chloride 103 mmol/L (98-107)
[2024-03-07 12:43] LABS: Potassium 3.8 mmoL/L (3.5-5.1); Sodium 134 mmol/L (136-145)
[2024-03-07 12:45] LABS: Alanine Aminotransferase 18 U/L (12-78); Anion Gap 5.8 mEq/L (5-15); Aspartate Amino Transferase 35 U/L (14-36); Bilirubin,Unconjugated 0.3 mg/dL (0.0-1.1); Blood Urea Nitrogen 12 mg/dl (7-17); Carbon Dioxide 29 mmol/L (22.0-30.0); Estimated Glomerular Filt Rate 80 ml/min (>60); GFR (African American) 97 ML/MIN (>60); Total Protein,Serum 6.3 g/dl (6.3-8.2)
[2024-03-07 12:46] LABS: Alkaline Phosphatase 143 U/L (38-126); Bilirubin,Direct 0.1 mg/dl (0.0-0.4); Bilirubin,Indirect 0.3 mg/dL (0.0-0.9); Bilirubin,Total 0.4 mg/dl (0.2-1.3); Calcium 8.7 mg/dl (8.4-10.2); Chol/HDL Ratio 2.6 (1-3.5); Cholesterol 108 mg/dl (140-200); Glucose 102 mg/dl (74-100); HDL Cholesterol 42 mg/dl (40-60); Magnesium 1.9 mg/dl (1.6-2.3); Triglycerides 297 mg/dl (30-150); VLDL Cholesterol 59 mg/dL (0-40)
[2024-03-07 12:58] LABS: Direct LDL Cholesterol 30.59 mg/dL (100-129)
[2024-03-07 13:03] LABS: Triiodothryronine (T3) Uptake 33 % (23.5-40.5)
[2024-03-07 13:04] LABS: Free Thyroxine Index 2.7 ug/dL (5.93-13.13); T4 (Thyroxine) 8.2 ug/dl (5.53-11.0)
[2024-03-07 13:18] LABS: Thyroid Stimulating Hormone 2.37 uIU/mL (0.465-4.68)
== END 2024-03-07 23:59 | disposition home or self-care (01) ==
LOC: LAB 11:22
PROVIDERS: PCP Family Medicine; Visit Provider Physician Assistant
DX: E78.2 Mixed hyperlipidemia (principal); D64.9 Anemia, unspecified; Z86.39 Personal history of other endocrine, nutritional and metabolic disease; I25.118 Atherosclerotic heart disease of native coronary artery with other forms of angina pectoris; I10 Essential (primary) hypertension
CPT/HCPCS: 80048; 80061; 80076; 83735; 84436; 84443; 84479

== ENCOUNTER 2024-03-14 10:46 | Emergency (ER) | payer MEDICARE, BC, SELFPAY ==
[2024-03-14] VITALS (9 sets, daily range): BP systolic 108–138; BP diastolic 41–65; PULSE 63–81; RESP 13–18; TEMP 36.6–36.7; O2SAT 93–100; BMI 30.9
--- NOTE | 2024-03-14 10:52 | ECG_ITS ---
APPROVED REPORT Exam: Resting ECG HR:72 bpm ECG Measurements Heart Rate 72 AXES NV 139 P 68 QRSd 168 QRS 81 QT 474 T 78 QTc 499 Conclusion ELECTRONIC VENTRICULAR PACEMAKER ABNORMAL RHYTHM ECG UNCONFIRMED REPORT Electronically signed by : Sondra Monaco, 03/16/2024 07:09:42
--- NOTE | 2024-03-14 10:55 | CT_ITS ---
FINAL REPORT TECHNIQUE: NASCET technique utilized for stenosis evaluation. CLINICAL HISTORY: trauma, critical injury suspected COMPARISON: 10/20/2021 FINDINGS: RIGHT CAROTID: Dense vascular calcifications are seen at the right carotid bifurcation with 50% stenosis well seen on image 55 of series 9. LEFT CAROTID: Dense vascular calcifications in the left carotid bifurcation with stenosis measuring less than 50%. VERTEBRALS: The vertebrals are patent. The right vertebral artery is dominant. No significant stenosis is present. 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 Reviewed, Interpreted and Dictated by Fran Del Cid MD Transcribed by Jeannette Craig Authenticated and [facility]
--- NOTE | 2024-03-14 10:55 | CT_ITS ---
FINAL REPORT TECHNIQUE: multiple axial CT images were performed from the foramen magnum to the vertex without enhancement. CLINICAL HISTORY: trauma, critical injury suspected COMPARISON: 02/09/2017 FINDINGS: There is mild atrophy with proportional ventriculomegaly. Moderate physiologic calcifications are seen in the basal ganglia. There is no evidence of hemorrhage. No masses are identified. No extra-axial fluid is seen. There is mild mucoperiosteal thickening of the right maxillary sinus. IMPRESSION: Atrophy and chronic changes without acute process. Reviewed, Interpreted and Dictated by Fran Del Cid MD Transcribed by Jeannette Craig Authenticated and [facility]
--- NOTE | 2024-03-14 10:55 | CT_ITS ---
FINAL REPORT TECHNIQUE: Axial images were obtained of the cervical spine by computed tomography. Coronal and sagittal reconstruction process performed. This study was performed with techniques to keep radiation doses as low as reasonably achievable (ALARA). Individualized dose reduction techniques using automated exposure control or adjustment of mA and/or kV according to the patient''s size were employed. CLINICAL HISTORY: trauma, critical injury suspected FINDINGS: There is minimal spondylolisthesis of C3 on 4. There is moderate disc space narrowing at C5-6. Endplate hypertrophy and moderate bilateral neuroforaminal narrowing is seen at C5-6. No acute fracture is identified. The facets are properly aligned. There is mucoperiosteal thickening of the right maxillary sinus. IMPRESSION: Degenerative changes without acute bony abnormality. Reviewed, Interpreted and Dictated by Fran Del Cid MD Transcribed by Leila Olmedo Authenticated and [facility]
--- NOTE | 2024-03-14 10:55 | CT_ITS ---
FINAL REPORT TECHNIQUE: thin section axial CT with and without IV contrast supplemented with multiplanar 3-D reconstruction of the head. This study was performed with techniques to keep radiation doses as low as reasonably achievable, (ALARA)individualized dose reduction techniques using automated exposure control or adjustment of mA and/or kV according to the patient's size were employed. CLINICAL HISTORY: trauma, critical injury suspected COMPARISON: None FINDINGS: CTA: The cranial circulation is unremarkable. There is a normal intracranial branching pattern. There is no significant stenosis, aneurysm or occlusion. IMPRESSION: No acute process. Reviewed, Interpreted and Dictated by Fran Del Cid MD Transcribed by Jeannette Craig Authenticated and [facility]
--- NOTE | 2024-03-14 10:55 | CT_ITS ---
FINAL REPORT TECHNIQUE: Pre-and postcontrast images of the abdomen through the pelvis were performed by computed tomography. Extensive 3-D reconstruction images were performed. A CTA was performed. This study was performed with techniques to keep radiation doses as low as reasonably achievable (ALARA). Individualized dose reduction techniques using automated exposure control or adjustment of mA and/or kV according to the patient's size were employed. CLINICAL HISTORY: trauma, critical injury suspected COMPARISON: None FINDINGS: There is extensive streak artifact arising from fusion hardware bridging the lower lumbar spine. ABDOMEN: Precontrast images demonstrate no evidence of nephrolithiasis. No adrenal masses are identified. The liver, spleen and pancreas are unremarkable. PELVIS: The appendix is not identified. The urinary bladder is unremarkable. There is no significant free fluid or adenopathy. The bony pelvis is unremarkable. No definite fractures identified. CTA: The abdominal aorta is proper caliber. The SMA, celiac axis, and TARA are patent. There is no significant stenosis or calcification. The renal arteries are patent bilaterally. The iliac arteries are patent bilaterally. IMPRESSION: No acute process. Reviewed, Interpreted and Dictated by Fran Del Cid MD Transcribed by Jeannette Craig Authenticated and [facility]
--- NOTE | 2024-03-14 10:55 | CT_ITS ---
FINAL REPORT TECHNIQUE: The patient was injected with IV contrast. Axial images were obtained through the chest in a PE protocol. 3-D reconstruction images were also performed. Individualized dose reduction techniques using automated exposure control or adjustment of the MA and/or KV according to patient's size were employed. CLINICAL HISTORY: trauma, critical injury suspected COMPARISON: 04/20/2023 FINDINGS: There is streak artifact arising from left upper anterior chest wall pacemaker. Mediastinal vasculature is adequately opacified. No pulmonary artery filling defects are identified to suggest PE. There is no aortic dissection. There is no axillary adenopathy. There is no hilar or mediastinal adenopathy. The heart size is normal. Dense coronary artery calcifications are noted. There is no pericardial or pleural effusion. No suspicious infiltrate or nodule is identified. Scarring is noted in the inferior right upper lobe. IMPRESSION: No pulmonary embolus or dissection. Reviewed, Interpreted and Dictated by Fran Del Cid MD Transcribed by Jeannette Craig Authenticated and [facility]
--- NOTE | 2024-03-14 10:55 | CT_ITS ---
FINAL REPORT TECHNIQUE: Axial images were obtained of the thoracic spine by computed tomography. Coronal and sagittal reconstruction process performed. This study was performed with techniques to keep radiation doses as low as reasonably achievable (ALARA). Individualized dose reduction techniques using automated exposure control or adjustment of mA and/or kV according to the patient's size were employed. CLINICAL HISTORY: trauma, critical injury suspected FINDINGS: There is abnormal loss of height of multiple lower thoracic discs. There is endplate sclerosis and moderate anterior osteophyte formation in the mid and lower thoracic spine. No acute fracture is identified. There is no malalignment. The facets are properly aligned. There is a small midline disc protrusion in the lower thoracic spine with mild spinal canal compromise. IMPRESSION: Moderately advanced hypertrophic changes of degenerative disc disease in the mid and lower thoracic spine. Reviewed, Interpreted and Dictated by Fran Del Cid MD Transcribed by Leila Olmedo Authenticated and [facility]
--- NOTE | 2024-03-14 10:55 | CT_ITS ---
FINAL REPORT TECHNIQUE: Axial images were obtained of the lumbar spine by computed tomography. Coronal and sagittal reconstruction process performed. This study was performed with techniques to keep radiation doses as low as reasonably achievable (ALARA). Individualized dose reduction techniques using automated exposure control or adjustment of mA and/or kV according to the patient''s size were employed. CLINICAL HISTORY: trauma, critical injury suspected FINDINGS: There is streak artifact from posterior fusion hardware bridging L3-S2. Kyphoplasty changes are seen involving the L3 vertebra. There is a lumbar scoliosis convex to the right measuring 20 degrees. No acute fracture is identified. There is high-grade right neuroforaminal narrowing at L4-5 and moderate to high-grade L5-S1 neuroforaminal narrowing. There is no malalignment. The facets are properly aligned. IMPRESSION: Multilevel degenerative and postoperative changes without acute fracture. Reviewed, Interpreted and Dictated by Fran Del Cid MD Transcribed by Leila Olmedo Authenticated and [facility]
--- NOTE | 2024-03-14 10:56 | XR_ITS ---
FINAL REPORT CLINICAL HISTORY: trauma COMPARISON: 08/04/2023 FINDINGS: SINGLE VIEW CHEST There is a mild cardiomegaly. Biventricular pacer is identified. The mediastinum is unremarkable. There is mild right perihilar atelectasis. There is no pneumothorax. IMPRESSION: Mild right perihilar atelectasis. Reviewed, Interpreted and Dictated by Fran Del Cid MD Transcribed by Leila Olmedo Authenticated and [facility]
--- NOTE | 2024-03-14 10:56 | XR_ITS ---
FINAL REPORT CLINICAL HISTORY: trauma FINDINGS: PELVIS One view was obtained. There is no fracture or dislocation. The femoral head demonstrates a normal smooth contour. There is posterior fusion hardware bridging the lower lumbar spine and sacrum. IMPRESSION: No acute process. Reviewed, Interpreted and Dictated by Fran Del Cid MD Transcribed by Leila Olmedo Authenticated and [facility]
--- NOTE | 2024-03-14 11:01 | PC.NURSE ---
Daughter at BS
[2024-03-14 11:11] LABS: Basophils % 0.4 % (0.1-2.0); Eosinophils # 0.1 K/mm3 (0.0-0.4); Eosinophils % 0.8 % (0.1-12.0); Hematocrit 43.3 % (37.0-47.0); Hemoglobin 14.2 g/dL (12.2-16.2); Lymphocytes # 1.4 K/mm3 (0.7-4.5); Lymphocytes % 15.4 % (10-50); Mean Corpuscular HGB Conc 32.8 g/dL (31.8-35.4); Mean Corpuscular Hemoglobin 34.5 pg (27.0-31.2); Mean Corpuscular Volume 105.1 fl (81-99); Mean Platelet Volume 9.7 fl (7.4-10.4); Monocytes # 0.5 K/mm3 (0.1-1.0); Monocytes % 5.6 % (1.7-9.3); Neutrophils # 6.9 K/mm3 (1.8-7.8); Neutrophils % 77.2 % (37.0-80.0); Platelet Count 205 K/mm3 (142-424); Red Blood Count 4.12 M/mm3 (4.20-5.40); Red Cell Distribution Width 13.6 % (11.5-17.5); White Blood Count 8.9 K/mm3 (4.8-10.8)
--- NOTE | 2024-03-14 11:12 | PC.NURSE ---
PT ON 2L/NC, SAT 93% ON ROOM AIR. PT DOES NOT WEAR HOME OR, PLACED BY EMS AFTER FENTANYL WAS GIVEN. PT 97% WITH 2L/NC
[2024-03-14 11:20] LABS: Chloride 103 mmol/L (98-107)
[2024-03-14 11:21] LABS: Potassium 3.2 mmoL/L (3.5-5.1); Sodium 144 mmol/L (136-145)
[2024-03-14 11:24] LABS: Alanine Aminotransferase 16 U/L (12-78); Albumin/Globulin Ratio 1.3 (1.1-1.8); Alkaline Phosphatase 128 U/L (38-126); Anion Gap 15.2 mEq/L (5-15); Aspartate Amino Transferase 43 U/L (14-36); Bilirubin,Total 0.3 mg/dl (0.2-1.3); Blood Urea Nitrogen 15 mg/dl (7-17); Calcium 8.2 mg/dl (8.4-10.2); Carbon Dioxide 29 mmol/L (22.0-30.0); Creatinine Clearance Estimated 48 mL/min (50-200); Estimated Glomerular Filt Rate 69 ml/min (>60); GFR (African American) 83 ML/MIN (>60); Globulin 3.2 g/dL (1.3-3.2); Glucose 98 mg/dl (74-100); Total Protein,Serum 7.2 g/dl (6.3-8.2)
[2024-03-14 11:37] LABS: Troponin I < 0.01 ng/ml (0.00-0.034)
--- NOTE | 2024-03-14 11:38 | PC.NURSE ---
PT is going for CT scans.
--- NOTE | 2024-03-14 11:38 | PC.NURSE ---
PT TO RADIOLOGY PER STRETCHER
[2024-03-14 11:46] LABS: Activated Partial Thrombo Time 24.7 seconds (22.5-28.5)
[2024-03-14 11:59] LABS: Free T4 (Free Thyroxine) 0.95 ng/dl (0.78-2.19)
[2024-03-14] MEDS: 0.9 % SODIUM CHLORIDE 50 ML VIAL IV (12:05)
[2024-03-14] MEDS: IOPAMIDOL-370 (76%);100ML BOTTLE 80 ML IV ×2 (12:05→12:18)
[2024-03-14] MEDS: SODIUM CHLORIDE 0.9% 10ML SYR (RAD ONLY) 10 ML IV ×2 (12:05→12:18)
[2024-03-14] MEDS: 0.9 % SODIUM CHLORIDE 50 ML VIAL 40 ML IV (12:17)
--- NOTE | 2024-03-14 12:21 | PC.NURSE ---
Dr. Monaco at BS for update on POC
[2024-03-14 12:24] LABS: HIV Combo NEGATIVE (Negative)
--- NOTE | 2024-03-14 12:27 | HMH.EDGENADL ---
Discharge Plan Disposition Patient Disposition: Home, Self-Care Condition: Good Prescriptions Prescriptions: No Action atorvastatin 40 mg tablet 40 mg PO HS Qty: 90 3RF furosemide [Lasix] 40 mg tablet 80 mg PO BID Qty: 180 3RF budesonide 0.5 mg/2 mL suspension for nebulization 0.5 mg inhalation Q12H Qty: 180 3RF nitroglycerin 0.4 mg tablet, sublingual 0.4 mg sublingual NEEDED PRN (Reason: Chest Pain) Patient Comments: DISSOLVE 1 TABLET UNDER TONGUE DIRECTED NEEDED FOR CHEST PAIN pramipexole 1.5 mg tablet 1.5 mg PO DAILY Patient Comments: TAKE 1 TABLET BY MOUTH AT NIGHT metoprolol succinate 50 mg tablet extended release 24 hr 50 mg PO DAILY Qty: 90 3RF clopidogrel 75 mg tablet 75 mg PO DAILY Qty: 90 3RF escitalopram oxalate 20 MG tablet 20 mg PO DAILY losartan 25 mg tablet 25 mg PO DAILY Referrals Follow up/Referrals: Sebastián Ledesma DO [Primary Care Provider] - See instructions Activity Restrictions/Add. Instructions Additional Instructions/Restrictions: You were evaluated for fall today and no injuries were found. It is unclear exactly what caused you to fall, but there is concern for syncope. If you have the ability, keep track of your blood pressure at home given the new blood pressure medication could be causing your blood pressure to be too low. Take Tylenol every 6 hours for pain as you will be sore over the next few days. Please follow up with your primary care provider in 2-3 days. Please return to ED if your symptoms worsen, change in location, change in severity, new symptoms develop or if you become concerned for your health. Clinical Impressions Clinical Impression: Loss of consciousness Fall Qualifiers: Encounter type: initial encounter Qualified Code(s): W19.XXXA - Unspecified fall, initial encounter Instructions Patient Instructions: How to Prevent Falls Print Language Print Language: Portuguese Discharge ED Provider: Sondra Monaco Adult HPI General Chief complaint: Fall Stated complaint: FALL Time Seen by Provider: 03/14/24 10:47 Mode of Arrival: EMS Source of Information: Patient and EMS Limitations: No Limitations Description of Symptoms (Recalled from ER Triage Doc. by RN): PT BROUGHT VIA EMS FOR FALL. PT REPORTS SHE WAS LETTING HER DOGS OUT THIS AM. UNKNOWN TIME. PT THINKS SHE MAY HAVE PASSED OUT REPORTS RECENT EPISODES OF DIZZINESS PT STATES SHE WOKE IN PRONE POSITION, CRAWLED BACK INTO HOUSE AND USED HER LIFEALERT. PT WITH MULTIPLE BRUISES NOTED TO BILATERAL ARMS AND SKIN TEARS. ABRASION AND BRUISING NOTED ABOVE LEFT EYEBROW. BRUISING NOTED ACROSS CHEST. PT C/O LEFT LOWER BACK PAIN, BETTER AFTER MEDICATION PER EMS . PT ALERT AND ORIENTED, PUPILS EQUAL AND REACTIVE. PLACED IN C-COLLAR UPON ARRIVAL History of Present Illness HPI narrative: Patient is an 83-year-old female presenting after a fall. EMS provided report on arrival due to patient altered mental status. EMS stated that the call was based on a fall after patient experienced outside her home that was preceded by dizziness while she was taking her dogs outside. Patient reportedly used her life alert and then was able to crawl back into her home. Patient has scattered bruising and abrasions. Patient's family and neighbor arrived and noted that patient had recent change to her cardiac medications and that the patient takes blood thinners. Patient had told them that when she took the dogs out it was dark, making concerned that she was out there for a long time before she used her life alert. Related Data Home Medications ?Medication ?Instructions ?Recorded ?Confirmed escitalopram oxalate 20 mg tablet 20 mg PO DAILY 02/24/17 03/14/24 losartan 25 mg tablet 25 mg PO DAILY 04/18/23 03/14/24 nitroglycerin 0.4 mg sublingual 0.4 mg sublingual NEEDED PRN 05/30/23 03/14/24 tablet Chest Pain pramipexole 1.5 mg tablet 1.5 mg PO DAILY parkinson's disease 05/30/23 03/14/24 Previous Rx's ?Medication ?Instructions ?Recorded atorvastatin 40 mg tablet 40 mg PO HS Cholesterol #90 tabs 01/26/23 furosemide 40 mg tablet (Lasix) 80 mg (2 x 40 mg) PO BID Fluid 01/26/23 #180 tabs metoprolol succinate 50 mg 50 mg PO DAILY High blood pressure 11/08/23 tablet,extended release 24 hr #90 tabs budesonide 0.5 mg/2 mL suspension 0.5 mg (2 mL) inhalation Q12H #180 01/03/24 for nebulization mL clopidogrel 75 mg tablet 75 mg PO DAILY #90 tabs 02/06/24 Allergies Allergy/AdvReac Type Severity Reaction Status Date / Time No Known Allergies Allergy Verified 03/14/24 11:17 [facility] Disclaimer: The information contained in this section may have been updated after the patient was seen, as this information can be updated by other users. Medical History Asthma Leg weakness, bilateral Leg pain, bilateral Smoking greater than 30 pack years Pulmonary emphysema HLD (hyperlipidemia) Myopericarditis Elevated troponin Pneumonia Chest wall pain Restrictive lung disease Moderate persistent asthma Hernia Atrial flutter Preoperative clearance Left bundle branch block (LBBB) on electrocardiogram Edema SOB (shortness of breath) Carotid artery stenosis Exertional dyspnea Anemia CAD (coronary artery disease) Recent myocardial infarction (~01/27/17) CHF (congestive heart failure) HTN (hypertension) Surgical History AICD (automatic cardioverter/defibrillator) present Family History Other Cervical cancer Family history of hyperlipidemia Family history of hypertension Family history of multiple sclerosis Family history of myocardial infarction Lung cancer No significant family history Skin cancer Social History Smoking Status: Current every day smoker second hand exposure: No alcohol intake: never counseling provided: none substance use type: denies use current occupational status: retired Travel in the last 8 weeks: None household members: children housing: house current occupation: real estate current occupational exposures/hazards: Yes caffeine: Yes Other Medical History Have you received the Flu Vaccine for this season: No Have you received the Pneumonia Vaccine: Yes ROS Obtained: Yes unobtainable due to mental status Physical Exam General General appearance: alert (Confused) and in no apparent distress Head Head exam: normocephalic, normal inspection and other (Bruising and abrasions) Eye Eye exam: Present normal appearance, PERRL and EOMI ENT ENT exam: Present normal exam, normal oropharynx, mucous membranes moist, TM's normal bilaterally and normal external ear exam Neck Neck exam: Present normal inspection, trachea midline and other (C-collar placed on arrival); Absent meningismus or lymphadenopathy Chest Chest inspection: Present symmetric chest wall rise; Absent normal inspection (Scattered bruising) or tenderness Respiratory Respiratory exam: Present wheezes (Left lung lambert); Absent respiratory distress (2L NC) Cardiovascular Cardiovascular exam: Present regular rate and normal rhythm (V paced); Absent JVD Abdominal Exam Abdominal exam: Present soft, distention and normal bowel sounds; Absent tenderness or guarding Extremities Exam Extremities exam: Present normal inspection, tenderness (Left thigh tenderness) and normal capillary refill; Absent calf tenderness Back Exam Back exam: Present normal inspection and tenderness (Lumbar) Neurological Exam Neurological exam: Present alert and oriented X3 Psychiatric Psychiatric exam: Present normal affect and normal mood Skin Skin exam: Present warm, dry and intact Lymphatic Lymphatic Findings: no adenopathy Medical Decision Making Medical Records Medical records reviewed: Yes I reviewed the patient's medical records. Screening: Per USPSTF and CDC recommendations, given the prevalence of disease in our region, it is our hospital?s policy to screen for HIV and viral Hepatitis for all patients aged 18 and over and those with ongoing risk factors. Chuy Inquiry Pt receiving controlled substance: No Vital Signs: 03/14/24 10:46 03/14/24 11:00 03/14/24 11:30 Temperature 97.9 F Temperature Source Oral Pulse Rate 76 81 Pulse Rate [Apical] 72 Respiratory Rate 16 13 18 Blood Pressure 138/58 L 116/55 L Blood Pressure [Left Arm] 131/65 Blood Pressure Mean [Left Arm] 87 Blood Pressure Source [Left Arm] Automatic Cuff Blood Pressure Position [Left Arm] Supine 02 Sat by Pulse Oximetry 93 L 96 96 Oxygen Delivery Method Room Air Nasal Cannula Oxygen Flow Rate (LPM) 2 03/14/24 12:30 03/14/24 13:00 03/14/24 13:30 Temperature Temperature Source Pulse Rate 75 70 71 Pulse Rate [Apical] Respiratory Rate 17 15 15 Blood Pressure 114/53 L 109/50 L 121/48 L Blood Pressure [Left Arm] Blood Pressure Mean [Left Arm] Blood Pressure Source [Left Arm] Blood Pressure Position [Left Arm] 02 Sat by Pulse Oximetry 98 99 98 Oxygen Delivery Method Room Air Oxygen Flow Rate (LPM) 03/14/24 14:00 03/14/24 14:31 Temperature Temperature Source Pulse Rate 74 70 Pulse Rate [Apical] Respiratory Rate 15 17 Blood Pressure 135/50 L 108/41 L Blood Pressure [Left Arm] Blood Pressure Mean [Left Arm] Blood Pressure Source [Left Arm] Blood Pressure Position [Left Arm] 02 Sat by Pulse Oximetry 100 98 Oxygen Delivery Method Room Air Room Air Oxygen Flow Rate (LPM) Lab Data Lab results reviewed: Yes I reviewed the patient's lab results. Lab Results 03/14/24 10:55: WBC 8.9, RBC 4.12 L, Hgb 14.2, Hct 43.3, MCV 105.1 H, MCH 34.5 H, MCHC 32.8, RDW 13.6, Plt Count 205, MPV 9.7, Neut % (Auto) 77.2, Lymph % (Auto) 15.4, Wood % (Auto) 5.6, Eos % (Auto) 0.8, Baso % (Auto) 0.4, Neut # (Auto) 6.9, Lymph # (Auto) 1.4, Wood # (Auto) 0.5, Eos # (Auto) 0.1, Baso # (Auto) 0.0, PT 10.1, INR 0.91, APTT 24.7, Sodium 144, Potassium 3.2 L, Chloride 103, Carbon Dioxide 29, Anion Gap 15.2 H, BUN 15, Creatinine 0.80, Estimated Creat Clear 48, Estimated GFR 69, Est GFR ( Amer) 83, Glucose 98, Calcium 8.2 L, Total Bilirubin 0.3, AST 43 H, ALT 16, Alkaline Phosphatase 128 H, Troponin I < 0.01, Total Protein 7.2, Albumin 4.0, Globulin 3.2, Albumin/Globulin Ratio 1.3, TSH 2.60, Free T4 0.95, HCV Ab STEVE w/Rflx PCR Qn Negative, HIV Ag/Ab Combo Qual Negative 03/14/24 15:20: Urine Color Yellow, Urine Appearance Clear, Urine pH 5.5, Ur Specific [place] 1.010, Urine Protein Negative, Urine Glucose (UA) Negative, Urine Ketones Negative, Urine Blood Negative, Urine Nitrate Negative, Urine Bilirubin Negative, Urine Urobilinogen 0.2, Ur Leukocyte Esterase Negative 03/14/24 10:55 03/14/24 10:55 Orders (Tests/Meds): ED MEDICATIONS Generic Name Dose Route Start Last Admin Trade Name Freq PRN Reason Stop Dose Admin Sodium Chloride 10 ml 03/14/24 10:55 Sodium Chloride 0.9% 10ml Flush Syringe IV 04/13/24 10:54 NEEDED PRN Maintain IV Site Discontinued Medications Generic Name Dose Route Start Last Admin Trade Name Freq PRN Reason Stop Dose Admin Lactated Ringer's 1,000 mls @ 999 mls/hr 03/14/24 13:22 03/14/24 13:31 Lactated Ringer's 1000 Ml Bag IV 03/14/24 14:22 999 mls/hr .Q1H1M ONE Administration Iopamidol 80 ml 03/14/24 12:03 03/14/24 12:05 Iopamidol-370 (76%);100ml Bottle IV 03/14/24 12:04 80 ml ONCE ONE Administration Iopamidol 80 ml 03/14/24 12:16 03/14/24 12:18 Iopamidol-370 (76%);100ml Bottle IV 03/14/24 12:17 80 ml ONCE ONE Administration Sodium Chloride 50 ml 03/14/24 12:03 03/14/24 12:05 0.9 % Sodium Chloride 50 Ml Vial IV 03/14/24 12:04 50 ml ONCE ONE Administration Sodium Chloride 10 ml 03/14/24 12:03 03/14/24 12:05 Sodium Chloride 0.9% 10ml Syr (Rad Only) IV 03/14/24 12:04 10 ml ONCE ONE Administration Sodium Chloride 40 ml 03/14/24 12:16 03/14/24 12:17 0.9 % Sodium Chloride 50 Ml Vial IV 03/14/24 12:17 40 ml ONCE ONE Administration Sodium Chloride 10 ml 03/14/24 12:16 03/14/24 12:18 Sodium Chloride 0.9% 10ml Syr (Rad Only) IV 03/14/24 12:17 10 ml ONCE ONE Administration ORDERS Category Date Time Status CT angio abdomen pelvis Stat Cat Scan 03/14/24 10:[address] angio chest - dissection Stat Cat Scan 03/14/24 10:[address] angio head Stat Cat Scan 03/14/24 10:[address] angio neck Stat Cat Scan 03/14/24 10:[address] cervical spine wo con Stat Cat Scan 03/14/24 10:[address] head/brain wo con Stat Cat Scan 03/14/24 10:[address] lumbar spine wo con Stat Cat Scan 03/14/24 10:[address] thoracic spine wo con Stat Cat Scan 03/14/24 10:55 Completed XR chest portable Stat Exams 03/14/24 10:56 Completed XR pelvis 1-2V Stat Exams 03/14/24 10:56 Completed Activated Partial Thrombo Time Stat Lab 03/14/24 10:55 Completed Complete Blood Count Auto Diff Stat Lab 03/14/24 10:55 Completed Comprehensive Metabolic Panel Stat Lab 03/14/24 10:55 Completed Free T4 (Free Thyroxine) Stat Lab 03/14/24 10:55 Completed HIV Combo Stat Lab 03/14/24 10:55 Completed Hepatitis C Ab Qual. W/ RFX Stat Lab 03/14/24 10:55 Completed Prothrombin Time INR Stat Lab 03/14/24 10:55 Completed TSH [Thyroid Stimulating Hormone] Stat Lab 03/14/24 10:55 Completed Troponin I Stat Lab 03/14/24 10:55 Completed Urinalysis and Microscopic Stat Lab 03/14/24 15:20 Results ECG Data Tracing #1: Ventricular paced rhythm with rate of 84. QTc prolonged at 499. No significant ST elevation/depression or evidence of acute ischemia Medical Decision Narrative: In summary, this is an 83-year-old female presenting after a fall. On initial arrival, patient confused/intermittently sleeping after EMS gave patient fentanyl and route. Based on patient's appearance, presentation and history of blood thinner use we will perform an extensive evaluation. Differential diagnosis includes but is not limited to, intracranial hemorrhage, spinal fracture, long bone fracture, pneumothorax, syncope, UTI, electrolyte derangement, among others. Full trauma scans and trauma lab evaluation performed as well as EKG. On reevaluation patient, she is back to her neurologic baseline but is unsure of the full events that transpired this morning. Patient states she remembers taking her dogs outside on the back patio to go to the bathroom and then she woke up on the ground. She initially states that she took the dogs out when it was dark. Patient is complaining of generalized pain but denies focal weakness or numbness. Laboratory evaluation negative for leukocytosis, anemia, thrombocytopenia. CMP significant for hypokalemia 3.2. Initial troponin <0.01. Repeat troponin canceled as patient has no complaints of chest pain and there is low concern for ACS at this time. Urinalysis negative for evidence of acute cystitis. Imaging was personally reviewed by me and negative for evidence of skull fracture, intracranial hemorrhage, aneurysm/acute dissection, pneumothorax, spinal fracture or malalignment. Patient c-collar cleared at bedside. Patient able to ambulate to the bathroom without difficulty utilizing a walker, which she utilizes at home as well. Patient has no current complaints aside from generalized muscle soreness. Patient did not have episode of presyncope or significant dizziness with ambulation. Given lack of traumatic injury or severe/actionable laboratory derangements, patient stable for discharge home. I discussed the results with the patient and she felt that she could safely return home. Patient was given strict return precautions and advised to monitor her blood pressure at home given recent increase/change of her antihypertensive medications. There is concerned that patient possibly experienced episode of hypotension that caused a syncopal fall. Patient agreement with this plan. Family friend at bedside able to take patient home as well as check on her. Patient discharged in stable condition. Sondra Monaco MD PGY-3, Emergency Medicine Critical Care Critical Care Time Critical Care Time: No
[2024-03-14 12:32] LABS: Hepatitis C Ab Qual. W/ RFX NEGATIVE (Negative)
--- NOTE | 2024-03-14 12:39 | PC.NURSE ---
new VBG colleted RT notified the sample was sent tot lab
--- NOTE | 2024-03-14 12:39 | PC.NURSE ---
Respiratory swab collected and submitted to lab
--- NOTE | 2024-03-14 12:43 | PC.NURSE ---
ROUNDED ON PT, NO NEEDS AT THIS TIME. CALL LIGHT WITHIN REACH. FAMILY AT BEDSIDE
[2024-03-14 13:31] LABS: INR 0.91 (0.9-1.1); Prothrombin Time 10.1 seconds (9.2-12.1)
[2024-03-14] MEDS: LACTATED RINGERS 1000ML 1,000 ML 999 ML IV (13:31)
--- NOTE | 2024-03-14 13:41 | PC.NURSE ---
PT PLACED ON DWAYNEJENNY
--- NOTE | 2024-03-14 13:50 | PC.NURSE ---
Rounded on PT. PT voices that she does not need anything at this time. Call light is within reach of the PT. Daughter is present at the bedside.
[2024-03-14 15:24] LABS: Microscopic, Urine URINE MICROSCOPIC (MICROSCOPIC)
--- NOTE | 2024-03-14 15:24 | PC.NURSE ---
PT walked to the bathroom with a walker. PT had no issues.
[2024-03-14 15:33] LABS: Appearance,Urine CLEAR (Clear); Bilirubin,Urine Negative (Negative); Blood, Urine Negative (Negative); Color,Urine YELLOW (Yellow); Glucose,Urine (UA) Negative (Negative); Ketones,Urine Negative (Negative); Leukocyte Esterase,Urine Negative (Negative); Nitrate,Urine Negative (Negative); PH,Urine 5.5 (5.0-8.5); Protein,Urine Negative (Negative); Urobilinogen,Urine 0.2 EU/dl (0.2)
[2024-03-14 16:29] LABS: Bacteria,Urine 2+ /lpf; Squamous Epithelial Cell,Urine 20-50 #/hpf (0-5)
== END 2024-03-14 15:58 | disposition home or self-care (01) ==
PROVIDERS: Emergency Provider Student in an Organized Health Care Education/Training Program; PCP Internal Medicine
DX: R55 Syncope and collapse (principal); M54.50 Low back pain, unspecified; R41.82 Altered mental status, unspecified; R42 Dizziness and giddiness; Z72.0 Tobacco use; W18.30XA Fall on same level, unspecified, initial encounter; Y93.89 Activity, other specified; Y92.007 Garden or yard of unspecified non-institutional (private) residence as the place of occurrence of the external cause
CPT/HCPCS: 70450; 70496; 70498; 71045; 71275; 72125; 72128; 72131; 72170; 74174; 80053; 81001; 84439; 84443; 84484; 85025; 85610; 85730; 86803; 87086; 87389; 93005; 96360; 99285; J7120; Q9967

== ENCOUNTER 2024-07-17 14:14 | Outpatient (CLI) | payer MEDICARE, BC, SELFPAY ==
[2024-07-17 16:49] LABS: Basophils % 0.3 % (0.1-2.0); Eosinophils # 0.1 Kmm3 (0.0-0.4); Eosinophils % 0.5 % (0.1-12.0); Hematocrit 40.4 % (37.0-47.0); Hemoglobin 13.4 g/dL (12.2-16.2); Immature Granulocytes # 0.03 10^3uL; Immature Granulocytes % 0.3 %; Lymphocytes # 1.5 K/mm3 (0.7-4.5); Lymphocytes % 15.6 % (10-50); Mean Corpuscular HGB Conc 33.2 g/dL (31.8-35.4); Mean Corpuscular Hemoglobin 33.8 pg (27.0-31.2); Monocytes # 0.7 K/mm3 (0.1-1.0); Neutrophils % 75.3 % (37.0-80.0); Nucleated Red Blood Cells # 0 10^3/uL; Nucleated Red Blood Cells % 0 %; Platelet Count 252 K/mm3 (142-424); Red Blood Count 3.96 M/mm3 (4.20-5.40); Red Cell Distribution Width 13.2 % (11.5-17.5); Red Cell Distribution Width-SD 49.6 fL; White Blood Count 9.3 K/mm3 (4.8-10.8)
[2024-07-17 17:24] LABS: Alanine Aminotransferase 18 U/L (12-78); Albumin Level 3.7 g/dl (3.5-5.0); Albumin/Globulin Ratio 1.2 (1.1-1.8); Alkaline Phosphatase 136 U/L (38-126); Anion Gap 13.6 mEq/L (5-15); Aspartate Amino Transferase 33 U/L (14-36); Bilirubin,Total 0.8 mg/dl (0.2-1.3); Blood Urea Nitrogen 18 mg/dl (7-17); Calcium 8.9 mg/dl (8.4-10.2); Carbon Dioxide 29 mmol/L (22.0-30.0); Chloride 101 mmol/L (98-107); Estimated Glomerular Filt Rate 69 ml/min (>60); GFR (African American) 83 ML/MIN (>60); Glucose 93 mg/dl (74-100); Potassium 3.6 mmoL/L (3.5-5.1); Sodium 140 mmol/L (136-145); Total Protein,Serum 6.7 g/dl (6.3-8.2)
[2024-07-17 18:14] LABS: Vitamin B12 > 1000 pg/mL (239-931)
== END 2024-07-17 23:59 | disposition home or self-care (01) ==
LOC: LAB.DROPOF 07-18 10:48
PROVIDERS: PCP Internal Medicine; Visit Provider Internal Medicine
DX: D53.9 Nutritional anemia, unspecified (principal); D51.9 Vitamin B12 deficiency anemia, unspecified; E87.6 Hypokalemia; E83.51 Hypocalcemia; R74.01 Elevation of levels of liver transaminase levels
CPT/HCPCS: 36415; 80053; 82607; 85025

== ENCOUNTER 2024-07-31 08:35 | Outpatient (CLI) | payer MEDICARE, BC, SELFPAY ==
--- OUTSIDE RECORDS SUMMARY | 2024-07-31 08:41 | XMS_ITS | Encounter Summary ---
Author Organization [employer] Address [address] [place] [address] Care Team Providers Care Winding Inspector And Tester Name Role Phone Unavailable Primary Care Provider Kaylyn dejesus Encounter Details Date Type Department Care Team (Late st Contact Info) Description 07/26/2019 Transcribed Document [facility] [place] [facility] [place] [address] ProviderIrasema MD [facility] [place] [address] Social History Tobacco Use Types Packs/Day Years Used Date Smoking Tobacco: Never Assessed Comments Unknown Sex and Gender Information Value Date Recorded Sex Assigned at Female 08/11/2021 8:42 PM CDT Legal Sex Female 8:42 PM CDT Gender Identity Female 08/11/2021 8:42 PM CDT Sexual Orientation Not on file documented as of this encounter Miscellaneous Notes * Cerner Conversion Note - Irasema ProviderMD - 07/26/2019 2:29 PM CDT Treatment Intervention, OT Entered On: 07/27/2019 12:57 EDT Performed On: 07/27/2019 9:48 EDT by TESFAYE MARES, OTR/L General Information, OT Visit Type, OT : Treatment Note Patient Orders : Order Date Order Ordering 07/25/2019 14:14 Occupational Therapy Evaluation and Treatme Ordered By: GRETA SOTOMAYOR MD-SNU 07/26/2019 14:29 OT Additional Treatment Ordered By: Active Diagnoses : 07/27/2019 12:00 Radiculopathy, lumbar region Therapy Diagnosis, OT : Decreased independence in ADLs due to weakness Admission Date : 07/25/2019 06:54 Co-treated by, OT : events and promotions assistant (BEET FLUMER) Personal Devices : Personal Devices No Devices Recorded Assistive Devices : Assistive Devices No Devices Recorded Precautions in Place : Fall prevention measures, Spinal Precautions TESFAYE MARES, OTR/L - 07/27/2019 12:45 EDT General Status Patient Received Status : Up in chair Treatment Start Time : 07/27/2019 9:16 EDT Patient Left Status : Up in chair, RN/PCT informed, All needs met and within reach RN/PCT Informed Comment : MARLY De La O Treatment End Time : 07/27/2019 9:48 EDT Treatment Time : 32 Minute(s) TESFAYE MARES, OTR/L - 07/27/2019 12:45 EDT Self Care/Home Management, OT Upper Body Dressing Assist Level, OT : Assist, maximal Toileting Assist Level : Assist, maximal Toilet Transfer Assist Level : Supervision or set-up TESFAYE MARES OTR/L - 07/27/2019 12:45 EDT Functional Mobility Mobility Grid Sit to Stand : Supervision/set-up Stand to Sit : Supervision/set-up TESFAYE MARES OTR/L - 07/27/2019 12:45 EDT Sit to Stand Device : Belt, gait, Walker, front wheel Stand to Sit Device : Belt, gait, Walker, front wheel TESFAYE MARES, OTR/L - 07/27/2019 12:45 EDT Plan of Care, OT OT Tx Plan/Goals Established w Patient : Yes TESFAYE MARES, OTR/L - 07/27/2019 12:45 EDT Postal Superintendent Goals, OT Grooming LTG Grid Goal #1 Activity : Grooming Assist : Independent, modified Date to Meet : 08/09/2019 EDT Goal Status : Initial goal TESFAYE MARES, OTR/L - 07/27/2019 12:45 EDT Dressing, Upper Body LTG Grid Goal #1 Assist : Independent, modified Date to Meet : 08/09/2019 EDT Goal Status : Initial goal TESFAYE MARES, OTR/L - 07/27/2019 12:45 EDT Dressing, Lower Body LTG Grid Goal #1 Activity : Dressing, Lower Body Assist : Independent, modified Date to Meet : 08/09/2019 EDT Goal Status : Initial goal TESFAYE MARES OTR/L - 07/27/2019 12:45 EDT Toilet Transfer LTG Grid Goal #1 Activity : Toilet Transfer, Ambulatory Assist : Independent, modified Date to Meet : 08/09/2019 EDT Goal Status : Progressing, continue TESFAYE MARESCECILIA/Seven - 07/27/2019 12:45 EDT Bed Mobility/ Bed Transfer LTG Grid Goal #1 Activity : Bed Mobility/Bed Transfer Assist : Independent, modified Date to Meet : 08/09/2019 EDT Goal Status : Initial goal NAOMYMAXIMILIANOJENNIFERLAKSHMICECILIA MASTERS/Seven - 07/27/2019 12:45 EDT Treatment Note Subjective Comment : Pt and RN okay'd OT tx at this time Patient's Response to Treatment : Pt tolerated OT tx well Additional Objective Information : Pt sitting up in chair upon OT arrival. Pt stood with RWx and supervision. Pt donned back brace with Max A. Pt walked 140ft with RWx and supervision. Pt returned to room and completed toilet transfer with supervision. Pt completed toileting task with Max A for hygiene/ antwon care. Pt stood from toilet with RWx and supervision. Pt walked 15ft back to chair and sat with supervision. Pt left sitting up in chair with call light/phone within reach. Assessment : Pt would continue to benefit from skilled OT services to improve fxnl status. Plan for Treatment : Continue with pt's POC per pt tolerance. TESFAYE MARES OTR/Seven - 07/27/2019 12:45 EDT Pain Assessment Pain Scaled Used : 0-10 Pain scale Pain Score Pre-Intervention : 0 TESFAYE MARES OTR/Seven - 07/27/2019 12:45 EDT Image 1 - Images currently included in the form version of this document have not been included in the text rendition version of the form. [place] OT Charges OT Selfcare/Hm Mgmt Ea 15 Min : 1 OT Ther Activities Ea 15 Min : 1 TESFAYE MARES OTR/Seven - 07/27/2019 12:45 EDT Electronically signed by Wally Lockett Conversion Senior Information Security Analyst Cerner at 06/02/2022 2:03 PM CDT documented in this encounter Plan of Treatment Not on file documented as of this encounter Visit Diagnoses Not on filedocumented in this encounter
--- OUTSIDE RECORDS SUMMARY | 2024-07-31 08:41 | XMS_ITS | Encounter Summary ---
Author Organization [employer] Address [address] [place] [address] Care Team Providers Care Home Help Aide Name Role Phone Unavailable Primary Care Provider Unavailabl e Encounter Details Date Type Department Care Team (Late st Contact Info) Description 07/25/2019 Transcribed Document [facility] [place] [facility] [place] [address] ProviderIrasema MD [facility] [place] [address] Social History Tobacco Use Types [...] Cerner Conversion Note - Irasema ProviderMD - 07/25/2019 12:07 PM CDT [facility] Main OR PACU Summary Primary Physician: GRETA SOTOMAYOR MD-[facility] Finalized Date/Time: 07/25/19 17:09:16 Pt. Name: GUILLERMINA PEARCE D.O.B./Sex: 1940 Female Med Rec #: [id number] Physician: GRETA SOTOMAYOR MD-SN Financial #: [id number] Pt. Type: I Room/Bed: 2/1 Admit/Disch: 07/25/19 06:54:00 - Institution: [facility] Main OR PACU I Case Times Entry 1 In PACU I 07/25/19 14:40:00 Ready for PACU 07/25/19 15:38:00 Discharge Discharge from PACU 07/25/19 16:05:00 I Last Modified By: Ml Wilburn RN 07/25/19 17:08:[address] [facility] Main OR PACU I Case Times Audit 07/25/19 17:08:34 Substation Superintendent: [email or web address] Modifier: [email or web address] <+> 1 Discharge from PACU I Finalized By: Ml Wilburn RN Document Signatures Signed By: Ml Wilburn RN 07/25/19 17:09 Electronically signed by [facility] Conversion Vacuum Drum Drier Operator Cerner at 06/02/2022 1:47 PM CDT documented in this encounter Plan of Treatment Not on file documented as of this encounter Visit Diagnoses Not on filedocumented in this encounter
--- OUTSIDE RECORDS SUMMARY | 2024-07-31 08:41 | XMS_ITS | Encounter Summary ---
Author Organization [employer] In [employer] Address [address] [place] [address] Care Team Providers Care Valve Grinder Name Role Phone Unavailable Primary Care Provider Unavailabl e Encounter Details Date Type Department Care Team (Late st Contact Info) Description 07/27/2019 Transcribed Document [facility] [place] [facility] [address] ProviderIrasema [place] [address] Social History Tobacco Use Types [...] Cerner Conversion Note - Irasema ProviderMD - 07/27/2019 4:34 PM CDT Final Discharge Planning Entered On: 07/27/2019 16:37 EDT Performed On: 07/27/2019 16:34 EDT by PERFECTO DONALDSON RN-Head Of English Final Discharge Planning Discharge Arrangements : Patient Post-Acute Information Patient Name: GUILLERMINA PEARCE Gender: Female : 42 Age: 78 Years No Post-Acute Placement(s) Listed No Post-Acute Service(s) Listed No Curaspan Referral(s) Listed Patient Offered Choice/Affiliations Explained : Yes Designation of Choice Signed : Yes Important Medicare Message Reviewed With : Other: <72hrs Transportation Needs : Family/Friend Follow Up Appointment Scheduled : Yes Is Patient High/Moderate Readmission Risk? : No Patient/Family Notified of Plan : Yes Support Person/Pt Rep Notified of Plan : Yes Is Patient Ready for Discharge? : Yes Physician Notified Patient is Ready for Discharge? : Yes Discharge To Care Management : Home Health Services (Related/SOC within 3 days)-06 PERFECTO DONALDSON, RN-Head Of English - 07/27/2019 16:34 EDT Final Narrative Note Final Narrative Note : DC orders noted. Met with pt and son at bedside to discuss DCP. They agree to HH and have no RELIGIOUS HEALER preference. Referral sent to [facility] via [employer] and confirmed acceptance with [place] in intake. No other CM needs identified. PERFECTO DONALDSON RN-Head Of English - 07/27/2019 16:34 EDT documented in this encounter Plan of Treatment Not on file documented as of this encounter Visit Diagnoses Not on filedocumented in this encounter
--- OUTSIDE RECORDS SUMMARY | 2024-07-31 08:41 | XMS_ITS | Encounter Summary ---
Author Organization [facility] [employer] i[employer] Address [address] [place] [address] Care Team Providers Care Golf Course Starter Name Role Phone Unavailable Primary Care Provider Unavailabl e Encounter Details Date Type Department Care Team (Late st Contact Info) Description 07/19/2019 Transcribed Document [facility] Family Medicine [facility] [place] [address] ProviderIrasema MD [place] [address] Social History Tobacco Use Types Packs/Day Years Used Date Smoking Tobacco: Never Assessed Comments Unknown Sex and Gender Information Value Date Recorded Sex Assigned at Female 08/11/2021 8:42 PM CDT Legal Sex Female 8:42 PM CDT Gender Identity Female 08/11/2021 8:42 PM CDT Sexual Orientation Not on file documented as of this encounter Miscellaneous Notes * Cerner Conversion Note - Historical ProviderMD - 07/19/2019 12:59 PM CDT PAT Adult Entered On: 07/19/2019 13:19 EDT Performed On: 07/19/2019 12:59 EDT by MARY ANN CALVERT RN Vital Measurements Temperature Source : Oral Temperature Mode : FahrenhMARY ANN King RN - 07/19/2019 12:59 EDT Height and Weight, Clinical Dosing Height Source : Measured Height Entry Format : [place] Height, Feet : 5 ft(Converted to: 152 cm, 60 Inch) Height, Inches : 0 Inch(Converted to: 0 ft 0 Inch, 0.00 cm) Clinical Height : 152.4 cm Weight Source : Standing scale Weight Entry Format : [place] Clinical Dosing Weight : 69.74 kg Weight, Pounds : 153 lb Weight, Ounces : 7 oz Body Surface Area (BSA) : 1.67 m2 Body Mass Index : 30 kg/m2 (HI) [place] Body Weight : 45 kg MARY ANN CALVERT RN - 07/19/2019 12:59 EDT Health Histories Smoking Status : 10 or more cigarettes (1/2 pack or more)/day in last 30 days Smokeless Tobacco Status : Never Desires Tobacco Cessation Medication : No Reason for No Tobacco Cessation Medication : Refuses FDA approved medications MARY ANN CALVERT RN - 07/19/2019 12:59 EDT Social History (As Of: 07/19/2019 13:19:39 EDT) Tobacco: 10 or more cigarettes (1/2 pack or more)/day in last 30 days Smoking Status. Never Smokeless Tobacco Status. None Smokeless Tobacco Use History. Years of Use: 30. Packs/Tins Daily: 0.75. (Last Updated: 07/19/2019 13:01:26 EDT by MARY ANN CALVERT, RN) Alcohol: Alcohol Use History Yes. Days/Week: 7. # Drinks/Day: 2. Total Drinks/Week: 14. (Last Updated: 07/19/2019 13:02:11 EDT by MARY ANN CALVERT, RN) Substance Abuse: Drug Use Hx: No. Use in Last 12 Months: No. (Last Updated: 07/19/2019 13:02:35 EDT by MARY ANN CALVERT, RN) Home/Environment: Lives with Children. Living situation: Home/Independent. Home equipment: Walker/Cane. (Last Updated: 07/19/2019 13:03:17 EDT by MARY ANN CALVERT, RN) Infectious Disease History Has the patient ever been tested for COVID-19? : No, Patient stated COVID19 Screening : No Experiencing Infectious Disease Symptoms : No symptoms Physical contact outside [place] in the last 30 days : No Infectious Disease Symptoms Score : 0 Infectious Disease History : None Tuberculosis Symptoms : None MARY ANN CALVERT RN - 07/19/2019 12:59 EDT COVID19 PreProcedure Screening Has patient been isolated since the test : Yes Exposed to COVID19 symptoms since test? : No Fanny Inman RN - 07/25/2019 10:21 EDT Is this an Emergent or Add on Procedure? : No MARY ANN CALVERT RN - 07/19/2019 12:59 EDT Anesthesia/Transfusion History Family History of Anesthesia Reaction : Prior transfusion without reaction Blood Transfusion Acceptable to Patient : Yes Transfusion History : Prior anesthesia without reaction Family History of Anesthesia Reaction : None MARY ANN CALVERT RN - 07/19/2019 12:59 EDT Functional Assessment Functional ADL Evaluation Index EBN Bathing : Independent (2) Dressing : Independent (2) Toileting : Independent (2) Transferring Bed or Chair : Independent (2) Continence : Independent (2) Feeding : Independent (2) MARY ANN CALVERT RN - 07/19/2019 12:59 EDT ADL Index Score : 12 MARY ANN CALVERT RN - 07/19/2019 12:59 EDT Advance Directive Copy Advance Directive Verified/on Chart : Yes Fanny Inman RN - 07/25/2019 10:21 EDT Patient has Advance Directive *Q : Yes, Advance Directive with the patient Advance Directive Type : Other: general power of claims attorney MARY ANN CALVERT RN - 07/19/2019 12:59 EDT Spiritual/Cultural Needs Any Spiritual/Cultural Needs or Requests : Yes Spiritual/Cultural Needs Comment : surgery on TueJuly 24 in at 0930 am Spiritual/Cult Concerns/Desires/Needs : Prayer Spiritual/Cultural Needs Comment : surgery on TueJuly 24 in at 0930 am MARY ANN CALVERT RN - 07/19/2019 12:59 EDT [place] Suicide Severity Rating Scale (C-SSRS) CSSRS Past Month Wish to be : No CSSRS Past Month Suicidal Thoughts : No CSSRS Lifetime Suicide Behavior : No Suicide Severity Rating Score : 0 Suicide Severity Rating : No Additional Care Required at this time MARY ANN CALVERT RN - 07/19/2019 12:59 EDT Psychosocial History Currently in Unsafe Situation : No MARY ANN CALVERT RN - 07/19/2019 12:59 EDT General Info Preferred Name : Fanny Mandel RN - 07/25/2019 10:21 EDT Arrived From : Home Mode of Arrival on Unit : Ambulatory Legal Guardian : Son Support Person/Patient Window Repairer : Yes Support Person/Pt Rep Name : Patricio Angel son Support Person/Pt Rep Contact Information : [phone] Want Family/Rep/Phys Notified of Admit : No Emergency Contact #1 : Patricio angel Emergency Contact #1 Emergency Contact #1 Relationship : son Emergency Contact #2 : na Emergency Contact #2 Phone Number : nan Emergency Contact #2 Relationship : na` Information Obtained From : Patient Primary Language : Russian Preferred Communication Mode : Verbal Communication Barrier : None Objects to Sharing Info w Family : No MARY ANN CALVERT RN - 07/19/2019 12:59 EDT Noble Scale Noble Sensory Perception : Slightly limited Noble Moisture : Rarely moist Noble Activity : Walks occasionally Noble Mobility : Slightly limited Noble Nutrition : Adequate Noble Friction and Shear : Potential problem Noble Score : 18 MARY ANN CALVERT RN - 07/19/2019 12:59 EDT Sleep Apnea Risk Assmt Hx of Obstructive Sleep Apnea Diagnosis : No Snore Loudly : Yes Tired, Fatigued, or Sleepy During Day : No Observed Stopping Breathing During Sleep : No Have/Are Being Treated for Hypertension : Yes BMI Greater Than 35 kg/m2 : No Age over 50 Years Old : Yes Neck Circumference Greater Than 40 cm : No Gender Male : No STOP-BANG Sleep Apnea Risk Level Score : 3 MARY ANN CALVERT RN - 07/19/2019 12:59 EDT documented in this encounter Plan of Treatment Not on file documented as of this encounter Visit Diagnoses Not on filedocumented in this encounter
--- OUTSIDE RECORDS SUMMARY | 2024-07-31 08:41 | XMS_ITS | Encounter Summary ---
Author Organization [employer] Address [address] [place] [address] Care Team Providers Care Scientist Engineer Name Role Phone Unavailable Primary Care Provider Unavailabl e Encounter Details Date Type Department Care Team (Late st Contact Info) Description 07/27/2019 Transcribed Document [facility] [place] [facility] [place] [address] ProviderIrasema MD [facility] [place] [address] Social History Tobacco Use Types [...] Irasema ProviderMD - 07/27/2019 4:34 PM CDT On Going Discharge Planning Entered On: 07/27/2019 16:34 EDT Performed On: 07/27/2019 16:34 EDT by PERFECTO DONALDSON RN-High School Football CoachPower And Recovery Shift Engineer Progress Note Discharge Arrangements : Patient Post-Acute Information Patient Name: GUILLERMINA PEARCE Gender: Female : 42 Age: 78 Years No Post-Acute Placement(s) Listed No Post-Acute Service(s) Listed No Curaspan Referral(s) Listed Discharge Options Discussed with Patient : Discharge transportation, DME, Home Health, Short term rehabilitation Barriers to Discharge Unresolved : All resolved Designation of Choice Signed : Yes Patient Offered Choice/Affiliations Explained : Yes List/Info Provided Pt/Fam/Support Person : Home health Were Referrals Sent to Post Acute Providers : Yes Does the Patient have a Floor to SNF Benefit? : Yes Physician Agreeable to Move Forward with D/C Plan? : Yes PERFECTO DONALDSON RN-High School Football Coach - 07/27/2019 16:34 EDT documented in this encounter Plan of Treatment Not on file documented as of this encounter Visit Diagnoses Not on filedocumented in this encounter
--- OUTSIDE RECORDS SUMMARY | 2024-07-31 08:41 | XMS_ITS | Encounter Summary ---
Author Organization [employer] Address [address] [place] [address] Care Team Providers Care Tip Out Worker Name Role Phone Unavailable Primary Care Provider Unavailabl e Encounter Details Date Type Department Care Team (Late st Contact Info) Description 07/26/2019 Transcribed Document [facility] [place] Family Medicine [address] [place] [address] ProviderIrasema MD [address] [place] [address] Social History Tobacco Use Types [...] Cerner Conversion Note - Historical ProviderMD - 07/26/2019 12:01 PM CDT UM Authorization Entered On: 07/26/2019 12:01 EDT Performed On: 07/26/2019 12:01 EDT by Addie Ricci Rn-Utilization Review Primary Insurance Authorization Authorization and Policy Numbers : Insurance 1 Health Plan: MEDICARE Policy Number: [id number] Authorization Number: Insurance 2 Health Plan: [facility] Policy Number: [id number] Authorization Number: Insurance Primary Name : Medicare Authorized Service Begin Date-Primary : 07/25/2019 EDT Historical Authorization Comments-Primary : Comment 1: Pt is scheduled for INPT Lumbar Fusiion Posterior 3 Level Intrathecal Pain Pump replace/revise on 07-25-2019 Medicare: NPR (SANNA MARRERO, Video Control Engineer 07/24/2019 14:59) Addie Ricci Rn-Utilization Review - 07/26/2019 12:01 EDT documented in this encounter Plan of Treatment Not on file documented as of this encounter Visit Diagnoses Not on filedocumented in this encounter
--- OUTSIDE RECORDS SUMMARY | 2024-07-31 08:41 | XMS_ITS | Encounter Summary ---
Author Organization [employer] Address [address] [place] [address] Care Team Providers Care Coach Wirer Name Role Phone Unavailable Primary Care Provider Unavailabl e Encounter Details Date Type Department Care Team (Late st Contact Info) Description 06/25/2019 Transcribed Document [facility] [place] [facility] [place] [address] ProviderIrasema MD [facility] [place] [address] Social History Tobacco Use Types [...] Cerner Conversion Note - Historical ProviderMD - 06/25/2019 1:38 PM CDT Nursing Discharge Summary Entered On: 06/25/2019 13:38 EDT Performed On: 06/25/2019 13:38 EDT by KALYAN HASSAN, bead preparer Documentation Discharge Date/Time : 06/25/2019 14:45 EDT KALYAN HASSAN, RN - 06/25/2019 14:53 EDT Patient Disposition, General : Discharge Discharge To : Home with ambulatory/outpatient follow-up Mode Of Departure, General Discharge : Private vehicle Accompanied By, Discharge : Friend IV Discontinued : Not applicable Personal Belongings With Patient : Yes Pt's Own Supply of Medications Returned : No patient supply of medications to return Prescriptions Given to Patient : No Discharge Instructions Reviewed With, Opportunity For Questions Given : Patient Patient Education Completed : Yes Teaching Method : Demonstration, Explanation Teaching Evaluation : Returns demonstration, Verbalizes understanding KALYAN HASSAN, RN - 06/25/2019 13:38 EDT Electronically signed by Levy [facility] Conversion Travelift Operator Cerner at 06/02/2022 1:57 PM CDT documented in this encounter Plan of Treatment Not on file documented as of this encounter Visit Diagnoses Not on filedocumented in this encounter
--- OUTSIDE RECORDS SUMMARY | 2024-07-31 08:41 | XMS_ITS | Encounter Summary ---
Author Organization [employer] [facility] Address [address] [place] [id number] Care Team Providers Care Certified Pharmacy Technician Name Role Phone Unavailable Primary Care Provider Unavailabl e Encounter Details Date Type Department Care Team (Late st Contact Info) Description 06/25/2019 Transcribed Document [facility] [place] [address] ProviderIrasema MD [facility] [place] [address] Social History Tobacco Use Types [...] Cerner Conversion Note - Irasema ProviderMD - 06/25/2019 2:31 PM CDT [facility] [place] [address] GUILLERMINA HINOJOSA :1940 Visit Time:06/25/2019 Your Visit Summary Your Care Team Admitting Physician - GRETA SOTOMAYOR MD-SNU Attending Physician - GRETA SOTOMAYOR MD-SNU Primary Care Physician - ELISEO VALENCIA MD-[facility] Referring Physician - GRETA SOTOMAYOR MD-SNU Your Diagnosis Chronic pain syndrome, Chronic pain syndrome Discharge Vitals Heart Rate (Monitored) 78 Respiratory Rate 20 Blood Pressure 97/57 What to do next Follow-Up Appointments Follow Up with GRETA SOTOMAYOR MD-SNU When Within 2 to 3 days Where: [address] [facility] [address] [place] [address]- Medications What How Much When Instructions Next Dose atorvastatin 40 Milligram(s) Oral Every Day biotin (Hair, Skin & Nails) 3 tabs Oral Every Day clopidogrel (Plavix) 75 Milligram(s) Oral Every Day escitalopram 20 Milligram(s) Oral Every Day furosemide (Lasix) 40 Milligram(s) Oral Three Times A Day as needed for Edema losartan 25 Milligram(s) Oral Every Day metoprolol (Metoprolol Succinate ER) 25 Milligram(s) Oral Every Day multivitamin (B-Complex with B-12) 1 Tablet(s) SubLINgual Every Day pantoprazole 40 Milligram(s) Oral Every Day potassium gluconate (potassium gluconate 595 mg (99 mg elemental potassium) oral tablet) 2 Tablet(s) Oral Every Day pramipexole 2 Milligram(s) Oral At Bedtime spironolactone 25 Milligram(s) Oral Every Day Take your medications faithfully. Do NOT skip medication. Do NOT stop taking medications without the direction of a physician. Carry a list of your medications with you at all times, and take this medication list with you to your first follow up visit. Report any side effects. Avoid herbal remedies unless discussed with your physician. As part of your treatment plan, your physician may have prescribed a limited course of a controlled substance. This medication may be given to help people with moderate or severe pain or for other medical conditions, but there are risks involved with treatment. Common side effects may include nausea, constipation, drowsiness, sweating, itching, dry mouth, and rash. More serious side effects may include cognitive and motor impairment, like problems with thinking, concentrating, alertness, and movement (e.g. slowed reflexes), and driving and operating heavy machinery can be dangerous. It is important for you to talk to your physician if you have these side effects or questions. These controlled substances can produce physical dependence and be habit-forming if taken for an extended period of time, which means that the body has gotten used to them and may experience withdrawal symptoms if they are abruptly stopped. Withdrawal symptoms can include runny nose, sweating, goose bumps, diarrhea, abdominal cramping, rapid heartbeat, difficulty sleeping, and nervousness. Please dispose of unused and medications per your retail pharmacy guidance. Allergies No Known Allergies Immunizations This Visit No Immunizations Found Education Materials Myelogram A myelogram is an imaging study of your spinal cord and the places where nerves attach to your spinal cord (nerve roots). A dye (contrast material) is injected into your spine before the x-ray to provide a clearer image for your health care provider to see. You may need this study done if you have a spinal cord problem that cannot be diagnosed with other imaging studies, such as CT scan or MRI. You may also have this study to check your spine after surgery. Tell a health care provider about: ??? Any allergies you have, especially to iodine. ??? All medicines you are taking, including vitamins, herbs, eye drops, creams, and tpdo-dkp-ivzawfm medicines. ??? Previous problems you or members of your family have had with the use of anesthetics or contrast media. ??? Any blood disorders you have. ??? Any surgeries you have had. ??? Any medical conditions you have, including asthma. ??? Whether you are or may be . What are the risks? Generally, this is a safe procedure. However, problems may occur, including: ??? Infection. ??? Bleeding. ??? Allergic reaction to the contrast material. ??? Damage to your spinal cord or nerve roots. ??? Loss or leaking of spinal fluid. This can lead to a headache. ??? Seizures. This is rare. What happens before the procedure? Follow instructions from your health care provider about eating or drinking restrictions. You may be asked to drink more fluids. ??? Ask your health care provider about changing or stopping your regular medicines. This is especially important if you are taking diabetes medicines or blood thinners. ??? Plan to have someone take you home after the procedure. ??? If you will be going home right after the procedure, plan to have someone with you for 24 hours. What happens during the procedure? You will lie face down on a table. ??? Your health care provider will locate the best injection site on your spine. This is most often in the lower back. ??? The area of injection will be washed with soap. ??? You will be given a medicine to numb the area (local anesthetic). ??? Your health care provider will insert a long needle into the space around your spinal cord (subarachnoid space). ??? A sample of spinal fluid may be taken and sent to the laboratory for testing. ??? The contrast material will be injected into the subarachnoid space. ??? The exam table may be tilted to help the contrast material flow up or down your spine. ??? The x-ray will take images of your spinal cord for your health care provider to examine. ??? A bandage (dressing) may be placed over the injection site. The procedure may vary among health care providers and hospitals. What happens after the procedure? Your blood pressure, heart rate, breathing rate, and blood oxygen level may be monitored often until the medicines you were given have worn off. ??? Lie flat with your head raised (elevated). This reduces the risk of headache. ??? It is your responsibility to get the results of your procedure. Ask your health care provider or the department performing the procedure when your results will be ready. This information is not intended to replace advice given to you by your health care provider. Make sure you discuss any questions you have with your health care provider. Document Released: 09/23/2004 Document Revised: 06/15/2016 Document Reviewed: 11/13/2015 [employer] Interactive Patient Education ?? 2019 [employer] Spinal Headache A spinal headache is a severe headache that can happen after a person has had a lumbar puncture or epidural anesthesia. During these procedures, a needle is passed between the bones of the spine. The headache usually starts from a few hours to 1???2 days after that. The headache can last for a few days. In rare cases, it can last for more than a week. What are the causes? This condition is caused by a leak of spinal fluid from the spine through the hole that is left by the needle. What are the signs or symptoms? Symptoms of this condition include: ??? A severe headache. ??? A headache that is worse when you sit or stand and better when you lie down. ??? Neck pain and stiffness, especially when tilting your chin toward your chest. ??? Nausea and vomiting. How is this diagnosed? This condition is usually diagnosed based on: ??? Your medical history. ??? Your symptoms. ??? A CT scan or MRI of the brain to help rule out other conditions. How is this treated? Treatment for this condition may include: ??? Replacing fluids that leaked out through the needle hole. Fluids may be replaced by: ? Drinking more fluids. ? Getting fluids through an IV line that is inserted into one of your veins. ??? Caffeine to help reduce your headache. Your health care provider may recommend drinking caffeinated beverages such as soda, coffee, or tea. ??? Having an epidural blood patch procedure. In this procedure, a small amount of your blood is injected into the area of the leak in order to seal it. ??? Medicines for pain. ??? Resting and lying flat for a few days. Follow these instructions at home: ??? Take ngzv-fbk-yfixanq and prescription medicines only as told by your health care provider. ??? Drink enough fluids to keep your urine pale yellow. ??? Drink caffeinated beverages as told by your health care provider. ??? Lie down to relieve pain if your pain gets worse when you sit or stand. ??? Return to your normal activities as told by your health care provider. Ask your health care provider what activities are safe for you. ??? Keep all follow-up visits as told by your health care provider. This is important. Contact a health care provider if: ??? You develop nausea and vomiting. Get help right away if: ??? Your pain becomes very severe. ??? Your pain cannot be controlled. ??? You develop a fever. ??? You have a stiff neck. ??? You develop problems with your vision. ??? You lose control of your bowel or bladder (have incontinence). ??? You have trouble walking, you feel weak, or you lose feeling in part of your body. Summary ??? A spinal headache is a severe headache that can happen after a person has had a lumbar puncture or epidural anesthesia. ??? This condition is caused by a leak of spinal fluid from the spine through the hole that is left by the needle. The headache can last for a few days. In rare cases, it lasts for more than a week. ??? Supportive measures, such as drinking more fluid and taking pain medicines, are usually recommended. In some cases, it may be necessary to inject a small amount of your blood to seal the leak. This information is not intended to replace advice given to you by your health care provider. Make sure you discuss any questions you have with your health care provider. Document Released: 07/23/2002 Document Revised: 03/15/2018 Document Reviewed: 03/15/2018 [employer] Interactive Patient Education ?? 2019 [employer] Cerebrospinal Fluid Leak, Adult Cerebrospinal fluid (CSF) is the clear fluid that surrounds, nourishes, and cushions the brain and spinal cord. The brain and spinal cord (central nervous system) are covered by a membrane (dura). CSF can leak through any tear or opening in the dura. There may be a danger of infection spreading into the brain or spinal cord (meningitis) through the torn dura. In rare cases, the low CSF pressure can result in bleeding around the brain (subdural hematoma) or the development of blood clots in veins (venous sinus thrombosis). What are the causes? A CSF leak can result from any opening in the dura. Possible causes include: ??? Surgery in the area of the spinal cord or head. ??? An injury (trauma) to the head, neck, or back. ??? A procedure to get medicine injected into your spine to numb the area below and slightly above the injection site (spinal anesthetic). ??? A procedure in which a small amount of CSF is removed from the spine and examined (lumbar puncture or spinal tap). ??? A tumor that disrupts the dura. Sometimes, the cause is not known (spontaneous CSF leak). What are the signs or symptoms? Headache is the most common symptom of a CSF leak. This type of headache gets worse when you stand or sit up. It may be better when you lie still. Other possible symptoms include: ??? A stiff neck. ??? Nausea and vomiting. ??? Changes in hearing or vision. ??? Dizziness. ??? Ringing in the ears (tinnitus). ??? Clear or blood-tinged fluid dripping from the nose or ear (CSF rhinorrhea or CSF otorrhea). ??? Weakness or numbness on one side of the body. If meningitis develops, symptoms may also include: ??? Fever. ??? Chills. ??? Confusion or sleepiness. ??? Seizure. How is this diagnosed? This condition is diagnosed based on your symptoms, medical history, and a physical exam. You may have diagnostic tests to confirm the diagnosis and locate the cause of the leak. These tests may include: ??? Testing a sample of the fluid that is dripping from your nose or ear to find out if it is CSF. ??? Imaging studies of the central nervous system, such as a CT scan or MRI. ??? A type of CT scan that is done after dye is injected into the spinal canal (CT myelogram). ??? A lumbar puncture to measure pressure inside the central nervous system. How is this treated? Treatment for a CSF leak depends on the size and cause of the leak. Treatment also depends on if there is infection. Many leaks will close over time with initial treatment and home care. You may need to: ??? Have complete bed rest. ??? Get more fluids by mouth or through an IV tube. ??? Drink caffeinated beverages. ??? Receive headache medicine. If the leak does not get better with time, or if there is an infection, treatment may include: ??? Intravenous (IV) antibiotics for bacterial meningitis. ??? A blood clot patch to seal the leak. ??? Surgery to close a hole in the dura. The exact procedure depends on the location of the leak. Follow these instructions at home: ??? Learn as much as you can about your condition and work closely with your health care providers. ??? Take wujl-mrv-wvnadxv and prescription medicines only as told by your health care providers. ??? Return to your normal activities as told by your health care providers. Ask your health care providers what activities are safe for you. ??? Drink enough fluid to keep your urine clear or pale yellow. ??? Keep all follow-up visits as told by your health care providers. This is important. Contact a health care provider if: ??? You continue to have symptoms. ??? You develop any new symptoms. ??? You have fluid dripping from your ear or nose. Get help right away if: ??? You have a fever or chills. ??? You have a headache. ??? You have a stiff neck. ??? You are confused or sleepy. This information is not intended to replace advice given to you by your health care provider. Make sure you discuss any questions you have with your health care provider. Document Released: 06/11/2016 Document Revised: 08/20/2016 Document Reviewed: 06/11/2016 [employer] Interactive Patient Education ?? 2019 [employer] Lumbar Puncture, Care After This sheet gives you information about how to care for yourself after your procedure. Your health care provider may also give you more specific instructions. If you have problems or questions, contact your health care provider. What can I expect after the procedure? After the procedure, it is common to have: ??? Mild discomfort or pain at the puncture site. ??? A mild headache that is relieved with pain medicines. Follow these instructions at home: Activity ??? Lie down flat or rest for as long as directed by your health care provider. ??? Return to your normal activities as told by your health care provider. Ask your health care provider what activities are safe for you. ??? Avoid lifting anything heavier than 10 lb (4.5 kg) for at least 12 hours after the procedure. ??? Do not drive for 24 hours if you were given a medicine to help you relax (sedative) during your procedure. ??? Do not drive or use heavy machinery while taking prescription pain medicine. Puncture site care ??? Remove or change your bandage (dressing) as told by your health care provider. ??? Check your puncture area every day for signs of infection. Check for: ? More pain. ? Redness or swelling. ? Fluid or blood leaking from the puncture site. ? Warmth. ? Pus or a bad smell. General instructions ??? Take zyrv-cns-vufwufb and prescription medicines only as told by your health care provider. ??? Drink enough fluids to keep your urine clear or pale yellow. Your health care provider may recommend drinking caffeine to prevent a headache. ??? Keep all follow-up visits as told by your health care provider. This is important. Contact a health care provider if: ??? You have fever or chills. ??? You have nausea or vomiting. ??? You have a headache that lasts for more than 2 days or does not get better with medicine. Get help right away if: ??? You develop any of the following in your legs: ? Weakness. ? Numbness. ? Tingling. ??? You are unable to control when you urinate or have a bowel movement (incontinence). ??? You have signs of infection around your puncture site, such as: ? More pain. ? Redness or swelling. ? Fluid or blood leakage. ? Warmth. ? Pus or a bad smell. ??? You are dizzy or you feel like you might faint. ??? You have a severe headache, especially when you sit or stand. Summary ??? A lumbar puncture is a procedure in which a small needle is inserted into the lower back to remove fluid that surrounds the brain and spinal cord. ??? After this procedure, it is common to have a headache and pain around the needle insertion area. ??? Lying flat, staying hydrated, and drinking caffeine can help prevent headaches. ??? Monitor your needle insertion site for signs of infection, including warmth, fluid, or more pain. ??? Get help right away if you develop leg weakness, leg numbness, incontinence, or severe headaches. This information is not intended to replace advice given to you by your health care provider. Make sure you discuss any questions you have with your health care provider. Document Released: 02/05/2014 Document Revised: 03/16/2017 Document Reviewed: 03/16/2017 [employer] Interactive Patient Education ?? 2019 [employer]. Emergency Awareness and Preventative Care STROKE is an EMERGENCY Every Minute Counts Act FAST and Check for these signs: FACE Does the face look uneven? ARM Does one arm drift down? SPEECH Does their speech sound strange? TIME Call at any sign of stroke Stroke Risk Factors Atrial Fibrillation (irregular heartbeat) Diabetes Family history of stroke Heart Disease Heavy alcohol use High Blood Pressure High Cholesterol Physical inactivity and obesity Smoking Cigarette Smoking The facts are clear, cigarette smoking will shorten your life. Smoking can cause many illnesses along the way. As a healthcare provider, we recommend that you stop smoking. Assistance with quitting is available by contacting 7-070-CESV-NOW. This is a free resource providing counseling, support, and referral. Or you may contact your personal physician. National Suicide Prevention Lifeline: The National Suicide Prevention Lifeline is a national network of local crisis centers that provides free and confidential emotional support to people in suicidal crisis or emotional distress 24 hours a day, 7 days a week. Don't Wait! Stop a Heart Attack Before it Starts What is a heart attack? A heart attack is damage or to a part of the heart from severely decreased or lack of blood flow to the heart. Over time, arteries can become narrow from the buildup of fat and cholesterol, which is called plaque. The plaque can rupture causing a blood clot to form. When the blood clot forms, the artery can become severely narrowed or completely blocked, causing a heart attack. Heart attack is the leading cause of in the [place]. 85% of muscle damage occurs within the first 2 hours. Delay in the recognition of heart attack symptoms increases the chances of . Know the early symptoms of a heart attack: Nausea Feeling of fullness in chest Jaw Pain Pain that travels down one or both arms Fatigue/being tired Anxiety Back Pain Chest pressure, squeezing, or discomfort Shortness of breath Sweating, or a cold sweat Feeling of impending doom There are unusual signs of a heart attack, too! Women, the elderly, and diabetics may present with atypical symptoms: Fainting/dizziness Weakness Confusion Risk Factors for a Heart Attack Some heart disease risk factors, such as age and family history, cannot be changed. Others, like smoking and lack of exercise, can be changed. Smoking High Cholesterol High Blood Pressure Family History Obesity Age Gender (Males are at higher risk) Lack of Exercise Diabetes Diet Stress Excessive Alcohol Intake If you or someone you know is experiencing the signs and symptoms of a heart attack, DON???T DELAY. Call immediately and seek help. If someone collapses, perform CPR! Do not attempt to drive if you are having symptoms of heart attack. Hands-Only CPR Why Hands-Only CPR? Hands-Only CPR has been shown to be as effective as conventional CPR for cardiac arrests that occur outside of a hospital. Survival depends on immediately receiving CPR from someone nearby. How do you perform Hands-Only CPR? There are two easy steps: Call if you see a teen or adult collapse Push hard and fast in the center of the chest at a beat of 100 beats per minute. Save a life! 4 WAYS TO GET AHEAD OF SEPSIS SEPSIS is a MEDICAL EMERGENCY. Time matters! Infections put you and your family at risk for a life-threatening condition called sepsis. Sepsis is the body's extreme response to an infection. It is life-threatening, and without timely treatment, sepsis can rapidly lead to tissue damage, organ failure, and . Sepsis happens when an infection you already have-in your skin, lungs, urinary tract or somewhere else-triggers a chain reaction throughout your body. 1 PREVENT INFECTIONS Take good care of chronic conditions. Talk to your doctor about getting the recommended vaccines. 2 PRACTICE GOOD HYGIENE Wash your hands frequently. Keep cuts or open sores clean and covered until they are healed. 3 KNOW THE SYMPTOMS Confusion or disorientation Shortness of breath High heart rate Fever, shivering, or feeling very cold Extreme pain or discomfort Clammy or sweaty skin 4 ACT FAST Get medical care IMMEDIATELY if you suspect sepsis or if you have an infection that is not getting better or is getting worse. To learn more about sepsis and how to prevent infections, visit www.cdc.gov/sepsis. Test Results Laboratory or Other Results This Visit (last charted value for your 06/25/2019 visit) Computed Tomography 06/25/2019 11:[address] Spine Lumbar W: CT Spine Lumbar W Patient Name:GUILLERMINA HINOJOSA I have received and understand this information and was given the opportunity to ask questions. Patient/Manager Sourcing Name: Patient/Manager Sourcing Signature: Relationship to Patient: Clinician/Hospital Manager Sourcing Signature: Date: documented in this encounter Plan of Treatment Not on file documented as of this encounter Visit Diagnoses Not on filedocumented in this encounter
--- OUTSIDE RECORDS SUMMARY | 2024-07-31 08:41 | XMS_ITS | Encounter Summary ---
Author Organization [employer] Address [address] [place] [address] Care Team Providers Care Extrusion Engineer Name Role Phone Unavailable Primary Care Provider Unavailabl e Encounter Details Date Type Department Care Team (Late st Contact Info) Description 07/27/2019 Transcribed Document [facility] Neurology - [address] [facility] [address] [place] [address] Sebastián Barboza MD [address] [place] [address] Social History Tobacco Use Types Packs/Day Years Used Date Smoking Tobacco: Never Assessed Comments Unknown Sex and Gender Information Value Date Recorded Sex Assigned at Female 08/11/2021 8:42 PM CDT Legal Sex Female 8:42 PM CDT Gender Identity Female 08/11/2021 8:42 PM CDT Sexual Orientation Not on file documented as of this encounter Miscellaneous Notes * Cerner Conversion Note - Sebastián Barboza MD - 07/27/2019 9:09 AM EDT Patient: GUILLERMINA PEARCE Age: 78 years Sex: Female : 1940 Associated Diagnoses: None Author: BROOKE YU PA Subjective Pain well controlled. Objective VS/Measurements Vitals Signs (last 24 hrs) Last Charted Minimum Maximum Temp 98.7 (JUL 26 01:42) 98 (JUL 25 18:30) 99.2 (JUL 25 21:47) Apical HR 96 (JUL 25 08:24) 96 (JUL 25 08:24) 96 (JUL 25 08:24) Mon HR 86 (JUL 26:42) 85 (JUL 25 21:47) 93 (JUL 25 10:35) Resp Rate 16 (JUL 26:42) 16 (JUL 25 18:00) 16 (JUL 25 18:00) SBP 116 (JUL 26:42) 105 (JUL 25 21:47) H 141 (JUL 25 14:21) DBP L 41 (JUL 26:42) L 41 (JUL 26:42) L 59 (JUL 25 14:) MAP 73 (JUL 26:) 57 (JUL 25 21:47) 113 (JUL 25 14:21) SpO2 L 90 (JUL 25 18:30) L 90 (JUL 25 18:30) 97 (JUL 25 14:21) AAOx3. Hard of hearing. Incision clean, dry, and intact. 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 Ambulated with PT 140' yesterday. Impression and Plan POD 2 L3-iliac fusion with removal of pain pump. D/C drain today. Discharge home with home health after morning PT. 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 Home Medications (18) Active atorvastatin 40 mg, Oral, Daily biotin 5,000 mcg ( 2 tab), Oral, Daily cyclobenzaprine 10 mg oral tablet 10 mg = 1 Tab, PRN, Oral, TID escitalopram 20 mg, Oral, Daily Hair, Skin & Nails 1 Tab, Oral, Daily Lasix 40 mg, PRN, Oral, TID losartan 25 mg, Oral, Daily Metoprolol Succinate ER 25 mg, Oral, Daily nitroglycerin 0.4 mg, PRN, SubLINgual, Q5Min pantoprazole 40 mg, Oral, Daily Percocet 7.5/325 oral tablet 1 Tab, PRN, Oral, QID Plavix 75 mg, Oral, Daily potassium gluconate 99 mg ( 2 tabs ), Oral, Daily pramipexole 2 mg, Oral, At Bedtime rOPINIRole 2 mg, Oral, At Bedtime spironolactone 25 mg, Oral, Daily Ventolin HFA 2 Puff, PRN, Inhalation, Q4H Vitamin B Complex 100 1 mL, Oral, Daily documented in this encounter Plan of Treatment Not on file documented as of this encounter Visit Diagnoses Not on filedocumented in this encounter
--- OUTSIDE RECORDS SUMMARY | 2024-07-31 08:41 | XMS_ITS | Encounter Summary ---
Author Organization [employer] Address [address] [place] [id number] Care Team Providers Care Construction Electrician Name Role Phone Unavailable Primary Care Provider Unavailabl e Encounter Details Date Type Department Care Team (Late st Contact Info) Description 07/25/[address] [facility] Family Medicine [facility] [place] [address] ProviderIrasema MD [facility] [place] [address] Social History Tobacco Use Types [...] Irasema ProviderMD - 07/25/2019 12:07 PM CDT [facility] Main OR IntraOp Summary Primary Physician: GRETA SOTOMAYOR MD-SNU Finalized Date/Time: 07/26/19 10:29:18 Pt. Name: HINOJOSA GUILLERMINAJANICE Cerda D.O.B./Sex: 1940 Female Med Rec #: [id number] Physician: GRETA SOTOMAYOR MD-SNU Financial #: [id number] Pt. Type: I Room/Bed: [facility]/ Admit/Disch: 07/25/19 06:54:00 - Institution: [facility] IntraOp Case Attendance Entry 1 Entry 2 Entry 3 Case Attendee GRETA SOTOMAYOR Byrd, Charlie D, RN COMBEST, ASHLEY P, PREP PERSON EMERY Role Performed Surgeon/Proceduralist, Footwear Sales Coordinator, First PREP PERSON/Nurse Preventive Maintenance Coordinator First Time In 07/25/19 11:31:00 07/25/19 11:31:00 07/25/19 11:31:00 Time Out 07/25/19 14:38:00 07/25/19 14:38:00 07/25/19 14:38:00 Procedure Lumbar Fusion Posterior Lumbar Fusion Posterior Lumbar Fusion Posterior 3 Level, Intrathecal 3 Level, Intrathecal 3 Level, Intrathecal Pain Pump Replace/Revise Pain Pump Replace/Revise Pain Pump Replace/Revise Other Attendee Superficial Wound Closed By: Last Modified By: ROBY MORROW, RN ROBY MORROW, RN ROBY MORROW, RN 07/25/19 14:38:13 07/25/19 14:38:13 07/25/19 14:38:13 Entry 4 Entry 5 Entry 6 Case Attendee NISHANT WATTS PA-C LONG, PAULA R., PATRICIA SWANN RN Role Performed Physician dental assistant teacher Scrub, First Footwear Sales Coordinator, Second Time In 07/25/19 11:31:00 07/25/19 11:31:00 07/25/19 11:31:00 Time Out 07/25/19 14:38:00 07/25/19 14:38:00 07/25/19 12:10:00 Procedure Lumbar Fusion Posterior Lumbar Fusion Posterior Lumbar Fusion Posterior 3 Level, Intrathecal 3 Level, Intrathecal 3 Level, Intrathecal Pain Pump Replace/Revise Pain Pump Replace/Revise Pain Pump Replace/Revise Other Attendee Superficial Wound Closed By: Last Modified By: ROBY MORROW, ROBY BLACKBURN, RN ROBY MORROW, RN 07/25/19 14:38:13 07/25/19 14:38:13 07/25/19 14:38:13 Entry 7 Entry 8 Entry 9 Case Attendee PHYLICIA GERMAIN MD-ANS OTHER, ATTENDEE #1 GREG BARRAZA Role Performed [facility] Record Time In 07/25/19 11:31:00 07/25/19 11:31:00 07/25/19 11:31:00 Time Out 07/25/19 14:38:00 07/25/19 14:38:00 07/25/19 14:38:00 Procedure Lumbar Fusion Posterior Lumbar Fusion Posterior Lumbar Fusion Posterior 3 Level, Intrathecal 3 Level, Intrathecal 3 Level, Intrathecal Pain Pump Replace/Revise Pain Pump Replace/Revise Pain Pump Replace/Revise Other Attendee NEIL GRADY Superficial Wound Closed By: Last Modified By: ROBY MORROW, RN ROBY MORROW, RN ROBY MORROW, RN 07/25/19 14:38:13 07/25/19 14:38:13 07/25/19 14:38:13 Entry 10 Entry 11 Case Attendee ROBY MORROW, RN KENNETH SMITH, FINISHING POWDER PRESS OPERATOR Role Performed Footwear Sales Coordinator, Second Scrub, First Time In 07/25/19 12:21:00 07/25/19 11:31:00 Time Out 07/25/19 14:38:00 07/25/19 12:00:00 Procedure Lumbar Fusion Posterior Lumbar Fusion Posterior 3 Level, Intrathecal 3 Level, Intrathecal Pain Pump Replace/Revise Pain Pump Replace/Revise Other Attendee [facility] Superficial Wound Closed By: Last Modified By: ROBY MORROW, ROBY BLACKBURN, RN 07/25/19 14:38:13 07/25/19 14:38:13 [facility] IntraOp Case Attendance Audit 07/25/19 14:38:13 Website Developer: GOYO Modifier: GOYO 1 <+> Time Out 1 <*> Procedure Lumbar Fusion Posterior 3 Level, Intrathecal Pain Pump Replace/Revise 2 <+> Time Out 2 <*> Procedure Lumbar Fusion Posterior 3 Level, Intrathecal Pain Pump Replace/Revise 3 <+> Time Out 3 <*> Procedure Lumbar Fusion Posterior 3 Level, Intrathecal Pain Pump Replace/Revise 4 <+> Time Out 4 <*> Procedure Lumbar Fusion Posterior 3 Level, Intrathecal Pain Pump Replace/Revise 5 <+> Time Out 5 <*> Procedure Lumbar Fusion Posterior 3 Level, Intrathecal Pain Pump Replace/Revise 6 <*> Procedure Lumbar Fusion Posterior 3 Level, Intrathecal Pain Pump Replace/Revise 7 <+> Time Out 7 <*> Procedure Lumbar Fusion Posterior 3 Level, Intrathecal Pain Pump Replace/Revise 8 <+> Time Out 8 <*> Procedure Lumbar Fusion Posterior 3 Level, Intrathecal Pain Pump Replace/Revise 9 <+> Time Out 9 <*> Procedure Lumbar Fusion Posterior 3 Level, Intrathecal Pain Pump Replace/Revise 10 <+> Time Out 10 <*> Procedure Lumbar Fusion Posterior 3 Level, Intrathecal Pain Pump Replace/Revise 11 <*> Procedure Lumbar Fusion Posterior 3 Level, Intrathecal Pain Pump Replace/Revise 07/25/19 14:09:37 Website Developer: [email or web address] Modifier: WASSONSY 1 <*> Procedure Lumbar Fusion Posterior 3 Level, Intrathecal Pain Pump Replace/Revise 2 <*> Procedure Lumbar Fusion Posterior 3 Level, Intrathecal Pain Pump Replace/Revise 3 <*> Procedure Lumbar Fusion Posterior 3 Level, Intrathecal Pain Pump Replace/Revise 4 <*> Procedure Lumbar Fusion Posterior 3 Level, Intrathecal Pain Pump Replace/Revise 5 <*> Procedure Lumbar Fusion Posterior 3 Level, Intrathecal Pain Pump Replace/Revise 6 <*> Procedure Lumbar Fusion Posterior 3 Level, Intrathecal Pain Pump Replace/Revise 7 <*> Procedure Lumbar Fusion Posterior 3 Level, Intrathecal Pain Pump Replace/Revise 8 <*> Procedure Lumbar Fusion Posterior 3 Level, Intrathecal Pain Pump Replace/Revise 9 <*> Procedure Lumbar Fusion Posterior 3 Level, Intrathecal Pain Pump Replace/Revise 10 <*> Procedure Lumbar Fusion Posterior 3 Level, Intrathecal Pain Pump Replace/Revise 11 <+> Time In 11 <*> Procedure Lumbar Fusion Posterior 3 Level, Intrathecal Pain Pump Replace/Revise 07/25/19 12:25:06 Website Developer: [email or web address] Modifier: [email or web address] <+> 11 Case Attendee <+> 11 Role Performed <+> 11 Time Out <+> 11 Procedure <+> 11 Other Attendee 07/25/19 12:24:05 Website Developer: [email or web address] Modifier: [email or web address] 6 <+> Time Out 6 <*> Procedure Lumbar Fusion Posterior 3 Level, Intrathecal Pain Pump Replace/Revise 07/25/19 12:23:46 Website Developer: [email or web address] Modifier: [email or web address] 1 <*> Procedure Lumbar Fusion Posterior 3 Level, Intrathecal Pain Pump Replace/Revise 2 <*> Procedure Lumbar Fusion Posterior 3 Level, Intrathecal Pain Pump Replace/Revise 3 <*> Procedure Lumbar Fusion Posterior 3 Level, Intrathecal Pain Pump Replace/Revise 4 <*> Procedure Lumbar Fusion Posterior 3 Level, Intrathecal Pain Pump Replace/Revise 5 <*> Procedure Lumbar Fusion Posterior 3 Level, Intrathecal Pain Pump Replace/Revise 6 <*> Procedure Lumbar Fusion Posterior 3 Level, Intrathecal Pain Pump Replace/Revise 7 <*> Procedure Lumbar Fusion Posterior 3 Level, Intrathecal Pain Pump Replace/Revise 8 <*> Procedure Lumbar Fusion Posterior 3 Level, Intrathecal Pain Pump Replace/Revise 9 <+> Time In 9 <*> Procedure Lumbar Fusion Posterior 3 Level, Intrathecal Pain Pump Replace/Revise <+> 10 Case Attendee <+> 10 Role Performed <+> 10 Time In <+> 10 Procedure 07/25/19 12:15:49 Website Developer: ALBINO Modifier: ALBINO 1 <+> Time In 1 <*> Procedure Lumbar Fusion Posterior 3 Level, Intrathecal Pain Pump Replace/Revise 2 <+> Time In 2 <*> Procedure Lumbar Fusion Posterior 3 Level, Intrathecal Pain Pump Replace/Revise 3 <+> Time In 3 <*> Procedure Lumbar Fusion Posterior 3 Level, Intrathecal Pain Pump Replace/Revise 4 <+> Time In 4 <*> Procedure Lumbar Fusion Posterior 3 Level, Intrathecal Pain Pump Replace/Revise 5 <+> Time In 5 <*> Procedure Lumbar Fusion Posterior 3 Level, Intrathecal Pain Pump Replace/Revise 6 <+> Time In 6 <*> Procedure Lumbar Fusion Posterior 3 Level, Intrathecal Pain Pump Replace/Revise 7 <+> Time In 7 <*> Procedure Lumbar Fusion Posterior 3 Level, Intrathecal Pain Pump Replace/Revise <+> 8 Time In <+> 8 Procedure <+> 9 Case Attendee <+> 9 Role Performed <+> 9 Procedure 07/25/19 11:31:28 Website Developer: ALBINO Modifier: ALBINO <+> 1 Procedure <+> 2 Case Attendee <+> 2 Role Performed <+> 2 Procedure <+> 3 Case Attendee <+> 3 Role Performed <+> 3 Procedure <+> 4 Case Attendee <+> 4 Role Performed <+> 4 Procedure <+> 5 Case Attendee <+> 5 Role Performed <+> 5 Procedure <+> 6 Case Attendee <+> 6 Role Performed <+> 6 Procedure <+> 7 Case Attendee <+> 7 Role Performed <+> 7 Procedure <+> 8 Case Attendee <+> 8 Role Performed <+> 8 Other Attendee [facility] IntraOp Case Times Entry 1 Patient In Room Time 07/25/19 11:31:00 Out Room Time 07/25/19 14:38:00 Anesthesia Start Time 07/25/19 11:31:00 Stop Time 07/25/19 14:38:00 Surgery / Procedure Times Start Time 07/25/19 12:07:00 Stop Time 07/25/19 14:27:00 Last Modified By: ROBY MORROW RN 07/25/19 14:38:12 [facility] IntraOp Case Times Audit 07/25/19 14:38:12 Website Developer: WASSONSY Modifier: WASSONSY <+> 1 Out Room Time <+> 1 Stop Time 07/25/19 14:27:17 Website Developer: WASSONSY Modifier: WASSONSY <+> 1 Stop Time 07/25/19 14:19:32 Website Developer: WASSONSY Modifier: WASSONSY 1 <-> Stop Time 07/25/19 14:07:00 07/25/19 14:09:32 Website Developer: [email or web address] Modifier: WASSONSY <+> 1 Stop Time 07/25/19 12:11:18 Website Developer: [email or web address] Modifier: [email or web address] <+> 1 Start Time [facility] IntraOp Cautery Entry 1 Entry 2 ESU Identification Cautery Type Monopolar ESU BiPolar ESU Cautery Type Comments ID Number [id number] ID Type Hospital Number Hospital Number Cautery Settings Cut Setting 50 8 Coag Setting 50 50 Blend Setting Bipolar Setting Argon Setting Argon Ying ESU Grounding Pad Ground Pad Type Adult Grounding Pad Type Comment Grounding Pad Site Right thigh Grounding Pad Site Comment Grounding Pad Kota Napoles RN Applied By Grounding Pad Site Warm, dry and intact Skin Condition Before Cautery Site Skin Condition Before Comment Grounding Pad Site Unchanged Skin Condition After Cautery Site Skin Condition After Comment Last Modified By: Kota Napoles RN Byrd, Charlie D, RN 07/25/19 12:26:32 07/25/19 12:26:32 [facility] IntraOp Communication Entry 1 Communication To Family/Significant other Comment START Communication By Kota Napoles RN Date and Time 07/25/19 12:17:00 Last Modified By: Kota Napoles RN 07/25/19 12:20:31 [facility] IntraOp Counts Verification Entry 1 Procedure Lumbar Fusion Posterior 3 Level, Intrathecal Pain Pump Replace/Revise Count Info Count Type Sponge, Sharps, Miscellaneous Counts Verification Baseline/pre-procedure Sequence Count Results Not Applicable Counts Performed By Count Performed By KENNETH SMITH CST (Scrub) Count Performed By PATRICIA LAMA RN (RN) Last Modified By: Kota Napoles RN 07/25/19 12:25:25 [facility] IntraOp Counts Final Entry 1 Procedure Lumbar Fusion Posterior 3 Level, Intrathecal Pain Pump Replace/Revise Final Count Info Count Type Sponge, Sharps, Miscellaneous Counts Verification Skin Closure/end of Sequence procedure Count Results Correct, surgeon notified Counts Performed By Count Performed By LUZ ALVAREZ ST (Scrub) Count Performed By Kota Napoles, RN (RN) Last Modified By: ROBY MORROW RN 07/25/19 14:03:34 [facility] IntraOp Cultures and Spec Summary Entry 1 Cultrures and Specimens Specimen Ordered: Yes Test(s) Routine/Path-Lab Requested/Final Disposition Last Modified By: Kota Napoles RN 07/25/19 12:18:15 General Comments: A. EXPLANTED PAIN PUMP [facility] IntraOp Departure from OR Entry 1 Integumentary Assessment Integumentary WDL Assessment WDL Transfer/Handoff Transfer to PACU Phase I Handoff Method Bedside/Face to face, Phone call Handoff Reported to Ml Wilburn RN Post-op Transport Stretcher/[facility] Via Patient Transport DAT SKINNER, Accompanied by MAC POWERS JUSTIN, PA-C Last Modified By: ROBY MORROW RN 07/25/19 14:04:08 [facility] IntraOp Departure from OR Audit 07/25/19 14:04:08 Website Developer: [email or web address] Modifier: WASSONSY 1 <+> Patient Transport Accompanied by 1 <*> Handoff Method Phone call [facility] IntraOp Drains and Tubes Entry 1 Device Type Baltazar Drain Size 15 FR Drain/Tube Activity Inserted Drain/Tube Suction Bulb Drain/Tube Drainage Serosanguineous Device Location OP SITE Method of Drainage Compression Last Modified By: ROBY MORROW RN 07/25/19 13:53:54 [facility] IntraOp Dressing and Packing Entry 1 Type Dressing Location OP SITE Wound Dressing Item Steristrip, Other Applied By NISHANT WATTS PA-C Other Comments NEOSPORIN OINTMENT, STERISTRIPS, COVADERMS Last Modified By: Kota Napoles RN 07/25/19 12:51:25 [facility] IntraOp Fire Risk Assessment Entry 1 Fire Info Surgical Site or 0- No Incision Above the Xyphoid Open O2 Source 0- No (Mask or Cannula) Available Ignition 1- Yes (ESU, Laser, Light Source) Fire Risk 1 Assessment Score Fire Score Fire Risk Yes Assessment Complete Fire Risk Kota Napoles, armor reconnaissance specialist Verified By Fire Risk 07/25/19 11:29:00 Assessment Verified Date/Time Fire Risk Standard Fire Yes Safety Precautions Followed Last Modified By: Kota Napoles RN 07/25/19 12:16:13 [facility] IntraOp General Case Beaver Trapper 1 Case Information OR OR 10 [facility] Case Level 1 Room Verified Yes Wound Class I - Clean Specialty SN Neurosurgery Anesthesia Type General ASA Class 3 Diagnosis Preop Diagnosis LUMBAR RADICULOPATHY Postop Same As Preop No Postop Diagnosis SEE MD POST OP NOTES Last Modified By: Kota Napoles RN 07/25/19 12:17:04 [facility] IntraOp Implant Log Entry 1 Entry 2 Entry 3 Type Tissue Implant Implant (Synthetic) Implant (Synthetic) (Biologic) Implant Log Implant Type Hardware Hardware Tissue Implant Type Other Implant BONE VIVIGEN FRMBLE SCR SPNE SHAHRIAR FIX SCR SPNE SHAHRIAR FIX FEN Identification CELL [id number] Description Implant Quantity 1 2 4 Implant Site OP SITE OP SITE OP SITE Implant Identification Model Number Implant [id number] Identification Serial Number Implant Identification Lot Number Implant Lifenet:Lifenet J&J:Depuy:Depuy Spine J&J:Depuy:Depuy Spine Identification Transplant Srv Campground Hand Name: Implant [id number] Identification Catalog Number Implant Size Implant Has an Yes Expiration Date Implant Expiration 06/19/20 Date Wasted Radioactive Material Time Implanted Tissue Implant Continue for Tissue Implant Documentation Tissue Identification Number Graft Prep Per Campground Hand Instructions: Tissue Preparation Method: Reconstitution Solution: Reconstitution Solution Lot Number Reconstitution Solution Expiration Date: Thawing Solution Thawing Solution Lot Number Thawing Solution Expiration Date Preparation Materials, Other Preparation Materials, Other Lot Number Preparation Materials, Other Expiration Date Tissue Prepared/Processed By Campground Hand Paperwork Completed Implant Type Comment Last Modified By: ROBY MORROW RN WASSON, SANDRA D, RN WASSON, SANDRA D, RN 07/25/19 13:25:36 07/25/19 13:59:42 07/25/19 13:59:42 Entry 4 Entry 5 Entry 6 Type Implant (Synthetic) Implant (Synthetic) Implant (Synthetic) Implant Log Implant Type Hardware Hardware Hardware Tissue Implant Type Implant SCR SPNE SHAHRIAR FIX SCR ILIAM 8MM X 90MM CEMENT SPINAL Identification [id number] Description Implant Quantity 2 2 1 Implant Site OP SITE OP SITE OP SITE Implant Identification Model Number Implant Identification Serial Number Implant Identification Lot Number Implant J&J:Depuy:Depuy Spine J&J:Depuy:Depuy Spine J&J:Depuy:Depuy Spine Identification Campground Hand Name: Implant [id number] Identification Catalog Number Implant Size Implant Has an Expiration Date Implant Expiration Date Wasted Radioactive Material Time Implanted Tissue Implant Continue for Tissue Implant Documentation Tissue Identification Number Graft Prep Per Campground Hand Instructions: Tissue Preparation Method: Reconstitution Solution: Reconstitution Solution Lot Number Reconstitution Solution Expiration Date: Thawing Solution Thawing Solution Lot Number Thawing Solution Expiration Date Preparation Materials, Other Preparation Materials, Other Lot Number Preparation Materials, Other Expiration Date Tissue Prepared/Processed By Campground Hand Paperwork Completed Implant Type Comment Last Modified By: ROBY MORROW RN WASSON, SANDRA D, RN WASSON, SANDRA D, RN 07/25/19 13:59:42 07/25/19 13:59:42 07/25/19 13:59:42 Entry 7 Entry 8 Entry 9 Type Implant (Synthetic) Implant (Synthetic) Implant (Synthetic) Implant Log Implant Type Hardware Hardware Hardware Tissue Implant Type Implant JENN SURG FENESTRATE RIZWANA PRE LOAD [id number] MIS JENN PLY SCRW SET Identification [id number] Description Implant Quantity 1 2 10 Implant Site OP SITE OP SITE OP SITE Implant Identification Model Number Implant Identification Serial Number Implant Identification Lot Number Implant J&J:Depuy J&J:Depuy:Depuy Spine J&J:Depuy:Depuy Spine Identification Campground Hand Name: Implant [id number] Identification Catalog Number Implant Size Implant Has an Expiration Date Implant Expiration Date Wasted Radioactive Material Time Implanted Tissue Implant Continue for Tissue Implant Documentation Tissue Identification Number Graft Prep Per Campground Hand Instructions: Tissue Preparation Method: Reconstitution Solution: Reconstitution Solution Lot Number Reconstitution Solution Expiration Date: Thawing Solution Thawing Solution Lot Number Thawing Solution Expiration Date Preparation Materials, Other Preparation Materials, Other Lot Number Preparation Materials, Other Expiration Date Tissue Prepared/Processed By Campground Hand Paperwork Completed Implant Type Comment Last Modified By: ROBY MORROW RN WASSON, SANDRA D, RN WASSON, SANDRA D, RN 07/25/19 13:59:42 07/25/19 13:59:42 07/25/19 13:59:42 Entry 10 Type Implant (Synthetic) Implant Log Implant Type Hardware Tissue Implant Type Implant RIZWANA PRE-LORD W/LINE Identification [id number] Description Implant Quantity 1 Implant Site OP SITE Implant Identification Model Number Implant Identification Serial Number Implant Identification Lot Number Implant J&J:Depuy:Depuy Spine Identification Camp[employer] Hand Name: Implant [id number] Identification Catalog Number Implant Size Implant Has an Expiration Date Implant Expiration Date Wasted Radioactive Material Time Implanted Tissue Implant Continue for Tissue Implant Documentation Tissue Identification Number Graft Prep Per Campground Hand Instructions: Tissue Preparation Method: Reconstitution Solution: Reconstitution Solution Lot Number Reconstitution Solution Expiration Date: Thawing Solution Thawing Solution Lot Number Thawing Solution Expiration Date Preparation Materials, Other Preparation Materials, Other Lot Number Preparation Materials, Other Expiration Date Tissue Prepared/Processed By Campground Hand Paperwork Completed Implant Type Comment Last Modified By: ROBY MORROW RN 07/25/19 13:59:42 [facility] IntraOp Implant Log Audit 07/25/19 13:59:42 Website Developer: [email or web address] Modifier: WASSONSY <+> 2 Implant Identification Description <+> 2 Implant Identification Campground Hand Name: <+> 2 Implant Site <+> 2 Implant Quantity <+> 2 Implant Identification Catalog Number <+> 2 Implant Type <+> 2 Type <+> 3 Implant Identification Description <+> 3 Implant Identification Campground Hand Name: <+> 3 Implant Site <+> 3 Implant Quantity <+> 3 Implant Identification Catalog Number <+> 3 Implant Type <+> 3 Type <+> 4 Implant Identification Description <+> 4 Implant Identification Campground Hand Name: <+> 4 Implant Site <+> 4 Implant Quantity <+> 4 Implant Identification Catalog Number <+> 4 Implant Type <+> 4 Type <+> 5 Implant Identification Description <+> 5 Implant Identification Campground Hand Name: <+> 5 Implant Site <+> 5 Implant Quantity <+> 5 Implant Identification Catalog Number <+> 5 Implant Type <+> 5 Type <+> 6 Implant Identification Description <+> 6 Implant Identification Campground Hand Name: <+> 6 Implant Site <+> 6 Implant Quantity <+> 6 Implant Identification Catalog Number <+> 6 Implant Type <+> 6 Type <+> 7 Implant Identification Description <+> 7 Implant Identification Campground Hand Name: <+> 7 Implant Site <+> 7 Implant Quantity <+> 7 Implant Identification Catalog Number <+> 7 Implant Type <+> 7 Type <+> 8 Implant Identification Description <+> 8 Implant Identification Campground Hand Name: <+> 8 Implant Site <+> 8 Implant Quantity <+> 8 Implant Identification Catalog Number <+> 8 Implant Type <+> 8 Type <+> 9 Implant Identification Description <+> 9 Implant Identification Campground Hand Name: <+> 9 Implant Site <+> 9 Implant Quantity <+> 9 Implant Identification Catalog Number <+> 9 Implant Type <+> 9 Type <+> 10 Implant Identification Description <+> 10 Implant Identification Campground Hand Name: <+> 10 Implant Site <+> 10 Implant Quantity <+> 10 Implant Identification Catalog Number <+> 10 Implant Type <+> 10 Type [facility] IntraOp Intraoperative Assessment Entry 1 Handoff Method Online nursing summary Valid History / Yes Physical in Chart Preoperative Yes Checklist Reviewed/Evaluated Allergies Reviewed Yes Patient is Latex No Sensitive Isolation Neutropenic Precautions Noted Level of WDL Consciousness (WDL = Alert, Oriented to Person, Place, and Time) Skin Assessment No Verified Present Upon IVs Arrival to OR Prosthetic/Assistive Pain Pump Devices Last Modified By: Kota Napoles RN 07/25/19 12:26:55 [facility] IntraOp Intraoperative Equipment Entry 1 Type Equipment Equipment Equipment Anna Suction System ID Number [id number] Setting 200 MM HG Intraop Monitoring Electrocardiogram Five lead placement (ECG) Electrode Placement Blood Pressure Non-Invasive BP Device Source Antiembolic Devices Antiembolic Devices Sequential compression device, knee high Antiembolic Device Bilateral Location Antiembolic Device [id number] ID Number Scopes Photo/Video Documentation Photo No Video No Last Modified By: Kota Napoles RN 07/25/19 12:29:42 [facility] IntraOp Medication Admin Entry 1 Entry 2 Entry 3 Medication/Irrigant Bacitracin 50,00units lidocaine 1% w/ Neosporin 15Gm ointment powder vial epinephrine 1:100,000 - [id number] 30ml vial - [id number] Combo Med List Time Administered Route of ADDED TO NS IRRIGATION LOCAL TOPICAL Administration Dose Dose 93626 20 1 Unit of Measure units ml pkt Volume Administered By GRETA SOTOMAYOR TUTT, MATTHEW PAIGE, SAMMONS, JUSTIN, PA-C MD-SNU MD-SNU Procedure Irrigation Irrigant Volume In Irrigant Volume Out Last Modified By: Kota Napoles, Kota Argueta, Kota Argueta RN 07/25/19 12:39:47 07/25/19 12:39:47 07/25/19 12:39:47 Entry 4 Entry 5 Entry 6 Medication/Irrigant SEALR AQUAMANTYS BIPLR SPNG SURGFOAM thrombin 5000units 6.0-236192 [id number] topical powder - [id number] Combo Med List Time Administered Route of OTHER TOPICAL TOPICAL Administration Dose Dose 1 5000 Unit of Measure pkt units Volume Administered By GRETA SOTOMAYOR TUTT, MATTHEW PAIGE, TUTT, MATTHEW PAIGE, MD-SNU MD-SNU MD-SNU Procedure Irrigation Irrigant Volume In Irrigant Volume Out Last Modified By: Kota Napoles RN Byrd, Charlie D, RN Byrd, Charlie D, RN 07/25/19 12:39:47 07/25/19 12:39:47 07/25/19 12:39:47 Entry 7 Entry 8 Entry 9 Medication/Irrigant Marcaine 0.25% 30ml [facility] vancomycin 1Gm vial - vial - [id number] Combo Med List Time Administered Route of LOCAL TOPICAL TOPICAL Administration Dose Dose 30 5 1 Unit of Measure ml ml gram Volume Administered By NISHANT WATTS PA-C TUTT, MATTHEW PAIGE, TUTT, MATTHEW PAIGE, MD-SNU MD-SNU Procedure Irrigation Irrigant Volume In Irrigant Volume Out Last Modified By: Kota Napoles RN WASSON, SANDRA D, RN WASSON, SANDRA D, RN 07/25/19 12:39:47 07/25/19 13:20:09 07/25/19 14:23:06 General Comments: 13 ML'S MEDICATION DISCARDED FROM EXPLANTED PAIN PUMP PER Clive MORROW RN AND WITNESSED PER CRNA. DR СВЕТЛАНА PACHECO AWARE AND DOES NOT KNOW WHAT MEDICATION IS PAIN PUMP [facility] IntraOp Medication Admin Audit 07/25/19 14:23:06 Website Developer: WASSONSY Modifier: WASSONSY 9 <*> Medication/Irrigant vancomycin 1Gm vial - [id number] <*> Medication/Irrigant vancomycin 1Gm vial - [id number] <*> Route of Administration 9 <*> Route of Administration 9 <*> Administered By GRETA SOTOMAYOR MD-SNU 9 <*> Administered By GRETA SOTOMAYOR MD-SNU 9 <*> Dose 9 <*> Dose 9 <*> Unit of Measure 9 <*> Unit of Measure 07/25/19 13:20:09 Website Developer: [email or web address] Modifier: WASSONSY 8 <*> Medication/Irrigant 8 <*> Medication/Irrigant 8 <*> Medication/Irrigant 8 <*> Medication/Irrigant 8 <*> Route of Administration 8 <*> Route of Administration 8 <*> Route of Administration 8 <*> Route of Administration 8 <*> Administered By GRETA SOTOMAYOR MD-SNU 8 <*> Administered By GRETA SOTOMAYOR MD-SNU 8 <*> Administered By GRETA SOTOMAYOR MD-SNU 8 <*> Administered By GRETA SOTOMAYOR MD-SNU 8 <*> Dose 8 <*> Dose 8 <*> Dose 8 <*> Dose 8 <*> Unit of Measure 8 <*> Unit of Measure 8 <*> Unit of Measure 8 <*> Unit of Measure [facility] IntraOp Patient Positioning Entry 1 Procedure Lumbar Fusion Posterior 3 Level, Intrathecal Pain Pump Replace/Revise Body Position Prone Left Arm Position Secured on padded arm board Right Arm Position Secured on padded arm board Left Leg Position Elevated Right Leg Position Elevated Feet Uncrossed Yes Pressure Points Yes Checked Positioning Devices Head Rest, Pad, Arm, Pad, Elbow, Pillows, Safety Strap, Arm(s), Safety Strap, Thighs, Table, Spinal Device Position PRONE ON T3 TRUMPF FRAME WITH CHEST, HIP AND THIGH PADS Positioned By GRETA SOTOMAYOR MD-SNU, DAT SKINNER, GIO, NISHANT WATTS PA-C, PATRICIA LAMA, RN, PATRICIA LAMA, RN Position Verified Positioning Yes Verified by Anesthesia Positioning Yes Verified by Surgeon Last Modified By: Kota Napoles RN 07/25/19 12:33:24 [facility] IntraOp Sign In Entry 1 Patient, Site, Yes Procedure Identified Surgical Consent Yes Confirmed Relevant Surgical Yes Documents Available Surgical Site N/A Marked by person performing procedure Anesthesia Machine Yes Check Completed Medication Checks Yes Completed Allergies Yes Airway Difficult No Airway/Aspiration Risk Difficult Yes Airway/Aspiration Intervention Equipment Available Blood Loss Risk Yes Blood Identifiers Not applicable Verified Per Policy Hypothermia Risk Yes Warming Measures Yes Taken Last Modified By: Kota Napoles RN 07/25/19 12:27:33 [facility] IntraOp Sign Out Entry 1 RN Confirmation Surgical Yes Procedure(s) Identified Instrument, Sponge Yes and Sharps Counts Correct/Documented Equipment Problems Yes Documented Specimen Labeled Yes Correctly Urinary Catheter Yes Documented in IView Patel Patient Yes Recovery Concerns Reviewed with Anesthesia Provider, Surgeon and RN Patel Patient Yes Management Concerns Reviewed with Anesthesia Provider, Surgeon and RN Safety Checklist Yes Elements Complete? RN Sign Out Kota Napoles, RN Signature RN Sign Out 07/25/19 14:38:00 Signature Date/Time Plan of Care Outcome - Fire Risk OUTCOME STATEMENT: Goal met Patient is free from injury related to surgical fire Plan of Care Outcome - Pt Positioning OUTCOME STATEMENT: Goal met Absence of signs and symptoms of positioning injury. Plan of Care Outcome - Skin Prep OUTCOME STATEMENT: Goal met Intraoperative care is consistent with measures to prevent infection Plan of Care Outcome - Xray/Images OUTCOME STATEMENT: Goal met Absence of observable signs or symptoms of radiation injury Plan of Care Outcome - Counts OUTCOME STATEMENT: Goal met Absence of signs and symptoms of injury related to extraneous objects Last Modified By: ROBY MORROW RN 07/25/19 14:38:36 [facility] IntraOp Sign Out Audit 07/25/19 14:38:36 Website Developer: [email or web address] Modifier: WASSONSY <+> 1 OUTCOME STATEMENT: Absence of signs and symptoms of injury related to extraneous objects <+> 1 OUTCOME STATEMENT: Absence of signs and symptoms of positioning injury. <+> 1 OUTCOME STATEMENT: Absence of observable signs or symptoms of radiation injury <+> 1 OUTCOME STATEMENT: Patient is free from injury related to surgical fire <+> 1 Surgical Procedure(s) Identified <+> 1 Specimen Labeled Correctly <+> 1 Equipment Problems Documented <+> 1 Instrument, Sponge and Sharps Counts Correct/Documented <+> 1 Patel Patient Recovery Concerns Reviewed with Anesthesia Provider, Surgeon and RN <+> 1 Patel Patient Management Concerns Reviewed with Anesthesia Provider, Surgeon and RN <+> 1 Safety Checklist Elements Complete? <+> 1 RN Sign Out Signature <+> 1 RN Sign Out Signature Date/Time <+> 1 OUTCOME STATEMENT: Intraoperative care is consistent with measures to prevent infection [facility] IntraOp Skin Prep Entry 1 Procedure Lumbar Fusion Posterior 3 Level, Intrathecal Pain Pump Replace/Revise Prescribed Yes Pre-Surgical Prep Completed Prep Area BACK AFTER ALCOHOL AND HIBICLENS PREP PER DR SOTOMAYOR Intraop Prep Integumentary WD Assessment WD Prep Agents Alcohol, Chlorhexadine gluconate, DuraPrep Prep by Kota Napoles, RN Hair Removal Methods No hair removal performed Last Modified By: Kota Napoles RN 07/25/19 12:28:55 [facility] IntraOp Skin Prep Audit 07/25/19 12:28:55 Website Developer: ALBINO Modifier: [email or web address] 1 <+> Prep Agents 1 <+> Methods 1 <*> Procedure Lumbar Fusion Posterior 3 Level, Intrathecal Pain Pump Replace/Revise 1 <+> Prep by 1 <+> Integumentary Assessment [facility] IntraOp Surgical Procedures Entry 1 Entry 2 Procedure Lumbar Fusion Posterior Intrathecal Pain Pump 3 Level Replace/Revise Modifiers Additional (L3 TO S1 PLIF, ILIAC Procedure BOLTS WITH SCREW Description AUGMENTATION USING AIRO, PAIN PUMP REMOVAL Primary Procedure Yes No Primary Surgeon GRETA SOTOMAYOR TUTT, MATTHEW PAIGE, MD-SNU MD-SNU Start 07/25/19 12:07:00 07/25/19 12:07:00 Stop 07/25/19 14:27:00 07/25/19 14:27:00 Physician States Cecum Reached Anesthesia Type General General Specialty SN Neurosurgery SN Neurosurgery Wound Class I - Clean I - Clean [facility] Modified By: ROBY MORROW, ROBY BLACKBURN RN 07/25/19 14:27:32 07/25/19 14:27:32 [facility] IntraOp Surgical Procedures Audit 07/25/19 14:27:32 Website Developer: WASSONSY Modifier: WASSONSY 1 <*> Procedure Lumbar Fusion Posterior 3 Level 1 <*> Stop 07/25/19 14:07:00 2 <*> Procedure Intrathecal Pain Pump Replace/Revise 2 <*> Stop 07/25/19 14:07:00 07/25/19 14:09:33 Website Developer: WASSONSY Modifier: WASSONSY <+> 1 Stop <+> 2 Stop 07/25/19 13:38:04 Website Developer: WASSONSY Modifier: WASSONSY 1 <*> Procedure Lumbar Fusion Posterior 3 Level 1 <*> Additional Procedure Description (L3 TO S1 PLIF, ILIAC BOLTS USING AIRO, PAIN PUMP REMOVAL WITH SCREW AUGMENTATION 07/25/19 13:34:19 Website Developer: WASSONSY Modifier: WASSONSY 1 <*> Procedure Lumbar Fusion Posterior 3 Level 1 <*> Additional Procedure Description (L3 TO S1 PLIF, ILIAC BOLTS USING AIRO, PAIN PUMP REMOVAL) 07/25/19 13:20:30 Website Developer: [email or web address] Modifier: WASSONSY 1 <*> Procedure Lumbar Fusion Posterior 3 Level 1 <*> Additional Procedure Description (L3 TO S1 PLIF, POSS ILIAC BOLTS USING AIRO, PAIN PUMP REMOVAL) [facility] IntraOp Temp Regulation Devices Entry 1 Temp Regulation Temperature Warm blankets, Forced Regulation Device Air Warming device Temperature 54325 Regulation Device Serial/Unit Number Temperature Upper body Regulation Site Temperature Device 43 C Setting Temperature DAT SKINNER P, PREP PERSON Regulation Device Applied by [facility] Modified By: Kota Napoles RN 07/25/19 12:44:48 [facility] IntraOP Time Out Entry 1 Procedure to be Lumbar Fusion Posterior Performed 3 Level, Intrathecal Pain Pump Replace/Revise Time Out Time Out Pause Time 07/25/19 12:06:00 All activity Yes suspended (unless life threatening emergency) Team Verbally Correct patient Confirms Information identity, Consent form is present and accurate, Agreement on the procedure to be done, Correct patient position, Relevant images/results properly labeled/appropriately displayed, Confirm antibiotics have been administered, Confirm the skin prep has dried, Confirm prosthesis/implant/devic e is present, Performed in location of procedure after prepped/draped Antibiotic Yes Prophylaxis Administered Or In Progress Within the Last 60 Minutes Beta Romero N/A Administered Venous Yes Thromboembolism Prophylaxis Required Anticipated Critical Events Surgeon None expected Anesthesia Provider None expected Nursing Assures Sterility of instruments, Equipment concerns or issues, Implant Availability Essential Imaging Yes Labeled and Displayed Last Modified By: Kota Napoles RN 07/25/19 12:12:18 [facility] IntraOp X-Ray and Images Entry 1 X-Ray/Imaging Type Other Fluoroscopy Type Other Site OP SITE Automobile Sales Consultant Name GREG BARRAZA [facility] AIRO Comment INTRAOPERATIVE CT SCANNER Last Modified By: Kota Napoles RN 07/25/19 12:15:24 Case Comments <None> Finalized By: RAMYA YING Document Signatures Signed By: ROBY MORROW RN 07/25/19 14:38 RAMYA YING 07/26/19 10:29 Electronically signed by Levy [facility] Conversion Carbon Printer Cerner at 06/02/2022 1:50 PM CDT documented in this encounter Plan of Treatment Not on file documented as of this encounter Visit Diagnoses Not on filedocumented in this encounter
--- OUTSIDE RECORDS SUMMARY | 2024-07-31 08:41 | XMS_ITS | Encounter Summary ---
Author Organization [employer] Address [address] [place] [address] Care Team Providers Care Regulatory Specialist Name Role Phone Unavailable Primary Care Provider Unavailabl e Encounter Details Date Type Department Care Team (Late st Contact Info) Description 06/25/2019 Transcribed Document [facility] [place] Medicine [address] [place] [address] ProviderIrasema MD [facility] [place] [address] Social History Tobacco Use Types [...] Conversion Note - Historical ProviderMD - 06/25/2019 2:53 PM CDT Event Note Entered On: 06/25/2019 14:54 EDT Performed On: 06/25/2019 14:53 EDT by KALYAN HASSAN, RN Event Note Event Date/Time : 06/25/2019 14:45 EDT Description of Event : pt discharged home in stable condition, pt verbalized understanding of discharge teaching KALYAN HASSAN, RN - 06/25/2019 14:53 EDT Electronically signed by Levy [facility] Conversion Supervisor Fur Dressing Cernoemi at 06/02/2022 1:46 PM CDT documented in this encounter Plan of Treatment Not on file documented as of this encounter Visit Diagnoses Not on filedocumented in this encounter
--- OUTSIDE RECORDS SUMMARY | 2024-07-31 08:41 | XMS_ITS | Referral Summary ---
Author Organization [employer] Address [address] [place] [address] Care Team Providers Care Language Arts Teacher Name Role Phone Unavailable Primary Care Provider Unavailabl e Social History Tobacco Use Types Packs/Day Years Used Date Smoking Tobacco: Never Assessed Comments Unknown Sex and Gender Information Value Date Recorded Sex Assigned at Female 08/11/2021 8:42 PM CDT Legal Sex Female 8:42 PM CDT Gender Identity Female 08/11/2021 8:42 PM CDT Sexual Orientation Not on file Plan of Treatment Not on file
--- OUTSIDE RECORDS SUMMARY | 2024-07-31 08:41 | XMS_ITS | Encounter Summary ---
Author Organization [employer] Address [address] [place] [id number] Care Team Providers Care Repairer Engine Production Name Role Phone Unavailable Primary Care Provider Unavailabl e Encounter Details Date Type Department Care Team (Late st Contact Info) Description 07/27/2019 Transcribed Document [facility] [place] [facility] [address] ProviderIrasema MD [facility] [place] [address] Social History Tobacco Use Types [...] Cerner Conversion Note - Historical ProviderMD - 07/27/2019 11:13 AM CDT Discharge Summary, PT Entered On: 07/27/2019 11:14 EDT Performed On: 07/27/2019 11:13 EDT by SHEILA LI PTA Discharge Summary Reason for Discharge : Discharged from hospital SHITAL GUTIERREZ, PT - 07/27/2019 16:36 EDT Discharge Summary Provider Notified : Physical Therapy Discharged to, Therapy : Home, with home health SHEILA LI PTA - 07/27/2019 11:13 EDT Discharge Summary Comment, PT : Patient was supervision for all transfers ambulates 140ft with RWx supervision Patient has not met 3 LTGs and would benefit from continued PT. PT agrees with written D/C summary. SHITAL GUTIERREZ, PT - 07/27/2019 16:36 EDT Mc[facility] Goals Mobility/Bed Mobility LTG PT Grid Goal #1 Goal #2 Activity : Supine to sit Sit to stand Assist : Independent, modified Independent, modified Date to Meet : 08/09/2019 EDT 08/09/2019 EDT Goal Status : Not met Not met Comment : via logroll SHEILA LI PTA - 07/27/2019 11:13 EDT SHEILA LI PTA - 07/27/2019 11:13 EDT Ambulation LTG Grid Goal #1 Device : Walker, front wheel Distance : 300ft Assist : Independent, modified Date to Meet : 08/09/2019 EDT Goal Status : Not met SHEILA LI PTA - 07/27/2019 11:13 EDT Electronically signed by Levy [facility] Conversion Laboratory Technologist Cerner at 06/02/2022 1:56 PM CDT documented in this encounter Plan of Treatment Not on file documented as of this encounter Visit Diagnoses Not on filedocumented in this encounter
--- OUTSIDE RECORDS SUMMARY | 2024-07-31 08:41 | XMS_ITS | Encounter Summary ---
Author Organization [employer] Address [address] [place] [id number] Care Team Providers Care Incident Coordinator Name Role Phone Unavailable Primary Care Provider Unavailabl e Encounter Details Date Type Department Care Team (Late st Contact Info) Description 07/27/2019 Transcribed Document [facility] Family Medicine [facility] [place] [address] ProviderIrasema MD [facility] [place] [address] Social History Tobacco Use Types [...] Conversion Note - Irasema ProviderMD - 07/27/2019 2:56 PM CDT [facility] [place], [place] [id number] GUILLERMINA HINOJOSA :1940 Visit Time:07/25/2019 Your Visit Summary Your Care Team Admitting Physician - GRETA SOTOMAYOR MD-SNU Attending Physician - GRETA SOTOMAYOR MD-SNU Primary Care Physician - ELISEO VALENCIA MD-[facility] Referring Physician - [facility], NOT LISTED Your Diagnosis Lumbar radiculopathy, Radiculopathy, lumbar region, Radiculopathy, lumbar region What to do next Instructions From Your Care Team Diet after Discharge: Resume usual diet as tolerated, _, _ Fluid Restriction after Discharge: _ Activity after Discharge: No bendin, lifting, or twisting, _, No strenuous activity Lifting Restrictions: No heavy lifting over 10 pounds Weight Bearing: _ Bedrest: _ Driving after Discharge: Do not drive May Return to Work/School: Showering/Bathing: May shower, No tub bathing, soaking or swimming Notify Provider of: temp >101, increased redness, foul smelling drainage from incision Wound/Incision Care after Discharge: Keep operative site/wound site clean and dry, Change dressing with dry dressing daily and as needed Medical Equipment for Home Use: Home Health Services: Community Services: Discharge Activity: Discharge Activity: No heavy lifting over 10 lbs Diet: Discharge Diet: Resume usual diet as tolerated Follow-Up Appointments Follow Up with GRETA SOTOMAYOR When 08/27/2019 01:45 PM EDT Comments with x rays at [facility] at 1:45 PM prior to appointment at 2:30 PM Where: [address] [place] [phone]- Business (1) Follow Up with GRETA SOTOMAYOR When 08/06/2019 02:00 PM EDT Comments staple removal Where: [address] [place] [phone] Business (1) Medications What How Much When Instructions Next Dose acetaminophen-oxyCODONE (Percocet 7.5/ 325 oral tablet) 1 Tablet(s) Oral Four Times A Day as needed for for pain 07/26 4pm cyclobenzaprine (cyclobenzaprine 10 mg oral tablet) 1 Tablet(s) Oral Three Times A Day as needed for as needed for spasm 12 bedtime albuterol (Ventolin HFA) 2 Puff(s) Inhalation Every 4 Hours as needed for as needed for wheezing as needed atorvastatin 40 Milligram(s) Oral Every Day 07/27 am biotin 5,000 mcg ( 2 tab) Oral Every Day 07/27 am biotin (Hair, Skin & Nails) 1 Tablet(s) Oral Every Day 07/27 am clopidogrel (Plavix) 75 Milligram(s) Oral Every Day Restart 7 days after surgery 08/01 am escitalopram 20 Milligram(s) Oral Every Day 07/27 am furosemide (Lasix) 40 Milligram(s) Oral Three Times A Day as needed for Edema as needed losartan 25 Milligram(s) Oral Every Day 613 am metoprolol (Metoprolol Succinate ER) 25 Milligram(s) Oral Every Day 13 am multivitamin (Vitamin B Complex 100) 1 Milliliter(s) Oral Every Day 13 am nitroglycerin 0.4 Milligram(s) SubLINgual Every 5 minutes as needed for as needed for chest pain as needed pantoprazole 40 Milligram(s) Oral Every Day 07/27 am potassium gluconate 99 mg ( 2 tabs ) Oral Every Day 13 am pramipexole 2 Milligram(s) Oral At Bedtime 12 bedtime rOPINIRole 2 Milligram(s) Oral At Bedtime 12 bedtime spironolactone 25 Milligram(s) Oral Every Day 07/27 am Take your medications faithfully. Do NOT skip [...] This Visit No Immunizations Found Education Materials Spinal Fusion, Adult, Care After This sheet gives you information about how to care for yourself after your procedure. Your doctor may also give you more specific instructions. If you have problems or questions, contact your doctor. Follow these instructions at home: Medicines ??? Take [id number] and prescription medicines only as told by your doctor. These include any medicines for pain or blood-thinning medicines (anticoagulants). ??? If you were prescribed an antibiotic medicine, take it as told by your doctor. Do not stop taking the antibiotic even if you start to feel better. ??? Do not drive for 24 hours if you were given a medicine to help you relax (sedative) during your procedure. ??? Do not drive or use heavy machinery while taking prescription pain medicine. If you have a brace: ??? Wear the brace as told by your doctor. Take it off only as told by your doctor. ??? Keep the brace clean. Managing pain, stiffness, and swelling ??? If directed, put ice on the surgery area: ? If you have a removable brace, take it off as told by your doctor. ? Put ice in a plastic bag. ? Place a towel between your skin and the bag. ? Leave the ice on for 20 minutes, 2???3 times a day. Surgery cut care ??? Follow instructions from your doctor about how to take care of your cut from surgery (incision). Make sure you: ? Wash your hands with soap and water before you change your bandage (dressing). If you cannot use soap and water, use hand biomedical engineering supervisor. ? Change your bandage as told by your doctor. ? Leave stitches (sutures), skin glue, or skin tape (adhesive) strips in place. They may need to stay in place for 2 weeks or longer. If tape strips get loose and curl up, you may trim the loose edges. Do not remove tape strips completely unless your doctor says it is okay. ??? Keep your cut from surgery clean and dry. ? Do not take baths, swim, or use a hot tub until your doctor says it is okay. ? Ask your doctor if you can take showers. You may only be allowed to take sponge baths. ??? Every day, check your cut from surgery and the area around it for: ? More redness, swelling, or pain. ? Fluid or blood. ? Warmth. ? Pus or a bad smell. ??? If you have a drain tube, follow instructions from your doctor about caring for it. Do not take out the drain tube or any bandages unless your doctor says it is okay. Physical activity ??? Rest and protect your back as much as possible. ??? Follow instructions from your doctor about how to move. Use good posture to help your spine heal. ??? Do not lift anything that is heavier than 8 lb (3.6 kg), or the limit that you are told, until your doctor says that it is safe. ??? Do not twist or bend at the waist until your doctor says it is okay. ??? It is best if you: ? Do not make pushing and pulling motions. ? Do not sit or lie down in the same position for a long time. ? Do not raise your hands or arms above your head. ??? Return to your normal activities as told by your doctor. Ask your doctor what activities are safe for you. Rest and protect your back as much as you can. ??? Do not start to exercise until your doctor says it is okay. Ask your doctor what kinds of exercise you can do to make your back stronger. General instructions ??? To prevent blood clots and lessen swelling in your legs: ? Wear compression stockings as told. ? Walk one or more times every few hours as told by your doctor. ??? Do not use any products that contain nicotine or tobacco, such as cigarettes and e-cigarettes. These can delay bone healing. If you need help quitting, ask your doctor. ??? To prevent or treat constipation while you are taking prescription pain medicine, your doctor may suggest that you: ? Drink enough fluid to keep your pee (urine) pale yellow. ? Take [id number] or prescription medicines. ? Eat foods that are high in fiber. These include fresh fruits and vegetables, whole grains, and beans. ? Limit foods that are high in fat and processed sugars, such as fried and sweet foods. ??? Keep all follow-up visits as told by your doctor. This is important. Contact a doctor if: ??? Your pain gets worse. ??? Your medicine does not help your pain. ??? Your legs or feet get painful or swollen. ??? Your cut from surgery is more red, swollen, or painful. ??? Your cut from surgery feels warm to the touch. ??? You have: ? Fluid or blood coming from your cut from surgery. ? Pus or a bad smell coming from your cut from surgery. ? A fever. ? Weakness or loss of feeling (numbness) in your legs that is new or getting worse. ? Trouble controlling when you pee (urinate) or poop (have a bowel movement). ??? You feel sick to your stomach (nauseous). ??? You throw up (vomit). Get help right away if: ??? Your pain is very bad. ??? You have chest pain. ??? You have trouble breathing. ??? You start to have a cough. These symptoms may be an emergency. Do not wait to see if the symptoms will go away. Get medical help right away. Call your local emergency services (911 in the [place] Do not drive yourself to the hospital. Summary ??? After the procedure, it is common to have pain in your back and pain by your surgery cut(s). ??? Icing and pain medicines may help to control the pain. Follow directions from your doctor. ??? Rest and protect your back as much as possible. Do not twist or bend at the waist. ??? Get up and walk one or more times every few hours as told by your doctor. This information is not intended to replace advice given to you by your health care provider. Make sure you discuss any questions you have with your health care provider. Document Released: 05/27/2011 Document Revised: 05/17/2017 Document Reviewed: 05/17/2017 [employer] Patient Education ?? 2020 [employer] acetaminophen and oxycodone (a SEET a MIN oh fen and OX i KOE done) Endocet 10/325, Endocet 2.5/325, Endocet 5/325, Endocet 7.5/325, Nalocet, Percocet, Primlev What is the most important information I should know about acetaminophen and oxycodone? MISUSE OF OPIOID MEDICINE CAN CAUSE ADDICTION, OVERDOSE, OR . Keep the medication in a place where others cannot get to it. An overdose of acetaminophen can damage your liver or cause . Call your doctor at once if you have pain in your upper stomach, loss of appetite, dark urine, or jaundice (yellowing of your skin or eyes). Taking opioid medicine during may cause life-threatening withdrawal symptoms in the . Fatal side effects can occur if you use opioid medicine with alcohol, or with other drugs that cause drowsiness or slow your breathing. Stop taking this medicine and call your doctor right away if you have skin redness or a rash that spreads and causes blistering and peeling. What is acetaminophen and oxycodone? Acetaminophen and oxycodone is a combination medicine used to relieve moderate to severe pain. Acetaminophen and oxycodone may also be used for purposes not listed in this medication guide. What should I discuss with my healthcare provider before taking acetaminophen and oxycodone? You should not use this medicine if you are allergic to acetaminophen or oxycodone, or if you have: ?? severe asthma or breathing problems; or ?? a blockage in your stomach or intestines. Tell your doctor if you have ever had: ?? breathing problems, sleep apnea; ?? liver disease; ?? a drug or alcohol addiction; ?? kidney disease; ?? a head injury or seizures; ?? urination problems; or ?? problems with your thyroid, pancreas, or gallbladder. If you use opioid medicine while you are , your baby could become dependent on the drug. This can cause life-threatening withdrawal symptoms in the baby after it is born. Babies born dependent on opioids may need medical treatment for several weeks. Do not breastfeed. This medicine can pass into breast milk and cause drowsiness, breathing problems, or in a nursing baby. How should I take acetaminophen and oxycodone? Follow all directions on your prescription label. Never take this medicine in larger amounts, or for longer than prescribed. An overdose can damage your liver or cause . Tell your doctor if you feel an increased urge to use more of this medicine. Never share this medicine with another person, especially someone with a history of drug abuse or addiction. MISUSE CAN CAUSE ADDICTION, OVERDOSE, OR . Keep the medicine in a place where others cannot get to it. Selling or giving away acetaminophen and oxycodone is against the law. Measure liquid medicine carefully. Use the dosing syringe provided, or use a medicine dose-measuring device (not a kitchen spoon). If you need surgery or medical tests, tell the doctor ahead of time that you are using this medicine. You should not stop using this medicine suddenly. Follow your doctor's instructions about tapering your dose. Store at room temperature away from moisture and heat. Keep track of your medicine. You should be aware if anyone is using it improperly or without a prescription. Do not keep leftover opioid medication. Just one dose can cause in someone using this medicine accidentally or improperly. Ask your pharmacist where to locate a drug take-back disposal program. If there is no take-back program, flush the unused medicine down the toilet. What happens if I miss a dose? Since this medicine is used for pain, you are not likely to miss a dose. Skip any missed dose if it is almost time for your next dose. Do not use two doses at one time. What happens if I overdose? Seek emergency medical attention or call the Poison Help line at . An overdose of acetaminophen and oxycodone can be fatal. The first signs of an acetaminophen overdose include loss of appetite, nausea, vomiting, stomach pain, sweating, and confusion or weakness. Later symptoms may include pain in your upper stomach, dark urine, and yellowing of your skin or the whites of your eyes. Overdose can also cause severe muscle weakness, pinpoint pupils, very slow breathing, extreme drowsiness, or coma. What should I avoid while taking acetaminophen and oxycodone? Avoid driving or operating machinery until you know how this medicine will affect you. Dizziness or drowsiness can cause falls, accidents, or severe injuries. Do not drink alcohol. Dangerous side effects or could occur. Ask a doctor or pharmacist before using any other medicine that may contain acetaminophen (sometimes abbreviated as APAP). Taking certain medications together can lead to a fatal overdose. What are the possible side effects of acetaminophen and oxycodone? Get emergency medical help if you have signs of an allergic reaction: hives; difficulty breathing; swelling of your face, lips, tongue, or throat. Opioid medicine can slow or stop your breathing, and may occur. A person caring for you should seek emergency medical attention if you have slow breathing with long pauses, blue colored lips, or if you are hard to wake up. In rare cases, acetaminophen may cause a severe skin reaction that can be fatal. This could occur even if you have taken acetaminophen in the past and had no reaction. Stop taking this medicine and call your doctor right away if you have skin redness or a rash that spreads and causes blistering and peeling. Call your doctor at once if you have: ?? noisy breathing, sighing, shallow breathing, breathing that stops during sleep; ?? a light-headed feeling, like you might pass out; ?? weakness, tiredness, fever, unusual bruising or bleeding; ?? confusion, unusual thoughts or behavior; ?? problems with urination; ?? liver problems--nausea, upper stomach pain, tiredness, loss of appetite, dark urine, yossi-colored stools, jaundice (yellowing of the skin or eyes); or ?? low cortisol levels-- nausea, vomiting, loss of appetite, dizziness, worsening tiredness or weakness. Seek medical attention right away if you have symptoms of serotonin syndrome, such as: agitation, hallucinations, fever, sweating, shivering, fast heart rate, muscle stiffness, twitching, loss of coordination, nausea, vomiting, or diarrhea. Serious side effects may be more likely in older adults and those who are overweight, malnourished, or debilitated. Long-term use of opioid medication may affect fertility (ability to have children) in men or women. It is not known whether opioid effects on fertility are permanent. Common side effects include: ?? dizziness, drowsiness, feeling tired; ?? feelings of extreme happiness or sadness; ?? nausea, vomiting, stomach pain; ?? constipation; or ?? headache. This is not a complete list of side effects and others may occur. Call your doctor for medical advice about side effects. You may report side effects to FDA at 5-570-AZI-3420. What other drugs will affect acetaminophen and oxycodone? You may have breathing problems or withdrawal symptoms if you start or stop taking certain other medicines. Tell your doctor if you also use an antibiotic, antifungal medication, heart or blood pressure medication, seizure medication, or medicine to treat HIV or hepatitis C. Opioid medication can interact with many other drugs and cause dangerous side effects or . Be sure your doctor knows if you also use: ?? cold or allergy medicines, bronchodilator asthma/COPD medication, or a diuretic ('water pill'); ?? medicines for motion sickness, irritable bowel syndrome, or overactive bladder; ?? other narcotic medications--opioid pain medicine or prescription cough medicine; ?? a sedative like Valium--diazepam, alprazolam, lorazepam, Xanax, Klonopin, Versed, and others; ?? drugs that make you sleepy or slow your breathing--a sleeping pill, muscle relaxer, medicine to treat mood disorders or mental illness; ?? drugs that affect serotonin levels in your body--a stimulant, or medicine for depression, Parkinson's disease, migraine headaches, serious infections, or nausea and vomiting. This list is not complete. Other drugs may affect acetaminophen and oxycodone, including prescription and [id number] medicines, vitamins, and herbal products. Not all possible interactions are listed here. Where can I get more information? Your doctor or pharmacist can provide more information about acetaminophen and oxycodone. Remember, keep this and all other medicines out of the reach of children, never share your medicines with others, and use this medication only for the indication prescribed. Every effort has been made to ensure that the information provided by [employer]') is accurate, up-to-date, and complete, but no guarantee is made to that effect. Drug information contained herein may be time sensitive. [employer] information has been compiled for use by healthcare practitioners and consumers in the [place] and therefore [employer] does not warrant that uses outside of the [place] are appropriate, unless specifically indicated otherwise. [employer] drug information does not endorse drugs, diagnose patients or recommend therapy. [employer] drug information is an informational resource designed to assist licensed healthcare practitioners in caring for their patients and/or to serve consumers viewing this service as a supplement to, and not a substitute for, the expertise, skill, knowledge and judgment of healthcare practitioners. The absence of a warning for a given drug or drug combination in no way should be construed to indicate that the drug or drug combination is safe, effective or appropriate for any given patient. [employer] does not assume any responsibility for any aspect of healthcare administered with the aid of information [employer] provides. The information contained herein is not intended to cover all possible uses, directions, precautions, warnings, drug interactions, allergic reactions, or adverse effects. If you have questions about the drugs you are taking, check with your doctor, nurse or pharmacist. Copyright 6499-1908 [employer] Version: 20.01. Revision Date: 03/07/2019. cyclobenzaprine (paresh bronson) Amrix, Comfort Pac with Cyclobenzaprine, Fexmid What is the most important information I should know about cyclobenzaprine? You should not use cyclobenzaprine if you have a thyroid disorder, heart block, congestive heart failure, a heart rhythm disorder, or you have recently had a heart attack. Do not use cyclobenzaprine if you have taken an MAO inhibitor in the past 14 days, such as isocarboxazid, linezolid, phenelzine, rasagiline, selegiline, or tranylcypromine. What is cyclobenzaprine? Cyclobenzaprine is a muscle relaxant. It works by blocking nerve impulses (or pain sensations) that are sent to your brain. Cyclobenzaprine is used together with rest and physical therapy to relieve muscle spasms caused by painful conditions such as an injury. Cyclobenzaprine may also be used for purposes not listed in this medication guide. What should I discuss with my healthcare provider before taking cyclobenzaprine? You should not use cyclobenzaprine if you are allergic to it, or if you have: ?? a thyroid disorder; ?? heart block, heart rhythm disorder, congestive heart failure; or ?? if you have recently had a heart attack. Cyclobenzaprine is not approved for use by anyone younger than 15 years old. Do not use cyclobenzaprine if you have taken an MAO inhibitor in the past 14 days. A dangerous drug interaction could occur. MAO inhibitors include isocarboxazid, linezolid, phenelzine, rasagiline, selegiline, and tranylcypromine. Some medicines can interact with cyclobenzaprine and cause a serious condition called serotonin syndrome. Be sure your doctor knows if you also take stimulant medicine, opioid medicine, herbal products, or medicine for depression, mental illness, Parkinson's disease, migraine headaches, serious infections, or prevention of nausea and vomiting. Ask your doctor before making any changes in how or when you take your medications. Tell your doctor if you have ever had: ?? liver disease; ?? glaucoma; ?? enlarged prostate; or ?? problems with urination. It is not known whether this medicine will harm an unborn baby. Tell your doctor if you are or plan to become . It may not be safe to breast-feed while using this medicine. Ask your doctor about any risk. Older adults may be more sensitive to the effects of this medicine. How should I take cyclobenzaprine? Follow all directions on your prescription label and read all medication guides or instruction sheets. Your doctor may occasionally change your dose. Use the medicine exactly as directed. Cyclobenzaprine is usually taken once daily for only 2 or 3 weeks. Follow your doctor's dosing instructions very carefully. Swallow the capsule whole and do not crush, chew, break, or open it. Take the medicine at the same time each day. Call your doctor if your symptoms do not improve after 3 weeks, or if they get worse. Store at room temperature away from moisture, heat, and light. What happens if I miss a dose? Take the medicine as soon as you can, but skip the missed dose if it is almost time for your next dose. Do not take two doses at one time. What happens if I overdose? Seek emergency medical attention or call the Poison Help line at . An overdose of cyclobenzaprine can be fatal. Overdose symptoms may include severe drowsiness, vomiting, fast heartbeats, tremors, agitation, or hallucinations. What should I avoid while taking cyclobenzaprine? Avoid driving or hazardous activity until you know how this medicine will affect you. Your reactions could be impaired. Avoid drinking alcohol. Dangerous side effects could occur. What are the possible side effects of cyclobenzaprine? Get emergency medical help if you have signs of an allergic reaction: hives; difficult breathing; swelling of your face, lips, tongue, or throat. Stop using cyclobenzaprine and call your doctor at once if you have: ?? fast or irregular heartbeats; ?? chest pain or pressure, pain spreading to your jaw or shoulder; or ?? sudden numbness or weakness (especially on one side of the body), slurred speech, balance problems. Seek medical attention right away if you have symptoms of serotonin syndrome, such as: agitation, hallucinations, fever, sweating, shivering, fast heart rate, muscle stiffness, twitching, loss of coordination, nausea, vomiting, or diarrhea. Serious side effects may be more likely in older adults. Common side effects may include: ?? drowsiness, tiredness; ?? headache, dizziness; ?? dry mouth; or ?? upset stomach, nausea, constipation. This is not a complete list of side effects and others may occur. Call your doctor for medical advice about side effects. You may report side effects to FDA at 8-539-XVO-5256. What other drugs will affect cyclobenzaprine? Using cyclobenzaprine with other drugs that make you drowsy can worsen this effect. Ask your doctor before using opioid medication, a sleeping pill, a muscle relaxer, or medicine for anxiety or seizures. Tell your doctor about all your other medicines, especially: ?? bupropion (Zyban, for smoking cessation); ?? meperidine; ?? tramadol; ?? verapamil; ?? cold or allergy medicine that contains an antihistamine (Benadryl and others); ?? medicine to treat Parkinson's disease; ?? medicine to treat excess stomach acid, stomach ulcer, motion sickness, or irritable bowel syndrome; ?? medicine to treat overactive bladder; or ?? bronchodilator asthma medication. This list is not complete. Other drugs may affect cyclobenzaprine, including prescription and cwmq-olo-cxfbtnj medicines, vitamins, and herbal products. Not all possible drug interactions are listed here. Where can I get more information? Your pharmacist can provide more information about cyclobenzaprine. Remember, keep this and all other medicines out of the reach of children, never share your medicines with others, and use this medication only for the indication prescribed. Every effort has been made to ensure that the information provided by [employer]. ('Multum') is accurate, up-to-date, and complete, but no guarantee is made to that effect. Drug information contained herein may be time sensitive. [employer] information has been compiled for use by healthcare practitioners and consumers in the [place] and therefore [employer] does not warrant that uses outside of the [place] are appropriate, unless specifically indicated otherwise. [employer] drug information does not endorse drugs, diagnose patients or recommend therapy. [employer] drug information is an informational resource designed to assist licensed healthcare practitioners in caring for their patients and/or to serve consumers viewing this service as a supplement to, and not a substitute for, the expertise, skill, knowledge and judgment of healthcare practitioners. The absence of a warning for a given drug or drug combination in no way should be construed to indicate that the drug or drug combination is safe, effective or appropriate for any given patient. [facility] does not assume any responsibility for any aspect of healthcare administered with the aid of information [facility] provides. The information contained herein is not intended to cover all possible uses, directions, precautions, warnings, drug interactions, allergic reactions, or adverse effects. If you have questions about the drugs you are taking, check with your doctor, nurse or pharmacist. Copyright 6357-4137 Best [facility]. Version: 5.01. Revision Date: 11/09/2017. Emergency Awareness and Preventative Care STROKE is [...] Assistance with quitting is available by contacting 0-489-GPXU-NOW. This is a free resource providing counseling, [...] This Visit (last charted value for your 07/25/2019 visit) Hematology 07/27/2019 3:38 AM WBC: 12.5 K/uL -- Normal range between ( 4.5 and 10.5 ) RBC: 3.06 Million/uL -- Normal range between ( 3.93 and 5.22 ) Hct: 26.0 % -- Normal range between ( 34.1 and 44.9 ) Hgb: 8.0 g/dL -- Normal range between ( 11.2 and 15.7 ) Platelet Count: 199 K/uL -- Normal range between ( 163 and 369 ) MCH: 26.1 pg -- Normal range between ( 25.6 and 32.2 ) MCHC: 30.8 Gram/dL -- Normal range between ( 32.2 and 36.5 ) MCV: 85.0 fL -- Normal range between ( 79.0 and 94.8 ) Slide Review: No Eos %: 1.5 % -- Normal range between ( 0.0 and 7.0 ) Nicholas #: 0.64 K/uL -- Normal range between ( 0.16 and 1.00 ) Eos #: 0.19 x10(3)/uL -- Normal range between ( 0.00 and 0.80 ) Nicholas %: 5.1 % -- Normal range between ( 3.0 and 9.0 ) Baso %: 0.2 % -- Normal range between ( 0.0 and 1.5 ) Baso #: 0.03 x10(3)/uL -- Normal range between ( 0.00 and 0.20 ) RDW: 14.9 % -- Normal range between ( 11.7 and 14.9 ) Neut %: 85.5 % -- Normal range between ( 34.0 and 71.0 ) Neut #: 10.66 K/uL -- Normal range between ( 1.56 and 6.13 ) Lymph %: 7.0 % -- Normal range between ( 19.3 and 53.1 ) Lymph #: 0.87 x10(3)/uL -- Normal range between ( 1.00 and 3.90 ) MPV: 10.2 fL -- Normal range between ( 9.4 and 12.4 ) IG#: 0.09 x10(3)/uL -- Normal range between ( 0.00 and 0.05 ) IG%: 0.70 % -- Normal range between ( 0.00 and 0.60 ) Urinalysis 07/19/2019 12:39 PM Ur RBC: 0-2 /HPF Urine Nitrite: Negative Urine Leukocyte Esterase: Trace Urine Appearance: Cloudy Urine Glucose Dipstick: Negative Urine Blood Dipstick: Negative Urine Type: U CleanCatch Urine Urobilinogen Dipstick: 0.2 EU/dL Urine Protein Dipstick: Negative Ur Bacteria: Trace Ur Squamous Epithelial Cells: 0-2 /HPF Urine Color: Yellow Ur WBC: 0-2 /HPF Urine Ketones Dipstick: Negative Urine pH Dipstick: 7.0 -- Normal range between ( 6.0 and 8.0 ) Urine Bilirubin Dipstick: Negative Urine Specific Shafer: 1.018 -- Normal range between ( 1.005 and 1.030 ) Microbiology 07/23/2019 12:30 PM Novel Coronavirus 2019: Negative Blood Bank 07/25/2019 10:39 AM ABO/Rh (ECHO): A POS Antibody Screen: Negative ABSC 07/19/2019 12:39 PM ABO/Rh Repeat: A POS General Chemistry 07/27/2019 3:38 AM Creatinine Level: 0.70 mg/dL -- Normal range between ( 0.55 and 1.02 ) Sodium Level: 134 mmol/L -- Normal range between ( 136 and 146 ) Potassium Level: 4.2 mmol/L -- Normal range between ( 3.5 and 5.1 ) Chloride Level: 101 mmol/L -- Normal range between ( 102 and 112 ) Carbon Dioxide Level: 28 mmol/L -- Normal range between ( 21 and 32 ) Anion Gap: 9 -- Normal range between ( 9 and 20 ) Bun/Creatinine: 14.3 -- Normal range between ( 8.0 and 20.0 ) Calcium Level: 8.1 mg/dL -- Normal range between ( 8.4 and 10.1 ) eGFR : >60 mL/min/1.73m2 eGFR NonAfrican: >60 mL/min/1.73m2 Glucose Level: 114 mg/dL -- Normal range between ( 74 and 106 ) Blood Urea Nitrogen: 10 mg/dL -- Normal range between ( 7 and 22 ) Diagnostic Radiology 07/25/2019 2:[address] in OR: CR CT in OR Patient Name:GUILLERMINA HINOJOSA Sally have received and understand this information and was given the opportunity to ask questions. Patient/Police Inspector Name: Patient/Police Inspector Signature: Relationship to Patient: Clinician/Hospital Police Inspector Signature: Date: documented in this encounter Plan of Treatment Not on file documented as of this encounter Visit Diagnoses Not on filedocumented in this encounter
--- OUTSIDE RECORDS SUMMARY | 2024-07-31 08:41 | XMS_ITS | Encounter Summary ---
Author Organization [employer] Address [address] [place] [address] Care Team Providers Care Metal Bending Machine Operator Name Role Phone Unavailable Primary Care Provider Unavailabl e Encounter Details Date Type Department Care Team (Late st Contact Info) Description 07/27/2019 Transcribed Document [facility] [place] Family Medicine [facility] [place] [address] ProviderIrasema MD [facility] [place] [address] Social History Tobacco Use Types [...] Conversion Note - Irasema ProviderMD - 07/27/2019 3:12 PM CDT [facility] [place], [place] [id number] GUILLERMINA HINOJOSA :1940 Visit Time:07/25/2019 Your Visit Summary Your Care Team Admitting Physician - GRETA SOTOMAYOR MD-SNU Attending Physician - GRETA SOTOMAYOR MD-SNU Primary Care Physician - ELISEO VALENCIA MD-[facility] Referring Physician - [facility], NOT LISTED Your Diagnosis Lumbar radiculopathy, Radiculopathy, [...] Equipment for Home Use: Home Health Services: [facility]-- Community Services: Discharge Activity: Discharge Activity: No heavy lifting over 10 lbs Diet: Discharge Diet: Resume usual diet as tolerated Follow-Up Appointments Follow Up with GRETA SOTOMAYOR When 08/27/2019 01:45 PM EDT Comments with x rays at [facility] at 1:45 PM prior to appointment at 2:30 PM Where: [address] [place] [address]- Business (1) Follow Up with GRETA SOTOMAYOR When 08/06/2019 02:00 PM EDT Comments staple removal Where: [address] [place] [address]- Business (1) Medications What How Much When Instructions Next Dose acetaminophen-oxyCODONE (Percocet 7.5/ 325 oral tablet) 1 Tablet(s) Oral Four Times A Day as needed for for pain cyclobenzaprine (cyclobenzaprine 10 mg oral tablet) 1 Tablet(s) Oral Three Times A Day as needed for as needed for spasm albuterol (Ventolin HFA) 2 Puff(s) Inhalation Every 4 Hours as needed for as needed for wheezing atorvastatin 40 Milligram(s) Oral Every Day biotin 5,000 mcg ( 2 tab) Oral Every Day biotin (Hair, Skin & Nails) 1 Tablet(s) Oral Every Day clopidogrel (Plavix) 75 Milligram(s) Oral Every Day Restart 7 days after surgery escitalopram 20 Milligram(s) Oral Every Day furosemide (Lasix) 40 Milligram(s) Oral Three Times A Day as needed for Edema losartan 25 Milligram(s) Oral Every Day metoprolol (Metoprolol Succinate ER) 25 Milligram(s) Oral Every Day multivitamin (Vitamin B Complex 100) 1 Milliliter(s) Oral Every Day nitroglycerin 0.4 Milligram(s) SubLINgual Every 5 minutes as needed for as needed for chest pain pantoprazole 40 Milligram(s) Oral Every Day potassium gluconate 99 mg ( 2 tabs ) Oral Every Day pramipexole 2 Milligram(s) Oral At Bedtime rOPINIRole 2 Milligram(s) Oral At Bedtime spironolactone 25 [...] these instructions at home: Medicines ??? Take xjbs-dbh-xtmxjvr and prescription medicines only as told by [...] cannot use soap and water, use hand talent acquisition specialist. ? Change your bandage as told by [...] your pee (urine) pale yellow. ? Take vejq-emk-koecdtn or prescription medicines. ? Eat foods that [...] 05/27/2011 Document Revised: 05/17/2017 Document Reviewed: 05/17/2017 [employer] Interactive Patient Education ?? 2020 [email or web address]. acetaminophen and oxycodone (a SEET a MIN [...] may report side effects to FDA at 8-503-WVP-0619. What other drugs will affect acetaminophen and [...] affect acetaminophen and oxycodone, including prescription and etzp-bqw-rtxpspq medicines, vitamins, and herbal products. Not all [...] to ensure that the information provided by [employer]. ('Multum') is accurate, up-to-date, and complete, but no guarantee is made to that effect. Drug information contained herein may be time sensitive. [employer] information has been compiled for use by healthcare practitioners and consumers in the [place] and therefore [employer] does not warrant that uses outside of the [place] are appropriate, unless specifically indicated otherwise. [email or web address] drug information does not endorse drugs, diagnose patients or recommend therapy. [email or web address] drug information is an informational resource designed [...] effective or appropriate for any given patient. [employer] does not assume any responsibility for any aspect of healthcare administered with the aid of information [employer] provides. The information contained herein is not intended to cover all possible uses, directions, precautions, warnings, drug interactions, allergic reactions, or adverse effects. If you have questions about the drugs you are taking, check with your doctor, nurse or pharmacist. Copyright 6431-8764 [employer]. Version: .. Revision Date: 03/07/2019. cyclobenzaprine (paresh bronson) Amrix, [...] may report side effects to FDA at 1-906-SNW-1570. What other drugs will affect cyclobenzaprine? Using [...] drugs may affect cyclobenzaprine, including prescription and tdwz-lfz-dhgpdhv medicines, vitamins, and herbal products. Not all [...] to ensure that the information provided by [employer]. ('[employer]') is accurate, up-to-date, and complete, but no guarantee is made to that effect. Drug information contained herein may be time sensitive. [employer] information has been compiled for use by healthcare practitioners and consumers in the [place] and therefore [employer] does not warrant that uses outside of the [place] are appropriate, unless specifically indicated otherwise. [email or web address] drug information does not endorse drugs, diagnose patients or recommend therapy. [email or web address] drug information is an informational resource designed [...] effective or appropriate for any given patient. [employer] does not assume any responsibility for any aspect of healthcare administered with the aid of information [employer] provides. The information contained herein is not intended to cover all possible uses, directions, precautions, warnings, drug interactions, allergic reactions, or adverse effects. If you have questions about the drugs you are taking, check with your doctor, nurse or pharmacist. Copyright 3816-2372 [employer]. Version: 5.01. Revision Date: 11/09/2017. Emergency Awareness [...] Assistance with quitting is available by contacting 4-246-CPXV-NOW. This is a free resource providing counseling, [...] range between ( 0.0 and 7.0 ) [place]co #: 0.64 K/uL -- Normal range between ( 0.16 and 1.00 ) Eos #: 0.19 x10(3)/uL -- Normal range between ( 0.00 and 0.80 ) [place]co %: 5.1 % -- Normal range between [...] ) Urine Bilirubin Dipstick: Negative Urine Specific [place]: 1.018 -- Normal range between ( 1.005 [...] CR CT in OR Patient Name:GUILLERMINA HINOJOSA I have received and understand this information and was given the opportunity to ask questions. Patient/Termite Exterminator Helper Name: Patient/Termite Exterminator Helper Signature: Relationship to Patient: Clinician/Hospital Termite Exterminator Helper Signature: Date: Electronically signed by Levy, [facility] Conversion Underwriting Service Representative Best at 06/02/2022 1:50 PM CDT documented in this encounter Plan of Treatment Not on file documented as of this encounter Visit Diagnoses Not on filedocumented in this encounter
--- OUTSIDE RECORDS SUMMARY | 2024-07-31 08:41 | XMS_ITS | Encounter Summary ---
Author Organization [employer] Address [address] [place] [address] Care Team Providers Care Student Life Vice President Name Role Phone Unavailable Primary Care Provider Unavailabl e Encounter Details Date Type Department Care Team (Late st Contact Info) Description 07/19/2019 Transcribed Document [facility] [place] Family Medicine [address] [place] [address] ProviderIrasema MD [address] [place] [address] Social History Tobacco Use Types Packs/Day Years Used Date Smoking Tobacco: Never Assessed Comments Unknown Sex and Gender Information Value Date Recorded Sex Assigned at Female 08/11/2021 8:42 PM CDT Legal Sex Female 8:42 PM CDT Gender Identity Female 08/11/2021 8:42 PM CDT Sexual Orientation Not on file documented as of this encounter Miscellaneous Notes * Cerner Conversion Note - Historical Provider, - 07/19/2019 2:21 PM CDT Event Note Entered On: 07/19/2019 14:47 EDT Performed On: 07/19/2019 14:21 EDT by MARY ANN CALVERT RN Event Note Event Details : Other: Aicd Description of Event : Called [facility] ( [facility] ) , per Dr Mayes's request to have pacemaker AICD turned off during surgery. Requested he arrive at 1030 am MARY ANN CALVERT RN - 07/19/2019 14:21 EDT documented in this encounter Plan of Treatment Not on file documented as of this encounter Visit Diagnoses Not on filedocumented in this encounter
--- OUTSIDE RECORDS SUMMARY | 2024-07-31 08:41 | XMS_ITS | Encounter Summary ---
Author Organization [employer] Address [address] [place] [address] Care Team Providers Care Architect Marine Name Role Phone Unavailable Primary Care Provider Unavailabl e Encounter Details Date Type Department Care Team (Late st Contact Info) Description 06/25/[address] [facility] [place] Family Medicine [facility] [place] [address] ProviderIrasema MD [address] [place] [address] Social History Tobacco Use Types Packs/Day Years Used Date Smoking Tobacco: Never Assessed Comments Unknown Sex and Gender Information Value Date Recorded Sex Assigned at Female 08/11/2021 8:42 PM CDT Legal Sex Female 8:42 PM CDT Gender Identity Female 08/11/2021 8:42 PM CDT Sexual Orientation Not on file documented as of this encounter Miscellaneous Notes * Cerner Conversion Note - Irasema Sheriff MD - 06/25/2019 1:43 PM CDT Patient Education Materials Follows: Myelogram A myelogram is an imaging study [...] including vitamins, herbs, eye drops, creams, and supd-xzg-vnrzdsl medicines. ??? Previous problems you or members [...] 09/23/2004 Document Revised: 06/15/2016 Document Reviewed: 11/13/2015 [employer] Interactive Patient Education ? 2019 [employer] Spinal Headache A spinal headache is a severe headache that can happen after a person has had a lumbar puncture or epidural anesthesia. During these procedures, a needle is passed between the bones of the spine. The headache usually starts from a few hours to 1?2 days after that. The headache can last [...] may be replaced by: ? Drinking more fluids.? ? Getting fluids through an IV line [...] Follow these instructions at home: ??? Take ndrb-rph-uvgxndb and prescription medicines only as told by [...] 07/23/2002 Document Revised: 03/15/2018 Document Reviewed: 03/15/2018 [employer] Interactive Patient Education ? 2019 [employer]. Cerebrospinal Fluid Leak, Adult Cerebrospinal fluid [...] with your health care providers. ??? Take kakq-qkx-qjmafvl and prescription medicines only as told by [...] 06/11/2016 Document Revised: 08/20/2016 Document Reviewed: 06/11/2016 [employer] Interactive Patient Education ? 2019 [employer]. Lumbar Puncture, Care After This sheet [...] a bad smell. General instructions ??? Take rtcc-rxy-edpuqps and prescription medicines only as told by [...] 02/05/2014 Document Revised: 03/16/2017 Document Reviewed: 03/16/2017 [employer] Interactive Patient Education ? 2019 [employer] documented in this encounter Plan of Treatment Not on file documented as of this encounter Visit Diagnoses Not on filedocumented in this encounter
--- OUTSIDE RECORDS SUMMARY | 2024-07-31 08:41 | XMS_ITS | Encounter Summary ---
Author Organization [employer] Address [address] [place] [address] Care Team Providers Care Collections Director Name Role Phone Unavailable Primary Care Provider Unavailabl e Encounter Details Date Type Department Care Team (Late st Contact Info) Description 07/27/2019 Transcribed Document [facility] [place] [facility] [place] [address] ProviderIrasema MD [address] [place] [address] Social History Tobacco Use Types [...] Conversion Note - Irasema Sheriff MD - 07/27/2019 11:32 AM CDT Patient Education Materials Follows: Spinal Fusion, Adult, Care After This sheet gives you information about how to care for yourself after your procedure. Your doctor may also give you more specific instructions. If you have problems or questions, contact your doctor. Follow these instructions at home: Medicines ??? Take clec-ysa-gxcuvsa and prescription medicines only as told by [...] Leave the ice on for 20 minutes, 2?3 times a day. Surgery cut care ??? Follow instructions from your doctor about how to take care of your cut from surgery (incision). Make sure you: ? Wash your hands with soap and water before you change your bandage (dressing). If you cannot use soap and water, use hand charter coach driver. ? Change your bandage as told by [...] your pee (urine) pale yellow. ? Take tqri-edh-tgawwiv or prescription medicines. ? Eat foods that [...] 05/27/2011 Document Revised: 05/17/2017 Document Reviewed: 05/17/2017 [employer] Interactive Patient Education ? 2020 [employer]. Electronically signed by Suze Lockett Conversion Sewage Reticulation Drafting Officer Cerner at 06/02/2022 1:44 PM CDT documented in this encounter Plan of Treatment Not on file documented as of this encounter Visit Diagnoses Not on filedocumented in this encounter
--- OUTSIDE RECORDS SUMMARY | 2024-07-31 08:42 | XMS_ITS | Encounter Summary ---
Author Organization [employer] Address [address] [place] [address] Care Team Providers Care Pipeline Maintenance Supervisor Name Role Phone Unavailable Primary Care Provider Unavailabl e Encounter Details Date Type Department Care Team (Late st Contact Info) Description 07/25/2019 Transcribed Document [facility] Neurology - [address] [facility] [address] [place] [address] Sebastián Barboza MD [address] [place] [address] Social History Tobacco Use Types [...] Conversion Note - Sebastián Barboza MD - 07/25/2019 3:24 PM EDT DATE OF PROCEDURE: 07/25/2019 SURGEON: Sebastián Barboza MD PRIMARY CARE PHYSICIAN: Dr. Heath Rogers. PREOPERATIVE DIAGNOSES: 1. Intrathecal pump. The patient desires to have removed. 2. 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 POSTOPERATIVE DIAGNOSES: 1. Intrathecal pump. The patient desires to have removed. 2. 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 INDICATION FOR PROCEDURE: Radicular nerve pain, unresponsive to conservative management. PROCEDURE: 1. L3 through S1 laminectomy, bilateral facetectomies, and foraminotomies. 2. Bilateral iliac bolt fixation. 3. L3 through iliac posterior instrumentation. 4. L3 through S1 posterolateral fusion. 5. Removal of intrathecal pain pump including the catheter and repair of the dural opening. 6. Intraoperative CT scan with stereotactic navigation. CATERPILLAR TRACTOR OPERATOR: Salvador Suarez PA-C TYPE OF ANESTHESIA: GEA. DESCRIPTION OF PROCEDURE IN DETAIL: Once consent was noted to be on chart, Ms. Hinojosa was taken to the operating room. She was anesthetized and placed into the prone position on a Frank spine frame. A Abebe catheter was placed prior to turning. All pressure points were carefully checked and padded. Preoperative antibiotics were given. A time-out was called. A low-dose CT scan was performed to plan the skin incision as well as to place two Steinmann pins into the right iliac crest. A two-pin fixator was placed on these pins and reference array for further stereotactic navigation. A #10 blade was used to open the previously made incision over the battery. The cautery was used to dissect down to the battery/pump. Cautery was used to dissect down to the pump and it was removed. The catheter was cut. A #10 blade was used to make a midline incision from L3-S2. Bovie electrocautery was used to dissect down to into the lumbosacral fascia. Subperiosteal dissection was performed from L3-S2. The catheter was located, pulled through and tied off. At this time with retractors placed, a CT scan was performed from L3 to the pelvis. Using stereotactic navigation, the usual freehand techniques, the PurePredictive system, pedicle screws were placed at L3, L4, L5 on the left and S1 bilaterally. The right L5 screw was placed and removed, but inferior and the pedicle did not accommodate the screw well. Being in the middle of the construct, I thought it was safe to leave the right L5 screw out. The nerve root was clearly unharmed from the screw placement. S2AI screws were placed bilaterally using stereotactic navigation with the pedicle screws, the trajectory was tapped and a spring probe was placed down the trajectory verifying good bone circumferentially prior to screw placement. A repeat CT scan showed good placement of all hardware. Screw augmentation was performed at L3 to account to accommodate for the patient's osteopenia/osteoporosis. The laminectomy was performed at L3-4, L4-5, and L5-S1. The catheter was removed and two 4-0 Nurolons used to close the dural opening. This was appeared to be a watertight seal, but was reinforced with DuraSeal. Bilateral facetectomies were performed at L3-4, L4-5 and L5-S1. The exiting nerve roots were freed each level. Scar tissue was removed off the right L5 nerve root fully freeing it. The Grewal ball probe passed easily along the medial pedicle wall at each segment and out the foramina at each segment, verifying full decompression. Posterolateral bone was decorticated. Additional allograft and autograft were laid in place for posterolateral fusion. A prasanth was bent to contour to the polyaxial heads from L3 to the iliac. Set screws were torqued to factory specifications. A GIAN drain was left in the epidural space and one Vicryl reapproximated the paraspinous muscles and fascia, 2-0 Vicryls closed the space and closed the skin subcuticularly. The skin was stapled. Bacitracin and Covaderm were was applied. Salvador Suarez assisted throughout the surgery and helped perform the closure. SPECIMEN SENT: Intrathecal pain pump and catheter. ESTIMATED BLOOD LOSS: 300 mL. DRAINS: Frank Anthony. COMPLICATIONS: None. /[id number] Sebastián Barboza MD MPT/AQ / MPT / MODL /[id number] CC: Heath Rogers Dr documented in this encounter Plan of Treatment Not on file documented as of this encounter Visit Diagnoses Not on filedocumented in this encounter
--- OUTSIDE RECORDS SUMMARY | 2024-07-31 08:42 | XMS_ITS | Encounter Summary ---
Author Organization [employer] Address [address] [place] [id number] Care Team Providers Care Internet Marketing Director Name Role Phone Unavailable Primary Care Provider Unavailabl e Encounter Details Date Type Department Care Team (Late st Contact Info) Description 07/25/2019 Transcribed Document [facility] [place] Family Medicine [facility] [place] [address] ProviderIrasema MD [facility] [place] [address] Social History Tobacco Use Types [...] Irasema ProviderMD - 07/25/2019 12:07 PM CDT [facility] Main OR Preop Summary Primary Physician: GRETA SOTOMAYOR MD-SNU Finalized Date/Time: 07/25/19 14:37:09 Pt. Name: GUILLERMINA PEARCE D.O.B./Sex: 1940 Female Med Rec #: [id number] Physician: GRETA SOTOMAYOR MD-SNU Financial #: [id number] Pt. Type: I Room/Bed: ASA/3 Admit/Disch: 07/25/19 06:54:00 - Institution: [facility] PreOp Case Times Entry 1 In Preop 07/25/19 09:09:00 Ready for Holding n/a Room Patient Ready for 07/25/19 10:50:00 Surgery Patient Out of Preop 07/25/19 11:25:00 Patient Out of n/a Holding Room Last Modified By: Cindy Arevalo RN 07/25/19 14:37:08 [facility] PreOp Case Times Audit 07/25/19 14:37:08 Resource Agent: [id number] Modifier: [email or web address] <+> 1 Patient Out of Preop Finalized By: Cindy Arevalo RN Document Signatures Signed By: Cindy Arevalo RN 07/25/19 14:37 Electronically signed by [facility] Conversion Email Engineer Cerner at 06/02/2022 2:00 PM CDT documented in this encounter Plan of Treatment Not on file documented as of this encounter Visit Diagnoses Not on filedocumented in this encounter
--- OUTSIDE RECORDS SUMMARY | 2024-07-31 08:42 | XMS_ITS | Data Portability ---
Author Organization SYLVIA Timmy pena, ANN BRYAN CLOSED Address [address] [facility] [address] [place] [address] Assessment Encounter Date Assessment Date Assessment LastModified by Organization Details LastModified Time 08/06/2019 08/06/2019 Pt is s/p L3-S1 PLIF POSS. ILIAC BOLTS PAIN PUMP REMOVAL 07-25-19, Dr. Greta Barobza. Pt is in the office for staple removal. [place] removed. Pt tolerated the procedure well. [email or web address] Not available 08/06/2019 14:46:49 08/27/2019 08/27/2019 Mrs. Hinojosa is a 78-year-old female status post L3-S1 fusion. She is doing well at this time. Her x-rays look great. I gave her printed copy. We discussed her limitations going forward. She may increase her level of activity. We will see her back in 2 months with repeat x-rays of the lumbar spine for a PA visit. [email or web address] Not available 08/27/2019 15:22:12 02/09/2021 02/09/2021 HPI: Ms. Dominga chapin is a 80-year-old female with history of L3 to iliac fusion and pain pump removal 07/25/[address] Barboza who presents today for recheck after physical therapy, last seen here 10/27/2020, no new imaging. She describes pain in her low back which radiates down the posterior aspect of her right lower extremity accompanied by numbness and tingling, and patient says she is not sure if it goes all the way to her foot or if it stops somewhere higher. She says that is worse when she is up and about, better when resting. Says she has some left lower extremity pain as well, but definitely less than the right, and nowhere near as severe. At last visit, she was recommended physical therapy which she completed with minimal improvement. She feels like she would like to have her issues addressed surgically if that is a possibility. PHYSICAL EXAM: No neuro deficits noted, no issues with prior midline lumbar surgical incision which is well-healed, no hyperreflexia IMAGING no new images to review ASSESSMENT: PA visit. Patient still having issues despite reasonable conservative management. Would like to proceed with lumbar MRI to check for stenosis. Patient will be a surgical candidate or candidate for injections based on this MRI. She is completed greater than 6 weeks of physical therapy with the last 6 months. Also would like to check lumbar CT to evaluate how well she has fused and if she has developed a pseudoarthrosis as well as get a better look at the hardware. Would also like to check flexion-extension lumbar x-rays to see if there is anything unstable. We also discussed EMG but patient would like to defer at this time depending on what the other imaging shows PLAN: Lumbar MRI with and without contrast Lumbar flexion-extension x-ray Lumbar CT [email or web address] Not available 02/09/2021 13:10:47 Plan of Treatment Reminders Order Date Submit Date Provider Last Modified By Organization Details Last Modified Time Details Appointments None record ed. Lab None record ed. Referral None record ed. Procedures None record ed. Surgeries None record ed. Imaging None record ed. Medication Orders None record ed. Patient TargetsNo targets recorded. Patient Instructions Encounter Date Encounter Id Patient Instructions Last Modified By Organization Details Last Modified Time 10/29/2019 [id number] 20 minutes total time was spent with the patient. Over 50% of that time was spent counseling and discussing radiology and future treatment plans. [email or web address] Not available 10/29/2019 13:42:52 Reason for Referral None Reported. Results Created Date Observation Date Name Description Value Unit Range Abnormal Flag Note LastModifiedBy Organization Detail LastModifiedTime 08/27/19 20 08/27/2019 XR, lumbo sacra l spine , 2 or 3 view [place] [address] [place] [address] Magui munguia Name: GUILLERMINA munguia : 1940 Magui munguia 19 Orderi ng Provid er: GABY BARBOZA EXAM DATE: 2019 EXAM: XR LUMBAR AP/LAT CLINIC AL INFORM ATION: Postop erativ e. IMAGES PROVID ED: AP, latera l, and coned- down views of the lumbar spine. COMPAR MAXIMO: None. FINDIN GS AND IMPRES DESIREE: Spinal fusion is noted at L3-S2 level with pedicu lar screws and connec ting rods. Surgic al hardwa re is satisf actori ly placed . No eviden ce of loosen ing or infect ion is seen. Degene rative change s are seen at other levels . Interp reted By: Babatunde Weinstein MD Electr onical ly Signed By: Babatunde Weinstein MD on 020 2:22 PM [email or web address] [facility] Radiology [address], [address], 09/25/2019 15:39:20 10/29/19 20 10/29/2019 XR, lumbo sacra l spine , 2 or [address] [address] Patien t Name: GUILLERMINA RECINOS Patien nilda : 1940 Patien t 19 Orderi ng Provid er: GABY Abbasi СВЕТЛАНА EXAM DATE: 2019 EXAM: XR LUMBAR AP/LAT CLINIC AL INFORM ATION: Postop erativ e. IMAGES PROVID ED: AP, latera l, and coned- down views of the lumbar spine. COMPAR MAXIMO: None. FINDIN GS AND IMPRES DESIREE: Spinal fusion is noted at L3-S2 level with pedicu lar screws and connec ting rods. Surgic al hardwa re is satisf actori ly placed . No eviden ce of loosen ing or infect ion is seen. Degene rative change s are seen at other levels . Interp reted By: Babatunde Weinstein MD Electr onical ly Signed By: Babatunde Weinstein MD on 020 12:41 PM [email or web address] [facility] Radiology [facility] [address] [place], [address], 11/29/2019 16:29:02 08/05/20 21 09/18/2020 XR, lumbo sacra l spine , 2 or [address] [place] [address] Magui munguia Name: GUILLERMINA munguia : 1940 Magui munguia 19 Orderi ng Provid er: NISHANT [facility] S EXAM DATE: 2020 EXAM: XR LUMBAR AP/LAT CLINIC AL INFORM ATION: Postop erativ e. IMAGES PROVID ED: AP, latera l, and coned- down views of the lumbar spine. COMPAR MAXIMO: None. FINDIN GS AND IMPRES DESIREE: Spinal fusion is noted at L3-S2 level with pedicu lar screws and connec ting rods. Surgic al hardwa re is satisf actori ly placed . No eviden ce of loosen ing or infect ion is seen. Degene rative change s are seen at other levels . Interp reted By: Babatunde Weinstein MD Electr onical ly Signed By: Babatunde Weinstein MD on 09/19/19 2:26 PM [email or web address] [facility] Radiology [facility] [address] [place] [address], [address], 09/24/2020 08:18:39 09/19/19 21 09/18/2020 XR, thora cic spine , [facility] [address] [place] [address] Magui munguia Name: GUILLERMINA mnuguia : 1940 Magui munguia 19 Orderi ng Provid er: [facility] S EXAM DATE: 2020 EXAM: XR THORAC IC AP/LAT CLINIC AL INFORM ATION: Back pain. IMAGES PROVID ED: AP, and latera l views of the thorac ic spine. COMPAR MAXIMO: None. FINDIN GS: Curvat ure, alignm ent, verteb ral body height s and disc spaces are normal . Tiny osteop hytes are seen at multip le levels . No radiog raphic eviden ce of injury is noted. IMPRES DESIREE: Mild degene rative change s of the thorac ic spine. Interp reted By: Babatunde Weinstein MD Electr on ly Signed By: Babatunde Weinstein MD on 09/19/19 2:27 PM [email or web address] [facility] Radiology [facility] [address] [place], [address], 09/24/2020 08:18:40 03/23/19 22 03/23/2021 CT, lumba r spine , w/o contr ast No observ ation record ed. [email or web address] [facility] Scheduling [address], [place], [address], 04/03/2021 09:03:26 03/23/19 22 03/23/2021 MRI, lumba r spine , w/wo contr ast No observ ation record ed. [facility] Scheduling [address], [place], [address], 04/03/2021 09:03:51 04/03/19 22 03/23/2021 MRI, lumba r spine , w/wo contr ast No observ ation record ed. [email or web address] [facility] [address], [place], [address], 04/10/2021 13:34:12 Result Notes Documentation Provider Name and Address Organization Details Recorded Time Xr, Lumbosacral Spine, 2 Or 3 View : [facility] [address] [place] [address] Patient Name: GUILLERMINA HINOJOSA Patient : 1940 Patient Ordering Provider: GRETA BARBOZA EXAM DATE: 08/27/2019 EXAM: XR LUMBAR AP/LAT CLINICAL INFORMATION: Postoperative. IMAGES PROVIDED: AP, lateral, and coned-down views of the lumbar spine. COMPARISON: None. FINDINGS AND IMPRESSION: Spinal fusion is noted at L3-S2 level with pedicular screws and connecting rods. Surgical hardware is satisfactorily placed. No evidence of loosening or infection is seen. Degenerative changes are seen at other levels. Interpreted By: Emerson Weinstein [facility] 09/25/2019 15:39:20 Xr, Lumbosacral Spine, 2 Or 3 View : [place] [address] Patient Name: GUILLERMINA HINOJOSA Patient : 1940 Patient Ordering Provider: GRETA BARBOZA EXAM DATE: 10/29/2019 EXAM: XR LUMBAR AP/LAT CLINICAL INFORMATION: Postoperative. IMAGES PROVIDED: AP, lateral, and coned-down views of the lumbar spine. COMPARISON: None. FINDINGS AND IMPRESSION: Spinal fusion is noted at L3-S2 level with pedicular screws and connecting rods. Surgical hardware is satisfactorily placed. No evidence of loosening or infection is seen. Degenerative changes are seen at other levels. Interpreted By: Emerson Weinstein MD Rd [facility] 11/29/2019 16:29:02 Xr, Lumbosacral Spine, 2 Or 3 View : [place] [address] Patient Name: GUILLERMINA HNIOJOSA Patient : 1940 Patient Ordering Provider: NISHANT [place] EXAM DATE: 09/18/2020 EXAM: XR LUMBAR AP/LAT CLINICAL INFORMATION: Postoperative. IMAGES PROVIDED: AP, lateral, and coned-down views of the lumbar spine. COMPARISON: None. FINDINGS AND IMPRESSION: Spinal fusion is noted at L3-S2 level with pedicular screws and connecting rods. Surgical hardware is satisfactorily placed. No evidence of loosening or infection is seen. Degenerative changes are seen at other levels. Interpreted By: Emerson Weinstein MD [facility] 09/24/2020 08:18:39 Xr, Thoracic Spine, 2 View : [place] [address] Patient Name: GUILLERMINA HINOJOSA Patient : 1940 Patient Ordering Provider: NISHANT [place] EXAM DATE: 09/18/2020 EXAM: XR THORACIC AP/LAT CLINICAL INFORMATION: Back pain. IMAGES PROVIDED: AP, and lateral views of the thoracic spine. COMPARISON: None. FINDINGS: Curvature, alignment, vertebral body heights and disc spaces are normal. Tiny osteophytes are seen at multiple levels. No radiographic evidence of injury is noted. IMPRESSION: Mild degenerative changes of the thoracic spine. Interpreted By: Emerson Weinstein MD [facility] 09/24/2020 08:18:40 Problems Name Problem SNOMED Code Status Onset Date Resolution Date Notes Provider Name and Address Organization Details Recorded Time Lumbar radiculopathy 144585823 Active 2020 NISHANT [place] PA-C [address] [place], [address], [facility] 10:26:26 Problem Notes None recorded. Procedures Surgical History Date Name Laterality Status Provider Name and Address Organization Details Recorded Time 07/25/19 20 POSTERIOR LUMBAR INTERBODY FUSION, ADDITIONAL INTERSPACE (SURG) completed [facility] 07/31/2019 13:49:44 04/30/19 20 Electromyography (EMG) with Nerve Conduction Study (NCV) completed Maria L Romero (Nicky) [facility] 04/30/2019 11:42:42 04/09/19 Interpretation completed ANGELA JACQUES PA-C [address] [place], [address], [facility] 04/09/2019 09:32:26 Total Hysterectomy completed [facility] 04/09/2019 08:41:09 Cholecystectomy completed [facility] 04/09/2019 08:41:19 Back Surgery completed [facility] 04/09/2019 08:41:25 placement of stent in cardiac conduit completed [facility] 04/09/2019 08:41:50 Imaging Results None recorded. Procedure Notes None recorded. Medical Equipment None Reported. Allergies No known drug allergies Medications Name Sig Start Date Stop Date Status Note LastModified by Organization Details LastModified Time losartan 50 mg tablet take 1 tablet by mouth once daily active Not Available Not Available No t Available cyclobenzapr ine 10 mg tablet Take 1 tablet 3 times a day by oral route as needed. active Not Available Not Available No t Available pramipexole 1 mg tablet active Not Available Not Available Not Available furosemide 40 mg tablet active Not Available Not Available Not Available atorvastatin 40 mg tablet TAKE 1 TABLET BY MOUTH ONCE DAILY active Not Available Not Available No t Available tizanidine 4 mg tablet active Not Available Not Available No t Available metoprolol succinate ER 50 mg tablet,exten ded release 24 hr active Not Available Not Available Not Available Medrol (Talha) 4 mg tablets in a dose pack Take 1 dose pk by oral route as directed. 2021 active Not Available Not Available Not Avai lable clopidogrel 75 mg tablet TAKE 1 TABLET BY MOUTH ONCE DAILY active Not Available Not Available No t Available spironolacto ne 25 mg tablet TAKE 1 TABLET BY MOUTH ONCE DAILY FOR FLUID active Not Available Not Available No t Available oxycodone-ac etaminophen 5 mg-325 mg tablet Take 1 tablet every 6 hours by oral route as needed. active Not Available Not Available N ot Available potassium chloride ER 20 mEq tablet,exten ded release(part /cryst) active Not Available Not Available Not Available ropinirole 2 mg tablet active Not Available Not Available No t Available pantoprazole 40 mg tablet,delay ed release TK 1 T PO BID active Not Available Not Available No t Available promethazine 25 mg tablet TAKE 1 TABLET BY MOUTH EVERY 6 HOURS NEEDED FOR NAUSEA/VOMI TING active Not Available Not Available No t Available losartan 25 mg tablet active Not Available Not Available No t Available metoprolol succinate ER 25 mg tablet,exten ded release 24 hr active Not Available Not Available Not Available oxycodone-ac etaminophen 7.5 mg-325 mg tablet TK 1 T PO QID PRN P active Not Available Not Available No t Available escitalopram 20 mg tablet TK 1 T PO QD active Not Available Not Available No t Available Suprep Bowel Prep Kit 17.5 gram-3.13 gram-1.6 gram oral solution active Not Available Not Available Not Available Fluad 65yr up(PF)45 mcg(15 mcgx3)/0.5 mL intramuscula r syringe inject 0.5 milliliters intramuscul leif active Not Available Not Available No t Available Vitals Date Recorded Body height Body mass index (BMI) Body weight Systolic blood pressure Diastolic blood pressure Provider Name and Address Organization Details Last Updated DateTime 08/27/2019 152.4 cm 30.1 kg/m2 56193.22 g 126 mm[Hg] 82 mm[Hg] [facility] 15:12:59 Date Recorded Body height Body mass index (BMI) Body weight Heart rate Systolic blood pressure Diastolic blood pressure Provider Name and Address Organization Details Last Updated DateTime 1 152.4 cm 31.4 kg/m2 05256.3 7 g 70 /min 130 mm[Hg] 47 mm[Hg] [facility] 1 10:10:04 Date Recorded Body height Body mass index (BMI) Body weight Heart rate Systolic blood pressure Diastolic blood pressure Provider Name and Address Organization Details Last Updated DateTime 0 152.4 cm 31.1 kg/m2 83549.1 9 g 85 /min 129 mm[Hg] 63 mm[Hg] [facility] 0 13:14:04 Date Recorded Body height Provider Name an d Address Organization Details Last Updated DateTime 02/09/2021 152.4 cm [facility] 02/09/2021 11:43:52 Social History None recorded. Functional Status None recorded. Mental Status None recorded. Family History Relationship Description Onset Age of this Age Resolved Age Notes LastModified by Organization Details LastModified Time Unspecified Relation Myocardial infarction [email or web address] Not available 03/18 08:40:57 Medical History Condition Response Heart Attack (LA) Y Cancer Y Hypertension Y Gynecological HistoryNo gynecological history recorded. Obstetrics History GPAL:G 0 P 0 0 0 0 Past Encounters Encounter ID Performer Location Encounter Start Date Encounter Closed Date Diagnosis/Indication Diagnosis SNOMED-CT Code Diagnosis ICD10 Code Diagnosis Note [id number] ANGELA JACQUES PA-C [facility] [address] [place] [address] 04/09/2019 08:27:12 04/12/2019 10:28:57 Lumbar spondylosis 372762484 M47.896 -The patient presents to discuss progressiv e mix axial and mechanical low back pain with referred pain into the bilateral hips and down the right leg in an L5 dermatomal pattern. Her spinal history is significan t for 2 prior lumbar operations which sound like discectomi es 15 years ago, and more recently a Dilaudid intratheca l pain pump placed [address] Martinez. We reviewed her CT myelogram images in the office today. This shows multilevel spondylosi s most pronounced at L3-4 and L4-5 with more moderate findings at L5-S1. There is no critical stenosis. Her back pain is the predominat ing symptom. While possible the patient could benefit from a multilevel lumbar fusion, this would be an option of last resort. We'll obtain a set of lower extremity nerve studies to look for a focal area of radiculopa thy could indicate a more focal surgical interventi on to address the referred pain into the hips and right leg. We will call her with results of the study and our further recommenda tions. We returned the CD problems of the imaging back to her today. She is happy with this plan. Thanks for having her see us today. Patient seen and evaluated attending physician, Dr. Barboza. [id number] RASHAWN STODDARD MD NEUROLOGY [facility] CLOSED [address] [place] [address] 04/30/2019 10:23:42 04/30/2019 12:32:12 Low back pain 276196462 M54.5 Lumbar radiculopathy 128 164069 M54.16 Skin sensa tion disturbance 20483805 R20.9 [id number] GRETA BARBOZA MD NEUROSURG [facility] CLOSED [address] [place] [address] 06/18/2019 08:49:16 06/19/2019 16:44:59 Lumbar radiculopathy 826558661 M54.16 Time spent reviewing images, discussing the diagnosis and coordinati ng care: 25min [id number] GRETA BARBOZA MD SURGERY SCHEDULE [address] [place] [address] 07/25/2019 16:22:49 07/26/2019 14:50:46 [id number] GRETA BARBOZA MD NEUROSURG [facility] CLOSED [address] [place] [address] 08/06/2019 14:04:22 08/06/2019 14:47:36 [id number] GRETA BARBOZA MD [facility] [address] [place] [address] 08/27/2019 14:20:02 08/29/2019 11:27:07 Postoperative care [id number] Z48.89 [id number] HOSSEIN OSEGUERA PA-C [facility] [address] [place] [address] 10/29/2019 12:46:33 10/29/2019 13:58:36 Postoperative visit [id number] Z09 patient is a 78-year-ol d female status post L3-S1 fusion and pain pump removal on 07/25/[address] Greta Barboza. She is doing very well today and does not have any new complaints . AP and lateral lumbar x-rays performed this morning at the [facility] were reviewed. They showed correct placement of hardware with no evidence of looseing or infection. Copies of the radiology were given to the patient. at this time patient is released from our care in regards to the surgery. Patient was told to follow up as needed. Patient was told to contact the office with any further questions. Patient was agreeable to this plan. [id number] NISHANT [place] PA-C [facility] [address] [place] [address] 10/27/2020 09:38:55 10/28/2020 09:04:06 Lumbar radiculopathy 508288925 M54.16 79-year-ol d female with history of an L3 iliac fusion [address] Hernandez with right-side d low back pain after a syncopal fall 2 months ago. X-rays of the thoracic and lumbar spine reviewed, show stable placement of the hardware, no evidence of hardware failure or fracture. Patient is neurologic ally intact. Recommend a trial of physical therapy. Should she not see any benefit with PT, consider update more advanced imaging. We will have her back in 3 months to track her progress. [id number] PAVEL BECKMAN PA-C [facility] [address] [place] [address] 02/09/2021 11:02:36 02/10/2021 09:34:17 Lumbar radiculopathy 948852601 M54.16 Health Concerns Section Related Observation LastModified by Organization Detai ls LastModified Time None Recorded Concern Status LastModified by Organization Details LastModified Time None Recorded Advance Directives Directive None Recorded Payers Insurance Date Sequence Insurance Name Policy Number Policy Ford Covered Member ID Ford Member ID Guarantor Name 02/06/2021 2 [place] [id number] Guillermina Hinojosa [id number] Guillermina Hinojosa 02/06/2021 1 [place] Guillermina Hinojosa [id number] Guillermina Hinojosa Notes Date Note Type Note Provider Name and Address Organization Details Recorded Time 08/27/2019 text/html Mrs. Hinojosa is doing well after a L3-S1 fusion with removal of pain pump. She denies severe pain at this time and is taking only Tylenol. She underwent x-rays today at her first postoperative visit. Her surgery was on July 25, 2019. GRETA BARBOZA MD [address] [place] [address], [address], [facility] 08/27/2019 15:22:25 10/29/2019 text/html patient is a 78-year-old female status post L3-S1 fusion and pain pump removal on 07/25/[address] Greta Barboza. She is doing very well today and does not have any new complaints. Patient states that the leg and lower back pain that she was having prior to surgery is mostly gone. She does complain of some soreness in the lumbar region and a little bit of intermittent leg pain but she believes it is due to her increase in physical activity. She does report a 3 out of 10 and aching sore pain in her back. Increasing physical activity exacerbates the pain and Tylenol relieves the pain well. she had no other questions or concerns at this time Patient did have AP and lateral lumbar x-rays performed this morning 10/29/19 at the [facility]. HOSSEIN OSEGUERA PA-C [facility] [place], [address], [facility] 10/29/2019 13:43:22 10/27/2020 text/html 79-year-old fema le with history of an ulcerated iliac fusion in [address] Hernandez here for follow-up of her right sided low back and hip pain after a fall following a syncopal episode 2 months ago. Patient was seen by her primary care doctor for the syncopal event, she received transfusions, she also has issues with low blood sugar. Patient was given steroids for the development of right-sided low back pain, this had no effect. Denies any pain radiating down the legs. Pain is worse with activity. Better she rests. She can only walk 10-15 minutes without the right side of her low back becoming quite painful. She has not had any physical therapy. She had x-rays of the thoracic and lumbar spine prior to this appointment. NISHANT [place] PA-C [address] [place], [address], [facility] 10/27/2020 10:27:23 02/09/2021 text/html Ms. Hinojosa is a 80-year-old female with history of L3 to iliac fusion and pain pump removal 07/25/[address] Barboza who presents today for recheck after physical therapy, last seen here 10/27/2020, no new imaging. She describes pain in her low back which radiates down the posterior aspect of her right lower extremity accompanied by numbness and tingling, and patient says she is not sure if it goes all the way to her foot or if it stops somewhere higher. She says that is worse when she is up and about, better when resting. Says she has some left lower extremity pain as well, but definitely less than the right, and nowhere near as severe. At last visit, she was recommended physical therapy which she completed with minimal improvement. She feels like she would like to have her issues addressed surgically if that is a possibility. PAVEL BECKMAN PA-C [address] [place], [address], [facility] 02/09/2021 13:11:20 OBGyn Episode No OBEpisode recorded.
--- OUTSIDE RECORDS SUMMARY | 2024-07-31 08:42 | XMS_ITS | Encounter Summary ---
Author Organization [employer] Address [address] [place] [address] Care Team Providers Care Drive Away Driver Name Role Phone Unavailable Primary Care Provider Unavailabl e Encounter Details Date Type Department Care Team (Late st Contact Info) Description 07/25/2019 Transcribed Document [facility] [place] [address] [place] [address] ProviderIrasema MD [address] [place] [address] Social History Tobacco Use Types [...] Cerner Conversion Note - Historical ProviderMD - 07/25/2019 5:00 PM CDT Chart Check - Review Order Profile Entered On: 07/25/2019 16:35 EDT Performed On: 07/25/2019 17:00 EDT by Rosalva Kay, RN Chart Check Powerplans Initiated/Discontinued as Appropriate : Yes All Active Orders Reviewed : Yes Rosalva Kay, RN - 07/25/2019 16:35 EDT documented in this encounter Plan of Treatment Not on file documented as of this encounter Visit Diagnoses Not on filedocumented in this encounter
--- OUTSIDE RECORDS SUMMARY | 2024-07-31 08:42 | XMS_ITS | Encounter Summary ---
Author Organization [employer] Address [address] [place] [address] Care Team Providers Care Boring Machine Operator Double End Name Role Phone Unavailable Primary Care Provider Unavailabl e Encounter Details Date Type Department Care Team (Late st Contact Info) Description 07/25/2019 Transcribed Document [facility] [place] [address] [place] [address] ProviderIrasema [place] [address] Social History Tobacco Use Types [...] Conversion Note - Historical ProviderMD - 07/25/2019 2:19 PM CDT Pain Assessment Entered On: 07/25/2019 16:08 EDT Performed On: 07/25/2019 15:50 EDT by Ml Wilburn RN Intervention Information: fentaNYL Performed by Ml Wilbrun RN on 07/25/2019 15:20:00 EDT fentaNYL,25mcg IV Push,Right Hand,Pain (Moderate 4-6) Pain Assessment Pain Assessment : Follow-up assessment Pain Scale Goal : 4 Pain Location Comment : pt asleep Ml Wilburn RN - 07/25/2019 16:08 EDT documented in this encounter Plan of Treatment Not on file documented as of this encounter Visit Diagnoses Not on filedocumented in this encounter
--- OUTSIDE RECORDS SUMMARY | 2024-07-31 08:42 | XMS_ITS | Encounter Summary ---
Author Organization [employer] Address [address] [place] [address] Care Team Providers Care Die Holder Name Role Phone Unavailable Primary Care Provider Unavailabl e Encounter Details Date Type Department Care Team (Late st Contact Info) Description 07/27/2019 Transcribed Document [facility] [place] [address] [place] [address] ProviderIrasema MD [address] [place] [address] Social History Tobacco Use Types [...] Conversion Note - Historical ProviderMD - 07/27/2019 11:33 AM CDT Stroke/Warfarin Instructions Entered On: 07/27/2019 11:33 EDT Performed On: 07/27/2019 11:33 EDT by SHAHID KEY RN Stroke/Warfarin Instructions Stroke/TIA Discharge Ins : N/A Warfarin Discharge Ins : N/A SHAHID KEY RN - 07/27/2019 11:33 EDT documented in this encounter Plan of Treatment Not on file documented as of this encounter Visit Diagnoses Not on filedocumented in this encounter
--- OUTSIDE RECORDS SUMMARY | 2024-07-31 08:42 | XMS_ITS | Clinical Summary ---
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 Shilpa Mora MA Spondylolisthe sis, lumbar region LUMBOSACRAL RADICULOPATHY 1599015 (SNOMED CT) Active 05/25 Salvador Dang MA Lumbosacral radiculopathy FOLLOW-UP EXAMINATION, AFTER SURGERY NEC Z09 (ICD-10-C M) Active 02/28 Randy Spicer MD Encounter for follow-up examination after completed treatment for conditions other than malignant neoplasm DEGENERATIVE DISC DISEASE, LUMBOSACRAL SPINE W/RADICULOPATHY 4969402 (SNOMED CT) Active 10/24 Isaiah Sam MD Lumbosacral radiculopathy Medications Medication Instructions Start Date Stop Date Generic Name [facility] Provider MEDROL 4 MG TBPK as directed 09/28 METHYLPREDNISOLONE [id number] Randy Spicer MD ZANAFLEX CAPSULE Non-[place] 03/14 TIZANIDINE HCL CAPS [id number] Shilpa Mora MA RANEXA TABLET EXTENDED RELEASE 12 HOUR Non-[place] 03/14 RANOLAZINE [id number] Shilpa Mora MA MIRAPEX 1 MG ORAL TABLET Non-[place] 03/14 PRAMIPEXOLE DIHYDROCHLORIDE [id number] Shilpa Mora MA PROTONIX 40 MG PACK Non-[place] 03/14 PANTOPRAZOLE SODIUM 43331573958 Shilpa Mora MA ISOSORBIDE MONONITRATE TABS -03/14 ISOSORBIDE MONONITRATE TABS 58958889585 Shilpa Mora MA HYDROCHLOROTHIAZIDE 25 MG TABS -Graf 03/14 HYDROCHLOROTHIAZIDE [id number] Shilpa Mora MA NEURONTIN 600 MG TABS -03/14 GABAPENTIN 79414309284 Shilpa Mora MA LEXAPRO 10 MG TABS -Graf 03/14 ESCITALOPRAM OXALATE 60635740264 Shilpa Mora MA BENTYL 20 MG ORAL TABLET -Graf 03/14 DICYCLOMINE HCL 86246801034 Shilpa Mora MA PLAVIX 75 MG TABS -Graf 03/14 CLOPIDOGREL BISULFATE [id number] Shilpa Mora MA LIPITOR 40 MG TABS -03/14 ATORVASTATIN CALCIUM [id number] Shilpa Mora MA PEPCID 20 MG TABS -Graf 10/24 FAMOTIDINE 54726048826 Shilpa Mora MA LEXAPRO 10 MG TABS -Graf 10/24 ESCITALOPRAM OXALATE 78542063201 Shilpa Mora MA PROTONIX 40 MG PACK -Graf 10/24 PANTOPRAZOLE SODIUM 50116642557 Shilpa Mora MA NITROSTAT 0.4 MG SUBL Graf 10/24 NITROGLYCERIN 52271330520 Shilpa Mora MA BENTYL 20 MG ORAL TABLET -10/24 DICYCLOMINE HCL [id number] Shilpa Mora MA MIRAPEX 1.5 MG ORAL TABLET -Graf 10/24 PRAMIPEXOLE DIHYDROCHLORIDE 50593591904 Shilpa Mora MA PLAVIX 75 MG TABS -Graf 10/24 CLOPIDOGREL BISULFATE 35771130567 Shilpa Mora MA ZOCOR 20 MG TABS -Graf 10/24 SIMVASTATIN [id number] Shilpa Mora MA COREG 3.125 MG TABS Non-Graf 10/24 CARVEDILOL [id number] Shilpa Mora MA ULTRAM 50 MG ORAL TABLET 1 q 6 - 8 prn 10/24 TRAMADOL HCL 86959341503 Shilpa Mora MA FLEXERIL 10 MG TABS 1 qhs, and 1/2 -1 q 8 prn during the day, max of 3 a day 10/24 CYCLOBENZAPRINE HCL [id number] Shilpa Mora MA PERCOCET 5-325 MG TABS 1-2 q 4-6 hrs. prn pain 10/27 OXYCODONE-ACETAMINOP HEN 71400262001 Shilpa Mora MA MEDROL 4 MG TBPK as directed 10/27 METHYLPREDNISOLONE [id number] Shilpa Mora MA NORCO 7.5-325 MG ORAL TABLET 1 QID 11/13 HYDROCODONE-ACETAMIN OPHEN 27908542941 Shilpa Mora MA VICODIN 5-300 MG ORAL TABLET 1 QID 02/14 HYDROCODONE-ACETAMIN OPHEN 03587990505 Shilpa Mora MA VICODIN 5-300 MG ORAL TABLET 1 QID 02/14 HYDROCODONE-ACETAMIN OPHEN 21597828728 Randy Spicer MD NORCO 7.5-325 MG ORAL TABLET 1 QID 11/13 HYDROCODONE-ACETAMIN OPHEN 04673097776 Randy Spicer MD MEDROL 4 MG TBPK as directed 10/27 METHYLPREDNISOLONE [id number] Randy Spicer MD PERCOCET 5-325 MG TABS 1-2 q 4-6 hrs. prn pain 10/27 OXYCODONE-ACETAMINOP HEN 99886179609 Randy Spicer MD PEPCID 20 MG TABS Non-Graf 10/24 FAMOTIDINE [id number] Isaiah Sam MD LEXAPRO 10 MG TABS Non-Graf 10/24 ESCITALOPRAM OXALATE [id number] Isaiah Sam MD PROTONIX 40 MG PACK -Graf 10/24 PANTOPRAZOLE SODIUM [id number] Isaiah Sam MD NITROSTAT 0.4 MG SUBL -Graf 10/24 NITROGLYCERIN [id number] Isaiah Sam MD BENTYL 20 MG ORAL TABLET -Graf 10/24 DICYCLOMINE HCL [id number] Isaiah Sam MD MIRAPEX 1.5 MG ORAL TABLET -Graf 10/24 PRAMIPEXOLE DIHYDROCHLORIDE [id number] Isaiah Sam MD PLAVIX 75 MG TABS -Graf 10/24 CLOPIDOGREL BISULFATE [id number] Isaiah Sam MD ZOCOR 20 MG TABS -Graf 10/24 SIMVASTATIN [id number] Isaiah Sam MD COREG 3.125 MG TABS -Graf 10/24 CARVEDILOL [id number] Isaiah Sam MD ULTRAM 50 MG ORAL TABLET 1 q 6 - 8 prn 10/24 TRAMADOL HCL [id number] Isaiah Sam MD FLEXERIL 10 MG TABS 1 qhs, and 1/2 -1 q 8 prn during the day, max of 3 a day 10/24 CYCLOBENZAPRINE HCL [id number] Isaiah Sam MD Medications Administered No information available. Allergies, Adverse Reactions, Alerts Observed no known allergies at Results No information available. Plan of Care Type Date Detail Pending order BMP Pending order EKG Pending order CBC Pending order X-Ray Lumbar Fle xion/Extension Pending order EMG Bilateral Lo wers Pending order LUCITA Series = 1.3 Injections Pending order LUCITA Series = 1.3 Injections Patient education laminectomy Procedures Code Procedure Name Date Entry Date 1123F ACP/POA documented 6 G8427 Medication Reconcili ation Completed CPT-G8427 G8730 Pain Assessment posi tive with follow up plan G8417 BMI above normal, f/u plan documented 201 07/18/25 1036F No tobacco use currently 201 07/18/25 4040F Pneumococcal vaccine received G8483 No flu shot received; allergy etc. 06/09 CPT-73100 EMG w/ NCS, Complete, 1 Extremity CPT-408 27 0646/04/11 CPT-26008 Nerve Conduction [place] dy (5-6 studies) CPT-07276 [id number] Medications Documented G8427 Medication Reconcili ation Completed CPT-G8427 G8730 Pain Assessment posi tive with follow up plan G8417 BMI above normal, f/u plan documented 201 07/15/28 1036F No tobacco use currently 201 07/15/28 4040F Pneumococcal vaccine received G8483 No flu shot received; allergy etc. 03/14 1123F ACP/POA documented 9 [facility]-[id number] Pneumonia Vaccine Previously Received 01/03/28 G8427 Medication Reconcili ation Completed CPT-G8427 Vital Signs Date Name Value Unit Description BMI (Body Mass Index) 29.29 kg/m2 Bod y Mass Index (Ratio) Height 60 [in_us] height E&M Weight Measured 150 [lb_av] weight E& M Weight Measured 150 [lb_av] weight E& M BP Diastolic 60 mm[Hg] blood pressu re, diastolic BP Systolic 120 mm[Hg] blood pressur e, systolic Heart Rate 75 /min pulse rate Immunizations No information available. Advance Directives No information available.
--- OUTSIDE RECORDS SUMMARY | 2024-07-31 08:42 | XMS_ITS | Encounter Summary ---
Author Organization [employer] [facility] Address [address] [place] [address] Care Team Providers Care Head Of Acquisitions Name Role Phone Unavailable Primary Care Provider Unavailabl e Encounter Details Date Type Department Care Team (Late st Contact Info) Description 07/25/2019 Transcribed Document [facility] [place] [facility] [place] [address] ProviderIrasema MD [facility] [place] [address] Social History Tobacco Use Types [...] Conversion Note - Irasema ProviderMD - 07/25/2019 2:00 AM CDT Spiritual Care Assessment Entered On: 07/26/2019 5:37 EDT Performed On: 07/25/2019 22:20 EDT by Melo Newberry Chaplain-Non Cert General Information Referred by : Other: Spiritual consult Ministry Provided to : Patient Amish Preference : Scientologist Melo Newberry Chaplain-Non Cert - 07/26/2019 5:35 EDT Spiritual Assessment Spiritual Assessment Comment/Summary Points : Spiritual care and brief supportive visit provided to patient. Spirital Assessment Comment/Summary Report : SPIRITUAL ASSESSMENT COMMENT/SUMMARY No qualifying data available. Melo Newberry Chaplain-Non Cert - 07/26/2019 5:35 EDT Interventions Emotional Support : Empathic/Engaged listening, Hope strengths identified, Hope struggles identified Spiritual and Amish : Spiritual/Amish support provided Melo Newberry Chaplain-Non Cert - 07/26/2019 5:35 EDT documented in this encounter Plan of Treatment Not on file documented as of this encounter Visit Diagnoses Not on filedocumented in this encounter
--- OUTSIDE RECORDS SUMMARY | 2024-07-31 08:42 | XMS_ITS | Encounter Summary ---
Author Organization [employer] Address [address] [place] [address] Care Team Providers Care Truck Driving Instructor Name Role Phone Unavailable Primary Care Provider Unavailabl e Encounter Details Date Type Department Care Team (Late st Contact Info) Description 07/24/2019 Transcribed Document [facility] [place] [facility] [place] [address] ProviderIrasema MD [facility] [place] [address] Social History Tobacco Use Types [...] Cerner Conversion Note - Historical ProviderMD - 07/24/2019 2:59 PM CDT UM Authorization Entered On: 07/24/2019 15:00 EDT Performed On: 07/24/2019 14:59 EDT by SANNA MARRERO Esol Teacher Assistant Primary Insurance Authorization Authorization and Policy Numbers : Insurance 1 Health Plan: MEDICARE Policy Number: [id number] Authorization Number: Insurance 2 Health Plan: ANTH HMOPPO Policy Number: [id number] Authorization Number: Insurance Primary Name : Medicare Authorized Service Begin Date-Primary : 07/25/2019 EDT Authorization Comments-Primary : Pt is scheduled for INPT Lumbar Fusiion Posterior 3 Level Intrathecal Pain Pump replace/revise on 07-25-2019 Medicare: NPR Historical Authorization Comments-Primary : No Authorization Comments Found SANNA MARRERO, Esol Teacher Assistant - 07/24/2019 14:59 EDT documented in this encounter Plan of Treatment Not on file documented as of this encounter Visit Diagnoses Not on filedocumented in this encounter
--- OUTSIDE RECORDS SUMMARY | 2024-07-31 08:42 | XMS_ITS | Encounter Summary ---
Author Organization [employer] Address [address] [place] [address] Care Team Providers Care Turnaround Planner Name Role Phone Unavailable Primary Care Provider Unavailabl e Encounter Details Date Type Department Care Team (Late st Contact Info) Description 07/25/2019 Transcribed Document [facility] [place] [facility] [place] [address] ProviderIrasema MD [facility] [place] [address] Social History Tobacco Use Types [...] Conversion Note - Historical ProviderMD - 07/25/2019 6:53 AM CDT Admission History, Adult Entered On: 07/25/2019 16:33 EDT Performed On: 07/25/2019 6:53 EDT by Rosalva Kay RN Advance Directive Patient has Advance Directive *Q : Yes, Advance Directive with the patient Advance Directive Type : Other: general power of business development analyst Copy Advance Directive Verified/on Chart : Yes Rosalva Kay RN - 07/25/2019 16:29 EDT Anesthesia/Transfusion History Family History of Anesthesia Reaction : Prior transfusion without reaction Blood Transfusion Acceptable to Patient : Yes Transfusion History : Prior anesthesia without reaction Family History of Anesthesia Reaction : None Rosalva Kay RN - 07/25/2019 16:29 EDT Anticipated Discharge Needs Discharge To, Anticipated : Home Anticipated Discharge Needs at This Time : None Rosalva Kay RN - 07/25/2019 16:29 EDT Education Topics, Admission Orientation DCP GENERIC CODE Advance Directives : Verbalizes understanding Allergy Band Applied : Verbalizes understanding Assessment/Vital Signs : Verbalizes understanding Bed Control : Verbalizes understanding Call Light : Verbalizes understanding Confidentiality : Verbalizes understanding Diet/Room Service : Verbalizes understanding Fall Prevention : Verbalizes understanding Hand Hygiene : Verbalizes understanding Healthcare Provider Visit : Verbalizes understanding ID Band Applied : Verbalizes understanding Isolation Precautions : Verbalizes understanding Orientation to Room/Bathroom : Verbalizes understanding Patient Bill of Rights : Verbalizes understanding Patient Rights/Responsibilities : Verbalizes understanding Patient Safety : Verbalizes understanding Personal Privacy Code : Verbalizes understanding Rapid Response Initiated by Patient/Family : Verbalizes understanding Rounding : Verbalizes understanding Siderails use/risks : Verbalizes understanding Skin Precautions : Verbalizes understanding Smoking Policy : Verbalizes understanding Telemetry Monitoring : Verbalizes understanding Television/Phone : Verbalizes understanding Visiting Policy : Verbalizes understanding Rosalva Kay RN - 07/25/2019 16:29 EDT Functional Assessment Living Situation : Home Current Daily Living Assistance : None Sensory Deficits : None Mobility Assistance Prior to Admission : Independent SANTOS Hx Falls Immediate/Within 3 Months : No Current Home Treatments : CPAP Rosalva Kay RN - 07/25/2019 16:29 EDT General Info Preferred Name : Guillermina Arrived From : Home Mode of Arrival on Unit : Ambulatory Legal Guardian : Unaccompanied Support Person/Patient Drawing Kiln Operator : Yes Support Person/Pt Rep Name : Patricio Angel son Support Person/Pt Rep Contact Information : [phone] Want Family/Rep/Phys Notified of Admit : No Emergency Contact #1 : Patricio angel Emergency Contact #1 Emergency Contact #1 Relationship : son Emergency Contact #2 : na Emergency Contact #2 Phone Number : nan Emergency Contact #2 Relationship : na` Information Obtained From : Patient Primary Language : Wallisian Preferred Communication Mode : Verbal Communication Barrier : None Objects to Sharing Info w Family : No Rosalva Kay RN - 07/25/2019 16:29 EDT Fall Risk Scales ABCs Fall Injury Risk Identification : Age, Bones, Coagulation, Surgery ABC Fall Injury Risk : Moderate to high injury risk Injury Moderate to High Risk Interventions : High Risk for Fall Injury sign in place per policy, Patient room close to nurses station, Supervise toileting as indicated, Transport methods appropriate to patient SANTOS Hx Falls Immediate/Within 3 Months : No Santos Secondary Diagnosis : Yes SANTOS Use of Ambulatory Aid : Bed rest/Nurse assist SANTOS IV Therapy or IV Access : Yes Santos Gait/Transferring : Normal, bedrest, immobile Santos Mental Status : Oriented to own ability Santos Fall Risk Score : 35 SANTOS Fall Scale Risk Level : 25-45 Medium Risk [place] Fall Interventions : Adequate lighting, Assistive devices within reach, Bed in low position, Call device within reach, Fall prevention handout/education per facility policy, Frequent orientation to call device, Frequent orientation to surroundings, Hourly comfort/safety rounds, Non-slip footwear, Personal items within reach, Reinforced to call for assistance before getting out of bed, Room free of clutter/spills, Upper side-rails up, Wheels locked, Wires/Cords secured Barriers to Learning : None evident Learning Style Preferences Family : Verbal explanation Learning Style Preferences Patient : Verbal explanation Fall Risk Scale Calc Temp : 1 Rosalva Kay RN - 07/25/2019 16:29 EDT Health Histories Smoking Status : 10 or more cigarettes (1/2 pack or more)/day in last 30 days Smokeless Tobacco Status : Never Desires Tobacco Cessation Medication : No Reason for No Tobacco Cessation Medication : Refuses FDA approved medications Rosalva Kay RN - 07/25/2019 16:29 EDT Social History (As Of: 07/25/2019 16:34:00 EDT) Tobacco: 10 or more cigarettes (1/2 [...] Updated: 07/19/2019 13:03:17 EDT by MARY ANN CALVERT RN) Height and Weight, Clinical Dosing Height Source : Measured Height Entry Format : [place] Height, Feet : 5 ft(Converted to: 152 cm, 60 Inch) Height, Inches : 0 Inch(Converted to: 0 ft 0 Inch, 0.00 cm) Clinical Height : 152.4 cm Weight Source : Standing scale Weight Entry Format : [place] Clinical Dosing Weight : 69.74 kg Weight, Pounds : 153 lb Weight, Ounces : 7 oz Body Surface Area (BSA) : 1.67 m2 Body Mass Index : 30 kg/m2 (HI) [place] Body Weight : 45 kg Rosalva Kay RN - 07/25/2019 16:29 EDT Infectious Disease History Has the patient ever been tested for COVID-19? : No, Patient stated COVID19 Screening : No Experiencing Infectious Disease Symptoms : No symptoms Physical contact outside [place] in the last 30 days : No Infectious Disease Symptoms Score : 0 Infectious Disease History : None Tuberculosis Symptoms : None Rosalva Kay RN - 07/25/2019 16:29 EDT Tetanus Immunization Status Previous Tetanus Immunizations : No qualifying data available. Tetanus Immunization : Unknown Rosalva Kay RN - 07/25/2019 16:29 EDT Influenza Vaccine Asmt, Adult Previous Vaccines from Immunization Schedule : No qualifying data available. Influenza Immunization, Current Season : Outside of influenza season Rosalva Kay RN - 07/25/2019 16:29 EDT Pneumococcal Vaccine Previous Vaccines from Immunization Schedule : No qualifying data available. Pneumonia Immunization Received : Yes Rosalva Kay RN - 07/25/2019 16:29 EDT Order Details Transport Mode Order Detail : Stretcher/Gurney Isolation Precautions Order Detail : Standard Precautions Order Detail : N/A IV Order Detail : 1 Oxygen Order Detail : 1 Nurse Collect Order Detail : 0 Lift/Transfer : Moderate assist Central Line Order Detail : No Room Service : Appropriate Arterial Line : No Rosalva Kay RN - 07/25/2019 16:29 EDT Nutrition History Feeding Ability : Independent Adaptive Feeding Equipment : None Adaptive Feeding Equipment : Regular Eating Poorly Due to Decreased Appetite : No Unplanned Weight Loss in Past 3-6 Months : No Malnutrition Screening Tool Total(mal) : 0 Malnutrition Screening Tool Risk Level : Patient not at risk Rosalva Kay RN - 07/25/2019 16:29 EDT [place] Suicide Severity Rating Scale (C-SSRS) CSSRS Past Month Wish to be : No CSSRS Past Month Suicidal Thoughts : No CSSRS Lifetime Suicide Behavior : No Suicide Severity Rating Score : 0 Suicide Severity Rating : No Additional Care Required at this time Rosalva Kay RN - 07/25/2019 16:29 EDT Psychosocial History Currently in Unsafe Situation : No Rosalva Kay RN - 07/25/2019 16:29 EDT Sleep Apnea Risk Assmt Hx of [...] Sleep Apnea Risk Level Score : 3 Rosalva Kay RN - 07/25/2019 16:29 EDT Spiritual/Cultural Needs Any Spiritual/Cultural Needs or Requests : Yes Spiritual/Cultural Needs Comment : surgery on TueJuly 24 in at 0930 am Worship Preference : Jewish Spiritual/Cult Concerns/Desires/Needs : Prayer Spiritual/Cultural Needs Comment : surgery on TueJuly 24 in at 0930 am Rosalva Kay RN - 07/25/2019 16:29 EDT Valuables and Belongings Valuables and Belongings : Clothing, No comfort items, No jewelry, No personal devices, No personal items, No assistive devices, No respiratory devices, No medications Clothing : Common streetwear Clothing Disposition : Bedside, With patient Rosalva Kay RN - 07/25/2019 16:29 EDT documented in this encounter Plan of Treatment Not on file documented as of this encounter Visit Diagnoses Not on filedocumented in this encounter
--- OUTSIDE RECORDS SUMMARY | 2024-07-31 08:42 | XMS_ITS | Encounter Summary ---
Author Organization [employer] Address [address] [place] [id number] Care Team Providers Care Video Rental Clerk Name Role Phone Unavailable Primary Care Provider Unavailabl e Encounter Details Date Type Department Care Team (Late st Contact Info) Description 07/25/2019 Transcribed Document [facility] Radiology 1 [place] [address] Ramon Voss MD [address] [place] [id number] Social History Tobacco Use Types Packs/Day Years Used Date Smoking Tobacco: Never Assessed Comments Unknown Sex and Gender Information Value Date Recorded Sex Assigned at Female 08/11/2021 8:42 PM CDT Legal Sex Female 8:42 PM CDT Gender Identity Female 08/11/2021 8:42 PM CDT Sexual Orientation Not on file documented as of this encounter Miscellaneous Notes * Cerner Conversion Note - Ramon Voss MD - 07/25/2019 11:19 AM EDT Patient: GUILLERMINA HINOJOSA Age: 78 years Sex: Female : 1940 Associated Diagnoses: None Author: ONOFRE PERRY APRN-EDNA 07/25/2019 cc: medical management s/p L3-S1 PLIF per Dr. Barboza HPI: Patient is a 78 yo female admitted to [facility] per Dr. Barboza for an L3-S1 PLIF. Preoperatively patient was found to have advanced spondylolisthesis of the lumbar spine and elected surgical intervention after failing conservative treatment. Patient is followed perioperatively while hospitalized for medical management. Patient seen initially in PACU. Alert. [place]. Denies history of CVA, seizures, DVT. No diagnosis of sleep apnea. No recent respiratory illness or antibiotics. Smokes 1/2ppd. Declines NRT. Reports 2 mixed drinks daily. No chronic bowel or bladder issues. HTN is controlled on home medications. Past Med Hx: Active Problems (16) AICD (automatic cardioverter/defibrillator) present [facility] Angina Arthritis At risk for sleep apnea Back pain radiates down both legs R> L Congestive heart failure Coronary artery disease s/p TN s/p stents GERD - Gastro-esophageal reflux disease H/O Hemorrhoids Hiatal hernia [place] (hard of hearing) Hyperlipidemia Hypertension Restless legs syndrome Shortness of breath Skin cancer Active Procedures (2) heart cath with stents intrathecal pain pump insertion Family Hx: Non contributory Social & Psychosocial Habits Alcohol 07/19/2019 Alcohol Use History, Social Habits Yes Days Per Week of Alcohol Use 7 Number of Drinks per Day 2 Total Drinks Per Week 14 Home/Environment 07/19/2019 Lives with: Children Living situation: Home/Independent Home equipment: Walker/Cane Substance Abuse 07/19/2019 Recreational Drug Use History No Recreational Drug Use Last 12 Months No Tobacco 07/19/2019 Smoking Status 10 or more cigarettes (1/ Smokeless Tobacco Status Never Smokeless Tobacco Use History None Years of Tobacco Use 30 Packs/Tins Daily 0.75 Allergies (1) Active Reaction No Known Allergies None Documented Home Medications (16) Active atorvastatin 40 mg, Oral, Daily biotin 5,000 mcg ( 2 tab), Oral, Daily escitalopram 20 mg, Oral, Daily Hair, Skin & Nails 1 Tab, Oral, Daily Lasix 40 mg, PRN, Oral, TID losartan 25 mg, Oral, Daily Metoprolol Succinate ER 25 mg, Oral, Daily nitroglycerin 0.4 mg, PRN, SubLINgual, Q5Min pantoprazole 40 mg, Oral, Daily Plavix 75 mg, Oral, Daily potassium gluconate 99 mg ( 2 tabs ), Oral, Daily pramipexole 2 mg, Oral, At Bedtime rOPINIRole 2 mg, Oral, At Bedtime spironolactone 25 mg, Oral, Daily Ventolin HFA 2 Puff, PRN, Inhalation, Q4H Vitamin B Complex 100 1 mL, Oral, Daily Constitutional: [No fevers, chills Eye: [No eye discharge, eye pain, redness] HEENT: [No nasal congestion, sore throat Respiratory: [No shortness of breath, cough, pain on breathing, sputum production] Cardiovascular: [No Chest pain, palpitations, syncope, shortness of breath while laying flat] Gastrointestinal: [No nausea, vomiting, diarrhea, constipation] Genitourinary: [No hematuria, dysuria, incontinence Musculoskeletal: LBP with decreased ROM Integumentary: [No rash, pruritus Neurologic: [No weakness, numbness Psychiatric: +anxiety, +depression Vitals Signs (last 24 hrs) Last Charted Minimum Maximum Temp 98.5 (JUL 24:) 98.5 (JUL 24:) 98.5 (JUL 24:) Mon HR 75 (JUL 24:) 75 (JUL 24:) 75 (JUL 24:) Resp Rate 18 (JUL 24:) 18 (JUL 24:) 18 (JUL 24:) SBP 135 (JUL 24:) 135 (JUL 24:) 135 (JUL 24:) DBP 62 (JUL 24:) 62 (JUL 24:) 62 (JUL 24:) SpO2 96 (JUL 24:) 96 (JUL 24:) 96 (JUL 24:) General: [Alert and oriented, no acute distress]. Neurologic: [Awake, alert, and oriented X3, [place] Eye: [PERRL, EOMI, normal conjunctiva]. HENT: [Normocephalic, [place], moist oral mucosa, no scleral icterus Neck: [Supple, non-tender, no lymphadenopathy]. Lungs: [Clear to auscultation, non-labored respiration]. Heart: [Normal rate, regular rhythm, no edema]. Abdomen: [Soft, non-tender, non-distended, sluggish bowel sound post op, torres intact- clear yellow urine Musculoskeletal: LBP with decreased ROM Skin: [Skin is warm, dry and pink, bulb drain intact- bloody drainage Psychiatric: [Cooperative, appropriate mood and affect]. Data: Preop labs from 07/19/2019 reviewed BMP unremarkable Hgb 10.8 u/a negative COVID negative Impression: advanced spondylolisthesis Lspine -s/p L3-S1 PLIF per Dr. Jabari CARLISLE tobacco abuse- 1/2ppd- declines NRT daily ETOH use- 2 mixed drinks at risk for sleep apnea Hx CHF Hx HTN Hx CAD with stents Hx hiatal hernia Hx Restless legs Plan: torres catheter in place overnight CIWA with PRN ativan for s/s withdrawal patient declines NRT Monitor HTN; add PRN's, hold parameters bowel regimen incentive spirometer PT/OT DVT prophylaxis noted Pain management deferred to surgeon will monitor hb/hct daily for signs of ongoing acute blood loss will monitor bun/cr daily for signs of dehydration, prerenal azotemia will monitor for signs/symptoms of post-op wound infection or hospital acquired infectious process resume outpatient medication regimen for comorbidities assessment and treatment plan made in conjunction with Nitin Voss MD Scribed by Ashley Petit documented in this encounter Plan of Treatment Not on file documented as of this encounter Visit Diagnoses Not on filedocumented in this encounter
--- OUTSIDE RECORDS SUMMARY | 2024-07-31 08:42 | XMS_ITS | Encounter Summary ---
Author Organization [employer] Address [address] [place] [address] Care Team Providers Care Sports Psychologist Name Role Phone Unavailable Primary Care Provider Unavailabl e Encounter Details Date Type Department Care Team (Late st Contact Info) Description 07/25/2019 Transcribed Document [facility] [place] [address] ProviderIrasema MD [facility] [place] [address] Social History Tobacco Use Types [...] Conversion Note - Historical ProviderMD - 07/25/2019 2:14 PM CDT Evaluation, Occupational Therapy Entered On: 07/26/2019 14:03 EDT Performed On: 07/26/2019 10:13 EDT by Rosalva Ugarte STUDENT-OCCUPATIONAL THERAPIST General Information, OT Visit Type, OT : Initial evaluation Rosalva Ugarte STUDENT-OCCUPATIONAL THERAPIST - 07/26/2019 13:55 EDT Patient Orders : Order Date Order Ordering 07/25/2019 14:14 Occupational Therapy Evaluation and Treatme Ordered By: GRETA SOTOMAYOR MD-SNU Active Diagnoses : No Qualifying Diagnoses DAT BARRIENTOS OTR/Seven - 07/26/2019 14:27 EDT Therapy Diagnosis, OT : Decreased independence in ADLs due to weakness Onset of Problem, OT : 07/25/2019 EDT Rosalva Ugarte STUDENT-OCCUPATIONAL THERAPIST - 07/26/2019 13:55 EDT Admission Date : 07/25/2019 06:54 DAT BARRIENTOS OTR/Seven - 07/26/2019 14:27 EDT Co-treated by, OT : Physical Therapist Rosalva Ugarte STUDENT-OCCUPATIONAL THERAPIST - 07/26/2019 13:55 EDT Personal Devices : Personal Devices No Devices Recorded Assistive Devices : Assistive Devices No Devices Recorded DAT BARRIENTOS OTR/Seven - 07/26/2019 14:[address] : Fall prevention measures, Spinal Precautions General Information Comment, OT : L3-iliac fusion Rosalva Ugarte STUDENT-OCCUPATIONAL THERAPIST - 07/26/2019 13:55 EDT General Status Patient Received Status : Supine in bed Treatment Start Time : 07/26/2019 9:49 EDT Patient Left Status : Up in chair, RN/PCT informed, All needs met and within reach Treatment End Time : 07/26/2019 10:13 EDT Treatment Time : 24 Minute(s) Rosalva Ugarte STUDENT-OCCUPATIONAL THERAPIST - 07/26/2019 13:55 EDT History and Environment, OT Living Situation, Therapy : Home Patient Lives With : Adult Child/Children Persons Providing Information : Patient Home Equipment, Therapy : Shower Equipment, Walker Shower Equipment : Shower bench, without back Walker : Walker, front wheel Home Setup : One story Stairs : No Rosalva Ugarte STUDENT-OCCUPATIONAL THERAPIST - 07/26/2019 13:55 EDT Prior LOF Bathing, OT : Independent Prior LOF Bed Mobility : Independent Prior LOF Upper Body Dressing, OT : Independent Prior LOF Lower Body Dressing, OT : Independent Prior LOF Toileting : Independent Prior LOF Transfer : Independent Prior LOF Grooming, OT : Independent Prior LOF for IADLs, OT : Independent Rosalva Ugarte STUDENT-OCCUPATIONAL THERAPIST - 07/26/2019 13:55 EDT Upper Extremity Right UE Active ROM : WFL Right UE Strength : WFL Left UE Active ROM : WFL Left UE Strength : WFL Upper Extremity Strength Impaired : No Right UE Strength : WFL Left UE Strength : WFL Rosalva Ugarte STUDENT-OCCUPATIONAL THERAPIST - 07/26/2019 13:55 EDT Self Care/Home Management, OT Self Feeding Assist Level, OT : Supervision or set-up Grooming Assist Level, OT : Supervision or set-up Bathing Assist Level, OT : Assist, minimal Upper Body Dressing Assist Level, OT : Assist, minimal Lower Body Dressing Assist Level, OT : Assist, minimal Toileting Assist Level : Supervision or set-up Toilet Transfer Assist Level : Assist, minimal Rosalva Ugarte STUDENT-OCCUPATIONAL THERAPIST - 07/26/2019 13:55 EDT Functional Mobility Mobility Grid Supine to Sit : Rehab Minimal assistance Sit to Stand : Rehab Minimal assistance Bed to Chair : Rehab Minimal assistance Chair to Bed : Rehab Minimal assistance Stand to Sit : Rehab Minimal assistance Rosalva Ugarte STUDENT-OCCUPATIONAL THERAPIST - 07/26/2019 13:55 EDT Cognition Assessment, OT Orientation : Oriented x 4 Rosalva Ugarte STUDENT-OCCUPATIONAL THERAPIST - 07/26/2019 13:55 EDT Indication Assessment, OT Occupational Therapy Indicated : Yes Problem List, OT : Impaired, bed mobility, Impaired, activities daily living, Impaired, endurance tolerance, Impaired functional mobility, Impaired, standing balance Potential Barriers, OT : None evident Rehabilitation Potential, OT : Good Rosalva Ugarte STUDENT-OCCUPATIONAL THERAPIST - 07/26/2019 13:55 EDT Plan of Care, OT OT Tx Plan/Goals Established w Patient : Yes OT Frequency Rehab : Five days per week OT Duration Rehab : Fourteen days OT Treatments Planned : Activities of daily living, Balance training, Functional mobility training, Therapeutic activities, Therapeutic exercises Rosalva Ugarte STUDENT-OCCUPATIONAL THERAPIST - 07/26/2019 13:55 EDT Hospice Spiritual Care Coordinator Goals, OT Grooming LTG Grid Goal #1 Activity : Grooming Assist : Independent, modified Date to Meet : 08/09/2019 EDT Goal Status : Initial goal Rosalva Ugarte STUDENT-OCCUPATIONAL THERAPIST - 07/26/2019 13:55 EDT Dressing, Upper Body LTG Grid Goal #1 Assist : Independent, modified Date to Meet : 08/09/2019 EDT Goal Status : Initial goal Rosalva gUarte STUDENT-OCCUPATIONAL THERAPIST - 07/26/2019 13:55 EDT Dressing, Lower Body LTG Grid Goal #1 Activity : Dressing, Lower Body Assist : Independent, modified Date to Meet : 08/09/2019 EDT Goal Status : Initial goal Rosalva Ugarte STUDENT-OCCUPATIONAL THERAPIST - 07/26/2019 13:55 EDT Toilet Transfer LTG Grid Goal #1 Activity : Toilet Transfer, Ambulatory Assist : Independent, modified Date to Meet : 08/09/2019 EDT Goal Status : Initial goal Rosalva Ugarte STUDENT-OCCUPATIONAL THERAPIST - 07/26/2019 13:55 EDT Bed Mobility/ Bed Transfer LTG Grid Goal #1 Activity : Bed Mobility/Bed Transfer Assist : Independent, modified Date to Meet : 08/09/2019 EDT Goal Status : Initial goal Rosalva Ugarte STUDENT-OCCUPATIONAL THERAPIST - 07/26/2019 13:55 EDT Treatment Note Subjective Comment : Pt agreeable to participate in eval. Patient's Response to Treatment : Pt tolerated eval well. Rosalva Ugarte STUDENT-OCCUPATIONAL THERAPIST - 07/26/2019 13:55 EDT Additional Objective Information : Pt asleep, supine in bed upon arrival. Min A req for supine to sit EOB. Max A to don back brace. Min A req for sit to stand. Pt ambulated in room and through hallway using Rwx with min A. Pt returned to room and left sitting up in chair with all needs met and CL in reach. DAT BARRIENTOS OTR/Seven - 07/26/2019 14:27 EDT Assessment : Pt will benefit from skilled OT services during hospital admission. Plan for Treatment : See goals Rosalva Ugarte STUDENT-OCCUPATIONAL THERAPIST - 07/26/2019 13:55 EDT Pain Assessment Pain Scaled Used : 0-10 Pain scale Pain Score Pre-Intervention : 5 Rosalva Ugarte STUDENT-OCCUPATIONAL THERAPIST - 07/26/2019 13:55 EDT Image 1 - Images currently included in the form version of this document have not been included in the text rendition version of the form. [facility] OT Charges OT Eval Low Complexity : 1 Rosalva Ugarte STUDENT-OCCUPATIONAL THERAPIST - 07/26/2019 13:55 EDT documented in this encounter Plan of Treatment Not on file documented as of this encounter Visit Diagnoses Not on filedocumented in this encounter
--- OUTSIDE RECORDS SUMMARY | 2024-07-31 08:42 | XMS_ITS | Encounter Summary ---
Author Organization [employer] Address [address] [place] [address] Care Team Providers Care Tapper Shank Name Role Phone Unavailable Primary Care Provider Unavailabl e Encounter Details Date Type Department Care Team (Late st Contact Info) Description 07/27/2019 Transcribed Document [facility] Radiology 1 [place] [address] Ramon Voss MD [address] [place] [id number] Social History Tobacco Use Types Packs/Day [...] Conversion Note - Ramon Voss MD - 07/27/2019 9:12 AM EDT Patient: GUILLERMINA HINOJOSA Age: 78 years Sex: Female : 1940 Associated Diagnoses: None Author: ONOFRE PERRY, HOMOGENIZER OPERATOR-EDNA cc: medical management s/p L3-S1 PLIF per Dr. Barboza S: Patient found up to bedside recliner eating breakfast. A/O. EYAK. LBP is adequately controlled. Ambulating with walker assist with therapy. Eager for discharge home today. Denies cough, dyspnea, fever, n/v or dysuria. Bowels have not yet moved but patient is passing gas and tolerating a po diet. HPI: Patient is a 78 yo female admitted to [facility] per Dr. Barboza for an L3-S1 PLIF. Preoperatively patient was found to have advanced spondylolisthesis of the lumbar spine and elected surgical intervention after failing conservative treatment. Patient is followed perioperatively while hospitalized for medical management. Patient seen initially in PACU. Alert. EYAK. Denies history of CVA, seizures, DVT. No [...] Congestive heart failure Coronary artery disease s/p [place] s/p stents GERD - Gastro-esophageal reflux disease H/O Hemorrhoids Hiatal hernia EYAK (hard of hearing) Hyperlipidemia Hypertension Restless legs [...] Last Charted Minimum Maximum Temp 98.7 (JUL 26:42) 98 (JUL 25 18:30) 99.2 (JUL 25:47) Apical HR 96 (JUL 25 08:24) 96 (JUL 25 08:24) 96 (JUL 25 08:24) Mon HR 86 (JUL 26:42) 85 (JUL 25:47) 93 (JUL 25 10:35) Resp Rate 16 (JUL 26:42) 16 (JUL 25 18:00) 16 (JUL 25 18:00) SBP 116 (JUL 26:42) 105 (JUL 25:47) H 141 (JUL 25 14:21) DBP L 41 (JUL 26:42) L 41 (JUL 26:42) L 59 (JUL 25 14:21) MAP 73 (JUL 26:42) 57 (JUL 25 21:47) 113 (JUL 25 14:21) SpO2 L 90 (JUL 25 18:30) L 90 (JUL 25 18:30) 97 (JUL 25 14:21) General: [Alert and oriented, no acute distress]. Neurologic: [Awake, alert, and oriented X3, EYAK Eye: [PERRL, EOMI, normal conjunctiva]. HENT: [Normocephalic, EYAK, moist oral mucosa, no scleral icterus Neck: [Supple, non-tender, no lymphadenopathy]. Lungs: [Clear to auscultation, non-labored respiration]. Heart: [Normal rate, regular rhythm, no edema]. Abdomen: [Soft, non-tender, non-distended, normal bowel sounds Musculoskeletal: LBP with decreased ROM Skin: [Skin is warm, dry and pink Psychiatric: [Cooperative, appropriate mood and affect]. Data: Blood Gases (Current Encounter/Past 24 Hours) No Blood Gas Results Found (Past 24 Hours) Electrolytes(BMP) Results (Current Encounter/Past 24 Hours) Sodium Level 134 mmol/L LOW 07/27/2019 04:20 Potassium Level 4.2 mmol/L 07/27/2019 04:20 Chloride Level 101 mmol/L LOW 07/27/2019 04:20 Carbon Dioxide Level 28 mmol/L 07/27/2019 04:20 Anion Gap 9 07/27/2019 04:20 Blood Urea Nitrogen 10 mg/dL 07/27/2019 04:20 Glucose Level 114 mg/dL HI 07/27/2019 04:20 Calcium Level 8.1 mg/dL LOW 07/27/2019 04:20 Creatinine Level 0.70 mg/dL 07/27/2019 04:20 Cardiac Markers (Current Encounter/Past 24 Hours) No Cardiac Marker Results Found (Past 24 Hours) CBC Results (Current Encounter/Past 24 Hours) WBC 12.5 K/uL HI 07/27/2019 04:11 Hct 26.0 % LOW 07/27/2019 04:11 Hgb 8.0 g/dL LOW 07/27/2019 04:11 Platelet Count 199 K/uL 07/27/2019 04:11 CMP Results (Current Encounter/Past 24 Hours) Creatinine Level 0.70 mg/dL 07/27/2019 04:20 Bun/Creatinine 14.3 07/27/2019 04:20 eGFR >60 mL/min/1.73m2 07/27/2019 04:20 eGFR NonAfrican >60 mL/min/1.73m2 07/27/2019 04:20 Sodium Level 134 mmol/L LOW 07/27/2019 04:20 Potassium Level 4.2 mmol/L 07/27/2019 04:20 Chloride Level 101 mmol/L LOW 07/27/2019 04:20 Carbon Dioxide Level 28 mmol/L 07/27/2019 04:20 Anion Gap 9 07/27/2019 04:20 Blood Urea Nitrogen 10 mg/dL 07/27/2019 04:20 Glucose Level 114 mg/dL HI 07/27/2019 04:20 Calcium Level 8.1 mg/dL LOW 07/27/2019 04:20 Coagulation Results (Current Encounter/Past 24 Hours) No Coagulation Results Found (Past 24 Hours) Creatinine Clearance (Current Encounter/Past 24 Hours) Creatinine Level 0.70 mg/dL 07/27/2019 04:20 Bun/Creatinine 14.3 07/27/2019 04:20 Estimated Creatinine Clearance 48.34 mL/Min 07/27/2019 04:20 Preop labs from 07/19/2019 reviewed BMP unremarkable Hgb 10.8 u/a negative COVID negative Impression: advanced spondylolisthesis Lspine -s/p L3-S1 PLIF per Dr. Jabari CARLISLE tobacco abuse- 1/2ppd- declines NRT daily ETOH use- 2 mixed drinks at risk for sleep apnea Hx CHF Hx HTN Hx CAD with stents Hx hiatal hernia Hx Restless legs Plan: Ok to discharge home today from medical standpoint continue bowel regimen continue incentive spirometer PT/OT per home health Pain management deferred to surgeon resume outpatient medication regimen for comorbidities assessment and treatment plan made in conjunction with Nitin Voss MD documented in this encounter Plan of Treatment Not on file documented as of this encounter Visit Diagnoses Not on filedocumented in this encounter
--- OUTSIDE RECORDS SUMMARY | 2024-07-31 08:42 | XMS_ITS | Clinical Summary ---
Author Organization [employer] Address [address] [place] [address] Care Team Providers Care Manager Of Environmental Services Name Role Phone Unavailable Primary Care Provider [...]
--- OUTSIDE RECORDS SUMMARY | 2024-07-31 08:42 | XMS_ITS | Encounter Summary ---
Author Organization [employer] Address [address] [place] [address] Care Team Providers Care Anthropologist Name Role Phone Unavailable Primary Care Provider Unavailabl e Encounter Details Date Type Department Care Team (Late st Contact Info) Description 07/25/2019 Transcribed Document [facility] [place] [facility] [place] [address] ProviderIrasema MD [facility] [place] [address] Social History Tobacco Use Types [...] ProviderMD - 07/25/2019 2:14 PM CDT Evaluation, Physical Therapy Entered On: 07/26/2019 11:17 EDT Performed On: 07/26/2019 11:12 EDT by AMAYA GARIBAY, HODA General Information, PT Visit Type, PT : Initial evaluation Patient Orders : Order Date Order Ordering 07/25/2019 14:14 Physical Therapy Eval and Treat Ordered By: GRETA SOTOMAYOR MD-SNU 07/26/2019 11:11 PT Additional Treatment Ordered By: AMAYA GARIBAY, PT Active Diagnoses : No Qualifying Diagnoses Therapy Diagnosis, PT : Acute pain and difficulty walking Onset of Problem, PT : 07/26/2019 EDT Admission Date : 07/25/2019 06:54 Co-treated by, PT : Occupational Therapist Personal Devices : Personal Devices No Devices Recorded Assistive Devices : Assistive Devices No Devices Recorded Precautions in Place : Fall prevention measures, Spinal Precautions General Information Comment, PT : Admit Dx: 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, removal of intrathecal pump (07/24) Spine Precautions/ BRACE AMAYA GARIBAY, PT - 07/26/2019 11:12 EDT General Status Patient Received Status : Supine in bed Treatment Start Time : 07/26/2019 9:48 EDT Patient Left Status : Up in chair, All needs met and within reach Treatment End Time : 07/26/2019 10:12 EDT Treatment Time : 24 Minute(s) AMAYA GARIBAY, PT - 07/26/2019 11:12 EDT History and Environment Patient Lives With : Adult Child/Children Persons Providing Information : Patient Home Equipment Therapy, PT : Shower Equipment, Walker Shower Equipment Comment : built-in bench Walker : Walker, front wheel Home Setup : One story Stairs : No AMAYA GARIBAY, PT - 07/26/2019 11:12 EDT Prior Level of Function PT GRID Prior LOF Ambulation, Household : Independent Prior LOF Ambulation, Community : Independent Prior LOF Bed Mobility : Independent Prior LOF Toileting : Independent Prior LOF Transfer : Independent AMAYA GARIBAY, PT - 07/26/2019 11:12 EDT Prior LOF Assist with ADL Comment : per pt reports iADLs AMAYA GARIBAY, PT - 07/26/2019 11:12 EDT Lower Extremity RLE Active ROM : WFL Right LE Strength : WFL LLE Active ROM : WFL Left LE Strength : WFL AMAYA GARIBAY, PT - 07/26/2019 11:12 EDT Functional Mobility Mobility Grid Supine to Sit : Rehab Minimal assistance (Comment: HOB elevated [AMAYA GARIBAY, PT - 07/26/2019 11:12 EDT] ) Sit to Stand : Rehab Minimal assistance Bed to Chair : Rehab Minimal assistance Stand to Sit : Rehab Minimal assistance AMAYA GARIBAY, PT - 07/26/2019 11:12 EDT Sit to Stand Device : Belt, gait, Walker, front wheel Bed to Chair Device : Belt, gait, Walker, front wheel Stand to Sit Device : Belt, gait, Walker, front wheel Functional MobilityComment : cues for body mechanics AMAYA GARIBAY, PT - 07/26/2019 11:12 EDT Gait Training/Assessment, PT Gait Assistance Level : Assist, minimal Walking Distance : 140ft with RWx Bhanu x2; LSO, GIAN drain x1; 4L NC Ambulatory Devices : Gait belt, Walker, front wheel AMAYA GARIBAY, PT - 07/26/2019 11:12 EDT Cognition Assessment, PT Orientation : Oriented x 4 Attention Assessment : Present AMAYA GARIBAY PT - 07/26/2019 11:12 EDT Edu Topics Physical Therapy Education Grid Gait Training : Verbalizes understanding, Returns demonstration, Needs reinforcement Transfer Training : Verbalizes understanding, Returns demonstration, Needs reinforcement AMAYA GARIBAY, PT - 07/26/2019 11:12 EDT Indication Assesessment, PT Physical Therapy Indicated : Yes PT Problem List : Impaired, endurance tolerance, Impaired, gait, Impaired, strength, Impaired, transfers AMAYA GARIBAY, PT - 07/26/2019 11:12 EDT Plan of Care, PT PT Tx Plan/Goals Established w Patient : Yes PT Frequency Rehab : Daily, twice (bid) PT Duration Rehab : Fourteen days PT Treatments Planned : Gait training, Therapeutic exercises, Transfer training AMAYA GARIBAY, PT - 07/26/2019 11:12 EDT Alf Goals Mobility/Bed Mobility LTG PT Grid Goal #1 Goal #2 Activity : Supine to sit Sit to stand Assist : Independent, modified Independent, modified Date to Meet : 08/09/2019 EDT 08/09/2019 EDT Goal Status : Intial Goal Intial Goal Comment : via logroll AMAYA GARIBAY, PT - 07/26/2019 11:12 EDT AMAYA GARIBAY, PT - 07/26/2019 11:12 EDT Ambulation LTG Grid Goal #1 Device : Walker, front wheel Distance : 300ft Assist : Independent, modified Date to Meet : 08/09/2019 EDT Goal Status : Intial Goal AMAYA GARIBAY, PT - 07/26/2019 11:12 EDT Treatment Note Subjective Comment : pt agreed to PTx eval; oh honey I'll get better, you'll see Patient's Response to Treatment : Stable Additional Objective Information : Discussed and reviewed spine precautions; will require reinforcement of BLT and issuing of spine packet Assessment : pt with back pain, limited endurance but good intiiation but requires follow-through for spine precaution adherence, body mechanics; pt able to ambulate ~140ft with RWx Bhanu x2 Plan for Treatment : cont PTx POC AMAYA GARIBAY, PT - 07/26/2019 11:12 EDT Pain Assessment Pain Scaled Used : 0-10 Pain scale Pain Score Pre-Intervention : 5 Location : Back Pain Intervention, Drug : Medicated AMAYA GARIBAY PT - 07/26/2019 11:12 EDT Image 1 - Images currently included in the form version of this document have not been included in the text rendition version of the form. Anticipated Discharge Needs, OT/PT Anticipated Discharge to : Home, with family care, Home, with home health Anticipated Home Equipment : Other: owns RWx Recommend Continued Therapy at Discharge : Yes AMAYA GARIBAY PT - 07/26/2019 11:[address] [facility] PT Charges PT Eval Moderate Complexity : 1 AMAYA GARIBAY PT - 07/26/2019 11:12 EDT documented in this encounter Plan of Treatment Not on file documented as of this encounter Visit Diagnoses Not on filedocumented in this encounter
--- OUTSIDE RECORDS SUMMARY | 2024-07-31 08:43 | XMS_ITS | Encounter Summary ---
Author Organization [employer] Address [address] [place] [address] Care Team Providers Care Bunch Breaker Name Role Phone Unavailable Primary Care Provider Unavailabl e Encounter Details Date Type Department Care Team (Late st Contact Info) Description 07/26/2019 Transcribed Document [facility] Neurology - [address] [facility] [address] [place] [address] Greta Barboza MD [address] [place] [address] Social History Tobacco Use Types Packs/Day Years Used Date Smoking Tobacco: Never Assessed Comments Unknown Sex and Gender Information Value Date Recorded Sex Assigned at Female 08/11/2021 8:42 PM CDT Legal Sex Female 8:42 PM CDT Gender Identity Female 08/11/2021 8:42 PM CDT Sexual Orientation Not on file documented as of this encounter Miscellaneous Notes * Cerner Conversion Note - Greta Barboza MD - 07/26/2019 10:25 AM EDT Patient: GUILLERMINA HINOJOSA Age: 78 Years Sex: Female : 1940 Assessment/Plan POD 1 L3-Iliac removal of ITP pump no headache overnight - ok to raise hob and mobilize - abigail to suction - pt/ot eval - sqh dvt ppx - don lso when up and about - bandage change, d/w nursing - pain control - may need rehab at [place] depending on mobility - medicine following VTE Prophylaxis - Medical Heparin 5,000 Units, SubCutaneous, Inj, Q8H, Routine, Start 07/26/19 7:37:00 EDT (NISHANT WATTS) Sequential Compression Device Start: 07/25/19 14:14:00 EDT, Bilateral, Continuous Order (СВЕТЛАНА, GRETA TORRES) Subjective c/o back pain leg pain better no headache Vital Signs T: 37.2 ??C TMIN: 36.8 ??C TMAX: 37.3 ??C HR: 96 RR: 19 BP: 120/48 SpO2: 93% Oxygen Settings (Last) Oxygen Therapy Mode: Nasal cannula (07/25/19 16:00:00) Oxygen Flow Rate: 3 Liter/Min (07/25/19 16:00:00) Intake & Output Totals Last 24 Hours (7a-7a) Input Total: 1864.21 mL Output Total: 1300 mL Balance: 564.21 mL Physical Exam nad A&O nonlabored breathing no edema incisions cdi bandage saturated 5/5 silt appropriate documented in this encounter Plan of Treatment Not on file documented as of this encounter Visit Diagnoses Not on filedocumented in this encounter
--- OUTSIDE RECORDS SUMMARY | 2024-07-31 08:43 | XMS_ITS | Clinical Summary ---
Author Organization [facility] Address [address] [place] [address] Care Team Providers Care Clerical Production Worker Name Role Phone Reji Price MD Primary Care Provider [phone] Allergies No known active allergies Medications atorvastatin (Lipitor) 40 MG tablet Take 40 mg by mouth 1 (one) time each day. 05/13/2021 Active clopidogrel (Plavix) 75 MG tablet Take 75 mg by mouth 1 (one) time each day. 07/08/2021 Active Farxiga 10 MG tablet Take 10 mg by mouth 1 (one) time each day. 07/15/2021 Active escitalopram (Lexapro) 20 MG tablet Take 20 mg by mouth 1 (one) time each day. 07/08/2021 Active furosemide (Lasix) 40 MG tablet Take 80 mg by mouth 2 (two) times a day. 06/24/2021 Active nitroglycerin (Nitrostat) 0.[address] 0.4 mg under the tongue every 5 (five) minutes if needed. 06/19/2021 Active pantoprazole (Protonix) 40 MG EC tablet Take 40 mg by mouth 2 (two) times a day. 06/12/2021 Active Entresto 24-26 MG tablet Take 1 tablet by mouth 2 (two) times a day. 06/19/2021 Active albuterol 108 (90 Base) MCG/ACT inhaler Inhale 2 puffs every 6 (six) hours if needed for wheezing. Active pramipexole (Mirapex) 1 MG tablet Take 2 mg by mouth every night. Active BIOTIN PO Take 1 tablet by mouth 1 (one) time each day. Active multivitamin-mi nerals-folic acid-coenzyme q10 (Preservision AREDS 2) capsule Take 1 capsule by mouth 1 (one) time each day. Active metoprolol succinate XL (Toprol-XL) 25 MG 24 hr tablet Take 3 tablets (75 mg total) by mouth 1 (one) time each day. Do not crush or chew. 90 tablet 11 07/21/2021 Active Potassium Citrate 99 MG capsule Take 1 capsule by mouth 2 (two) times a day. Active Active Problems Problem Noted Date Diagnosed Date Obesity (BMI 35.0-39.9 without comorbidity) 06/2021 Severe obesity (BMI 35.0-39.9) with comorbidity 07/19/2021 Chest pain, unspecified type 07/19/2021 Social History Tobacco Use Types Packs/Day Years Used Date Smoking Tobacco: Every Day Cigarettes 1 35 Smokeless Tobacco: Never Alcohol Use Standard Drinks/Week Comments Yes 1 (1 standard drink = 0.6 oz pur e alcohol) Comments Unknown Sex and Gender Information Value Date Recorded Sex Assigned at Not on file Legal Sex Female 8:00 PM EDT Gender Identity Not on file Sexual Orientation Not on file Last Filed Vital Signs Vital Sign Reading Time Taken Comments Blood Pressure 143/63 08/05/2022 8:59 AM EDT Pulse 88 08/05/2022 8:59 AM EDT Temperature 37.3 C (99.1 F) 07/20/2021 12:40 PM EDT Respiratory Rate 18 07/19/2021 8:50 PM EDT Oxygen Saturation 97% 07/20/2021 12:40 PM EDT Inhaled Oxygen Concentration - - Weight 73.5 kg (162 lb) 08/05/2022 8:59 AM EDT Height 149.9 cm (4' 11 ) 08/05/2022 8:59 AM EDT Body Mass Index 32.72 08/05/2022 8:59 AM EDT Plan of Treatment Health Maintenance Due Date Last Done Comments [facility]-Bone Density Scan 1940 [facility]-Depression Screening 1940 [facility]-Infant/Child/Adol SDOH Screenings 1940 [facility]-Obesity Intervention 12/29/1947 [facility]- SDOH Screenings 12/29/1959 [facility]-Adult SDOH Screenings 12/29/1959 [facility]-DTaP,Tdap,and Td Vaccines (1 - Tdap) 1960 [facility]-Zoster Vaccines (1 of 2) 12/29/1991 [facility]-RSV Vaccine: 60+ Years or (1 - 1-dose 75+ series) 2016 [facility]-Medicare Annual Wellness (AWV) 2017 2016, 11/21/2015, 11/07/2014, Additional history exists [id number] Vaccine ( - 2023- season) 2023 12/25/2020, 05/15/2020, 04/16/2020 [facility]-Influenza Vaccine (Season Ended) 2024 11/06/2019, 11/30/2016, 11/21/2015, Additional history exists [facility]-Pneumococcal Vaccine: 50+ Years Completed 05/30/2015, 12/08/2010 [facility]-Lung Cancer Screening Discontinued 2015, 06/19/2014, 11/06/2012 HPV Vaccines Aged Out No longer eligi ble based on patient's age to complete this topic [facility]-HIB Vaccines Aged Out No longer e ligible based on patient's age to complete this topic [facility]-Hepatitis A Vaccines Aged Out No longer eligible based on patient's age to complete this topic [facility]-IPV Vaccines Aged Out No longer e ligible based on patient's age to complete this topic [facility]-Rotavirus Vaccines Aged Out No lo nger eligible based on patient's age to complete this topic Insurance MEDICARE ANTHEM Advance Directives * Full Code (Latest Code Status on File) Date Activated Date Inactivated Comments 07/19/2021 11:25 AM 07/20/2021 5:13 PM Question Answer Comments Patient has decision-making capacity? Yes Care Teams Clerical Production Worker Relationship Specialty Start Date End Date Reji Price MD [address] [place] [address] #1 #1 SYLVIA Vaughan [id number] PCP - General 06/03/22
--- OUTSIDE RECORDS SUMMARY | 2024-07-31 08:43 | XMS_ITS | Encounter Summary ---
Author Organization [employer] Address [address] [place] [address] Care Team Providers Care Dogman/Woman Name Role Phone Unavailable Primary Care Provider Unavailabl e Encounter Details Date Type Department Care Team (Late st Contact Info) Description 07/25/2019 Transcribed Document [facility] [place] [address] [place] [address] ProviderIrasema MD [address] [place] [address] Social History Tobacco Use Types [...] Conversion Note - Irasema ProviderMD - 07/25/2019 4:21 PM CDT Meds to Bed Enrollment Entered On: 07/26/2019 9:14 EDT Performed On: 07/25/2019 16:21 EDT by Isaiah Aguilar SALES CLOSER LEAD Meds to Bed Enrollment Patient Enrollment Decision: : No/do not enroll in meds to bed program Reason for Declining Meds to Bed Program: : Other: NA Isaiah Aguilar SALES CLOSER LEAD - 07/26/2019 9:14 EDT documented in this encounter Plan of Treatment Not on file documented as of this encounter Visit Diagnoses Not on filedocumented in this encounter
--- OUTSIDE RECORDS SUMMARY | 2024-07-31 08:43 | XMS_ITS | Encounter Summary ---
Author Organization [facility] [employer] Address [address] [place] [address] Care Team Providers Care Sales Manager [place] Name Role Phone Unavailable Primary Care Provider Unavailabl e Encounter Details Date Type Department Care Team (Late st Contact Info) Description 07/26/2019 Transcribed Document [facility] [place] [facility] [place] [address] ProviderIrasema MD [facility] [place] [address] Social History Tobacco Use Types [...] Conversion Note - Irasema ProviderMD - 07/26/2019 11:11 AM CDT Treatment Intervention, PT Entered On: 07/26/2019 15:09 EDT Performed On: 07/26/2019 15:05 EDT by SHEILA LI PTA General Information, PT Visit Type, PT : Treatment Note Patient Orders : Order Date Order Ordering 07/25/2019 14:14 Physical Therapy Eval and Treat Ordered By: GRETA SOTOMAYOR MD-SNU 07/26/2019 11:11 PT Additional Treatment Ordered By: AMAYA GARIBAY PT Active Diagnoses : No Qualifying Diagnoses Therapy Diagnosis, PT : Acute pain and difficulty walking Admission Date : 07/25/2019 06:54 Assisted by, PT : wafer fabrication technician/aide Personal Devices : Personal Devices No Devices Recorded Assistive Devices : Assistive Devices No Devices Recorded Precautions in Place : Fall prevention measures, Spinal Precautions SHEILA LI PTA - 07/26/2019 15:05 EDT General Status Patient Received Status : Supine in bed Treatment Start Time : 07/26/2019 14:25 EDT Patient Left Status : Supine in bed, All needs met and within reach RN/PCT Informed Comment : MARLY Blackwell ok'd to treat. Treatment End Time : 07/26/2019 14:51 EDT Treatment Time : 26 Minute(s) SHEILA LI PTA - 07/26/2019 15:05 EDT Therapeutic Activities Transfer Activities Grid Activity #1 Activities : Transfer, commode Laterality : Right Reps : 1 Assistance : Supervision Cueing : Moderate verbal cues Special Technique/Precautions : patient required assist getting her nightgown up to keep it from going into commode SHEILA LI PTA - 07/26/2019 15:05 EDT Functional Mobility Mobility Grid Supine to Sit : Rehab Minimal assistance Sit to Stand : Supervision/set-up Stand to Sit : Supervision/set-up Sit to Supine : Rehab Moderate assistance SHEILA LI PTA - 07/26/2019 15:05 EDT Bed Comment : verbal cues for log roll to get in and out of bed but unable to demonstrate ; brace donned at EOB Sit to Stand Device : Walker, front wheel SHEILA LI PTA - 07/26/2019 15:05 EDT Gait Training/Assessment, PT Weight Bearing Status Maintained : Yes Weight Bearing Status : Full Gait Assistance Level : Supervision Walking Distance : 140ft Ambulatory Devices : Gait belt, Walker, front wheel Gait Deviations : Yes Gait Training Comment : patient amb with decreased trunk rotation and slowed gait; stopped twice due to coughing ; amb on 4L of O2 with no signs of distress SHEILA LI PTA - 07/26/2019 15:05 EDT Cognitive Treatment, PT Orientation : Oriented x 4 SHEILA LI PTA - 07/26/2019 15:05 EDT Edu Topics Physical Therapy Education Grid Gait Training : Returns demonstration, Needs further teaching Role of Physical Therapy : Returns demonstration Transfer Training : Returns demonstration, Needs further teaching SHEILA LI PTA - 07/26/2019 15:05 EDT Indication Assesessment, PT Physical Therapy Indicated : Yes SHEILA LI PTA - 07/26/2019 15:05 EDT Plan of Care, PT PT Tx Plan/Goals Established w Patient : Yes SHEILA LI PTA - 07/26/2019 15:05 EDT Pipelaying Fitter Goals Mobility/Bed Mobility LTG PT Grid Goal #1 Goal #2 Activity : Supine to sit Sit to stand Assist : Independent, modified Independent, modified Date to Meet : 08/09/2019 EDT 08/09/2019 EDT Goal Status : Progressing, continue Progressing, continue Comment : via logroll JAVIER LIN, PLATE GLASS GRINDER - 07/26/2019 15:05 EDT SHAMIKAJAVIER TAMNELLY Salazar - 07/26/2019 15:05 EDT Ambulation LTG Grid Goal #1 Device : Walker, front wheel Distance : 300ft Assist : Independent, modified Date to Meet : 08/09/2019 EDT Goal Status : Progressing, continue JAVIER LINELLY Salazar - 07/26/2019 15:05 EDT Treatment Note Subjective Comment : Patient agrees to treat Assessment : Patient has not yet met LTGs and would benefit from continued PT. Plan for Treatment : Continue per POC. GUILLERMO NELLY SOSA - 07/26/2019 15:05 EDT Pain Assessment Pain Scaled Used : 0-10 Pain scale Pain Score During-Intervention : 2 Location : Back GUILLERMO NELLY SOSA - 07/26/2019 15:05 EDT Image 1 - Images currently included in the form version of this document have not been included in the text rendition version of the form. Anticipated Discharge Needs, OT/PT Anticipated Discharge to : Home, with home health, Unit, rehabilitation GUILLERMO NELLY SOSA - 07/26/2019 15:[address] [facility] PT Charges PLATE GLASS GRINDER PT Therap. Exercise 15 min-PLATE GLASS GRINDER : 1 Gait Training Each 15 Min-PLATE GLASS GRINDER : 1 SHEILA LI PTA - 07/26/2019 15:05 EDT documented in this encounter Plan of Treatment Not on file documented as of this encounter Visit Diagnoses Not on filedocumented in this encounter
--- OUTSIDE RECORDS SUMMARY | 2024-07-31 08:43 | XMS_ITS | Encounter Summary ---
Author Organization [employer] Address [address] [place] [address] Care Team Providers Care Sand Polisher Name Role Phone Unavailable Primary Care Provider Unavailabl e Encounter Details Date Type Department Care Team (Late st Contact Info) Description 06/25/2019 Transcribed Document [facility] [place] [address] [place] [address] ProviderIrasema MD [address] [place] [address] Social History Tobacco Use Types [...] Conversion Note - Irasema ProviderMD - 06/25/2019 11:40 AM CDT Patient: GUILLERMINA PEARCE Age: 78 years Sex: Female : 1940 Associated Diagnoses: None Author: YANELIS STOCK PA Fluoroscopically guided lumbar puncture was perfomed at the L3-4 level and 12 mls of contrast injected. The patient tolerated the procedure well. Lumbar myelogram was then performed. CT and report to follow. documented in this encounter Plan of Treatment Not on file documented as of this encounter Visit Diagnoses Not on filedocumented in this encounter
--- OUTSIDE RECORDS SUMMARY | 2024-07-31 08:43 | XMS_ITS | Encounter Summary ---
Author Organization [employer] Address [address] [place] [address] Care Team Providers Care Molding Machine Operator Name Role Phone Unavailable Primary Care Provider Unavailabl e Encounter Details Date Type Department Care Team (Late st Contact Info) Description 07/26/2019 Transcribed Document [facility] [place] [address] [place] [address] ProviderIrasema MD [facility] [place] [address] Social History Tobacco Use Types [...] Conversion Note - Historical ProviderMD - 07/26/2019 5:00 PM CDT Chart Check - Review Order Profile Entered On: 07/26/2019 17:05 EDT Performed On: 07/26/2019 17:00 EDT by Rosalva Kay, RN Chart Check Powerplans Initiated/Discontinued as Appropriate : Yes All Active Orders Reviewed : Yes Rosalva Kay, RN - 07/26/2019 17:05 EDT documented in this encounter Plan of Treatment Not on file documented as of this encounter Visit Diagnoses Not on filedocumented in this encounter
--- OUTSIDE RECORDS SUMMARY | 2024-07-31 08:43 | XMS_ITS | Encounter Summary ---
Author Organization [employer] Address [address] [place] [address] Care Team Providers Care Retail Department Supervisor Name Role Phone Unavailable Primary Care Provider Unavailabl e Encounter Details Date Type Department Care Team (Late st Contact Info) Description 07/26/2019 Transcribed Document [facility] [place] [facility] [place] [address] ProviderIrasema MD [facility] [place] [address] Social History Tobacco Use Types [...] Conversion Note - Irasema ProviderMD - 07/26/2019 4:37 PM CDT Initial Discharge Planning Entered On: 07/26/2019 16:44 EDT Performed On: 07/26/2019 16:37 EDT by YRIS RADFORD, Electrician Helper Initial Assessment I Previously Documented Living Environment : No qualifying data available. Living Situation : Home Patient Lives With : Adult Child/Children Is the Patient a Caregiver at Home? : No Employment/Vocation : Retired Emergency Contact #1 : Patricio angel Emergency Contact #1 Emergency Contact #1 Relationship : son Emergency Contact #2 : na Emergency Contact #2 Phone Number : laverne Emergency Contact #2 Relationship : na` Enter Doctors Name : Heath Rogers Does Patient have PCP Listed? : Yes Patient's Home Caregiver Name/Relationship : Patricio Angel, son Patient's Home Caregiver Medical Durable Power of Plater Hot Dip Name : Patricio Angel Legal Guardian : No Is Guardianship Needed : No YRIS RADFORD Social Worker - 07/26/2019 16:37 EDT Initial Assessment II Sensory and Motor Deficits : None Current Home Treatments and Equipment : Elevated toilet seat, Walker Does the Patient have a Floor to SNF Benefit? : Yes YRIS RADFORD Social Worker - 07/26/2019 16:37 EDT Discharge Needs I Anticipated Discharge Date : 07/27/2019 EDT Anticipated Discharge To, CM : Home with family care, Home with home health Current Home Treatment/Equipment : Current Home Treatment/Equipment No qualifying data available. Post Acute/Home Treatments : None Documentation Status Complete : Yes YRIS RADFORD Social Worker - 07/26/2019 16:37 EDT Discharge Needs II Professional Skilled Services : Professional Skilled Services No qualifying data available. Services and Community Resources : Home Health Needs Assistance with Transportation : No Discharge Options Discussed with Patient : Discharge transportation, DME, Home Health, Short term rehabilitation YRIS RADFORD Social Worker - 07/26/2019 16:37 EDT Narrative Note Narrative Note : Talked w/ this 78 yr old W F admitted w/ back and bi-lat LE pain, now POD # 1 L3 - S1 laminectomy, PLIF, and removal of intrathecal pain pump. Pt lives in the [place] of her son's home, was completely indep prior to admit, active, still drives and does everything for herself. She does have a FRW and elevated toilet seat, no current or previous HH or inpt rehab stays. Spoke w/ son via phone as well. he has taken vacation for the next 10 days to care for pt, states they will discuss if they feel she needs HH svs. he will transport. Denies any needs. Pt's RRS is low @ 27. CM will cont to follow. YRIS RADFORD Social Worker - 07/26/2019 16:37 EDT documented in this encounter Plan of Treatment Not on file documented as of this encounter Visit Diagnoses Not on filedocumented in this encounter
--- OUTSIDE RECORDS SUMMARY | 2024-07-31 08:43 | XMS_ITS | Encounter Summary ---
Author Organization [employer] Address [address] [place] [address] Care Team Providers Care Head Of Biology Name Role Phone Unavailable Primary Care Provider Unavailabl e Encounter Details Date Type Department Care Team (Late st Contact Info) Description 07/26/2019 Transcribed Document [facility] Radiology 1 [place] [address] Ramon Voss MD [facility] [address] [address] Social History Tobacco Use Types Packs/Day [...] Conversion Note - Ramon Voss MD - 07/26/2019 1:13 PM EDT Patient: GUILLERMINA HINOJOSA Age: 78 years Sex: Female : 1940 Associated Diagnoses: None Author: ONOFRE PERRY, MELINDA-EDNA 07/25/2019 cc: medical management s/p L3-S1 PLIF per Dr. Barboza S: Patient found sitting up in bed. [place]. A/O. Reports pain is adequately controlled without pain or numbness to LEs. Ambulated 140ft with rolling walker and minimal assist this morning. Denies cough, dyspnea, fever, n/v. Bowels have not yet moved but patient is passing gas. Abebe recently removed. Patient has not yet urinated since removal. HPI: Patient is a 78 [address] [facility] per Dr. Barboza for an L3-S1 PLIF. Preoperatively patient was found to have advanced spondylolisthesis of the lumbar spine and elected surgical intervention after failing conservative treatment. Patient is followed perioperatively while hospitalized for medical management. Patient seen initially in PACU. Alert. [place]. Denies history of CVA, seizures, DVT. No [...] Gastro-esophageal reflux disease H/O Hemorrhoids Hiatal hernia [place] (hard of hearing) Hyperlipidemia Hypertension Restless legs [...] 24:) 18 (JUL 24:) SBP 135 (JUL 24:00) 135 (JUL 24:) 135 (JUL 24:) DBP 62 (JUL 24:) 62 (JUL 24:) 62 (JUL 24:) SpO2 96 (JUL 24:) 96 (JUL 24:) 96 (JUL 24:) General: [Alert and oriented, no acute distress]. Neurologic: [Awake, alert, and oriented X3, [place] Eye: [PERRL, EOMI, normal conjunctiva]. HENT: [Normocephalic, [place], moist oral mucosa, no scleral icterus Neck: [...] Hx hiatal hernia Hx Restless legs Plan: CIWA with PRN ativan for s/s withdrawal patient declines NRT Monitor HTN; add PRN's, hold parameters continue bowel regimen continue incentive spirometer PT/OT DVT prophylaxis noted Pain [...]
--- OUTSIDE RECORDS SUMMARY | 2024-07-31 08:43 | XMS_ITS | Encounter Summary ---
Author Organization [employer] Address [address] [place] [address] Care Team Providers Care Property Insurance Claims Examiner Name Role Phone Unavailable Primary Care Provider Unavailabl e Encounter Details Date Type Department Care Team (Late st Contact Info) Description 07/25/2019 Transcribed Document [facility] Neurology - [address] [facility] [address] [place] [address] Sebastián Barboza MD [address] [place] [address] Social History Tobacco Use Types [...] Note - Sebastián Barboza MD - 07/25/2019 11:08 AM EDT Patient: GUILLERMINA PEARCE Age: 78 years Sex: Female : 1940 Associated Diagnoses: None Author: AKILAH LOVELACE APRN Chief Complaint back, paolo LE pain Review of Systems ROS reviewed as documented in chart no change since last seen by surgeon Health Status Allergies: Allergic Reactions (Selected) No Known Allergies, Allergies (1) Active Reaction No Known Allergies None Documented Current medications: (Selected) Documented Medications Documented Hair, Skin & Nails: 1 Tab, Oral, Daily, 0 Refill(s) Lasix: 40 mg, Oral, TID, PRN: Edema, 0 Refill(s) Metoprolol Succinate ER: 25 mg, Oral, Daily, 0 Refill(s) Plavix: 75 mg, Oral, Daily, 0 Refill(s) Ventolin HFA: 2 Puff, Inhalation, Q4H, PRN: as needed for wheezing, 0 Refill(s) Vitamin B Complex 100: 1 mL, Oral, Daily, 0 Refill(s) atorvastatin: 40 mg, Oral, Daily, 0 Refill(s) biotin: 5,000 mcg ( 2 tab), Oral, Daily, 0 Refill(s) escitalopram: 20 mg, Oral, Daily, 0 Refill(s) losartan: 25 mg, Oral, Daily, 0 Refill(s) nitroglycerin: 0.4 mg, SubLINgual, Q5Min, PRN: as needed for chest pain, 0 Refill(s) pantoprazole: 40 mg, Oral, Daily, 0 Refill(s) potassium gluconate: 99 mg ( 2 tabs ), Oral, Daily, 0 Refill(s) pramipexole: 2 mg, Oral, At Bedtime, 0 Refill(s) rOPINIRole: 2 mg, Oral, At Bedtime, 0 Refill(s) spironolactone: 25 mg, Oral, Daily, 0 Refill(s), Home Medications (16) Active atorvastatin 40 mg, [...] B Complex 100 1 mL, Oral, Daily , No qualifying data available Problem list: All Problems Skin cancer / SNOMED CT 2280965576 / Confirmed Restless legs syndrome / SNOMED CT 81935288 / Confirmed Hypertension / SNOMED CT 84431662 / Confirmed Hyperlipidemia / SNOMED CT 18393368 / Confirmed Hiatal hernia / SNOMED CT 517019050 / Confirmed H/O Hemorrhoids / SNOMED CT 981040913 / Confirmed [place] (hard of hearing) / SNOMED CT 50546697 / Confirmed GERD - Gastro-esophageal reflux disease / SNOMED CT 4005785779 / Confirmed Shortness of breath / SNOMED CT 775725099 / Confirmed Coronary artery disease s/p CA s/p stents / SNOMED CT 0687857575 / Confirmed Congestive heart failure / SNOMED CT 38013510 / Confirmed Back pain radiates down both legs R> L / SNOMED CT 5359682766 / Confirmed AICD (automatic cardioverter/defibrillator) present [facility] / SNOMED CT 5559413764 / Confirmed At risk for sleep apnea / IMO 64521458 / Confirmed Arthritis / SNOMED CT 4699857 / Confirmed Angina / SNOMED CT 750746500 / Confirmed, Active Problems (16) AICD (automatic cardioverter/defibrillator) present [facility] Angina Arthritis At risk for sleep apnea Back pain radiates down both legs R> L Congestive heart failure Coronary artery disease s/p CA s/p stents GERD - Gastro-esophageal reflux disease H/O Hemorrhoids Hiatal hernia [place] (hard of hearing) Hyperlipidemia Hypertension Restless legs syndrome Shortness of breath Skin cancer Histories Past Medical History: No active or resolved past medical history items have been selected or recorded. Family History: No family history items have been selected or recorded. Procedure history: intrathecal pain pump insertion on 06/22/2018 at 77 Years. heart cath with stents in 2018 at 77 Years. lumbar fusion. hysterectomy. warner. Social History Social & Psychosocial Habits Alcohol 07/19/2019 Alcohol [...] of Tobacco Use 30 Packs/Tins Daily 0.75 . Physical Examination VS/Measurements No qualifying data available General: Alert and oriented, No acute distress, obese. Eye: Pupils are equal, round and reactive to light, Extraocular movements are intact, glasses. HENT: Normocephalic, [place], paolo aids. Neck: Supple, Non-tender. Respiratory: Lungs are clear to auscultation, Respirations are non-labored. Cardiovascular: Normal rate, Regular rhythm, No murmur, No gallop, No edema, L pacemaker/defibrillator. Gastrointestinal: Soft, Non-tender. Genitourinary: No costovertebral angle tenderness. Lymphatics: No lymphadenopathy neck, axilla, groin. Musculoskeletal: painful ROM back, RLE weakness, R lower back pain pump. Integumentary: Warm, Dry, [place]. Neurologic: Alert, Oriented. Psychiatric: Cooperative, Appropriate mood & affect. Review / Management Results review: Labs (Last four charted values) WBC 8.6 (JUL 18) HB L 10.8 (JUL 18) HCT 34.9 (JUL 18) Plt 293 (JUL 18) Na 138 (JUL 18) K 4.1 (JUL 18) Cl 105 (JUL 18) CO2 27 (JUL 18) BUN 12 (JUL 18) Cr 0.80 (JUL 18) Glu R 92 (JUL 18) Ca 8.8 (JUL 18) . Impression and Plan Condition: Stable. documented in this encounter Plan of Treatment Not on file documented as of this encounter Visit Diagnoses Not on filedocumented in this encounter
--- OUTSIDE RECORDS SUMMARY | 2024-07-31 08:43 | XMS_ITS | Encounter Summary ---
Author Organization [employer] Address [address] [place] [address] Care Team Providers Care Food Beverage Attendant Name Role Phone Unavailable Primary Care Provider Unavailabl e Encounter Details Date Type Department Care Team (Late st Contact Info) Description 07/25/2019 Transcribed Document [facility] [place] [facility] [place] [address] ProviderIrasema MD [facility] [address] Social History Tobacco Use Types [...] Historical ProviderMD - 07/25/2019 2:14 PM CDT Pain Assessment Entered On: 07/27/2019 4:35 EDT Performed On: 07/27/2019 5:32 EDT by ALONSO LEE LPN Intervention Information: oxyCODONE Performed by ALONSO LEE LPN on 07/27/2019 04:32:00 EDT oxyCODONE,10mg Oral,Pain (Moderate 4-6) Pain Assessment Pain Assessment : Follow-up assessment Pain Scale Goal : 4 Pain Scale Used : 0-10 Scale ALONSO LEE LPN - 07/27/2019 4:35 EDT Pain Scale Intensity : 4 ALONSO LEE LPN - 07/27/2019 4:35 EDT Image 4 - Images currently included in the form version of this document have not been included in the text rendition version of the form. documented in this encounter Plan of Treatment Not on file documented as of this encounter Visit Diagnoses Not on filedocumented in this encounter
[2024-07-31] MEDS: BARIUM SULFATE (E-Z-HD 340GM);135ML BOTTLE 135 ML PO (09:49)
[2024-07-31] MEDS: E-Z-GASII EFFERVESCENT GRANULES;1PK 1 EACH PO (09:49)
[2024-07-31] MEDS: BARIUM SULFATE(E-Z-AC);750ML BOTTLE 750 ML PO (09:49)
[2024-07-31] MEDS: SODIUM CHLORIDE 0.9% 10ML SYR (RAD ONLY) 10 ML IV (09:55)
[2024-07-31] MEDS: IOPAMIDOL-370 (76%);100ML BOTTLE 100 ML IV (09:55)
--- NOTE | 2024-07-31 10:00 | FL_ITS ---
FINAL REPORT CLINICAL HISTORY: dysphagia 389.81 dap 0.36 fluoro time FINDINGS: BARIUM SWALLOW HISTORY: Dysphagia, reflux. TECHNIQUE: The patient ingested barium contrast. Spot films were performed. A total of 30 images were saved. FINDINGS: There is a moderate sliding type hiatal hernia. There is gastroesophageal reflux to the thoracic inlet. No mucosal defects are seen. There is mild esophageal dysmotility. No changes of esophagitis are evident. 13 mm barium tablet passes easily through the esoophagus and into the stomach. FLUOROSCOPY TIME: 0.36 minutes Radiation exposure in Total DAP: 389.81 uGym2 IMPRESSION: Moderate hiatal hernia with gastroesophageal reflux. Esophageal dysmotility. Reviewed, Interpreted and Dictated by Fran Del Cid MD Transcribed by Kamila Valadez PA-C Authenticated and [facility]
--- NOTE | 2024-07-31 10:45 | CT_ITS ---
FINAL REPORT TECHNIQUE: Multiple axial CT sections were performed from the foramen magnum to the vertex. Coronal and sagittal reformatted images were also obtained. Precontrast and postcontrast injection images were obtained. This study was performed with technique to keep radiation doses as low as reasonably achievable, (ALARA). Individualized dose reduction techniques using automated exposure control or adjustment of mA and/or kV according to the patient size were employed. CLINICAL HISTORY: Fall on anticoagulation, episodes of AMS COMPARISON: 03/14/2024 FINDINGS: Mild age-appropriate atrophy is present. Physiologic calcifications are noted in the basal ganglia. There is no evidence of hemorrhage. No masses are identified. No extra-axial fluid collection is seen. There is lobular mucoperiosteal thickening present in the right maxillary sinus. No osseous abnormality is seen on the bone window images. Postcontrast images demonstrate no abnormal enhancement. IMPRESSION: Mild age-appropriate atrophy, without acute intracranial abnormality or enhancement. Reviewed, Interpreted and Dictated by Fran Del Cid MD Transcribed by Lizett Douglas Authenticated and [facility]
== END 2024-07-31 23:59 | disposition home or self-care (01) ==
LOC: RAD 08:36
PROVIDERS: PCP Internal Medicine; Visit Provider Internal Medicine
DX: G31.9 Degenerative disease of nervous system, unspecified (principal); K21.9 Gastro-esophageal reflux disease without esophagitis; K44.9 Diaphragmatic hernia without obstruction or gangrene; K22.89 Other specified disease of esophagus; Z79.01 Long term (current) use of anticoagulants; W19.XXXA Unspecified fall, initial encounter
CPT/HCPCS: 70470; 74220; Q9967

== ENCOUNTER 2024-09-13 15:38 | Outpatient (CLI) | payer MEDICARE, BC, SELFPAY ==
--- OUTSIDE RECORDS SUMMARY | 2024-09-13 15:42 | XMS_ITS | Encounter Summary ---
Author Organization [employer] ([place], [place], [place], [place]) Address [address] [place] [address] Care Team Providers Care Credentials Specialist Name Role Phone Unavailable Primary Care Provider Unavailabl e Encounter Details Date Type Department Care Team (Late st Contact Info) Description 07/25/2019 Transcribed Document [facility] Neurology - [address] [facility] [address] [place] [address] Sebastián Barboza MD [address] [place] [address] Social History Tobacco Use Types [...] 6. Intraoperative CT scan with stereotactic navigation. INSTRUCTOR PAINTING: Salvador Suarez PA-C TYPE OF ANESTHESIA: GEA. [...] stereotactic navigation, the usual freehand techniques, the [employer] system, pedicle screws were placed at L3, [...] 300 mL. DRAINS: [place]. COMPLICATIONS: None. /[id number] Sebastián Barboza MD MPT/AQ / MPT / MODL /[id number] CC: Heath Rogers Dr documented in this encounter Plan of Treatment Not on file documented as of this encounter Visit Diagnoses Not on filedocumented in this encounter
--- OUTSIDE RECORDS SUMMARY | 2024-09-13 15:42 | XMS_ITS | Encounter Summary ---
Author Organization [employer] ([place], [place], [place], [place]) Address [address] [place] [address] Care Team Providers Care Antisqueak Filler Name Role Phone Unavailable Primary Care Provider Unavailabl e Encounter Details Date Type Department Care Team (Late st Contact Info) Description 07/26/2019 Transcribed Document [facility] [place] [address] [place] [address] ProviderIrasema MD [address] [place] [address] Social History Tobacco Use Types [...]
--- OUTSIDE RECORDS SUMMARY | 2024-09-13 15:42 | XMS_ITS | Encounter Summary ---
Author Organization [employer] ([place], [place], [place], [place]) Address [address] [place] [address] Care Team Providers Care Metal Fitters And Machinists Name Role Phone Unavailable Primary Care Provider Unavailabl e Encounter Details Date Type Department Care Team (Late st Contact Info) Description 07/25/2019 Transcribed Document [facility] [place] [address] [place] [address] ProviderIrasema MD [address] [place] [address] Social History Tobacco Use Types [...] Eval and Treat Ordered By: GRETA SOTOMAYOR MD-U 07/26/2019 11:11 PT Additional Treatment Ordered By: [...] AMAYA GARIBAY, PT - 07/26/2019 11:12 EDT Ground Transportation Operator Goals Mobility/Bed Mobility LTG PT Grid Goal [...]
--- OUTSIDE RECORDS SUMMARY | 2024-09-13 15:42 | XMS_ITS | Encounter Summary ---
Author Organization [employer] ([place], [place], [place], [place]) Address [address] [place] [address] Care Team Providers Care Pickle Maker Name Role Phone Unavailable Primary Care Provider Unavailabl e Encounter Details Date Type Department Care Team (Late st Contact Info) Description 07/26/[address] [facility] Radiology [address] [place] [address] Ramon Voss MD [address] [facility] [address] [place] [address] Social History Tobacco Use Types Packs/Day [...] S: Patient found sitting up in bed. [place]. A/O. Reports pain is adequately controlled without pain or numbness to LEs. Ambulated 140ft with rolling walker and minimal assist this morning. Denies cough, dyspnea, fever, n/v. Bowels have not yet moved but patient is passing gas. Abebe recently removed. Patient has not yet urinated since removal. HPI: Patient is a 78 yo female admitted to [facility] per Dr. Barboza for an L3-S1 PLIF. Preoperatively patient was found to have advanced spondylolisthesis of the lumbar spine and elected surgical intervention after failing conservative treatment. Patient is followed perioperatively while hospitalized for medical management. Patient seen initially in PACU. Alert. [place]. Denies history of CVA, seizures, DVT. No [...] Congestive heart failure Coronary artery disease s/p [place] s/p stents GERD - Gastro-esophageal reflux disease H/O Hemorrhoids Hiatal hernia [place] (hard of hearing) Hyperlipidemia Hypertension Restless legs [...] distress]. Neurologic: [Awake, alert, and oriented X3, [place] Eye: [PERRL, EOMI, normal conjunctiva]. HENT: [Normocephalic, [place], moist oral mucosa, no scleral icterus Neck: [...]
--- OUTSIDE RECORDS SUMMARY | 2024-09-13 15:42 | XMS_ITS | Encounter Summary ---
Author Organization [employer] ([place], [place], [place], [place]) Address [address] [place] [address] Care Team Providers Care Java Web Developer Name Role Phone Unavailable Primary Care Provider Unavailabl e Encounter Details Date Type Department Care Team (Late st Contact Info) Description 06/25/2019 Transcribed Document [facility] [place] [facility] [place] [address] ProviderIrasema MD [address] [place] [address] Social History Tobacco Use Types [...] On: 06/25/2019 13:38 EDT by KALYAN HASSAN, melter operator Documentation Discharge Date/Time : 06/25/2019 14:45 EDT [...] KALYAN HASSAN, RN - 06/25/2019 13:38 EDT documented in this encounter Plan of Treatment Not on file documented as of this encounter Visit Diagnoses Not on filedocumented in this encounter
--- OUTSIDE RECORDS SUMMARY | 2024-09-13 15:42 | XMS_ITS | Encounter Summary ---
Author Organization [employer] ([place], [place], [place], [place]) Address [address] [place] [address] Care Team Providers Care Shipping Associate Name Role Phone Unavailable Primary Care Provider Unavailabl e Encounter Details Date Type Department Care Team (Late st Contact Info) Description 07/27/2019 Transcribed Document [facility] [place] [address] [place] [address] ProviderIrasema MD [address] [place] [address] Social History Tobacco Use Types [...] Conversion Note - Irasema ProviderMD - 07/27/2019 11:32 AM CDT Patient Education Materials Follows: Spinal Fusion, Adult, Care After This sheet gives you information about how to care for yourself after your procedure. Your doctor may also give you more specific instructions. If you have problems or questions, contact your doctor. Follow these instructions at home: Medicines ??? Take wmub-jec-jhnailr and prescription medicines only as told by [...] cannot use soap and water, use hand power distribution engineer. ? Change your bandage as told by [...] your pee (urine) pale yellow. ? Take qfdl-bwz-dlhmcsr or prescription medicines. ? Eat foods that [...] 05/27/2011 Document Revised: 05/17/2017 Document Reviewed: 05/17/2017 [employer] Interactive Patient Education ? 2020 [place]. documented in this encounter Plan of Treatment Not on file documented as of this encounter Visit Diagnoses Not on filedocumented in this encounter
--- OUTSIDE RECORDS SUMMARY | 2024-09-13 15:42 | XMS_ITS | Encounter Summary ---
Author Organization [employer] ([place], [place], [place], [place]) Address [address] [place] [address] Care Team Providers Care Wallpaperer Name Role Phone Unavailable Primary Care Provider Unavailabl e Encounter Details Date Type Department Care Team (Late st Contact Info) Description 07/26/2019 Transcribed Document [facility] Neurology - [address] [facility] [address] [place] [address] Greta Sotomayor MD [address] [place] [address] Social History Tobacco Use Types Packs/Day Years Used Date Smoking Tobacco: Never Assessed Comments Unknown Sex and Gender Information Value Date Recorded Sex Assigned at Female 08/11/2021 8:42 PM CDT Legal Sex Female 8:42 PM CDT Gender Identity Female 08/11/2021 8:42 PM CDT Sexual Orientation Not on file documented as of this encounter Miscellaneous Notes * Cerner Conversion Note - Greta Sotomayor MD - 07/26/2019 10:25 AM EDT Patient: [...] pain control - may need rehab at tx depending on mobility - medicine following VTE Prophylaxis - Medical Heparin 5,000 Units, SubCutaneous, Inj, Q8H, Routine, Start 07/26/19 7:37:00 EDT (NISHANT WATTS) Sequential Compression Device Start: 07/25/19 14:14:00 EDT, Bilateral, Continuous Order (GRETA SOTOMAYOR) Subjective c/o back pain leg pain better [...]
--- OUTSIDE RECORDS SUMMARY | 2024-09-13 15:42 | XMS_ITS | Encounter Summary ---
Author Organization [employer] ([place], [place], [place], [place]) Address [address] [place] [address] Care Team Providers Care Billing Typist Name Role Phone Unavailable Primary Care Provider Unavailabl e Encounter Details Date Type Department Care Team (Late st Contact Info) Description 07/27/2019 Transcribed Document [facility] Radiology [address] [place] [address] Ramon Voss MD [address] [address] Social History Tobacco Use Types [...] 1940 Associated Diagnoses: None Author: ONOFRE PERRY, MANAGER LEGAL-EDNA cc: medical management s/p L3-S1 PLIF per Dr. Barboza S: Patient found up to bedside recliner eating breakfast. A/O. [place]. LBP is adequately controlled. Ambulating with walker assist with therapy. Eager for discharge home today. Denies cough, dyspnea, fever, n/v or dysuria. Bowels have not yet moved but patient is passing gas and tolerating a po diet. HPI: Patient is a 78 yo female admitted to [facility] per Dr. Barboza for an L3-S1 PLIF. Preoperatively patient was found to have advanced spondylolisthesis of the lumbar spine and elected surgical intervention after failing conservative treatment. Patient is followed perioperatively while hospitalized for medical management. Patient seen initially in PACU. Alert. [place]. Denies history of CVA, seizures, DVT. No [...] Congestive heart failure Coronary artery disease s/p ID s/p stents GERD - Gastro-esophageal reflux disease H/O Hemorrhoids Hiatal hernia [place] (hard of hearing) Hyperlipidemia Hypertension Restless legs [...] distress]. Neurologic: [Awake, alert, and oriented X3, [place] Eye: [PERRL, EOMI, normal conjunctiva]. HENT: [Normocephalic, [place], moist oral mucosa, no scleral icterus Neck: [...] mg/dL 07/27/2019 04:20 Glucose Level 114 mg/dL [place] 07/27/2019 04:20 Calcium Level 8.1 mg/dL LOW 07/27/2019 04:20 Creatinine Level 0.70 mg/dL 07/27/2019 04:20 Cardiac Markers (Current Encounter/Past 24 Hours) No Cardiac Marker Results Found (Past 24 Hours) CBC Results (Current Encounter/Past 24 Hours) WBC 12.5 K/uL ME 07/27/2019 04:11 Hct 26.0 % LOW 07/27/2019 [...]
--- OUTSIDE RECORDS SUMMARY | 2024-09-13 15:42 | XMS_ITS | Encounter Summary ---
Author Organization [employer] ([place], [place], [place], [place]) Address [address] [place] [address] Care Team Providers Care Polishing Machine Operator Helper Name Role Phone Unavailable Primary Care Provider Unavailabl e Encounter Details Date Type Department Care Team (Late st Contact Info) Description 07/24/2019 Transcribed Document [facility] [place] [address] [place] [address] ProviderIrasema MD [address] [place] [address] Social History Tobacco Use Types [...] Performed On: 07/24/2019 14:59 EDT by SANNA MARRREO Wire Loop Machine Operator Primary Insurance Authorization Authorization and Policy Numbers : Insurance 1 Health Plan: MEDICARE Policy Number: [id number] Authorization Number: Insurance 2 Health Plan: ANTH HM[employer] Policy Number: [id number] Authorization Number: Insurance Primary Name : Medicare Authorized Service Begin Date-Primary : 07/25/2019 EDT Authorization Comments-Primary : Pt is scheduled for INPT Lumbar Fusiion Posterior 3 Level Intrathecal Pain Pump replace/revise on 07-25-2019 Medicare: NPR Historical Authorization Comments-Primary : No Authorization Comments Found SANNA MARRERO, Wire Loop Machine Operator - 07/24/2019 14:59 EDT documented in this encounter Plan of Treatment Not on file documented as of this encounter Visit Diagnoses Not on filedocumented in this encounter
--- OUTSIDE RECORDS SUMMARY | 2024-09-13 15:42 | XMS_ITS | Encounter Summary ---
Author Organization [employer] ([place], [place], [place], [place]) Address [address] [place] [address] Care Team Providers Care Tour Sales Representative Name Role Phone Unavailable Primary Care Provider Unavailabl e Encounter Details Date Type Department Care Team (Late st Contact Info) Description 07/25/2019 Transcribed Document [facility] [place] [facility] [place] [address] ProviderIrasema MD [address] [place] [address] Social History Tobacco Use Types [...]
--- OUTSIDE RECORDS SUMMARY | 2024-09-13 15:42 | XMS_ITS | Encounter Summary ---
Author Organization [employer] ([place], [place], [place], [place]) Address [address] [place] [address] Care Team Providers Care Simplex Operator Name Role Phone Unavailable Primary Care Provider Unavailabl e Encounter Details Date Type Department Care Team (Late st Contact Info) Description 06/25/2019 Transcribed Document [facility] [place] Medicine [address] [place] [address] ProviderIrasema MD [address] [place], [place] [id number] Social History Tobacco Use Types Packs/Day Years [...] KALYAN HASSAN, RN - 06/25/2019 14:53 EDT documented in this encounter Plan of Treatment Not on file documented as of this encounter Visit Diagnoses Not on filedocumented in this encounter
--- OUTSIDE RECORDS SUMMARY | 2024-09-13 15:42 | XMS_ITS | Encounter Summary ---
Author Organization [employer] ([place], [place], [place], [place]) Address [address] [place] [address] Care Team Providers Care Physician Office Clin Asst Name Role Phone Unavailable Primary Care Provider Unavailabl e Encounter Details Date Type Department Care Team (Late st Contact Info) Description 07/27/2019 Transcribed Document [facility] [place] [address] [place] [address] ProviderIrasema MD [address] [place] [address] Social History Tobacco Use Types [...] Conversion Note - Historical ProviderMD - 07/27/2019 4:34 PM CDT Final Discharge Planning Entered On: 07/27/2019 16:37 EDT Performed On: 07/27/2019 16:34 EDT by PERFECTO DONALDSON RN-Octave Board Assembler Final Discharge Planning Discharge Arrangements : Patient [...] Health Services (Related/SOC within 3 days)-06 PERFECTO DONALDSON RN-Octave Board Assembler - 07/27/2019 16:34 EDT Final Narrative Note Final Narrative Note : DC orders noted. Met with pt and son at bedside to discuss DCP. They agree to HH and have no TRAIN CREW MEMBER preference. Referral sent to [facility] via [employer] and confirmed acceptance with [place] in intake. No other CM needs identified. PERFECTO DONALDSON RN-Octave Board Assembler - 07/27/2019 16:34 EDT documented in this encounter Plan of Treatment Not on file documented as of this encounter Visit Diagnoses Not on filedocumented in this encounter
--- OUTSIDE RECORDS SUMMARY | 2024-09-13 15:42 | XMS_ITS | Encounter Summary ---
Author Organization [employer] ([place], [place], [place], [place]) Address [address] [place] [address] Care Team Providers Care Company Controller Name Role Phone Unavailable Primary Care Provider Unavailabl e Encounter Details Date Type Department Care Team (Late st Contact Info) Description 07/27/2019 Transcribed Document [facility] [place] Medicine [facility] [place] [address] ProviderIrasema MD [address] [place] [address] Social History Tobacco Use Types [...] SHITAL GUTIERREZ, PT - 07/27/2019 16:36 EDT [facility] Goals Mobility/Bed Mobility LTG PT Grid Goal [...] SHEILA LI PTA - 07/27/2019 11:13 EDT documented in this encounter Plan of Treatment Not on file documented as of this encounter Visit Diagnoses Not on filedocumented in this encounter
--- OUTSIDE RECORDS SUMMARY | 2024-09-13 15:42 | XMS_ITS | Encounter Summary ---
Author Organization [employer] ([place], [place], [place], [place]) Address [address] [place] [address] Care Team Providers Care Pattern Scratcher Name Role Phone Unavailable Primary Care Provider Unavailabl e Encounter Details Date Type Department Care Team (Late st Contact Info) Description 07/25/2019 Transcribed Document [facility] Radiology [address] [place] [address] Ramon Voss MD [address] [address] Social History Tobacco Use Types [...] is a 78 yo female admitted to [facility] per Dr. Barboza for an L3-S1 PLIF. Preoperatively patient was found to have advanced spondylolisthesis of the lumbar spine and elected surgical intervention after failing conservative treatment. Patient is followed perioperatively while hospitalized for medical management. Patient seen initially in PACU. Alert. [place]. Denies history of CVA, seizures, DVT. No [...] Congestive heart failure Coronary artery disease s/p VT s/p stents GERD - Gastro-esophageal reflux disease H/O Hemorrhoids Hiatal hernia [place] (hard of hearing) Hyperlipidemia Hypertension Restless legs [...] distress]. Neurologic: [Awake, alert, and oriented X3, [place] Eye: [PERRL, EOMI, normal conjunctiva]. HENT: [Normocephalic, [place], moist oral mucosa, no scleral icterus Neck: [...]
--- OUTSIDE RECORDS SUMMARY | 2024-09-13 15:42 | XMS_ITS | Encounter Summary ---
Author Organization [employer] ([place], [place], [place], [place]) Address [address] [place] [address] Care Team Providers Care Sawmill Hand Name Role Phone Unavailable Primary Care Provider Unavailabl e Encounter Details Date Type Department Care Team (Late st Contact Info) Description 07/26/2019 Transcribed Document [facility] [place] Medicine [address] [place] [address] ProviderIraesma MD [address] [place] [address] Social History Tobacco Use Types [...] Conversion Note - Historical ProviderMD - 07/26/2019 11:11 AM CDT Treatment [...] : 07/25/2019 06:54 Assisted by, PT : transportation planning technician/aide Personal Devices : Personal Devices No [...] Time : 26 Minute(s) SHEILA LI PTA 07/26/2019 15:05 EDT Therapeutic Activities Transfer Activities [...] SHEILA LI PTA - 07/26/2019 15:05 EDT [facility] Goals Mobility/Bed Mobility LTG PT Grid Goal #1 Goal #2 Activity : Supine to sit Sit to stand Assist : Independent, modified Independent, modified Date to Meet : 08/09/2019 EDT 08/09/2019 EDT Goal Status : Progressing, continue Progressing, continue Comment : via logroll GUILLERMO NELLY SOSA - 07/26/2019 15:05 EDT GUILLERMO NELLY SOSA - 07/26/2019 15:05 EDT Ambulation LTG Grid Goal #1 Device : Walker, front wheel Distance : 300ft Assist : Independent, modified Date to Meet : 08/09/2019 EDT Goal Status : Progressing, continue GUILLERMO NELLY SOSA - 07/26/2019 15:05 EDT Treatment Note Subjective [...] GUILLERMO NELLY SOSA - 07/26/2019 15:05 EDT [facility] PT Charges CABINET ABRASIVE SANDBLASTER PT Therap. Exercise 15 min-CABINET ABRASIVE SANDBLASTER : 1 Gait Training Each 15 Min-CABINET ABRASIVE SANDBLASTER : 1 SHEILA LI PTA - 07/26/2019 15:05 EDT documented in this encounter Plan of Treatment Not on file documented as of this encounter Visit Diagnoses Not on filedocumented in this encounter
--- OUTSIDE RECORDS SUMMARY | 2024-09-13 15:42 | XMS_ITS | Encounter Summary ---
Author Organization [employer] ([place], [place], [place], [place]) Address [address] [place] [address] Care Team Providers Care Entry Level Civil Engineer Name Role Phone Unavailable Primary Care Provider Unavailabl e Encounter Details Date Type Department Care Team (Late st Contact Info) Description 07/25/2019 Transcribed Document [facility] [place] [address] [place] [address] ProviderIrasema MD [address] [place] [address] Social History Tobacco Use Types [...] Conversion Note - Historical ProviderMD - 07/25/2019 12:07 PM CDT [facility] Main OR IntraOp Summary Primary Physician: GRETA SOTOMAYOR MD-SNU Finalized Date/Time: 07/26/19 10:29:18 Pt. Name: GUILLERMINA HINOJOSA Zaida Taveras/Sex: 1940 Female Med Rec #: [id number] Physician: GRETA SOTOMAYOR MD-SNU Financial #: [id number] Pt. Type: I Room/Bed: [facility]/ Admit/Disch: 07/25/19 06:54:00 - Institution: [facility] IntraOp Case Attendance Entry 1 Entry 2 Entry 3 Case Attendee GRETA SOTOMAYOR Byrd, Charlie D, RN COMBEST, ASHLEY P, ELOCUTION TEACHER MD-SNU Role Performed Surgeon/Proceduralist, Emergency Services Dispatcher, First ELOCUTION TEACHER/Nurse Forecast Analyst First Time In 07/25/19 11:31:00 07/25/19 11:31:00 07/25/19 11:31:00 Time Out 07/25/19 14:38:00 07/25/19 14:38:00 07/25/19 14:38:00 Procedure Lumbar Fusion Posterior Lumbar Fusion Posterior Lumbar Fusion Posterior 3 Level, Intrathecal 3 Level, Intrathecal 3 Level, Intrathecal Pain Pump Replace/Revise Pain Pump Replace/Revise Pain Pump Replace/Revise Other Attendee Superficial Wound Closed By: Last Modified By: ROBY MORROW, RN RBOY MORROW, RN ROBY MORROW, RN 07/25/19 14:38:13 07/25/19 14:38:13 07/25/19 14:38:13 Entry 4 Entry 5 Entry 6 Case Attendee NISHANT WATTS, LUZ WEEMS, PATRICIA SWANN RN Role Performed Physician client services assistant Scrub, First Emergency Services Dispatcher, Second Time In 07/25/19 11:31:00 07/25/19 11:31:00 [...] #1 GREG BARRAZA Role Performed Anesthesiologist of Vendor Director Of Early Childhood Record Time In 07/25/19 11:31:00 07/25/19 11:31:00 [...] Case Attendee ROBY MORROW, RN KENNETH SMITH, RIVET TESTER Role Performed Emergency Services Dispatcher, Second Scrub, First Time In 07/25/19 12:21:00 07/25/19 11:31:00 Time Out 07/25/19 14:38:00 07/25/19 12:00:00 Procedure Lumbar Fusion Posterior Lumbar Fusion Posterior 3 Level, Intrathecal 3 Level, Intrathecal Pain Pump Replace/Revise Pain Pump Replace/Revise Other Attendee [facility] Superficial Wound Closed By: Last Modified By: ROBY MORROW, ROBY BLACKBURN, RN 07/25/19 14:38:13 07/25/19 14:38:13 [facility] IntraOp Case Attendance Audit 07/25/19 14:38:13 Fire Prevention Bureau Captain: GOYO Modifier: [email or web address] 1 <+> Time Out 1 <*> Procedure [...] Level, Intrathecal Pain Pump Replace/Revise 07/25/19 14:09:37 Fire Prevention Bureau Captain: [email or web address] Modifier: WASSONSY 1 <*> Procedure Lumbar Fusion [...] Level, Intrathecal Pain Pump Replace/Revise 07/25/19 12:25:06 Fire Prevention Bureau Captain: [email or web address] Modifier: [email or web address] <+> 11 Case Attendee <+> 11 Role Performed <+> 11 Time Out <+> 11 Procedure <+> 11 Other Attendee 07/25/19 12:24:05 Fire Prevention Bureau Captain: [email or web address] Modifier: [email or web address] 6 <+> Time Out 6 <*> Procedure Lumbar Fusion Posterior 3 Level, Intrathecal Pain Pump Replace/Revise 07/25/19 12:23:46 Fire Prevention Bureau Captain: [email or web address] Modifier: [email or web address] 1 <*> Procedure Lumbar [...] Time In <+> 10 Procedure 07/25/19 12:15:49 Fire Prevention Bureau Captain: ALBINO Modifier: ALBINO 1 <+> Time In [...] Role Performed <+> 9 Procedure 07/25/19 11:31:28 Fire Prevention Bureau Captain: ALBINO Modifier: ALBINO <+> 1 Procedure <+> [...] 8 Role Performed <+> 8 Other Attendee [facility] IntraOp Case Times Entry 1 Patient In Room Time 07/25/19 11:31:00 Out Room Time 07/25/19 14:38:00 Anesthesia Start Time 07/25/19 11:31:00 Stop Time 07/25/19 14:38:00 Surgery / Procedure Times Start Time 07/25/19 12:07:00 Stop Time 07/25/19 14:27:00 Last Modified By: ROBY MORROW RN 07/25/19 14:38:12 [facility] IntraOp Case Times Audit 07/25/19 14:38:12 Fire Prevention Bureau Captain: WASSONSY Modifier: WASSONSY <+> 1 Out Room Time <+> 1 Stop Time 07/25/19 14:27:17 Fire Prevention Bureau Captain: WASSONSY Modifier: WASSONSY <+> 1 Stop Time 07/25/19 14:19:32 Fire Prevention Bureau Captain: WASSONSY Modifier: WASSONSY 1 <-> Stop Time 07/25/19 14:07:00 07/25/19 14:09:32 Fire Prevention Bureau Captain: [email or web address] Modifier: WASSONSY <+> 1 Stop Time 07/25/19 12:11:18 Fire Prevention Bureau Captain: [email or web address] Modifier: [email or web address] <+> 1 Start Time [facility] IntraOp Cautery Entry 1 Entry 2 ESU Identification Cautery Type Monopolar ESU BiPolar ESU Cautery Type Comments ID Number [id number] ID Type Hospital Number Hospital Number Cautery [...] Charlie D, RN 07/25/19 12:26:32 07/25/19 12:26:32 [facility] IntraOp Communication Entry 1 Communication To Family/Significant other Comment START Communication By Kota Napoles RN Date and Time 07/25/19 12:17:00 Last Modified By: Kota Napoles RN 07/25/19 12:20:31 [facility] IntraOp Counts Verification Entry 1 Procedure Lumbar Fusion Posterior 3 Level, Intrathecal Pain Pump Replace/Revise Count Info Count Type Sponge, Sharps, Miscellaneous Counts Verification Baseline/pre-procedure Sequence Count Results Not Applicable Counts Performed By Count Performed By KENNETH SMITH CST (Scrub) Count Performed By PATRICIA LAMA, RN (RN) Last Modified By: Kota Napoles RN 07/25/19 12:25:25 [facility] IntraOp Counts Final Entry 1 Procedure Lumbar Fusion Posterior 3 Level, Intrathecal Pain Pump Replace/Revise Final Count Info Count Type Sponge, Sharps, Miscellaneous Counts Verification Skin Closure/end of Sequence procedure Count Results Correct, surgeon notified Counts Performed By Count Performed By LUZ ALVAREZ ST (Scrub) Count Performed By Kota Napoles, RN (RN) Last Modified By: ROBY MORROW RN 07/25/19 14:03:34 [facility] IntraOp Cultures and Spec Summary Entry 1 Cultrures and Specimens Specimen Ordered: Yes Test(s) Routine/Path-Lab Requested/Final Disposition Last Modified By: Kota Napoles RN 07/25/19 12:18:15 General Comments: A. EXPLANTED PAIN PUMP [facility] IntraOp Departure from OR Entry 1 Integumentary Assessment Integumentary WDL Assessment WDL Transfer/Handoff Transfer to PACU Phase I Handoff Method Bedside/Face to face, Phone call Handoff Reported to Ml Wilburn RN Post-op Transport Stretcher/rwhitehouse Via Patient Transport DAT SKINNER, Accompanied by MAC POWERS JUSTIN, PA-C Last Modified By: ROBY MORROW RN 07/25/19 14:04:08 [facility] IntraOp Departure from OR Audit 07/25/19 14:04:08 Fire Prevention Bureau Captain: [email or web address] Modifier: WASSONSY 1 <+> Patient Transport Accompanied by 1 <*> Handoff Method Phone call [facility] IntraOp Drains and Tubes Entry 1 Device Type Baltazar Drain Size 15 FR Drain/Tube Activity Inserted Drain/Tube Suction Bulb Drain/Tube Drainage Serosanguineous Device Location OP SITE Method of Drainage Compression Last Modified By: ROBY MORROW RN 07/25/19 13:53:54 [facility] IntraOp Dressing and Packing Entry 1 Type Dressing Location OP SITE Wound Dressing Item Steristrip, Other Applied By NISHANT WATTS PA-C Other Comments NEOSPORIN OINTMENT, STERISTRIPS, COVADERMS Last Modified By: Kota Napoles RN 07/25/19 12:51:25 [facility] IntraOp Fire Risk Assessment Entry 1 Fire Info Surgical Site or 0- No Incision Above the Xyphoid Open O2 Source 0- No (Mask or Cannula) Available Ignition 1- Yes (ESU, Laser, Light Source) Fire Risk 1 Assessment Score Fire Score Fire Risk Yes Assessment Complete Fire Risk Kota Napoles, bumboater Verified By Fire Risk 07/25/19 11:29:00 Assessment Verified Date/Time Fire Risk Standard Fire Yes Safety Precautions Followed Last Modified By: Kota Napoles RN 07/25/19 12:16:13 [facility] IntraOp General Case Bird Sitter 1 Case Information OR OR 10 [facility] Case Level 1 Room Verified Yes Wound Class I - Clean Specialty SN Neurosurgery Anesthesia Type General ASA Class 3 Diagnosis Preop Diagnosis LUMBAR RADICULOPATHY Postop Same As Preop No Postop Diagnosis SEE MD POST OP NOTES Last Modified By: Kota Napoles RN 07/25/19 12:17:04 [facility] IntraOp Implant Log Entry 1 Entry 2 Entry 3 Type Tissue Implant Implant (Synthetic) Implant (Synthetic) (Biologic) Implant Log Implant Type Hardware Hardware Tissue Implant Type Other Implant BONE VIVIGEN FRMBLE SCR SPNE SHAHRIAR FIX SCR SPNE SHAHRIAR FIX FEN Identification CELL [id number] Description Implant Quantity 1 2 4 Implant Site OP SITE OP SITE OP SITE Implant Identification Model Number Implant [id number] Identification Serial Number Implant Identification Lot Number Implant Lifenet:Lifenet J&J:Depuy:Depuy Spine J&J:Depuy:Depuy Spine Identification Transplant Srv Attending Physician Name: Implant [id number] Identification Catalog Number Implant Size Implant Has an Yes Expiration Date Implant Expiration 06/19/20 Date Wasted Radioactive Material Time Implanted Tissue Implant Continue for Tissue Implant Documentation Tissue Identification Number Graft Prep Per Attending Physician Instructions: Tissue Preparation Method: Reconstitution Solution: Reconstitution Solution Lot Number Reconstitution Solution Expiration Date: Thawing Solution Thawing Solution Lot Number Thawing Solution Expiration Date Preparation Materials, Other Preparation Materials, Other Lot Number Preparation Materials, Other Expiration Date Tissue Prepared/Processed By Attending Physician Paperwork Completed Implant Type Comment Last Modified By: ROBY MORROW RN WASSON, SANDRA D, RN WASSON, SANDRA D, RN 07/25/19 13:25:36 07/25/19 13:59:42 07/25/19 13:59:42 Entry 4 Entry 5 Entry 6 Type Implant (Synthetic) Implant (Synthetic) Implant (Synthetic) Implant Log Implant Type Hardware Hardware Hardware Tissue Implant Type Implant SCR SPNE SHAHRIAR FIX SCR ILIAM 8MM X 90MM CEMENT SPINAL Identification [id number] Description Implant Quantity 2 2 1 Implant Site OP SITE OP SITE OP SITE Implant Identification Model Number Implant Identification Serial Number Implant Identification Lot Number Implant J&J:Depuy:Depuy Spine J&J:Depuy:Depuy Spine J&J:Depuy:Depuy Spine Identification Attending Physician Name: Implant [id number] Identification Catalog Number Implant Size Implant Has an Expiration Date Implant Expiration Date Wasted Radioactive Material Time Implanted Tissue Implant Continue for Tissue Implant Documentation Tissue Identification Number Graft Prep Per Attending Physician Instructions: Tissue Preparation Method: Reconstitution Solution: Reconstitution Solution Lot Number Reconstitution Solution Expiration Date: Thawing Solution Thawing Solution Lot Number Thawing Solution Expiration Date Preparation Materials, Other Preparation Materials, Other Lot Number Preparation Materials, Other Expiration Date Tissue Prepared/Processed By Attending Physician Paperwork Completed Implant Type Comment Last Modified By: ROBY MORROW RN WASSON, SANDRA D, RN WASSON, SANDRA D, RN 07/25/19 13:59:42 07/25/19 13:59:42 07/25/19 13:59:42 Entry 7 Entry 8 Entry 9 Type Implant (Synthetic) Implant (Synthetic) Implant (Synthetic) Implant Log Implant Type Hardware Hardware Hardware Tissue Implant Type Implant JENN SURG FENESTRATE RIZWANA PRE LOAD [id number] MIS JENN PLY SCRW SET Identification [id number] Description Implant Quantity 1 2 10 Implant Site OP SITE OP SITE OP SITE Implant Identification Model Number Implant Identification Serial Number Implant Identification Lot Number Implant J&J:Depuy J&J:Depuy:Depuy Spine J&J:Depuy:Depuy Spine Identification Attending Physician Name: Implant [id number] Identification Catalog Number Implant Size Implant Has an Expiration Date Implant Expiration Date Wasted Radioactive Material Time Implanted Tissue Implant Continue for Tissue Implant Documentation Tissue Identification Number Graft Prep Per Attending Physician Instructions: Tissue Preparation Method: Reconstitution Solution: Reconstitution Solution Lot Number Reconstitution Solution Expiration Date: Thawing Solution Thawing Solution Lot Number Thawing Solution Expiration Date Preparation Materials, Other Preparation Materials, Other Lot Number Preparation Materials, Other Expiration Date Tissue Prepared/Processed By Attending Physician Paperwork Completed Implant Type Comment Last Modified By: ROBY MORROW RN WASSON, SANDRA D, ROBY BLACKBURN RN 07/25/19 13:59:42 07/25/19 13:59:42 07/25/19 13:59:42 Entry 10 Type Implant (Synthetic) Implant Log Implant Type Hardware Tissue Implant Type Implant RIZWANA PRE-LORD W/LINE Identification [id number] Description Implant Quantity 1 Implant Site OP SITE Implant Identification Model Number Implant Identification Serial Number Implant Identification Lot Number Implant J&J:Depuy:Depuy Spine Identification Attending Physician Name: Implant [id number] Identification Catalog Number Implant Size Implant Has an Expiration Date Implant Expiration Date Wasted Radioactive Material Time Implanted Tissue Implant Continue for Tissue Implant Documentation Tissue Identification Number Graft Prep Per Attending Physician Instructions: Tissue Preparation Method: Reconstitution Solution: Reconstitution Solution Lot Number Reconstitution Solution Expiration Date: Thawing Solution Thawing Solution Lot Number Thawing Solution Expiration Date Preparation Materials, Other Preparation Materials, Other Lot Number Preparation Materials, Other Expiration Date Tissue Prepared/Processed By Attending Physician Paperwork Completed Implant Type Comment Last Modified By: ROBY MORROW RN 07/25/19 13:59:42 [facility] IntraOp Implant Log Audit 07/25/19 13:59:42 Fire Prevention Bureau Captain: WASCLARI Modifier: WASSONSY <+> 2 Implant Identification Description <+> 2 Implant Identification Attending Physician Name: <+> 2 Implant Site <+> 2 Implant Quantity <+> 2 Implant Identification Catalog Number <+> 2 Implant Type <+> 2 Type <+> 3 Implant Identification Description <+> 3 Implant Identification Attending Physician Name: <+> 3 Implant Site <+> 3 Implant Quantity <+> 3 Implant Identification Catalog Number <+> 3 Implant Type <+> 3 Type <+> 4 Implant Identification Description <+> 4 Implant Identification Attending Physician Name: <+> 4 Implant Site <+> 4 Implant Quantity <+> 4 Implant Identification Catalog Number <+> 4 Implant Type <+> 4 Type <+> 5 Implant Identification Description <+> 5 Implant Identification Attending Physician Name: <+> 5 Implant Site <+> 5 Implant Quantity <+> 5 Implant Identification Catalog Number <+> 5 Implant Type <+> 5 Type <+> 6 Implant Identification Description <+> 6 Implant Identification Attending Physician Name: <+> 6 Implant Site <+> 6 Implant Quantity <+> 6 Implant Identification Catalog Number <+> 6 Implant Type <+> 6 Type <+> 7 Implant Identification Description <+> 7 Implant Identification Attending Physician Name: <+> 7 Implant Site <+> 7 Implant Quantity <+> 7 Implant Identification Catalog Number <+> 7 Implant Type <+> 7 Type <+> 8 Implant Identification Description <+> 8 Implant Identification Attending Physician Name: <+> 8 Implant Site <+> 8 Implant Quantity <+> 8 Implant Identification Catalog Number <+> 8 Implant Type <+> 8 Type <+> 9 Implant Identification Description <+> 9 Implant Identification Attending Physician Name: <+> 9 Implant Site <+> 9 Implant Quantity <+> 9 Implant Identification Catalog Number <+> 9 Implant Type <+> 9 Type <+> 10 Implant Identification Description <+> 10 Implant Identification Attending Physician Name: <+> 10 Implant Site <+> 10 Implant Quantity <+> 10 Implant Identification Catalog Number <+> 10 Implant Type <+> 10 Type [facility] IntraOp Intraoperative Assessment Entry 1 Handoff [...] Modified By: Kota Napoles RN 07/25/19 12:26:55 [facility] IntraOp Intraoperative Equipment Entry 1 Type Equipment Equipment Equipment Anna Suction System ID Number [id number] Setting 200 MM HG Intraop Monitoring Electrocardiogram Five lead placement (ECG) Electrode Placement Blood Pressure Non-Invasive BP Device Source Antiembolic Devices Antiembolic Devices Sequential compression device, knee high Antiembolic Device Bilateral Location Antiembolic Device [id number] ID Number Scopes Photo/Video Documentation Photo No Video No Last Modified By: Kota Napoles RN 07/25/19 12:29:42 [facility] IntraOp Medication Admin Entry 1 Entry 2 Entry 3 Medication/Irrigant Bacitracin 50,00units lidocaine 1% w/ Neosporin 15Gm ointment powder vial epinephrine 1:100,000 - [id number] 30ml vial - [id number] Combo Med List Time Administered Route of ADDED TO NS IRRIGATION LOCAL TOPICAL Administration Dose Dose 07935 20 1 Unit of Measure units ml pkt Volume Administered By GRETA SOTOMAYOR TUTT, MATTHEW PAIGE, SAMMONS, JUSTIN, PA-C MD-SNU MD-SNU Procedure Irrigation Irrigant Volume In Irrigant Volume Out Last Modified By: Kota Napoles RN Byrd, Charlie D, RN Byrd, Charlie D, RN 07/25/19 12:39:47 07/25/19 12:39:47 07/25/19 12:39:47 Entry 4 Entry 5 Entry 6 Medication/Irrigant SEALR AQUAMANTYS BIPLR SPNG SURGFOAM thrombin 5000units 6.0-842586 [id number] topical powder - [id number] Combo Med List Time Administered Route of [...] SPINE vancomycin 1Gm vial - vial - [id number] Combo Med List Time Administered Route of LOCAL TOPICAL TOPICAL Administration Dose Dose 30 5 1 Unit of Measure ml ml gram Volume Administered By MAC, NISHANT, PA-C СВЕТЛАНА, GRETA BRIAN, СВЕТЛАНА, GRETA BRIAN, MD-SNU MD-SNU Procedure Irrigation Irrigant Volume In Irrigant Volume Out Last Modified By: Kota Napoles RN WASSON, SANDRA D, RN WASSON, SANDRA D, RN 07/25/19 12:39:47 07/25/19 13:20:09 07/25/19 14:23:06 General Comments: 13 ML'S MEDICATION DISCARDED FROM EXPLANTED PAIN PUMP PER Clive MORROW RN AND WITNESSED PER CRNA. DR СВЕТЛАНА PACHECO AWARE AND DOES NOT KNOW WHAT MEDICATION IS PAIN PUMP [facility] IntraOp Medication Admin Audit 07/25/19 14:23:06 Fire Prevention Bureau Captain: WASSONSY Modifier: WASSONSY 9 <*> Medication/Irrigant vancomycin 1Gm vial - [id number] <*> Medication/Irrigant vancomycin 1Gm vial - [id number] 9 <*> Route of Administration 9 <*> Route of Administration 9 <*> Administered By GRETA SOTOMAYOR MD-SNU 9 <*> Administered By GRETA SOTOMAYOR MD-SNU 9 <*> Dose 9 <*> Dose 9 <*> Unit of Measure 9 <*> Unit of Measure 07/25/19 13:20:09 Fire Prevention Bureau Captain: [email or web address] Modifier: WASSONSY 8 <*> Medication/Irrigant 8 <*> Medication/Irrigant 8 <*> Medication/Irrigant 8 <*> Medication/Irrigant 8 <*> Route of Administration 8 <*> Route of Administration 8 <*> Route of Administration 8 <*> Route of Administration 8 <*> Administered By GREAT SOTOMAYOR MD-SNU 8 <*> Administered By GRETA SOTOMAYOR MD-SNU 8 <*> Administered By GRETA SOTOMAYOR MD-SNU 8 <*> Administered By GRETA SOTOMAYOR MD-SNU 8 <*> Dose 8 <*> Dose 8 <*> Dose 8 <*> Dose 8 <*> Unit of Measure 8 <*> Unit of Measure 8 <*> Unit of Measure 8 <*> Unit of Measure [facility] IntraOp Patient Positioning Entry 1 Procedure [...] AND THIGH PADS Positioned By GRETA SOTOMAYOR MD-YOLI, DAT SKINNER, GIO, NISHANT WATTS PA-C, PATRICIA LAMA, RN, PATRICIA LAMA, RN Position Verified Positioning Yes Verified by Anesthesia Positioning Yes Verified by Surgeon Last Modified By: Kota Napoles RN 07/25/19 12:33:24 [facility] IntraOp Sign In Entry 1 Patient, [...] Modified By: Kota Napoles RN 07/25/19 12:27:33 [facility] IntraOp Sign Out Entry 1 RN [...] Yes Elements Complete? RN Sign Out Kota Napoles RN Signature RN Sign Out 07/25/19 14:38:00 [...] Modified By: ROBY MORROW RN 07/25/19 14:38:36 [facility] IntraOp Sign Out Audit 07/25/19 14:38:36 Fire Prevention Bureau Captain: ALBINO Modifier: WASSONSY <+> 1 OUTCOME STATEMENT: Absence [...] Sponge and Sharps Counts Correct/Documented <+> 1 Paetl Patient Recovery Concerns Reviewed with Anesthesia Provider, Surgeon and RN <+> 1 Patel Patient Management Concerns Reviewed with Anesthesia Provider, Surgeon and RN <+> 1 Safety Checklist Elements Complete? <+> 1 RN Sign Out Signature <+> 1 RN Sign Out Signature Date/Time <+> 1 OUTCOME STATEMENT: Intraoperative care is consistent with measures to prevent infection [facility] IntraOp Skin Prep Entry 1 Procedure [...] Modified By: Kota Napoles RN 07/25/19 12:28:55 [facility] IntraOp Skin Prep Audit 07/25/19 12:28:55 Fire Prevention Bureau Captain: ALBINO Modifier: ALBINO 1 <+> Prep Agents 1 <+> Methods 1 <*> Procedure Lumbar Fusion Posterior 3 Level, Intrathecal Pain Pump Replace/Revise 1 <+> Prep by 1 <+> Integumentary Assessment [facility] IntraOp Surgical Procedures Entry 1 Entry 2 [...] Class I - Clean I - Clean Last Modified By: ROBY MORROW, ROBY BLACKBURN, RN 07/25/19 14:27:32 07/25/19 14:27:32 [facility] IntraOp Surgical Procedures Audit 07/25/19 14:27:32 Fire Prevention Bureau Captain: WASSONSY Modifier: WASSONSY 1 <*> Procedure Lumbar Fusion Posterior 3 Level 1 <*> Stop 07/25/19 14:07:00 2 <*> Procedure Intrathecal Pain Pump Replace/Revise 2 <*> Stop 07/25/19 14:07:00 07/25/19 14:09:33 Fire Prevention Bureau Captain: WASSONSY Modifier: WASSONSY <+> 1 Stop <+> 2 Stop 07/25/19 13:38:04 Fire Prevention Bureau Captain: WASSONSY Modifier: WASSONSY 1 <*> Procedure Lumbar Fusion Posterior 3 Level 1 <*> Additional Procedure Description (L3 TO S1 PLIF, ILIAC BOLTS USING AIRO, PAIN PUMP REMOVAL WITH SCREW AUGMENTATION 07/25/19 13:34:19 Fire Prevention Bureau Captain: WASSONSY Modifier: WASSONSY 1 <*> Procedure Lumbar Fusion Posterior 3 Level 1 <*> Additional Procedure Description (L3 TO S1 PLIF, ILIAC BOLTS USING AIRO, PAIN PUMP REMOVAL) 07/25/19 13:20:30 Fire Prevention Bureau Captain: [email or web address] Modifier: WASSONSY 1 <*> Procedure Lumbar Fusion Posterior 3 Level 1 <*> Additional Procedure Description (L3 TO S1 PLIF, POSS ILIAC BOLTS USING AIRO, PAIN PUMP REMOVAL) [facility] IntraOp Temp Regulation Devices Entry 1 Temp Regulation Temperature Warm blankets, Forced Regulation Device Air Warming device Temperature 88429 Regulation Device Serial/Unit Number Temperature Upper body Regulation Site Temperature Device 43 C Setting Temperature COMBRADHA, DAT P, ELOCUTION TEACHER Regulation Device Applied by Last Modified By: Kota Napoles RN 07/25/19 12:44:48 [facility] IntraOP Time Out Entry 1 Procedure [...] Modified By: Kota Napoles RN 07/25/19 12:12:18 [facility] IntraOp X-Ray and Images Entry 1 X-Ray/Imaging Type Other Fluoroscopy Type Other Site OP SITE Structural Steel Ironworker Name GREG BARRAZA X-Ray and Imaging [facility]IN[facility] AIRO Comment INTRAOPERATIVE CT SCANNER Last Modified By: Kota Napoles RN 07/25/19 12:15:24 Case Comments <None> Finalized By: RAMYA YING Document Signatures Signed By: ROBY MORROW RN 07/25/19 14:38 RAMYA YING 07/26/19 10:29 Electronically signed by [facility] Conversion Powder Loader Cerner at 06/02/2022 1:50 PM CDT documented in this encounter Plan of Treatment Not on file documented as of this encounter Visit Diagnoses Not on filedocumented in this encounter
--- OUTSIDE RECORDS SUMMARY | 2024-09-13 15:42 | XMS_ITS | Encounter Summary ---
Author Organization [employer] ([place], [place], [place], [place]) Address [address] [place] [address] Care Team Providers Care Poultry Hatchery Man Name Role Phone Unavailable Primary Care Provider Unavailabl e Encounter Details Date Type Department Care Team (Late st Contact Info) Description 07/25/2019 Transcribed Document [facility] [place] Family Medicine [address] [place] [address] ProviderIrasema MD [address] [place] [address] Social History Tobacco Use Types Packs/Day Years [...] RN Intervention Information: fentaNYL Performed by Ml Wilburn RN on 07/25/2019 15:20:00 EDT fentaNYL,25mcg IV [...]
--- OUTSIDE RECORDS SUMMARY | 2024-09-13 15:42 | XMS_ITS | Referral Summary ---
Author Organization [employer] ([place], [place], [place], [place]) Address [address] [place] [address] Care Team Providers Care Software Configuration Engineer Name Role Phone Unavailable Primary Care [...]
--- OUTSIDE RECORDS SUMMARY | 2024-09-13 15:42 | XMS_ITS | Encounter Summary ---
Author Organization [employer] ([place], [place], [place], [place]) Address [address] [place] [address] Care Team Providers Care Senior Gamemaster Name Role Phone Unavailable Primary Care Provider Unavailabl e Encounter Details Date Type Department Care Team (Late st Contact Info) Description 07/27/2019 Transcribed Document [facility] [place] [address] [place] [address] ProviderIrasema MD [address] [place] [address] Social History Tobacco Use Types [...] Historical ProviderMD - 07/27/2019 4:34 PM CDT On Going Discharge Planning Entered On: 07/27/2019 16:34 EDT Performed On: 07/27/2019 16:34 EDT by PERFECTO DONALDSON RN-Batch BlenderFuel Technician Progress Note Discharge Arrangements : Patient Post-Acute [...] with D/C Plan? : Yes PERFECTO DONALDSON RN-Batch Blender - 07/27/2019 16:34 EDT Electronically signed by Levy [facility] Conversion Supervisor Offset Plate Preparation Cerner at 06/02/2022 1:43 PM CDT documented in this encounter Plan of Treatment Not on file documented as of this encounter Visit Diagnoses Not on filedocumented in this encounter
--- OUTSIDE RECORDS SUMMARY | 2024-09-13 15:42 | XMS_ITS | Encounter Summary ---
Author Organization [employer] ([place], [place], [place], [place]) Address [address] [place] [address] Care Team Providers Care Construction Craft Laborer Name Role Phone Unavailable Primary Care Provider Unavailabl e Encounter Details Date Type Department Care Team (Late st Contact Info) Description 07/27/2019 Transcribed Document [facility] [place] Family Medicine [facility] [place] [address] ProviderIrasema MD [address] [place] [address] Social History Tobacco Use Types [...] Irasema ProviderMD - 07/27/2019 3:12 PM CDT [facility] [place] [address] GUILLERMINA HINOJOSA :1940 Visit Time:07/25/2019 Your Visit Summary Your Care Team Admitting Physician - GRETA SOTOMAYOR MD-YOLI Attending Physician - GRETA SOTOMAYOR MD-U Primary Care Physician - ELISEO VALENCIA MD-[facility] Referring Physician - [facility], NOT LISTED Your Diagnosis Lumbar radiculopathy, Radiculopathy, [...] Equipment for Home Use: [facility]: Discharge Activity: Discharge Activity: No heavy lifting over 10 lbs Diet: Discharge Diet: Resume usual diet as tolerated Follow-Up Appointments Follow Up with GRETA SOTOMAYOR When 08/27/2019 01:45 PM EDT Comments with x rays at [facility] at 1:45 PM prior to appointment at 2:30 PM Where: [address] [place] [address]- Business (1) Follow Up with GRETA SOTOMAYOR When 08/06/2019 02:00 PM EDT Comments staple removal Where: [address] [place] [address]- Business (1) Medications What How Much [...] these instructions at home: Medicines ??? Take lpsc-qil-binmyjt and prescription medicines only as told by [...] cannot use soap and water, use hand blood splatter analyst. ? Change your bandage as told by [...] your pee (urine) pale yellow. ? Take sjmf-njf-oiyjbsj or prescription medicines. ? Eat foods that [...] 05/27/2011 Document Revised: 05/17/2017 Document Reviewed: 05/17/2017 [employer] Interactive Patient Education ?? 2020 Your Office Agent. acetaminophen and oxycodone (a SEET a MIN [...] may report side effects to FDA at 0-362-LEP-6833. What other drugs will affect acetaminophen and [...] affect acetaminophen and oxycodone, including prescription and ouyc-zhz-sgpcety medicines, vitamins, and herbal products. Not all [...] to ensure that the information provided by [employer]. ('[employer]') is accurate, up-to-date, and complete, but no guarantee is made to that effect. Drug information contained herein may be time sensitive. [employer] information has been compiled for use by healthcare practitioners and consumers in the [place] and therefore [employer] does not warrant that uses outside of the [place] are appropriate, unless specifically indicated otherwise. [employer] drug information does not endorse drugs, diagnose patients or recommend therapy. [employer] drug information is an informational resource designed [...] effective or appropriate for any given patient. [employer] does not assume any responsibility for any aspect of healthcare administered with the aid of information [employer] provides. The information contained herein is not intended to cover all possible uses, directions, precautions, warnings, drug interactions, allergic reactions, or adverse effects. If you have questions about the drugs you are taking, check with your doctor, nurse or pharmacist. Copyright 5204-0182 [employer]. Version: .. Revision Date: 03/07/2019. cyclobenzaprine (paresh [...] may report side effects to FDA at 2-063-HFC-6779. What other drugs will affect cyclobenzaprine? Using [...] drugs may affect cyclobenzaprine, including prescription and ukog-uad-apylaib medicines, vitamins, and herbal products. Not all [...] to ensure that the information provided by [employer]. ('[employer]') is accurate, up-to-date, and complete, but no guarantee is made to that effect. Drug information contained herein may be time sensitive. [employer] information has been compiled for use by healthcare practitioners and consumers in the [place] and therefore [employer] does not warrant that uses outside of the [place] are appropriate, unless specifically indicated otherwise. [employer] drug information does not endorse drugs, diagnose patients or recommend therapy. [employer] drug information is an informational resource designed [...] effective or appropriate for any given patient. [employer] does not assume any responsibility for any aspect of healthcare administered with the aid of information [employer] provides. The information contained herein is not intended to cover all possible uses, directions, precautions, warnings, drug interactions, allergic reactions, or adverse effects. If you have questions about the drugs you are taking, check with your doctor, nurse or pharmacist. Copyright 0980-6394 [employer]. Version: 5.01. Revision Date: 11/09/2017. Emergency Awareness [...] Assistance with quitting is available by contacting 2-474-ZRPNNOW. This is a free resource providing counseling, [...] range between ( 0.0 and 7.0 ) [place] #: 0.64 K/uL -- Normal range between ( 0.16 and 1.00 ) Eos #: 0.19 x10(3)/uL -- Normal range between ( 0.00 and 0.80 ) [place] %: 5.1 % -- Normal range between [...] ) Urine Bilirubin Dipstick: Negative Urine Specific [place]: 1.018 -- Normal range between ( 1.005 [...] was given the opportunity to ask questions. Patient/Float Tender Name: Patient/Float Tender Signature: Relationship to Patient: Clinician/Hospital Float Tender Signature: Date: Electronically signed by Levy, [facility] Conversion Cordwood Cutter Best at 06/02/2022 1:50 PM CDT documented in this encounter Plan of Treatment Not on file documented as of this encounter Visit Diagnoses Not on filedocumented in this encounter
--- OUTSIDE RECORDS SUMMARY | 2024-09-13 15:42 | XMS_ITS | Encounter Summary ---
Author Organization [employer] ([place], [place], [place], [place]) Address [address] [place] [address] Care Team Providers Care Economic Consultant Name Role Phone Unavailable Primary Care Provider Unavailabl e Encounter Details Date Type Department Care Team (Late st Contact Info) Description 07/25/2019 Transcribed Document [facility] [place] Family Medicine [address] [place] [address] ProviderIrasema MD [address] [place] [address] Social History Tobacco Use Types [...] Historical ProviderMD - 07/25/2019 12:07 PM CDT [facility] Main OR Preop Summary Primary Physician: GRETA SOTOMAYOR MD-SNU Finalized Date/Time: 07/25/19 14:37:09 Pt. Name: GUILLERMINA PEARCE/Sex: 1940 Female Med Rec #: [id number] Physician: GRETA SOTOMAYOR MD-SNU Financial #: [id number] Pt. Type: I Room/Bed: ASA/3 Admit/Disch: 07/25/19 06:54:00 - Institution: [facility] PreOp Case Times Entry 1 In Preop 07/25/19 09:09:00 Ready for Holding n/a Room Patient Ready for 07/25/19 10:50:00 Surgery Patient Out of Preop 07/25/19 11:25:00 Patient Out of n/a Holding Room Last Modified By: Cindy Arevalo RN 07/25/19 14:37:08 [facility] PreOp Case Times Audit 07/25/19 14:37:08 Manager Dairy: [id number] Modifier: CINDRIM <+> 1 Patient Out of Preop Finalized By: Cindy Arevalo RN Document Signatures Signed By: Cindy Arevalo RN 07/25/19 14:37 Electronically signed by Levy [facility] Conversion Fiber Picker Cerner at 06/02/2022 2:00 PM CDT documented in this encounter Plan of Treatment Not on file documented as of this encounter Visit Diagnoses Not on filedocumented in this encounter
--- OUTSIDE RECORDS SUMMARY | 2024-09-13 15:42 | XMS_ITS | Encounter Summary ---
Author Organization [employer] ([place], [place], [place], [place]) Address [address] [place] [address] Care Team Providers Care Supervisor Electric Motor Testing Name Role Phone Unavailable Primary Care Provider Unavailabl e Encounter Details Date Type Department Care Team (Late st Contact Info) Description 06/25/2019 Transcribed Document [facility] [place] [address] [place] [address] ProviderIrasema MD [address] [place] [address] Social History Tobacco Use Types [...] Irasema ProviderMD - 06/25/2019 2:31 PM CDT [facility] [address] GUILLERMINA HINOJOSA :1940 Visit Time:06/25/2019 Your Visit Summary Your Care Team Admitting Physician - GRETA SOTOMAYOR MD-SNU Attending Physician - GRETA SOTOMAYOR MD-SNU Primary Care Physician - ELISEO VALENCIA MD-[facility] Referring Physician - GRETA SOTOMAYOR MD-SNU Your Diagnosis Chronic pain syndrome, Chronic pain syndrome Discharge Vitals Heart Rate (Monitored) 78 Respiratory Rate 20 Blood Pressure 97/57 What to do next Follow-Up Appointments Follow Up with GRETA SOTOMAYRO MD-SNU When Within 2 to 3 days Where: [address] [facility] [address] [place] [address]- Medications What How Much When Instructions Next [...] including vitamins, herbs, eye drops, creams, and ibnr-qwp-apflixx medicines. ??? Previous problems you or members [...] 09/23/2004 Document Revised: 06/15/2016 Document Reviewed: 11/13/2015 [employer] Interactive Patient Education ?? 2019 [employer] Spinal Headache A spinal headache is [...] Follow these instructions at home: ??? Take pqnt-xrg-fbacdbv and prescription medicines only as told by [...] 07/23/2002 Document Revised: 03/15/2018 Document Reviewed: 03/15/2018 [employer] Interactive Patient Education ?? 2019 [employer] Cerebrospinal Fluid Leak, Adult Cerebrospinal fluid [...] with your health care providers. ??? Take gusc-fmq-hgfebdm and prescription medicines only as told by [...] 06/11/2016 Document Revised: 08/20/2016 Document Reviewed: 06/11/2016 [employer] Interactive Patient Education ?? 2019 [employer] Lumbar Puncture, Care After This sheet [...] a bad smell. General instructions ??? Take nfwq-yrs-igslgah and prescription medicines only as told by [...] 02/05/2014 Document Revised: 03/16/2017 Document Reviewed: 03/16/2017 [employer] Interactive Patient Education ?? 2019 [employer]. Emergency Awareness and Preventative Care STROKE is [...] Assistance with quitting is available by contacting 2-689-GVLJ-NOW. This is a free resource providing counseling, [...] was given the opportunity to ask questions. Patient/Candle Molder Name: Patient/Candle Molder Signature: Relationship to Patient: Clinician/Hospital Candle Molder Signature: Date: documented in this encounter Plan of Treatment Not on file documented as of this encounter Visit Diagnoses Not on filedocumented in this encounter
--- OUTSIDE RECORDS SUMMARY | 2024-09-13 15:42 | XMS_ITS | Encounter Summary ---
Author Organization [employer] ([place], [place], [place], [place]) Address [address] [place] [address] Care Team Providers Care Ice Cream Man Name Role Phone Unavailable Primary Care Provider Unavailabl e Encounter Details Date Type Department Care Team (Late st Contact Info) Description 07/25/2019 Transcribed Document [facility] [place] [address] [place] [address] ProviderIrasema MD [address] [place] [address] Social History Tobacco Use Types Packs/Day Years [...] Conversion Note - Historical ProviderMD - 07/25/2019 4:21 PM CDT Meds to Bed Enrollment Entered On: 07/26/2019 9:14 EDT Performed On: 07/25/2019 16:21 EDT by Isaiah Aguilar, RAILWAYS ASSISTANT LEAD Meds to Bed Enrollment Patient Enrollment Decision: : No/do not enroll in meds to bed program Reason for Declining Meds to Bed Program: : Other: NA Isaiah Aguilar RAILWAYS ASSISTANT LEAD - 07/26/2019 9:14 EDT documented in this encounter Plan of Treatment Not on file documented as of this encounter Visit Diagnoses Not on filedocumented in this encounter
--- OUTSIDE RECORDS SUMMARY | 2024-09-13 15:42 | XMS_ITS | Clinical Summary ---
Author Organization [employer] ([place], [place], [place], [place]) Address [address] [place] [address] Care Team Providers Care Top Dyeing Machine Tender Name Role Phone Unavailable Primary Care Provider [...]
--- OUTSIDE RECORDS SUMMARY | 2024-09-13 15:42 | XMS_ITS | Clinical Summary ---
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 Shilpa Mora MA Spondylolisthe sis, lumbar region LUMBOSACRAL RADICULOPATHY 1664838 (SNOMED CT) Active 05/25 Salvador Dang MA Lumbosacral radiculopathy FOLLOW-UP EXAMINATION, AFTER SURGERY NEC Z09 (ICD-10-C M) Active 02/28 Randy Spicer MD Encounter for follow-up examination after completed treatment for conditions other than malignant neoplasm DEGENERATIVE DISC DISEASE, LUMBOSACRAL SPINE W/RADICULOPATHY 0899528 (SNOMED CT) Active 10/24 Isaiah Sam MD Lumbosacral radiculopathy Medications Medication Instructions Start Date Stop Date Generic Name [facility] Provider MEDROL 4 MG TBPK as directed 09/28 METHYLPREDNISOLONE [id number] Randy Spicer MD ZANAFLEX CAPSULE Non-[place] 03/14 TIZANIDINE HCL CAPS [id number] Shilpa Mora MA RANEXA TABLET EXTENDED RELEASE 12 HOUR Non-[place] 03/14 RANOLAZINE [id number] Shilpa Mora MA MIRAPEX 1 MG ORAL TABLET Non-[place] 03/14 PRAMIPEXOLE DIHYDROCHLORIDE [id number] Shilpa Mora MA PROTONIX 40 MG PACK Non-[place] 03/14 PANTOPRAZOLE SODIUM [id number] Shilpa Mora MA ISOSORBIDE MONONITRATE TABS -03/14 ISOSORBIDE MONONITRATE TABS 17470379037 Shilpa Mora MA HYDROCHLOROTHIAZIDE 25 MG TABS -Graf 03/14 HYDROCHLOROTHIAZIDE 48525348752 Shilpa Mora MA NEURONTIN 600 MG TABS -03/14 GABAPENTIN 20694700107 Shilpa Mora MA LEXAPRO 10 MG TABS -Graf 03/14 ESCITALOPRAM OXALATE 45979264214 Shilpa Mora MA BENTYL 20 MG ORAL TABLET -Graf 03/14 DICYCLOMINE HCL 59558702316 Shilpa Mora MA PLAVIX 75 MG TABS -Graf 03/14 CLOPIDOGREL BISULFATE 24828068950 Shilpa Mora MA LIPITOR 40 MG TABS -03/14 ATORVASTATIN CALCIUM 37694305972 Shilpa Mora MA PEPCID 20 MG TABS -Graf 10/24 FAMOTIDINE 58941214795 Shilpa Mora MA LEXAPRO 10 MG TABS -Graf 10/24 ESCITALOPRAM OXALATE 09267553495 Shilpa Mora MA PROTONIX 40 MG PACK -Graf 10/24 PANTOPRAZOLE SODIUM 76742062971 Shilpa Mroa MA NITROSTAT 0.4 MG SUBL Graf 10/24 NITROGLYCERIN 03071137305 Shilpa Mora MA BENTYL 20 MG ORAL TABLET -10/24 DICYCLOMINE HCL 82482160095 Shilpa Mora MA MIRAPEX 1.5 MG ORAL TABLET -Graf 10/24 PRAMIPEXOLE DIHYDROCHLORIDE 54183306349 Shilpa Mora MA PLAVIX 75 MG TABS -Graf 10/24 CLOPIDOGREL BISULFATE 92712421128 Shilpa Mora MA ZOCOR 20 MG TABS -Graf 10/24 SIMVASTATIN [id number] Shilpa Mora MA COREG 3.125 MG TABS Non-Graf 10/24 CARVEDILOL 37621833232 Shilpa Mora MA ULTRAM 50 MG ORAL TABLET 1 q 6 - 8 prn 10/24 TRAMADOL HCL 90220936221 Shilpa Mora MA FLEXERIL 10 MG TABS 1 qhs, and 1/2 -1 q 8 prn during the day, max of 3 a day 10/24 CYCLOBENZAPRINE HCL 73778819537 Shilpa Mora MA PERCOCET 5-325 MG TABS 1-2 q 4-6 hrs. prn pain 10/27 OXYCODONE-ACETAMINOP HEN 49199855178 Shilpa Mora MA MEDROL 4 MG TBPK as directed 10/27 METHYLPREDNISOLONE 52900641516 Shilpa Mora MA NORCO 7.5-325 MG ORAL TABLET 1 QID 11/13 HYDROCODONE-ACETAMIN OPHEN 37471082393 Shilpa Mora MA VICODIN 5-300 MG ORAL TABLET 1 QID 02/14 HYDROCODONE-ACETAMIN OPHEN 19052843675 Shilpa Mora MA VICODIN 5-300 MG ORAL TABLET 1 QID 02/14 HYDROCODONE-ACETAMIN OPHEN 01877137715 Randy Spicer MD NORCO 7.5-325 MG ORAL TABLET 1 QID 11/13 HYDROCODONE-ACETAMIN OPHEN 61046994118 Randy Spicer MD MEDROL 4 MG TBPK as directed 10/27 METHYLPREDNISOLONE 65047033859 Randy Spicer MD PERCOCET 5-325 MG TABS 1-2 q 4-6 hrs. prn pain 10/27 OXYCODONE-ACETAMINOP HEN 92737126899 Randy Spicer MD PEPCID 20 MG TABS Non-Graf 10/24 FAMOTIDINE 27124921954 Isaiah Sam MD LEXAPRO 10 MG TABS Non-Graf 10/24 ESCITALOPRAM OXALATE 22816657147 Isaiah Sam MD PROTONIX 40 MG PACK -Graf 10/24 PANTOPRAZOLE SODIUM [id number] Isaiah Sam MD NITROSTAT 0.4 MG SUBL -Graf 10/24 NITROGLYCERIN 58077841064 Isaiah Sam MD BENTYL 20 MG ORAL TABLET -Graf 10/24 DICYCLOMINE HCL [id number] Isaiah Sam MD MIRAPEX 1.5 MG ORAL TABLET -Graf 10/24 PRAMIPEXOLE DIHYDROCHLORIDE [id number] Isaiah Sam MD PLAVIX 75 MG TABS -Graf 10/24 CLOPIDOGREL BISULFATE [id number] Isaiah Sam MD ZOCOR 20 MG TABS -Graf 10/24 SIMVASTATIN [id number] Isaiah Sam MD COREG 3.125 MG TABS -Graf 10/24 CARVEDILOL 45789222597 Isaiah Sam MD ULTRAM 50 MG ORAL TABLET 1 q 6 - 8 prn 10/24 TRAMADOL HCL 88003983764 Isaiah Sam MD FLEXERIL 10 MG TABS 1 qhs, and 1/2 -1 q 8 prn during the day, max of 3 a day 10/24 CYCLOBENZAPRINE HCL [id number] Isaiah Sam MD Medications Administered No information [...] No flu shot received; allergy etc. 06/09 CPT-22490 EMG w/ NCS, Complete, 1 Extremity CPT-200 18 3897/04/11 CPT-71565 Nerve Conduction [place] dy (5-6 studies) CPT-01790 [id number] Medications Documented G8427 Medication Reconcili ation Completed CPT-G8427 G8730 Pain Assessment posi tive with follow up plan G8417 BMI above normal, f/u plan documented 201 07/15/28 1036F No tobacco use currently 201 07/15/28 4040F Pneumococcal vaccine received G8483 No flu shot received; allergy etc. 03/14 1123F ACP/POA documented 9 [facility]-[id number] Pneumonia Vaccine Previously Received 01/03/28 G8427 Medication [...]
--- OUTSIDE RECORDS SUMMARY | 2024-09-13 15:42 | XMS_ITS | Encounter Summary ---
Author Organization [employer] ([place], [place], [place], [place]) Address [address] [place] [address] Care Team Providers Care Magazine Grinder Loader Name Role Phone Unavailable Primary Care Provider Unavailabl e Encounter Details Date Type Department Care Team (Late st Contact Info) Description 07/27/2019 Transcribed Document [facility] [place] [address] [place] [address] ProviderIrasema MD [address] [place], [place] [id number] Social History Tobacco Use Types Packs/Day Years [...] N/A Warfarin Discharge Ins : N/A SHAHID KEY, RN - 07/27/2019 11:33 EDT documented in this encounter Plan of Treatment Not on file documented as of this encounter Visit Diagnoses Not on filedocumented in this encounter
--- OUTSIDE RECORDS SUMMARY | 2024-09-13 15:42 | XMS_ITS | Encounter Summary ---
Author Organization [employer] ([place], [place], [place], [place]) Address [address] [place] [address] Care Team Providers Care Advertising Editor Name Role Phone Unavailable Primary Care Provider Unavailabl e Encounter Details Date Type Department Care Team (Late st Contact Info) Description 07/27/[address] [facility] - [address] [facility] [address] [place] [address] Sebastián Barboza MD [address] [place] [address] Social History Tobacco Use Types [...] (JUL 25 08:24) Mon HR 86 (JUL 26 01:42) 85 (JUL 25 21:47) 93 (JUL 25 10:35) Resp Rate 16 (JUL 26:42) 16 (JUL 25 18:00) 16 (JUL 25 18:00) SBP 116 (JUL 26:42) 105 (JUL 25:47) H 141 (JUL 25 14:21) DBP L 41 (JUL 26:42) L 41 (JUL 26:42) L 59 (JUL 25 14:) MAP 73 (JUL 26:42) 57 (JUL 25 21:47) 113 (JUL 25 14:21) SpO2 L 90 (JUL 25 18:30) L 90 (JUL 25 18:30) 97 (JUL 25 14:21) AAOx3. Hard of hearing. Incision clean, dry, and intact. GIAN with 115cc warehouse shift supervisor, serous drainage in bulb. Ambulated with [...]
--- OUTSIDE RECORDS SUMMARY | 2024-09-13 15:42 | XMS_ITS | Encounter Summary ---
Author Organization [employer] ([place], [place], [place], [place]) Address [address] [place] [address] Care Team Providers Care Behavioral Health Director Name Role Phone Unavailable Primary Care Provider Unavailabl e Encounter Details Date Type Department Care Team (Late st Contact Info) Description 06/25/2019 Transcribed Document [facility] [place] Family Medicine [address] [place] [address] ProviderIrasema MD [address] [place] [address] Social History Tobacco Use Types [...] including vitamins, herbs, eye drops, creams, and rjcy-zoa-qnmswfu medicines. ??? Previous problems you or members [...] 09/23/2004 Document Revised: 06/15/2016 Document Reviewed: 11/13/2015 [employer] Interactive Patient Education ? 2019 [employer]. Spinal Headache A spinal headache is a [...] Follow these instructions at home: ??? Take gysa-tax-stlvobe and prescription medicines only as told by [...] 07/23/2002 Document Revised: 03/15/2018 Document Reviewed: 03/15/2018 Else[employer] Interactive Patient Education ? 2019 [employer] Cerebrospinal Fluid Leak, Adult Cerebrospinal fluid [...] with your health care providers. ??? Take yman-kth-qxenuyr and prescription medicines only as told by [...] 06/11/2016 Document Revised: 08/20/2016 Document Reviewed: 06/11/2016 [employer] Interactive Patient Education ? 2019 [employer] Lumbar Puncture, Care After This sheet [...] a bad smell. General instructions ??? Take rgqz-rlu-bvhqvwt and prescription medicines only as told by [...] 02/05/2014 Document Revised: 03/16/2017 Document Reviewed: 03/16/2017 Else[employer] Interactive Patient Education ? 2019 [employer] documented in this encounter Plan of Treatment Not on file documented as of this encounter Visit Diagnoses Not on filedocumented in this encounter
--- OUTSIDE RECORDS SUMMARY | 2024-09-13 15:42 | XMS_ITS | Encounter Summary ---
Author Organization [employer] ([place], [place], [place], [place]) Address [address] [place] [address] Care Team Providers Care Plywood Scarfer Tender Name Role Phone Unavailable Primary Care Provider Unavailabl e Encounter Details Date Type Department Care Team (Late st Contact Info) Description 07/25/2019 Transcribed Document [facility] [place] [address] [place] [address] ProviderIrasema MD [address] [place] [address] Social History Tobacco Use Types [...] Historical ProviderMD - 07/25/2019 12:07 PM CDT [facility] Main OR PACU Summary Primary Physician: GRETA SOTOMAYOR MD-SNMarco Finalized Date/Time: 07/25/19 17:09:16 Pt. Name: GUILLERMINA PEARCE/Sex: 1940 Female Med Rec #: [id number] Physician: GRETA SOTOMAYOR MD-SN Financial #: [id number] Pt. Type: I Room/Bed: 652/1 Admit/Disch: 07/25/19 06:54:00 - Institution: [facility] Main OR PACU I Case Times Entry 1 In PACU I 07/25/19 14:40:00 Ready for PACU 07/25/19 15:38:00 Discharge Discharge from PACU 07/25/19 16:05:00 I Last Modified By: Ml Wilburn RN 07/25/19 17:08:34 [facility] Main OR PACU I Case Times Audit 07/25/19 17:08:34 Business Planning Manager: [email or web address] Modifier: [email or web address] <+> 1 Discharge from PACU I Finalized By: Ml Wilburn RN Document Signatures Signed By: Ml Wilburn RN 07/25/19 17:09 Electronically signed by Levy [facility] Conversion Nurse Orthopedic Cerner at 06/02/2022 1:47 PM CDT documented in this encounter Plan of Treatment Not on file documented as of this encounter Visit Diagnoses Not on filedocumented in this encounter
--- OUTSIDE RECORDS SUMMARY | 2024-09-13 15:42 | XMS_ITS | Encounter Summary ---
Author Organization [employer] ([place], [place], [place], [place]) Address [address] [place] [address] Care Team Providers Care Child Care Lead Teacher Name Role Phone Unavailable Primary Care Provider Unavailabl e Encounter Details Date Type Department Care Team (Late st Contact Info) Description 07/25/2019 Transcribed Document [facility] [place] [facility] [place] [address] ProviderIrasema MD [address], [place] [id number] Social History Tobacco Use Types Packs/Day Years [...] Spiritual consult Ministry Provided to : Patient Advent Preference : Buddhist Melo Newberry Chaplain-Non Cert - 07/26/2019 5:35 EDT Spiritual Assessment Spiritual Assessment Comment/Summary Points : Spiritual care and brief supportive visit provided to patient. Spirital Assessment Comment/Summary Report : SPIRITUAL ASSESSMENT COMMENT/SUMMARY No qualifying data available. Melo Newberry Chaplain-Non Cert - 07/26/2019 5:35 EDT Interventions Emotional Support : Empathic/Engaged listening, Hope strengths identified, Hope struggles identified Spiritual and Advent : Spiritual/Advent support provided Melo Newberry Chaplain-Non Cert - 07/26/2019 5:35 EDT Electronically signed by Levy, [facility] Conversion Galley Hand Cerner at 06/02/2022 1:54 PM CDT documented in this encounter Plan of Treatment Not on file documented as of this encounter Visit Diagnoses Not on filedocumented in this encounter
--- OUTSIDE RECORDS SUMMARY | 2024-09-13 15:42 | XMS_ITS | Encounter Summary ---
Author Organization [employer] ([place], [place], [place], [place]) Address [address] [place] [address] Care Team Providers Care Sap Hana Developer Name Role Phone Unavailable Primary Care Provider Unavailabl e Encounter Details Date Type Department Care Team (Late st Contact Info) Description 07/19/2019 Transcribed Document [facility] [place] Family Medicine [address] [place] [address] ProviderIrasema MD [address], [place] [id number] Social History Tobacco Use Types Packs/Day Years [...] ANN CALVERT RN - 07/19/2019 14:21 EDT Electronically signed by Levy [facility] Conversion Consulting Software Engineer Cerner at 06/02/2022 1:44 PM CDT documented in this encounter Plan of Treatment Not on file documented as of this encounter Visit Diagnoses Not on filedocumented in this encounter
--- OUTSIDE RECORDS SUMMARY | 2024-09-13 15:42 | XMS_ITS | Encounter Summary ---
Author Organization [employer] ([place], [place], [place], [place]) Address [address] [place] [address] Care Team Providers Care Knitting Machine Mechanic Name Role Phone Unavailable Primary Care Provider Unavailabl e Encounter Details Date Type Department Care Team (Late st Contact Info) Description 07/27/2019 Transcribed Document [facility] [place] [facility] [place] [address] ProviderIrasema MD [address] [place] [address] Social History Tobacco Use Types [...] Irasema ProviderMD - 07/27/2019 2:56 PM CDT [facility] [place] [address] GUILLERMINA HINOJOSA :1940 Visit Time:07/25/2019 Your Visit Summary Your Care Team Admitting Physician - GRETA SOTOMAYOR MD-YOLI Attending Physician - GRETA SOTOMAYOR MD-U Primary Care Physician - ELISEO VALENCIA MD-[facility] Referring Physician - [facility], NOT LISTED Your Diagnosis Lumbar radiculopathy, [...] PM EDT Comments with x rays at [facility] at 1:45 PM prior to appointment at 2:30 PM Where: [address] [place] [address]- Business (1) Follow Up with GRETA SOTOMAYOR When 08/06/2019 02:00 PM EDT Comments staple removal Where: [address] [place] [address]- Business (1) Medications What How Much [...] needed losartan 25 Milligram(s) Oral Every Day 13 am metoprolol (Metoprolol Succinate ER) 25 Milligram(s) [...] bedtime spironolactone 25 Milligram(s) Oral Every Day 13 am Take your medications faithfully. Do NOT [...] these instructions at home: Medicines ??? Take hkfd-uuy-netaaxr and prescription medicines only as told by [...] cannot use soap and water, use hand green chain marker. ? Change your bandage as told by [...] your pee (urine) pale yellow. ? Take yknw-ucf-cvbjmsl or prescription medicines. ? Eat foods that [...] 05/27/2011 Document Revised: 05/17/2017 Document Reviewed: 05/17/2017 [employer] Patient Education ?? 2020 hopTo. acetaminophen and oxycodone (a SEET a MIN [...] may report side effects to FDA at 8-357-SLR-7461. What other drugs will affect acetaminophen and [...] affect acetaminophen and oxycodone, including prescription and jabx-nct-efukleq medicines, vitamins, and herbal products. Not all [...] to ensure that the information provided by [employer]. ('[employer]') is accurate, up-to-date, and complete, but no guarantee is made to that effect. Drug information contained herein may be time sensitive. [employer] information has been compiled for use by healthcare practitioners and consumers in the [place] and therefore [employer] does not warrant that uses outside of the [place] are appropriate, unless specifically indicated otherwise. [employer] drug information does not endorse drugs, diagnose patients or recommend therapy. [employer] drug information is an informational resource designed [...] effective or appropriate for any given patient. [employer] does not assume any responsibility for any aspect of healthcare administered with the aid of information [employer] provides. The information contained herein is not intended to cover all possible uses, directions, precautions, warnings, drug interactions, allergic reactions, or adverse effects. If you have questions about the drugs you are taking, check with your doctor, nurse or pharmacist. Copyright 9392-6571 [employer]. Version: .. Revision Date: 03/07/2019. cyclobenzaprine (paresh bronson) Basilio, Patt Pac with Cyclobenzaprine, Fexmid What is the [...] may report side effects to FDA at 9-492-LQV-6911. What other drugs will affect cyclobenzaprine? Using [...] drugs may affect cyclobenzaprine, including prescription and gsdv-pla-goyhpyb medicines, vitamins, and herbal products. Not all [...] to ensure that the information provided by [employer]. ('[employer]') is accurate, up-to-date, and complete, but no guarantee is made to that effect. Drug information contained herein may be time sensitive. [employer] information has been compiled for use by healthcare practitioners and consumers in the [place] and therefore [employer] does not warrant that uses outside of the [place] are appropriate, unless specifically indicated otherwise. [employer] drug information does not endorse drugs, diagnose patients or recommend therapy. [employer] drug information is an informational resource designed [...] effective or appropriate for any given patient. [facility] does not assume any responsibility for any aspect of healthcare administered with the aid of information [employer] provides. The information contained herein is not intended to cover all possible uses, directions, precautions, warnings, drug interactions, allergic reactions, or adverse effects. If you have questions about the drugs you are taking, check with your doctor, nurse or pharmacist. Copyright 9787-0350 Best [employer]. Version: 5.01. Revision Date: 11/09/2017. Emergency Awareness [...] Assistance with quitting is available by contacting 0-589-KYYN-NOW. This is a free resource providing counseling, [...] range between ( 0.0 and 7.0 ) Bingham #: 0.64 K/uL -- Normal range between ( 0.16 and 1.00 ) Eos #: 0.19 x10(3)/uL -- Normal range between ( 0.00 and 0.80 ) Bingham %: 5.1 % -- Normal range between [...] ) Urine Bilirubin Dipstick: Negative Urine Specific Marion: 1.018 -- Normal range between ( 1.005 [...] was given the opportunity to ask questions. Patient/Digester Cook Name: Patient/Digester Cook Signature: Relationship to Patient: Clinician/Hospital Digester Cook Signature: Date: documented in this encounter Plan of Treatment Not on file documented as of this encounter Visit Diagnoses Not on filedocumented in this encounter
--- OUTSIDE RECORDS SUMMARY | 2024-09-13 15:42 | XMS_ITS | Encounter Summary ---
Author Organization [employer] ([place], [place], [place], [place]) Address [address] [place] [address] Care Team Providers Care Wastewater Plant Operator Name Role Phone Unavailable Primary Care Provider Unavailabl e Encounter Details Date Type Department Care Team (Late st Contact Info) Description 07/19/2019 Transcribed Document [facility] [place] [facility] [place] [address] ProviderIrasema MD [address] [place] [address] Social History Tobacco Use Types [...] Temperature Source : Oral Temperature Mode : MariamenhMARY ANN King RN - 07/19/2019 12:59 EDT Height and Weight, Clinical Dosing Height Source : Measured Height Entry Format : [place] Height, Feet : 5 ft(Converted to: 152 cm, 60 Inch) Height, Inches : 0 Inch(Converted to: 0 ft 0 Inch, 0.00 cm) Clinical Height : 152.4 cm Weight Source : Standing scale Weight Entry Format : [place] Clinical Dosing Weight : 69.74 kg Weight, Pounds : 153 lb Weight, Ounces : 7 oz Body Surface Area (BSA) : 1.67 m2 Body Mass Index : 30 kg/m2 (HI) Grenora Body Weight : 45 kg MARY ANN [...] Directive Type : Other: general power of dump truck operator MARY ANN CALVERT RN - 07/19/2019 12:59 EDT Spiritual/Cultural Needs Any Spiritual/Cultural Needs or Requests : Yes Spiritual/Cultural Needs Comment : surgery on TueJuly 24 in at 0930 am Spiritual/Cult Concerns/Desires/Needs : Prayer Spiritual/Cultural Needs Comment : surgery on TueJuly 24 in at 0930 am MARY ANN CALVERT RN - 07/19/2019 12:59 EDT [place] Suicide Severity Rating Scale (C-SSRS) CSSRS Past [...] Ambulatory Legal Guardian : Son Support Person/Patient Manager Strategy & Account : Yes Support Person/Pt Rep Name : Patricio Angel son Support Person/Pt Rep Contact Information : [phone] Want Family/Rep/Phys Notified of Admit : No Emergency Contact #1 : Patricio angel Emergency Contact #1 Emergency Contact #1 Relationship : son Emergency Contact #2 : na Emergency Contact #2 Phone Number : laverne Emergency Contact #2 Relationship : na` Information Obtained From : Patient Primary Language : Bhutanese Preferred Communication Mode : Verbal Communication Barrier [...]
--- OUTSIDE RECORDS SUMMARY | 2024-09-13 15:42 | XMS_ITS | Encounter Summary ---
Author Organization [employer] ([place], [place], [place], [place]) Address [address] [place] [address] Care Team Providers Care Wood Cutter Name Role Phone Unavailable Primary Care Provider Unavailabl e Encounter Details Date Type Department Care Team (Late st Contact Info) Description 07/26/2019 Transcribed Document [facility] [place] [address] [place] [address] ProviderIrasema MD [address] [place] [address] Social History Tobacco Use Types [...] Conversion Note - Historical ProviderMD - 07/26/2019 4:37 PM CDT Initial Discharge Planning Entered On: 07/26/2019 16:44 EDT Performed On: 07/26/2019 16:37 EDT by YIRS RADFORD, Transformer Assembly Supervisor Initial Assessment I Previously Documented Living Environment [...] Patient's Home Caregiver Medical Durable Power of Manager Configuration Name : Patricio Angel Legal Guardian : [...] RADFORD Social Worker - 07/26/2019 16:37 EDT Electronically signed by Suze Lockett Conversion Biomedical Field Service Engineer Cerner at 06/02/2022 1:50 PM CDT documented in this encounter Plan of Treatment Not on file documented as of this encounter Visit Diagnoses Not on filedocumented in this encounter
--- OUTSIDE RECORDS SUMMARY | 2024-09-13 15:42 | XMS_ITS | Encounter Summary ---
Author Organization [employer] ([place], [place], [place], [place]) Address [address] [place] [address] Care Team Providers Care Wildlife Forensic Geneticist Name Role Phone Unavailable Primary Care Provider Unavailabl e Encounter Details Date Type Department Care Team (Late st Contact Info) Description 06/25/2019 Transcribed Document [facility] [place] [address] [place] [address] ProviderIrasema MD [address] [place] [address] Social History Tobacco Use Types [...] Conversion Note - Historical ProviderMD - 06/25/2019 11:40 AM CDT Patient: [...]
--- OUTSIDE RECORDS SUMMARY | 2024-09-13 15:42 | XMS_ITS | Encounter Summary ---
Author Organization [employer] ([place], [place], [place], [place]) Address [address] [place] [address] Care Team Providers Care Brand Advocate Name Role Phone Unavailable Primary Care Provider Unavailabl e Encounter Details Date Type Department Care Team (Late st Contact Info) Description 07/26/2019 Transcribed Document [facility] [place] [address] [place] [address] ProviderIrasema MD [address] [place] [address] Social History Tobacco Use Types [...] Insurance 1 Health Plan: MEDICARE Policy Number: [id number] Authorization Number: Insurance 2 [facility]: [facility] Policy Number: [id number] Authorization Number: Insurance Primary Name : Medicare Authorized Service Begin Date-Primary : 07/25/2019 EDT Historical Authorization Comments-Primary : Comment 1: Pt is scheduled for INPT Lumbar Fusiion Posterior 3 Level Intrathecal Pain Pump replace/revise on 07-25-2019 Medicare: NPR (SANNA MARRERO, County Administrator 07/24/2019 14:59) Addie Ricci Rn-Utilization Review - 07/26/2019 12:01 EDT Electronically signed by Levy, [facility] Conversion Continuous Improvement Lead Cerner at 06/02/2022 2:04 PM CDT documented in this encounter Plan of Treatment Not on file documented as of this encounter Visit Diagnoses Not on filedocumented in this encounter
--- OUTSIDE RECORDS SUMMARY | 2024-09-13 15:42 | XMS_ITS | Encounter Summary ---
Author Organization [employer] ([place], [place], [place], [place]) Address [address] [place] [address] Care Team Providers Care Bead Trimmer Name Role Phone Unavailable Primary Care Provider Unavailabl e Encounter Details Date Type Department Care Team (Late st Contact Info) Description 07/25/2019 Transcribed Document [facility] - [address] [facility] [address] [place] [address] Sebastián Barboza MD [address] [place] [address] Social History Tobacco Use Types [...] All Problems Skin cancer / SNOMED CT 9513720882 / Confirmed Restless legs syndrome / SNOMED CT 10859284 / Confirmed Hypertension / SNOMED CT 09173930 / Confirmed Hyperlipidemia / SNOMED CT 46964460 / Confirmed Hiatal hernia / SNOMED CT 065355827 / Confirmed H/O Hemorrhoids / SNOMED CT 951934576 / Confirmed KAKTOVIK (hard of hearing) / SNOMED CT 58724855 / Confirmed GERD - Gastro-esophageal reflux disease / SNOMED CT 4430587077 / Confirmed Shortness of breath / SNOMED CT 993155652 / Confirmed Coronary artery disease s/p MS s/p stents / SNOMED CT 2748807806 / Confirmed Congestive heart failure / SNOMED CT 94147210 / Confirmed Back pain radiates down both legs R> L / SNOMED CT 3340096331 / Confirmed AICD (automatic cardioverter/defibrillator) present St Rasheed / SNOMED CT 5643581831 / Confirmed At risk for sleep apnea / IMO 02883411 / Confirmed Arthritis / SNOMED CT 7622561 / Confirmed Angina / SNOMED CT 369104182 / Confirmed, Active Problems (16) AICD (automatic cardioverter/defibrillator) present St Rasheed Angina Arthritis At risk for sleep apnea Back pain radiates down both legs R> L Congestive heart failure Coronary artery disease s/p MS s/p stents GERD - Gastro-esophageal reflux disease H/O Hemorrhoids Hiatal hernia KAKTOVIK (hard of hearing) Hyperlipidemia Hypertension Restless legs [...] Extraocular movements are intact, glasses. HENT: Normocephalic, KAKTOVIK, paolo aids. Neck: Supple, Non-tender. Respiratory: Lungs are clear to auscultation, Respirations are non-labored. Cardiovascular: Normal rate, Regular rhythm, No murmur, No gallop, No edema, L pacemaker/defibrillator. Gastrointestinal: Soft, Non-tender. Genitourinary: No costovertebral angle tenderness. Lymphatics: No lymphadenopathy neck, axilla, groin. Musculoskeletal: painful ROM back, RLE weakness, R lower back pain pump. Integumentary: Warm, Dry, Chical. Neurologic: Alert, Oriented. Psychiatric: Cooperative, Appropriate mood [...]
--- OUTSIDE RECORDS SUMMARY | 2024-09-13 15:42 | XMS_ITS | Encounter Summary ---
Author Organization [employer] ([place], [place], [place], [place]) Address [address] [place] [address] Care Team Providers Care Family Resource Management Professor Name Role Phone Unavailable Primary Care Provider Unavailabl e Encounter Details Date Type Department Care Team (Late st Contact Info) Description 07/25/2019 Transcribed Document [facility] [place] [address] [place] [address] ProviderIrasema MD [address] [place] [address] Social History Tobacco Use Types [...]
--- OUTSIDE RECORDS SUMMARY | 2024-09-13 15:42 | XMS_ITS | Encounter Summary ---
Author Organization [employer] ([place], [place], [place], [place]) Address [address] [place] [address] Care Team Providers Care Front Desk Supervisor Name Role Phone Unavailable Primary Care Provider Unavailabl e Encounter Details Date Type Department Care Team (Late st Contact Info) Description 07/25/2019 Transcribed Document [facility] [place] [address] [place] [address] ProviderIrasema MD [address] [place] [address] Social History Tobacco Use Types [...] Ugarte STUDENT-OCCUPATIONAL THERAPIST - 07/26/2019 13:55 EDT Tire Service Technician Goals, OT Grooming LTG Grid Goal #1 [...] Ugarte STUDENT-OCCUPATIONAL THERAPIST - 07/26/2019 13:55 EDT Electronically signed by Suze Lockett Conversion Drywall Application Supervisor Cerner at 06/02/2022 1:52 PM CDT documented in this encounter Plan of Treatment Not on file documented as of this encounter Visit Diagnoses Not on filedocumented in this encounter
--- OUTSIDE RECORDS SUMMARY | 2024-09-13 15:42 | XMS_ITS | Encounter Summary ---
Author Organization [employer] ([place], [place], [place], [place]) Address [address] [place] [address] Care Team Providers Care Phototypesetting Equipment Monitor Name Role Phone Unavailable Primary Care Provider Unavailabl e Encounter Details Date Type Department Care Team (Late st Contact Info) Description 07/25/2019 Transcribed Document [facility] [place] Family Medicine [facility] [place] [address] ProviderIrasema MD [address] [place] [address] Social History Tobacco Use Types [...] Directive Type : Other: general power of real estate associate attorney Copy Advance Directive Verified/on Chart : Yes [...] Ambulatory Legal Guardian : Unaccompanied Support Person/Patient Yard Spotter : Yes Support Person/Pt Rep Name : Patricio Angel son Support Person/Pt Rep Contact Information : [phone] Want Family/Rep/Phys Notified of Admit : No Emergency Contact #1 : Patricio angel Emergency Contact #1 Emergency Contact #1 Relationship : son Emergency Contact #2 : na Emergency Contact #2 Phone Number : nan Emergency Contact #2 Relationship : na` Information Obtained From : Patient Primary Language : Georgian Preferred Communication Mode : Verbal Communication Barrier [...] Scale Risk Level : 25-45 Medium Risk Haddock Fall Interventions : Adequate lighting, Assistive devices [...] Source : Measured Height Entry Format : [place]ley Height, Feet : 5 ft(Converted to: 152 cm, 60 Inch) Height, Inches : 0 Inch(Converted to: 0 ft 0 Inch, 0.00 cm) Clinical Height : 152.4 cm Weight Source : Standing scale Weight Entry Format : [place] Clinical Dosing Weight : 69.74 kg Weight, Pounds : 153 lb Weight, Ounces : 7 oz Body Surface Area (BSA) : 1.67 m2 Body Mass Index : 30 kg/m2 (HI) Kathryn Body Weight : 45 kg Rosalva Kay [...] Rosalva Kay RN - 07/25/2019 16:29 EDT [place] Suicide Severity Rating Scale (C-SSRS) CSSRS Past [...] on TueJuly 24 in at 0930 am Sikhism Preference : Mandaen Spiritual/Cult Concerns/Desires/Needs : Prayer Spiritual/Cultural Needs Comment [...] Rosalva Kay RN - 07/25/2019 16:29 EDT Electronically signed by Suze Lockett Conversion Concrete Engineering Technician Cerner at 06/02/2022 1:50 PM CDT documented in this encounter Plan of Treatment Not on file documented as of this encounter Visit Diagnoses Not on filedocumented in this encounter
--- OUTSIDE RECORDS SUMMARY | 2024-09-13 15:42 | XMS_ITS | Encounter Summary ---
Author Organization [employer] ([place], [place], [place], [place]) Address [address] [place] [address] Care Team Providers Care Business Writer Name Role Phone Unavailable Primary Care Provider Unavailabl e Encounter Details Date Type Department Care Team (Late st Contact Info) Description 07/26/2019 Transcribed Document [facility] [place] [facility] [place] [facility] [place] [address] ProviderIrasema MD [address] [place] [address] Social History Tobacco Use Types [...] Conversion Note - Historical ProviderMD - 07/26/2019 2:29 PM CDT Treatment [...] : 07/25/2019 06:54 Co-treated by, OT : virtual assistant for advertisers (WINDOWS ARCHITECT) Personal Devices : Personal Devices No Devices [...] TESFAYE MARES, OTR/L - 07/27/2019 12:45 EDT Usp Goals, OT Grooming LTG Grid Goal #1 Activity : Grooming Assist : Independent, modified Date to Meet : 08/09/2019 EDT Goal Status : Initial goal TESFAYE MARES, OTR/L - 07/27/2019 12:45 EDT Dressing, Upper Body LTG Grid Goal #1 Assist : Independent, modified Date to Meet : 08/09/2019 EDT Goal Status : Initial goal TESFAYE MARES OTR/L - 07/27/2019 12:45 EDT Dressing, Lower [...] EDT Goal Status : Initial goal TESFAYE MARESCECILIA/Seven - 07/27/2019 12:45 EDT Treatment Note Subjective [...] Continue with pt's POC per pt tolerance. LAKSHMI MARESCECILIA MASTERS/Seven - 07/27/2019 12:45 EDT Pain Assessment Pain Scaled Used : 0-10 Pain scale Pain Score Pre-Intervention : 0 TESFAYE MARES OTR/Seven - 07/27/2019 12:45 EDT Image 1 - Images currently included in the form version of this document have not been included in the text rendition version of the form. Dorr OT Charges OT Selfcare/Hm Mgmt Ea 15 Min : 1 OT Ther Activities Ea 15 Min : 1 SUZAN LAKSHMICECILIA MASTERS/Seven - 07/27/2019 12:45 EDT documented in this encounter Plan of Treatment Not on file documented as of this encounter Visit Diagnoses Not on filedocumented in this encounter
--- OUTSIDE RECORDS SUMMARY | 2024-09-13 15:42 | XMS_ITS | Clinical Summary ---
Author Organization [facility] Address [address] [place] [address] Care Team Providers Care Correctional Case Manager Name Role Phone Reji Price MD Primary Care Provider [phone] Allergies No known active allergies Medications atorvastatin [...] [facility]-Depression Screening 1941 [facility]-Infant/Child/Adol SDOH Screenings 1941 [facility]- SDOH Screenings 12/29/1959 [facility]-Adult SDOH Screenings 12/29/1959 [facility]-DTaP,Tdap,and Td Vaccines (1 - Tdap) 1960 [facility]-Zoster Vaccines (1 of 2) 12/29/1991 [facility]-RSV Vaccine: 60+ Years or (1 - 1-dose 75+ series) 2016 [id number] Vaccine (4 - 2023- season) 2023 12/25/2020, 05/15/2020, 04/16/2020 [facility]-Influenza Vaccine (#1) 10/15/202411/05, 11/30/2016, 11/21/2015, Additional history exists [facility]-Pneumococcal Vaccine: [...] age to complete this topic Insurance MEDICARE [facility] Advance Directives * Full Code (Latest Code Status on File) Date Activated Date Inactivated Comments 07/19/2021 11:25 AM 07/20/2021 5:13 PM Question Answer Comments Patient has decision-making capacity? Yes Care Teams Correctional Case Manager Relationship Specialty Start Date End Date Reji Price MD [address] [place] [address] #1 #1 SYLVIA Vaughan [id number] PCP - General 06/03/22
[2024-09-13 16:12] LABS: Hematocrit 42.3 % (37.0-47.0); Hemoglobin 14.1 g/dL (12.2-16.2); Immature Granulocytes % 0.3 %; Mean Corpuscular HGB Conc 33.3 g/dL (31.8-35.4); Mean Corpuscular Hemoglobin 33.6 pg (27.0-31.2); Mean Corpuscular Volume 100.7 fl (81-99); Nucleated Red Blood Cells % 0 %; Platelet Count 262 K/mm3 (142-424); Red Blood Count 4.20 M/mm3 (4.20-5.40); Red Cell Distribution Width-SD 49.4 fL; White Blood Count 7.3 K/mm3 (4.8-10.8)
[2024-09-13 16:23] LABS: Ammonia < 9 umol/L (9-30)
[2024-09-13 16:55] LABS: Alanine Aminotransferase 11 U/L (12-78); Albumin Level 3.6 g/dl (3.5-5.0); Alkaline Phosphatase 147 U/L (38-126); Amylase 50 U/L (30-110); Anion Gap 9.7 mEq/L (5-15); Aspartate Amino Transferase 26 U/L (14-36); Bilirubin,Direct 0.1 mg/dl (0.0-0.4); Bilirubin,Indirect 0.1 mg/dL (0.0-0.9); Bilirubin,Total 0.2 mg/dl (0.2-1.3); Bilirubin,Unconjugated 0.2 mg/dL (0.0-1.1); Blood Urea Nitrogen 9 mg/dl (7-17); Calcium 9.3 mg/dl (8.4-10.2); Carbon Dioxide 32 mmol/L (22.0-30.0); Chloride 98 mmol/L (98-107); Cholesterol 102 mg/dl (140-200); Creatinine,Serum 0.80 mg/dl (0.52-1.04); Estimated Glomerular Filt Rate 69 ml/min (>60); GFR (African American) 83 ML/MIN (>60); Glucose 107 mg/dl (74-100); HDL Cholesterol 45 mg/dl (40-60); Lipase 183 U/L (23-300); Magnesium 1.9 mg/dl (1.6-2.3); Potassium 3.7 mmoL/L (3.5-5.1); Sodium 136 mmol/L (136-145); Total Protein,Serum 6.1 g/dl (6.3-8.2); Triglycerides 167 mg/dl (30-150)
[2024-09-13 17:03] LABS: NT Pro Brain Natriuretic Pep. 457 pg/mL (0-450)
[2024-09-13 17:12] LABS: Free T4 (Free Thyroxine) 1.24 ng/dl (0.78-2.19)
[2024-09-13 17:25] LABS: Thyroid Stimulating Hormone 0.02 uIU/mL (0.465-4.68)
[2024-09-13 19:13] LABS: Iron 246 ug/dL (37-170)
[2024-09-13 19:22] LABS: Total Iron Binding Capacity 331 ug/dL (265-497)
[2024-09-13 19:49] LABS: Ferritin 38.4 ng/ml (11.1-264)
== END 2024-09-13 23:59 | disposition home or self-care (01) ==
LOC: LAB 15:39
PROVIDERS: PCP Internal Medicine; Visit Provider Physician Assistant
DX: I25.118 Atherosclerotic heart disease of native coronary artery with other forms of angina pectoris (principal); I65.23 Occlusion and stenosis of bilateral carotid arteries; E78.2 Mixed hyperlipidemia; I42.9 Cardiomyopathy, unspecified; Z95.810 Presence of automatic (implantable) cardiac defibrillator; I44.7 Left bundle-branch block, unspecified; I50.32 Chronic diastolic (congestive) heart failure; R41.3 Other amnesia; R44.3 Hallucinations, unspecified; F51.4 Sleep terrors [night terrors]; F51.3 Sleepwalking [somnambulism]; R06.01 Orthopnea
CPT/HCPCS: 36415; 80048; 80061; 80076; 82140; 82150; 82728; 83540; 83550; 83690; 83735; 83880; 84439; 84443; 85025

== ENCOUNTER 2024-10-31 16:35 | Emergency (ER) | payer MEDICARE, BC, SELFPAY ==
[2024-10-31] VITALS (9 sets, daily range): BP systolic 130–156; BP diastolic 44–70; PULSE 74–96; RESP 16–24; TEMP 36.8–37; O2SAT 92–99; BMI 25.4
--- NOTE | 2024-10-31 16:38 | ECG_ITS ---
APPROVED REPORT Exam: Resting ECG HR:92 bpm ECG Measurements Heart Rate 92 AXES TN 127 P 65 QRSd 173 QRS -11 QT 432 T 60 QTc 481 Conclusion ELECTRONIC VENTRICULAR PACEMAKER ABNORMAL RHYTHM ECG UNCONFIRMED REPORT Electronically signed by : SANTA LEE, 11/01/2024 06:39:22
--- NOTE | 2024-10-31 16:44 | HMH.EDGENADL ---
Discharge Plan Disposition Patient Disposition: Home, Self-Care Condition: Good Prescriptions Prescriptions: No Action furosemide [Lasix] 40 mg tablet 80 mg PO BID omega 9-dvg-hvz-fish oil [Fish Oil] 1,200 (144-216) mg capsule 1 cap PO DAILY acetaminophen [Tylenol Extra Strength] 500 mg tablet 500 mg PO Q6H PRN ferrous sulfate [iron] 325 mg (65 mg iron) tablet 325 mg PO DAILY metoprolol succinate 50 mg tablet extended release 24 hr 50 mg PO BID Qty: 180 3RF atorvastatin 40 mg tablet 40 mg PO HS Qty: 90 3RF melatonin 3 mg tablet 3 mg PO HS PRN (Reason: sleep) Qty: 30 0RF nitroglycerin 0.4 mg tablet, sublingual 0.4 mg sublingual NEEDED PRN (Reason: Chest Pain) Qty: 20 0RF clopidogrel 75 mg tablet 75 mg PO DAILY Qty: 90 3RF escitalopram oxalate 20 MG tablet 20 mg PO DAILY Referrals Follow up/Referrals: Provider,Referral, MD [Primary Care Provider, Medical] - See instructions Activity Restrictions/Add. Instructions Additional Instructions/Restrictions: Return to the emergency department or follow-up with your cognos tm1 developer for any acute or worsening chest pain. Clinical Impressions Clinical Impression: Chest pain Print Language Print Language: Russian Discharge ED Provider: Candelaria Martin Adult HPI General Chief complaint: Chest Pain Stated complaint: chest pain Time Seen by Provider: 10/31/24 16:43 Mode of Arrival: Ambulatory Source of Information: Patient and Relative Description of Symptoms (Recalled from ER Triage Doc. by RN): patient presents for chest pain that has been happening on and off for 3 months, but has worsened over the last 2 days. lauren stated she has taken 2 doses of her nitroglycerin today with no relief prompting her visit. Nan staetd the pain is mostly in her upper back and goes down her left ar,m. she also states he r heart is flopping in the wind . History of Present Illness HPI narrative: Patient is an 83-year-old female with a past medical history of coronary disease, hypertension and high cholesterol who presented to the emergency department with left-sided chest pain since 3 PM. Patient states that she has been present for the last couple days but returned again at 3 PM today. Patient states that the pain is left-sided radiates into the left arm as well as into the back between her shoulder blades. Patient states that she took 2 doses of nitroglycerin with minimal relief. Patient does report some palpitations as well. Patient reports she has a history of A-fib and is on Plavix but denies any other blood thinners. Patient reports some mild shortness of breath does currently smoke. Patient denies any history of blood clots. Patient denies any recent infectious symptoms including fevers cough chills runny nose. Patient denies any abdominal pain vomiting diarrhea. Patient states that she has a cognos tm1 developer Dr. Iniguez. Related Data Home Medications ?Medication ?Instructions ?Recorded ?Confirmed escitalopram oxalate 20 mg tablet 20 mg PO DAILY 02/24/17 10/29/24 acetaminophen 500 mg tablet 500 mg PO Q6H PRN 04/02/24 10/29/24 (Tylenol Extra Strength) ferrous sulfate 325 mg (65 mg 325 mg PO DAILY 04/02/24 10/29/24 iron) tablet (iron) furosemide 40 mg tablet (Lasix) 80 mg PO BID Fluid 04/11/24 10/29/24 omega 4-wyx-cub-fish oil 1,200 mg 1 cap PO DAILY 07/17/24 10/29/24 (144 mg-216 mg) capsule (Fish Oil) Previous Rx's ?Medication ?Instructions ?Recorded nitroglycerin 0.4 mg sublingual 0.4 mg sublingual NEEDED PRN 06/26/24 tablet Chest Pain #20 tabs atorvastatin 40 mg tablet 40 mg PO HS Cholesterol #90 tabs 07/17/24 melatonin 3 mg tablet 3 mg PO HS PRN sleep #30 tabs 07/17/24 metoprolol succinate 50 mg 50 mg PO BID #180 tabs 07/17/24 tablet,extended release 24 hr clopidogrel 75 mg tablet 75 mg PO DAILY #90 tabs 09/21/24 Allergies Allergy/AdvReac Type Severity Reaction Status Date / Time No Known Allergies Allergy Verified 10/29/24 14:48 [facility] Disclaimer: The information contained in this section may have been updated after the patient was seen, as this information can be updated by other users. Medical History Asthma Leg weakness, bilateral Leg pain, bilateral Smoking greater than 30 pack years Pulmonary emphysema HLD (hyperlipidemia) Myopericarditis Elevated troponin Pneumonia Chest wall pain Restrictive lung disease Moderate persistent asthma Hernia Atrial flutter Preoperative clearance Left bundle branch block (LBBB) on electrocardiogram Edema SOB (shortness of breath) Carotid artery stenosis Exertional dyspnea Anemia CAD (coronary artery disease) Recent myocardial infarction (~01/27/17) CHF (congestive heart failure) HTN (hypertension) Surgical History AICD (automatic cardioverter/defibrillator) present Family History Other Cervical cancer Family history of hyperlipidemia Family history of hypertension Family history of multiple sclerosis Family history of myocardial infarction Lung cancer No significant family history Skin cancer Social History Smoking Status: Current every day smoker second hand exposure: No alcohol intake: current alcohol intake frequency: 0-2 drinks per day counseling provided: none substance use type: marijuana and other details: Pt reports she doesn't keep marijuana at home, smokes with friend current occupational status: retired Travel in the last 8 weeks?: None household members: children housing: house current occupation: real estate current occupational exposures/hazards: Yes caffeine: Yes Have you lived/traveled outside US in past 30 days?: No Contact w/someone who lives/traveled outside US past 30 days?: No Exposure to someone with infectious disease in past 14 days?: No Do you have a fever (greater than 100.4 F or 38 C)?: No Have you tested positive for COVID-19?: No Exposed to someone with COVID-19 in past 14 days?: No Do you have a sore throat?: No Do you have a cough?: No Do you have any weakness?: No Do you have any diarrhea?: No Are you experiencing any unusual bleeding?: No Do you have any muscle aches/pain?: No Do you have any abdominal pain?: No Are you experiencing loss of taste or smell?: No Other Medical History Have you received the Flu Vaccine for this season: No Have you received the Pneumonia Vaccine: Yes ROS Obtained: Yes All systems reviewed & no additional complaints except as documented and Yes Systems reviewed as appropriate & no additional complaints except as documented Physical Exam General General appearance: alert and in no apparent distress Head Head exam: atraumatic, normocephalic and normal inspection Eye Eye exam: Present normal appearance, PERRL and EOMI; Absent scleral icterus ENT ENT exam: Present normal exam and normal external ear exam Neck Neck exam: Present normal inspection and full ROM Chest Chest inspection: Present normal inspection and symmetric chest wall rise Respiratory Respiratory exam: Present normal lung sounds bilaterally; Absent respiratory distress or wheezes Cardiovascular Cardiovascular exam: Present regular rate, normal rhythm and normal heart sounds Abdominal Exam Abdominal exam: Present soft and distention; Absent tenderness, guarding or rebound Extremities Exam Extremities exam: Present normal inspection and full ROM Back Exam Back exam: Present normal inspection and full ROM Neurological Exam Neurological exam: Present alert and oriented X3 Psychiatric Psychiatric exam: Present normal affect and normal mood Skin Skin exam: Present warm and dry Medical Decision Making Medical Records Medical records reviewed: Yes I reviewed the patient's medical records. Screening: Per USPSTF and CDC recommendations, given the prevalence of disease in our region, it is our hospital?s policy to screen for HIV and viral Hepatitis for all patients aged 18 and over and those with ongoing risk factors. Chuy Inquiry Pt receiving controlled substance: No Vital Signs: 10/31/24 16:36 10/31/24 17:23 10/31/24 18:45 Temperature 98.2 F Temperature Source Oral Pulse Rate 93 H 82 Pulse Rate [Right Radial] 96 H Respiratory Rate 20 16 Blood Pressure 148/66 H Blood Pressure [Right Arm] 136/62 Blood Pressure Mean [Right Arm] 86 Blood Pressure Source [Right Arm] Automatic Cuff Blood Pressure Position [Right Arm] Sitting 02 Sat by Pulse Oximetry 99 95 Oxygen Delivery Method Room Air 10/31/24 19:00 10/31/24 19:30 10/31/24 19:40 Temperature Temperature Source Pulse Rate 74 88 88 Pulse Rate [Right Radial] Respiratory Rate 22 Blood Pressure 139/59 L 136/59 L 156/70 H Blood Pressure [Right Arm] Blood Pressure Mean [Right Arm] Blood Pressure Source [Right Arm] Blood Pressure Position [Right Arm] 02 Sat by Pulse Oximetry 94 L 95 96 Oxygen Delivery Method 10/31/24 20:00 10/31/24 20:35 10/31/24 21:06 Temperature 98.6 F Temperature Source Oral Pulse Rate 79 81 85 Pulse Rate [Right Radial] Respiratory Rate 17 24 Blood Pressure 130/44 L 148/61 H 148/61 H Blood Pressure [Right Arm] Blood Pressure Mean [Right Arm] Blood Pressure Source [Right Arm] Blood Pressure Position [Right Arm] 02 Sat by Pulse Oximetry 96 96 Oxygen Delivery Method Room Air Room Air Lab Data Lab results reviewed: Yes I reviewed the patient's lab results. Lab Results 10/31/24 16:46: WBC 10.2, RBC 4.33, Hgb 14.6, Hct 41.6, MCV 96.1, MCH 33.7 H, MCHC 35.1, RDW 12.9, Plt Count 232, MPV 10.2, Neut % (Auto) 78.1, Lymph % (Auto) 15.6, Dickinson % (Auto) 5.6, Eos % (Auto) 0.2, Baso % (Auto) 0.3, Neut # (Auto) 8.0 H, Lymph # (Auto) 1.6, Dickinson # (Auto) 0.6, Eos # (Auto) 0.0, Baso # (Auto) 0.0, PT 11.1, INR 1.00, Sodium 134 L, Potassium 2.9 L*, Chloride 96 L, Carbon Dioxide 28, Anion Gap 12.9, BUN 11, Creatinine 0.60, Estimated Creat Clear 39, Estimated GFR 96, Est GFR ( Amer) 116, Glucose 192 H, Calcium 9.0, Magnesium 1.5 L, Total Bilirubin 0.6, AST 43 H, ALT 18, Alkaline Phosphatase 115, Troponin I < 0.01, NT-Pro-B Natriuret Pep 391, Total Protein 6.8, Albumin 3.6, Globulin 3.2, Albumin/Globulin Ratio 1.1 10/31/24 19:46: Troponin I < 0.01 10/31/24 16:46 10/31/24 16:46 Orders (Tests/Meds): ED MEDICATIONS Discontinued Medications Generic Name Dose Route Start Last Admin Trade Name Freq PRN Reason Stop Dose Admin Aspirin 325 mg 10/31/24 17:04 10/31/24 17:11 Aspirin 325mg Tablet PO 10/31/24 17:05 325 mg ONCE ONE Administration Iopamidol 70 ml 10/31/24 18:27 10/31/24 18:28 Iopamidol-370 (76%);100ml Bottle IV 10/31/24 18:28 70 ml ONCE ONE Administration Potassium Chloride 40 meq 10/31/24 17:32 10/31/24 17:38 Potassium Chloride 20meq Tab PO 10/31/24 17:33 40 meq ONCE ONE Administration Potassium Chloride 40 meq 10/31/24 20:53 10/31/24 21:02 Potassium Chloride 20meq Tab PO 10/31/24 20:54 40 meq ONCE ONE Administration Sodium Chloride 10 ml 10/31/24 18:27 10/31/24 18:28 Sodium Chloride 0.9% 10ml Syr (Rad Only) IV 10/31/24 18:28 10 ml ONCE ONE Administration Sodium Chloride 50 ml 10/31/24 18:27 10/31/24 18:28 0.9 % Sodium Chloride 50 Ml Vial IV 10/31/24 18:28 50 ml ONCE ONE Administration ORDERS Category Date Time Status CT angio chest PE protocol Stat Cat Scan 10/31/24 17:04 Completed CXR --portable [XR chest portable] Stat Exams 10/31/24 17:04 Completed BNP [NT Pro Brain Natriuretic Pep.] Stat Lab 10/31/24 16:46 Completed CBC w/Auto Diff [Complete Blood Count Auto Diff] Stat Lab 10/31/24 16:46 Completed CMP [Comprehensive Metabolic Panel] Stat Lab 10/31/24 16:46 Completed MAG [Magnesium] Stat Lab 10/31/24 16:46 Completed PT INR [Prothrombin Time INR] Stat Lab 10/31/24 16:46 Completed Trop I [Troponin I] Stat Lab 10/31/24 16:46 Completed Troponin I Q3H Lab 10/31/24 19:46 Completed Medical Decision Narrative: Patient is an 83-year-old female who presented to the emergency department with chest pain. On arrival, patient was hemodynamically stable with unremarkable labs. Differential includes but not limited to: ACS/MO, unstable angina, pneumothorax, pleural effusion, costochondritis, pneumonia, arrhythmia, amongst others. Patient was given 324 of aspirin in the emergency department with plan for reassessment. Patient's labs were reviewed and interpreted by myself: CBC showed no leukocytosis, hemoglobin is stable. CMP was unremarkable. Magnesium normal. INR normal. Initial troponin less than 0.01, second troponin less than 0.01. EKG reviewed and interpreted by myself no acute ST or T wave changes concerning for ischemia CT of the chest was reviewed and interpreted by myself and showed no acute pathology. On reassessment, patient's chest pain was resolved. Given patient's otherwise unremarkable workup I felt that patient was appropriate for discharge home. Patient was advised to follow-up with her cognos tm1 developer. Critical Care Critical Care Time Critical Care Time: No
--- OUTSIDE RECORDS SUMMARY | 2024-10-31 16:48 | XMS_ITS | Clinical Summary ---
Author Organization [facility] Address [address] [place] [address] Care Team Providers Care Bi Data Modeler Name Role Phone Reji Price MD Primary Care Provider [phone] Allergies No known active allergies Medications atorvastatin [...] or (1 - 1-dose 75+ series) 2016 [id number] Vaccine (4 - 2024- season) 2024 12/25/2020, 05/15/2020, 04/16/2020 [facility]-Influenza Vaccine (#1) 10/15/202411/05, [...] age to complete this topic Insurance MEDICARE [facility] Advance Directives * Full Code (Latest Code Status on File) Date Activated Date Inactivated Comments 07/19/2021 11:25 AM 07/20/2021 5:13 PM Question Answer Comments Patient has decision-making capacity? Yes Care Teams Bi Data Modeler Relationship Specialty Start Date End Date Reji Price MD [address] [place] [address] #1 #1 SYLVIA Vaughan [id number] PCP - General 06/03/22
--- OUTSIDE RECORDS SUMMARY | 2024-10-31 16:48 | XMS_ITS | Clinical Summary ---
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 Provider MEDROL 4 MG TBPK as directed 09/28 METHYLPREDNISOLONE [id number] Randy Spicer MD ZANAFLEX CAPSULE Non-[place] 03/14 TIZANIDINE HCL CAPS [id number] Shilpa Mora MA RANEXA TABLET EXTENDED RELEASE 12 HOUR Non-[place] 03/14 RANOLAZINE [id number] Shilpa Mora MA MIRAPEX 1 MG ORAL TABLET Non-[place] 03/14 PRAMIPEXOLE DIHYDROCHLORIDE [id number] Shilpa Mora MA PROTONIX 40 MG PACK Non-[place] 03/14 PANTOPRAZOLE SODIUM [id number] Shilpa Mora MA ISOSORBIDE MONONITRATE TABS -03/14 ISOSORBIDE MONONITRATE TABS [id number] Shilpa Mora MA HYDROCHLOROTHIAZIDE 25 MG TABS -[place] 03/14 HYDROCHLOROTHIAZIDE 71150289913 Shilpa Mora MA NEURONTIN 600 MG TABS -03/14 GABAPENTIN [id number] Shilpa Mora MA LEXAPRO 10 MG TABS -[place] 03/14 ESCITALOPRAM OXALATE [id number] Shilpa Mora MA BENTYL 20 MG ORAL TABLET -Graf 03/14 DICYCLOMINE HCL 68110514425 Shilpa Mora MA PLAVIX 75 MG TABS -Graf 03/14 CLOPIDOGREL BISULFATE [id number] Shilpa Mora MA LIPITOR 40 MG TABS -03/14 ATORVASTATIN CALCIUM [id number] Shilpa Mora MA PEPCID 20 MG TABS -[place] 10/24 FAMOTIDINE [id number] Shilpa Mora MA LEXAPRO 10 MG TABS -[place]raf 10/24 ESCITALOPRAM OXALATE [id number] Shilpa Mora MA PROTONIX 40 MG PACK -Graf 10/24 PANTOPRAZOLE SODIUM [id number] Shilpa Mora MA NITROSTAT 0.4 MG SUBL [place] 10/24 NITROGLYCERIN [id number] Shilpa Mora MA BENTYL 20 MG ORAL TABLET -10/24 DICYCLOMINE HCL [id number] Shilpa Mora MA MIRAPEX 1.5 MG ORAL TABLET -[place]raf 10/24 PRAMIPEXOLE DIHYDROCHLORIDE [id number] Shilpa Mora MA PLAVIX 75 MG TABS -[place]raf 10/24 CLOPIDOGREL BISULFATE [id number] Shilpa Mora MA ZOCOR 20 MG TABS -Graf 10/24 SIMVASTATIN [id number] Shilpa Mora MA COREG 3.125 MG TABS Non-Graf 10/24 CARVEDILOL [id number] Shilpa Mora MA ULTRAM 50 MG ORAL TABLET 1 q 6 - 8 prn 10/24 TRAMADOL HCL [id number] Shilpa Mora MA FLEXERIL 10 MG TABS 1 qhs, and 1/2 -1 q 8 prn during the day, max of 3 a day 10/24 CYCLOBENZAPRINE HCL [id number] Shilpa Mora MA PERCOCET 5-325 MG TABS 1-2 q 4-6 hrs. prn pain 10/27 OXYCODONE-ACETAMINOP HEN 27967158034 Shilpa Mora MA MEDROL 4 MG TBPK as directed 10/27 METHYLPREDNISOLONE [id number] Shilpa Mora MA NORCO 7.5-325 MG ORAL TABLET 1 QID 11/13 HYDROCODONE-ACETAMIN OPHEN 78550983867 Shilpa Mora MA VICODIN 5-300 MG ORAL TABLET 1 QID 02/14 HYDROCODONE-ACETAMIN OPHEN 33019543801 Shilpa Mora MA VICODIN 5-300 MG ORAL TABLET 1 QID 02/14 HYDROCODONE-ACETAMIN OPHEN [id number] Randy Spicer MD NORCO 7.5-325 MG ORAL TABLET 1 QID 11/13 HYDROCODONE-ACETAMIN OPHEN [id number] Randy Spicer MD MEDROL 4 MG TBPK as directed 10/27 METHYLPREDNISOLONE [id number] Randy Spicer MD PERCOCET 5-325 MG TABS 1-2 q 4-6 hrs. prn pain 10/27 OXYCODONE-ACETAMINOP HEN [id number] Randy Spicer MD PEPCID 20 MG TABS Non-Graf 10/24 FAMOTIDINE [id number] Isaiah Sam MD LEXAPRO 10 MG TABS Non-Graf 10/24 ESCITALOPRAM OXALATE [id number] Isaiah Sam MD PROTONIX 40 MG PACK -[place]raf 10/24 PANTOPRAZOLE SODIUM [id number] Isaiah Sam MD NITROSTAT 0.4 MG SUBL -Graf 10/24 NITROGLYCERIN [id number] Isaiah Sam MD BENTYL 20 MG ORAL TABLET -Graf 10/24 DICYCLOMINE HCL [id number] Isaiah Sam MD MIRAPEX 1.5 MG ORAL TABLET -Graf 10/24 PRAMIPEXOLE DIHYDROCHLORIDE [id number] Isaiah Sam MD PLAVIX 75 MG TABS -Graf 10/24 CLOPIDOGREL BISULFATE [id number] Isaiah Sam MD ZOCOR 20 MG TABS -Graf 10/24 SIMVASTATIN [id number] sIaiah Sam MD COREG 3.125 MG TABS -Graf 10/24 CARVEDILOL [id number] Isaiah Sam MD ULTRAM 50 MG ORAL TABLET 1 q 6 - 8 prn 10/24 TRAMADOL HCL [id number] Isaiah Sam MD FLEXERIL 10 MG TABS 1 qhs, and 1/2 -1 q 8 prn during the day, max of 3 a day 10/24 CYCLOBENZAPRINE HCL [id number] Isaiah Sam MD Medications Administered No information [...] No flu shot received; allergy etc. 06/09 CPT-25382 EMG w/ NCS, Complete, 1 Extremity CPT-599 82 3415/04/11 CPT-78831 Nerve Conduction [place] dy (5-6 studies) CPT-55367 [id number] Medications Documented G8427 Medication Reconcili ation Completed CPT-G8427 G8730 Pain Assessment posi tive with follow up plan G8417 BMI above normal, f/u plan documented 201 07/15/28 1036F No tobacco use currently 201 07/15/28 4040F Pneumococcal vaccine received G8483 No flu shot received; allergy etc. 03/14 1123F ACP/POA documented 9 [facility]-[id number] Pneumonia Vaccine Previously Received 01/03/28 G8427 Medication [...]
--- NOTE | 2024-10-31 17:04 | CT_ITS ---
PROCEDURE INFORMATION: Exam: CTA Chest With Contrast Exam date and time: 10/31/2024 6:11 PM Age: 83 years old Clinical indication: Other: Chest pain into back TECHNIQUE: Imaging protocol: Computed tomographic angiography of the chest with contrast. Exam focused on the arteries. 3D rendering (Not supervised by radiologist): MIP and/or 3D reconstructed images were created by the technologist. Radiation optimization: All CT scans at this facility use at least one of these dose optimization techniques: automated exposure control; mA and/or kV adjustment per patient size (includes targeted exams where dose is matched to clinical indication); or iterative reconstruction. Contrast material: ISOVUE; Contrast volume: 70 ml; Contrast route: INTRAVENOUS (IV); COMPARISON: CT ANGIO CHEST 03/14/2024 12:03 PM FINDINGS: Tubes, catheters and devices: Left subclavian transvenous biventricular pacemaker leads. Pulmonary arteries: No acute pulmonary emboli. Aorta: Atherosclerotic disease of the thoracic aorta, without aneurysm or dissection. Lungs: Mild bilateral upper and lower lobe bronchial wall thickening, compatible with reactive airway disease or bronchitis. Atelectasis and/or scarring within the right middle lobe and lingula. Calcified granulomas within the medial aspect of the right lower lobe. Pleural spaces: Unremarkable. No pneumothorax. No pleural effusion. Heart: Mild left ventricular chamber enlargement. Lymph nodes: Calcified right hilar lymph nodes, compatible with prior granulomatous disease. Diaphragm: Small-sized hiatal hernia. Gallbladder and biliary ducts: Gallbladder surgically absent. Bones/joints: Multilevel thoracic spine degenerative disc space narrowing and osteophyte formation. Soft tissues: Unremarkable. IMPRESSION: 1. No acute pulmonary emboli. 2. Mild bilateral upper and lower lobe bronchial wall thickening, compatible with reactive airway disease or bronchitis. 3. Other (less critical/noncritical/incidental) findings as above; please refer to the body of report for further details.
--- NOTE | 2024-10-31 17:04 | XR_ITS ---
PROCEDURE INFORMATION: Exam: XR Chest Exam date and time: 10/31/2024 6:21 PM Age: 83 years old Clinical indication: Shortness of breath; Additional info: Shortness of breath, chest pain TECHNIQUE: Imaging protocol: Radiologic exam of the chest. Views: 1 view. COMPARISON: CT ANGIO CHEST PE PROTOCOL 10/31/2024 6:11 PM FINDINGS: Tubes, catheters and devices: Left subclavian transvenous biventricular pacemaker/AICD in place. Lungs: No focal consolidation or pulmonary edema. Pleural spaces: Normal. Heart/Mediastinum: Metallic stent within the left anterior descending coronary artery. Vasculature: Atherosclerotic vascular disease. Bones/joints: No acute abnormality. IMPRESSION: No acute cardiopulmonary abnormality.
[2024-10-31] MEDS: ASPIRIN 325MG TABLET 325 MG PO (17:11)
[2024-10-31 17:17] LABS: Hematocrit 41.6 % (37.0-47.0); Hemoglobin 14.6 g/dL (12.2-16.2); Immature Granulocytes % 0.2 %; Mean Corpuscular HGB Conc 35.1 g/dL (31.8-35.4); Mean Corpuscular Hemoglobin 33.7 pg (27.0-31.2); Mean Corpuscular Volume 96.1 fl (81-99); Nucleated Red Blood Cells % 0 %; Platelet Count 232 K/mm3 (142-424); Red Blood Count 4.33 M/mm3 (4.20-5.40); Red Cell Distribution Width-SD 46.0 fL; White Blood Count 10.2 K/mm3 (4.8-10.8)
[2024-10-31 17:20] LABS: Albumin Level 3.6 g/dl (3.5-5.0); Chloride 96 mmol/L (98-107)
[2024-10-31 17:21] LABS: Sodium 134 mmol/L (136-145)
[2024-10-31 17:23] LABS: Alanine Aminotransferase 18 U/L (12-78); Albumin/Globulin Ratio 1.1 (1.1-1.8); Anion Gap 12.9 mEq/L (5-15); Aspartate Amino Transferase 43 U/L (14-36); Bilirubin,Total 0.6 mg/dl (0.2-1.3); Blood Urea Nitrogen 11 mg/dl (7-17); Carbon Dioxide 28 mmol/L (22.0-30.0); Creatinine Clearance Estimated 39 mL/min (50-200); Creatinine,Serum 0.60 mg/dl (0.52-1.04); Estimated Glomerular Filt Rate 96 ml/min (>60); GFR (African American) 116 ML/MIN (>60); Globulin 3.2 g/dL (1.3-3.2); Total Protein,Serum 6.8 g/dl (6.3-8.2)
[2024-10-31 17:24] LABS: Alkaline Phosphatase 115 U/L (38-126); Calcium 9.0 mg/dl (8.4-10.2); Glucose 192 mg/dl (74-100); Magnesium 1.5 mg/dl (1.6-2.3)
[2024-10-31 17:27] LABS: INR 1.00 (0.9-1.1); Prothrombin Time 11.1 seconds (10.1-12.5)
[2024-10-31 17:29] LABS: Potassium 2.9 mmoL/L (3.5-5.1)
[2024-10-31 17:33] LABS: NT Pro Brain Natriuretic Pep. 391 pg/mL (0-450)
[2024-10-31 17:36] LABS: Troponin I < 0.01 ng/ml (0.00-0.034)
[2024-10-31] MEDS: POTASSIUM CHLORIDE 20MEQ TAB 40 MEQ PO ×2 (17:38→21:02)
[2024-10-31] MEDS: SODIUM CHLORIDE 0.9% 10ML SYR (RAD ONLY) 10 ML IV (18:28)
[2024-10-31] MEDS: IOPAMIDOL-370 (76%);100ML BOTTLE 70 ML IV (18:28)
[2024-10-31] MEDS: 0.9 % SODIUM CHLORIDE 50 ML VIAL IV (18:28)
[2024-10-31 20:28] LABS: Troponin I < 0.01 ng/ml (0.00-0.034)
== END 2024-10-31 21:07 | disposition home or self-care (01) ==
PROVIDERS: Emergency Provider Student in an Organized Health Care Education/Training Program
DX: R07.9 Chest pain, unspecified (principal); E87.6 Hypokalemia; F17.210 Nicotine dependence, cigarettes, uncomplicated; I11.0 Hypertensive heart disease with heart failure; I50.9 Heart failure, unspecified; E78.5 Hyperlipidemia, unspecified
CPT/HCPCS: 71045; 71275; 80053; 83735; 83880; 84484; 85025; 85610; 93005; 99285; Q9967

== ENCOUNTER 2024-11-01 10:08 | Outpatient (CLI) | payer MEDICARE, BC, SELFPAY ==
--- OUTSIDE RECORDS SUMMARY | 2024-11-01 10:14 | XMS_ITS | Encounter Summary ---
Author Organization [employer] ([place], [place], [place], [place]) Address [address] [place] [address] Care Team Providers Care Prepared Foods Associate Name Role Phone Unavailable Primary Care Provider Unavailabl e Encounter Details Date Type Department Care Team (Late st Contact Info) Description 07/25/2019 Transcribed Document [facility] Family Medicine [address] [place] [address] ProviderIrasema MD [address] [place] [address] Social History Tobacco Use Types Packs/Day Years [...] On: 07/25/2019 16:21 EDT by Isaiah Aguilar, WARE SERVER LEAD Meds to Bed Enrollment Patient Enrollment Decision: : No/do not enroll in meds to bed program Reason for Declining Meds to Bed Program: : Other: NA Isiaah Aguilar WARE SERVER LEAD - 07/26/2019 9:14 EDT documented in this encounter Plan of Treatment Not on file documented as of this encounter Visit Diagnoses Not on filedocumented in this encounter
--- OUTSIDE RECORDS SUMMARY | 2024-11-01 10:14 | XMS_ITS | Encounter Summary ---
Author Organization [employer] ([place], [place], [place], [place]) Address [address] [place] [address] Care Team Providers Care Vice President Digital Strategist Name Role Phone Unavailable Primary Care Provider Unavailabl e Encounter Details Date Type Department Care Team (Late st Contact Info) Description 07/25/2019 Transcribed Document [facility] [place] [address] [place] [address] ProviderIrasema MD [address] [place] [address] Social History Tobacco Use Types [...] Historical ProviderMD - 07/25/2019 12:07 PM CDT [facility] OR PACU Summary Primary Physician: GRETA SOTOMAYOR MD-SNMarco Finalized Date/Time: 07/25/19 17:09:16 Pt. Name: GUILLERMINA PEARCE/Sex: 1940 Female Med Rec #: [id number] Physician: GRETA SOTOMAYOR MD-SN Financial #: [id number] Pt. Type: I Room/Bed: 652/1 Admit/Disch: 07/25/19 06:54:00 - Institution: [facility] OR PACU I Case Times Entry 1 In PACU I 07/25/19 14:40:00 Ready for PACU 07/25/19 15:38:00 Discharge Discharge from PACU 07/25/19 16:05:00 I Last Modified By: Ml Wilburn RN 07/25/19 17:08:34 [facility] OR PACU I Case Times Audit 07/25/19 17:08:34 Honing Machine Set Up Operator Tool: TAMSORNM Modifier: TAMSORNM <+> 1 Discharge from PACU I Finalized By: Ml Wilburn RN Document Signatures Signed By: Ml Wilburn RN 07/25/19 17:09 Electronically signed by Levy [facility] Conversion Manufacturing Controller Cerner at 06/02/2022 1:47 PM CDT documented in this encounter Plan of Treatment Not on file documented as of this encounter Visit Diagnoses Not on filedocumented in this encounter
--- OUTSIDE RECORDS SUMMARY | 2024-11-01 10:14 | XMS_ITS | Referral Summary ---
Author Organization [employer] ([place], [place], [place], [place]) Address [address] [place] [address] Care Team Providers Care Loading Machine Operator Helper Name Role Phone Unavailable [...]
--- OUTSIDE RECORDS SUMMARY | 2024-11-01 10:14 | XMS_ITS | Encounter Summary ---
Author Organization [employer] ([place], [place], [place], [place]) Address [address] [place] [address] Care Team Providers Care Supervisor Poultry Processing Name Role Phone Unavailable Primary Care Provider Unavailabl e Encounter Details Date Type Department Care Team (Late st Contact Info) Description 06/25/2019 Transcribed Document [facility] [place] [address] [place] [address] ProviderIrasema MD [address] [place] [address] Social History Tobacco Use Types [...] Irasema ProviderMD - 06/25/2019 2:31 PM CDT [facility] [place] [address] GUILLERMINA HINOJOSA :1940 Visit Time:06/25/2019 Your Visit Summary Your Care Team Admitting Physician - GRETA SOTOMAYOR MD-SNU Attending Physician - GRETA SOTOMAYOR MD-SNU Primary Care Physician - ELISEO VALENCIA MD-[facility] Referring Physician - GRETA SOTOMAYOR MD-SNU Your Diagnosis Chronic pain syndrome, Chronic pain syndrome Discharge Vitals Heart Rate (Monitored) 78 Respiratory Rate 20 Blood Pressure 97/57 What to do next Follow-Up Appointments Follow Up with GRETA SOTOMAYOR MD-SNU When Within 2 to 3 days Where: [address] [place] [address]- Medications What How Much When Instructions Next [...] including vitamins, herbs, eye drops, creams, and fndp-kcr-injiryn medicines. ??? Previous problems you or members [...] 09/23/2004 Document Revised: 06/15/2016 Document Reviewed: 11/13/2015 [employer] Interactive Patient Education ?? 2019 [employer] Spinal Headache A spinal headache is [...] Follow these instructions at home: ??? Take qrzm-foj-pmdmflp and prescription medicines only as told by [...] 07/23/2002 Document Revised: 03/15/2018 Document Reviewed: 03/15/2018 [email or web address] Interactive Patient Education ?? 2019 [employer] Cerebrospinal Fluid Leak, Adult Cerebrospinal fluid [...] with your health care providers. ??? Take xnot-bbm-rhykcwx and prescription medicines only as told by [...] 06/11/2016 Document Revised: 08/20/2016 Document Reviewed: 06/11/2016 [employer] Interactive Patient Education ?? 2019 [employer] Lumbar Puncture, Care After This sheet [...] a bad smell. General instructions ??? Take nmcd-gjk-bgaylal and prescription medicines only as told by [...] 02/05/2014 Document Revised: 03/16/2017 Document Reviewed: 03/16/2017 [employer] Interactive Patient Education ?? 2019 [employer]. Emergency Awareness and Preventative Care STROKE is [...] Assistance with quitting is available by contacting 5-467-CZOT-NOW. This is a free resource providing counseling, [...] was given the opportunity to ask questions. Patient/Exterior Work Helper Name: Patient/Exterior Work Helper Signature: Relationship to Patient: Clinician/Hospital Exterior Work Helper Signature: Date: documented in this encounter Plan of Treatment Not on file documented as of this encounter Visit Diagnoses Not on filedocumented in this encounter
--- OUTSIDE RECORDS SUMMARY | 2024-11-01 10:14 | XMS_ITS | Encounter Summary ---
Author Organization [employer] ([place], [place], [place], [place]) Address [address] [place] [address] Care Team Providers Care Fish Roe Processor Name Role Phone Unavailable Primary Care Provider Unavailabl e Encounter Details Date Type Department Care Team (Late st Contact Info) Description 07/27/2019 Transcribed Document [facility] [place] Medicine [facility] [place] [address] ProviderIrasema MD [address] [place] [address] Social History Tobacco Use Types [...] to, Therapy : Home, with home health SHELIA LI PTA - 07/27/2019 11:13 EDT Discharge Summary Comment, PT : Patient was supervision for all transfers ambulates 140ft with RWx supervision Patient has not met 3 LTGs and would benefit from continued PT. PT agrees with written D/C summary. SHITAL GUTIERREZ, PT - 07/27/2019 16:36 EDT Registered Nurse Cardiovascular Icu Goals Mobility/Bed Mobility LTG PT Grid Goal [...]
--- OUTSIDE RECORDS SUMMARY | 2024-11-01 10:14 | XMS_ITS | Encounter Summary ---
Author Organization [employer] ([place], [place], [place], [place]) Address [address] [place] [address] Care Team Providers Care Junior Web Developer Name Role Phone Unavailable Primary Care Provider Unavailabl e Encounter Details Date Type Department Care Team (Late st Contact Info) Description 07/27/2019 Transcribed Document [facility] [place] [address] [place] [address] ProviderIrasema MD [address] [place], [place] [id number] Social History Tobacco Use Types Packs/Day Years [...]
--- OUTSIDE RECORDS SUMMARY | 2024-11-01 10:14 | XMS_ITS | Encounter Summary ---
Author Organization [employer] ([place], [place], [place], [place]) Address [address] [place] [address] Care Team Providers Care Distance Education Teacher Name Role Phone Unavailable Primary Care Provider Unavailabl e Encounter Details Date Type Department Care Team (Late st Contact Info) Description 07/25/2019 Transcribed Document [facility] [place] [place] [address] ProviderIrasema MD [address], [place] [id number] Social History Tobacco Use Types Packs/Day Years [...] Spiritual consult Ministry Provided to : Patient Scientology Preference : Church Melo Newberry Chaplain-Non Cert - 07/26/2019 5:35 EDT Spiritual Assessment Spiritual Assessment Comment/Summary Points : Spiritual care and brief supportive visit provided to patient. Spirital Assessment Comment/Summary Report : SPIRITUAL ASSESSMENT COMMENT/SUMMARY No qualifying data available. Melo Newberry Chaplain-Non Cert - 07/26/2019 5:35 EDT Interventions Emotional Support : Empathic/Engaged listening, Hope strengths identified, Hope struggles identified Spiritual and Scientology : Spiritual/Scientology support provided Melo Newberry Chaplain-Non Cert - 07/26/2019 5:35 EDT Electronically signed by Levy, [facility] Conversion Waiter/Waitress Informal Cerner at 06/02/2022 1:54 PM CDT documented in this encounter Plan of Treatment Not on file documented as of this encounter Visit Diagnoses Not on filedocumented in this encounter
--- OUTSIDE RECORDS SUMMARY | 2024-11-01 10:14 | XMS_ITS | Encounter Summary ---
Author Organization [employer] ([place], [place], [place], [place]) Address [address] [place] [address] Care Team Providers Care Energy Scheduler Name Role Phone Unavailable Primary Care Provider Unavailabl e Encounter Details Date Type Department Care Team (Late st Contact Info) Description 07/25/2019 Transcribed Document [facility] [place] [facility] [place] [address] ProviderIrasema MD [address] [place] [address] Social History Tobacco Use Types [...] Historical ProviderMD - 07/25/2019 12:07 PM CDT [facility] Main OR IntraOp Summary Primary Physician: GRETA SOTOMAYOR MD-SNU Finalized Date/Time: 07/26/19 10:29:18 Pt. Name: GUILLERMINA HINOJOSA Zaida Taveras/Sex: 1940 Female Med Rec #: [id number] Physician: GRETA SOTOMAYOR MD-SNU Financial #: [id number] Pt. Type: I Room/Bed: [facility]/ Admit/Disch: 07/25/19 06:54:00 - Institution: [facility] IntraOp Case Attendance Entry 1 Entry 2 Entry 3 Case Attendee GRETA SOTOMAYOR Byrd, Charlie D, RN COMBEST, ASHLEY P, FIRE MARSHAL REFINERY MD-SNU Role Performed Surgeon/Proceduralist, Truck Hopper, First FIRE MARSHAL REFINERY/Nurse Woods Rider First Time In 07/25/19 11:31:00 07/25/19 11:31:00 [...] WEEMS, PATRICIA SWANN RN Role Performed Physician learning support assistant Scrub, First Truck Hopper, Second Time In 07/25/19 11:31:00 07/25/19 11:31:00 [...] GREG BARRAZA Role Performed Anesthesiologist of Vendor Groundman/Lineman Record Time In 07/25/19 11:31:00 07/25/19 11:31:00 [...] Case Attendee ROBY MORROW, RN KENNETH SMITH, CONTROL INTEGRATION ENGINEER Role Performed Truck Hopper, Second Scrub, First Time In 07/25/19 12:21:00 07/25/19 11:31:00 Time Out 07/25/19 14:38:00 07/25/19 12:00:00 Procedure Lumbar Fusion Posterior Lumbar Fusion Posterior 3 Level, Intrathecal 3 Level, Intrathecal Pain Pump Replace/Revise Pain Pump Replace/Revise Other Attendee [facility] Superficial Wound Closed By: Last Modified By: ROBY MORROW, ROBY BLACKBURN, RN 07/25/19 14:38:13 07/25/19 14:38:13 [facility] IntraOp Case Attendance Audit 07/25/19 14:38:13 Reinsurance Analyst: GOYO Modifier: [email or web address] 1 <+> Time Out [...] Level, Intrathecal Pain Pump Replace/Revise 07/25/19 14:09:37 Reinsurance Analyst: [email or web address] Modifier: WASSONSY 1 <*> Procedure Lumbar [...] Level, Intrathecal Pain Pump Replace/Revise 07/25/19 12:25:06 Reinsurance Analyst: [email or web address] Modifier: [email or web address] <+> 11 Case Attendee <+> 11 Role Performed <+> 11 Time Out <+> 11 Procedure <+> 11 Other Attendee 07/25/19 12:24:05 Reinsurance Analyst: [email or web address] Modifier: [email or web address] 6 <+> Time Out 6 <*> Procedure Lumbar Fusion Posterior 3 Level, Intrathecal Pain Pump Replace/Revise 07/25/19 12:23:46 Reinsurance Analyst: [email or web address] Modifier: [email or web address] 1 <*> Procedure Lumbar [...] Time In <+> 10 Procedure 07/25/19 12:15:49 Reinsurance Analyst: ALBINO Modifier: ALBINO 1 <+> Time In [...] Role Performed <+> 9 Procedure 07/25/19 11:31:28 Reinsurance Analyst: ALBINO Modifier: ALBINO <+> 1 Procedure <+> [...] 8 Role Performed <+> 8 Other Attendee [facility] IntraOp Case Times Entry 1 Patient In Room Time 07/25/19 11:31:00 Out Room Time 07/25/19 14:38:00 Anesthesia Start Time 07/25/19 11:31:00 Stop Time 07/25/19 14:38:00 Surgery / Procedure Times Start Time 07/25/19 12:07:00 Stop Time 07/25/19 14:27:00 Last Modified By: ROBY MORROW RN 07/25/19 14:38:12 [facility] IntraOp Case Times Audit 07/25/19 14:38:12 Reinsurance Analyst: WASSONSY Modifier: WASSONSY <+> 1 Out Room Time <+> 1 Stop Time 07/25/19 14:27:17 Reinsurance Analyst: WASSONSY Modifier: WASSONSY <+> 1 Stop Time 07/25/19 14:19:32 Reinsurance Analyst: WASSONSY Modifier: WASSONSY 1 <-> Stop Time 07/25/19 14:07:00 07/25/19 14:09:32 Reinsurance Analyst: [email or web address] Modifier: WASSONSY <+> 1 Stop Time 07/25/19 12:11:18 Reinsurance Analyst: [email or web address] Modifier: [email or web address] <+> 1 Start Time [facility] IntraOp Cautery Entry 1 Entry 2 ESU Identification Cautery Type Monopolar ESU BiPolar ESU Cautery Type Comments ID Number [id number] ID Type Hospital Number Hospital Number Cautery [...] Charlie D, RN 07/25/19 12:26:32 07/25/19 12:26:32 [facility] IntraOp Communication Entry 1 Communication To Family/Significant other Comment START Communication By Kota Napoles RN Date and Time 07/25/19 12:17:00 Last Modified By: Kota Napoles RN 07/25/19 12:20:31 [facility] IntraOp Counts Verification Entry 1 Procedure Lumbar Fusion Posterior 3 Level, Intrathecal Pain Pump Replace/Revise Count Info Count Type Sponge, Sharps, Miscellaneous Counts Verification Baseline/pre-procedure Sequence Count Results Not Applicable Counts Performed By Count Performed By KENNETH SMITH CST (Scrub) Count Performed By PATRICIA LAMA, RN (RN) Last Modified By: Kota Napoles RN 07/25/19 12:25:25 [facility] IntraOp Counts Final Entry 1 Procedure Lumbar Fusion Posterior 3 Level, Intrathecal Pain Pump Replace/Revise Final Count Info Count Type Sponge, Sharps, Miscellaneous Counts Verification Skin Closure/end of Sequence procedure Count Results Correct, surgeon notified Counts Performed By Count Performed By LUZ ALVAREZ ST (Scrub) Count Performed By Kota Napoles, RN (RN) Last Modified By: ROBY MORROW RN 07/25/19 14:03:34 [facility] IntraOp Cultures and Spec Summary Entry 1 Cultrures and Specimens Specimen Ordered: Yes Test(s) Routine/Path-Lab Requested/Final Disposition Last Modified By: Kota Napoles RN 07/25/19 12:18:15 General Comments: A. EXPLANTED PAIN PUMP [facility] IntraOp Departure from OR Entry 1 Integumentary Assessment Integumentary WDL Assessment WDL Transfer/Handoff Transfer to PACU Phase I Handoff Method Bedside/Face to face, Phone call Handoff Reported to Ml Wilburn RN Post-op Transport Stretcher[place] Via Patient Transport DAT SKINNER, Accompanied by MAC POWERS JUSTIN, PA-C Last Modified By: ROBY MORROW RN 07/25/19 14:04:08 [facility] IntraOp Departure from OR Audit 07/25/19 14:04:08 Reinsurance Analyst: [email or web address] Modifier: WASSONSY 1 <+> Patient Transport Accompanied by 1 <*> Handoff Method Phone call [facility] IntraOp Drains and Tubes Entry 1 Device Type Baltazar Drain Size 15 FR Drain/Tube Activity Inserted Drain/Tube Suction Bulb Drain/Tube Drainage Serosanguineous Device Location OP SITE Method of Drainage Compression Last Modified By: ROBY MORROW RN 07/25/19 13:53:54 [facility] IntraOp Dressing and Packing Entry 1 Type Dressing Location OP SITE Wound Dressing Item Steristrip, Other Applied By NISHANT WATTS PA-C Other Comments NEOSPORIN OINTMENT, STERISTRIPS, COVADERMS Last Modified By: Kota Napoles RN 07/25/19 12:51:25 [facility] IntraOp Fire Risk Assessment Entry 1 Fire Info Surgical Site or 0- No Incision Above the Xyphoid Open O2 Source 0- No (Mask or Cannula) Available Ignition 1- Yes (ESU, Laser, Light Source) Fire Risk 1 Assessment Score Fire Score Fire Risk Yes Assessment Complete Fire Risk Kota Napoles, woodyard crane operator Verified By Fire Risk 07/25/19 11:29:00 Assessment Verified Date/Time Fire Risk Standard Fire Yes Safety Precautions Followed Last Modified By: Kota Napoles RN 07/25/19 12:16:13 [facility] IntraOp General Case Internet Marketing Director 1 Case Information OR OR 10 [facility] Case Level 1 Room Verified Yes Wound Class I - Clean Specialty SN Neurosurgery Anesthesia Type General ASA Class 3 Diagnosis Preop Diagnosis LUMBAR RADICULOPATHY Postop Same As Preop No Postop Diagnosis SEE MD POST OP NOTES Last Modified By: Kota Napoles RN 07/25/19 12:17:04 [facility] IntraOp Implant Log Entry 1 Entry 2 Entry 3 Type Tissue Implant Implant (Synthetic) Implant (Synthetic) (Biologic) Implant Log Implant Type Hardware Hardware Tissue Implant Type Other Implant BONE VIVIGEN FRMBLE SCR SPNE SHAHRIAR FIX SCR SPNE SHAHRIAR FIX FEN Identification CELL [id number] Description Implant Quantity 1 2 4 Implant Site OP SITE OP SITE OP SITE Implant Identification Model Number Implant [id number] Identification Serial Number Implant Identification Lot Number Implant Lifenet:Lifenet J&J:Depuy:Depuy Spine J&J:Depuy:Depuy Spine Identification Transplant Srv Factory Engineer Name: Implant [id number] Identification Catalog Number Implant Size Implant Has an Yes Expiration Date Implant Expiration 06/19/20 Date Wasted Radioactive Material Time Implanted Tissue Implant Continue for Tissue Implant Documentation Tissue Identification Number Graft Prep Per Factory Engineer Instructions: Tissue Preparation Method: Reconstitution Solution: Reconstitution Solution Lot Number Reconstitution Solution Expiration Date: Thawing Solution Thawing Solution Lot Number Thawing Solution Expiration Date Preparation Materials, Other Preparation Materials, Other Lot Number Preparation Materials, Other Expiration Date Tissue Prepared/Processed By Factory Engineer Paperwork Completed Implant Type Comment Last Modified By: ROBY MORROW RN WASSON, SANDRA D, RN WASSON, SANDRA D, RN 07/25/19 13:25:36 07/25/19 13:59:42 07/25/19 13:59:42 Entry 4 Entry 5 Entry 6 Type Implant (Synthetic) Implant (Synthetic) Implant (Synthetic) Implant Log Implant Type Hardware Hardware Hardware Tissue Implant Type Implant SCR SPNE SHAHRIAR FIX SCR ILIAM 8MM X 90MM CEMENT SPINAL Identification [id number] Description Implant Quantity 2 2 1 Implant Site OP SITE OP SITE OP SITE Implant Identification Model Number Implant Identification Serial Number Implant Identification Lot Number Implant J&J:Depuy:Depuy Spine J&J:Depuy:Depuy Spine J&J:Depuy:Depuy Spine Identification Factory Engineer Name: Implant [id number] Identification Catalog Number Implant Size Implant Has an Expiration Date Implant Expiration Date Wasted Radioactive Material Time Implanted Tissue Implant Continue for Tissue Implant Documentation Tissue Identification Number Graft Prep Per Factory Engineer Instructions: Tissue Preparation Method: Reconstitution Solution: Reconstitution Solution Lot Number Reconstitution Solution Expiration Date: Thawing Solution Thawing Solution Lot Number Thawing Solution Expiration Date Preparation Materials, Other Preparation Materials, Other Lot Number Preparation Materials, Other Expiration Date Tissue Prepared/Processed By Factory Engineer Paperwork Completed Implant Type Comment Last Modified By: ROBY MORROW RN WASSON, SANDRA D, RN WASSON, SANDRA D, RN 07/25/19 13:59:42 07/25/19 13:59:42 07/25/19 13:59:42 Entry 7 Entry 8 Entry 9 Type Implant (Synthetic) Implant (Synthetic) Implant (Synthetic) Implant Log Implant Type Hardware Hardware Hardware Tissue Implant Type Implant JENN SURG FENESTRATE RIZWANA PRE LOAD [id number] MIS JENN PLY SCRW SET Identification [id number] Description Implant Quantity 1 2 10 Implant Site OP SITE OP SITE OP SITE Implant Identification Model Number Implant Identification Serial Number Implant Identification Lot Number Implant J&J:Depuy J&J:Depuy:Depuy Spine J&J:Depuy:Depuy Spine Identification Factory Engineer Name: Implant [id number] Identification Catalog Number Implant Size Implant Has an Expiration Date Implant Expiration Date Wasted Radioactive Material Time Implanted Tissue Implant Continue for Tissue Implant Documentation Tissue Identification Number Graft Prep Per Factory Engineer Instructions: Tissue Preparation Method: Reconstitution Solution: Reconstitution Solution Lot Number Reconstitution Solution Expiration Date: Thawing Solution Thawing Solution Lot Number Thawing Solution Expiration Date Preparation Materials, Other Preparation Materials, Other Lot Number Preparation Materials, Other Expiration Date Tissue Prepared/Processed By Factory Engineer Paperwork Completed Implant Type Comment Last Modified By: ROBY MORROW RN WASSON, SANDRA D, ROBY BLACKBURN RN 07/25/19 13:59:42 07/25/19 13:59:42 07/25/19 13:59:42 Entry 10 Type Implant (Synthetic) Implant Log Implant Type Hardware Tissue Implant Type Implant RIZWANA PRE-LORD W/LINE Identification [id number] Description Implant Quantity 1 Implant Site OP SITE Implant Identification Model Number Implant Identification Serial Number Implant Identification Lot Number Implant J&J:Depuy:Depuy Spine Identification Factory Engineer Name: Implant [id number] Identification Catalog Number Implant Size Implant Has an Expiration Date Implant Expiration Date Wasted Radioactive Material Time Implanted Tissue Implant Continue for Tissue Implant Documentation Tissue Identification Number Graft Prep Per Factory Engineer Instructions: Tissue Preparation Method: Reconstitution Solution: Reconstitution Solution Lot Number Reconstitution Solution Expiration Date: Thawing Solution Thawing Solution Lot Number Thawing Solution Expiration Date Preparation Materials, Other Preparation Materials, Other Lot Number Preparation Materials, Other Expiration Date Tissue Prepared/Processed By Factory Engineer Paperwork Completed Implant Type Comment Last Modified By: ROBY MORROW RN 07/25/19 13:59:42 [facility] IntraOp Implant Log Audit 07/25/19 13:59:42 Reinsurance Analyst: WASCLARI Modifier: WASSONSY <+> 2 Implant Identification Description <+> 2 Implant Identification Factory Engineer Name: <+> 2 Implant Site <+> 2 Implant Quantity <+> 2 Implant Identification Catalog Number <+> 2 Implant Type <+> 2 Type <+> 3 Implant Identification Description <+> 3 Implant Identification Factory Engineer Name: <+> 3 Implant Site <+> 3 Implant Quantity <+> 3 Implant Identification Catalog Number <+> 3 Implant Type <+> 3 Type <+> 4 Implant Identification Description <+> 4 Implant Identification Factory Engineer Name: <+> 4 Implant Site <+> 4 Implant Quantity <+> 4 Implant Identification Catalog Number <+> 4 Implant Type <+> 4 Type <+> 5 Implant Identification Description <+> 5 Implant Identification Factory Engineer Name: <+> 5 Implant Site <+> 5 Implant Quantity <+> 5 Implant Identification Catalog Number <+> 5 Implant Type <+> 5 Type <+> 6 Implant Identification Description <+> 6 Implant Identification Factory Engineer Name: <+> 6 Implant Site <+> 6 Implant Quantity <+> 6 Implant Identification Catalog Number <+> 6 Implant Type <+> 6 Type <+> 7 Implant Identification Description <+> 7 Implant Identification Factory Engineer Name: <+> 7 Implant Site <+> 7 Implant Quantity <+> 7 Implant Identification Catalog Number <+> 7 Implant Type <+> 7 Type <+> 8 Implant Identification Description <+> 8 Implant Identification Factory Engineer Name: <+> 8 Implant Site <+> 8 Implant Quantity <+> 8 Implant Identification Catalog Number <+> 8 Implant Type <+> 8 Type <+> 9 Implant Identification Description <+> 9 Implant Identification Factory Engineer Name: <+> 9 Implant Site <+> 9 Implant Quantity <+> 9 Implant Identification Catalog Number <+> 9 Implant Type <+> 9 Type <+> 10 Implant Identification Description <+> 10 Implant Identification Factory Engineer Name: <+> 10 Implant Site <+> 10 Implant Quantity <+> 10 Implant Identification Catalog Number <+> 10 Implant Type <+> 10 Type [facility] IntraOp Intraoperative Assessment Entry 1 Handoff Method [...] Modified By: Kota Napoles RN 07/25/19 12:26:55 [facility] IntraOp Intraoperative Equipment Entry 1 Type Equipment Equipment Equipment Anna Suction System ID Number [id number] Setting 200 MM HG Intraop Monitoring Electrocardiogram Five lead placement (ECG) Electrode Placement Blood Pressure Non-Invasive BP Device Source Antiembolic Devices Antiembolic Devices Sequential compression device, knee high Antiembolic Device Bilateral Location Antiembolic Device [id number] ID Number Scopes Photo/Video Documentation Photo No Video No Last Modified By: Kota Napoles RN 07/25/19 12:29:42 [facility] IntraOp Medication Admin Entry 1 Entry 2 Entry 3 Medication/Irrigant Bacitracin 50,00units lidocaine 1% w/ Neosporin 15Gm ointment powder vial epinephrine 1:100,000 - [id number] 30ml vial - [id number] Combo Med List Time Administered Route of ADDED TO NS IRRIGATION LOCAL TOPICAL Administration Dose Dose 92693 20 1 Unit of Measure units ml pkt Volume Administered By GRETA SOTOMAYOR TUTT, MATTHEW PAIGE, SAMMONS, JUSTIN, PA-C MD-SNU MD-SNU Procedure Irrigation Irrigant Volume In Irrigant Volume Out Last Modified By: Kota Napoles RN Byrd, Charlie D, RN Byrd, Charlie D, RN 07/25/19 12:39:47 07/25/19 12:39:47 07/25/19 12:39:47 Entry 4 Entry 5 Entry 6 Medication/Irrigant SEALR AQUAMANTYS BIPLR SPNG SURGFOAM thrombin 5000units 6.0-765879 [id number] topical powder - [id number] Combo Med List Time Administered Route of [...] SPINE vancomycin 1Gm vial - vial - [id number] Combo Med List Time Administered Route of [...] [facility] IntraOp Medication Admin Audit 07/25/19 14:23:06 Reinsurance Analyst: WASSONSY Modifier: WASSONSY 9 <*> Medication/Irrigant vancomycin 1Gm vial - [id number] 9 <*> Medication/Irrigant vancomycin 1Gm vial - [id number] 9 <*> Route of Administration 9 <*> Route of Administration 9 <*> Administered By GRETA SOTOMAYOR MD-SNU 9 <*> Administered By GRETA SOTOMAYOR MD-SNU 9 <*> Dose 9 <*> Dose 9 <*> Unit of Measure 9 <*> Unit of Measure 07/25/19 13:20:09 Reinsurance Analyst: [email or web address] Modifier: WASSONSY 8 <*> Medication/Irrigant 8 [...] of Measure 8 <*> Unit of Measure [facility] IntraOp Patient Positioning Entry 1 Procedure Lumbar [...] Modified By: Kota Napoles RN 07/25/19 12:33:24 [facility] IntraOp Sign In Entry 1 Patient, Site, [...] Modified By: Kota Napoles RN 07/25/19 12:27:33 [facility] IntraOp Sign Out Entry 1 RN Confirmation [...] Modified By: ROBY MORROW RN 07/25/19 14:38:36 [facility] IntraOp Sign Out Audit 07/25/19 14:38:36 Reinsurance Analyst: ALBINO Modifier: WASSONSY <+> 1 OUTCOME STATEMENT: [...] is consistent with measures to prevent infection [facility] IntraOp Skin Prep Entry 1 Procedure Lumbar Fusion Posterior 3 Level, Intrathecal Pain Pump Replace/Revise Prescribed Yes Pre-Surgical Prep Completed Prep Area BACK AFTER ALCOHOL AND HIBICLENS PREP PER DR SOTOMAYOR Intraop Prep Integumentary WD Assessment WD Prep Agents Alcohol, Chlorhexadine gluconate, DuraPrep Prep by Kota Napoles, RN Hair Removal Methods No hair removal performed Last Modified By: Kota Napoles RN 07/25/19 12:28:55 [facility] IntraOp Skin Prep Audit 07/25/19 12:28:55 Reinsurance Analyst: ALBINO Modifier: ALBINO 1 <+> Prep Agents 1 <+> Methods 1 <*> Procedure Lumbar Fusion Posterior 3 Level, Intrathecal Pain Pump Replace/Revise 1 <+> Prep by 1 <+> Integumentary Assessment [facility] IntraOp Surgical Procedures Entry 1 Entry 2 [...] ROBY BLACKBURN, RN 07/25/19 14:27:32 07/25/19 14:27:32 [facility] IntraOp Surgical Procedures Audit 07/25/19 14:27:32 Reinsurance Analyst: WASSONSY Modifier: WASSONSY 1 <*> Procedure Lumbar Fusion Posterior 3 Level 1 <*> Stop 07/25/19 14:07:00 2 <*> Procedure Intrathecal Pain Pump Replace/Revise 2 <*> Stop 07/25/19 14:07:00 07/25/19 14:09:33 Reinsurance Analyst: WASSONSY Modifier: WASSONSY <+> 1 Stop <+> 2 Stop 07/25/19 13:38:04 Reinsurance Analyst: WASSONSY Modifier: WASSONSY 1 <*> Procedure Lumbar Fusion Posterior 3 Level 1 <*> Additional Procedure Description (L3 TO S1 PLIF, ILIAC BOLTS USING AIRO, PAIN PUMP REMOVAL WITH SCREW AUGMENTATION 07/25/19 13:34:19 Reinsurance Analyst: WASSONSY Modifier: WASSONSY 1 <*> Procedure Lumbar Fusion Posterior 3 Level 1 <*> Additional Procedure Description (L3 TO S1 PLIF, ILIAC BOLTS USING AIRO, PAIN PUMP REMOVAL) 07/25/19 13:20:30 Reinsurance Analyst: [email or web address] Modifier: WASSONSY 1 <*> Procedure Lumbar Fusion Posterior 3 Level 1 <*> Additional Procedure Description (L3 TO S1 PLIF, POSS ILIAC BOLTS USING AIRO, PAIN PUMP REMOVAL) [facility] IntraOp Temp Regulation Devices Entry 1 Temp Regulation Temperature Warm blankets, Forced Regulation Device Air Warming device Temperature 89445 Regulation Device Serial/Unit Number Temperature Upper body Regulation Site Temperature Device 43 C Setting Temperature COMBRADHA, DAT P, FIRE MARSHAL REFINERY Regulation Device Applied by Last Modified By: Kota Napoles RN 07/25/19 12:44:48 [facility] IntraOP Time Out Entry 1 Procedure to [...] Modified By: Kota Napoles RN 07/25/19 12:12:18 [facility] IntraOp X-Ray and Images Entry 1 X-Ray/Imaging Type Other Fluoroscopy Type Other Site OP SITE Extended Day Teacher Name GREG BARRAZA X-Ray and Imaging [facility] AIRO Comment INTRAOPERATIVE CT SCANNER Last Modified By: Kota Napoles RN 07/25/19 12:15:24 Case Comments <None> Finalized By: RAMYA YING Document Signatures Signed By: ROBY MORROW RN 07/25/19 14:38 RAMYA YING 07/26/19 10:29 Electronically signed by Levy [facility] Conversion Secretary Administrative Assistant Cerner at 06/02/2022 1:50 PM CDT documented in this encounter Plan of Treatment Not on file documented as of this encounter Visit Diagnoses Not on filedocumented in this encounter
--- OUTSIDE RECORDS SUMMARY | 2024-11-01 10:14 | XMS_ITS | Encounter Summary ---
Author Organization [employer] ([place], [place], [place], [place]) Address [address] [place] [address] Care Team Providers Care Paper Goods Machine Operator Name Role Phone Unavailable Primary Care Provider Unavailabl e Encounter Details Date Type Department Care Team (Late st Contact Info) Description 07/26/2019 Transcribed Document [facility] [place] Family Medicine [address] [place] [address] ProviderIrasema MD [address] [place] [address] Social History Tobacco Use Types [...] : 07/25/2019 06:54 Assisted by, PT : orthotic and prosthetic technician/aide Personal Devices : Personal Devices No [...] SHEILA LI PTA - 07/26/2019 15:05 EDT [facility] Goals Mobility/Bed Mobility LTG PT Grid Goal [...] GUILLERMO NELLY SOSA - 07/26/2019 15:05 EDT [place] PT Charges REFRIGERATION INSTALLER PT Therap. Exercise 15 min-REFRIGERATION INSTALLER : 1 Gait Training Each 15 Min-REFRIGERATION INSTALLER : 1 SHEILA LI PTA - 07/26/2019 15:05 EDT documented in this encounter Plan of Treatment Not on file documented as of this encounter Visit Diagnoses Not on filedocumented in this encounter
--- OUTSIDE RECORDS SUMMARY | 2024-11-01 10:14 | XMS_ITS | Encounter Summary ---
Author Organization [employer] ([place], [place], [place], [place]) Address [address] [place] [address] Care Team Providers Care Health Promoter Name Role Phone Unavailable Primary Care Provider Unavailabl e Encounter Details Date Type Department Care Team (Late st Contact Info) Description 07/26/2019 Transcribed Document [facility] [place] Family Medicine [address] [place] [address] ProviderIrasema MD [address] [place] [address] Social History Tobacco Use Types [...] Insurance 1 Health Plan: MEDICARE Policy Number: [id number] Authorization Number: Insurance 2 Health Plan: [facility] Policy Number: [id number] Authorization Number: Insurance Primary Name : Medicare Authorized Service Begin Date-Primary : 07/25/2019 EDT Historical Authorization Comments-Primary : Comment 1: Pt is scheduled for INPT Lumbar Fusiion Posterior 3 Level Intrathecal Pain Pump replace/revise on 07-25-2019 Medicare: NPR (SANNA MARRERO, Primary Education Professor 07/24/2019 14:59) Addie Ricci Rn-Utilization Review - 07/26/2019 12:01 EDT Electronically signed by Levy, [facility] Conversion Division Head Cerner at 06/02/2022 2:04 PM CDT documented in this encounter Plan of Treatment Not on file documented as of this encounter Visit Diagnoses Not on filedocumented in this encounter
--- OUTSIDE RECORDS SUMMARY | 2024-11-01 10:14 | XMS_ITS | Encounter Summary ---
Author Organization [employer] ([place], [place], [place], [place]) Address [address] [place] [address] Care Team Providers Care Gas Turbine Powerplant Mechanic Helper Name Role Phone Unavailable Primary Care Provider Unavailabl e Encounter Details Date Type Department Care Team (Late st Contact Info) Description 07/27/2019 Transcribed Document [facility] [place] [facility] [place] [address] ProviderIrasema MD [address] [place] [address] Social History Tobacco Use Types [...] Irasema ProviderMD - 07/27/2019 2:56 PM CDT [facility] [address] GUILLERMINA HINOJOSA :1940 Visit Time:07/25/2019 Your Visit Summary Your Care Team Admitting Physician - GRETA SOTOMAYOR MD-YOLI Attending Physician - GRETA SOTOMAYOR MD-U Primary Care Physician - ELISEO VALENCIA MD-[facility] Referring Physician - [facility], NOT LISTED Your Diagnosis Lumbar radiculopathy, [...] PM EDT Comments with x rays at [facility] at 1:45 PM prior to appointment at 2:30 PM Where: [address] [place] [address]- Business (1) Follow Up with GRETA SOTOMAYOR When 08/06/2019 02:00 PM EDT Comments staple removal Where: [address] [place] [address]- Business (1) Medications What How Much [...] these instructions at home: Medicines ??? Take bsrm-cmn-snamyio and prescription medicines only as told by [...] cannot use soap and water, use hand storage battery tester. ? Change your bandage as told by [...] your pee (urine) pale yellow. ? Take yrvh-nup-rteaikd or prescription medicines. ? Eat foods that [...] 05/27/2011 Document Revised: 05/17/2017 Document Reviewed: 05/17/2017 [employer] Interactive Patient Education ?? 2020 [employer]. acetaminophen and oxycodone (a SEET a MIN [...] may report side effects to FDA at 7-436-ZUB-4485. What other drugs will affect acetaminophen and [...] affect acetaminophen and oxycodone, including prescription and crjm-ppx-paysicq medicines, vitamins, and herbal products. Not all [...] to ensure that the information provided by [employer]. ('[employer]') is accurate, up-to-date, and complete, but no guarantee is made to that effect. Drug information contained herein may be time sensitive. [employer] information has been compiled for use by healthcare practitioners and consumers in the [place] and therefore [employer] does not warrant that uses outside of the [place] are appropriate, unless specifically indicated otherwise. [employer] drug information does not endorse drugs, diagnose patients or recommend therapy. [employer] drug information is an informational resource designed [...] effective or appropriate for any given patient. [employer] does not assume any responsibility for any aspect of healthcare administered with the aid of information [employer] provides. The information contained herein is not intended to cover all possible uses, directions, precautions, warnings, drug interactions, allergic reactions, or adverse effects. If you have questions about the drugs you are taking, check with your doctor, nurse or pharmacist. Copyright 3939-1171 [employer]. Version: .. Revision Date: 03/07/2019. cyclobenzaprine (paresh [...] may report side effects to FDA at 4-688-RSW-2233. What other drugs will affect cyclobenzaprine? Using [...] drugs may affect cyclobenzaprine, including prescription and cdta-ady-mboebti medicines, vitamins, and herbal products. Not all [...] to ensure that the information provided by [employer]. ('[employer]') is accurate, up-to-date, and complete, but no guarantee is made to that effect. Drug information contained herein may be time sensitive. [employer] information has been compiled for use by healthcare practitioners and consumers in the [place] and therefore [employer] does not warrant that uses outside of the [place] are appropriate, unless specifically indicated otherwise. [employer] drug information does not endorse drugs, diagnose patients or recommend therapy. [employer] drug information is an informational resource designed [...] effective or appropriate for any given patient. [facility] does not assume any responsibility for any aspect of healthcare administered with the aid of information [facility] provides. The information contained herein is not intended to cover all possible uses, directions, precautions, warnings, drug interactions, allergic reactions, or adverse effects. If you have questions about the drugs you are taking, check with your doctor, nurse or pharmacist. Copyright 6206-9288 [facility] Campus[facility]ia[facility]it[facility] The[facility]. Version: 5.01. Revision Date: 11/09/2017. Emergency Awareness [...] Assistance with quitting is available by contacting 7-761-VBFM-NOW. This is a free resource providing counseling, [...] range between ( 0.0 and 7.0 ) Ware #: 0.64 K/uL -- Normal range between ( 0.16 and 1.00 ) Eos #: 0.19 x10(3)/uL -- Normal range between ( 0.00 and 0.80 ) Ware %: 5.1 % -- Normal range between [...] ) Urine Bilirubin Dipstick: Negative Urine Specific [place]: 1.018 -- Normal range between ( 1.005 [...] was given the opportunity to ask questions. Patient/Commercial Kitchen Service Technician Name: Patient/Commercial Kitchen Service Technician Signature: Relationship to Patient: Clinician/Hospital Commercial Kitchen Service Technician Signature: Date: documented in this encounter Plan of Treatment Not on file documented as of this encounter Visit Diagnoses Not on filedocumented in this encounter
--- OUTSIDE RECORDS SUMMARY | 2024-11-01 10:14 | XMS_ITS | Clinical Summary ---
Author Organization [employer] ([place], [place], [place], [place]) Address [address] [place] [address] Care Team Providers Care Senior Pharmacy Technician Name Role Phone Unavailable Primary [...]
--- OUTSIDE RECORDS SUMMARY | 2024-11-01 10:14 | XMS_ITS | Encounter Summary ---
Author Organization [employer] ([place], [place], [place], [place]) Address [address] [place] [address] Care Team Providers Care Dry Room Operator Name Role Phone Unavailable Primary Care Provider Unavailabl e Encounter Details Date Type Department Care Team (Late st Contact Info) Description 07/27/2019 Transcribed Document [facility] [place] [address] [place] [address] ProviderIraseam MD [address] [place] [address] Social History Tobacco Use Types [...] On: 07/27/2019 16:34 EDT by PERFECTO DONALDSON RN-Ballpoint Pen Cartridge TesterCut Off Machine Helper Progress Note Discharge Arrangements : Patient Post-Acute [...] with D/C Plan? : Yes PERFECTO DONALDSON RN-Ballpoint Pen Cartridge Tester - 07/27/2019 16:34 EDT documented in this encounter Plan of Treatment Not on file documented as of this encounter Visit Diagnoses Not on filedocumented in this encounter
--- OUTSIDE RECORDS SUMMARY | 2024-11-01 10:14 | XMS_ITS | Encounter Summary ---
Author Organization [employer] ([place], [place], [place], [place]) Address [address] [place] [address] Care Team Providers Care Mixer Machine Feeder Name Role Phone Unavailable Primary Care Provider Unavailabl e Encounter Details Date Type Department Care Team (Late st Contact Info) Description 07/19/2019 Transcribed Document [facility] [place] [address] [place] [address] ProviderIrasema MD [address] [place] [address] Social History Tobacco Use Types [...] 07/19/2019 14:21 EDT Electronically signed by [facility] Conversion Tire Technician Cerner at 06/02/2022 1:44 PM CDT documented in this encounter Plan of Treatment Not on file documented as of this encounter Visit Diagnoses Not on filedocumented in this encounter
--- OUTSIDE RECORDS SUMMARY | 2024-11-01 10:14 | XMS_ITS | Encounter Summary ---
Author Organization [employer] ([place], [place], [place], [place]) Address [address] [place] [address] Care Team Providers Care Editor Index Name Role Phone Unavailable Primary Care Provider Unavailabl e Encounter Details Date Type Department Care Team (Late st Contact Info) Description 07/25/2019 Transcribed Document [facility] Radiology [address] [place] [address] Ramon Voss MD [address] [address] Social History Tobacco Use Types [...] is a 78 yo female admitted to [facility] per Dr. Barboza for an L3-S1 PLIF. Preoperatively patient was found to have advanced spondylolisthesis of the lumbar spine and elected surgical intervention after failing conservative treatment. Patient is followed perioperatively while hospitalized for medical management. Patient seen initially in PACU. Alert. [place]. Denies history of CVA, seizures, DVT. No [...] Congestive heart failure Coronary artery disease s/p NE s/p stents GERD - Gastro-esophageal reflux disease H/O Hemorrhoids Hiatal hernia [place]MON (hard of hearing) Hyperlipidemia Hypertension Restless legs [...] distress]. Neurologic: [Awake, alert, and oriented X3, [place] Eye: [PERRL, EOMI, normal conjunctiva]. HENT: [Normocephalic, [place], moist oral mucosa, no scleral icterus Neck: [...]
--- OUTSIDE RECORDS SUMMARY | 2024-11-01 10:14 | XMS_ITS | Encounter Summary ---
Author Organization [employer] ([place], [place], [place], [place]) Address [address] [place] [address] Care Team Providers Care Supervisor Cutting And Boning Name Role Phone Unavailable Primary Care Provider Unavailabl e Encounter Details Date Type Department Care Team (Late st Contact Info) Description 06/25/2019 Transcribed Document [facility] [place] Family Medicine [address] [place] [address] ProviderIrasema MD [address], [place] [id number] Social History Tobacco Use Types Packs/Day Years [...]
--- OUTSIDE RECORDS SUMMARY | 2024-11-01 10:14 | XMS_ITS | Encounter Summary ---
Author Organization [employer] ([place], [place], [place], [place]) Address [address] [place] [address] Care Team Providers Care Cellophane Press Operator Name Role Phone Unavailable Primary Care Provider Unavailabl e Encounter Details Date Type Department Care Team (Late st Contact Info) Description 07/27/2019 Transcribed Document [facility] [place] Family Medicine [address] [place] [address] ProviderIrasema MD [address] [place] [address] Social History Tobacco Use Types [...] these instructions at home: Medicines ??? Take uann-amo-xvvstex and prescription medicines only as told by [...] cannot use soap and water, use hand excavator operator. ? Change your bandage as told by [...] your pee (urine) pale yellow. ? Take ntwk-viz-hckhfeo or prescription medicines. ? Eat foods that [...] 05/27/2011 Document Revised: 05/17/2017 Document Reviewed: 05/17/2017 [employer] Interactive Patient Education ? 2020 [employer]. documented in this encounter Plan of Treatment Not on file documented as of this encounter Visit Diagnoses Not on filedocumented in this encounter
--- OUTSIDE RECORDS SUMMARY | 2024-11-01 10:14 | XMS_ITS | Encounter Summary ---
Author Organization [employer] ([place], [place], [place], [place]) Address [address] [place] [address] Care Team Providers Care Employee Benefits Administrator Name Role Phone Unavailable Primary Care Provider Unavailabl e Encounter Details Date Type Department Care Team (Late st Contact Info) Description 07/25/2019 Transcribed Document [facility] [place] [facility] [place] [address] ProviderIrasema MD [address] [place] [address] Social History Tobacco Use Types [...] Directive Type : Other: general power of employment law attorney Copy Advance Directive Verified/on Chart : [...] Ambulatory Legal Guardian : Unaccompanied Support Person/Patient Sludge Filtration Attendant : Yes Support Person/Pt Rep Name : Patricio Angel son Support Person/Pt Rep Contact Information : [phone] Want Family/Rep/Phys Notified of Admit : No Emergency Contact #1 : Patricio angel Emergency Contact #1 Emergency Contact #1 Relationship : son Emergency Contact #2 : na Emergency Contact #2 Phone Number : nan Emergency Contact #2 Relationship : na` Information Obtained From : Patient Primary Language : Hong Konger Preferred Communication Mode : Verbal Communication Barrier [...] Scale Risk Level : 25-45 Medium Risk [place] Fall Interventions : Adequate lighting, Assistive devices [...] Source : Measured Height Entry Format : Chambers Height, Feet : 5 ft(Converted to: 152 cm, 60 Inch) Height, Inches : 0 Inch(Converted to: 0 ft 0 Inch, 0.00 cm) Clinical Height : 152.4 cm Weight Source : Standing scale Weight Entry Format : Chambers Clinical Dosing Weight : 69.74 kg Weight, Pounds : 153 lb Weight, Ounces : 7 oz Body Surface Area (BSA) : 1.67 m2 Body Mass Index : 30 kg/m2 ([place]) [place] Body Weight : 45 kg Rosalva Kay [...] Rosalva Kay RN - 07/25/2019 16:29 EDT [place] Suicide Severity Rating Scale (C-SSRS) CSSRS Past [...] on TueJuly 24 in at 0930 am Roman Catholic Preference : Cheondoism Spiritual/Cult Concerns/Desires/Needs : Prayer Spiritual/Cultural Needs Comment [...]
--- OUTSIDE RECORDS SUMMARY | 2024-11-01 10:14 | XMS_ITS | Encounter Summary ---
Author Organization [employer] ([place], [place], [place], [place]) Address [address] [place] [address] Care Team Providers Care Fence Installer Foreman Name Role Phone Unavailable Primary Care Provider Unavailabl e Encounter Details Date Type Department Care Team (Late st Contact Info) Description 07/25/2019 Transcribed Document [facility] [place] [address] [place] [address] ProviderIrasema MD [address] [place] [address] Social History Tobacco Use Types [...] AMAYA GARIBAY, PT - 07/26/2019 11:12 EDT Salesperson Books Goals Mobility/Bed Mobility LTG PT Grid Goal [...] AMAYA GARIBAY PT - 07/26/2019 11:12 EDT Electronically signed by Suze Lockett Conversion Computer Applications Developer Cerner at 06/02/2022 1:54 PM CDT documented in this encounter Plan of Treatment Not on file documented as of this encounter Visit Diagnoses Not on filedocumented in this encounter
--- OUTSIDE RECORDS SUMMARY | 2024-11-01 10:14 | XMS_ITS | Encounter Summary ---
Author Organization [employer] ([place], [place], [place], [place]) Address [address] [place] [address] Care Team Providers Care Traffic Counter Name Role Phone Unavailable Primary Care Provider Unavailabl e Encounter Details Date Type Department Care Team (Late st Contact Info) Description 07/25/2019 Transcribed Document [facility] [place] [facility] [place] [place] [address] ProviderIrasema MD [address] [place] [address] Social History Tobacco Use Types [...]
--- OUTSIDE RECORDS SUMMARY | 2024-11-01 10:14 | XMS_ITS | Encounter Summary ---
Author Organization [employer] ([place], [place], [place], [place]) Address [address] [place] [address] Care Team Providers Care Construction Economist Name Role Phone Unavailable Primary Care Provider Unavailabl e Encounter Details Date Type Department Care Team (Late st Contact Info) Description 06/25/2019 Transcribed Document [facility] [place] [facility] [place] [address] ProviderIrasema MD [address] [place] [address] Social History Tobacco Use Types [...] On: 06/25/2019 13:38 EDT by KALYAN HASSAN, rn womens health Documentation Discharge Date/Time : 06/25/2019 14:45 EDT [...]
--- OUTSIDE RECORDS SUMMARY | 2024-11-01 10:14 | XMS_ITS | Encounter Summary ---
Author Organization [employer] ([place], [place], [place], [place]) Address [address] [place] [address] Care Team Providers Care Second Helper Name Role Phone Unavailable Primary Care Provider Unavailabl e Encounter Details Date Type Department Care Team (Late st Contact Info) Description 06/25/2019 Transcribed Document [facility] [place] [address] [place] [address] ProviderIrasema MD [address] [place] [address] Social History Tobacco Use Types [...]
--- OUTSIDE RECORDS SUMMARY | 2024-11-01 10:14 | XMS_ITS | Encounter Summary ---
Author Organization [employer] ([place], [place], [place], [place]) Address [address] [place] [address] Care Team Providers Care Fruit Harvest Worker Name Role Phone Unavailable Primary Care Provider Unavailabl e Encounter Details Date Type Department Care Team (Late st Contact Info) Description 07/25/2019 Transcribed Document [facility] Neurology - [address] [facility] [address] [place] [address] Sebastián Barboza MD [address] [facility] [address] [place] [address] Social History Tobacco Use Types [...] : 1940 Associated Diagnoses: None Author: AKILAH LOVELACE, SUPERVISOR SCOURING PADS Chief Complaint back, paolo LE pain Review [...] All Problems Skin cancer / SNOMED CT 9069891132 / Confirmed Restless legs syndrome / SNOMED CT 40749395 / Confirmed Hypertension / SNOMED CT 69424547 / Confirmed Hyperlipidemia / SNOMED CT 34126316 / Confirmed Hiatal hernia / SNOMED CT 814024009 / Confirmed H/O Hemorrhoids / SNOMED CT 369509000 / Confirmed PRAIRIE BAND (hard of hearing) / SNOMED CT 64139585 / Confirmed GERD - Gastro-esophageal reflux disease / SNOMED CT 7083377958 / Confirmed Shortness of breath / SNOMED CT 465137118 / Confirmed Coronary artery disease s/p NH s/p stents / SNOMED CT 1876827757 / Confirmed Congestive heart failure / SNOMED CT 76898959 / Confirmed Back pain radiates down both legs R> L / SNOMED CT 2186277408 / Confirmed AICD (automatic cardioverter/defibrillator) present St Rasheed / SNOMED CT 2581143247 / Confirmed At risk for sleep apnea / IMO 40717429 / Confirmed Arthritis / SNOMED CT 1477157 / Confirmed Angina / SNOMED CT 579612005 / Confirmed, Active Problems (16) AICD (automatic cardioverter/defibrillator) present St Rasheed Angina Arthritis At risk for sleep apnea Back pain radiates down both legs R> L Congestive heart failure Coronary artery disease s/p NH s/p stents GERD - Gastro-esophageal reflux disease H/O Hemorrhoids Hiatal hernia PRAIRIE BAND (hard of hearing) Hyperlipidemia Hypertension Restless legs [...] Extraocular movements are intact, glasses. HENT: Normocephalic, PRAIRIE BAND, paolo aids. Neck: Supple, Non-tender. Respiratory: Lungs are clear to auscultation, Respirations are non-labored. Cardiovascular: Normal rate, Regular rhythm, No murmur, No gallop, No edema, L pacemaker/defibrillator. Gastrointestinal: Soft, Non-tender. Genitourinary: No costovertebral angle tenderness. Lymphatics: No lymphadenopathy neck, axilla, groin. Musculoskeletal: painful ROM back, RLE weakness, R lower back pain pump. Integumentary: Warm, Dry, [place]. Neurologic: Alert, Oriented. Psychiatric: Cooperative, Appropriate mood [...]
--- OUTSIDE RECORDS SUMMARY | 2024-11-01 10:14 | XMS_ITS | Encounter Summary ---
Author Organization [employer] ([place], [place], [place], [place]) Address [address] [place] [address] Care Team Providers Care Wink Cutter Operator Name Role Phone Unavailable Primary Care Provider Unavailabl e Encounter Details Date Type Department Care Team (Late st Contact Info) Description 07/25/2019 Transcribed Document [facility] [place] Medicine [address] [place] [address] ProviderIrasema MD [address] [place] [address] Social History Tobacco Use Types [...] Ugarte STUDENT-OCCUPATIONAL THERAPIST - 07/26/2019 13:55 EDT Snf Goals, OT Grooming LTG Grid Goal #1 [...]
--- OUTSIDE RECORDS SUMMARY | 2024-11-01 10:14 | XMS_ITS | Encounter Summary ---
Author Organization [employer] ([place], [place], [place], [place]) Address [address] [place] [address] Care Team Providers Care Butcher Chicken And Fish Name Role Phone Unavailable Primary Care Provider Unavailabl e Encounter Details Date Type Department Care Team (Late st Contact Info) Description 07/19/2019 Transcribed Document [facility] [place] Medicine [facility] [place] [address] ProviderIrasema MD [address] [place] [address] Social History Tobacco Use Types [...] Source : Measured Height Entry Format : [place] Height, Feet : 5 ft(Converted to: 152 cm, 60 Inch) Height, Inches : 0 Inch(Converted to: 0 ft 0 Inch, 0.00 cm) Clinical Height : 152.4 cm Weight Source : Standing scale Weight Entry Format : [place] Clinical Dosing Weight : 69.74 kg Weight, Pounds : 153 lb Weight, Ounces : 7 oz Body Surface Area (BSA) : 1.67 m2 Body Mass Index : 30 kg/m2 (HI) [place] Body Weight : 45 kg MARY ANN [...] Directive Type : Other: general power of trade mark attorney MARY ANN CALVERT RN - 07/19/2019 12:59 EDT Spiritual/Cultural Needs Any Spiritual/Cultural Needs or Requests : Yes Spiritual/Cultural Needs Comment : surgery on TueJuly 24 in at 0930 am Spiritual/Cult Concerns/Desires/Needs : Prayer Spiritual/Cultural Needs Comment : surgery on TueJuly 24 in at 0930 am MARY ANN CALVERT RN - 07/19/2019 12:59 EDT [place] Suicide Severity Rating Scale (C-SSRS) CSSRS Past [...] Ambulatory Legal Guardian : Son Support Person/Patient Surveyor Rod Helper : Yes Support Person/Pt Rep Name : Patricio Angel son Support Person/Pt Rep Contact Information : [phone] Want Family/Rep/Phys Notified of Admit : No Emergency Contact #1 : Patricio angel Emergency Contact #1 Emergency Contact #1 Relationship : son Emergency Contact #2 : na Emergency Contact #2 Phone Number : laverne Emergency Contact #2 Relationship : na` Information Obtained From : Patient Primary Language : Swedish Preferred Communication Mode : Verbal Communication Barrier [...]
--- OUTSIDE RECORDS SUMMARY | 2024-11-01 10:14 | XMS_ITS | Encounter Summary ---
Author Organization [employer] ([place], [place], [place], [place]) Address [address] [place] [address] Care Team Providers Care Reinforced Ironworker Name Role Phone Unavailable Primary Care Provider Unavailabl e Encounter Details Date Type Department Care Team (Late st Contact Info) Description 07/26/2019 Transcribed Document [facility] [place] [address] [place] [address] ProviderIrasema MD [address] [place] [address] Social History Tobacco Use Types [...]
--- OUTSIDE RECORDS SUMMARY | 2024-11-01 10:14 | XMS_ITS | Encounter Summary ---
Author Organization [employer] ([place], [place], [place], [place]) Address [address] [place] [address] Care Team Providers Care License Registration Examiner Name Role Phone Unavailable Primary Care Provider Unavailabl e Encounter Details Date Type Department Care Team (Late st Contact Info) Description 07/25/2019 Transcribed Document [facility] [place] [address] [place] [address] ProviderIrasema MD [address] [place] [address] Social History Tobacco Use Types [...] Historical ProviderMD - 07/25/2019 12:07 PM CDT [facility] Main OR Preop Summary Primary Physician: GRETA SOTOMAYOR MD-SNU Finalized Date/Time: 07/25/19 14:37:09 Pt. Name: GUILLERMINA PEARCE D.O.B./Sex: 1940 Female Med Rec #: [id number] Physician: GRETA SOTOMAYOR MD-SNU Financial #: [id number] Pt. Type: I Room/Bed: ASA/3 Admit/Disch: 07/25/19 06:54:00 - Institution: [facility] PreOp Case Times Entry 1 In Preop 07/25/19 09:09:00 Ready for Holding n/a Room Patient Ready for 07/25/19 10:50:00 Surgery Patient Out of Preop 07/25/19 11:25:00 Patient Out of n/a Holding Room Last Modified By: Cindy Arevalo RN 07/25/19 14:37:08 [facility] PreOp Case Times Audit 07/25/19 14:37:08 Graduate Nurse: [id number] Modifier: CINDRIM <+> 1 Patient Out of Preop Finalized By: Cindy Arevalo RN Document Signatures Signed By: Cindy Arevalo RN 07/25/19 14:37 Electronically signed by [facility] Conversion Cloth Shearing Supervisor Cerner at 06/02/2022 2:00 PM CDT documented in this encounter Plan of Treatment Not on file documented as of this encounter Visit Diagnoses Not on filedocumented in this encounter
--- OUTSIDE RECORDS SUMMARY | 2024-11-01 10:14 | XMS_ITS | Encounter Summary ---
Author Organization [employer] ([place], [place], [place], [place]) Address [address] [place] [address] Care Team Providers Care Customer Marketing Assistant Name Role Phone Unavailable Primary Care Provider Unavailabl e Encounter Details Date Type Department Care Team (Late st Contact Info) Description 07/26/2019 Transcribed Document [facility] [address] [place] [address] Ramon Voss MD 10[address] [facility] [address] [place] [address] Social History Tobacco Use Types [...] S: Patient found sitting up in bed. [place]. A/O. Reports pain is adequately controlled without pain or numbness to LEs. Ambulated 140ft with rolling walker and minimal assist this morning. Denies cough, dyspnea, fever, n/v. Bowels have not yet moved but patient is passing gas. Abebe recently removed. Patient has not yet urinated since removal. HPI: Patient is a 78 yo female admitted to per Dr. Barboza for an L3-S1 PLIF. Preoperatively patient was found to have advanced spondylolisthesis of the lumbar spine and elected surgical intervention after failing conservative treatment. Patient is followed perioperatively while hospitalized for medical management. Patient seen initially in PACU. Alert. [place]. Denies history of CVA, seizures, DVT. No [...] Congestive heart failure Coronary artery disease s/p [place] s/p stents GERD - Gastro-esophageal reflux disease H/O Hemorrhoids Hiatal hernia [place] (hard of hearing) Hyperlipidemia Hypertension Restless legs [...] distress]. Neurologic: [Awake, alert, and oriented X3, [place] Eye: [PERRL, EOMI, normal conjunctiva]. HENT: [Normocephalic, [place], moist oral mucosa, no scleral icterus Neck: [...]
--- OUTSIDE RECORDS SUMMARY | 2024-11-01 10:14 | XMS_ITS | Encounter Summary ---
Author Organization [employer] ([place], [place], [place], [place]) Address [address] [place] [address] Care Team Providers Care Credit Correspondence Clerk Name Role Phone Unavailable Primary Care Provider Unavailabl e Encounter Details Date Type Department Care Team (Late st Contact Info) Description 07/27/2019 Transcribed Document [facility] [place] [facility] [place] [address] ProviderIrasema MD [address] [place] [address] Social History Tobacco Use Types [...] ProviderMD - 07/27/2019 3:12 PM CDT [place] [address] GUILLERMINA HINOJOSA :1940 Visit Time:07/25/2019 Your Visit Summary Your Care Team Admitting Physician - GRETA SOTOMAYOR MD-YOLI Attending Physician - GRETA SOTOMAYOR MD-U Primary Care Physician - ELISEO VALENCIA MD-[facility] Referring Physician - [facility], NOT LISTED Your Diagnosis Lumbar radiculopathy, [...] PM EDT Comments with x rays at [facility] at 1:45 PM prior to appointment at 2:30 PM Where: [address] [place] [address]- Business (1) Follow Up with GRETA SOTOMAYOR When 08/06/2019 02:00 PM EDT Comments staple removal Where: [address] [place] [address] Business (1) Medications What How Much [...] these instructions at home: Medicines ??? Take tddq-fvj-gzuaytr and prescription medicines only as told by [...] cannot use soap and water, use hand histopathologist. ? Change your bandage as told by [...] your pee (urine) pale yellow. ? Take yqcq-pcr-piumkna or prescription medicines. ? Eat foods that [...] 05/27/2011 Document Revised: 05/17/2017 Document Reviewed: 05/17/2017 [employer] Interactive Patient Education ?? 2020 Therabiol. acetaminophen and oxycodone (a SEET a MIN [...] may report side effects to FDA at 6-889-OSQ-4283. What other drugs will affect acetaminophen and [...] affect acetaminophen and oxycodone, including prescription and zieg-lsg-bhkrack medicines, vitamins, and herbal products. Not all [...] to ensure that the information provided by [employer]. ('Mult[employer]') is accurate, up-to-date, and complete, but no guarantee is made to that effect. Drug information contained herein may be time sensitive. [employer] information has been compiled for use by healthcare practitioners and consumers in the [place] and therefore [employer] does not warrant that uses outside of the [place] are appropriate, unless specifically indicated otherwise. [employer] drug information does not endorse drugs, diagnose patients or recommend therapy. [employer] drug information is an informational resource designed [...] effective or appropriate for any given patient. [employer] does not assume any responsibility for any aspect of healthcare administered with the aid of information [employer] provides. The information contained herein is not intended to cover all possible uses, directions, precautions, warnings, drug interactions, allergic reactions, or adverse effects. If you have questions about the drugs you are taking, check with your doctor, nurse or pharmacist. Copyright 8993-4277 [employer]. Version: .. Revision Date: 03/07/2019. cyclobenzaprine (paresh [...] may report side effects to FDA at 3-591-WAO-9536. What other drugs will affect cyclobenzaprine? Using [...] drugs may affect cyclobenzaprine, including prescription and ildv-ekc-hexqehp medicines, vitamins, and herbal products. Not all [...] to ensure that the information provided by [employer]. ('[employer]') is accurate, up-to-date, and complete, but no guarantee is made to that effect. Drug information contained herein may be time sensitive. [employer] information has been compiled for use by healthcare practitioners and consumers in the [place] and therefore [employer] does not warrant that uses outside of the [place] are appropriate, unless specifically indicated otherwise. [employer] drug information does not endorse drugs, diagnose patients or recommend therapy. [employer] drug information is an informational resource designed [...] effective or appropriate for any given patient. [employer] does not assume any responsibility for any aspect of healthcare administered with the aid of information [employer] provides. The information contained herein is not intended to cover all possible uses, directions, precautions, warnings, drug interactions, allergic reactions, or adverse effects. If you have questions about the drugs you are taking, check with your doctor, nurse or pharmacist. Copyright 3576-6542 [employer]. Version: 5.01. Revision Date: 11/09/2017. Emergency Awareness [...] Assistance with quitting is available by contacting 4-978-YTLVNOW. This is a free resource providing counseling, [...] range between ( 0.0 and 7.0 ) [place] #: 0.64 K/uL -- Normal range between ( 0.16 and 1.00 ) Eos #: 0.19 x10(3)/uL -- Normal range between ( 0.00 and 0.80 ) Freeborn %: 5.1 % -- Normal range between [...] ) Urine Bilirubin Dipstick: Negative Urine Specific [place]: 1.018 -- Normal range between ( 1.005 [...] was given the opportunity to ask questions. Patient/Jewelry Technician Name: Patient/Jewelry Technician Signature: Relationship to Patient: Clinician/Hospital Jewelry Technician Signature: Date: Electronically signed by Levy, [facility] Conversion Cardiopulmonary Technician And Eeg Tech Best at 06/02/2022 1:50 PM CDT documented in this encounter Plan of Treatment Not on file documented as of this encounter Visit Diagnoses Not on filedocumented in this encounter
--- OUTSIDE RECORDS SUMMARY | 2024-11-01 10:14 | XMS_ITS | Encounter Summary ---
Author Organization [employer] ([place], [place], [place], [place]) Address [address] [place] [address] Care Team Providers Care Rehabilitation Aide/Scheduler Name Role Phone Unavailable Primary Care Provider Unavailabl e Encounter Details Date Type Department Care Team (Late st Contact Info) Description 07/25/2019 Transcribed Document [facility] [place] [address] [place] [address] ProviderIrasema MD [address] [place] [address] Social History Tobacco Use Types [...]
--- OUTSIDE RECORDS SUMMARY | 2024-11-01 10:14 | XMS_ITS | Encounter Summary ---
Author Organization [employer] ([place], [place], [place], [place]) Address [address] [place] [address] Care Team Providers Care Loom Changer Name Role Phone Unavailable Primary Care Provider Unavailabl e Encounter Details Date Type Department Care Team (Late st Contact Info) Description 07/26/2019 Transcribed Document [facility] [place] [address] [place] [address] ProviderIrasema MD [address] [place] [address] Social History Tobacco Use Types [...] On: 07/26/2019 16:37 EDT by YRIS RADFORD, Director Of Partnerships Initial Assessment I Previously Documented Living Environment [...] Patient's Home Caregiver Medical Durable Power of Director Of Regional Sales Name : Patricio Angel Legal Guardian : [...]
--- OUTSIDE RECORDS SUMMARY | 2024-11-01 10:14 | XMS_ITS | Encounter Summary ---
Author Organization [employer] ([place], [place], [place], [place]) Address [address] [place] [address] Care Team Providers Care Production Intern Name Role Phone Unavailable Primary Care Provider Unavailabl e Encounter Details Date Type Department Care Team (Late st Contact Info) Description 07/26/[address] [facility] [place] [facility] [place] [address] ProviderIrasema MD [address] [place] [address] Social History Tobacco Use Types [...] : 07/25/2019 06:54 Co-treated by, OT : assistant chief of police (ANESTHESIA ASSOCIATE) Personal Devices : Personal Devices No Devices [...] TESFAYE MARES, OTR/L - 07/27/2019 12:45 EDT Mcc Goals, OT Grooming LTG Grid Goal #1 [...] the text rendition version of the form. [place] OT Charges OT Selfcare/Hm Mgmt Ea 15 Min : 1 OT Ther Activities Ea 15 Min : 1 SUZAN LAKSHMICECILIA MASTERS/Seven - 07/27/2019 12:45 EDT Electronically signed by Suze Lockett Conversion Refrigerator Repair Technician Cerner at 06/02/2022 2:03 PM CDT documented in this encounter Plan of Treatment Not on file documented as of this encounter Visit Diagnoses Not on filedocumented in this encounter
--- OUTSIDE RECORDS SUMMARY | 2024-11-01 10:14 | XMS_ITS | Encounter Summary ---
Author Organization [employer] ([place], [place], [place], [place]) Address [address] [place] [address] Care Team Providers Care Orthopedic Cast Specialist Name Role Phone Unavailable Primary Care Provider Unavailabl e Encounter Details Date Type Department Care Team (Late st Contact Info) Description 07/25/2019 Transcribed Document [facility] [address] [place] [address] ProviderIrasema MD [address] [place] [address] Social History Tobacco Use Types Packs/Day Years [...]
--- OUTSIDE RECORDS SUMMARY | 2024-11-01 10:14 | XMS_ITS | Encounter Summary ---
Author Organization [employer] ([place], [place], [place], [place]) Address [address] [place] [address] Care Team Providers Care Measurement Supervisor Name Role Phone Unavailable Primary Care Provider Unavailabl e Encounter Details Date Type Department Care Team (Late st Contact Info) Description 07/27/2019 Transcribed Document [facility] [place] [address] [place] [address] ProviderIrasema MD [address] [place] [address] Social History Tobacco Use Types [...] On: 07/27/2019 16:34 EDT by PERFECTO DONALDSON RN-Retail Banker Final Discharge Planning Discharge Arrangements : Patient [...] Services (Related/SOC within 3 days)-06 PERFECTO DONALDSON RN-Retail Banker - 07/27/2019 16:34 EDT Final Narrative Note Final Narrative Note : DC orders noted. Met with pt and son at bedside to discuss DCP. They agree to HH and have no SHIP ENGINES OPERATING ENGINEER preference. Referral sent to [facility] via [employer] and confirmed acceptance with [place] in intake. No other CM needs identified. PERFECTO DONALDSON RN-Retail Banker - 07/27/2019 16:34 EDT documented in this encounter Plan of Treatment Not on file documented as of this encounter Visit Diagnoses Not on filedocumented in this encounter
--- OUTSIDE RECORDS SUMMARY | 2024-11-01 10:14 | XMS_ITS | Encounter Summary ---
Author Organization [employer] ([place], [place], [place], [place]) Address [address] [place] [address] Care Team Providers Care Industrial Equipment Wirer Name Role Phone Unavailable Primary Care Provider Unavailabl e Encounter Details Date Type Department Care Team (Late st Contact Info) Description 07/25/2019 Transcribed Document [facility] Neurology - [address] [facility] [address] [place] [address] Sebastián Barboza MD 10[address] [facility] [address] [place] [address] Social History Tobacco Use Types [...] 6. Intraoperative CT scan with stereotactic navigation. FINANCIAL ACCOUNTING ANALYST: Salvador Suarez PA-C TYPE OF ANESTHESIA: GEA. [...] stereotactic navigation, the usual freehand techniques, the First Aid Shot Therapy system, pedicle screws were placed at L3, [...] 300 mL. DRAINS: Frank Anthony. COMPLICATIONS: None. /[id number] Sebastián Barboza MD MPT/AQ / MPT / MODL /[id number] CC: Heath Rogers Dr documented in this encounter Plan of Treatment Not on file documented as of this encounter Visit Diagnoses Not on filedocumented in this encounter
--- OUTSIDE RECORDS SUMMARY | 2024-11-01 10:14 | XMS_ITS | Encounter Summary ---
Author Organization [employer] ([place], [place], [place], [place]) Address [address] [place] [address] Care Team Providers Care Platform Operations Director Name Role Phone Unavailable Primary Care Provider Unavailabl e Encounter Details Date Type Department Care Team (Late st Contact Info) Description 07/27/2019 Transcribed Document [facility] Neurology - [address] [facility] [facility] [address] [place] [address] Sebastián Barboza MD 10[address] [facility] [address] [place] [address] Social History Tobacco Use Types [...] and intact. GIAN with 115cc shift production associate, serous drainage in bulb. Ambulated with PT [...]
--- OUTSIDE RECORDS SUMMARY | 2024-11-01 10:14 | XMS_ITS | Encounter Summary ---
Author Organization [employer] ([place], [place], [place], [place]) Address [address] [place] [address] Care Team Providers Care Scouring Train Operator Name Role Phone Unavailable Primary Care Provider Unavailabl e Encounter Details Date Type Department Care Team (Late st Contact Info) Description 07/24/2019 Transcribed Document [facility] [place] Medicine [address] [place] [address] ProviderIrasema MD [address] [place] [address] Social History Tobacco Use Types [...] On: 07/24/2019 14:59 EDT by SANNA MARRERO City Secretary Primary Insurance Authorization Authorization and Policy Numbers : Insurance 1 Health Plan: MEDICARE Policy Number: [id number] Authorization Number: Insurance 2 Health Plan: ANTH HMOPPO Policy Number: [id number] Authorization Number: Insurance Primary Name : Medicare Authorized Service Begin Date-Primary : 07/25/2019 EDT Authorization Comments-Primary : Pt is scheduled for INPT Lumbar Fusiion Posterior 3 Level Intrathecal Pain Pump replace/revise on 07-25-2019 Medicare: NPR Historical Authorization Comments-Primary : No Authorization Comments Found SANNA MARRERO, City Secretary - 07/24/2019 14:59 EDT documented in this encounter Plan of Treatment Not on file documented as of this encounter Visit Diagnoses Not on filedocumented in this encounter
--- OUTSIDE RECORDS SUMMARY | 2024-11-01 10:14 | XMS_ITS | Encounter Summary ---
Author Organization [employer] ([place], [place], [place], [place]) Address [address] [place] [address] Care Team Providers Care Manager Print Name Role Phone Unavailable Primary Care Provider Unavailabl e Encounter Details Date Type Department Care Team (Late st Contact Info) Description 06/25/2019 Transcribed Document [facility] [place] [address] [place] [address] ProviderIrasema MD [address] [place] [address] Social History Tobacco Use Types [...] including vitamins, herbs, eye drops, creams, and kpcw-bbe-odarcan medicines. ??? Previous problems you or members [...] 09/23/2004 Document Revised: 06/15/2016 Document Reviewed: 11/13/2015 [employer] Interactive Patient Education ? 2019 [employer]i. Spinal Headache A spinal headache is a [...] Follow these instructions at home: ??? Take ahkh-eyr-zuclgca and prescription medicines only as told by [...] 07/23/2002 Document Revised: 03/15/2018 Document Reviewed: 03/15/2018 ElseMemoir Interactive Patient Education ? 2019 [employer]. Cerebrospinal Fluid Leak, Adult Cerebrospinal fluid [...] with your health care providers. ??? Take twie-qtc-rwuhuqh and prescription medicines only as told by [...] 06/11/2016 Document Revised: 08/20/2016 Document Reviewed: 06/11/2016 [employer] Interactive Patient Education ? 2019 [employer] Inc. Lumbar Puncture, Care After This sheet [...] a bad smell. General instructions ??? Take fmdk-shy-mvgvvjz and prescription medicines only as told by [...] 03/16/2017 Elsevier Interactive Patient Education ? 2019 [employer] Inc. Electronically signed by Suze Lockett Conversion Ground Source Heat Pump Technician Cerner at 06/02/2022 1:51 PM CDT documented in this encounter Plan of Treatment Not on file documented as of this encounter Visit Diagnoses Not on filedocumented in this encounter
--- OUTSIDE RECORDS SUMMARY | 2024-11-01 10:14 | XMS_ITS | Encounter Summary ---
Author Organization [employer] ([place], [place], [place], [place]) Address [address] [place] [address] Care Team Providers Care Systems Integrator Name Role Phone Unavailable Primary Care Provider Unavailabl e Encounter Details Date Type Department Care Team (Late st Contact Info) Description 07/26/2019 Transcribed Document [facility] [address] [facility] [address] [place] [address] Greta Sotomayor MD 10[address] [facility] [address] [place] [address] Social History Tobacco Use Types [...] pain control - may need rehab at co depending on mobility - medicine following VTE [...]
--- OUTSIDE RECORDS SUMMARY | 2024-11-01 10:14 | XMS_ITS | Encounter Summary ---
Author Organization [employer] ([place], [place], [place], [place]) Address [address] [place] [address] Care Team Providers Care Roller Staker Name Role Phone Unavailable Primary Care Provider Unavailabl e Encounter Details Date Type Department Care Team (Late st Contact Info) Description 07/27/2019 Transcribed Document [facility] Radiology [address] [place] [address] Ramon Voss MD [address] [address] Social History Tobacco Use Types [...] 1940 Associated Diagnoses: None Author: ONOFRE PERRY, CLOTHING BUSHELER-EDNA cc: medical management s/p L3-S1 PLIF per Dr. Barboza S: Patient found up to bedside recliner eating breakfast. A/O. [place]. LBP is adequately controlled. Ambulating with walker assist with therapy. Eager for discharge home today. Denies cough, dyspnea, fever, n/v or dysuria. Bowels have not yet moved but patient is passing gas and tolerating a po diet. HPI: Patient is a 78 yo female admitted to [facility] per Dr. Barboza for an L3-S1 PLIF. Preoperatively patient was found to have advanced spondylolisthesis of the lumbar spine and elected surgical intervention after failing conservative treatment. Patient is followed perioperatively while hospitalized for medical management. Patient seen initially in PACU. Alert. [place]. Denies history of CVA, seizures, DVT. No [...] Congestive heart failure Coronary artery disease s/p [place] s/p stents GERD - Gastro-esophageal reflux disease H/O Hemorrhoids Hiatal hernia [place] (hard of hearing) Hyperlipidemia Hypertension Restless legs [...] distress]. Neurologic: [Awake, alert, and oriented X3, [place] Eye: [PERRL, EOMI, normal conjunctiva]. HENT: [Normocephalic, [place], moist oral mucosa, no scleral icterus Neck: [...] mg/dL 07/27/2019 04:20 Glucose Level 114 mg/dL CO 07/27/2019 04:20 Calcium Level 8.1 mg/dL LOW 07/27/2019 04:20 Creatinine Level 0.70 mg/dL 07/27/2019 04:20 Cardiac Markers (Current Encounter/Past 24 Hours) No Cardiac Marker Results Found (Past 24 Hours) CBC Results (Current Encounter/Past 24 Hours) WBC 12.5 K/uL CO 07/27/2019 04:11 Hct 26.0 % LOW 07/27/2019 [...]
--- OUTSIDE RECORDS SUMMARY | 2024-11-01 10:15 | XMS_ITS | Clinical Summary ---
Author Organization [facility] Address [address] [place] [address] Care Team Providers Care Material Handler Name Role Phone Reji Price MD Primary Care Provider [phone] Allergies No known active allergies Medications atorvastatin [...] or (1 - 1-dose 75+ series) 2016 [id number] Vaccine (4 - 2024- season) 2024 12/25/2020, [...] age to complete this topic Insurance MEDICARE [facility] Advance Directives * Full Code (Latest Code Status on File) Date Activated Date Inactivated Comments 07/19/2021 11:25 AM 07/20/2021 5:13 PM Question Answer Comments Patient has decision-making capacity? Yes Care Teams Material Handler Relationship Specialty Start Date End Date Reji Price MD [address] [place] [address] #1 #1 SYLVIA Vaughan [address] PCP - General 06/03/22
--- NOTE | 2024-11-01 11:00 | FL_ITS ---
FINAL REPORT CLINICAL HISTORY: dysphagia FT 3:38 17.18 mGy FINDINGS: MODIFIED BARIUM SWALLOW History: Dysphagia. FINDINGS: Fluoroscopy was provided for the speech pathologist to evaluate the swallowing mechanism. The patient was given several different consistencies of barium while the swallow was visualized fluoroscopically. The report of the speech pathologist should be consulted prior to making dietary decisions. Fluoro time: 3 minutes 38 seconds Radiation exposure in Reference air Kerma: 17.18 mGy. IMPRESSION: Modified barium swallow under fluoroscopic guidance. Please see the report of the speech pathologist for more detail. Reviewed, Interpreted and Dictated by Millicent Kramer MD Transcribed by THIEN Kee Authenticated and . [facility]
--- NOTE | 2024-11-01 11:00 | US_ITS ---
FINAL REPORT TECHNIQUE: Real-time grayscale and color ultrasound of the thyroid was performed. CLINICAL HISTORY: subclinical hyperthyroidism FINDINGS: The thyroid gland measures 34 x 15 x 14 mm on the right and 32 x 9 x 10 mm on the left. The isthmus measures 3 mm. The thyroid gland is atrophic, particularly on the left.. Nodules: On the right there are small benign cysts measuring 3 mm or less. On the left there is a 5 mm TR 4 hypoechoic nodule most likely benign based on size. IMPRESSION: Moderate atrophy, particularly of the left. Small nodule left lobe of the thyroid, most likely benign. Reviewed, Interpreted and Dictated by Millcient Kramer MD Transcribed by Jeannette Craig Authenticated and [facility]
--- NOTE | 2024-11-01 11:50 | HMH.SLMBS2 ---
Speech & Language Evaluation Speech/Lang Modified Barium Swallow Start: 11/01/24 11:40 Freq: once Status: Complete Protocol: Document 11/01/24 11:40 DILIP (Rec: 11/01/24 11:50 DILIP [id number]) DIRECTOR OF VITAL STATISTICS Evaluation Information DIRECTOR OF VITAL STATISTICS Evaluation Information Date of Evaluation: 11/01/24 Time of Evaluation: 11:00 Evaluation Type Initial Certification Reason for Referral dysphagia per md order Does Patient Qualify No for Service Qualify/Failure Based on clinical observations made throughout MBSS, Comment mastication/manipulation of bolus and swallowing are WFL. She would benefit from GI referral but no further skilled speech therapy services are warranted at this time. MBS Recommendations Diet Dietary Regular,Thin Liquids Recommendations SL Swallow Alt bite w/sip thru meal,Standard Aspiration Prec., Guidelines Reflux precautions Treatment/Strategies Strategy/Precaution Sitting Upright (90 deg),Double Swallow,No Straw,Small Recommended Bites and Sips,Alternate Liquids/Solids Referral/Other Recommended GI Consult Referrals Comment c/o globus sensation DIRECTOR OF VITAL STATISTICS Patient History Section DIRECTOR OF VITAL STATISTICS Patient History Primary Medical 83-year-old female with a past medical history of History coronary disease, hypertension and high cholesterol who presents at [facility] for MBSS following c/o globus sensation. Noted to have hiatal hernia and esophageal dysmotility per Full Barium completed. CXR clear. Does Patient have No Reflux or GERD? Does Patient Delivery Lead Coughing or Choking Episodes? Does Patient Avoid No Certain Food Textures/ Consistencies? Does Patient Utilize No Compensatory Strategies During Meals? Has Patient Yes Experienced Significant Weight Loss? Does Pt have Hx of No Recurrent Pneumonias or Respiratory Infections? Has Patient Noticed No Change in Vocal Quality? Mod Barium Swallow Study Patient Orientation Patient Orientation Person,Place,Time,Situation Oral Expression No Impairment Ability Ability to Follow Good Directions Is Patient able to Yes Perform Volitional Throat Clear? Is Patient able to Yes Perform Volitional Cough? Is Patient able to Yes Manage Secretions Independently? Mod Barium Swallow Set Up Radiologist Jorgito Abdi Patient Presentation Awake,Alert,Appropriate,Follows Commands : Bolus Consistencies Thin Liquids,Pudding,Puree,Mechanical Soft,Regular,Pill Trialed: (Barium Tablet) MBSS Observations Consistency & Strategy Trial Regular Penetration/ 3 Aspiration Scale PAS Amount Trace Pharyngeal Residual 10-49% Regular Half Bolus Penetration/ 2 Aspiration Scale PAS Amount Trace Pharyngeal Residual 0-9% Mechanical Soft Penetration/ 3 Aspiration Scale PAS Amount Trace Pharyngeal Residual 10-49% Mechanical Soft Half Bolus Penetration/ 2 Aspiration Scale PAS Amount Trace Pharyngeal Residual 0-9% Puree Full Spoon Penetration/ 1 Aspiration Scale PAS Amount Trace Pharyngeal Residual 0-9% Puree Half Spoon Penetration/ 1 Aspiration Scale PAS Amount Neither Pharyngeal Residual 0-9% Pudding Full Spoon Penetration/ 2 Aspiration Scale PAS Amount Trace Pharyngeal Residual 0-9% Pudding Half Spoon Penetration/ 1 Aspiration Scale PAS Amount Trace Pharyngeal Residual 0-9% Thin Subsequent Sips from Straw Penetration/ 1 Aspiration Scale PAS Amount Trace Pharyngeal Residual 0-9% Thin Straw Sip Penetration/ 1 Aspiration Scale PAS Amount Trace Pharyngeal Residual 0-9% Thin Subsequent Sips from Cup Penetration/ 1 Aspiration Scale PAS Amount Neither Pharyngeal Residual 0-9% Thin Open Cup Sip Penetration/ 1 Aspiration Scale PAS Amount Neither Pharyngeal Residual 0-9% Mod Barium Swallow Impressions Oral Phase Summary & Impressions Oral Phase: Minimal Impairment Impression Oral Phase: Labial No Impairment (WFL) Closure Oral Phase: Bolus No Impairment (WFL) Formation Pooling L/ R Oral Phase: Bolus No Impairment (WFL) Formation Under Tongue Oral Phase: Bolus No Impairment (WFL) Formation Scattered Loss Oral Phase: Minimal Impairment Mastication Rotary Chew Oral Phase: Minimal Impairment Mastication Munching Oral Phase: Minimal Impairment Mastication Lateralization Oral Phase: Lingual Minimal Impairment Movement Oral Phase: Residue Minimal Impairment Clearing Pharyngeal Phase Summary & Impressions Pharyngeal Phase: Mild Impairment Impression Pharyngeal Phase: A/ Minimal Impairment P Lingual Propulsion Spills Pharyngeal Phase: Minimal Impairment Swallow Response Delay Pharyngeal Phase: Minimal Impairment Base of Tongue Pharyngeal Phase: Mild Impairment Epiglottic Coverage Pharyngeal Phase: Mild Impairment Laryngeal Elevation Pharyngeal Phase: Mild Impairment Vallecular Retention Clearing Pharyngeal Phase: Minimal Impairment Pharyngeal Wall Residue Clearing Pharyngeal Phase: Minimal Impairment Piriform Sinus Retention Aspiration Aspiration? No Silent Aspiration? No DIRECTOR OF VITAL STATISTICS MBSS Goals MBS Fpc Goals Patient will utilize Double Swallow,No Straws,Alternate Bites & Sips,Sitting compensatory Upright,Small Bites & Sips,Effortful Swallow strategies with PO intake in order to meet nutrition and hydration needs for daily meals without overt signs/symptoms of aspiration. The patient will Regular,Thin Liquids tolerate the least restrictive diet with a safe/ efficient swallow to maintain adequate nutrition and hydration. Education Instructions Discussed MBSS results with pt and family who expressed provided understanding. Reviewed compensatory strategies, diet recommendations, and referral to GI which they both understood as well. Patient/Caregiver Able to recall/restate Able to Recall Information Reinforcement needed No PHYSICIAN CERTIFICATION: I certify the specified therapy services for Guillermina Hinojosa are required, authorized, and reviewed every 30 days.
== END 2024-11-01 23:59 | disposition home or self-care (01) ==
LOC: RAD 10:09
PROVIDERS: PCP Internal Medicine; Visit Provider Internal Medicine
DX: E03.4 Atrophy of thyroid (acquired) (principal); E04.1 Nontoxic single thyroid nodule; R13.10 Dysphagia, unspecified; E05.90 Thyrotoxicosis, unspecified without thyrotoxic crisis or storm
CPT/HCPCS: 74230; 76536; 92611

== ENCOUNTER 2024-11-13 16:20 | Outpatient (CLI) | payer MEDICARE, BC, SELFPAY ==
[2024-11-13 18:12] LABS: Alanine Aminotransferase 16 U/L (12-78); Albumin Level 3.3 g/dl (3.5-5.0); Albumin/Globulin Ratio 1.1 (1.1-1.8); Alkaline Phosphatase 152 U/L (38-126); Anion Gap 13.4 mEq/L (5-15); Aspartate Amino Transferase 36 U/L (14-36); Bilirubin,Total 0.7 mg/dl (0.2-1.3); Blood Urea Nitrogen 8 mg/dl (7-17); Calcium 9.2 mg/dl (8.4-10.2); Carbon Dioxide 29 mmol/L (22.0-30.0); Chloride 99 mmol/L (98-107); Creatinine,Serum 0.70 mg/dl (0.52-1.04); Estimated Glomerular Filt Rate 80 ml/min (>60); GFR (African American) 97 ML/MIN (>60); Globulin 2.9 g/dL (1.3-3.2); Glucose 94 mg/dl (74-100); Magnesium 2.2 mg/dl (1.6-2.3); Potassium 4.4 mmoL/L (3.5-5.1); Sodium 137 mmol/L (136-145); Total Protein,Serum 6.2 g/dl (6.3-8.2)
[2024-11-13 18:30] LABS: Free T4 (Free Thyroxine) 1.02 ng/dl (0.78-2.19)
[2024-11-13 18:45] LABS: Thyroid Stimulating Hormone < 0.02 uIU/mL (0.465-4.68)
--- OUTSIDE RECORDS SUMMARY | 2024-11-14 10:32 | XMS_ITS | Referral Summary ---
Author Organization [employer] ([place], [place], [place], [place]) Address [address] [place] [address] Care Team Providers Care Game Warden Name Role Phone Unavailable Primary Care Provider [...]
--- OUTSIDE RECORDS SUMMARY | 2024-11-14 10:32 | XMS_ITS | Encounter Summary ---
Author Organization [employer] ([place], [place], [place], [place]) Address [address] [place] [address] Care Team Providers Care Sharepoint Net Developer Name Role Phone Unavailable Primary Care Provider Unavailabl e Encounter Details Date Type Department Care Team (Late st Contact Info) Description 07/26/2019 Transcribed Document [facility] [place] [address] [place] [address] ProviderIrasema MD [address] [place] [address] Social History Tobacco Use Types [...] On: 07/26/2019 16:37 EDT by YRIS RADFORD, Electron Tube Assembler Initial Assessment I Previously Documented Living Environment [...] Patient's Home Caregiver Medical Durable Power of Purchasing Supervisor Name : Patricio Angel Legal Guardian : [...]
--- OUTSIDE RECORDS SUMMARY | 2024-11-14 10:32 | XMS_ITS | Encounter Summary ---
Author Organization [employer] ([place], [place], [place]) Address [address] [place] [address] Care Team Providers Care Burn Crew Member Name Role Phone Unavailable Primary Care Provider Unavailabl e Encounter Details Date Type Department Care Team (Late st Contact Info) Description 07/26/2019 Transcribed Document [facility] [address] [facility] [address] [place] [address] Greta Sotomayor MD [address] [facility] [address] [place] [address] Social History Tobacco Use Types [...] pain control - may need rehab at in depending on mobility - medicine following VTE [...]
--- OUTSIDE RECORDS SUMMARY | 2024-11-14 10:32 | XMS_ITS | Encounter Summary ---
Author Organization [employer] ([place], [place], [place], [place]) Address [address] [place] [address] Care Team Providers Care Product Development Actuary Name Role Phone Unavailable Primary Care Provider Unavailabl e Encounter Details Date Type Department Care Team (Late st Contact Info) Description 07/25/2019 Transcribed Document [facility] [place] [address] [place] [address] ProviderIrasema MD [address] [place] [address] Social History Tobacco Use Types Packs/Day Years [...]
--- OUTSIDE RECORDS SUMMARY | 2024-11-14 10:32 | XMS_ITS | Encounter Summary ---
Author Organization [employer] ([place], [place], [place], [place]) Address [address] [place] [address] Care Team Providers Care Septic Tank Servicer Name Role Phone Unavailable Primary Care Provider Unavailabl e Encounter Details Date Type Department Care Team (Late st Contact Info) Description 07/27/2019 Transcribed Document [facility] Radiology [address] [place] [address] Ramon Voss MD [address] [address] Social History Tobacco Use Types [...] 1940 Associated Diagnoses: None Author: ONOFRE PERRY, SITE MANAGER-EDNA cc: medical management s/p L3-S1 PLIF per Dr. Barboza S: Patient found up to bedside recliner eating breakfast. A/O. PAIUTE-SHOSHONE. LBP is adequately controlled. Ambulating with walker assist with therapy. Eager for discharge home today. Denies cough, dyspnea, fever, n/v or dysuria. Bowels have not yet moved but patient is passing gas and tolerating a po diet. HPI: Patient is a 78 yo female admitted to [facility] [place] per Dr. Barboza for an L3-S1 PLIF. Preoperatively patient was found to have advanced spondylolisthesis of the lumbar spine and elected surgical intervention after failing conservative treatment. Patient is followed perioperatively while hospitalized for medical management. Patient seen initially in PACU. Alert. PAIUTE-SHOSHONE. Denies history of CVA, seizures, DVT. No [...] Congestive heart failure Coronary artery disease s/p [place] s/p stents GERD - Gastro-esophageal reflux disease H/O Hemorrhoids Hiatal hernia PAIUTE-SHOSHONE (hard of hearing) Hyperlipidemia Hypertension Restless legs [...] distress]. Neurologic: [Awake, alert, and oriented X3, PAIUTE-SHOSHONE Eye: [PERRL, EOMI, normal conjunctiva]. HENT: [Normocephalic, PAIUTE-SHOSHONE, moist oral mucosa, no scleral icterus Neck: [...] mg/dL 07/27/2019 04:20 Glucose Level 114 mg/dL [place] 07/27/2019 04:20 Calcium Level 8.1 mg/dL LOW 07/27/2019 04:20 Creatinine Level 0.70 mg/dL 07/27/2019 04:20 Cardiac Markers (Current Encounter/Past 24 Hours) No Cardiac Marker Results Found (Past 24 Hours) CBC Results (Current Encounter/Past 24 Hours) WBC 12.5 K/uL [place] 07/27/2019 04:11 Hct 26.0 % LOW 07/27/2019 [...]
--- OUTSIDE RECORDS SUMMARY | 2024-11-14 10:32 | XMS_ITS | Encounter Summary ---
Author Organization [employer] ([place], [place], [place], [place]) Address [address] [place] [address] Care Team Providers Care Hide Measuring Machine Operator Name Role Phone Unavailable Primary Care Provider Unavailabl e Encounter Details Date Type Department Care Team (Late st Contact Info) Description 07/25/2019 Transcribed Document [facility] [place] Family Medicine [address] [place] [address] ProviderIrasema MD [address] [place] [address] Social History Tobacco Use [...] Historical ProviderMD - 07/25/2019 12:07 PM CDT [facility] Main OR PACU Summary Primary Physician: GRETA SOTOMAYOR MD-SNMarco Finalized Date/Time: 07/25/19 17:09:16 Pt. Name: GUILLERMINA PEARCE/Sex: 1940 Female Med Rec #: [id number] Physician: GRETA SOTOMAYOR MD-SN Financial #: [id number] Pt. Type: I Room/Bed: 652/1 Admit/Disch: 07/25/19 06:54:00 - Institution: [facility] Main OR PACU I Case Times Entry 1 In PACU I 07/25/19 14:40:00 Ready for PACU 07/25/19 15:38:00 Discharge Discharge from PACU 07/25/19 16:05:00 I Last Modified By: Ml Wilburn RN 07/25/19 17:08:34 [facility] Main OR PACU I Case Times Audit 07/25/19 17:08:34 Cutter Apprentice Hand: [email or web address] Modifier: [email or web address] <+> 1 Discharge from PACU I Finalized By: Ml Wilburn RN Document Signatures Signed By: Ml Wilburn RN 07/25/19 17:09 documented in this encounter Plan of Treatment Not on file documented as of this encounter Visit Diagnoses Not on filedocumented in this encounter
--- OUTSIDE RECORDS SUMMARY | 2024-11-14 10:32 | XMS_ITS | Encounter Summary ---
Author Organization [employer] ([place], [place], [place], [place]) Address [address] [place] [address] Care Team Providers Care Managing Consultant Name Role Phone Unavailable Primary Care Provider Unavailabl e Encounter Details Date Type Department Care Team (Late st Contact Info) Description 07/27/2019 Transcribed Document [facility] [place] Family Medicine [address] [place] [address] ProviderIrasema MD [address] [place] [address] Social History Tobacco Use Types [...] On: 07/27/2019 16:34 EDT by PERFECTO DONALDSON RN-Note Keeper Final Discharge Planning Discharge Arrangements : Patient [...] Services (Related/SOC within 3 days)-06 PERFECTO DONALDSON RN-Note Keeper - 07/27/2019 16:34 EDT Final Narrative Note Final Narrative Note : DC orders noted. Met with pt and son at bedside to discuss DCP. They agree to HH and have no ENVIRONMENTAL ADVISER preference. Referral sent to [facility] via [facility] and confirmed acceptance with [place] in intake. No other CM needs identified. PERFECTO DONALDSON RN-Note Keeper - 07/27/2019 16:34 EDT Electronically signed by Suze Lockett Conversion Professor Of Environmental Science Cerner at 06/02/2022 1:54 PM CDT documented in this encounter Plan of Treatment Not on file documented as of this encounter Visit Diagnoses Not on filedocumented in this encounter
--- OUTSIDE RECORDS SUMMARY | 2024-11-14 10:32 | XMS_ITS | Encounter Summary ---
Author Organization [employer] ([place], [place], [place]) Address [address] [place] [address] Care Team Providers Care Ham Trimmer Name Role Phone Unavailable Primary Care Provider Unavailabl e Encounter Details Date Type Department Care Team (Late st Contact Info) Description 07/27/2019 Transcribed Document [facility] [place] Medicine [address] [place] [address] ProviderIrasema MD [address] [place], [place] [id number] Social History Tobacco Use Types Packs/Day Years [...]
--- OUTSIDE RECORDS SUMMARY | 2024-11-14 10:32 | XMS_ITS | Encounter Summary ---
Author Organization [employer] ([place], [place], [place], [place]) Address [address] [place] [address] Care Team Providers Care Longwall Shearer Operator Name Role Phone Unavailable Primary Care Provider Unavailabl e Encounter Details Date Type Department Care Team (Late st Contact Info) Description 07/26/2019 Transcribed Document [facility] [place] [address] [place] [address] ProviderIrasema MD [address] [place] [address] Social History Tobacco Use Types [...] Rosalva Kay, RN - 07/26/2019 17:05 EDT Electronically signed by Suze Lockett Conversion Maintenance Engineer Oil Field Cerner at 06/02/2022 1:48 PM CDT documented in this encounter Plan of Treatment Not on file documented as of this encounter Visit Diagnoses Not on filedocumented in this encounter
--- OUTSIDE RECORDS SUMMARY | 2024-11-14 10:32 | XMS_ITS | Encounter Summary ---
Author Organization [employer] ([place], [place], [place], [place]) Address [address] [place] [address] Care Team Providers Care Cutter V Groove Name Role Phone Unavailable Primary Care Provider Unavailabl e Encounter Details Date Type Department Care Team (Late st Contact Info) Description 07/26/2019 Transcribed Document [facility] [place] [facility] [place] [address] ProviderIraseam MD [address] [place] [address] Social History Tobacco Use Types [...] : 07/25/2019 06:54 Co-treated by, OT : media center assistant (CIRCULAR KNIFE MACHINE CUTTER) Personal Devices : Personal Devices No Devices [...] TESFAYE MARES, OTR/L - 07/27/2019 12:45 EDT Crude Oil Treater Goals, OT Grooming LTG Grid Goal #1 [...] the text rendition version of the form. [facility] OT Charges OT Selfcare/Hm Mgmt Ea 15 Min : 1 OT Ther Activities Ea 15 Min : 1 SUZAN LAKSHMICECILIA MASTESR/Seven - 07/27/2019 12:45 EDT documented in this encounter Plan of Treatment Not on file documented as of this encounter Visit Diagnoses Not on filedocumented in this encounter
--- OUTSIDE RECORDS SUMMARY | 2024-11-14 10:32 | XMS_ITS | Encounter Summary ---
Author Organization [employer] ([place], [place], [place], [place]) Address [address] [place] [address] Care Team Providers Care Supervisor Toy Assembly Name Role Phone Unavailable Primary Care Provider Unavailabl e Encounter Details Date Type Department Care Team (Late st Contact Info) Description 06/25/2019 Transcribed Document [facility] [place] Family Medicine [address] [place] [address] ProviderIrasema MD [address] [place] [address] Social History Tobacco Use Types [...]
--- OUTSIDE RECORDS SUMMARY | 2024-11-14 10:32 | XMS_ITS | Encounter Summary ---
Author Organization [employer] ([place], [place], [place], [place]) Address [address] [place] [address] Care Team Providers Care Nuclear Physicist Name Role Phone Unavailable Primary Care Provider Unavailabl e Encounter Details Date Type Department Care Team (Late st Contact Info) Description 06/25/2019 Transcribed Document [facility] [place] [address] [place] [address] ProviderIrasema MD [address] [place] [address] Social History Tobacco Use Types [...] Irasema ProviderMD - 06/25/2019 2:31 PM CDT [facility] [place] [address] GUILLERMINA HINOJOSA :1940 Visit Time:06/25/2019 Your Visit Summary Your Care Team Admitting Physician - GRETA SOTOMAYOR MD-SNU Attending Physician - GRETA SOTOMAYOR MD-SNU Primary Care Physician - ELISEO VALENCIA MD-[facility] Referring Physician - GRETA SOTOMAYOR MD-SNU Your Diagnosis Chronic pain syndrome, Chronic pain syndrome Discharge Vitals Heart Rate (Monitored) 78 Respiratory Rate 20 Blood Pressure 97/57 What to do next Follow-Up Appointments Follow Up with GRETA SOTOMAYOR MD-SNU When Within 2 to 3 days Where: [address] [facility] [address] [place] [address]- Medications What How Much When Instructions Next [...] including vitamins, herbs, eye drops, creams, and kjig-ane-hvkjipn medicines. ??? Previous problems you or members [...] 09/23/2004 Document Revised: 06/15/2016 Document Reviewed: 11/13/2015 [employer] Interactive Patient Education ?? 2019 [employer] Spinal Headache A spinal headache is [...] Follow these instructions at home: ??? Take xpok-ybe-oajrxxn and prescription medicines only as told by [...] 07/23/2002 Document Revised: 03/15/2018 Document Reviewed: 03/15/2018 [employer] Interactive Patient Education ?? 2019 [employer] Cerebrospinal Fluid Leak, Adult Cerebrospinal fluid [...] with your health care providers. ??? Take ifjw-hel-xohkjni and prescription medicines only as told by [...] 06/11/2016 Document Revised: 08/20/2016 Document Reviewed: 06/11/2016 [employer] Interactive Patient Education ?? 2019 [employer] Lumbar Puncture, Care After This sheet [...] a bad smell. General instructions ??? Take iewr-kwp-kvawmqr and prescription medicines only as told by [...] 02/05/2014 Document Revised: 03/16/2017 Document Reviewed: 03/16/2017 [employer] Interactive Patient Education ?? 2019 [employer]. Emergency Awareness and Preventative Care STROKE is [...] Assistance with quitting is available by contacting 8-418-FYCB-NOW. This is a free resource providing counseling, [...] was given the opportunity to ask questions. Patient/Global Supply Chain Vice President Name: Patient/Global Supply Chain Vice President Signature: Relationship to Patient: Clinician/Hospital Global Supply Chain Vice President Signature: Date: documented in this encounter Plan of Treatment Not on file documented as of this encounter Visit Diagnoses Not on filedocumented in this encounter
--- OUTSIDE RECORDS SUMMARY | 2024-11-14 10:32 | XMS_ITS | Encounter Summary ---
Author Organization [employer] ([place], [place], [place], [place]) Address [address] [place] [address] Care Team Providers Care Brush Loader And Handle Attacher Name Role Phone Unavailable Primary Care Provider Unavailabl e Encounter Details Date Type Department Care Team (Late st Contact Info) Description 07/27/2019 Transcribed Document [facility] Family Medicine [address] [place] [address] ProviderIrasema MD [address] [place] [address] Social History Tobacco Use Types [...] these instructions at home: Medicines ??? Take fsoj-jyl-spcnfao and prescription medicines only as told by [...] cannot use soap and water, use hand building energy consultant. ? Change your bandage as told by [...] your pee (urine) pale yellow. ? Take yasx-ggc-tccvkpn or prescription medicines. ? Eat foods that [...] 05/27/2011 Document Revised: 05/17/2017 Document Reviewed: 05/17/2017 [employer] Interactive Patient Education ? 2020 [employer]. documented in this encounter Plan of Treatment Not on file documented as of this encounter Visit Diagnoses Not on filedocumented in this encounter
--- OUTSIDE RECORDS SUMMARY | 2024-11-14 10:32 | XMS_ITS | Encounter Summary ---
Author Organization [employer] ([place], [place], [place], [place]) Address [address] [place] [address] Care Team Providers Care Missile Control Pilot Name Role Phone Unavailable Primary Care Provider Unavailabl e Encounter Details Date Type Department Care Team (Late st Contact Info) Description 06/25/2019 Transcribed Document [facility] [place] [address] [place] [address] ProviderIrasema MD [address], [place] [id number] Social History Tobacco Use Types Packs/Day Years [...]
--- OUTSIDE RECORDS SUMMARY | 2024-11-14 10:32 | XMS_ITS | Encounter Summary ---
Author Organization [employer] ([place], [place], [place], [place]) Address [address] [place] [address] Care Team Providers Care Aboriginal Home School Liaison Officer Name Role Phone Unavailable Primary Care Provider Unavailabl e Encounter Details Date Type Department Care Team (Late st Contact Info) Description 07/26/2019 Transcribed Document [facility] [place] [address] [place] [address] ProviderIrasema MD [address] [place] [address] Social History Tobacco Use Types [...] : 07/25/2019 06:54 Assisted by, PT : information technology security analyst/aide Personal Devices : Personal Devices No Devices [...] SHEILA LI PTA - 07/26/2019 15:05 EDT [facility] Goals Mobility/Bed Mobility LTG PT [...] GUILLERMO NELLY SOSA - 07/26/2019 15:05 EDT [place] PT Charges BILLET RECORDER PT Therap. Exercise 15 min-BILLET RECORDER : 1 Gait Training Each 15 Min-BILLET RECORDER : 1 SHEILA LI PTA - 07/26/2019 15:05 EDT documented in this encounter Plan of Treatment Not on file documented as of this encounter Visit Diagnoses Not on filedocumented in this encounter
--- OUTSIDE RECORDS SUMMARY | 2024-11-14 10:32 | XMS_ITS | Encounter Summary ---
Author Organization [employer] ([place], [place], [place], [place]) Address [address] [place] [address] Care Team Providers Care Music Producer Name Role Phone Unavailable Primary Care Provider Unavailabl e Encounter Details Date Type Department Care Team (Late st Contact Info) Description 07/26/2019 Transcribed Document [facility] Radiology [address] [place] [address] Ramon Voss MD [address] [facility] [address] [place] [address] Social History Tobacco Use Types [...] S: Patient found sitting up in bed. [place]. A/O. Reports pain is adequately controlled without pain or numbness to LEs. Ambulated 140ft with rolling walker and minimal assist this morning. Denies cough, dyspnea, fever, n/v. Bowels have not yet moved but patient is passing gas. Abebe recently removed. Patient has not yet urinated since removal. HPI: Patient is a 78 yo female admitted to [facility] per Dr. Barboza for an L3-S1 PLIF. Preoperatively patient was found to have advanced spondylolisthesis of the lumbar spine and elected surgical intervention after failing conservative treatment. Patient is followed perioperatively while hospitalized for medical management. Patient seen initially in PACU. Alert. [place]. Denies history of CVA, seizures, DVT. No [...] Congestive heart failure Coronary artery disease s/p SC s/p stents GERD - Gastro-esophageal reflux disease H/O Hemorrhoids Hiatal hernia [place] (hard of hearing) Hyperlipidemia Hypertension Restless legs [...] distress]. Neurologic: [Awake, alert, and oriented X3, [place] Eye: [PERRL, EOMI, normal conjunctiva]. HENT: [Normocephalic, [place], moist oral mucosa, no scleral icterus Neck: [...]
--- OUTSIDE RECORDS SUMMARY | 2024-11-14 10:32 | XMS_ITS | Encounter Summary ---
Author Organization [employer] ([place], [place], [place], [place]) Address [address] [place] [address] Care Team Providers Care Area Director Of Home Health Sales Name Role Phone Unavailable Primary Care Provider Unavailabl e Encounter Details Date Type Department Care Team (Late st Contact Info) Description 07/27/2019 Transcribed Document [facility] Neurology - [address] [facility] [address] [place] [address] Sebastián Barboza MD [address] [facility] [address] [place] [address] Social History Tobacco Use Types [...] clean, dry, and intact. GIAN with 115cc mold shifter, serous drainage in bulb. Ambulated with PT [...]
--- OUTSIDE RECORDS SUMMARY | 2024-11-14 10:32 | XMS_ITS | Encounter Summary ---
Author Organization [employer] ([place], [place], [place], [place]) Address [address] [place] [address] Care Team Providers Care Patient Experience Coordinator Name Role Phone Unavailable Primary Care Provider Unavailabl e Encounter Details Date Type Department Care Team (Late st Contact Info) Description 07/27/2019 Transcribed Document [facility] [facility] [place] [address] ProviderIrasema MD [address] [place] [address] Social History Tobacco Use Types [...] SHITAL GUTIERREZ, PT - 07/27/2019 16:36 EDT Cosmetics Machine Operator Goals Mobility/Bed Mobility LTG PT Grid [...]
--- OUTSIDE RECORDS SUMMARY | 2024-11-14 10:32 | XMS_ITS | Encounter Summary ---
Author Organization [employer] ([place], [place], [place], [place]) Address [address] [place] [address] Care Team Providers Care Copier Field Service Technician Name Role Phone Unavailable Primary Care Provider Unavailabl e Encounter Details Date Type Department Care Team (Late st Contact Info) Description 07/27/2019 Transcribed Document [facility] [place] [facility] [place] [address] ProviderIrasema MD [address] [place] [address] Social History Tobacco Use Types [...] - 07/27/2019 2:56 PM CDT [facility] [place] [address] GUILLERMINA HINOJOSA :1940 Visit Time:07/25/2019 Your Visit Summary Your Care Team Admitting Physician - GRETA SOTOMAYOR MD-YOLI Attending Physician - GRETA SOTOMAYOR MD-U Primary Care Physician - ELISEO VALENCIA MD-[facility] Referring Physician - [facility], NOT LISTED Your Diagnosis Lumbar radiculopathy, [...] PM EDT Comments with x rays at [facility] at 1:45 PM prior to appointment at 2:30 PM Where: [address] [place] [address] Business (1) Follow Up with GRETA SOTOMAYOR When 08/06/2019 02:00 PM EDT Comments staple removal Where: [address] [place] [address] Business (1) Medications What How Much [...] these instructions at home: Medicines ??? Take uwyd-mab-lnocivo and prescription medicines only as told by [...] cannot use soap and water, use hand driller and reamer. ? Change your bandage as told by [...] your pee (urine) pale yellow. ? Take hnat-aoa-wzmxsca or prescription medicines. ? Eat foods that [...] 05/27/2011 Document Revised: 05/17/2017 Document Reviewed: 05/17/2017 Im[employer] Interactive Patient Education ?? 2020 AlephD. acetaminophen and oxycodone (a SEET a MIN [...] may report side effects to FDA at 3-133-DHT-4195. What other drugs will affect acetaminophen and [...] affect acetaminophen and oxycodone, including prescription and eloj-qzs-ynzghoh medicines, vitamins, and herbal products. Not all [...] to ensure that the information provided by [employer]. ('The Fred Rogers') is accurate, up-to-date, and complete, but no guarantee is made to that effect. Drug information contained herein may be time sensitive. [employer] information has been compiled for use by healthcare practitioners and consumers in the [place] and therefore The [employer] Rogers does not warrant that uses outside of the [place] are appropriate, unless specifically indicated otherwise. [employer] drug information does not endorse drugs, diagnose patients or recommend therapy. [employer] drug information is an informational resource designed [...] or appropriate for any given patient. [employer] does not assume any responsibility for any aspect of healthcare administered with the aid of information The Fred Rogers provides. The information contained herein is not intended to cover all possible uses, directions, precautions, warnings, drug interactions, allergic reactions, or adverse effects. If you have questions about the drugs you are taking, check with your doctor, nurse or pharmacist. Copyright 8279-0440 [employer]. Version: .. Revision Date: 03/07/2019. cyclobenzaprine (paresh [...] may report side effects to FDA at 8-330-KDP-4473. What other drugs will affect cyclobenzaprine? Using [...] drugs may affect cyclobenzaprine, including prescription and vtxw-avx-pzkjeoj medicines, vitamins, and herbal products. Not all [...] to ensure that the information provided by [employer]. ('[employer]') is accurate, up-to-date, and complete, but no guarantee is made to that effect. Drug information contained herein may be time sensitive. The Fred Rogers information has been compiled for use by healthcare practitioners and consumers in the [place] and therefore The Fred Rogers does not warrant that uses outside of the [place] are appropriate, unless specifically indicated otherwise. [employer] drug information does not endorse drugs, diagnose patients or recommend therapy. [employer] drug information is an informational resource designed [...] effective or appropriate for any given patient. [facility] does not assume any responsibility for any aspect of healthcare administered with the aid of information [facility] provides. The information contained herein is not intended to cover all possible uses, directions, precautions, warnings, drug interactions, allergic reactions, or adverse effects. If you have questions about the drugs you are taking, check with your doctor, nurse or pharmacist. Copyright 7042-7148 Best [facility]. Version: 5.01. Revision Date: 11/09/2017. Emergency Awareness [...] Assistance with quitting is available by contacting 2-007-WQUR-NOW. This is a free resource providing counseling, [...] range between ( 0.0 and 7.0 ) [place] #: 0.64 K/uL -- Normal range between ( 0.16 and 1.00 ) Eos #: 0.19 x10(3)/uL -- Normal range between ( 0.00 and 0.80 ) [place] %: 5.1 % -- Normal range between [...] ) Urine Bilirubin Dipstick: Negative Urine Specific [place]: 1.018 -- Normal range between ( 1.005 [...] was given the opportunity to ask questions. Patient/Engineering Design Supervisor Name: Patient/Engineering Design Supervisor Signature: Relationship to Patient: Clinician/Hospital Engineering Design Supervisor Signature: Date: documented in this encounter Plan of Treatment Not on file documented as of this encounter Visit Diagnoses Not on filedocumented in this encounter
--- OUTSIDE RECORDS SUMMARY | 2024-11-14 10:32 | XMS_ITS | Encounter Summary ---
Author Organization [employer] ([place], [place], [place], [place]) Address [address] [place] [address] Care Team Providers Care Skip Locator Name Role Phone Unavailable Primary Care Provider Unavailabl e Encounter Details Date Type Department Care Team (Late st Contact Info) Description 07/25/2019 Transcribed Document [facility] [place] Medicine [facility] [place] [address] ProviderIrasema MD [address] [place] [address] Social History Tobacco Use Types [...] Directive Type : Other: general power of fur plucker Copy Advance Directive Verified/on Chart : Yes [...] Ambulatory Legal Guardian : Unaccompanied Support Person/Patient Group Fitness Assistant Department Head : Yes Support Person/Pt Rep Name : Patricio Angel son Support Person/Pt Rep Contact Information : [phone] Want Family/Rep/Phys Notified of Admit : No Emergency Contact #1 : Patricio angel Emergency Contact #1 Emergency Contact #1 Relationship : son Emergency Contact #2 : na Emergency Contact #2 Phone Number : nan Emergency Contact #2 Relationship : na` Information Obtained From : Patient Primary Language : Equatorial [place]inean Preferred Communication Mode : Verbal Communication Barrier [...] Scale Risk Level : 25-45 Medium Risk [place] Fall Interventions : Adequate lighting, Assistive devices [...] Source : Measured Height Entry Format : [place] Height, Feet : 5 ft(Converted to: 152 cm, 60 Inch) Height, Inches : 0 Inch(Converted to: 0 ft 0 Inch, 0.00 cm) Clinical Height : 152.4 cm Weight Source : Standing scale Weight Entry Format : [place] Clinical Dosing Weight : 69.74 kg Weight, Pounds : 153 lb Weight, Ounces : 7 oz Body Surface Area (BSA) : 1.67 m2 Body Mass Index : 30 kg/m2 (HI) [place] Body Weight : 45 kg Rosalva Kay [...] Rosalva Kay RN - 07/25/2019 16:29 EDT Andrews Suicide Severity Rating Scale (C-SSRS) CSSRS Past [...] on TueJuly 24 in at 0930 am Mosque Preference : Yazdanism Spiritual/Cult Concerns/Desires/Needs : Prayer Spiritual/Cultural Needs Comment [...]
--- OUTSIDE RECORDS SUMMARY | 2024-11-14 10:32 | XMS_ITS | Encounter Summary ---
Author Organization [employer] ([place], [place], [place], [place]) Address [address] [place] [address] Care Team Providers Care Infection Control Nurse Name Role Phone Unavailable Primary Care Provider Unavailabl e Encounter Details Date Type Department Care Team (Late st Contact Info) Description 07/25/2019 Transcribed Document [facility] [place] Family Medicine [facility] [place] [address] ProviderIrasema MD [address] [place] [address] Social History Tobacco Use Types [...]
--- OUTSIDE RECORDS SUMMARY | 2024-11-14 10:32 | XMS_ITS | Encounter Summary ---
Author Organization [employer] ([place], [place], [place], [place]) Address [address] [place] [address] Care Team Providers Care Clinical Research Spec Name Role Phone Unavailable Primary Care Provider Unavailabl e Encounter Details Date Type Department Care Team (Late st Contact Info) Description 07/27/2019 Transcribed Document [facility] [place] [facility] [place] [address] ProviderIrasema MD [address] [place] [address] Social History Tobacco Use Types [...] Irasema ProviderMD - 07/27/2019 3:12 PM CDT [facility] [place] [address] GUILLERMINA HINOJOSA :1940 Visit Time:07/25/2019 Your Visit Summary Your Care Team Admitting Physician - GRETA SOTOMAYOR MD-YOLI Attending Physician - GRETA SOTOMAYOR MD-U Primary Care Physician - ELISEO VALENCIA MD-[facility] Referring Physician - [facility], NOT LISTED Your Diagnosis Lumbar radiculopathy, [...] Equipment for Home Use: [facility]-- Community Services: Discharge Activity: Discharge Activity: No heavy lifting over 10 lbs Diet: Discharge Diet: Resume usual diet as tolerated Follow-Up Appointments Follow Up with GRETA SOTOMAYOR When 08/27/2019 01:45 PM EDT Comments with x rays at [facility] at 1:45 PM prior to appointment at 2:30 PM Where: [address] [place] [address]- Business (1) Follow Up with GREAT SOTOMAYOR When 08/06/2019 02:00 PM EDT Comments staple removal Where: [address] [place] [address]- Business (1) Medications What How Much [...] these instructions at home: Medicines ??? Take ytra-tex-gozqtqz and prescription medicines only as told by [...] cannot use soap and water, use hand musculoskeletal physiotherapist. ? Change your bandage as told by [...] your pee (urine) pale yellow. ? Take oemg-ubb-nirrvqd or prescription medicines. ? Eat foods that [...] 05/27/2011 Document Revised: 05/17/2017 Document Reviewed: 05/17/2017 Ass[employer] Interactive Patient Education ?? 2020 [place]. acetaminophen and oxycodone (a SEET a MIN [...] may report side effects to FDA at 1-573-DIN-8063. What other drugs will affect acetaminophen and [...] affect acetaminophen and oxycodone, including prescription and aonv-ubf-shqydme medicines, vitamins, and herbal products. Not all [...] to ensure that the information provided by [employer]. ('[employer]') is accurate, up-to-date, and complete, but no guarantee is made to that effect. Drug information contained herein may be time sensitive. [employer] information has been compiled for use by healthcare practitioners and consumers in the [place] and therefore [employer] does not warrant that uses outside of the [place] are appropriate, unless specifically indicated otherwise. [employer] drug information does not endorse drugs, diagnose patients or recommend therapy. [employer] drug information is an informational resource designed [...] effective or appropriate for any given patient. [employer] does not assume any responsibility for any aspect of healthcare administered with the aid of information [employer] provides. The information contained herein is not intended to cover all possible uses, directions, precautions, warnings, drug interactions, allergic reactions, or adverse effects. If you have questions about the drugs you are taking, check with your doctor, nurse or pharmacist. Copyright 3027-1480 [employer]. Version: .. Revision Date: 03/07/2019. cyclobenzaprine (paresh [...] may report side effects to FDA at 2-692-ONM-2281. What other drugs will affect cyclobenzaprine? Using [...] drugs may affect cyclobenzaprine, including prescription and urji-kbl-kxfvpsq medicines, vitamins, and herbal products. Not all [...] to ensure that the information provided by [employer]. ('Multum') is accurate, up-to-date, and complete, but no guarantee is made to that effect. Drug information contained herein may be time sensitive. [employer] information has been compiled for use by healthcare practitioners and consumers in the [place] and therefore [employer] does not warrant that uses outside of the [place] are appropriate, unless specifically indicated otherwise. [employer] drug information does not endorse drugs, diagnose patients or recommend therapy. [employer] drug information is an informational resource designed [...] effective or appropriate for any given patient. [employer] does not assume any responsibility for any aspect of healthcare administered with the aid of information [employer] provides. The information contained herein is not intended to cover all possible uses, directions, precautions, warnings, drug interactions, allergic reactions, or adverse effects. If you have questions about the drugs you are taking, check with your doctor, nurse or pharmacist. Copyright 1712-9965 [employer]. Version: 5.01. Revision Date: 11/09/2017. Emergency Awareness [...] Assistance with quitting is available by contacting 0-480-SJEPNOW. This is a free resource providing counseling, [...] range between ( 0.0 and 7.0 ) [place] #: 0.64 K/uL -- Normal range between ( 0.16 and 1.00 ) Eos #: 0.19 x10(3)/uL -- Normal range between ( 0.00 and 0.80 ) [place] %: 5.1 % -- Normal range between [...] ) Urine Bilirubin Dipstick: Negative Urine Specific [place]: 1.018 -- Normal range between ( 1.005 [...] was given the opportunity to ask questions. Patient/Railroad Car Cleaning Supervisor Name: Patient/Railroad Car Cleaning Supervisor Signature: Relationship to Patient: Clinician/Hospital Railroad Car Cleaning Supervisor Signature: Date: Electronically signed by Levy, [facility] Conversion Environmental Remediation Engineer Best at 06/02/2022 1:50 PM CDT documented in this encounter Plan of Treatment Not on file documented as of this encounter Visit Diagnoses Not on filedocumented in this encounter
--- OUTSIDE RECORDS SUMMARY | 2024-11-14 10:32 | XMS_ITS | Encounter Summary ---
Author Organization [employer] ([place], [place], [place], [place]) Address [address] [place] [address] Care Team Providers Care Teachers Assistant Name Role Phone Unavailable Primary Care Provider Unavailabl e Encounter Details Date Type Department Care Team (Late st Contact Info) Description 07/19/2019 Transcribed Document [facility] [place] [address] [place] [address] ProviderIrasema MD [address] [place] [address] Social History Tobacco Use Types [...] 07/19/2019 14:21 EDT Electronically signed by Levy [facility] Conversion Manager Of Selection And Assessment Cerner at 06/02/2022 1:44 PM CDT documented in this encounter Plan of Treatment Not on file documented as of this encounter Visit Diagnoses Not on filedocumented in this encounter
--- OUTSIDE RECORDS SUMMARY | 2024-11-14 10:32 | XMS_ITS | Encounter Summary ---
Author Organization [employer] ([place], [place], [place], [place]) Address [address] [place] [address] Care Team Providers Care International Tax Manager Name Role Phone Unavailable Primary Care Provider Unavailabl e Encounter Details Date Type Department Care Team (Late st Contact Info) Description 07/24/2019 Transcribed Document [facility] [place] Family Medicine [address] [place] [address] ProviderIrasema MD [address] [place] [address] Social History Tobacco Use Types [...] On: 07/24/2019 14:59 EDT by SANNA MARRERO Natural Sciences Professor Primary Insurance Authorization Authorization and Policy Numbers : Insurance 1 Health Plan: MEDICARE Policy Number: [id number] Authorization Number: Insurance 2 Health Plan: ANTH HMOPPO Policy Number: [id number] Authorization Number: Insurance Primary Name : Medicare Authorized Service Begin Date-Primary : 07/25/2019 EDT Authorization Comments-Primary : Pt is scheduled for INPT Lumbar Fusiion Posterior 3 Level Intrathecal Pain Pump replace/revise on 07-25-2019 Medicare: NPR Historical Authorization Comments-Primary : No Authorization Comments Found SANNA MARRERO, Natural Sciences Professor - 07/24/2019 14:59 EDT documented in this encounter Plan of Treatment Not on file documented as of this encounter Visit Diagnoses Not on filedocumented in this encounter
--- OUTSIDE RECORDS SUMMARY | 2024-11-14 10:32 | XMS_ITS | Encounter Summary ---
Author Organization [employer] ([place], [place], [place], [place]) Address [address] [place] [address] Care Team Providers Care Director Of Radio Services Name Role Phone Unavailable Primary Care Provider Unavailabl e Encounter Details Date Type Department Care Team (Late st Contact Info) Description 07/25/2019 Transcribed Document [facility] Neurology - [address] [facility] [address] [place] [address] Sebastián Barboza MD [address] [facility] [address] [place] [address] Social History Tobacco Use Types [...] 6. Intraoperative CT scan with stereotactic navigation. SOFTWARE DEVELOPMENT INTERN: Salvador Suarez PA-C TYPE OF ANESTHESIA: GEA. [...] stereotactic navigation, the usual freehand techniques, the Swogo system, pedicle screws were placed at L3, [...] 300 mL. DRAINS: Frank Anthony. COMPLICATIONS: None. /[id number] Sebastián Barboza MD MPT/AQ / MPT / MODL /[id number] CC: Heath Rogers Dr documented in this encounter Plan of Treatment Not on file documented as of this encounter Visit Diagnoses Not on filedocumented in this encounter
--- OUTSIDE RECORDS SUMMARY | 2024-11-14 10:32 | XMS_ITS | Encounter Summary ---
Author Organization [employer] ([place], [place], [place], [place]) Address [address] [place] [address] Care Team Providers Care Innersole Fitter Name Role Phone Unavailable Primary Care Provider Unavailabl e Encounter Details Date Type Department Care Team (Late st Contact Info) Description 07/25/2019 Transcribed Document [facility] [place] Family Medicine [address] [place] [address] ProviderIrasema MD [address] [place] [address] Social History Tobacco Use Types [...]
--- OUTSIDE RECORDS SUMMARY | 2024-11-14 10:32 | XMS_ITS | Encounter Summary ---
Author Organization [employer] ([place], [place], [place], [place]) Address [address] [place] [address] Care Team Providers Care Underwriting Operations Manager Name Role Phone Unavailable Primary Care Provider Unavailabl e Encounter Details Date Type Department Care Team (Late st Contact Info) Description 07/25/2019 Transcribed Document [facility] [place] [address] [place] [address] ProviderIrasema MD [address] [place] [address] Social History Tobacco Use Types Packs/Day Years [...] On: 07/25/2019 16:21 EDT by Isaiah Aguilar, ACCOUNTING INSTRUCTOR LEAD Meds to Bed Enrollment Patient Enrollment Decision: : No/do not enroll in meds to bed program Reason for Declining Meds to Bed Program: : Other: NA Isaiah Aguilar ACCOUNTING INSTRUCTOR LEAD - 07/26/2019 9:14 EDT documented in this encounter Plan of Treatment Not on file documented as of this encounter Visit Diagnoses Not on filedocumented in this encounter
--- OUTSIDE RECORDS SUMMARY | 2024-11-14 10:32 | XMS_ITS | Encounter Summary ---
Author Organization [employer] ([place], [place], [place], [place]) Address [address] [place] [address] Care Team Providers Care Mobile Device Engineer Name Role Phone Unavailable Primary Care Provider Unavailabl e Encounter Details Date Type Department Care Team (Late st Contact Info) Description 06/25/2019 Transcribed Document [facility] [place] [facility] [address] ProviderIrasema MD [address] [place] [address] Social History Tobacco Use Types [...] On: 06/25/2019 13:38 EDT by KALYAN HASSAN, agricultural education instructor Documentation Discharge Date/Time : 06/25/2019 14:45 EDT [...]
--- OUTSIDE RECORDS SUMMARY | 2024-11-14 10:32 | XMS_ITS | Encounter Summary ---
Author Organization [employer] ([place], [place], [place], [place]) Address [address] [place] [address] Care Team Providers Care Telephone Maintenance Mechanic Name Role Phone Unavailable Primary Care Provider Unavailabl e Encounter Details Date Type Department Care Team (Late st Contact Info) Description 07/25/2019 Transcribed Document [facility] [place] Family Medicine [address] [place] [address] ProviderIrasema MD [address] [place] [address] Social History Tobacco Use Types [...] AMAYA GARIBAY, PT - 07/26/2019 11:12 EDT Water Softener Servicer Goals Mobility/Bed Mobility LTG PT Grid Goal [...]
--- OUTSIDE RECORDS SUMMARY | 2024-11-14 10:32 | XMS_ITS | Encounter Summary ---
Author Organization [employer] ([place], [place], [place], [place]) Address [address] [place] [address] Care Team Providers Care Damascener Name Role Phone Unavailable Primary Care Provider Unavailabl e Encounter Details Date Type Department Care Team (Late st Contact Info) Description 06/25/2019 Transcribed Document [facility] [place] [address] [place] [address] ProviderIrasema MD [address], [...] including vitamins, herbs, eye drops, creams, and afzc-iqp-wptyzeo medicines. ??? Previous problems you or members [...] 09/23/2004 Document Revised: 06/15/2016 Document Reviewed: 11/13/2015 [employer] Patient Education ? 2019 [employer]. Spinal Headache A spinal headache is a [...] Follow these instructions at home: ??? Take zmuk-hjq-ugusaxq and prescription medicines only as told by [...] 07/23/2002 Document Revised: 03/15/2018 Document Reviewed: 03/15/2018 [employer] Interactive Patient Education ? 2019 [employer] Cerebrospinal Fluid Leak, Adult Cerebrospinal fluid [...] with your health care providers. ??? Take xzgq-yzo-rsddiqx and prescription medicines only as told by [...] 06/11/2016 Document Revised: 08/20/2016 Document Reviewed: 06/11/2016 [employer] Interactive Patient Education ? 2019 [employer] Lumbar Puncture, Care After This sheet [...] a bad smell. General instructions ??? Take dfyr-luo-erxvlws and prescription medicines only as told by [...] 03/16/2017 Elsevier Interactive Patient Education ? 2019 [employer] documented in this encounter Plan of Treatment Not on file documented as of this encounter Visit Diagnoses Not on filedocumented in this encounter
--- OUTSIDE RECORDS SUMMARY | 2024-11-14 10:32 | XMS_ITS | Encounter Summary ---
Author Organization [employer] ([place], [place], [place], [place]) Address [address] [place] [address] Care Team Providers Care Medical Referral Coordinator Name Role Phone Unavailable Primary Care Provider Unavailabl e Encounter Details Date Type Department Care Team (Late st Contact Info) Description 07/25/2019 Transcribed Document [facility] [place] [address] [place] [address] ProviderIrasema MD [address] [place] [address] Social History Tobacco Use Types [...] ProviderMD - 07/25/2019 12:07 PM CDT [facility] Main OR Preop Summary Primary Physician: GRETA SOTOMAYOR MD-SNU Finalized Date/Time: 07/25/19 14:37:09 Pt. Name: GUILLERMINA PAERCE D.O.B./Sex: 1940 Female Med Rec #: [id number] Physician: GRETA SOTOMAYOR MD-SNU Financial #: [id number] Pt. Type: I Room/Bed: ASA/3 Admit/Disch: 07/25/19 06:54:00 - Institution: [facility] PreOp Case Times Entry 1 In Preop 07/25/19 09:09:00 Ready for Holding n/a Room Patient Ready for 07/25/19 10:50:00 Surgery Patient Out of Preop 07/25/19 11:25:00 Patient Out of n/a Holding Room Last Modified By: Cindy Arevalo RN 07/25/19 14:37:08 [facility] PreOp Case Times Audit 07/25/19 14:37:08 Main Entree Cook And Cashier: [id number] Modifier: CINDRIM <+> 1 Patient Out of Preop Finalized By: Cindy Arevalo RN Document Signatures Signed By: Cindy Arevalo RN 07/25/19 14:37 Electronically signed by Levy [facility] Conversion Seafood Packer Cerner at 06/02/2022 2:00 PM CDT documented in this encounter Plan of Treatment Not on file documented as of this encounter Visit Diagnoses Not on filedocumented in this encounter
--- OUTSIDE RECORDS SUMMARY | 2024-11-14 10:32 | XMS_ITS | Clinical Summary ---
Author Organization [employer] ([place], [place], [place], [place]) Address [address] [place] [address] Care Team Providers Care Superintendent Generating Plant Name Role Phone Unavailable Primary Care Provider [...]
--- OUTSIDE RECORDS SUMMARY | 2024-11-14 10:32 | XMS_ITS | Encounter Summary ---
Author Organization [employer] ([place], [place], [place], [place]) Address [address] [place] [address] Care Team Providers Care Monument Mason Name Role Phone Unavailable Primary Care Provider Unavailabl e Encounter Details Date Type Department Care Team (Late st Contact Info) Description 07/26/[address] [facility] [place] [address] [place] [address] ProviderIrasema MD [address] [place] [address] Social History Tobacco Use Types [...] Insurance 1 Health Plan: MEDICARE Policy Number: [id number] Authorization Number: Insurance 2 Health Plan: [facility] Policy Number: [id number] Authorization Number: Insurance Primary Name : Medicare Authorized Service Begin Date-Primary : 07/25/2019 EDT Historical Authorization Comments-Primary : Comment 1: Pt is scheduled for INPT Lumbar Fusiion Posterior 3 Level Intrathecal Pain Pump replace/revise on 07-25-2019 Medicare: NPR (SANNA MARRERO, Road Freight Conductor 07/24/2019 14:59) Addie Ricci Rn-Utilization Review - 07/26/2019 12:01 EDT Electronically signed by Levy, [facility] Conversion Diamond Die Driller Cerner at 06/02/2022 2:04 PM CDT documented in this encounter Plan of Treatment Not on file documented as of this encounter Visit Diagnoses Not on filedocumented in this encounter
--- OUTSIDE RECORDS SUMMARY | 2024-11-14 10:32 | XMS_ITS | Encounter Summary ---
Author Organization [employer] ([place], [place], [place], [place]) Address [address] [place] [address] Care Team Providers Care Golf Starter And Ranger Name Role Phone Unavailable Primary Care Provider Unavailabl e Encounter Details Date Type Department Care Team (Late st Contact Info) Description 07/27/2019 Transcribed Document [facility] [place] [address] [place] [address] ProviderIrasema MD [address] [place] [address] Social History Tobacco Use Types [...] On: 07/27/2019 16:34 EDT by PERFECTO DONALDSON RN-Records Management AssociateLoan Teller Progress Note Discharge Arrangements : Patient Post-Acute [...] with D/C Plan? : Yes PERFECTO DONALDSON RN-Records Management Associate - 07/27/2019 16:34 EDT Electronically signed by Levy [facility] Conversion Physician Office Nurse Cerner at 06/02/2022 1:43 PM CDT documented in this encounter Plan of Treatment Not on file documented as of this encounter Visit Diagnoses Not on filedocumented in this encounter
--- OUTSIDE RECORDS SUMMARY | 2024-11-14 10:32 | XMS_ITS | Encounter Summary ---
Author Organization [employer] ([place], [place], [place], [place]) Address [address] [place] [address] Care Team Providers Care Cargo Broker Name Role Phone Unavailable Primary Care Provider Unavailabl e Encounter Details Date Type Department Care Team (Late st Contact Info) Description 07/25/2019 Transcribed Document [facility] Family Medicine [address] [place] [address] ProviderIrsaema MD [address] [place] [address] Social History Tobacco Use Types [...] Ugarte STUDENT-OCCUPATIONAL THERAPIST - 07/26/2019 13:55 EDT Retirement Goals, OT Grooming LTG Grid Goal #1 [...] OT Eval Low Complexity : 1 Rosalva Uagrte STUDENT-OCCUPATIONAL THERAPIST - 07/26/2019 13:55 EDT documented in this encounter Plan of Treatment Not on file documented as of this encounter Visit Diagnoses Not on filedocumented in this encounter
--- OUTSIDE RECORDS SUMMARY | 2024-11-14 10:32 | XMS_ITS | Encounter Summary ---
Author Organization [employer] ([place], [place], [place], [place]) Address [address] [place] [address] Care Team Providers Care Compression Molding Machine Tender Name Role Phone Unavailable Primary Care Provider Unavailabl e Encounter Details Date Type Department Care Team (Late st Contact Info) Description 07/25/2019 Transcribed Document [facility] Radiology [address] [place] [address] Ramon Voss MD [address] [address] Social History Tobacco Use Types [...] is a 78 yo female admitted to [facility] per Dr. Barboza for an L3-S1 PLIF. Preoperatively patient was found to have advanced spondylolisthesis of the lumbar spine and elected surgical intervention after failing conservative treatment. Patient is followed perioperatively while hospitalized for medical management. Patient seen initially in PACU. Alert. CHINIK. Denies history of CVA, seizures, DVT. No [...] Congestive heart failure Coronary artery disease s/p [place] s/p stents GERD - Gastro-esophageal reflux disease H/O Hemorrhoids Hiatal hernia [place] (hard of hearing) Hyperlipidemia Hypertension Restless legs [...] distress]. Neurologic: [Awake, alert, and oriented X3, [place] Eye: [PERRL, EOMI, normal conjunctiva]. HENT: [Normocephalic, CHINIK, moist oral mucosa, no scleral icterus Neck: [...]
--- OUTSIDE RECORDS SUMMARY | 2024-11-14 10:32 | XMS_ITS | Encounter Summary ---
Author Organization [employer] ([place], [place], [place], [place]) Address [address] [place] [address] Care Team Providers Care Packing And Wrapping Supervisor Name Role Phone Unavailable Primary Care Provider Unavailabl e Encounter Details Date Type Department Care Team (Late st Contact Info) Description 07/25/2019 Transcribed Document [facility] [place] Family Medicine [address] [place] [address] ProviderIrasema MD [address] [place] [address] Social History Tobacco Use Types [...] Historical ProviderMD - 07/25/2019 12:07 PM CDT [facility] Main OR IntraOp Summary Primary Physician: GRETA SOTOMAYOR MD-SNU Finalized Date/Time: 07/26/19 10:29:18 Pt. Name: GUILLERMINA HINOJOSA Zaida Taveras/Sex: 1940 Female Med Rec #: [id number] Physician: GRETA SOTOMAYOR MD-SNU Financial #: [id number] Pt. Type: I Room/Bed: [facility]/ Admit/Disch: 07/25/19 06:54:00 - Institution: [facility] IntraOp Case Attendance Entry 1 Entry 2 Entry 3 Case Attendee GRETA SOTOMAYOR Byrd, Charlie D, RN COMBEST, ASHLEY P, RESIDENCY COORDINATOR MD-SNU Role Performed Surgeon/Proceduralist, Metal Flow Coordinator, First RESIDENCY COORDINATOR/Nurse Swing Grinder First Time In 07/25/19 11:31:00 07/25/19 11:31:00 [...] WEEMS, PATRICIA SWANN RN Role Performed Physician equal opportunity assistant Scrub, First Metal Flow Coordinator, Second Time In 07/25/19 11:31:00 07/25/19 [...] GREG BARRAZA Role Performed Anesthesiologist of Vendor Flash Drier Operator Record Time In 07/25/19 11:31:00 07/25/19 11:31:00 [...] Case Attendee ROBY MORROW, RN KENNETH SMITH, COMPUTER TECHNOLOGY INSTRUCTOR Role Performed Metal Flow Coordinator, Second Scrub, First Time In 07/25/19 12:21:00 07/25/19 11:31:00 Time Out 07/25/19 14:38:00 07/25/19 12:00:00 Procedure Lumbar Fusion Posterior Lumbar Fusion Posterior 3 Level, Intrathecal 3 Level, Intrathecal Pain Pump Replace/Revise Pain Pump Replace/Revise Other Attendee [facility] Superficial Wound Closed By: Last Modified By: ROBY MORROW, ROBY BLACKBURN, RN 07/25/19 14:38:13 07/25/19 14:38:13 [facility] IntraOp Case Attendance Audit 07/25/19 14:38:13 College Athletic Director: GOYO Modifier: [email or web address] 1 <+> Time Out [...] Level, Intrathecal Pain Pump Replace/Revise 07/25/19 14:09:37 College Athletic Director: [email or web address] Modifier: WASSONSY 1 <*> Procedure Lumbar [...] Level, Intrathecal Pain Pump Replace/Revise 07/25/19 12:25:06 College Athletic Director: [email or web address] Modifier: [email or web address] <+> 11 Case Attendee <+> 11 Role Performed <+> 11 Time Out <+> 11 Procedure <+> 11 Other Attendee 07/25/19 12:24:05 College Athletic Director: [email or web address] Modifier: [email or web address] 6 <+> Time Out 6 <*> Procedure Lumbar Fusion Posterior 3 Level, Intrathecal Pain Pump Replace/Revise 07/25/19 12:23:46 College Athletic Director: [email or web address] Modifier: [email or web address] 1 <*> Procedure Lumbar [...] Time In <+> 10 Procedure 07/25/19 12:15:49 College Athletic Director: ALBINO Modifier: ALBINO 1 <+> Time In [...] Role Performed <+> 9 Procedure 07/25/19 11:31:28 College Athletic Director: ALBINO Modifier: ALBINO <+> 1 Procedure <+> [...] 8 Role Performed <+> 8 Other Attendee [facility] Case Times Entry 1 Patient In Room Time 07/25/19 11:31:00 Out Room Time 07/25/19 14:38:00 Anesthesia Start Time 07/25/19 11:31:00 Stop Time 07/25/19 14:38:00 Surgery / Procedure Times Start Time 07/25/19 12:07:00 Stop Time 07/25/19 14:27:00 Last Modified By: ROBY MORROW RN 07/25/19 14:38:12 [facility] IntraOp Case Times Audit 07/25/19 14:38:12 College Athletic Director: WASSONSY Modifier: WASSONSY <+> 1 Out Room Time <+> 1 Stop Time 07/25/19 14:27:17 College Athletic Director: WASSONSY Modifier: WASSONSY <+> 1 Stop Time 07/25/19 14:19:32 College Athletic Director: WASSONSY Modifier: WASSONSY 1 <-> Stop Time 07/25/19 14:07:00 07/25/19 14:09:32 College Athletic Director: [email or web address] Modifier: WASSONSY <+> 1 Stop Time 07/25/19 12:11:18 College Athletic Director: [email or web address] Modifier: [email or web address] <+> 1 Start Time [facility] IntraOp Cautery Entry 1 Entry 2 ESU Identification Cautery Type Monopolar ESU BiPolar ESU Cautery Type Comments ID Number [id number] ID Type Hospital Number Hospital Number Cautery [...] Charlie D, RN 07/25/19 12:26:32 07/25/19 12:26:32 [facility] IntraOp Communication Entry 1 Communication To Family/Significant other Comment START Communication By Kota Napoles RN Date and Time 07/25/19 12:17:00 Last Modified By: Kota Napoles RN 07/25/19 12:20:31 [facility] IntraOp Counts Verification Entry 1 Procedure Lumbar Fusion Posterior 3 Level, Intrathecal Pain Pump Replace/Revise Count Info Count Type Sponge, Sharps, Miscellaneous Counts Verification Baseline/pre-procedure Sequence Count Results Not Applicable Counts Performed By Count Performed By KENNETH SMITH CST (Scrub) Count Performed By PATRICIA LAMA, RN (RN) Last Modified By: Kota Napoles RN 07/25/19 12:25:25 [facility] Intra[facility] Counts Final Entry 1 Procedure Lumbar Fusion Posterior 3 Level, Intrathecal Pain Pump Replace/Revise Final Count Info Count Type Sponge, Sharps, Miscellaneous Counts Verification Skin Closure/end of Sequence procedure Count Results Correct, surgeon notified Counts Performed By Count Performed By LUZ ALVAREZ ST (Scrub) Count Performed By Kota Napoles, RN (RN) Last Modified By: ROBY MORROW RN 07/25/19 14:03:34 [facility] IntraOp Cultures and Spec Summary Entry 1 Cultrures and Specimens Specimen Ordered: Yes Test(s) Routine/Path-Lab Requested/Final Disposition Last Modified By: Kota Napoles RN 07/25/19 12:18:15 General Comments: A. EXPLANTED PAIN PUMP [facility] IntraOp Departure from OR Entry 1 Integumentary Assessment Integumentary WDL Assessment WDL Transfer/Handoff Transfer to PACU Phase I Handoff Method Bedside/Face to face, Phone call Handoff Reported to Ml Wilburn RN Post-op Transport Stretcher/rswisher Via Patient Transport DAT SKINNER, Accompanied by MAC POWERS JUSTIN, PA-C Last Modified By: ROBY MORROW RN 07/25/19 14:04:08 [facility] IntraOp Departure from OR Audit 07/25/19 14:04:08 College Athletic Director: [email or web address] Modifier: WASSONSY 1 <+> Patient Transport Accompanied by 1 <*> Handoff Method Phone call [facility] Intra[facility] Drains and Tubes Entry 1 Device Type Baltazar Drain Size 15 FR Drain/Tube Activity Inserted Drain/Tube Suction Bulb Drain/Tube Drainage Serosanguineous Device Location OP SITE Method of Drainage Compression Last Modified By: ROBY MORROW RN 07/25/19 13:53:54 [facility] IntraOp Dressing and Packing Entry 1 Type Dressing Location OP SITE Wound Dressing Item Steristrip, Other Applied By NISHANT WATTS PA-C Other Comments NEOSPORIN OINTMENT, STERISTRIPS, COVADERMS Last Modified By: Kota Napoles RN 07/25/19 12:51:25 [facility] IntraOp Fire Risk Assessment Entry 1 Fire Info Surgical Site or 0- No Incision Above the Xyphoid Open O2 Source 0- No (Mask or Cannula) Available Ignition 1- Yes (ESU, Laser, Light Source) Fire Risk 1 Assessment Score Fire Score Fire Risk Yes Assessment Complete Fire Risk Kota Napoles, certified pedorthotist Verified By Fire Risk 07/25/19 11:29:00 Assessment Verified Date/Time Fire Risk Standard Fire Yes Safety Precautions Followed Last Modified By: Kota Napoles RN 07/25/19 12:16:13 [facility] IntraOp General Case Floatman 1 Case Information OR OR 10 [facility] Case Level 1 Room Verified Yes Wound Class I - Clean Specialty SN Neurosurgery Anesthesia Type General ASA Class 3 Diagnosis Preop Diagnosis LUMBAR RADICULOPATHY Postop Same As Preop No Postop Diagnosis SEE MD POST OP NOTES Last Modified By: Kota Napoles RN 07/25/19 12:17:04 [facility]Op Implant Log Entry 1 Entry 2 Entry 3 Type Tissue Implant Implant (Synthetic) Implant (Synthetic) (Biologic) Implant Log Implant Type Hardware Hardware Tissue Implant Type Other Implant BONE VIVIGEN FRMBLE SCR SPNE SHAHRIAR FIX SCR SPNE SHAHRIAR FIX FEN Identification CELL [id number] Description Implant Quantity 1 2 4 Implant Site OP SITE OP SITE OP SITE Implant Identification Model Number Implant [id number] Identification Serial Number Implant Identification Lot Number Implant Lifenet:Lifenet J&J:Depuy:Depuy Spine J&J:Depuy:Depuy Spine Identification Transplant Srv Cut Off Worker Name: Implant [id number] Identification Catalog Number Implant Size Implant Has an Yes Expiration Date Implant Expiration 06/19/20 Date Wasted Radioactive Material Time Implanted Tissue Implant Continue for Tissue Implant Documentation Tissue Identification Number Graft Prep Per Cut Off Worker Instructions: Tissue Preparation Method: Reconstitution Solution: Reconstitution Solution Lot Number Reconstitution Solution Expiration Date: Thawing Solution Thawing Solution Lot Number Thawing Solution Expiration Date Preparation Materials, Other Preparation Materials, Other Lot Number Preparation Materials, Other Expiration Date Tissue Prepared/Processed By Cut Off Worker Paperwork Completed Implant Type Comment Last Modified By: ROBY MORROW RN WASSON, SANDRA D, RN WASSON, SANDRA D, RN 07/25/19 13:25:36 07/25/19 13:59:42 07/25/19 13:59:42 Entry 4 Entry 5 Entry 6 Type Implant (Synthetic) Implant (Synthetic) Implant (Synthetic) Implant Log Implant Type Hardware Hardware Hardware Tissue Implant Type Implant SCR SPNE SHAHRIAR FIX SCR ILIAM 8MM X 90MM CEMENT SPINAL Identification [id number] Description Implant Quantity 2 2 1 Implant Site OP SITE OP SITE OP SITE Implant Identification Model Number Implant Identification Serial Number Implant Identification Lot Number Implant J&J:Depuy:Depuy Spine J&J:Depuy:Depuy Spine J&J:Depuy:Depuy Spine Identification Cut Off Worker Name: Implant [id number] Identification Catalog Number Implant Size Implant Has an Expiration Date Implant Expiration Date Wasted Radioactive Material Time Implanted Tissue Implant Continue for Tissue Implant Documentation Tissue Identification Number Graft Prep Per Cut Off Worker Instructions: Tissue Preparation Method: Reconstitution Solution: Reconstitution Solution Lot Number Reconstitution Solution Expiration Date: Thawing Solution Thawing Solution Lot Number Thawing Solution Expiration Date Preparation Materials, Other Preparation Materials, Other Lot Number Preparation Materials, Other Expiration Date Tissue Prepared/Processed By Cut Off Worker Paperwork Completed Implant Type Comment Last Modified By: ROBY MORROW RN WASSON, SANDRA D, RN WASSON, SANDRA D, RN 07/25/19 13:59:42 07/25/19 13:59:42 07/25/19 13:59:42 Entry 7 Entry 8 Entry 9 Type Implant (Synthetic) Implant (Synthetic) Implant (Synthetic) Implant Log Implant Type Hardware Hardware Hardware Tissue Implant Type Implant JENN SURG FENESTRATE RIZWANA PRE LOAD [id number] MIS JENN PLY SCRW SET Identification [id number] Description Implant Quantity 1 2 10 Implant Site OP SITE OP SITE OP SITE Implant Identification Model Number Implant Identification Serial Number Implant Identification Lot Number Implant J&J:Depuy J&J:Depuy:Depuy Spine J&J:Depuy:Depuy Spine Identification Cut Off Worker Name: Implant [id number] Identification Catalog Number Implant Size Implant Has an Expiration Date Implant Expiration Date Wasted Radioactive Material Time Implanted Tissue Implant Continue for Tissue Implant Documentation Tissue Identification Number Graft Prep Per Cut Off Worker Instructions: Tissue Preparation Method: Reconstitution Solution: Reconstitution Solution Lot Number Reconstitution Solution Expiration Date: Thawing Solution Thawing Solution Lot Number Thawing Solution Expiration Date Preparation Materials, Other Preparation Materials, Other Lot Number Preparation Materials, Other Expiration Date Tissue Prepared/Processed By Cut Off Worker Paperwork Completed Implant Type Comment Last Modified By: ROBY MORROW RN WASSON, SANDRA D, ROBY BLACKBURN RN 07/25/19 13:59:42 07/25/19 13:59:42 07/25/19 13:59:42 Entry 10 Type Implant (Synthetic) Implant Log Implant Type Hardware Tissue Implant Type Implant RIZWANA PRE-LORD W/LINE Identification [id number] Description Implant Quantity 1 Implant Site OP SITE Implant Identification Model Number Implant Identification Serial Number Implant Identification Lot Number Implant J&J:Depuy:Depuy Spine Identification Cut Off Worker Name: Implant [id number] Identification Catalog Number Implant Size Implant Has an Expiration Date Implant Expiration Date Wasted Radioactive Material Time Implanted Tissue Implant Continue for Tissue Implant Documentation Tissue Identification Number Graft Prep Per Cut Off Worker Instructions: Tissue Preparation Method: Reconstitution Solution: Reconstitution Solution Lot Number Reconstitution Solution Expiration Date: Thawing Solution Thawing Solution Lot Number Thawing Solution Expiration Date Preparation Materials, Other Preparation Materials, Other Lot Number Preparation Materials, Other Expiration Date Tissue Prepared/Processed By Cut Off Worker Paperwork Completed Implant Type Comment Last Modified By: ROBY MORROW RN 07/25/19 13:59:42 [facility] Implant Log Audit 07/25/19 13:59:42 College Athletic Director: WASCLARI Modifier: WASSONSY <+> 2 Implant Identification Description <+> 2 Implant Identification Cut Off Worker Name: <+> 2 Implant Site <+> 2 Implant Quantity <+> 2 Implant Identification Catalog Number <+> 2 Implant Type <+> 2 Type <+> 3 Implant Identification Description <+> 3 Implant Identification Cut Off Worker Name: <+> 3 Implant Site <+> 3 Implant Quantity <+> 3 Implant Identification Catalog Number <+> 3 Implant Type <+> 3 Type <+> 4 Implant Identification Description <+> 4 Implant Identification Cut Off Worker Name: <+> 4 Implant Site <+> 4 Implant Quantity <+> 4 Implant Identification Catalog Number <+> 4 Implant Type <+> 4 Type <+> 5 Implant Identification Description <+> 5 Implant Identification Cut Off Worker Name: <+> 5 Implant Site <+> 5 Implant Quantity <+> 5 Implant Identification Catalog Number <+> 5 Implant Type <+> 5 Type <+> 6 Implant Identification Description <+> 6 Implant Identification Cut Off Worker Name: <+> 6 Implant Site <+> 6 Implant Quantity <+> 6 Implant Identification Catalog Number <+> 6 Implant Type <+> 6 Type <+> 7 Implant Identification Description <+> 7 Implant Identification Cut Off Worker Name: <+> 7 Implant Site <+> 7 Implant Quantity <+> 7 Implant Identification Catalog Number <+> 7 Implant Type <+> 7 Type <+> 8 Implant Identification Description <+> 8 Implant Identification Cut Off Worker Name: <+> 8 Implant Site <+> 8 Implant Quantity <+> 8 Implant Identification Catalog Number <+> 8 Implant Type <+> 8 Type <+> 9 Implant Identification Description <+> 9 Implant Identification Cut Off Worker Name: <+> 9 Implant Site <+> 9 Implant Quantity <+> 9 Implant Identification Catalog Number <+> 9 Implant Type <+> 9 Type <+> 10 Implant Identification Description <+> 10 Implant Identification Cut Off Worker Name: <+> 10 Implant Site <+> 10 Implant Quantity <+> 10 Implant Identification Catalog Number <+> 10 Implant Type <+> 10 Type [facility] Intraoperative Assessment Entry 1 Handoff [...] Modified By: Kota Napoles RN 07/25/19 12:26:55 [facility]Op Intraoperative Equipment Entry 1 Type Equipment Equipment Equipment Anna Suction System ID Number [id number] Setting 200 MM HG Intraop Monitoring Electrocardiogram Five lead placement (ECG) Electrode Placement Blood Pressure Non-Invasive BP Device Source Antiembolic Devices Antiembolic Devices Sequential compression device, knee high Antiembolic Device Bilateral Location Antiembolic Device [id number] ID Number Scopes Photo/Video Documentation Photo No Video No Last Modified By: Kota Napoles RN 07/25/19 12:29:42 [facility] Intra[facility] Medication Admin Entry 1 Entry 2 Entry 3 Medication/Irrigant Bacitracin 50,00units lidocaine 1% w/ Neosporin 15Gm ointment powder vial epinephrine 1:100,000 - [id number] 30ml vial - [id number] Combo Med List Time Administered Route of ADDED TO NS IRRIGATION LOCAL TOPICAL Administration Dose Dose 36519 20 1 Unit of Measure units ml pkt Volume Administered By GRETA SOTOMAYOR TUTT, MATTHEW PAIGE, SAMMONS, JUSTIN, PA-C MD-SNU MD-SNU Procedure Irrigation Irrigant Volume In Irrigant Volume Out Last Modified By: Kota Napoles RN Byrd, Charlie D, RN Byrd, Charlie D, RN 07/25/19 12:39:47 07/25/19 12:39:47 07/25/19 12:39:47 Entry 4 Entry 5 Entry 6 Medication/Irrigant SEALR AQUAMANTYS BIPLR SPNG SURGFOAM thrombin 5000units 6.0-701520 [id number] topical powder - [id number] Combo Med List Time Administered Route of [...] SPINE vancomycin 1Gm vial - vial - [id number] Combo Med List Time Administered Route of [...] [facility] Medication Admin Audit 07/25/19 14:23:06 College Athletic Director: WASSONSY Modifier: WASSONSY 9 <*> Medication/Irrigant vancomycin 1Gm vial - [id number] 9 <*> Medication/Irrigant vancomycin 1Gm vial - [id number] 9 <*> Route of Administration 9 <*> Route of Administration 9 <*> Administered By GRETA SOTOMAYOR MD-SNU 9 <*> Administered By GRETA SOTOMAYOR MD-SNU 9 <*> Dose 9 <*> Dose 9 <*> Unit of Measure 9 <*> Unit of Measure 07/25/19 13:20:09 College Athletic Director: [email or web address] Modifier: WASSONSY 8 <*> Medication/Irrigant 8 [...] of Measure 8 <*> Unit of Measure [facility] Patient Positioning Entry 1 Procedure [...] Modified By: Kota Napoles RN 07/25/19 12:33:24 [facility] Sign In Entry 1 Patient, [...] Modified By: Kota Napoles RN 07/25/19 12:27:33 [facility] Sign Out Entry 1 RN [...] Modified By: ROBY MORROW RN 07/25/19 14:38:36 [facility] Sign Out Audit 07/25/19 14:38:36 College Athletic Director: ALBINO Modifier: WASSONSY <+> 1 OUTCOME STATEMENT: [...] is consistent with measures to prevent infection [facility] IntraOp Skin Prep Entry 1 Procedure [...] Modified By: Kota Napoles RN 07/25/19 12:28:55 [facility] Intra[facility] Skin Prep Audit 07/25/19 12:28:55 College Athletic Director: ALBINO Modifier: ALBINO 1 <+> Prep Agents 1 <+> Methods 1 <*> Procedure Lumbar Fusion Posterior 3 Level, Intrathecal Pain Pump Replace/Revise 1 <+> Prep by 1 <+> Integumentary Assessment [facility] IntraOp Surgical Procedures Entry 1 Entry [...] ROBY BLACKBURN, RN 07/25/19 14:27:32 07/25/19 14:27:32 [facility] Surgical Procedures Audit 07/25/19 14:27:32 College Athletic Director: WASSONSY Modifier: WASSONSY 1 <*> Procedure Lumbar Fusion Posterior 3 Level 1 <*> Stop 07/25/19 14:07:00 2 <*> Procedure Intrathecal Pain Pump Replace/Revise 2 <*> Stop 07/25/19 14:07:00 07/25/19 14:09:33 College Athletic Director: WASSONSY Modifier: WASSONSY <+> 1 Stop <+> 2 Stop 07/25/19 13:38:04 College Athletic Director: WASSONSY Modifier: WASSONSY 1 <*> Procedure Lumbar Fusion Posterior 3 Level 1 <*> Additional Procedure Description (L3 TO S1 PLIF, ILIAC BOLTS USING AIRO, PAIN PUMP REMOVAL WITH SCREW AUGMENTATION 07/25/19 13:34:19 College Athletic Director: WASSONSY Modifier: WASSONSY 1 <*> Procedure Lumbar Fusion Posterior 3 Level 1 <*> Additional Procedure Description (L3 TO S1 PLIF, ILIAC BOLTS USING AIRO, PAIN PUMP REMOVAL) 07/25/19 13:20:30 College Athletic Director: [email or web address] Modifier: WASSONSY 1 <*> Procedure Lumbar Fusion Posterior 3 Level 1 <*> Additional Procedure Description (L3 TO S1 PLIF, POSS ILIAC BOLTS USING AIRO, PAIN PUMP REMOVAL) [facility] Intra[facility] Temp Regulation Devices Entry 1 Temp Regulation Temperature Warm blankets, Forced Regulation Device Air Warming device Temperature 47668 Regulation Device Serial/Unit Number Temperature Upper body Regulation Site Temperature Device 43 C Setting Temperature COMBRADHA, DAT P, RESIDENCY COORDINATOR Regulation Device Applied by Last Modified By: Kota Napoles RN 07/25/19 12:44:48 [facility] Time Out Entry 1 Procedure [...] Modified By: Kota Napoles RN 07/25/19 12:12:18 [facility] X-Ray and Images Entry 1 X-Ray/Imaging Type Other Fluoroscopy Type Other Site OP SITE Head Operator Sulfide Name GREG BARARZA [facility] BRAINLAB AIRO Comment INTRAOPERATIVE CT SCANNER Last Modified By: Kota Napoles RN 07/25/19 12:15:24 Case Comments <None> Finalized By: RAMYA YING Document Signatures Signed By: ROBY MORROW RN 07/25/19 14:38 RAMYA YING 07/26/19 10:29 Electronically signed by Levy [facility] Conversion Intensive Care Nurse Cerner at 06/02/2022 1:50 PM CDT documented in this encounter Plan of Treatment Not on file documented as of this encounter Visit Diagnoses Not on filedocumented in this encounter
--- OUTSIDE RECORDS SUMMARY | 2024-11-14 10:32 | XMS_ITS | Encounter Summary ---
Author Organization [employer] ([place], [place], [place], [place]) Address [address] [place] [address] Care Team Providers Care Jogger Operator Name Role Phone Unavailable Primary Care Provider Unavailabl e Encounter Details Date Type Department Care Team (Late st Contact Info) Description 07/25/2019 Transcribed Document [facility] [place] [facility] [place] [address] ProviderIrasema MD [address], [place] [id number] Social History Tobacco Use Types Packs/Day Years [...] Spiritual consult Ministry Provided to : Patient Orthodox Preference : [facility] Melo Newberry Chaplain-Non Cert - 07/26/2019 5:35 EDT Spiritual Assessment Spiritual Assessment Comment/Summary Points : Spiritual care and brief supportive visit provided to patient. Spirital Assessment Comment/Summary Report : SPIRITUAL ASSESSMENT COMMENT/SUMMARY No qualifying data available. Melo Newberry Chaplain-Non Cert - 07/26/2019 5:35 EDT Interventions Emotional Support : Empathic/Engaged listening, Hope strengths identified, Hope struggles identified Spiritual and Orthodox : Spiritual/Orthodox support provided Melo Newberry Chaplain-Non Cert - 07/26/2019 5:35 EDT Electronically signed by Levy, [facility] Conversion Golf Cart Assembler Cerner at 06/02/2022 1:54 PM CDT documented in this encounter Plan of Treatment Not on file documented as of this encounter Visit Diagnoses Not on filedocumented in this encounter
--- OUTSIDE RECORDS SUMMARY | 2024-11-14 10:32 | XMS_ITS | Encounter Summary ---
Author Organization [employer] ([place], [place], [place], [place]) Address [address] [place] [address] Care Team Providers Care Sticker Hand Name Role Phone Unavailable Primary Care Provider Unavailabl e Encounter Details Date Type Department Care Team (Late st Contact Info) Description 07/25/2019 Transcribed Document [facility] Neurology - [address] [facility] [address] [place] [address] Sebastián Barboza MD [address] [facility] [address] [place] [address] Social History Tobacco Use Types [...] 1940 Associated Diagnoses: None Author: AKILAH LOVELACE, CHRISTIAN SCIENCE READER Chief Complaint back, paolo LE pain Review [...] All Problems Skin cancer / SNOMED CT 2517522445 / Confirmed Restless legs syndrome / SNOMED CT 00580667 / Confirmed Hypertension / SNOMED CT 31341481 / Confirmed Hyperlipidemia / SNOMED CT 67239717 / Confirmed Hiatal hernia / SNOMED CT 232498174 / Confirmed H/O Hemorrhoids / SNOMED CT 754071231 / Confirmed TONAWANDA (hard of hearing) / SNOMED CT 86446755 / Confirmed GERD - Gastro-esophageal reflux disease / SNOMED CT 6283304012 / Confirmed Shortness of breath / SNOMED CT 537618468 / Confirmed Coronary artery disease s/p IA s/p stents / SNOMED CT 6149549756 / Confirmed Congestive heart failure / SNOMED CT 96431086 / Confirmed Back pain radiates down both legs R> L / SNOMED CT 4282144964 / Confirmed AICD (automatic cardioverter/defibrillator) present [facility] / SNOMED CT 7967899488 / Confirmed At risk for sleep apnea / IMO 98467911 / Confirmed Arthritis / SNOMED CT 6255733 / Confirmed Angina / SNOMED CT 513711338 / Confirmed, Active Problems (16) AICD (automatic cardioverter/defibrillator) present [facility] Angina Arthritis At risk for sleep apnea Back pain radiates down both legs R> L Congestive heart failure Coronary artery disease s/p IA s/p stents GERD - Gastro-esophageal reflux disease H/O Hemorrhoids Hiatal hernia TONAWANDA (hard of hearing) Hyperlipidemia Hypertension Restless legs [...] Extraocular movements are intact, glasses. HENT: Normocephalic, TONAWANDA, paolo aids. Neck: Supple, Non-tender. Respiratory: Lungs are clear to auscultation, Respirations are non-labored. Cardiovascular: Normal rate, Regular rhythm, No murmur, No gallop, No edema, L pacemaker/defibrillator. Gastrointestinal: Soft, Non-tender. Genitourinary: No costovertebral angle tenderness. Lymphatics: No lymphadenopathy neck, axilla, groin. Musculoskeletal: painful ROM back, RLE weakness, R lower back pain pump. Integumentary: Warm, Dry, Botines. Neurologic: Alert, Oriented. Psychiatric: Cooperative, Appropriate mood [...]
--- OUTSIDE RECORDS SUMMARY | 2024-11-14 10:32 | XMS_ITS | Clinical Summary ---
Author Organization [facility] Address [address] [place] [address] Care Team Providers Care Furniture Packer Name Role Phone Reji Price MD Primary Care Provider [phone] Allergies No known active allergies Medications atorvastatin [...] Severe obesity (BMI 35.0-39.9) with comorbidity 07/19/2021 Resolved Problems Problem Noted Date Diagnosed Date Resolved Date Chest pain, unspecified type 07/19/2021 11/04/2024 Social History Tobacco Use Types Packs/Day Years [...] [facility]-Bone Density Scan 1941 [facility]-Depression Screening 1941 [facility]-/Child/Adol SDOH Screenings 1940 [facility]- SDOH Screenings 12/29/1959 [facility]-Adult SDOH Screenings 12/29/1959 [facility]-DTaP,Tdap,and Td Vaccines (1 - Tdap) 1960 [facility]-Zoster Vaccines (1 of 2) 12/29/1991 [facility]-RSV Vaccine: 60+ Years or (1 - 1-dose 75+ series) 2016 [id number] Vaccine ( - season) 2024 12/25/2020, 05/15/2020, 04/16/2020 [facility]-Influenza Vaccine [...] age to complete this topic Insurance [facility] Advance Directives * Full Code (Latest Code Status on File) Date Activated Date Inactivated Comments 07/19/2021 11:25 AM 07/20/2021 5:13 PM Question Answer Comments Patient has decision-making capacity? Yes Care Teams Furniture Packer Relationship Specialty Start Date End Date Reji Price MD [address] [place] [address] [address] SYLVIA Vaughan [id number] PCP - General 06/03/22
--- OUTSIDE RECORDS SUMMARY | 2024-11-14 10:32 | XMS_ITS | Encounter Summary ---
Author Organization [employer] ([place], [place], [place], [place]) Address [address] [place] [address] Care Team Providers Care Animal Sitter Name Role Phone Unavailable Primary Care Provider Unavailabl e Encounter Details Date Type Department Care Team (Late st Contact Info) Description 07/19/2019 Transcribed Document [facility] [place] [facility] [place] [address] ProviderIrasema MD [address] [place] [address] Social History Tobacco Use Types [...] Source : Measured Height Entry Format : Taft Height, Feet : 5 ft(Converted to: 152 cm, 60 Inch) Height, Inches : 0 Inch(Converted to: 0 ft 0 Inch, 0.00 cm) Clinical Height : 152.4 cm Weight Source : Standing scale Weight Entry Format : Taft Clinical Dosing Weight : 69.74 kg Weight, Pounds : 153 lb Weight, Ounces : 7 oz Body Surface Area (BSA) : 1.67 m2 Body Mass Index : 30 kg/m2 (HI) Browder Body Weight : 45 kg MARY ANN [...] Directive Type : Other: general power of interim controller MARY ANN CALVERT RN - 07/19/2019 12:59 EDT Spiritual/Cultural Needs Any Spiritual/Cultural Needs or Requests : Yes Spiritual/Cultural Needs Comment : surgery on TueJuly 24 in at 0930 am Spiritual/Cult Concerns/Desires/Needs : Prayer Spiritual/Cultural Needs Comment : surgery on TueJuly 24 in at 0930 am MARY ANN CALVERT RN - 07/19/2019 12:59 EDT [place] Suicide Severity Rating Scale (C-SSRS) CSSRS Past [...] Ambulatory Legal Guardian : Son Support Person/Patient Director Of Casework : Yes Support Person/Pt Rep Name : Patricio Angel son Support Person/Pt Rep Contact Information : [phone] Want Family/Rep/Phys Notified of Admit : No Emergency Contact #1 : Patricio angel Emergency Contact #1 Emergency Contact #1 Relationship : son Emergency Contact #2 : na Emergency Contact #2 Phone Number : laverne Emergency Contact #2 Relationship : na` Information Obtained From : Patient Primary Language : Trinidadian Preferred Communication Mode : Verbal Communication Barrier [...] problem Noble Score : 18 MARY ANN CLAVERT RN - 07/19/2019 12:59 EDT Sleep Apnea [...]
== END 2024-11-13 23:59 ==
LOC: LAB.DROPOF 11-14 09:58
PROVIDERS: PCP Internal Medicine; Visit Provider Internal Medicine
DX: E05.90 Thyrotoxicosis, unspecified without thyrotoxic crisis or storm (principal); Z13.29 Encounter for screening for other suspected endocrine disorder; E83.42 Hypomagnesemia; E87.6 Hypokalemia
CPT/HCPCS: 80053; 83735; 84439; 84443

== ENCOUNTER 2024-12-31 10:33 | Day surgery (SDC) | payer MEDICARE, BC, SELFPAY ==
--- NOTE | 2024-12-27 17:05 | EXP.HP ---
History of Present Illness *Admission Date: 12/31/24 *History of present illness: Mrs. Hinojosa is an 83-year-old female who is here for diagnostic EGD. She has had dysphagia. She also reports a loss of appetite, fullness and early satiety. She has had a 30 pound weight loss since May 2024. She also has nausea/regurgitation and vomiting. She has been on an trxs-nts-pxbotsr PPI. She reports no belching, gassiness or bloating. She did have an EGD with me in October 2020 and had a 4 to 5 cm hiatal hernia with mild linear reactive gastropathy and esophageal dysmotility with cricopharyngeal spasm. I did dilate the esophagus to 20 mm. She did have repeat endoscopy and colonoscopy in July 2021 (Jorgito Otto MD). The examination is deemed medically necessary for diagnostic EGD. The patient has been seen, interviewed and examined prior to the procedure by both myself and the anesthesia provider. [facility] Disclaimer: The information contained in this section may have been updated after the patient was seen, as this information can be updated by other users. Medical History Pre-op exam Asthma Leg weakness, bilateral Leg pain, bilateral Smoking greater than 30 pack years Pulmonary emphysema HLD (hyperlipidemia) Myopericarditis Elevated troponin Pneumonia Chest wall pain Restrictive lung disease Moderate persistent asthma Hernia Atrial flutter Preoperative clearance Left bundle branch block (LBBB) on electrocardiogram Edema SOB (shortness of breath) Carotid artery stenosis Exertional dyspnea Anemia CAD (coronary artery disease) Recent myocardial infarction (~01/27/17) CHF (congestive heart failure) HTN (hypertension) Surgical History AICD (automatic cardioverter/defibrillator) present Family History Other Cervical cancer Family history of hyperlipidemia Family history of hypertension Family history of multiple sclerosis Family history of myocardial infarction Lung cancer No significant family history Skin cancer Social History (Updated 12/31/24 @ 11:18 by Mirna Garcia RN) Smoking Status: Current every day smoker second hand exposure: No alcohol intake: current alcohol intake frequency: 0-2 drinks per day counseling provided: none substance use type: marijuana and other details: Pt reports she doesn't keep marijuana at home, smokes with friend current occupational status: retired Travel in the last 8 weeks?: None household members: children housing: house current occupation: real estate current occupational exposures/hazards: Yes caffeine: Yes Have you lived/traveled outside US in past 30 days?: No Contact w/someone who lives/traveled outside US past 30 days?: No Exposure to someone with infectious disease in past 14 days?: No Do you have a fever (greater than 100.4 F or 38 C)?: No Have you tested positive for COVID-19?: No Exposed to someone with COVID-19 in past 14 days?: No Do you have a sore throat?: No Do you have a cough?: No Do you have any weakness?: No Are you experiencing any nausea/vomitting?: No Do you have any diarrhea?: No Are you experiencing any unusual bleeding?: No Do you have any muscle aches/pain?: No Do you have any abdominal pain?: No Are you experiencing loss of taste or smell?: No Other Medical History Have you received the Flu Vaccine for this season: No Have you received the Pneumonia Vaccine: No Review of Systems Review of Systems Review of systems (narrative): Negative *Cardiovascular Comments: Negative *Gastrointestinal Comments: Negative *Genitourinary Comments: Negative *Musculoskeletal Comments: Negative *Neurologic Comments: Negative Meds Home Medications and Allergies Home Medications ?Medication ?Instructions ?Recorded ?Confirmed ?Type escitalopram oxalate 20 mg tablet 20 mg PO DAILY 02/24/17 12/31/24 History acetaminophen 500 mg tablet 500 mg PO Q6H PRN Pain 04/02/24 12/31/24 History (Tylenol Extra Strength) ferrous sulfate 325 mg (65 mg 325 mg PO DAILY 04/02/24 12/31/24 History iron) tablet (iron) furosemide 40 mg tablet (Lasix) 80 mg PO BID Fluid 04/11/24 12/31/24 History nitroglycerin 0.4 mg sublingual 0.4 mg sublingual NEEDED PRN 06/26/24 12/31/24 Rx tablet Chest Pain #20 tabs atorvastatin 40 mg tablet 40 mg PO HS Cholesterol #90 tabs 07/17/24 12/31/24 Rx metoprolol succinate 50 mg 50 mg PO BID #180 tabs 07/17/24 12/31/24 Rx tablet,extended release 24 hr clopidogrel 75 mg tablet 75 mg PO DAILY #90 tabs 09/21/24 12/31/24 Rx diclofenac sodium 3 % topical gel 1 applic topical BID #100 grams 11/13/24 12/31/24 Rx (Solaraze) New Prescriptions to Start Prescriptions: Allergies Allergy/AdvReac Type Severity Reaction Status Date / Time No Known Allergies Allergy Verified 12/31/24 11:11 Exam *Routine HEENT Exam Head: Present normocephalic Eye: Present EOMI and PERRL ENT: Present mucous membranes moist *Routine Neck Exam Neck: Present supple *Routine Respiratory Exam Respiratory: Present CTA bilaterally *Routine Cardiovascular Exam Cardiovascular: Present RRR *Routine Abdominal Exam Abdominal: Present soft and normoactive bowel sounds; Absent tenderness *Routine Rectal Exam Rectal:: deferred *Routine Genitalia Exam Genitalia:: deferred *Routine Extremities Exam Extremities: Absent cyanosis, clubbing or edema *Routine Skin Exam Skin: Present warm; Absent rash *Routine Neurological Exam Neurological: Present alert and oriented X3 Assessment and Plan *Assessment and plan (1) Nausea & vomiting: Status: Acute Category: Medical Code(s): R11.2 - Nausea with vomiting, unspecified (2) Early satiety: Status: Acute Category: Medical Code(s): R68.81 - Early satiety (3) Loss of appetite: Status: Acute Category: Medical Code(s): R63.0 - Anorexia (4) Weight loss: Status: Acute Category: Medical Code(s): R63.4 - Abnormal weight loss (5) Dysphagia: Status: Acute Category: Medical Code(s): R13.10 - Dysphagia, unspecified Plan A/P: 1. Nausea/vomiting with fullness, early satiety, loss of appetite and weight loss is the preprocedural diagnosis. The patient also reports dysphagia. The patient will be anesthetized/sedated using MAC sedation. The patient has been seen and examined. Cardiac and lung assessment prior to the examination is stable. Proceed with planned diagnostic EGD.
[2024-12-28 10:42] VITALS: BMI 25.4
--- NOTE | 2024-12-31 06:59 | HMH.PROCNOTE ---
[facility] Procedure Note Date: 12/31/24 Time: 12:11 Procedure Note:: Upper Endoscopy Procedure Report: Esophagogastroduodenoscopy with cold biopsies and TTS balloon dilation Endoscopost: Shawn Higginbotham II, MD Referring Physician: Sebastián Ledesma DO Date of Procedure: December 31, 2024 Equipment: Olympus GIF-1100 standard upper endoscope Sedation: MAC sedation Indications: Mrs. Hinojosa is an 84-year-old female who is here for diagnostic EGD. She has had dysphagia. She also reports a loss of appetite, nausea fullness and early satiety. She has had a 30 pound weight loss since May 2024. She also has had some regurgitation and vomiting. She has been on an ccry-qaj-uwvmjcv PPI. She reports no belching, gassiness or bloating. She reports no abdominal pain. She did have an EGD with me in October 2020 and had a 4 to 5 cm hiatal hernia with mild linear reactive gastropathy and esophageal dysmotility with cricopharyngeal spasm. I did dilate the esophagus to 20 mm. She did have repeat endoscopy and colonoscopy in July 2021 (Jorgito Otto MD). The examination is deemed medically necessary for diagnostic EGD. Procedure: Prior to the procedure, a history and physical exam was performed, and patient's medications and allergies were reviewed. The risks, benefits and alternatives of the sedation and procedure were discussed with the patient. All questions were answered and informed consent was obtained. The patient was brought to the procedure room. Patient identification and proposed procedure were verified by the physician and the nurse. The patient was placed in a left lateral decubitus position and the scope was passed under direct vision. Throughout the procedure, the patient's blood pressure, pulse, and oxygen saturations were monitored continuously. The upper GI endoscopy was accomplished without difficulty. The patient tolerated the procedure well. Findings: The scope was passed directly into the upper esophagus and advanced to the third portion of the duodenum. The post bulbar duodenum, ampulla and duodenal bulb were normal with normal mucosa and conniventes. 2 cold biopsies were taken from the second portion of the duodenum for the disaccharidase assay. The scope was withdrawn through a normal duodenal bulb and pylorus into the stomach. There was bile reflux with mild linear reactive gastropathy of the antrum and body of the stomach. Cold biopsies were taken from the antrum. The fundus of the stomach was normal. Upon retroflexion there was a moderate-sized hiatal hernia (5 to 6 cm). There was no paraesophageal component to the hiatal hernia. The scope was then withdrawn into the esophagus. There was no evidence of reflux esophagitis or Guidry's. There were tertiary contractions and evidence of moderate esophageal dysmotility. The entire esophagus was dilated to 60 Danish/20 mm with a TTS hydrostatic balloon. There was mild resistance at the cricopharyngeus. The remainder of the esophageal mucosa was normal. Impression: 1. Cricopharyngeal spasm status post dilation to 20 mm 2. Nonerosive GERD with moderate esophageal dysmotility and moderate size hiatal hernia (5 to 6 cm) 3. Bile reflux with mild linear reactive gastropathy Plan: I will follow-up the biopsies and disaccharidase assay. We will discuss treatment options which may include promotility therapy.
[2024-12-31 11:17] VITALS: BP 154/47; PULSE 65; RESP 16; TEMP 36.4; O2SAT 96; BMI 25.4
[2024-12-31] MEDS: LACTATED RINGERS 1000ML 1,000 ML 50 ML IV (11:38)
--- NOTE | 2024-12-31 11:49 | P.PNANES_ITS ---
[facility] Disclaimer: The information contained in this section may have been updated after the patient was seen, as this information can be updated by other users. Medical History Pre-op exam Asthma Leg weakness, bilateral Leg pain, bilateral Smoking greater than 30 pack years Pulmonary emphysema HLD (hyperlipidemia) Myopericarditis Elevated troponin Pneumonia Chest wall pain Restrictive lung disease Moderate persistent asthma Hernia Atrial flutter Preoperative clearance Left bundle branch block (LBBB) on electrocardiogram Edema SOB (shortness of breath) Carotid artery stenosis Exertional dyspnea Anemia CAD (coronary artery disease) Recent myocardial infarction (~01/27/17) CHF (congestive heart failure) HTN (hypertension) Surgical History AICD (automatic cardioverter/defibrillator) present Family History Other Cervical cancer Family history of hyperlipidemia Family history of hypertension Family history of multiple sclerosis Family history of myocardial infarction Lung cancer No significant family history Skin cancer Social History Smoking Status: Current every day smoker second hand exposure: No alcohol intake: current alcohol intake frequency: 0-2 drinks per day counseling provided: none substance use type: marijuana and other details: Pt reports she doesn't keep marijuana at home, smokes with friend current occupational status: retired Travel in the last 8 weeks?: None household members: children housing: house current occupation: real estate current occupational exposures/hazards: Yes caffeine: Yes Have you lived/traveled outside [place] in past 30 days?: No Contact w/someone who lives/traveled outside US past 30 days?: No Exposure to someone with infectious disease in past 14 days?: No Do you have a fever (greater than 100.4 F or 38 C)?: No Have you tested positive for COVID-19?: No Exposed to someone with COVID-19 in past 14 days?: No Do you have a sore throat?: No Do you have a cough?: No Do you have any weakness?: No Are you experiencing any nausea/vomitting?: No Do you have any diarrhea?: No Are you experiencing any unusual bleeding?: No Do you have any muscle aches/pain?: No Do you have any abdominal pain?: No Are you experiencing loss of taste or smell?: No [facility] Anesthesia Checklist Patient Identification Patient Identification: Arm Band and Verbal (Name & ) Structural Data Admitted From: Home Planned Operative Procedure/s: EGD Consent for Planned Operative Procedure(s) Verified: Yes Verified Documents: Surgical Consent and History and Physical NPO Status Verified Time NPO: 00:00 Additional verifications Anesthesia Reactions: No Hx Blood Transfusions: No Blood Transfusion Reaction: No Previous Colonoscopy: Yes Airway Assessment Mallampati Score:: Class II Dentition: Edentulous Neurological Assessment Level of Consciousness: Awake, Alert and Appropriate Hx Seizures: No Numbness or tingling in extremities: No Anesthesia Plan Anesthesia Risk discussed: Yes Anesthesia Plan: Verified ASA Class: III Anesthesia Type: MAC
[2024-12-31 12:14] VITALS: BP 81/41; PULSE 69; RESP 18; TEMP 36.1; O2SAT 96
[2024-12-31 12:24] VITALS: BP 114/46; PULSE 63; RESP 18; O2SAT 98
[2024-12-31 12:34] VITALS: BP 131/50; PULSE 70; RESP 18; O2SAT 96
[2024-12-31 12:44] VITALS: BP 122/56; PULSE 71; RESP 18; O2SAT 96
[2025-01-03 15:18] LABS: Interpretation Notes (.); Lactase 30.58 (>/= 14.0); Maltase 234.45 (>/= 110.0); Palatinase 15.68 (>/= 8.5); Reference Notes (.); Sucrase 60.37 (>/= 25.0)
== END 2024-12-31 12:57 | disposition home or self-care (01) ==
PROVIDERS: PCP Internal Medicine; Visit Provider Internal Medicine Gastroenterology
PROC: 0DJ08ZZ Inspection of Upper Intestinal Tract, Via Natural or Artificial Opening Endoscopic (ICD-10-PCS; CPT 43239; principal; 2024-12-31 12:30)
DX: K21.9 Gastro-esophageal reflux disease without esophagitis (principal); K31.89 Other diseases of stomach and duodenum; K44.9 Diaphragmatic hernia without obstruction or gangrene; K22.4 Dyskinesia of esophagus; E78.5 Hyperlipidemia, unspecified; D64.9 Anemia, unspecified; I25.10 Atherosclerotic heart disease of native coronary artery without angina pectoris; I11.0 Hypertensive heart disease with heart failure; I50.9 Heart failure, unspecified; F17.200 Nicotine dependence, unspecified, uncomplicated; Z79.02 Long term (current) use of antithrombotics/antiplatelets
CPT/HCPCS: 43239; 43249; 82657; 88305; 88313; C1726; J2003; J2704; J7120